=== PATIENT | female | born 1945 | race Caucasian/White ===

== ENCOUNTER 2018-06-10 10:18 | Day surgery (SDC) | payer MEDICARE, OTHER ==
[2018-06-03 16:21] VITALS: BMI 29.5
[~2018-06-10 10:18] MED LIST: ALPRAZolam 0.25 MG TAB PO PRN; ASPIRIN 325 MG TAB PO ONE; SODIUM CHLORIDE 0.9% 1,000 ML in EMPTY BAG 1 BAG IV ONE
[2018-06-10] MEDS ORDERED: ASPIRIN 325 MG TAB ONE (10:54)
[2018-06-10 10:57] LABS: Glucose,Whole Blood 147 mg/dL (75-99)
[2018-06-10] MEDS ORDERED: METOPROLOL TARTRATE 25 MG TAB PO STA (10:58)
[2018-06-10] MEDS ORDERED: LISINOPRIL 10 MG TAB PO STA (10:58)
[2018-06-10] MEDS ORDERED: DIGOXIN 125 MCG TAB PO ONE (10:59)
[2018-06-10 11:39] LABS: INR 1.1 (<1.2); Prothrombin Time 10.8 sec (9.0-12.0)
[2018-06-10] MEDS: BENZOCAINE SPRAY 1 CAN MUCOUS MEM ONE ×2 (11:42→11:48)
[2018-06-10] MEDS ORDERED: MIDAZOLAM 2 MG/2 ML VIAL IV ONE (11:49)
[2018-06-10] MEDS ORDERED: fentaNYL (PF) 50 MCG/ML 2 ML AMP IV ONE (11:49)
--- NOTE | 2018-06-10 12:37 | ECHOT ---
TRANSESOPHAGEAL ECHOCARDIOGRAM DATE OF SERVICE: 06/05/2018 PERFORMING PHYSICIAN: David Hu MD. PROCEDURE PERFORMED: Transesophageal echocardiogram. INDICATION: This is a pleasant 72-year-old female patient who was found recently to have severe cardiomyopathy along with moderate mitral regurgitation and moderate tricuspid regurgitation. The CHAITANYA is for further clarification of the severity of the mitral regurgitation as well as tricuspid regurgitation. COMPLICATION: None. LEVEL OF SEDATION: Moderate with sedation length of 10 minutes. After obtaining an informed consent, explaining the procedure, benefits, risks, complications and alternatives, the patient was brought to the transesophageal echocardiogram suite. A pulse oximetry and heart rate monitors were attached to the patient prior to the procedure. The patient's throat was sprayed using lidocaine locally. Following that, the patient was turned into left lateral position. A bite guard was placed and the patient was then sedated with the above doses of Versed and fentanyl in divided doses. Following that, the transesophageal echocardiogram probe was advanced through the bite guard into the mid esophagus where 2-D echocardiogram images as well as color Doppler images of various cardiac structures were obtained. We evaluated the interatrial septum using 2-D echocardiogram, color Doppler, and contrast study. The procedure was completed. There were no complications. FINDINGS: The left ventricle appears to be dilated. The left ventricular systolic function is severely impaired with EF between 25%-30% with global hypokinesia. The right ventricle is of normal size and function. The left atrium is severely dilated. There was spontaneous echo contrast seen in the left atrium. The aortic valve is thickened and calcified by trileaflet valve without stenosis with trace insufficiency. The mitral valve seems to be thickened and calcified with evidence of moderate mitral regurgitation with vena contract measurement of 0.5 cm. The tricuspid valve seems to be also regurgitant with evidence of moderate regurgitation only. The left atrial appendage appeared to be free from any thrombus. The interatrial septum appeared to be intact. CONCLUSION: 1. Severe cardiomyopathy with ejection fraction around 30%. 2. Severe left atrial enlargement. 3. Intact interatrial septum without any evidence of shunt. 4. Normal left atrial appendage without any evidence of thrombus. 5. Trileaflet aortic valve without stenosis with trace insufficiency. 6. Moderate mitral regurgitation. 7. Moderate tricuspid regurgitation. 8. No evidence of pericardial effusion. MMODL / IJN: [id number] /
[2018-06-10] MEDS ORDERED: VERAPAMIL 2.5 MG/ML 2 ML AMP ONE (13:17)
[2018-06-10] MEDS ORDERED: HEPARIN SODIUM 1,000 UN/ML (10ML VL) ONE (13:17)
[2018-06-10] MEDS ORDERED: LIDOCAINE 1% INJ 10MG/ML (20 ML MDV) ONE (13:17)
[2018-06-10] MEDS ORDERED: SODIUM CHLORIDE 0.9% 1,000 ML IV ONE (13:40)
[2018-06-10] MEDS ORDERED: LIDOCAINE 1% INJ 10MG/ML (20 ML MDV) SQ ONE (13:47)
[2018-06-10] MEDS ORDERED: IOPAMIDOL-370 125ML BTL INJ ONE (13:56)
[2018-06-10] MEDS ORDERED: RX INFO: IV CONTRAST WAS GIVEN 1 EACH MISC MISCELLANE PRN (14:01)
[2018-06-10] MEDS ORDERED: SODIUM CHLORIDE 0.9% 1,000 ML IV SCH (14:15)
--- NOTE | 2018-06-10 16:25 | CC ---
CARDIAC CATHETERIZATION REPORT DATE OF SERVICE: June 10, 2018 PERFORMING PHYSICIAN: David Hu M.D. PROCEDURE PERFORMED: 1. Selective right and left coronary angiogram. 2. Left heart catheterization. INDICATION: This is a pleasant 72-year-old female patient who was diagnosed recently with cardiomyopathy and the heart catheterization is to rule out any severe underlying CAD. APPROACH: Right common femoral artery. COMPLICATION: None. LEVEL OF SEDATION: Moderate. Sedation length 13 minutes. PROCEDURE DESCRIPTION: After obtaining an informed consent, the patient was brought to cardiac field laboratory operator. The right common femoral artery was cannulated using micropuncture technique and a micropuncture wire passed easily. Then I placed a 6-Occitan sheath in the right common femoral artery. After that, I did selective right and left coronary angiogram using JR4 and JL4 catheters. Left heart catheterization was then performed using 6-Occitan pigtail catheter. The procedure was completed without any complication. SELECTIVE CORONARY ANGIOGRAM: 1. The RCA is a large caliber vessel. It is a dominant vessel. It is angiographically normal. 2. The left main is angiographically normal. It bifurcates into the circumflex and left anterior descending artery. 3. Left circumflex is a large caliber vessel. It is a nondominant vessel. The left circumflex is angiographically normal. In the midportion gives rise into a large OM branch which appeared to be angiographically normal. 4. LAD: The proximal LAD is normal. Gives rise into a large diagonal branch which appeared to be angiographically normal. The mid and distal LAD are angiographically normal. HEMODYNAMICS: The left ventricular end-diastolic pressure was 8 mmHg and no gradient was identified across the aortic valve. CONCLUSION: 1. Normal coronary angiogram. 2. Nonischemic cardiomyopathy. 3. Normal left ventricular end-diastolic pressure. POSTPROCEDURE MANAGEMENT: Medical treatment. MMODL / IJN: [id number] /
[2018-06-10] MEDS ORDERED: ATORVASTATIN 10 MG TAB PO SCH (21:00)
[2018-06-10 21:09] LABS: Glucose,Whole Blood 280 mg/dL (75-99)
[2018-06-10] MEDS: MAGNESIUM OXIDE 400 MG TAB PO SCH (21:30)
[2018-06-10] MEDS: METOPROLOL TARTRATE 12.5 MG TAB PO SCH (21:30)
[2018-06-10] MEDS: CALCIUM ACETATE 667 MG CAP PO SCH (21:30)
[2018-06-10] MEDS: BALSALAZIDE DISODIUM 750 MG CAPSULE PO SCH (21:30)
[2018-06-11 05:47] LABS: Glucose,Whole Blood 172 mg/dL (75-99)
[2018-06-11] MEDS ORDERED: LEVOTHYROXINE 25 MCG TAB PO SCH (06:30)
[2018-06-11 08:23] VITALS: RESP 16; TEMP 98
[2018-06-11] MEDS: CALCIUM ACETATE 667 MG CAP PO SCH (08:35)
[2018-06-11] MEDS: METOPROLOL TARTRATE 12.5 MG TAB PO SCH (08:35)
[2018-06-11] MEDS: MAGNESIUM OXIDE 400 MG TAB PO SCH (08:35)
[2018-06-11] MEDS: BALSALAZIDE DISODIUM 750 MG CAPSULE PO SCH (08:37)
[2018-06-11] MEDS ORDERED: CALCIUM CARB-VIT D 500MG-200UN 1 EACH TAB PO SCH (09:00)
[2018-06-11] MEDS ORDERED: LISINOPRIL 10 MG TAB PO SCH (09:00)
[2018-06-11] MEDS ORDERED: MULTIVITAMINS, THERA 1 EACH TAB PO SCH (09:00)
--- NOTE | 2018-06-11 10:02 | P.DS ---
Providers Date of admission: 06/10/2018 Attending physician: David Hu Primary care physician: Adolfo Wang [facility] Hospital Course: This is a pleasant 72-year-old female patient was diagnosed recently with cardiomyopathy as well as moderate to severe MR and TR. She was admitted to the hospital yesterday and underwent transesophageal echocardiogram which revealed moderate MR and moderate TR only. Subsequently she underwent a heart catheterization and that revealed mild obstructive coronary artery disease. She was diagnosed with nonischemic cardiomyopathy. The patient was kept overnight because during the heart catheterization she was bradycardic and the heart rate goes down to the 30s and 40s but she is in atrial fibrillation all the time. I did decrease the dose of metoprolol and I did stop the digoxin. On follow-up with her today, she remains asymptomatic from a cardiac standpoint. The heart rate has improved to be in the 60s and 70s. The patient can be discharged home and I'll follow-up with the patient at [facility]. Plan - Discharge Summary Discharge Rx Participant: No New Discharge Prescriptions: New Metoprolol Tartrate [Lopressor] 12.5 mg PO BID tab Continue Warfarin [Coumadin] 6 mg PO SUSA Warfarin [Coumadin] 3 mg PO MOTUWETHFR Multivitamins, Thera [Multivitamin (formulary)] 1 tab PO DAILY Mesalamine [Delzicol] 400 mg PO BID Lisinopril [Zestril] 10 mg PO DAILY Atorvastatin [Lipitor] 10 mg PO HS Calcium Carbonate/Vitamin D3 [Calcium 600-Vit D3 400 Tablet] 1 each PO DAILY metFORMIN HCL 1,000 mg PO BID Magnesium Oxide [Mag-Ox] 400 mg PO BID Levothyroxine Sodium [Synthroid] 25 mcg PO DAILY Calcium Acetate [PhosLo] 667 mg PO BID Insulin Glargine,Hum.rec.anlog [Basaglar Kwikpen U-100] 10 - 12 unit SQ DAILY @1999 Discontinued Digoxin [Lanoxin] 125 mcg PO DAILY Metoprolol Tartrate [Lopressor] 25 mg PO BID Discharge Medication List Atorvastatin [Lipitor] 10 mg PO HS 06/03/18 [History] Calcium Acetate [PhosLo] 667 mg PO BID 06/03/18 [History] Calcium Carbonate/Vitamin D3 [Calcium 600-Vit D3 400 Tablet] 1 each PO DAILY [History] Insulin Glargine,Hum.rec.anlog [Basaglar Kwikpen U-100] 10 - 12 unit SQ DAILY@ 199906/03/18 [History] Levothyroxine Sodium [Synthroid] 25 mcg PO DAILY 06/03/18 [History] Lisinopril [Zestril] 10 mg PO DAILY 06/03/18 [History] Magnesium Oxide [Mag-Ox] 400 mg PO BID 06/03/18 [History] Mesalamine [Delzicol] 400 mg PO BID 06/03/18 [History] Multivitamins, Thera [Multivitamin (formulary)] 1 tab PO DAILY 06/03/18 [History ] Warfarin [Coumadin] 3 mg PO MOTUWETHFR 06/03/18 [History] Warfarin [Coumadin] 6 mg PO SUSA 06/03/18 [History] metFORMIN HCL 1,000 mg PO BID 06/03/18 [History] Metoprolol Tartrate [Lopressor] 12.5 mg PO BID tab 06/11/18 [Rx] Follow up Appointment(s)/Referral(s): David Hu MD [STAFF PHYSICIAN] - 06/26/18 4:15 pm ( at [facility]) Patient Instructions/Handouts: *Surgery [facility] - After Heart Catheterization - Multifocal Lens Assembler Instructions, Left Heart Catheterization (DC)
[2018-06-11 11:25] LABS: Glucose,Whole Blood 407 mg/dL (75-99)
[2018-06-11 11:30] VITALS: BP 155/99; PULSE 84
[2018-06-11] MEDS ORDERED: INSULIN ASPART 100 UNIT/ML 1 ML 10 ML VIAL SQ SCH (12:30)
== END 2018-06-11 13:01 ==
LOC: CATHCVL 10:18 → EEVIPCON 12:00 → 3SCARD 13:58 → CATHCVL 06-11 13:01
PROVIDERS: ATTEND Internal Medicine Interventional Cardiology
DX: I42.9 Cardiomyopathy, unspecified (principal); I08.3 Combined rheumatic disorders of mitral, aortic and tricuspid valves; I48.2 Chronic atrial fibrillation; I10 Essential (primary) hypertension; E78.5 Hyperlipidemia, unspecified; E11.9 Type 2 diabetes mellitus without complications; Z93.3 Colostomy status; Z79.01 Long term (current) use of anticoagulants; Z79.84 Long term (current) use of oral hypoglycemic drugs; Z79.890 Hormone replacement therapy; Z79.899 Other long term (current) drug therapy
CPT/HCPCS: 93312; 93320; 93325; 93458; 85610; C1894 ×2; C1769 ×2; J2250; J2001; J3010; Q9967

== ENCOUNTER 2019-03-31 12:14 | Inpatient (IN) | payer MEDICARE, OTHER ==
[2019-03-31 17:10] LABS: Glucose,Whole Blood 116 mg/dL (75-99)
[2019-03-31] MEDS: FUROSEMIDE 10 MG/ML 4 ML VIAL IV SCH (17:17)
--- NOTE | 2019-03-31 18:41 | P.HPIM ---
History of Present Illness patient is a pleasant 71-year-old the female was transferred from [facility] after she presented there with compensative short of breath patient did not give me any clear history of orthopnea proximal nocturnal dyspnea although patient does appear to have JVD on the right side and does have some pedal edema. CAT scan of the abdomen as well as the chest was obtained from the facility that she came from Of the Abdomen Did Not Reveal Any Pulmonary Edema at That Time Although I Was Unable to View the Images by Myself Because of Which I'll Obtain a Chest X-Ray. BNP Will Be Obtained As Well. Patient Had anechocardiogram in the past Showed Ejection Fraction of 30% Severe Nonischemic Any Myopathy and Patient Does Have History of Chronic A. fib Patient Was in A. fib When She Presented There Was Given a Dose of Cardizem Was on IV Cardizem Actually Patient Heart Rate Came down to 50s Here Patient Will Be Started on M etoprolol Here Patient Was on Digoxin and Metoprolol in the past Digoxin Was Discontinued Because of Bradycardia Patient May Even Have Sick Sinus Syndrome and the Metoprolol Dose Was Decreased at That Time to 12.5 Twice a Day.patient had moderate TR and MR. Patient was believed to have abdominal wall cellulitis as well patient is comparing of some abdominal pain which is pretty much nonspecific CAT scan of the abdomen did not show any significant abnormality patient does have redness around thelost to my side patient underwent bowel resection not sure why patient was alert and unable to provide me good history. Patient is also found to have elevated INR of around 8.3. Coumadin is being held at this time. Patient has serum creatinine of 1.60 do not have any baseline available unsure whether patient has chronic kidney disease acute renal failure. Review of Systems REVIEW OF SYSTEMS: CONSTITUTIONAL: No fever, no malaise, no fatigue. HEENT: No recent visual problems or hearing problems. Denied any sore throat. CARDIOVASCULAR: No chest pain, o no syncope. PULMONARY: No shortness of breath, no cough, no hemoptysis. GASTROINTESTINAL: No diarrhea, no nausea, no vomiting, no abdominal pain. NEUROLOGICAL: No headaches, no weakness, no numbness. HEMATOLOGICAL: Denies any bleeding or petechiae. GENITOURINARY: Denies any burning micturition, frequency, or urgency. MUSCULOSKELETAL/RHEUMATOLOGICAL: Denies any joint pain, swelling, or any muscle pain. ENDOCRINE: Denies any polyuria or polydipsia. The rest of the 14-point review of systems is negative. Past Medical History Past Medical History: Atrial Fibrillation, Diabetes Mellitus, Hyperlipidemia, Hypertension, Thyroid Disorder Additional Past Medical History / Comment(s): MILD DEVELOPMENTAL DELAY, [facility] COLOSTOMY BAG. WEARS DEPENDS. History of Any Multi-Drug Resistant Organisms: None Reported Past Surgical History: Bladder Surgery, Bowel Resection Additional Past Surgical History / Comment(s): HAS COLOSTOMY. Past Anesthesia/Blood Transfusion Reactions: Unable to Obtain Past Psychological History: No Psychological Hx Reported Smoking Status: Never smoker Past Alcohol Use History: None Reported Past Drug Use History: None Reported - Past Family History Mother Family Medical History: Unable to Obtain Medications and Allergies Home Medications Medication Instructions Recorded Confirmed Type Atorvastatin [Lipitor] 10 mg PO HS 06/03/18 03/31/19 History Calcium Acetate [PhosLo] 667 mg PO DAILY 06/03/18 03/31/19 History Calcium Carbonate/Vitamin D3 1 tab PO DAILY 06/03/18 03/31/19 History [Calcium 600-Vit D3 400 Tablet] Insulin Glargine,Hum.rec.anlog See Protocol SQ DAILY 06/03/18 03/31/19 History [Basaglar Kwikpen U-100] Levothyroxine Sodium [Synthroid] 25 mcg PO DAILY 06/03/18 03/31/19 History Lisinopril [Zestril] 10 mg PO DAILY 06/03/18 03/31/19 History Magnesium Oxide [Mag-Ox] 400 mg PO BID 06/03/18 03/31/19 History Multivitamins, Thera [Multivitamin 1 tab PO DAILY 06/03/18 03/31/19 History (formulary)] metFORMIN HCL 1,000 mg PO BID 06/03/18 03/31/19 History Furosemide [Lasix] 20 mg PO DAILY 03/31/19 03/31/19 History Loratadine 10 mg PO DAILY 03/31/19 03/31/19 History Mesalamine [Delzicol] 400 mg PO BID 03/31/19 03/31/19 History Metoprolol Tartrate [Lopressor] 25 mg PO BID 03/31/19 03/31/19 History Warfarin Sodium [Coumadin] 6 mg PO DIRECTED 03/31/19 03/31/19 History Allergies Allergy/AdvReac Type Severity Reaction Status Date / Time No Known Allergies Allergy Verified 03/31/19 16:38 Physical Exam Vitals: Intake and Output 03/31/19 03/31/19 03/31/19 06:59 14:59 22:59 Intake Total 480 Output Total 100 Balance 380 Intake: Oral 480 Output: Urine 100 Other: # Voids 1 # Bowel Movements 0 Weight 65.7 kg PHYSICAL EXAMINATION: GENERAL: The patient is alert and oriented x3, not in any acute distress. Well developed, well nourished. HEENT: Pupils are round and equally reacting to light. EOMI. No scleral icterus. No conjunctival pallor. Normocephalic, atraumatic. No pharyngeal erythema. No thyromegaly. CARDIOVASCULAR: S1 and S2 present. No murmurs, rubs, or gallops. regularly irregular rhythm PULMONARY: Chest is clear to auscultation, no wheezing or crackles. ABDOMEN: Soft, 10 has a colostomy in the left side there is definitely redness around the colostomy site area although very minimal unsure whether that is actually an infection or just inflammation expected. MUSCULOSKELETAL: No joint swelling or deformity. EXTREMITIES: No cyanosis, clubbing, or pedal edema. NEUROLOGICAL: Gross neurological examination did not reveal any focal deficits. SKIN: No rashes. Results Labs: Abnormal Lab Results - Last 24 Hours (Table) 03/31/19 Range/Units 16:57 POC Glucose (mg/dL) 116 H (75-99) mg/dL Thrombosis Risk Factor Assmnt - Choose All That Apply Each Factor Represents 1 point: Swollen legs (current) Each Risk Factor Represents 3 Points: Age 75 years or older Thrombosis Risk Factor Assessment Total Risk Factor Score: 4 Thrombosis Risk Factor Assessment Level: Moderate Risk Assessment and Plan Plan: -possible congestive heart failure chronic systolic dysfunction with possibility of acute exacerbation we'll obtain a chest x-ray and a BNP level clinically appears to have us CHF exacerbation with elevated JVD and bilateral pedal edema. His chest x-ray didn't show any pulmonary edema the there is no significant elevation of BNP IV Lasix will be discontinued as patient is already hyponatremic which I believe is secondary to hypovolemic hyponatremia -Possible hypervolemic hyponatremia: Stated to improve with IV Lasix -Congestive heart failure chronic systolic dysfunction with acute exacerbation patient does have moderate MR is as well as TR -Atrial fibrillation chronic A. fib presently rate controlled patient will be resumed on metoprolol, because of her low EF diltiazem will be discontinued and not tested at this time. -Renal failure unsure whether it's acute or chronic may be related to prerenal azotemia from menstrual heart failure -Type 2 diabetes mellitus -Hyperlipidemia -Hypothyroidism - mild elevation of troponin probably related to A. fib and acute renal failure. - possible cellulitis of the colostomy area will use doxycycline I do not believe patient will require higher antibiotics -suprathoracic cannot Coumadin will be held patient received vitamin K 10 mg at [facility]
[2019-03-31 20:48] LABS: Glucose,Whole Blood 185 mg/dL (75-99)
[2019-03-31] MEDS ORDERED: METOPROLOL TARTRATE 12.5 MG TAB PO SCH (21:00)
[2019-03-31] MEDS: METOPROLOL TARTRATE 25 MG TAB PO SCH (21:35)
[2019-03-31] MEDS: ATORVASTATIN 10 MG TAB PO SCH (21:35)
[2019-03-31] MEDS: DOXYCYCLINE 100 MG CAP PO SCH (21:35)
[2019-03-31] MEDS: BALSALAZIDE DISODIUM 750 MG CAPSULE PO SCH (21:36)
[2019-03-31] MEDS: INSULIN ASPART (NovoLOG) 100 UNIT/ML VIAL SQ SCH (21:36)
[2019-03-31] MEDS: MAGNESIUM OXIDE 400 MG TAB PO SCH (21:36)
--- NOTE | 2019-03-31 22:06 | XR ---
EXAMINATION: XR chest 1V portable DATE AND TIME: 03/31/2019 7:58 PM CLINICAL INDICATION: Dyspnea; chf TECHNIQUE: Portable AP upright COMPARISON: None FINDINGS: The cardiac silhouette is moderately enlarged. The lungs appear well-expanded and essentially clear. The pleural spaces are negative. No acute skeletal or soft tissue findings. IMPRESSION: No acute process.
[2019-04-01 01:19] LABS: Appearance,Urine Clear (Clear); Bilirubin,Urine Negative (Negative); Blood,Urine Negative (Negative); Color,Urine Light Yellow; Glucose,Urine (UA) Negative (Negative); Ketones,Urine Negative (Negative); Leukocyte Esterase,Urine Negative (Negative); Mucus,Urine Rare /hpf; Nitrite,Urine Negative (Negative); Protein,Urine 2+ (Negative); RBC,Urine <1 /hpf (0-5); Squamous Epithelial Cell,Urine <1 /hpf (0-4); Urobilinogen,Urine <2.0 mg/dL (<2.0)
[2019-04-01 06:30] LABS: Glucose,Whole Blood 73 mg/dL (75-99)
[2019-04-01 06:40] LABS: HCT 39.3 % (34.0-46.0); HGB 12.2 gm/dL (11.4-16.0); Hypochromasia Slight; MCHC 30.9 g/dL (31.0-37.0); MCV 93.8 fL (80.0-100.0); Mean Platelet Volume 7.1; Platelet Count 270 k/uL (150-450); RBC 4.19 m/uL (3.80-5.40); RDW 14.5 % (11.5-15.5); WBC 5.5 k/uL (3.8-10.6)
[2019-04-01] MEDS: LEVOTHYROXINE 25 MCG TAB PO SCH (06:50)
[2019-04-01] MEDS: FUROSEMIDE 10 MG/ML 4 ML VIAL IV SCH ×2 (06:50→17:57)
[2019-04-01] MEDS: INSULIN ASPART (NovoLOG) 100 UNIT/ML VIAL SQ SCH ×4 (06:50→21:18)
[2019-04-01 06:59] LABS: Calcium 7.9 mg/dL (8.4-10.2); Potassium 4.4 mmol/L (3.5-5.1)
[2019-04-01] MEDS: MAGNESIUM OXIDE 400 MG TAB PO SCH ×2 (08:10→21:17)
[2019-04-01] MEDS: METOPROLOL TARTRATE 25 MG TAB PO SCH ×2 (08:10→21:17)
[2019-04-01] MEDS: CALCIUM ACETATE 667 MG CAP PO SCH (08:10)
[2019-04-01] MEDS: CALCIUM CARB-VIT D 500MG-200UN 1 EACH TAB PO SCH (08:10)
[2019-04-01] MEDS: BALSALAZIDE DISODIUM 750 MG CAPSULE PO SCH ×3 (08:11→21:17)
[2019-04-01] MEDS: DOXYCYCLINE 100 MG CAP PO SCH ×2 (08:11→21:17)
[2019-04-01 10:06] VITALS: BMI 25.2
--- NOTE | 2019-04-01 10:15 | P.CRDCN ---
History of Present Illness Consult date: 04/01/19 Requesting physician: Yves E Mei Consult reason: atrial fibrillation Chief complaint: Shortness of breath History of present illness: Is a pleasant 73-year-old female who follows with Dr. Steel in [place] office, she has history of chronic persistent atrial fibrillation, diabet es, hypertension, hyperlipidemia, hypothyroidism, nonischemic cardiomyopathy, patient underwent a cardiac catheterization in May 2018 which revealed normal coronary arteries, nonischemic cardiomyopathy and normal left ventricular end-diastolic pressure, she also had a CHAITANYA performed at that time which showed severe cardiomyopathy with an EF of 30%, severe left atrial enlargement, intact interatrial septum without evidence of shunt, normal left atrial appendage with no evidence of thrombus, trileaflet aortic valve without stenosis, moderate MR, moderate TR with no evidence of any pericardial effusion. Patient presented to [facility] with symptoms of shortness of breath, she underwent a CT of the chest abdomen and pelvis which revealed a small right-sided pleural effusion several 5-6 mm nonspecific soft tissue nodules in the right lung field, limited evaluation due to respiratory motion especially in the upper abdomen, pancreas was nondiagnostic, he. According to the patient, approximately 3 weeks ago she was dealing with the stomach flu at home. Most recently she states that she could hardly breathe. She was still having some mild abdominal discomfort. Blood pressure on arrival there 117/100, heart rate 140, respirations 20, afebrile. Sodium 132, potassium 4.6, chloride 98, CO2 26, white blood cell count 6.8, hemoglobin 14, platelet count 302. CK 142, AST 90, ALT 62, total bili 0.6, troponin 0.06. Pro time 41 with an INR of 8.6. EKG performed [facility] showed atrial fibrillation with a rapid ventricular response. Chest x-ray on arrival here did not reveal any acute process. Blood pressure 140/70 with a heart rate in the 70s, 99% on 2 L of oxygen. Weight blood cell count 5.5, hemoglobin 12.2, platelet count 270. Sodium 138, potassium 4.4, BUN 39 and creatinine 1.5. Troponin 0.033, 0.031. BNP level 19,500.. TSH 2.4. The patient was initiated on IV Lasix, she's been diuresing well through the night last night and overall she does state that her breathing is better than on presentation to [place] yesterday, however she does not feel back to her normal at this point. Past Medical History Past Medical History: Atrial Fibrillation, Diabetes Mellitus, Hyperlipidemia, Hypertension, Thyroid Disorder Additional Past Medical History / Comment(s): MILD DEVELOPMENTAL DELAY, RESIDES AT [facility] 1990. COLOSTOMY BAG. WEARS DEPENDS. History of Any Multi-Drug Resistant Organisms: None Reported Past Surgical History: Bladder Surgery, Bowel Resection Additional Past Surgical History / Comment(s): HAS COLOSTOMY. Past Anesthesia/Blood Transfusion Reactions: Unable to Obtain Past Psychological History: No Psychological Hx Reported Smoking Status: Never smoker Past Alcohol Use History: None Reported Past Drug Use History: None Reported - Past Family History Mother Family Medical History: Unable to Obtain Medications and Allergies Home Medications Medication Instructions Recorded Confirmed Type Atorvastatin [Lipitor] 10 mg PO HS 06/03/18 03/31/19 History Calcium Acetate [PhosLo] 667 mg PO DAILY 06/03/18 03/31/19 History Calcium Carbonate/Vitamin D3 1 tab PO DAILY 06/03/18 03/31/19 History [Calcium 600-Vit D3 400 Tablet] Insulin Glargine,Hum.rec.anlog See Protocol SQ DAILY 06/03/18 03/31/19 History [Basaglar Kwikpen U-100] Levothyroxine Sodium [Synthroid] 25 mcg PO DAILY 06/03/18 03/31/19 History Lisinopril [Zestril] 10 mg PO DAILY 06/03/18 03/31/19 History Magnesium Oxide [Mag-Ox] 400 mg PO BID 06/03/18 03/31/19 History Multivitamins, Thera [Multivitamin 1 tab PO DAILY 06/03/18 03/31/19 History (formulary)] metFORMIN HCL 1,000 mg PO BID 06/03/18 03/31/19 History Furosemide [Lasix] 20 mg PO DAILY 03/31/19 03/31/19 History Loratadine 10 mg PO DAILY 03/31/19 03/31/19 History Mesalamine [Delzicol] 400 mg PO BID 03/31/19 03/31/19 History Metoprolol Tartrate [Lopressor] 25 mg PO BID 03/31/19 03/31/19 History Warfarin Sodium [Coumadin] 6 mg PO DIRECTED 03/31/19 03/31/19 History Allergies Allergy/AdvReac Type Severity Reaction Status Date / Time No Known Allergies Allergy Verified 03/31/19 16:38 Physical Exam Vitals: Vital Signs Temp Pulse Resp BP Pulse Ox 04/01/19 08:00 98.5 F 75 18 140/75 99 04/01/19 04:00 98.4 F 74 19 113/87 99 04/01/19 00:00 98.1 F 86 19 107/65 99 03/31/19 20:00 97.7 F 124 H 19 109/69 100 Intake and Output 03/31/19 04/01/19 04/01/19 22:59 06:59 14:59 Intake Total 480 Output Total 1825 650 50 Balance -1345 -650 -50 Intake: Oral 480 Output: Urine 1825 600 Stool 50 50 Other: Voiding Method Bedside Commode Bedside Commode # Voids 1 2 # Bowel Movements 0 Weight 65.7 kg 64.5 kg PHYSICAL EXAMINATION: GENERAL: 83-year-old female in no acute distress at the time of my examination HEENT: Head is atraumatic, normocephalic. Pupils equal, round. Sclera anicteric. Conjunctiva are clear. Mucous membranes of the mouth are moist. Neck is supple. There is elevated jugular venous pressure. No carotid bruit is heard. HEART EXAMINATION: Heart S1 and S2 irregularly irregular a systolic murmur is heard CHEST EXAMINATION: Lungs reveal diminished air entry to bilateral bases. ABDOMEN: Soft, patient has a colostomy in the left side with evidence of significant redness EXTREMITIES:[ 2+ peripheral pulses with 2+ evidence of peripheral edema evidence of ulcerations and erythema bilaterally to the lower extremities NEUROLOGIC patient is awake, alert and oriented 3 . . Results 04/01/19 06:05 04/01/19 06:05 Cardiac Enzymes 03/31/19 03/31/19 Range/Units 17:43 22:19 Troponin I 0.033 0.031 (0.000-0.034) ng/mL CBC 04/01/19 Range/Units 06:05 WBC 5.5 (3.8-10.6) k/uL RBC 4.19 (3.80-5.40) m/uL Hgb 12.2 (11.4-16.0) gm/dL Hct 39.3 (34.0-46.0) % Plt Count 270 (150-450) k/uL Comprehensive Metabolic Panel 04/01/19 Range/Units 06:05 Sodium 138 (137-145) mmol/L Potassium 4.4 (3.5-5.1) mmol/L Chloride 104 (98-107) mmol/L Carbon Dioxide 27 (22-30) mmol/L BUN 39 H (7-17) mg/dL Creatinine 1.51 H (0.52-1.04) mg/dL Glucose 61 L (74-99) mg/dL Calcium 7.9 L (8.4-10.2) mg/dL Current Medications Generic Name Dose Route Start Last Admin Trade Name Domingoq PRN Reason Stop Dose Admin Atorvastatin Calcium 10 mg 03/31/19 21:00 03/31/19 21:35 Lipitor PO 10 mg HS ISABEL Administration Balsalazide 2,250 mg 03/31/19 22:00 04/01/19 08:11 Colazal PO 2,250 mg TID ISABEL Administration Calcium Acetate 667 mg 04/01/19 09:00 04/01/19 08:10 Phoslo PO 667 mg DAILY ISABEL Administration Calcium Carbonate 1 each 04/01/19 09:00 04/01/19 08:10 Oscal 500+D PO 1 each DAILY ISABEL Administration Doxycycline Monohydrate 100 mg 03/31/19 21:00 04/01/19 08:11 Vibramycin PO 100 mg BID ISABEL Administration Furosemide 40 mg 03/31/19 17:00 04/01/19 06:50 Lasix IV 40 mg Q12H ISABEL Administration Insulin Aspart 0 unit 03/31/19 21:00 04/01/19 06:50 Novolog SQ Not Given [facility] Protocol Levothyroxine Sodium 25 mcg 04/01/19 06:30 04/01/19 06:50 Synthroid PO 25 mcg DAILY@0630 ISABEL Administration Magnesium Oxide 400 mg 03/31/19 21:00 04/01/19 08:10 Mag-Ox PO 400 mg BID ISABEL Administration Metoprolol Tartrate 25 mg 03/31/19 21:00 04/01/19 08:10 Lopressor PO 25 mg BID ISABEL Administration Intake and Output 03/31/19 04/01/19 04/01/19 22:59 06:59 14:59 Intake Total 480 Output Total 1275 650 50 Balance -1345 -650 -50 Intake: Oral 480 Output: Urine 1825 600 Stool 50 50 Other: Voiding Method Bedside Commode Bedside Commode # Voids 1 2 # Bowel Movements 0 Weight 65.7 kg 64.5 kg 04/01/19 06:05 04/01/19 06:05 EKG Interpretations (text) EKG shows atrial fibrillation with rapid ventricular response Assessment and Plan Plan: Assessment and plan #1 systolic congestive heart failure acute on chronic #2 chronic persistent atrial fibrillation with supratherapeutic INR #3 acute on chronic renal failure #4 hyperlipidemia #5 hypothyroidism #6 non-[place] troponin elevation likely secondary to A. fib with RVR #7 possible abdominal cellulitis Plan We'll repeat an echocardiogram with Doppler study. Continue current dose of IV Lasix. We'll also check to see if the patient has coverage for Eliquis, and then make the transition from Coumadin to Eliquis the INR is 2. Continue 25 mg of metoprolol twice a day, monitor intake and output along with daily weights and daily lytes BUN and creatinine. Obtain TSH level. Further recommendations to follow. DNP note has been reviewed, I agree with a documented findings and plan of care. Patient was seen and examined.
--- NOTE | 2019-04-01 11:00 | P.PN ---
Subjective 72-year-old admitted with the can start failure exacerbation does have chronic A. fib presently rate controlled. Patient is feeling better still has pulmonary edema can you with IV Lasix. Serum creatinine improved marginally. Patient has chronic systolic dysfunction ejection fraction of 30% nonischemic cardiomyopathy.patient is still short of breath. But improvingpatient's BNP significantly elevated. Constitutional: Denied any fatigue denied any fever. Cardio vascular: denied any chest pain, palpitations Gastrointestinal denied any nausea vomiting Pulmonary: Denied any shortness of breath cough Neurologic denied any new focal deficits All inpatient medications were reviewed and appropriate changes in these medications as dictated in the interval history and assessment and plan. Objective - Vital Signs Vital signs: Vital Signs Temp 98.5 F 04/01/19 08:00 Pulse 75 04/01/19 08:00 Resp 18 04/01/19 08:00 BP 140/75 04/01/19 08:00 Pulse Ox 99 04/01/19 08:00 Intake & Output 03/31/19 04/01/19 04/01/19 18:59 06:59 18:59 Intake Total 480 Output Total 100 2375 50 Balance 380 -2375 -50 Weight 65.7 kg 64.5 kg 64.5 kg Intake: Oral 480 Output: Urine 100 2325 Stool 50 50 Other: Voiding Method Bedside Commode # Voids 1 2 # Bowel Movements 0 - Exam PHYSICAL EXAMINATION: GENERAL: The patient is alert and oriented x3, not in any acute distress. Well developed, well nourished. HEENT: Pupils are round and equally reacting to light. EOMI. No scleral icterus. No conjunctival pallor. Normocephalic, atraumatic. No pharyngeal erythema. No thyromegaly. CARDIOVASCULAR: S1 and S2 present. No murmurs, rubs, or gallops. regularly irregular rhythm PULMONARY: Chest is clear to auscultation, no wheezing or crackles. ABDOMEN: Soft, has a colostomy in the left side there is definitely redness around the colostomy site area although very minimal unsure whether that is actually an infection or just inflammation expected. MUSCULOSKELETAL: No joint swelling or deformity. EXTREMITIES: No cyanosis, clubbing, or pedal edema. NEUROLOGICAL: Gross neurological examination did not reveal any focal deficits. SKIN: No rashes. - Labs CBC & Chem 7: 04/01/19 06:05 08/14/19 06:05 Labs: Abnormal Lab Results - Last 24 Hours (Table) 03/31/19 03/31/19 03/31/19 Range/Units 16:27 16:57 20:47 MCHC (31.0-37.0) g/dL BUN (7-17) mg/dL Creatinine (0.52-1.04) mg/dL Glucose (74-99) mg/dL POC Glucose (mg/dL) 116 H 185 H (75-99) mg/dL Calcium (8.4-10.2) mg/dL Urine Protein 2+ H (Negative) Urine Mucus Rare H (None) /hpf 04/01/19 04/01/19 04/01/19 Range/Units 06:05 06:05 06:27 MCHC 30.9 L (31.0-37.0) g/dL BUN 39 H (7-17) mg/dL Creatinine 1.51 H (0.52-1.04) mg/dL Glucose 61 L (74-99) mg/dL POC Glucose (mg/dL) 73 L (75-99) mg/dL Calcium 7.9 L (8.4-10.2) mg/dL Urine Protein (Negative) Urine Mucus (None) /hpf Assessment and Plan Plan: -possible congestive heart failure chronic systolic dysfunction with acute exacerbation, improving with IV Lasix - hypervolemic hyponatremia:with Lasix -[id number] heart failure chronic systolic dysfunction with acute exacerbation patient does have moderate MR is as well as TR -Atrial fibrillation chronic A. fib presently rate controlled patient will be resumed on metoprolol. -Renal failure unsure whether it's acute or chronic may be related to prerenal azotemia from congestive heart failure -Type 2 diabetes mellitus -Hyperlipidemia -Hypothyroidism - mild elevation of troponin probably related to A. fib and acute renal failure. - possible cellulitis of the colostomy area will use doxycycline I do not believe patient will require higher antibiotics -(therapeutic INR Coumadin will be held patient received vitamin K 10 mg at [facility]
[2019-04-01 11:35] LABS: INR 1.5 (<1.2); Prothrombin Time 15.1 sec (9.0-12.0)
[2019-04-01 12:20] LABS: Glucose,Whole Blood 202 mg/dL (75-99)
[2019-04-01 17:12] LABS: Glucose,Whole Blood 115 mg/dL (75-99)
--- NOTE | 2019-04-01 17:39 | P.CNPUL ---
History of Present Illness Consult date: 04/01/19 Reason for consult: dyspnea History of present illness: 73-year-old female patient who came into the hospital because of worsening shortness of breath, exertional and sent and the patient was having orthopnea and lower extremity edema that was progressively getting worse. The patient has undergone a previous catheterization back in May 2019 and the patient was found to have normal coronaries. The patient has nonischemic cardiomyopathy and it previous CHAITANYA had shown severe cardiomyopathy with an ejection fraction of 30% and severe left atrial enlargement. The patient was also found to have 5 aortic valve without stenosis, moderate mitral regurgitation, moderate tricuspid regurgitation without evidence of any pericardial effusion. The patient has also history of chronic atrial fibrillation, hypertension and hyperlipidemia and diabetes mellitus and hypothyroidism. The patient initially went to [facility] with a CAT scan of the chest abdomen and pelvis was done and showed a small right-sided pleural effusion in addition to that the rest of the abdominal findings were essentially within normal limits. The patient subsequently got transferred to our hospital. Her INR was toxic at [facility] and the patient was given 10 of vitamin K and currently have PT/INR is subtherapeutic. Also, she was in atrial fibrillation with rapid ventricular response and the rate is controlled for now. She is currently on 2 L of oxygen by nasal cannula and her pulse ox is 99%. BNP level was 19,500. Troponins were 0.032 respectively. The patient was started on IV Lasix pH is already feeling better. She is less short of breath compared to yesterday. No angina. No palpitation. No syncope. No pleurisy. No aspiration. She lives in a foster shelter. She is on long-term anticoagulation with warfarin. Her thyroid function test is no within normal limits. Review of Systems Constitutional: Reports fatigue, Reports lethargy, Reports weight gain Eyes: denies as per HPI, denies blurred vision, denies bulging eye, denies decreased vision, denies diplopia, denies discharge, denies dry eye, denies irritation, denies itching, denies pain, denies photophobia, denies loss of peripheral vision, denies loss of vision, denies tunnel vision/blind spots Ears: deny: decreased hearing, ear discharge, earache, tinnitus Ears, nose, mouth and throat: Denies headache, Denies sore throat Breasts: absent: as per HPI, change in shape, gynecomastia, masses, nipple discharge, pain, skin changes, swelling Cardiovascular: Reports decreased exercise tolerance, Reports dyspnea on exertion, Reports leg edema, Reports orthopnea, Reports palpitations, Reports shortness of breath Respiratory: Reports dyspnea Gastrointestinal: Denies abdominal pain, Denies diarrhea, Denies nausea, Denies vomiting Genitourinary: Reports as per HPI Menstruation: Reports as per HPI Musculoskeletal: Reports as per HPI Musculoskeletal: bilateral: ankle swelling, absent: ankle pain, ankle stiffness Integumentary: Reports as per HPI Neurological: Reports as per HPI (The patient has a mild developmental delay), Reports weakness Psychiatric: Reports as per HPI (The patient has mild developmental delay), Reports confusion Hematologic/Lymphatic: Reports as per HPI Allergic/Immunologic: Reports as per HPI Past Medical History Past Medical History: Atrial Fibrillation, Heart Failure, Diabetes Mellitus, Hyperlipidemia, Hypertension, Thyroid Disorder Additional Past Medical History / Comment(s): Mild developmental delay, the patient lives in a foster home since 1990, CHF with systolic heart failure/nonischemic cardiomyopathy, chronic atrial fibrillation, long-term antibiotic ventilation with warfarin, hypertension, hyperlipidemia, diabetes mellitus, hypothyroidism History of Any Multi-Drug Resistant Organisms: None Reported Past Surgical History: Bladder Surgery, Bowel Resection Additional Past Surgical History / Comment(s): HAS COLOSTOMY. Past Anesthesia/Blood Transfusion Reactions: Unable to Obtain Past Psychological History: No Psychological Hx Reported Smoking Status: Never smoker Past Alcohol Use History: None Reported Past Drug Use History: None Reported - Past Family History Mother Family Medical History: Unable to Obtain Medications and Allergies Home Medications Medication Instructions Recorded Confirmed Type Atorvastatin [Lipitor] 10 mg PO HS 06/03/18 03/31/19 History Calcium Acetate [PhosLo] 667 mg PO DAILY 06/03/18 03/31/19 History Calcium Carbonate/Vitamin D3 1 tab PO DAILY 06/03/18 03/31/19 History [Calcium 600-Vit D3 400 Tablet] Insulin Glargine,Hum.rec.anlog See Protocol SQ DAILY 06/03/18 03/31/19 History [Basaglar Kwikpen U-100] Levothyroxine Sodium [Synthroid] 25 mcg PO DAILY 06/03/18 03/31/19 History Lisinopril [Zestril] 10 mg PO DAILY 06/03/18 03/31/19 History Magnesium Oxide [Mag-Ox] 400 mg PO BID 06/03/18 03/31/19 History Multivitamins, Thera [Multivitamin 1 tab PO DAILY 06/03/18 03/31/19 History (formulary)] metFORMIN HCL 1,000 mg PO BID 06/03/18 03/31/19 History Furosemide [Lasix] 20 mg PO DAILY 03/31/19 03/31/19 History Loratadine 10 mg PO DAILY 03/31/19 03/31/19 History Mesalamine [Delzicol] 400 mg PO BID 03/31/19 03/31/19 History Metoprolol Tartrate [Lopressor] 25 mg PO BID 03/31/19 03/31/19 History Warfarin Sodium [Coumadin] 6 mg PO DIRECTED 03/31/19 03/31/19 History Allergies Allergy/AdvReac Type Severity Reaction Status Date / Time No Known Allergies Allergy Verified 03/31/19 16:38 Physical Exam Vitals: Vital Signs Temp Pulse Resp BP Pulse Ox 04/01/19 14:44 67 18 04/01/19 12:00 98.3 F 67 18 128/89 95 04/01/19 11:36 75 18 04/01/19 08:00 98.5 F 75 18 140/75 99 04/01/19 04:00 98.4 F 74 19 113/87 99 04/01/19 00:00 98.1 F 86 19 107/65 99 03/31/19 20:00 97.7 F 124 H 19 109/69 100 Intake and Output 04/01/19 04/01/19 04/01/19 06:59 14:59 22:59 Output Total 650 550 Balance -650 -550 Output: Urine 600 400 Stool 50 150 Other: Voiding Method Bedside Commode # Voids 2 Weight 64.5 kg 64.5 kg GENERAL: The patient is alert and oriented x3, not in any acute distress. Well developed, well nourished. Head exam was generally normal. There was no scleral icterus or corneal arcus. Mucous membranes were moist. Neck was supple and without jugular venous distension, thyromegaly, or carotid bruits. Carotids were easily palpable bilaterally. There was no adenopathy. CARDIOVASCULAR: The patient has an irregular S1 and S2 present, and this is consistent with atrial fibrillation. No murmurs, rubs, or gallops. regularly irregular rhythm PULMONARY: Chest is clear to auscultation, and the patient diminished breath on the collected in lung bases bilaterally ABDOMEN: Soft, has a colostomy in the left side there is definitely redness around the colostomy site area although very minimal , no direct tenderness or rebound tensile guarding MUSCULOSKELETAL: No joint swelling or deformity. EXTREMITIES: No cyanosis, clubbing and there is increased pitting edema in lower extremities bilaterally. NEUROLOGICAL: Gross neurological examination did not reveal any focal deficits. The patient has developmental delay SKIN:Examination of the skin revealed no evidence of significant rashes, suspicious appearing nevi or other concerning lesions. Results - Laboratory Findings CBC and BMP: 04/01/19 06:05 04/01/19 06:05 PT/INR, D-dimer PT 15.1 sec (9.0-12.0) H 04/01/19 11:08 INR 1.5 (<1.2) H 04/01/19 11:08 Abnormal lab findings: Abnormal Labs 03/31/19 03/31/19 03/31/19 16:27 16:57 20:47 MCHC PT INR BUN Creatinine Glucose POC Glucose (mg/dL) 116 H 185 H Calcium Urine Protein 2+ H Urine Mucus Rare H 04/01/19 04/01/19 04/01/19 06:05 06:05 06:27 MCHC 30.9 L PT INR BUN 39 H Creatinine 1.51 H Glucose 61 L POC Glucose (mg/dL) 73 L Calcium 7.9 L Urine Protein Urine Mucus 04/01/19 04/01/19 04/01/19 11:08 11:49 16:39 MCHC PT 15.1 H INR 1.5 H BUN Creatinine Glucose POC Glucose (mg/dL) 202 H 115 H Calcium Urine Protein Urine Mucus - Diagnostic Findings Chest x-ray: image reviewed Assessment and Plan Plan: 1 acute decompensated systolic heart failure in a patient with known history of congestion heart failure with an ejection fraction of less than 30% consistent with nonischemic cardiomyopathy 2 exertional dyspnea, orthopnea and lower eczematous edema secondary to above 3 history of moderate degree of mitral regurgitation and tricuspid regurgitation 4 acute kidney injury probably due to cardiorenal factors 5 chronic atrial fibrillation with rapid ventricular response and currently the patient's rate is under better control 6 supratherapeutic INR, treated with vitamin K and the patient's INR is down to 1.5 7 hyperlipidemia 8 hypothyroidism 9 mild troponin leak 10 developmental delay 11 history of bowel resection and the patient is a colostomy in place PLAN Continue IV Lasix 40 mg every 12 hours. Repeat the echocardiogram. Keep the Coumadin on hold and look for alternative and to coagulation such as Eliquis especially with her labile PT/INR levels. Continue metoprolol. Salt restriction. We'll continue to follow.
[2019-04-01 21:04] LABS: Glucose,Whole Blood 272 mg/dL (75-99)
[2019-04-01] MEDS: ATORVASTATIN 10 MG TAB PO SCH (21:17)
[2019-04-02] MEDS: FUROSEMIDE 10 MG/ML 4 ML VIAL IV SCH ×2 (05:47→17:29)
[2019-04-02 06:31] LABS: Glucose,Whole Blood 108 mg/dL (75-99)
[2019-04-02] MEDS: LEVOTHYROXINE 25 MCG TAB PO SCH (06:58)
[2019-04-02 07:19] LABS: INR 1.2 (<1.2); Prothrombin Time 12.5 sec (9.0-12.0)
[2019-04-02 07:27] LABS: Calcium 7.9 mg/dL (8.4-10.2); Potassium 3.9 mmol/L (3.5-5.1)
[2019-04-02] MEDS: INSULIN ASPART (NovoLOG) 100 UNIT/ML VIAL SQ SCH ×4 (08:04→22:57)
[2019-04-02] MEDS: METOPROLOL TARTRATE 25 MG TAB PO SCH ×2 (09:01→22:56)
[2019-04-02] MEDS: CALCIUM ACETATE 667 MG CAP PO SCH (09:01)
[2019-04-02] MEDS: CALCIUM CARB-VIT D 500MG-200UN 1 EACH TAB PO SCH (09:01)
[2019-04-02] MEDS: MAGNESIUM OXIDE 400 MG TAB PO SCH ×2 (09:01→22:57)
[2019-04-02] MEDS: DOXYCYCLINE 100 MG CAP PO SCH ×2 (09:02→22:56)
[2019-04-02] MEDS: BALSALAZIDE DISODIUM 750 MG CAPSULE PO SCH ×3 (09:02→22:56)
--- NOTE | 2019-04-02 11:38 | P.PN ---
Subjective 72-year-old admitted with the can start failure exacerbation does have chronic A. fib presently rate controlled. Patient is feeling better still has pulmonary edema can you with IV Lasix. Serum creatinine improved marginally. Patient has chronic systolic dysfunction ejection fraction of 30% nonischemic cardiomyopathy.patient is still short of breath. But improvingpatient's BNP significantly elevated. 04/02/2019 An patient's INR is getting better do not have any basic metabolic profile available at this time patient will be started on Eliquis as patient has nonvalvular A. fib atrial fibrillation Coumadin will be disc in your patient will be started on low-dose of Eliquis . He still has papilledema will can you with IV Lasix for today Constitutional: Denied any fatigue denied any fever. Cardio vascular: denied any chest pain, palpitations Gastrointestinal denied any nausea vomiting Pulmonary: Denied any shortness of breath cough Neurologic denied any new focal deficits All inpatient medications were reviewed and appropriate changes in these medications as dictated in the interval history and assessment and plan. Objective - Vital Signs Vital signs: Vital Signs Temp 97.6 F 04/02/19 08:30 Pulse 132 H 04/02/19 08:30 Resp 18 04/02/19 08:30 BP 104/63 04/02/19 08:30 Pulse Ox 100 04/02/19 09:07 Intake & Output 04/01/19 04/02/19 04/02/19 18:59 06:59 18:59 Intake Total 240 240 Output Total 550 2500 600 Balance -310 -2500 -360 Weight 64.5 kg 60.5 kg Intake: Oral 240 240 Output: Urine 400 2350 600 Stool 150 150 Other: Voiding Method Bedside Commode Bedside Commode # Voids 1 # Bowel Movements 1 1 - Exam PHYSICAL EXAMINATION: GENERAL: The patient is alert and oriented x3, not in any acute distress. Well developed, well nourished. HEENT: Pupils are round and equally reacting to light. EOMI. No scleral icterus. No conjunctival pallor. Normocephalic, atraumatic. No pharyngeal erythema. No thyromegaly. CARDIOVASCULAR: S1 and S2 present. No murmurs, rubs, or gallops. regularly irregular rhythm PULMONARY: Chest is clear to auscultation, no wheezing or crackles. ABDOMEN: Soft, has a colostomy in the left side there is definitely redness around the colostomy site area although very minimal unsure whether that is actually an infection or just inflammation expected. MUSCULOSKELETAL: No joint swelling or deformity. EXTREMITIES: No cyanosis, clubbing, still has a bilateral pedal edema NEUROLOGICAL: Gross neurological examination did not reveal any focal deficits. SKIN: No rashes. - Labs CBC & Chem 7: 04/01/19 06:05 04/02/19 06:25 Labs: Abnormal Lab Results - Last 24 Hours (Table) 04/01/19 04/01/19 04/01/19 Range/Units 11:08 11:49 16:39 PT 15.1 H (9.0-12.0) sec INR 1.5 H (<1.2) BUN (7-17) mg/dL Creatinine (0.52-1.04) mg/dL Glucose (74-99) mg/dL POC Glucose (mg/dL) 202 H 115 H (75-99) mg/dL Calcium (8.4-10.2) mg/dL 04/01/19 04/02/19 04/02/19 Range/Units 21:00 06:25 06:25 PT 12.5 H (9.0-12.0) sec INR 1.2 H (<1.2) BUN 39 H (7-17) mg/dL Creatinine 1.44 H (0.52-1.04) mg/dL Glucose 108 H (74-99) mg/dL POC Glucose (mg/dL) 272 H (75-99) mg/dL Calcium 7.9 L (8.4-10.2) mg/dL 04/02/19 Range/Units 06:30 PT (9.0-12.0) sec INR (<1.2) BUN (7-17) mg/dL Creatinine (0.52-1.04) mg/dL Glucose (74-99) mg/dL POC Glucose (mg/dL) 108 H (75-99) mg/dL Calcium (8.4-10.2) mg/dL Assessment and Plan Plan: - congestive heart failure chronic systolic dysfunction with acute exacerbation, improving with IV Lasix - hypervolemic hyponatremia:with Lasix -[id number] heart failure chronic systolic dysfunction with acute exacerbation patient does have moderate MR is as well as TR -Atrial fibrillation chronic A. fib presently rate controlled patient will be resumed on metoprolol. She will be started on Eliquis -Renal failure unsure whether it's acute or chronic may be related to prerenal azotemia from congestive heart failure -Type 2 diabetes mellitus -Hyperlipidemia -Hypothyroidism - mild elevation of troponin probably related to A. fib and acute renal failure. - possible cellulitis of the colostomy area will use doxycycline I do not believe patient will require higher antibiotics -Probably can on admission which resolved and patient will be started on Eliquis
--- NOTE | 2019-04-02 11:38 | P.PN ---
Subjective Progress Note Date: 04/02/19 This is a pleasant 73-year-old female who follows with Dr. Steel in [place] office, she has history of chronic persistent atrial fibrillation, diabetes, hypertension, hyperlipidemia, hypothyroidism, nonischemic cardiomyopathy, patient underwent a cardiac catheterization in May 2018 ic h revealed normal coronary arteries, nonischemic cardiomyopathy and normal left ventricular end-diastolic pressure, she also had a CHAITANYA performed at that time which showed severe cardiomyopathy with an EF of 30%, severe left atrial enlargement, intact interatrial septum without evidence of shunt, normal left atrial appendage with no evidence of thrombus, trileaflet aortic valve without stenosis, moderate MR, moderate TR with no evidence of any pericardial effusion. Patient presented to [facility] with symptoms of shortness of breath, she underwent a CT of the chest abdomen and pelvis which revealed a small right-sided pleural effusion several 5-6 mm nonspecific soft tissue nodules in the right lung field, limited evaluation due to respiratory motion especially in the upper abdomen, pancreas was nondiagnostic, he. According to the patient, approximately 3 weeks ago she was dealing with the stomach flu at home. Most recently she states that she could hardly breathe. She was still having some mild abdominal discomfort. Blood pressure on arrival there 117/100, heart rate 140, respirations 20, afebrile. Sodium 132, potassium 4.6, chloride 98, CO2 26, white blood cell count 6.8, hemoglobin 14, platelet count 302. CK 142, AST 90, ALT 62, total bili 0.6, troponin 0.06. Pro time 41 with an INR of 8.6. EKG performed [facility] showed atrial fibrillation with a rapid ventricular response. Chest x-ray on arrival here did not reveal any acute process. Blood pressure 140/70 with a heart rate in the 70s, 99% on 2 L of oxygen. Weight blood cell count 5.5, hemoglobin 12.2, platelet count 270. Sodium 138, potassium 4.4, BUN 39 and creatinine 1.5. Troponin 0.033, 0.031. BNP level 19,500.. TSH 2.4. The patient was initiated on IV Lasix, she's been diuresing well through the night last night and overall she does state that her breathing is better than on presentation to [facility] yesterday, however she does not feel back to her normal at this point. 04/02/2019 Patient was seen and examined this morning, she did diurese well through the night and her weight is down significantly today. Creatinine down to 1.4 today and she continues to be on IV Lasix. Echo is pending. We will start the patient today on Eliquis 2-1/2 mg one tablet by mouth twice a day continue current dose of IV Lasix monitoring intake and output along with daily weights and daily lytes BUN and creatinine. Objective - Vital Signs Vital signs: Vital Signs Temp 97.6 F 04/02/19 08:30 Pulse 132 H 04/02/19 08:30 Resp 18 04/02/19 08:30 BP 104/63 04/02/19 08:30 Pulse Ox 100 04/02/19 09:07 Intake & Output 04/01/19 04/02/19 04/02/19 18:59 06:59 18:59 Intake Total 240 240 Output Total 550 2500 600 Balance -310 -2500 -360 Weight 64.5 kg 60.5 kg Intake: Oral 240 240 Output: Urine 400 2350 600 Stool 150 150 Other: Voiding Method Bedside Commode Bedside Commode # Voids 1 # Bowel Movements 1 1 - Exam PHYSICAL EXAMINATION: GENERAL: 83-year-old female in no acute distress at the time of my examination HEENT: Head is atraumatic, normocephalic. Pupils equal, round. Sclera anicter ic. Conjunctiva are clear. Mucous membranes of the mouth are moist. Neck is supple. There is elevated jugular venous pressure. No carotid bruit is heard. HEART EXAMINATION: Heart S1 and S2 irregularly irregular a systolic murmur is heard CHEST EXAMINATION: Lungs reveal diminished air entry to bilateral bases. ABDOMEN: Soft, patient has a colostomy in the left side with evidence of signif icant redness EXTREMITIES:[ 2+ peripheral pulses with 2+ evidence of peripheral edema evidence of ulcerations and erythema bilaterally to the lower extremities NEUROLOGIC patient is awake, alert and oriented 3 . - Labs CBC & Chem 7: 04/01/19 06:05 04/02/19 06:25 Labs: Abnormal Lab Results - Last 24 Hours (Table) 04/01/19 04/01/19 04/01/19 Range/Units 11:08 11:49 16:39 PT 15.1 H (9.0-12.0) sec INR 1.5 H (<1.2) BUN (7-17) mg/dL Creatinine (0.52-1.04) mg/dL Glucose (74-99) mg/dL POC Glucose (mg/dL) 202 H 115 H (75-99) mg/dL Calcium (8.4-10.2) mg/dL 04/01/19 04/02/19 04/02/19 Range/Units 21:00 06:25 06:25 PT 12.5 H (9.0-12.0) sec INR 1.2 H (<1.2) BUN 39 H (7-17) mg/dL Creatinine 1.44 H (0.52-1.04) mg/dL Glucose 108 H (74-99) mg/dL POC Glucose (mg/dL) 272 H (75-99) mg/dL Calcium 7.9 L (8.4-10.2) mg/dL 04/02/19 Range/Units 06:30 PT (9.0-12.0) sec INR (<1.2) BUN (7-17) mg/dL Creatinine (0.52-1.04) mg/dL Glucose (74-99) mg/dL POC Glucose (mg/dL) 108 H (75-99) mg/dL Calcium (8.4-10.2) mg/dL Assessment and Plan Plan: Assessment and plan #1 systolic congestive heart failure acute on chronic #2 chronic persistent atrial fibrillation with supratherapeutic INR #3 acute on chronic renal failure #4 hyperlipidemia #5 hypothyroidism #6 non-MS troponin elevation likely secondary to A. fib with RVR #7 possible abdominal cellulitis Plan We will continue current dose of IV Lasix, start the patient on Eliquis 2-1/2 mg one tablet by mouth twice a day from today. Review echocardiogram with Doppler study. DNP note has been reviewed, I agree with a documented findings and plan of care. Patient was seen and examined.
[2019-04-02 11:57] LABS: Glucose,Whole Blood 178 mg/dL (75-99)
--- NOTE | 2019-04-02 12:10 | ECHOF ---
Referral Reason:chf MEASUREMENTS -------- HEIGHT: 160.0 cm WEIGHT: 64.4 kg BP: 140/75 IVSd: 0.8 cm (0.6 - 1.1) LVIDd: 5.4 cm (3.9 - 5.3) LVPWd: 1.1 cm (0.6 - 1.1) IVSs: 1.2 cm LVIDs: 4.8 cm LVPWs: 1.5 cm LA Diam: 5.0 cm (2.7 - 3.8) RVIDd: 2.1 cm (< 3.3) LAESV Index (A-L): 45.20 ml/m Ao Diam: 3.2 cm (2.0 - 3.7) LA Diam: 4.7 cm (2.7 - 3.8) AV Cusp: 1.6 cm (1.5 - 2.6) EPSS: 1.4 cm MV E Alonzo: 0.55 m/s MV DecT: 106 ms MV A Alonzo: 0.19 m/s MV E/A Ratio: 2.87 RAP: 5.00 mmHg RVSP: 45.16 mmHg MV EF SLOPE: 103.62 mm/s (70 - 150) MV EXCURSION: 21.87 mm (> 18.000) FINDINGS -------- Atrial fibrillation. This was a techncally difficult study with suboptimal views, , Lumason utilized for enhancement of im ages. The left ventricular size is normal. There is severe global hypokinesis of LV . Overall left vent ricular systolic function is severely impaired with, an EF between 20 - 25 %. Left ventricular fill img pressure cannot be estimated due to Atrial fibrillation. The right ventricle is normal in size. The left atrium is markedly dilated. LA is severely dilated >40 ml/m2 The right atrial size is normal. 5.0mg OF Lumason UTLIZED: 2 OR MORE WALL SEGMENTS NOT VISUALIZED. There is mild aortic valve sclerosis. There is no evidence of aortic regurgitation. Mild mitral annular calcification present. Mild mitral regurgitation is present. Mild tricuspid regurgitation present. There is mild pulmonary hypertension. The right ventricular systolic pressure, as measured by Doppler, is 45.16mmHg. There is no pulmonic regurgitation present. The aortic root size is normal. There is no pericardial effusion. CONCLUSIONS -------- 1. Atrial fibrillation. 2. This was a techncally difficult study with suboptimal views, , Lumason utilized for enhancement of images. 3. The left ventricular size is normal. 4. There is severe global hypokinesis of LV . 5. Overall left ventricular systolic function is severely impaired with, an EF between 20 - 25 %. 6. Left ventricular fillimg pressure cannot be estimated due to Atrial fibrillation. 7. The right ventricle is normal in size. 8. The left atrium is markedly dilated. 9. LA is severely dilated >40 ml/m2 10. The right atrial size is normal. 11. 5.0mg OF Lumason UTLIZED: 2 OR MORE WALL SEGMENTS NOT VISUALIZED. 12. There is mild aortic valve sclerosis. 13. Mild mitral annular calcification present. 14. Mild mitral regurgitation is present. 15. Mild tricuspid regurgitation present. 16. There is mild pulmonary hypertension. 17. The right ventricular systolic pressure, as measured by Doppler, is 45.16mmHg. 18. There is no pulmonic regurgitation present. 19. The aortic root size is normal. 20. There is no pericardial effusion. LOAN SERVICING SPECIALIST: Nikki Baez RDCS
[2019-04-02] MEDS: APIXABAN 2.5 MG TABLET PO SCH ×2 (12:43→22:57)
--- NOTE | 2019-04-02 15:42 | P.PN ---
Subjective Progress Note Date: 04/02/19 Principal diagnosis: Acute exacerbation of chronic systolic congestive heart failure. 73-year-old female patient who came into the hospital because of worsening shortness of breath, exertional and sent and the patient was having orthopnea and lower extremity edema that was progressively getting worse. The patient has undergone a previous catheterization back in May 2019 and the patient was found to have normal coronaries. The patient has nonischemic cardiomyopathy and it previous CHAITANYA had shown severe cardiomyopathy with an ejection fraction of 30% and severe left atrial enlargement. The patient was also found to have 5 aortic valve without stenosis, moderate mitral regurgitation, moderate tricuspid regurgitation without evidence of any pericardial effusion. The patient has also history of chronic atrial fibrillation, hypertension and hyperlipidemia and diabetes mellitus and hypothyroidism. The patient initially went to [facility] with a CAT scan of the chest abdomen and pelvis was done and showed a small right-sided pleural effusion in addition to that the rest of the abdominal findings were essentially within normal limits. The patient subsequently got transferred to our hospital. Her INR was toxic at [facility] and the patient was given 10 of vitamin K and currently have PT/INR is subtherapeutic. Also, she was in atrial fibrillation with rapid ventricular response and the rate is controlled for now. She is currently on 2 L of oxygen by nasal cannula and her pulse ox is 99%. BNP level was 19,500. Troponins were 0.032 r espectively. The patient was started on IV Lasix pH is already feeling better. She is less short of breath compared to yesterday. No angina. No palpitation. No syncope. No pleurisy. No aspiration. She lives in a [place] [facility]. She is on long-term anticoagulation with warfarin. Her thyroid function test is no within normal limits. The patient is seen today 04/02/2019 in follow-up on the selective care unit. She is currently sitting up in a chair at the bedside. Awake and alert in no acute distress. Breathing easier today as compared to yesterday. Maintaining good O2 saturations in the 90s on room air. She's been afebrile. Hemodynamically stable. Sodium 1:30. Potassium 3.9. Creatinine 1.44. She remains on Lasix 40 mg IV push every 12 hours. Remains in a negative balance. Down 4 kg. Less peripheral edema. Objective - Vital Signs Vital signs: Vital Signs Temp 97.8 F 04/02/19 12:00 Pulse 89 04/02/19 12:00 Resp 18 04/02/19 12:00 BP 114/76 04/02/19 12:00 Pulse Ox 96 04/02/19 12:00 Intake & Output 04/01/19 04/02/19 04/02/19 18:59 06:59 18:59 Intake Total 240 480 Output Total 550 2500 600 Balance -310 -2500 -120 Weight 64.5 kg 60.5 kg Intake: Oral 240 480 Output: Urine 400 2350 600 Stool 150 150 Other: Voiding Method Bedside Commode Bedside Commode # Voids 1 # Bowel Movements 1 1 - Exam GENERAL: The patient is alert and oriented, not in any acute distress. Well developed, well nourished. On room air. Head exam was generally normal. There was no scleral icterus or corneal arcus. Mucous membranes were moist. Neck was supple and without jugular venous distension, thyromegaly, or carotid bruits. Carotids were easily palpable bilaterally. There was no adenopathy. CARDIOVASCULAR: The patient has an irregular S1 and S2 present, and this is consistent with atrial fibrillation. No murmurs, rubs, or gallops. regularly irregular rhythm PULMONARY: Faint crackles in the bilateral posterior bases. Diminished. ABDOMEN: Soft, has a colostomy in the left side there is definitely redness around the colostomy site area although very minimal , no direct tenderness or rebound tensile guarding MUSCULOSKELETAL: No joint swelling or deformity. EXTREMITIES: No cyanosis, clubbing and there is increased pitting edema in lower extremities bilaterally. NEUROLOGICAL: Gross neurological examination did not reveal any focal deficits. The patient has developmental delay SKIN:Examination of the skin revealed no evidence of significant rashes, suspicious appearing nevi or other concerning lesions. - Labs CBC & Chem 7: 04/01/19 06:05 04/02/19 06:25 Labs: Abnormal Lab Results - Last 24 Hours (Table) 04/01/19 04/01/19 04/02/19 Range/Units 16:39 21:00 06:25 PT (9.0-12.0) sec INR (<1.2) BUN 39 H (7-17) mg/dL Creatinine 1.44 H (0.52-1.04) mg/dL Glucose 108 H (74-99) mg/dL POC Glucose (mg/dL) 115 H 272 H (75-99) mg/dL Calcium 7.9 L (8.4-10.2) mg/dL 04/02/19 04/02/19 04/02/19 Range/Units 06:25 06:30 11:54 PT 12.5 H (9.0-12.0) sec INR 1.2 H (<1.2) BUN (7-17) mg/dL Creatinine (0.52-1.04) mg/dL Glucose (74-99) mg/dL POC Glucose (mg/dL) 108 H 178 H (75-99) mg/dL Calcium (8.4-10.2) mg/dL Assessment and Plan Assessment: Impression: 1 acute decompensated systolic heart failure in a patient with known history of congestion heart failure with an ejection fraction of less than 30% consistent with nonischemic cardiomyopathy. Most recent echocardiogram continues to revealed severely impaired left ventricular systolic function with ejection frac tion 20-25%. 2 exertional dyspnea, orthopnea and lower eczematous edema secondary to above 3 history of moderate degree of mitral regurgitation and tricuspid regurgitation 4 acute kidney injury probably due to cardiorenal factors 5 chronic atrial fibrillation with rapid ventricular response and currently the patient's rate is under better control. Anticoagulated with Eliquis 6 hyperlipidemia 7 hypothyroidism 8 mild troponin leak 9 developmental delay 10 history of bowel resection and the patient is a colostomy in place Plan: The patient was seen and evaluated by Dr. Reaves. She is improved today as compared to yesterday. Continue diuretics. Anticoagulated with Eliquis. Incre ase her activity as tolerated. We'll continue to follow and make further recommendations based on her clinical status. I, the cosigning physician, performed a history & physical examination of the patient. Lungs sounds with faint bibasilar crackles. Maintaining good O2 saturations in the 90s on room air. I discussed the assessment and plan of care with my nurse practitioner, Lisha Strickland. I attest to the above note as dictated by her.
[2019-04-02 17:00] LABS: Glucose,Whole Blood 200 mg/dL (75-99)
[2019-04-02 21:52] LABS: Glucose,Whole Blood 141 mg/dL (75-99)
[2019-04-02] MEDS: ATORVASTATIN 10 MG TAB PO SCH (22:56)
[2019-04-03] MEDS: FUROSEMIDE 10 MG/ML 4 ML VIAL IV SCH (06:07)
[2019-04-03] MEDS: LEVOTHYROXINE 25 MCG TAB PO SCH (06:08)
[2019-04-03 06:50] LABS: Glucose,Whole Blood 118 mg/dL (75-99)
[2019-04-03] MEDS: INSULIN ASPART (NovoLOG) 100 UNIT/ML VIAL SQ SCH ×2 (07:02→12:26)
[2019-04-03 07:45] LABS: HCT 42.9 % (34.0-46.0); HGB 13.9 gm/dL (11.4-16.0); Hypochromasia Slight; MCH 30.1 pg (25.0-35.0); MCHC 32.3 g/dL (31.0-37.0); MCV 93.3 fL (80.0-100.0); Platelet Count 332 k/uL (150-450); RDW 14.3 % (11.5-15.5); WBC 7.2 k/uL (3.8-10.6)
[2019-04-03 08:07] LABS: Calcium 8.3 mg/dL (8.4-10.2); Potassium 4.3 mmol/L (3.5-5.1)
[2019-04-03] MEDS: APIXABAN 2.5 MG TABLET PO SCH (08:20)
[2019-04-03] MEDS: DOXYCYCLINE 100 MG CAP PO SCH (08:20)
[2019-04-03] MEDS: MAGNESIUM OXIDE 400 MG TAB PO SCH (08:20)
[2019-04-03] MEDS: CALCIUM ACETATE 667 MG CAP PO SCH (08:20)
[2019-04-03] MEDS: BALSALAZIDE DISODIUM 750 MG CAPSULE PO SCH (08:20)
[2019-04-03] MEDS: METOPROLOL TARTRATE 25 MG TAB PO SCH (08:20)
[2019-04-03] MEDS: CALCIUM CARB-VIT D 500MG-200UN 1 EACH TAB PO SCH (08:21)
[2019-04-03 11:07] VITALS: BP 119/77; PULSE 93; RESP 18; TEMP 97.8
[2019-04-03 11:51] LABS: Glucose,Whole Blood 298 mg/dL (75-99)
--- NOTE | 2019-04-03 13:13 | P.PN ---
Subjective Progress Note Date: 04/03/19 Principal diagnosis: CHF secondary to systolic dysfunction this is a pleasant 73-year-old female patient with a past medical history significant for nonischemic cardiomyopathy, chronic persistent atrial fibrillation, as well as multiple comorbid conditions, was transferred [facility] with increasing shortness of breath and she was diagnosed with acute exacerbation of congestive heart failure. The echocardiogram revealed cardiomyopathy was EF around 20%. On follow-up with the patient today, she seems to be feeling better in terms of shortness of breath no chest pain or chest discomfort. She was started on Lasix by mouth. She is going to be discharged later on today. Objective - Vital Signs Vital signs: Vital Signs Temp 97.8 F 04/03/19 11:03 Pulse 93 04/03/19 11:03 Resp 18 04/03/19 11:03 BP 119/77 04/03/19 11:03 Pulse Ox 98 04/03/19 11:03 Intake & Output 04/02/19 04/03/19 04/03/19 18:59 06:59 18:59 Intake Total 960 120 240 Output Total 600 400 Balance 360 -280 240 Weight 60.4 kg Intake: Oral 960 120 240 Output: Urine 600 400 Other: Voiding Method Bedside Commode Bedside Commode Bedside Commode # Voids 1 1 1 # Bowel Movements 1 1 - Constitutional General appearance: Present: no acute distress - Respiratory Respiratory: bilateral: diminished - Cardiovascular Rhythm: irregularly irregular Heart sounds: normal: S1, S2 - Labs CBC & Chem 7: 04/03/19 07:17 04/03/19 07:17 Labs: Abnormal Lab Results - Last 24 Hours (Table) 04/02/19 04/02/19 04/03/19 Range/Units 16:58 21:51 06:49 Carbon Dioxide (22-30) mmol/L BUN (7-17) mg/dL Creatinine (0.52-1.04) mg/dL Glucose (74-99) mg/dL POC Glucose (mg/dL) 200 H 141 H 118 H (75-99) mg/dL Calcium (8.4-10.2) mg/dL 04/03/19 04/03/19 Range/Units 07:17 11:50 Carbon Dioxide 32 H (22-30) mmol/L BUN 42 H (7-17) mg/dL Creatinine 1.53 H (0.52-1.04) mg/dL Glucose 134 H (74-99) mg/dL POC Glucose (mg/dL) 298 H (75-99) mg/dL Calcium 8.3 L (8.4-10.2) mg/dL Assessment and Plan Assessment: Assessment #1 congestive heart failure exacerbation secondary to systolic dysfunction #2 chronic persistent atrial fibrillation #3 multiple comorbid conditions Plan #1 continue the current medical regimen #2 the patient can be discharged home
--- NOTE | 2019-04-03 14:21 | P.DS ---
Providers Date of admission: 03/31/19 15:41 Attending physician: Yves Hurley MD Consults: 03/31/19 17:01 Consult Physician Routine Consulting Provider: David Hu Consult Reason/Comments: a.fib Do you want consulting provider notified?: Yes 03/31/19 17:38 Consult Physician Routine Consulting Provider: Laila Reaves Consult Reason/Comments: pulmonary nodules Do you want consulting provider notified?: Yes Primary care physician: Yves Hurley MD Hospital Course: 72-year-old admitted with the can start failure exacerbation does have chronic A. fib presently rate controlled. Patient is feeling better still has pulmonary edema can you with IV Lasix. Serum creatinine improved marginally. Patient has chronic systolic dysfunction ejection fraction of 30% nonischemic cardiomyopathy.patient is still short of breath. But improvingpatient's BNP significantly elevated. 04/02/2019 An patient's INR is getting better do not have any basic metabolic profile available at this time patient will be started on Eliquis as patient has nonvalvular A. fib atrial fibrillation Coumadin will be disc in your patient will be started on low-dose of Eliquis . He still has pulmonary edema will can you with IV Lasix for today 04/03/2019 Patient is fairly euvolemic at this time and patient was started on Eliquis for nonvalvular A. fib and the patient heart rate is fairly well controlled. Patient recent ejection fraction is 20-25% patient is high risk for readmission. Patient will be discharged AFC home with home care. PHYSICAL EXAMINATION: GENERAL: The patient is alert and oriented x3, not in any acute distress. Well developed, well nourished. HEENT: Pupils are round and equally reacting to light. EOMI. No scleral icterus. No conjunctival pallor. Normocephalic, atraumatic. No pharyngeal erythema. No thyromegaly. CARDIOVASCULAR: S1 and S2 present. No murmurs, rubs, or gallops. regularly irregular rhythm PULMONARY: Chest is clear to auscultation, no wheezing or crackles. ABDOMEN: Soft, has a colostomy in the left side there is definitely redness around the colostomy site area although very minimal unsure whether that is actually an infection or just inflammation expected. MUSCULOSKELETAL: No joint swelling or deformity. EXTREMITIES: No cyanosis, clubbing, still has a bilateral pedal edema NEUROLOGICAL: Gross neurological examination did not reveal any focal deficits. SKIN: No rashes Assessment and Plan Plan: - congestive heart failure chronic systolic dysfunction with acute exacerbation. - hypervolemic hyponatremia: Improved with Lasix -I5waemhval heart failure chronic systolic dysfunction with acute exacerbation patient does have moderate MR is as well as TR -Atrial fibrillation chronic A. fib presently rate controlled on Eliquis -Renal failure unsure whether it's acute or chronic may be related to prerenal azotemia from congestive heart failure -Type 2 diabetes mellitus -Hyperlipidemia -Hypothyroidism - mild elevation of troponin probably related to A. fib and acute renal failure. - possible cellulitis of the colostomy area will use doxycycline Plan - Discharge Summary Discharge Rx Participant: No New Discharge Prescriptions: New Apixaban [Eliquis] 2.5 mg PO BID #60 tablet Furosemide [Lasix] 40 mg PO BID@0900,1600 #60 tab Doxycycline [Vibramycin] 100 mg PO BID #14 cap Lisinopril [Zestril] 5 mg PO DAILY #30 tablet INSULIN LISPRO (humaLOG) [humaLOG] 1 injection SQ DIRECTED #10 ml Continue Multivitamins, Thera [Multivitamin (formulary)] 1 tab PO DAILY Atorvastatin [Lipitor] 10 mg PO HS Calcium Carbonate/Vitamin D3 [Calcium 600-Vit D3 400 Tablet] 1 tab PO DAILY Magnesium Oxide [Mag-Ox] 400 mg PO BID Levothyroxine Sodium [Synthroid] 25 mcg PO DAILY Calcium Acetate [PhosLo] 667 mg PO DAILY Loratadine 10 mg PO DAILY Mesalamine [Delzicol] 400 mg PO BID Metoprolol Tartrate [Lopressor] 25 mg PO BID Discontinued Lisinopril [Zestril] 10 mg PO DAILY metFORMIN HCL 1,000 mg PO BID Insulin Glargine,Hum.rec.anlog [Chani Sanchez U-100] See Protocol SQ DAILY Furosemide [Lasix] 20 mg PO DAILY Warfarin Sodium [Coumadin] 6 mg PO DIRECTED Discharge Medication List Atorvastatin [Lipitor] 10 mg PO HS 06/03/18 [History] Calcium Acetate [PhosLo] 667 mg PO DAILY 06/03/18 [History] Calcium Carbonate/Vitamin D3 [Calcium 600-Vit D3 400 Tablet] 1 tab PO DAILY 06/03/18 [History] Levothyroxine Sodium [Synthroid] 25 mcg PO DAILY 06/03/18 [History] Magnesium Oxide [Mag-Ox] 400 mg PO BID 06/03/18 [History] Multivitamins, Thera [Multivitamin (formulary)] 1 tab PO DAILY 06/03/18 [History] Loratadine 10 mg PO DAILY 03/31/19 [History] Mesalamine [Delzicol] 400 mg PO BID 03/31/19 [History] Metoprolol Tartrate [Lopressor] 25 mg PO BID 03/31/19 [History] Apixaban [Eliquis] 2.5 mg PO BID #60 tablet 04/03/19 [Rx] Doxycycline [Vibramycin] 100 mg PO BID #14 cap 04/03/19 [Rx] Furosemide [Lasix] 40 mg PO BID@0900,1600 #60 tab 04/03/19 [Rx] INSULIN LISPRO (humaLOG) [humaLOG] 1 injection SQ DIRECTED #10 ml 04/03/19 [Rx] Lisinopril [Zestril] 5 mg PO DAILY #30 tablet 04/03/19 [Rx] Follow up Appointment(s)/Referral(s): Primary Care, [Other] - 1 Week (Please call and schedule an appointment with a primary care doctor) David Hu MD [STAFF PHYSICIAN] - 1 Week ([facility] [phone] Message left on answering machine for Melinda. Office should call you back with an appointment time) Patient Instructions/Handouts: A-fib (Atrial Fibrillation) (DC), Safe Use of Anticoagulants (DC) Activity/Diet/Wound Care/Special Instructions: Call caregiver Jamel cari marin up [phone] Pt resides at a longterm/AFC Discharge Disposition: HOME WITH HOME HEALTH SERVICES
--- NOTE | 2019-04-03 15:22 | P.PN ---
Subjective Progress Note Date: 04/03/19 Principal diagnosis: Acute exacerbation of chronic systolic congestive heart failure. 73-year-old female patient who came into the hospital because of worsening shortness of breath, exertional and sent and the patient was having orthopnea and lower extremity edema that was progressively getting worse. The patient has undergone a previous catheterization back in May 2019 and the patient was found to have normal coronaries. The patient has nonischemic cardiomyopathy and it previous CHAITANYA had shown severe cardiomyopathy with an ejection fraction of 30% and severe left atrial enlargement. The patient was also found to have 5 aortic valve without stenosis, moderate mitral regurgitation, moderate tricuspid regurgitation without evidence of any pericardial effusion. The patient has also history of chronic atrial fibrillation, hypertension and hyperlipidemia and diabetes mellitus and hypothyroidism. The patient initially went to [facility] with a CAT scan of the chest abdomen and pelvis was done and showed a small right-sided pleural effusion in addition to that the rest of the abdominal findings were essentially within normal limits. The patient subsequently got transferred to our hospital. Her INR was toxic at [facility] and the patient was given 10 of vitamin K and currently have PT/INR is subtherapeutic. Also, she was in atrial fibrillation with rapid ventricular response and the rate is controlled for now. She is currently on 2 L of oxygen by nasal cannula and her pulse ox is 99%. BNP level was 19,500. Troponins were 0.032 r espectively. The patient was started on IV Lasix pH is already feeling better. She is less short of breath compared to yesterday. No angina. No palpitation. No syncope. No pleurisy. No aspiration. She lives in a foster usp. She is on long-term anticoagulation with warfarin. Her thyroid function test is no within normal limits. The patient is seen today 04/02/2019 in follow-up on the selective care unit. She is currently sitting up in a chair at the bedside. Awake and alert in no acute distress. Breathing easier today as compared to yesterday. Maintaining good O2 saturations in the 90s on room air. She's been afebrile. Hemodynamically stable. Sodium 1:30. Potassium 3.9. Creatinine 1.44. She remains on Lasix 40 mg IV push every 12 hours. Remains in a negative balance. Down 4 kg. Less peripheral edema. The patient is seen today 04/03/2018 in follow-up on the selective care unit. She's been up ambulating in the room with assistance. Using the bedside commod e. No shortness of breath, cough or congestion. No chills or night sweats. He is maintaining good O2 saturations in the high 90s on 2 L/m per nasal cannula. She's been afebrile. Hemodynamically stable. White count 7.2. Hemoglobin 13.9. Sodium 137. Potassium 4.3. Creatinine 1.53. Objective - Vital Signs Vital signs: Vital Signs Temp 97.8 F 04/03/19 11:03 Pulse 93 04/03/19 11:03 Resp 18 04/03/19 11:03 BP 119/77 04/03/19 11:03 Pulse Ox 98 04/03/19 11:03 Intake & Output 04/02/19 04/03/19 04/03/19 18:59 06:59 18:59 Intake Total 960 120 240 Output Total 600 400 Balance 360 -280 240 Weight 60.4 kg Intake: Oral 960 120 240 Output: Urine 600 400 Other: Voiding Method Bedside Commode Bedside Commode Bedside Commode # Voids 1 1 1 # Bowel Movements 1 1 - Exam GENERAL: The patient is alert and oriented, pleasant 73-year-old female not in any acute distress. Well developed, well nourished. Head exam was generally normal. There was no scleral icterus or corneal arcus. Mucous membranes were moist. Neck was supple and without jugular venous distension, thyromegaly, or carotid bruits. Carotids were easily palpable bilaterally. There was no adenopathy. CARDIOVASCULAR: The patient has an irregular S1 and S2 present, and this is consistent with atrial fibrillation. No murmurs, rubs, or gallops. regularly irr egular rhythm PULMONARY: Faint crackles in the bilateral posterior bases. Diminished. ABDOMEN: Soft, has a colostomy in the left side there is definitely redness around the colostomy site area although very minimal , no direct tenderness or rebound tensile guarding MUSCULOSKELETAL: No joint swelling or deformity. EXTREMITIES: No cyanosis, clubbing and there is increased pitting edema in lower extremities bilaterally. NEUROLOGICAL: Gross neurological examination did not reveal any focal deficits. The patient has developmental delay SKIN:Examination of the skin revealed no evidence of significant rashes, suspicious appearing nevi or other concerning lesions. - Labs CBC & Chem 7: 04/03/19 07:17 04/03/19 07:17 Labs: Abnormal Lab Results - Last 24 Hours (Table) 04/02/19 04/02/19 04/03/19 Range/Units 16:58 21:51 06:49 Carbon Dioxide (22-30) mmol/L BUN (7-17) mg/dL Creatinine (0.52-1.04) mg/dL Glucose (74-99) mg/dL POC Glucose (mg/dL) 200 H 141 H 118 H (75-99) mg/dL Calcium (8.4-10.2) mg/dL 04/03/19 04/03/19 Range/Units 07:17 11:50 Carbon Dioxide 32 H (22-30) mmol/L BUN 42 H (7-17) mg/dL Creatinine 1.53 H (0.52-1.04) mg/dL Glucose 134 H (74-99) mg/dL POC Glucose (mg/dL) 298 H (75-99) mg/dL Calcium 8.3 L (8.4-10.2) mg/dL Assessment and Plan Assessment: Impression: 1 acute decompensated systolic heart failure in a patient with known history of congestion heart failure with an ejection fraction of less than 30% consistent with nonischemic cardiomyopathy. Most recent echocardiogram continues to revealed severely impaired left ventricular systolic function with ejection fraction 20-25%. 2 exertional dyspnea, orthopnea and lower extremity edema secondary to above 3 history of moderate degree of mitral regurgitation and tricuspid regurgitation 4 acute kidney injury probably due to cardiorenal factors 5 chronic atrial fibrillation with rapid ventricular response and currently the patient's rate is under better control. Anticoagulated with Eliquis 6 hyperlipidemia 7 hypothyroidism 8 mild troponin leak 9 developmental delay 10 history of bowel resection and the patient is a colostomy in place Plan: The patient was seen and evaluated by Dr. Reaves. She is cleared for discharge from the pulmonary standpoint. I, the cosigning physician, performed a history & physical examination of the patient. Lungs sounds with faint bibasilar crackles. Maintaining good O2 saturations in the 90s on room air. I discussed the assessment and plan of care with my nurse practitioner, Lisha Strickland. I attest to the above note as dictated by her.
[2019-04-03] MEDS ORDERED: FUROSEMIDE 40 MG TAB PO SCH (16:00)
== END 2019-04-03 16:10 | disposition home health service (06) | DRG 291 ==
LOC: 3SCARD 15:41
PROVIDERS: ADMIT Internal Medicine; ATTEND Internal Medicine
DX: I13.0 Hypertensive heart and chronic kidney disease with heart failure and stage 1 through stage 4 chronic kidney disease, or unspecified chronic kidney disease (principal); I50.23 Acute on chronic systolic (congestive) heart failure; E87.1 Hypo-osmolality and hyponatremia; I48.1 Persistent atrial fibrillation; N17.9 Acute kidney failure, unspecified; K94.02 Colostomy infection; L03.311 Cellulitis of abdominal wall; E03.9 Hypothyroidism, unspecified; E11.22 Type 2 diabetes mellitus with diabetic chronic kidney disease; E78.5 Hyperlipidemia, unspecified; E86.1 Hypovolemia; I08.1 Rheumatic disorders of both mitral and tricuspid valves; I42.9 Cardiomyopathy, unspecified; L30.9 Dermatitis, unspecified; N18.9 Chronic kidney disease, unspecified; R79.1 Abnormal coagulation profile; Z79.01 Long term (current) use of anticoagulants; Z79.84 Long term (current) use of oral hypoglycemic drugs; Z79.890 Hormone replacement therapy; Z79.899 Other long term (current) drug therapy; Z90.49 Acquired absence of other specified parts of digestive tract; R62.50 Unspecified lack of expected normal physiological development in childhood; Y83.3 Surgical operation with formation of external stoma as the cause of abnormal reaction of the patient, or of later complication, without mention of misadventure at the time of the procedure
CPT/HCPCS: 71045; 80048; 81001; 83880; 84443; 84484; 85027; 85610; 93306; 94760

== ENCOUNTER 2019-04-11 13:58 | Inpatient (IN) | payer MEDICARE, OTHER ==
--- NOTE | 2019-04-11 14:09 | ED ---
General Adult HPI - General Stated complaint: A-Fib Time Seen by Provider: 04/11/19 14:00 Source: patient, RN/MD, EMS, RN notes reviewed, old records reviewed Mode of arrival: EMS - History of Present Illness Initial comments: This is a 73-year-old female history of atrial fibrillation was on but then is for the same who presented to [facility] today with complaints of abdominal pain and irregular heartbeat she had recently been in the emergency Department for similar symptoms found to be in A. fib with RVR and transferred for cardiac evaluation she also had a CT abdomen pelvis which was negative. She denies any fevers chills or sweats she does have an ostomy. She was found in this visit to have left lower lobe infiltrate as well as A. fib RVR. He was started on antibiotics as well as medication for the A. fib. She has no complaints at this time no other modifying factors. I did review the materials presented from [facility] - Related Data Home Medications Medication Instructions Recorded Confirmed Atorvastatin [Lipitor] 10 mg PO HS 06/03/18 04/11/19 Calcium Acetate [PhosLo] 667 mg PO DAILY 06/03/18 04/11/19 Calcium Carbonate/Vitamin D3 1 tab PO DAILY 06/03/18 04/11/19 [Calcium 600-Vit D3 400 Tablet] Levothyroxine Sodium [Synthroid] 25 mcg PO DAILY 06/03/18 04/11/19 Magnesium Oxide [Mag-Ox] 400 mg PO BID 06/03/18 04/11/19 Multivitamins, Thera [Multivitamin 1 tab PO DAILY 06/03/18 04/11/19 (formulary)] Loratadine 10 mg PO DAILY 03/31/19 04/11/19 Mesalamine [Delzicol] 400 mg PO BID 03/31/19 04/11/19 Metoprolol Tartrate [Lopressor] 25 mg PO BID 03/31/19 04/11/19 INSULIN LISPRO (humaLOG) [humaLOG] See Protocol SQ DIRECTED 04/11/19 04/11/19 Previous Rx's Medication Instructions Recorded Apixaban [Eliquis] 2.5 mg PO BID #60 tablet 04/03/19 Furosemide [Lasix] 40 mg PO BID@0900,1600 #60 tab 04/03/19 Lisinopril [Zestril] 5 mg PO DAILY #30 tablet 04/03/19 Allergies Allergy/AdvReac Type Severity Reaction Status Date / Time No Known Allergies Allergy Verified 04/11/19 14:06 Review of Systems ROS Statement: Those systems with pertinent positive or pertinent negative responses have been documented in the HPI. ROS Other: All systems not noted in ROS Statement are negative. Past Medical History Past Medical History: Atrial Fibrillation, Heart Failure, Diabetes Mellitus, Hyperlipidemia, Hypertension, Thyroid Disorder Additional Past Medical History / Comment(s): Mild developmental delay, the patient lives in a foster home since 1990, CHF with systolic heart failure/nonischemic cardiomyopathy, chronic atrial fibrillation, long-term antibiotic ventilation with warfarin, hypertension, hyperlipidemia, diabetes mellitus, hypothyroidism History of Any Multi-Drug Resistant Organisms: None Reported Past Surgical History: Bladder Surgery, Bowel Resection Additional Past Surgical History / Comment(s): HAS COLOSTOMY. Past Anesthesia/Blood Transfusion Reactions: Unable to Obtain Past Psychological History: No Psychological Hx Reported Smoking Status: Never smoker Past Alcohol Use History: None Reported Past Drug Use History: None Reported - Past Family History Mother Family Medical History: Unable to Obtain General Exam - General Exam Comments Initial Comments: This is a well-developed sec appearing female who is awake alert somewhat slow to answer General appearance: alert, in no apparent distress Head exam: Present: atraumatic, normocephalic, normal inspection Eye exam: Present: normal appearance, PERRL, EOMI. Absent: scleral icterus, conjunctival injection, periorbital swelling ENT exam: Present: normal exam, mucous membranes moist Neck exam: Present: normal inspection. Absent: tenderness, meningismus, lymphad enopathy Respiratory exam: Present: normal lung sounds bilaterally. Absent: respiratory distress, wheezes, rales, rhonchi, stridor Cardiovascular Exam: Present: tachycardia, irregular rhythm. Absent: systolic murmur, diastolic murmur, rubs, gallop, clicks GI/Abdominal exam: Present: soft, normal bowel sounds, other (Colostomy present in the left side). Absent: distended, tenderness, guarding, rebound, rigid Rectal exam: Present: deferred Extremities exam: Present: normal inspection, full ROM, normal capillary refill. Absent: tenderness, pedal edema, joint swelling, calf tenderness Back exam: Present: normal inspection Neurological exam: Present: alert, oriented X3, CN II-XII intact Psychiatric exam: Present: normal affect, normal mood Skin exam: Present: warm, intact, normal color, diaphoretic. Absent: rash Course Vital Signs 04/11/19 14:04 Temperature 97.8 F Pulse Rate 96 Respiratory 22 Rate Blood Pressure 121/92 O2 Sat by Pulse 95 Oximetry EKG Findings - EKG Results: EKG: interpreted by ERMD (Atrial fibrillation rate of 99 QRS 96 QT since QTC 404/[address] configuration prolonged QT) Medical Decision Making - Medical Decision Making The patient will be admitted for inpatient evaluation pneumonia and A. fib RVR did discuss the case with Dr. Colón. Disposition Clinical Impression: Atrial fibrillation with RVR, Left lower lobe pneumonia Disposition: ADMITTED IP TO THIS HOSP Condition: Fair Referrals: Adolfo Wang MD [Primary Care Provider] - 1-2 days
[2019-04-11] MEDS ORDERED: NALOXONE 0.4 MG/ML 1 ML VIAL IV PRN (15:17)
[2019-04-11] MEDS ORDERED: PNEUMONIA PROTOCOL UTILIZED 1 EACH MISC PO PRN (15:21)
[2019-04-11] MEDS: SODIUM CHLORIDE 0.9% 1,000 ML IV SCH (16:27)
[2019-04-11] MEDS: FUROSEMIDE 40 MG TAB PO SCH (16:27)
[2019-04-11 17:11] LABS: Glucose,Whole Blood 32 mg/dL (75-99)
[2019-04-11 17:13] LABS: Glucose,Whole Blood 31 mg/dL (75-99)
[2019-04-11 17:29] LABS: Glucose,Whole Blood 32 mg/dL (75-99)
[2019-04-11 17:33] VITALS: BMI 29.9
[2019-04-11 17:46] LABS: Glucose,Whole Blood 34 mg/dL (75-99)
[2019-04-11] MEDS: INSULIN ASPART (NovoLOG) 100 UNIT/ML VIAL SQ SCH ×2 (18:08→20:19)
[2019-04-11 18:20] LABS: Glucose,Whole Blood 45 mg/dL (75-99)
[2019-04-11 18:28] LABS: Glucose,Whole Blood 65 mg/dL (75-99)
[2019-04-11 18:59] LABS: Glucose,Whole Blood 81 mg/dL (75-99)
[2019-04-11 20:02] LABS: Glucose,Whole Blood 220 mg/dL (75-99)
[2019-04-11] MEDS: METOPROLOL TARTRATE 25 MG TAB PO SCH (20:19)
[2019-04-11] MEDS: APIXABAN 2.5 MG TABLET PO SCH (20:19)
[2019-04-11] MEDS: MAGNESIUM OXIDE 400 MG TAB PO SCH (20:19)
[2019-04-11] MEDS: MESALAMINE 400 MG PO SCH (20:19)
[2019-04-11] MEDS: ATORVASTATIN 10 MG TAB PO SCH (20:19)
--- NOTE | 2019-04-12 00:26 | P.HPIM ---
History of Present Illness H&P Date: 04/11/19 Chief Complaint: Abdominal discomfort Patient is a 72-year-old female with known history of chronic atrial fibrillation on anticoagulation with Eliquis, CHF with systolic heart failure/nonischemic cardio myopathy, hypertension, hyperlipidemia and hypothyroidism as well as diabetes type 2 was initially presented to [facility] with complaints of abdominal discomfort and found have A. fib with RVR in the ER. Patient was started on Cardizem drip. Patient recently had CT abdomen and pelvis which was negative for any acute process. Patient had chest x-ray showed left lower lobe infiltrate. Patient otherwise denied any complaints of fever or chills. Patient was started on ceftriaxone and azithromycin and transferred to [facility] for further management. EKG showed atrial fibrillation. Laboratory data reviewed. Patient does have colostomy bag in place left side. Review of Systems Constitutional: Patient denies any fever or chills . No generalized weakness or weight loss. Abdomen: Patient denied nausea vomiting and diarrhea and abdominal pain. Cardiovascular: Patient denies any chest pain or short of breath no palpitations. Respiratory: patient denied any cough is from production. No shortness of breath Neurologic: Patient denied any numbness or tingling headache. Patient is a poor historian. Complete review of systems could not be obtained from the patient. Past Medical History Past Medical History: Atrial Fibrillation, Heart Failure, Diabetes Mellitus, Hyperlipidemia, Hypertension, Thyroid Disorder Additional Past Medical History / Comment(s): Mild developmental delay, the patient lives in a foster home since 1990, CHF with systolic heart failure/nonischemic cardiomyopathy, chronic atrial fibrillation, long-term antibiotic ventilation with warfarin, hypertension, hyperlipidemia, diabetes mellitus, hypothyroidism History of Any Multi-Drug Resistant Organisms: None Reported Past Surgical History: Bladder Surgery, Bowel Resection Additional Past Surgical History / Comment(s): HAS COLOSTOMY. Past Anesthesia/Blood Transfusion Reactions: Unable to Obtain Past Psychological History: No Psychological Hx Reported Smoking Status: Never smoker Past Alcohol Use History: None Reported Past Drug Use History: None Reported - Past Family History Mother Family Medical History: Unable to Obtain Medications and Allergies Home Medications Medication Instructions Recorded Confirmed Type Atorvastatin [Lipitor] 10 mg PO HS 06/03/18 04/11/19 History Calcium Acetate [PhosLo] 667 mg PO DAILY 06/03/18 04/11/19 History Calcium Carbonate/Vitamin D3 1 tab PO DAILY 06/03/18 04/11/19 History [Calcium 600-Vit D3 400 Tablet] Levothyroxine Sodium [Synthroid] 25 mcg PO DAILY 06/03/18 04/11/19 History Magnesium Oxide [Mag-Ox] 400 mg PO BID 06/03/18 04/11/19 History Multivitamins, Thera [Multivitamin 1 tab PO DAILY 06/03/18 04/11/19 History (formulary)] Loratadine 10 mg PO DAILY 03/31/19 04/11/19 History Mesalamine [Delzicol] 400 mg PO BID 03/31/19 04/11/19 History Metoprolol Tartrate [Lopressor] 25 mg PO BID 03/31/19 04/11/19 History Apixaban [Eliquis] 2.5 mg PO BID #60 tablet 04/03/19 04/11/19 Rx Furosemide [Lasix] 40 mg PO BID@0900,1600 #60 tab 04/03/19 04/11/19 Rx Lisinopril [Zestril] 5 mg PO DAILY #30 tablet 04/03/19 04/11/19 Rx INSULIN LISPRO (humaLOG) [humaLOG] See Protocol SQ DIRECTED 04/11/19 04/11/19 History Allergies Allergy/AdvReac Type Severity Reaction Status Date / Time No Known Allergies Allergy Verified 04/11/19 14:06 Physical Exam Vitals: Vital Signs Temp Pulse Pulse Resp BP Pulse Ox 04/11/19 16:33 82 18 122/96 100 04/11/19 15:54 90 04/11/19 14:04 97.8 F 96 22 121/92 95 Intake and Output 04/11/19 04/11/19 04/11/19 06:59 14:59 22:59 Other: Weight 54.431 kg PHYSICAL EXAMINATION: Patient is lying in the bed comfortably, no acute distress, awake alert and oriented. Lethargic. HEENT: Normocephalic. Neck is supple. Pupils reactive. Nostrils clear. Oral cavity is moist. Ears reveal no drainage. Neck reveals no JVD, carotid bruits, or thyromegaly. CHEST EXAMINATION: Trachea is central. Symmetrical expansion. Bibasilar diminished air entry. Lung dior clear to auscultation and percussion. CARDIAC: Normal S1, S2 with no gallops. No murmurs ABDOMEN: Soft. Nontender. Bowel sounds normal. No organomegaly. No abdominal bruits. Left-sided colostomy bag present. Extremities: reveal no edema. No clubbing or cyanosis Neurologically awake, alert, oriented x3 with well-coordinated movements. No focal deficits noted Skin: No rash or skin lesions. Psychiatric: Coperative. Nonsuicidal Musculoskeletal: No joint swelling or deformity. Normal range of motion. Results CBC & Chem 7: 04/11/19 18:04 Labs: Abnormal Lab Results - Last 24 Hours (Table) 04/11/19 04/11/19 Range/Units 17:10 17:12 POC Glucose (mg/dL) 32 L 31 L (75-99) mg/dL Thrombosis Risk Factor Assmnt - DVT/VTE Prophylaxis DVT/VTE Prophylaxis: Pharmacologic Prophylaxis ordered Assessment and Plan Assessment: Left lower lobe pneumonia Atrial fibrillation with rapid regular rate. Off Cardizem drip. Chronic atrial fibrillation on anticoagulation with Eliquis Diabetes type 2 Hypertension Hyperlipidemia Chronic CHF with systolic dysfunction Nonischemic cardiomyopathy Hypothyroidism Colostomy bag with history of colectomy. Plan: Patient be continued on antibiotics in form of ceftriaxone and azithromycin. Continue with metoprolol and telemetry monitoring. Patient CBC BMP, TSH, BMP and repeat chest x-ray tomorrow. Continue the home medications and follow closely. Accu-Cheks and insulin sliding scale. Colostomy bag care. Further recommendations based on clinical course. Prognosis is guarded. Time with Patient: Greater than 30
[2019-04-12] MEDS: SODIUM CHLORIDE 0.9% 1,000 ML IV SCH (05:34)
[2019-04-12] MEDS: LEVOTHYROXINE 25 MCG TAB PO SCH (06:19)
[2019-04-12 06:22] LABS: Glucose,Whole Blood 64 mg/dL (75-99)
[2019-04-12] MEDS: INSULIN ASPART (NovoLOG) 100 UNIT/ML VIAL SQ SCH ×4 (06:23→20:34)
[2019-04-12 06:42] LABS: Glucose,Whole Blood 37 mg/dL (75-99)
[2019-04-12] MEDS ORDERED: DEXTROSE 10 % IN WATER 250 ML IV ONE (06:45)
[2019-04-12 06:53] LABS: Calcium 7.7 mg/dL (8.4-10.2); Potassium 4.5 mmol/L (3.5-5.1)
[2019-04-12 07:02] LABS: Glucose,Whole Blood 35 mg/dL (75-99)
--- NOTE | 2019-04-12 07:06 | XR ---
EXAMINATION TYPE: XR chest 1V DATE OF EXAM: 04/12/2019 CLINICAL HISTORY: Difficulty breathing and pneumonia progress study. TECHNIQUE: Single AP portable frontal view of the chest is obtained. COMPARISON: Outside Chest x-ray from one day earlier. Prior chest x-ray March 31, 2019. FINDINGS: Osseous structures remain demineralized. There is persistent cardiomegaly. There is backgr ound chronic parenchymal change without suspicious new focal airspace opacity or pneumothorax seen bi laterally. Small bilateral pleural effusions are felt to remain present. IMPRESSION: Overall stable findings, cardiomegaly with likely small bilateral pleural effusions are redemonstrated.
[2019-04-12 07:15] LABS: Glucose,Whole Blood 223 mg/dL (75-99)
[2019-04-12 07:21] LABS: Basophils % (A) 1 %; Eosinophils # (A) 0.1 k/uL (0-0.7); Eosinophils % (A) 2 %; Lymphocytes # (A) 0.7 k/uL (1.0-4.8); Lymphocytes % (A) 12 %; MCH 29.5 pg (25.0-35.0); MCHC 32.5 g/dL (31.0-37.0); Mean Platelet Volume 7.6; Monocytes # (A) 0.4 k/uL (0-1.0); Monocytes % (A) 7 %; Neutrophils # (A) 4.5 k/uL (1.3-7.7); Neutrophils % (A) 76 %; Platelet Count 302 k/uL (150-450); RBC 4.07 m/uL (3.80-5.40); RDW 15.3 % (11.5-15.5); WBC 5.8 k/uL (3.8-10.6)
[2019-04-12] MEDS: MULTIVITAMINS, THERA 1 EACH TAB PO SCH (08:17)
[2019-04-12] MEDS: LORATADINE 10 MG TAB PO SCH (08:17)
[2019-04-12] MEDS: APIXABAN 2.5 MG TABLET PO SCH ×2 (08:17→20:44)
[2019-04-12] MEDS: LISINOPRIL 5 MG TAB PO SCH (08:17)
[2019-04-12] MEDS: CALCIUM ACETATE 667 MG CAP PO SCH (08:17)
[2019-04-12] MEDS: CALCIUM CARB-VIT D 500MG-200UN 1 EACH TAB PO SCH (08:17)
[2019-04-12] MEDS: MAGNESIUM OXIDE 400 MG TAB PO SCH ×2 (08:17→20:44)
[2019-04-12] MEDS: METOPROLOL TARTRATE 25 MG TAB PO SCH ×2 (08:17→20:44)
[2019-04-12] MEDS: FUROSEMIDE 40 MG TAB PO SCH ×2 (08:17→15:45)
[2019-04-12] MEDS: MESALAMINE 400 MG PO SCH ×2 (08:18→20:44)
[2019-04-12 11:48] LABS: Glucose,Whole Blood 275 mg/dL (75-99)
[2019-04-12] MEDS: AZITHROMYCIN 500 MG TAB PO SCH (15:45)
[2019-04-12 17:07] LABS: Glucose,Whole Blood 106 mg/dL (75-99)
[2019-04-12] MEDS ORDERED: METOPROLOL TARTRATE 25 MG TAB PO STA (18:10)
[2019-04-12 20:36] LABS: Glucose,Whole Blood 95 mg/dL (75-99)
[2019-04-12] MEDS: ATORVASTATIN 10 MG TAB PO SCH (20:44)
[2019-04-13 03:17] LABS: Glucose,Whole Blood 92 mg/dL (75-99)
[2019-04-13] MEDS: LEVOTHYROXINE 25 MCG TAB PO SCH (05:47)
[2019-04-13 06:45] LABS: Glucose,Whole Blood 103 mg/dL (75-99)
[2019-04-13] MEDS: INSULIN ASPART (NovoLOG) 100 UNIT/ML VIAL SQ SCH ×4 (06:49→20:47)
[2019-04-13] MEDS: MESALAMINE 400 MG PO SCH ×2 (08:21→20:47)
[2019-04-13] MEDS: LORATADINE 10 MG TAB PO SCH (08:22)
[2019-04-13] MEDS: LISINOPRIL 5 MG TAB PO SCH (08:22)
[2019-04-13] MEDS: APIXABAN 2.5 MG TABLET PO SCH (08:22)
[2019-04-13] MEDS: CALCIUM ACETATE 667 MG CAP PO SCH (08:22)
[2019-04-13] MEDS: FUROSEMIDE 40 MG TAB PO SCH (08:22)
[2019-04-13] MEDS: CALCIUM CARB-VIT D 500MG-200UN 1 EACH TAB PO SCH (08:22)
[2019-04-13] MEDS: MAGNESIUM OXIDE 400 MG TAB PO SCH ×2 (08:23→20:46)
[2019-04-13] MEDS: METOPROLOL TARTRATE 25 MG TAB PO SCH ×3 (08:23→20:47)
[2019-04-13] MEDS: MULTIVITAMINS, THERA 1 EACH TAB PO SCH (08:25)
[2019-04-13] MEDS ORDERED: METOPROLOL TARTRATE 25 MG TAB PO SCH (09:00)
--- NOTE | 2019-04-13 09:00 | P.CRDCN ---
History of Present Illness Consult date: 04/13/19 Requesting physician: Naun Colón Consult reason: atrial fibrillation Chief complaint: Abdominal pain History of present illness: This is a pleasant 73-year-old female who follows with Dr. Steel in the [place] office, she has history of chronic persistent atrial fibrillation, hypertension, diabetes, hyperlipidemia, hypothyroidism, nonischemic cardiomyopathy, she underwent a cardiac catheterization in May 2018 which revealed a normal coronary arteries, she has nonischemic cardiomyopathy, moderate MR, moderate TR, was recently in the hospital earlier this month with exacerbation of congestive heart failure as well as A. fib with RVR. She presented to [facility] on this occasion with symptoms of abdominal discomfort, she was found to be in atrial fibrillation with a rapid ventricular response, initiated on a Cardizem drip and transferred here. Mare anton had a recent CAT scan of the abdomen and pelvis which was negative for any acute process, the patient had an x-ray at [facility] which revealed suggestion of the left lower lobe infiltrate, she was initiated on IV antibiotics. Her lab work performed there, sodium 133, potassium 3.8, BUN 42 and creatinine 1.4, lipase was 13 lactic acid 1.8 troponin 0.05 white blood cell count 8.7, hemoglobin 13.2, platelet count 336. Chest x-ray shows overall stable findings on arrival here, cardiomegaly with small bilateral pleural effusions redemonstrated. EKG shows atrial fibrillation with moderately rapid ventricular response. Blood pressure 113/73 with a heart rate in the 90s to low 100s, 100% on 2 L of oxygen. Patient is a afebrile. White blood cell count 5.8, hemoglobin 12.0, platelet count 302. Sodium 135, potassium 4.5, BUN 41 and creatinine 1.2. Troponin 0.029. BNP level 96169, TSH 1.4. Troponin 0.029. At the time of my examination this morning, patient denies any abdominal discomfort, her breathing appears to be stable she is lying flat in bed. Denies any chest discomfort at present. Past Medical History Past Medical History: Atrial Fibrillation, Heart Failure, Diabetes Mellitus, Hyperlipidemia, Hypertension, Thyroid Disorder Additional Past Medical History / Comment(s): Mild developmental delay, the patient lives in a foster home since 1990, CHF with systolic heart failure/nonischemic cardiomyopathy, chronic atrial fibrillation, long-term antibiotic ventilation with warfarin, hypertension, hyperlipidemia, diabetes mellitus, hypothyroidism History of Any Multi-Drug Resistant Organisms: None Reported Past Surgical History: Bladder Surgery, Bowel Resection Additional Past Surgical History / Comment(s): HAS COLOSTOMY. Past Anesthesia/Blood Transfusion Reactions: Unable to Obtain Past Psychological History: No Psychological Hx Reported Smoking Status: Never smoker Past Alcohol Use History: None Reported Past Drug Use History: None Reported - Past Family History Mother Family Medical History: Unable to Obtain Medications and Allergies Home Medications Medication Instructions Recorded Confirmed Type Atorvastatin [Lipitor] 10 mg PO HS 06/03/18 04/11/19 History Calcium Acetate [PhosLo] 667 mg PO DAILY 06/03/18 04/11/19 History Calcium Carbonate/Vitamin D3 1 tab PO DAILY 06/03/18 04/11/19 History [Calcium 600-Vit D3 400 Tablet] Levothyroxine Sodium [Synthroid] 25 mcg PO DAILY 06/03/18 04/11/19 History Magnesium Oxide [Mag-Ox] 400 mg PO BID 06/03/18 04/11/19 History Multivitamins, Thera [Multivitamin 1 tab PO DAILY 06/03/18 04/11/19 History (formulary)] Loratadine 10 mg PO DAILY 03/31/19 04/11/19 History Mesalamine [Delzicol] 400 mg PO BID 03/31/19 04/11/19 History Metoprolol Tartrate [Lopressor] 25 mg PO BID 03/31/19 04/11/19 History Apixaban [Eliquis] 2.5 mg PO BID #60 tablet 04/03/19 04/11/19 Rx Furosemide [Lasix] 40 mg PO BID@0900,1600 #60 tab 04/03/19 04/11/19 Rx Lisinopril [Zestril] 5 mg PO DAILY #30 tablet 04/03/19 04/11/19 Rx INSULIN LISPRO (humaLOG) [humaLOG] See Protocol SQ DIRECTED 04/11/19 04/11/19 History Allergies Allergy/AdvReac Type Severity Reaction Status Date / Time No Known Allergies Allergy Verified 04/11/19 14:06 Physical Exam Vitals: Vital Signs Temp Pulse Resp BP Pulse Ox 04/13/19 08:00 98.0 F 111 H 18 113/73 100 04/13/19 04:00 98.3 F 81 18 89/52 100 04/13/19 00:00 116 H 20 146/78 99 04/12/19 20:00 97.7 F 136 H 20 105/83 100 04/12/19 15:40 98 F 83 18 93/64 100 04/12/19 12:00 98 F 64 18 92/65 100 Intake and Output 04/12/19 04/13/19 04/13/19 22:59 06:59 14:59 Intake Total 60 Output Total 8 700 400 Balance 52 -700 -400 Intake: Oral 60 Output: Urine 8 500 400 Stool 200 Other: Voiding Method Bedside Commode # Voids 1 # Bowel Movements 1 Weight 60.5 kg PHYSICAL EXAMINATION: GENERAL: 83-year-old female in no acute distress at the time of my examination HEENT: Head is atraumatic, normocephalic. Pupils equal, round. Sclera anicteric. Conjunctiva are clear. Mucous membranes of the mouth are moist. Neck is supple. There is no elevated jugular venous pressure. No carotid bruit is heard. HEART EXAMINATION: S1 and S2 irregularly irregular a systolic murmur is heard CHEST EXAMINATION: Lungs are clear with mild diminished air entry to the bases, fine crackles to the bases. ABDOMEN: Soft, nontender. Bowel sounds are heard. Colostomy in place No organomegaly noted. EXTREMITIES:[ 2+ peripheral pulses with no evidence of peripheral edema bilateral of small ulcerations noted, chronic NEUROLOGIC patient is awake, alert and oriented 3 . . Results 04/12/19 06:03 04/12/19 06:03 Current Medications Generic Name Dose Route Start Last Admin Trade Name Maya PRN Reason Stop Dose Admin Apixaban 2.5 mg 04/11/19 21:00 04/13/19 08:22 Eliquis PO 2.5 mg BID ISABEL Administration Atorvastatin Calcium 10 mg 04/11/19 21:00 04/12/19 20:44 Lipitor PO 10 mg HS ISABEL Administration Azithromycin 500 mg 04/12/19 16:00 04/12/19 15:45 Zithromax PO 500 mg DAILY@1600 ISABEL Administration Calcium Acetate 667 mg 04/12/19 09:00 04/13/19 08:22 Phoslo PO 667 mg DAILY ISABEL Administration Calcium Carbonate 1 each 04/12/19 09:00 04/13/19 08:22 Oscal 500+D PO 1 each DAILY ISABEL Administration Furosemide 40 mg 04/11/19 16:00 04/13/19 08:22 Lasix PO 40 mg BID@0900,1600 ISABEL Administration Ceftriaxone Sodium 1 gm/ 50 mls @ 100 mls/hr 04/12/19 09:00 04/13/19 08:34 Sodium Chloride IVPB 100 mls/hr Q24HR ISABEL Administration Insulin Aspart 0 unit 04/11/19 17:30 04/13/19 06:49 Novolog SQ Not Given ACHS [facility] Protocol Levothyroxine Sodium 25 mcg 04/12/19 06:30 04/13/19 05:47 Synthroid PO 25 mcg 0630 ISABEL Administration Lisinopril 5 mg 04/12/19 09:00 04/13/19 08:22 Zestril PO 5 mg DAILY ISABEL Administration Loratadine 10 mg 04/12/19 09:00 04/13/19 08:22 Claritin PO 10 mg DAILY ISABEL Administration Magnesium Oxide 400 mg 04/11/19 21:00 04/13/19 08:23 Mag-Ox PO 400 mg BID ISABEL Administration Metoprolol Tartrate 25 mg 04/11/19 21:00 04/13/19 08:23 Lopressor PO 25 mg BID ISABEL Administration Miscellaneous Information 1 each 04/11/19 15:21 Pneumonia Protocol Utilized PO ONCE PRN Per Protocol Multivitamins 1 each 04/12/19 09:00 04/13/19 08:25 Theragran PO 1 each DAILY ISABEL Administration Naloxone HCl 0.2 mg 04/11/19 15:17 Narcan IV Q2M PRN Opioid Reversal Mesalamine 400 Mg 400 mg 04/11/19 21:00 04/13/19 08:21 PO Not Given BID ISABEL Intake and Output 04/12/19 04/13/19 04/13/19 22:59 06:59 14:59 Intake Total 60 Output Total 8 700 400 Balance 52 -700 -400 Intake: Oral 60 Output: Urine 8 500 400 Stool 200 Other: Voiding Method Bedside Commode # Voids 1 # Bowel Movements 1 Weight 60.5 kg 04/12/19 06:03 04/12/19 06:03 EKG Interpretations (text) EKG shows atrial fibrillation with a moderately rapid ventricular response. Assessment and Plan Plan: Assessment and plan #1 abdominal discomfort #2 chronic persistent atrial fibrillation on Eliquis for anticoagulation #3 acute on chronic renal failure #4 systolic congestive heart failure acute on chronic #5 possible left lower lobe pneumonia #6 nonischemic cardio myopathy with documented ejection fraction of 20-25% by recent echo performed earlier this month. Patient did have a cardiac cath in 2018 which revealed normal coronary arteries. Plan We will give the patient some IV Lasix, discontinue the oral Lasix. Increase the dose of beta arnaud to maintain a more adequate heart rate control. Add some Aldactone to the patient's medication regime. We will not repeat an echocardiogram on this admission as the patient just recently had one performed. Further recommendations to follow. DNP note has been reviewed, I agree with a documented findings and plan of care. Patient was seen and examined.
[2019-04-13] MEDS: FUROSEMIDE 10 MG/ML 4 ML VIAL IV SCH ×2 (09:39→20:47)
[2019-04-13] MEDS: SPIRONOLACTONE 25 MG TAB PO SCH (11:30)
[2019-04-13 11:50] LABS: Glucose,Whole Blood 154 mg/dL (75-99)
[2019-04-13] MEDS: AZITHROMYCIN 500 MG TAB PO SCH (16:02)
[2019-04-13 16:42] LABS: Glucose,Whole Blood 292 mg/dL (75-99)
[2019-04-13 20:17] LABS: Glucose,Whole Blood 160 mg/dL (75-99)
[2019-04-13] MEDS: ATORVASTATIN 10 MG TAB PO SCH (20:46)
[2019-04-13] MEDS: APIXABAN 5 MG TAB PO SCH (20:46)
--- NOTE | 2019-04-13 22:06 | P.PN ---
Subjective Progress Note Date: 04/12/19 Principal diagnosis: Left lower lobe pneumonia Atrial fibrillation with rapid ventricular rate Patient is a 72-year-old female with known history of chronic atrial fibrillation on anticoagulation with Eliquis, CHF with systolic heart failure/nonischemic cardio myopathy, hypertension, hyperlipidemia and hypothyroidism as well as diabetes type 2 was initially presented to [facility] with complaints of abdominal discomfort and found have A. fib with RVR in the ER. Patient was started on Cardizem drip. Patient recently had CT abdomen and pelvis which was negative for any acute process. Patient had chest x-ray showed left lower lobe infiltrate. Patient otherwise denied any complaints of fever or chills. Patient was started on ceftriaxone and azithromycin and transferred to [facility] for further management. EKG showed atrial fibrillation. Laboratory data reviewed. Patient does have colostomy bag in place left side. 04/12/2019 Patient's breathing status is better today. Otherwise patient went into RVR and cardiology was consulted. No complaints of chest pain or worsening short of breath. No leg swelling. Tolerating oral diet. Patient is hypoglycemic. Insulin is on hold. We will workup for hypoglycemia with the patient continues to have low blood sugars. Current medications reviewed. Objective - Vital Signs Vital signs: Vital Signs Temp 97.9 F 04/12/19 08:15 Pulse 98 04/12/19 08:15 Resp 18 04/12/19 08:15 BP 116/87 04/12/19 08:15 Pulse Ox 100 04/12/19 08:15 Intake & Output 04/11/19 04/12/19 04/12/19 18:59 06:59 18:59 Intake Total 236 340 Output Total 1 Balance 236 339 Weight 54.431 kg Intake: Oral 236 340 Output: Urine 1 Other: Voiding Method Bedside Commode # Bowel Movements 1 - Exam PHYSICAL EXAMINATION: Patient is lying in the bed comfortably, no acute distress, awake alert and oriented. Mild cognitive impairment. HEENT: Normocephalic. Neck is supple. Pupils reactive. Nostrils clear. Oral cavity is moist. Ears reveal no drainage. Neck reveals no JVD, carotid bruits, or thyromegaly. CHEST EXAMINATION: Trachea is central. Symmetrical expansion. Lung dior clear to auscultation and percussion. CARDIAC: Normal S1, S2 with no gallops. No murmurs. Irregularly irregular rhythm. ABDOMEN: Soft. Bowel sounds normal. No organomegaly. No abdominal bruits. Colostomy bag in place. Extremities: reveal no edema. No clubbing or cyanosis Neurologically awake, alert, oriented x3 with well-coordinated movements. No focal deficits noted Skin: No rash or skin lesions. Psychiatric: Coperative. Nonsuicidal Musculoskeletal: No joint swelling or deformity. Normal range of motion. - Labs CBC & Chem 7: 04/12/19 06:03 04/12/19 06:03 Labs: Abnormal Lab Results - Last 24 Hours (Table) 04/11/19 04/11/19 04/11/19 Range/Units 17:10 17:12 17:28 Lymphocytes # (1.0-4.8) k/uL Sodium (137-145) mmol/L BUN (7-17) mg/dL Creatinine (0.52-1.04) mg/dL Glucose (74-99) mg/dL POC Glucose (mg/dL) 32 L 31 L 32 L (75-99) mg/dL Calcium (8.4-10.2) mg/dL 04/11/19 04/11/19 04/11/19 Range/Units 17:45 18:09 18:27 Lymphocytes # (1.0-4.8) k/uL Sodium (137-145) mmol/L BUN (7-17) mg/dL Creatinine (0.52-1.04) mg/dL Glucose (74-99) mg/dL POC Glucose (mg/dL) 34 L 45 L 65 L (75-99) mg/dL Calcium (8.4-10.2) mg/dL 04/11/19 04/12/19 04/12/19 Range/Units 20:00 06:03 06:03 Lymphocytes # 0.7 L (1.0-4.8) k/uL Sodium 135 L (137-145) mmol/L BUN 41 H (7-17) mg/dL Creatinine 1.22 H (0.52-1.04) mg/dL Glucose 54 L (74-99) mg/dL POC Glucose (mg/dL) 220 H (75-99) mg/dL Calcium 7.7 L (8.4-10.2) mg/dL 04/12/19 04/12/19 04/12/19 Range/Units 06:20 06:41 07:01 Lymphocytes # (1.0-4.8) k/uL Sodium (137-145) mmol/L BUN (7-17) mg/dL Creatinine (0.52-1.04) mg/dL Glucose (74-99) mg/dL POC Glucose (mg/dL) 64 L 37 L 35 L (75-99) mg/dL Calcium (8.4-10.2) mg/dL 04/12/19 04/12/19 Range/Units 07:04 11:47 Lymphocytes # (1.0-4.8) k/uL Sodium (137-145) mmol/L BUN (7-17) mg/dL Creatinine (0.52-1.04) mg/dL Glucose (74-99) mg/dL POC Glucose (mg/dL) 223 H 275 H (75-99) mg/dL Calcium (8.4-10.2) mg/dL Assessment and Plan Assessment: Left lower lobe pneumonia Atrial fibrillation with rapid regular rate. Off Cardizem drip. Hypoglycemia likely due to insulin at home. Improving now. Chronic atrial fibrillation on anticoagulation with Eliquis Diabetes type 2 Hypertension Hyperlipidemia Chronic CHF with systolic dysfunction Nonischemic cardiomyopathy Hypothyroidism Colostomy bag with history of colectomy. Plan: Patient be continued on antibiotics in form of ceftriaxone and azithromycin. Continue with metoprolol and telemetry monitoring. Patient CBC BMP, TSH, BMP an d repeat chest x-ray tomorrow. Continue the home medications and follow closely. Accu-Cheks and insulin sliding scale. Colostomy bag care. Further recommendations based on clinical course. Prognosis is guarded. Time with Patient: Greater than 30
--- NOTE | 2019-04-13 22:08 | P.PN ---
Subjective Progress Note Date: 04/13/19 Principal diagnosis: Left lower lobe pneumonia Atrial fibrillation with rapid ventricular rate Patient is a 72-year-old female with known history of chronic atrial fibrillation on anticoagulation with Eliquis, CHF with systolic heart failure/nonischemic cardio myopathy, hypertension, hyperlipidemia and hypothyroidism as well as diabetes type 2 was initially presented to [facility] with complaints of abdominal discomfort and found have A. fib with RVR in the ER. Patient was started on Cardizem drip. Patient recently had CT abdomen and pelvis which was negative for any acute process. Patient had chest x-ray showed left lower lobe infiltrate. Patient otherwise denied any complaints of fever or chills. Patient was started on ceftriaxone and azithromycin and transferred to [facility] for further management. EKG showed atrial fibrillation. Laboratory data reviewed. Patient does have colostomy bag in place left side. 04/12/2019 Patient's breathing status is better today. Otherwise patient went into RVR and cardiology was consulted. No complaints of chest pain or worsening short of breath. No leg swelling. Tolerating oral diet. Patient is hypoglycemic. Insulin is on hold. We will workup for hypoglycemia with the patient continues to have low blood sugars. 03/24/2019 Patient is currently sitting in the chair comfortably. Complains of chest pain or worsening shortness of breath. Breathing status improved today. Patient was started on IV Lasix. BNP is elevated to 23,000. Chest x-ray showed congestion. Cardiology is following. Probably increase to 3 times a day. Hypoglycemia resolved. No fever no chills. Tolerating oral diet. Current medications reviewed. Objective - Vital Signs Vital signs: Vital Signs Temp 97.9 F 04/13/19 19:33 Pulse 126 H 04/13/19 20:00 Resp 18 04/13/19 20:00 BP 100/79 04/13/19 19:33 Pulse Ox 99 04/13/19 19:33 Intake & Output 04/13/19 04/13/19 04/14/19 06:59 18:59 06:59 Intake Total 838 Output Total 700 800 600 Balance -700 38 -600 Weight 60.5 kg Intake: Oral 838 Output: Urine 500 800 600 Stool 200 Other: Voiding Method Bedside Commode Bedside Commode # Voids 1 1 # Bowel Movements 1 - Exam PHYSICAL EXAMINATION: Patient is lying in the bed comfortably, no acute distress, awake alert and oriented. Mild cognitive impairment. HEENT: Normocephalic. Neck is supple. Pupils reactive. Nostrils clear. Oral cavity is moist. Ears reveal no drainage. Neck reveals no JVD, carotid bruits, or thyromegaly. CHEST EXAMINATION: Trachea is central. Symmetrical expansion. Lung dior clear to auscultation and percussion. CARDIAC: Normal S1, S2 with no gallops. No murmurs. Irregularly irregular rhythm. ABDOMEN: Soft. Bowel sounds normal. No organomegaly. No abdominal bruits. Colostomy bag in place. Extremities: reveal no edema. No clubbing or cyanosis Neurologically awake, alert, oriented x3 with well-coordinated movements. No focal deficits noted Skin: No rash or skin lesions. Psychiatric: Coperative. Nonsuicidal Musculoskeletal: No joint swelling or deformity. Normal range of motion. - Labs CBC & Chem 7: 04/12/19 06:03 04/12/19 06:03 Labs: Abnormal Lab Results - Last 24 Hours (Table) 04/13/19 04/13/19 04/13/19 Range/Units 06:43 11:50 16:40 POC Glucose (mg/dL) 103 H 154 H 292 H (75-99) mg/dL 04/13/19 Range/Units 20:15 POC Glucose (mg/dL) 160 H (75-99) mg/dL Microbiology - Last 24 Hours (Table) 04/11/19 16:08 Blood Culture - Preliminary Blood No Growth after 48 hours Assessment and Plan Assessment: Left lower lobe pneumonia Acute on chronic CHF with systolic dysfunction. Atrial fibrillation with rapid regular rate. Off Cardizem drip. Metoprolol increased to 3 times a day. Hypoglycemia likely due to insulin at home. Improving now. Chronic atrial fibrillation on anticoagulation with Eliquis Diabetes type 2 Hypertension Hyperlipidemia Chronic CHF with systolic dysfunction Nonischemic cardiomyopathy Hypothyroidism Colostomy bag with history of colectomy. Plan: Patient be continued on antibiotics in form of ceftriaxone and azithromycin. Continue with metoprolol and telemetry monitoring. Elevated BNP. Continue the home medications and follow closely. Accu-Cheks and insulin sliding scale. Colostomy bag care. Further recommendations based on clinical course. Prognosis is guarded. Time with Patient: Greater than 30
[2019-04-14] MEDS: LEVOTHYROXINE 25 MCG TAB PO SCH (06:23)
[2019-04-14 06:46] LABS: Glucose,Whole Blood 78 mg/dL (75-99)
[2019-04-14] MEDS: INSULIN ASPART (NovoLOG) 100 UNIT/ML VIAL SQ SCH ×4 (06:50→20:51)
[2019-04-14 06:59] LABS: Basophils % (A) 1 %; Eosinophils # (A) 0.1 k/uL (0-0.7); Eosinophils % (A) 2 %; HCT 40.4 % (34.0-46.0); HGB 12.9 gm/dL (11.4-16.0); Lymphocytes # (A) 0.7 k/uL (1.0-4.8); Lymphocytes % (A) 13 %; MCH 29.3 pg (25.0-35.0); MCHC 31.8 g/dL (31.0-37.0); MCV 92.1 fL (80.0-100.0); Mean Platelet Volume 7.3; Monocytes # (A) 0.4 k/uL (0-1.0); Monocytes % (A) 8 %; Neutrophils # (A) 4.1 k/uL (1.3-7.7); Neutrophils % (A) 75 %; Platelet Count 301 k/uL (150-450); RBC 4.39 m/uL (3.80-5.40); RDW 14.7 % (11.5-15.5); WBC 5.4 k/uL (3.8-10.6)
[2019-04-14 07:17] LABS: Calcium 8.4 mg/dL (8.4-10.2); Potassium 4.4 mmol/L (3.5-5.1)
[2019-04-14] MEDS: MESALAMINE 400 MG PO SCH ×2 (08:15→20:39)
[2019-04-14] MEDS: APIXABAN 5 MG TAB PO SCH ×2 (08:18→20:40)
[2019-04-14] MEDS: CALCIUM ACETATE 667 MG CAP PO SCH (08:18)
[2019-04-14] MEDS: LORATADINE 10 MG TAB PO SCH (08:19)
[2019-04-14] MEDS: CALCIUM CARB-VIT D 500MG-200UN 1 EACH TAB PO SCH (08:19)
[2019-04-14] MEDS: MAGNESIUM OXIDE 400 MG TAB PO SCH ×2 (08:19→20:40)
[2019-04-14] MEDS: METOPROLOL TARTRATE 25 MG TAB PO SCH ×3 (08:19→20:40)
[2019-04-14] MEDS: LISINOPRIL 5 MG TAB PO SCH (08:19)
[2019-04-14] MEDS: FUROSEMIDE 10 MG/ML 4 ML VIAL IV SCH (08:19)
[2019-04-14] MEDS: MULTIVITAMINS, THERA 1 EACH TAB PO SCH (08:19)
[2019-04-14] MEDS: SPIRONOLACTONE 25 MG TAB PO SCH (08:19)
[2019-04-14 12:26] LABS: Glucose,Whole Blood 217 mg/dL (75-99)
--- NOTE | 2019-04-14 13:18 | P.PN ---
Subjective Progress Note Date: 04/14/19 This is a pleasant 73-year-old female who follows with Dr. Steel in the [place] office, she has history of chronic persistent atrial fibrillation, hypertension, diabetes, hyperlipidemia, hypothyroidism, nonischemic cardiomyopathy, she underwent a cardiac catheterization in May 2018 which revealed a normal coronary arteries, she has nonischemic cardiomyopathy, moderate MR, moderate TR, was recently in the hospital earlier this month with exacerbation of congestive heart failure as well as A. fib with RVR. She presented to [facility] on this occasion with symptoms of abdominal discomfort, she was found to be in atrial fibrillation with a rapid ventricular response, initiated on a Cardizem drip and transferred here. Patient had a recent CAT scan of the abdomen and pelvis which was negative for any acute process, the patient had an x-ray at [facility] which revealed suggestion of the left lower lobe infiltrate, she was initiated on IV antibiotics. Her lab work performed there, sodium 133, potassium 3.8, BUN 42 and creatinine 1.4, lipase was 13 lactic acid 1.8 troponin 0.05 white blood cell count 8.7, hemoglobin 13.2, platelet count 336. Chest x-ray shows overall stable findings on arrival here, cardiomegaly with small bilateral pleural effusions redemonstrated. EKG shows atrial fibrillation with moderately rapid ventricular response. Blood pressure 113/73 with a heart rate in the 90s to low 100s, 100% on 2 L of oxygen. Patient is a afebrile. White blood cell count 5.8, hemoglobin 12.0, platelet count 302. Sodium 135, potassium 4.5, BUN 41 and creatinine 1.2. Troponin 0.029. BNP level 49387, TSH 1.4. Troponin 0.029. At the time of my examination this morning, patient denies any abdominal discomfort, her breathing appears to be stable she is lying flat in bed. Denies any chest discomfort at present. 04/14/2019 Patient was seen and examined this morning, her heart rate was up in the 09/18/1939 range after receiving her beta arnaud this morning. We'll initiate amiodarone bolus and drip per protocol. Blood pressure 108/70 with a heart rate in the 130s, 90% on 2 L of oxygen. White blood cell count 5.4, hemoglobin 12.9, platelet count 301. Sodium 137, potassium 4.4, BUN 39 and creatinine 1.5. We will discontinue the IV Lasix today and start the patient from tomorrow on Lasix 40 mg by mouth daily. Objective - Vital Signs Vital signs: Vital Signs Temp 97.8 F 04/14/19 08:00 Pulse 96 04/14/19 12:00 Resp 16 04/14/19 12:00 BP 107/75 04/14/19 12:00 Pulse Ox 99 04/14/19 12:00 Intake & Output 04/13/19 04/14/19 04/14/19 18:59 06:59 18:59 Intake Total 838 240 Output Total 800 2500 1000 Balance 38 -2500 -760 Weight 59.8 kg Intake: Oral 838 240 Output: Urine 800 2100 900 Stool 400 100 Other: Voiding Method Bedside Commode Bedside Commode # Voids 1 1 # Bowel Movements 1 - Exam PHYSICAL EXAMINATION: GENERAL: 83-year-old female in no acute distress at the time of my examination HEENT: Head is atraumatic, normocephalic. Pupils equal, round. Sclera anicteric. Conjunctiva are clear. Mucous membranes of the mouth are moist. Neck is supple. There is no elevated jugular venous pressure. No carotid bruit is heard. HEART EXAMINATION: S1 and S2 irregularly irregular a systolic murmur is heard CHEST EXAMINATION: Lungs are clear with mild diminished air entry to the bases, fine crackles to the bases. ABDOMEN: Soft, nontender. Bowel sounds are heard. Colostomy in place No organomegaly noted. EXTREMITIES:[ 2+ peripheral pulses with no evidence of peripheral edema bilateral of small ulcerations noted, chronic NEUROLOGIC patient is awake, alert and oriented 3 . . - Labs CBC & Chem 7: 04/14/19 06:29 04/14/19 06:29 Labs: Abnormal Lab Results - Last 24 Hours (Table) 04/13/19 04/13/19 04/14/19 Range/Units 16:40 20:15 06:29 Lymphocytes # (1.0-4.8) k/uL BUN 39 H (7-17) mg/dL Creatinine 1.54 H (0.52-1.04) mg/dL POC Glucose (mg/dL) 292 H 160 H (75-99) mg/dL 04/14/19 04/14/19 Range/Units 06:29 11:56 Lymphocytes # 0.7 L (1.0-4.8) k/uL BUN (7-17) mg/dL Creatinine (0.52-1.04) mg/dL POC Glucose (mg/dL) 217 H (75-99) mg/dL Microbiology - Last 24 Hours (Table) 04/11/19 16:08 Blood Culture - Preliminary Blood No Growth after 48 hours Assessment and Plan Plan: Assessment and plan #1 abdominal discomfort #2 chronic persistent atrial fibrillation on Eliquis for anticoagulation #3 acute on chronic renal failure #4 systolic congestive heart failure acute on chronic #5 possible left lower lobe pneumonia #6 nonischemic cardio myopathy with documented ejection fraction of 20-25% by r ecent echo performed earlier this month. Patient did have a cardiac cath in 2018 which revealed normal coronary arteries. Plan We will start the patient on IV amiodarone today, discontinue IV Lasix, from tomorrow start the patient on Lasix 40 mg daily. DNP note has been reviewed, I agree with a documented findings and plan of care. Patient was seen and examined.
[2019-04-14] MEDS ORDERED: DEXTROSE 5% IN WATER 100 ML with AMIODARONE 150 MG IV ONE (13:30)
[2019-04-14] MEDS ORDERED: AMIODARONE 360 MG in DEXTROSE 5% IN WATER 200 ML IV ONE ×2 (13:30)
[2019-04-14] MEDS: AZITHROMYCIN 500 MG TAB PO SCH (15:33)
[2019-04-14 17:31] LABS: Glucose,Whole Blood 272 mg/dL (75-99)
[2019-04-14] MEDS: AMIODARONE 300 MG in DEXTROSE 5% IN WATER 250 ML IV SCH ×2 (19:37)
[2019-04-14] MEDS: ATORVASTATIN 10 MG TAB PO SCH (20:40)
[2019-04-14 21:04] LABS: Glucose,Whole Blood 118 mg/dL (75-99)
--- NOTE | 2019-04-14 23:22 | P.PN ---
Subjective Progress Note Date: 04/14/19 Principal diagnosis: Left lower lobe pneumonia Atrial fibrillation with rapid ventricular rate Patient is a 72-year-old female with known history of chronic atrial fibrillation on anticoagulation with Eliquis, CHF with systolic heart failure/nonischemic cardio myopathy, hypertension, hyperlipidemia and hypothyroidism as well as diabetes type 2 was initially presented to [facility] with complaints of abdominal discomfort and found have A. fib with RVR in the ER. Patient was started on Cardizem drip. Patient recently had CT abdomen and pelvis which was negative for any acute process. Patient had chest x-ray showed left lower lobe infiltrate. Patient otherwise denied any complaints of fever or chills. Patient was started on ceftriaxone and azithromycin and transferred to [facility] for further management. EKG showed atrial fibrillation. Laboratory data reviewed. Patient does have colostomy bag in place left side. 04/12/2019 Patient's breathing status is better today. Otherwise patient went into RVR and cardiology was consulted. No complaints of chest pain or worsening short of breath. No leg swelling. Tolerating oral diet. Patient is hypoglycemic. Insulin is on hold. We will workup for hypoglycemia with the patient continues to have low blood sugars. 04/13/2019 Patient is currently sitting in the chair comfortably. Complains of chest pain or worsening shortness of breath. Breathing status improved today. Patient was started on IV Lasix. BNP is elevated to 23,000. Chest x-ray showed congestion. Cardiology is following. Probably increase to 3 times a day. Hypoglycemia resolved. No fever no chills. Tolerating oral diet. 04/14/2019 Patient is currently sitting in a chair comfortably. IV Lasix has been changed to by mouth. Otherwise patient is still atrial fibrillation with RVR. Cardiology started on amiodarone drip. Continued on beta blockers. Denied any complains of chest pain or worsening short of breath. No nausea vomiting or abdominal pain or diarrhea. Otherwise patient is being continued on antibiotics for pneumonia which will be continued for total of 5 days. No other acute overnight issues. Current medications reviewed. Objective - Vital Signs Vital signs: Vital Signs Temp 98.4 F 04/14/19 19:04 Pulse 109 H 04/14/19 19:04 Resp 16 04/14/19 19:04 BP 109/78 04/14/19 19:04 Pulse Ox 99 04/14/19 19:04 Intake & Output 04/14/19 04/14/19 04/15/19 06:59 18:59 06:59 Intake Total 1000 120 Output Total 2500 1600 250 Balance -2500 -600 -130 Weight 59.8 kg Intake: Oral 1000 120 Output: Urine 2100 1450 250 Stool 400 150 Other: Voiding Method Bedside Commode Bedside Commode # Voids 1 1 # Bowel Movements 1 - Exam PHYSICAL EXAMINATION: Patient is lying in the bed comfortably, no acute distress, awake alert and oriented. Mild cognitive impairment. HEENT: Normocephalic. Neck is supple. Pupils reactive. Nostrils clear. Oral cavity is moist. Ears reveal no drainage. Neck reveals no JVD, carotid bruits, or thyromegaly. CHEST EXAMINATION: Trachea is central. Symmetrical expansion. Lung dior clear to auscultation and percussion. CARDIAC: Normal S1, S2 with no gallops. No murmurs. Irregularly irregular rhythm. ABDOMEN: Soft. Bowel sounds normal. No organomegaly. No abdominal bruits. Colostomy bag in place. Extremities: reveal no edema. No clubbing or cyanosis Neurologically awake, alert, oriented x3 with well-coordinated movements. No focal deficits noted Skin: No rash or skin lesions. Psychiatric: Coperative. Nonsuicidal Musculoskeletal: No joint swelling or deformity. Normal range of motion. - Labs CBC & Chem 7: 04/14/19 06:29 04/14/19 06:29 Labs: Abnormal Lab Results - Last 24 Hours (Table) 04/14/19 04/14/19 04/14/19 Range/Units 06:29 06:29 11:56 Lymphocytes # 0.7 L (1.0-4.8) k/uL BUN 39 H (7-17) mg/dL Creatinine 1.54 H (0.52-1.04) mg/dL POC Glucose (mg/dL) 217 H (75-99) mg/dL 04/14/19 04/14/19 Range/Units 17:06 20:50 Lymphocytes # (1.0-4.8) k/uL BUN (7-17) mg/dL Creatinine (0.52-1.04) mg/dL POC Glucose (mg/dL) 272 H 118 H (75-99) mg/dL Microbiology - Last 24 Hours (Table) 08/24/19 16:08 Blood Culture - Preliminary Blood No Growth after 72 hours Assessment and Plan Assessment: Left lower lobe pneumonia Acute on chronic CHF with systolic dysfunction. Lasix changed to by mouth. Persistent Atrial fibrillation with rapid regular rate. Off Cardizem drip. Metoprolol increased to 3 times a day. Started on emergency department today. Hypoglycemia likely due to insulin at home. Improving now. Chronic atrial fibrillation on anticoagulation with Eliquis Diabetes type 2 Hypertension Hyperlipidemia Chronic CHF with systolic dysfunction Nonischemic cardiomyopathy Hypothyroidism Colostomy bag with history of colectomy. Plan: Patient be continued on antibiotics in form of ceftriaxone and azithromycin. Continue with metoprolol and telemetry monitoring. Patient continues to be in fibrillation with RVR. Started on amiodarone drip. Cardiology is following. Elevated BNP. Continue the home medications and follow closely. Accu-Cheks and insulin sliding scale. Colostomy bag care. Further recommendations based on clinical course. Prognosis is guarded. Time with Patient: Greater than 30
[2019-04-15] MEDS: LEVOTHYROXINE 25 MCG TAB PO SCH (06:08)
[2019-04-15 06:27] LABS: Glucose,Whole Blood 130 mg/dL (75-99)
[2019-04-15] MEDS: INSULIN ASPART (NovoLOG) 100 UNIT/ML VIAL SQ SCH ×4 (06:32→21:55)
[2019-04-15] MEDS: AMIODARONE 300 MG in DEXTROSE 5% IN WATER 250 ML IV SCH ×2 (06:33)
[2019-04-15] MEDS: APIXABAN 5 MG TAB PO SCH ×2 (08:14→21:55)
[2019-04-15] MEDS: MULTIVITAMINS, THERA 1 EACH TAB PO SCH (08:14)
[2019-04-15] MEDS: LORATADINE 10 MG TAB PO SCH (08:14)
[2019-04-15] MEDS: MAGNESIUM OXIDE 400 MG TAB PO SCH ×2 (08:14→21:55)
[2019-04-15] MEDS: LISINOPRIL 5 MG TAB PO SCH (08:14)
[2019-04-15] MEDS: CALCIUM CARB-VIT D 500MG-200UN 1 EACH TAB PO SCH (08:14)
[2019-04-15] MEDS: CALCIUM ACETATE 667 MG CAP PO SCH (08:14)
[2019-04-15] MEDS: FUROSEMIDE 40 MG TAB PO SCH (08:14)
[2019-04-15] MEDS: SPIRONOLACTONE 25 MG TAB PO SCH (08:15)
[2019-04-15] MEDS: METOPROLOL TARTRATE 25 MG TAB PO SCH ×3 (08:15→21:55)
[2019-04-15] MEDS: MESALAMINE 400 MG PO SCH ×2 (08:56→22:09)
[2019-04-15 09:21] LABS: Calcium 8.5 mg/dL (8.4-10.2)
[2019-04-15 09:36] LABS: Magnesium 2.1 mg/dL (1.6-2.3); Potassium 5.5 mmol/L (3.5-5.1)
[2019-04-15 12:00] LABS: Glucose,Whole Blood 417 mg/dL (75-99)
[2019-04-15 12:01] LABS: Glucose,Whole Blood 376 mg/dL (75-99)
--- NOTE | 2019-04-15 15:01 | P.PN ---
Subjective Progress Note Date: 04/15/19 This is a pleasant 73-year-old female who follows with Dr. Steel in the [place] office, she has history of chronic persistent atrial fibrillation, hypertension, diabetes, hyperlipidemia, hypothyroidism, nonischemic cardiomyopathy, she underwent a cardiac catheterization in May 2018 which revealed a normal coronary arteries, she has nonischemic cardiomyopathy, moderate MR, moderate TR, was recently in the hospital earlier this month with exacerbation of congestive heart failure as well as A. fib with RVR. She presented to [facility] on this occasion with symptoms of abdominal discomfort, she was found to be in atrial fibrillation with a rapid ventricular response, initiated on a Cardizem drip and transferred here. Patient had a recent CAT scan of the abdomen and pelvis which was negative for any acute process, the patient had an x-ray at [facility] which revealed suggestion of the left lower lobe infiltrate, she was initiated on IV antibiotics. Her lab work performed there, sodium 133, potassium 3.8, BUN 42 and creatinine 1.4, lipase was 13 lactic acid 1.8 troponin 0.05 white blood cell count 8.7, hemoglobin 13.2, platelet count 336. Chest x-ray shows overall stable findings on arrival here, cardiomegaly with small bilateral pleural effusions redemonstrated. EKG shows atrial fibrillation with moderately rapid ventricular response. Blood pressure 113/73 with a heart rate in the 90s to low 100s, 100% on 2 L of oxygen. Patient is a afebrile. White blood cell count 5.8, hemoglobin 12.0, platelet count 302. Sodium 135, potassium 4.5, BUN 41 and creatinine 1.2. Troponin 0.029. BNP level 88533, TSH 1.4. Troponin 0.029. At the time of my examination this morning, patient denies any abdominal discomfort, her breathing appears to be stable she is lying flat in bed. Denies any chest discomfort at present. 04/14/2019 Patient was seen and examined this morning, her heart rate was up in the 09/18/1939 range after receiving her beta arnaud this morning. We'll initiate amiodarone bolus and drip per protocol. Blood pressure 108/70 with a heart rate in the 130s, 90% on 2 L of oxygen. White blood cell count 5.4, hemoglobin 12.9, platelet count 301. Sodium 137, potassium 4.4, BUN 39 and creatinine 1.5. We will discontinue the IV Lasix today and start the patient from tomorrow on Lasix 40 mg by mouth daily. 04/15/2019 Patient was seen and examined this morning, she continues to be in atrial fibrillation but her heart rate today is under much better control. IV amiodarone drip will be discontinued and the patient will be started on oral amiodarone today. We will continue to monitor for another 24 hours and plan for possible discharge in the morning if stable. Creatinine has improved today, 1.4 potassium 5.5 we will discontinue her Aldactone. Objective - Vital Signs Vital signs: Vital Signs Temp 97.3 F L 04/15/19 12:10 Pulse 86 04/15/19 12:10 Resp 21 04/15/19 12:10 BP 111/61 04/15/19 12:10 Pulse Ox 100 04/15/19 12:10 Intake & Output 04/14/19 04/15/19 04/15/19 18:59 06:59 18:59 Intake Total 1000 370 240 Output Total 2562 822 4805 Balance -600 70 -1185 Weight 59.7 kg Intake: Intake, IV Titration 250 Amount Amiodarone 300 mg In 250 Dextrose 5% in Water 250 ml @ 0.5 MG/MIN 25 mls/hr IV .Q10H [facility] Rx#: [id number] Oral 1000 120 240 Output: Urine 5862 458 6011 Stool 150 50 350 Other: Voiding Method Bedside Commode Bedside Commode Bedside Commode # Voids 1 - Exam PHYSICAL EXAMINATION: GENERAL: 83-year-old female in no acute distress at the time of my examination HEENT: Head is atraumatic, normocephalic. Pupils equal, round. Sclera anicteric. Conjunctiva are clear. Mucous membranes of the mouth are moist. Neck is supple. There is no elevated jugular venous pressure. No carotid bruit is heard. HEART EXAMINATION: S1 and S2 irregularly irregular a systolic murmur is heard CHEST EXAMINATION: Lungs are clear with mild diminished air entry to the bases, fine crackles to the bases. ABDOMEN: Soft, nontender. Bowel sounds are heard. Colostomy in place No organomegaly noted. EXTREMITIES:[ 2+ peripheral pulses with no evidence of peripheral edema bilat eral of small ulcerations noted, chronic NEUROLOGIC patient is awake, alert and oriented 3 . . - Labs CBC & Chem 7: 04/14/19 06:29 04/15/19 07:19 Labs: Abnormal Lab Results - Last 24 Hours (Table) 04/14/19 04/14/19 04/15/19 Range/Units 17:06 20:50 06:25 Sodium (137-145) mmol/L Potassium (3.5-5.1) mmol/L Chloride (98-107) mmol/L BUN (7-17) mg/dL Creatinine (0.52-1.04) mg/dL Glucose (74-99) mg/dL POC Glucose (mg/dL) 272 H 118 H 130 H (75-99) mg/dL 04/15/19 04/15/19 04/15/19 Range/Units 07:19 11:39 11:50 Sodium 134 L (137-145) mmol/L Potassium 5.5 H (3.5-5.1) mmol/L Chloride 97 L (98-107) mmol/L BUN 41 H (7-17) mg/dL Creatinine 1.49 H (0.52-1.04) mg/dL Glucose 139 H (74-99) mg/dL POC Glucose (mg/dL) 417 H 376 H (75-99) mg/dL Microbiology - Last 24 Hours (Table) 04/11/19 16:08 Blood Culture - Preliminary Blood No Growth after 72 hours Assessment and Plan Plan: Assessment and plan #1 abdominal discomfort #2 chronic persistent atrial fibrillation on Eliquis for anticoagulation #3 acute on chronic renal failure #4 systolic congestive heart failure acute on chronic #5 possible left lower lobe pneumonia #6 nonischemic cardio myopathy with documented ejection fraction of 20-25% by recent echo performed earlier this month. Patient did have a cardiac cath in 2018 which revealed normal coronary arteries. Plan IV amiodarone has been discontinued, we will start the patient on oral amiodarone today, hold the Aldactone because of elevated potassium today, creatinine today also was down to 1.4 we will check her labs in the morning and plan for possible discharge tomorrow if stable. DNP note has been reviewed, I agree with a documented findings and plan of care. Patient was seen and examined.
[2019-04-15] MEDS: AZITHROMYCIN 500 MG TAB PO SCH (16:26)
[2019-04-15] MEDS: AMIODARONE 200 MG TAB PO SCH ×2 (16:26→21:55)
[2019-04-15 18:06] LABS: Glucose,Whole Blood 228 mg/dL (75-99)
[2019-04-15 20:25] LABS: Glucose,Whole Blood 243 mg/dL (75-99)
[2019-04-15] MEDS: ATORVASTATIN 10 MG TAB PO SCH (21:57)
[2019-04-16] MEDS: LEVOTHYROXINE 25 MCG TAB PO SCH (06:15)
[2019-04-16 06:28] LABS: Glucose,Whole Blood 132 mg/dL (75-99)
[2019-04-16] MEDS: INSULIN ASPART (NovoLOG) 100 UNIT/ML VIAL SQ SCH ×2 (06:36→13:11)
[2019-04-16 07:46] VITALS: TEMP 97.5
[2019-04-16] MEDS: MAGNESIUM OXIDE 400 MG TAB PO SCH (09:23)
[2019-04-16] MEDS: CALCIUM CARB-VIT D 500MG-200UN 1 EACH TAB PO SCH (09:23)
[2019-04-16] MEDS: APIXABAN 5 MG TAB PO SCH (09:24)
[2019-04-16] MEDS: FUROSEMIDE 40 MG TAB PO SCH (09:24)
[2019-04-16] MEDS: LISINOPRIL 5 MG TAB PO SCH (09:24)
[2019-04-16] MEDS: LORATADINE 10 MG TAB PO SCH (09:24)
[2019-04-16] MEDS: METOPROLOL TARTRATE 25 MG TAB PO SCH ×2 (09:54→16:41)
[2019-04-16] MEDS: AMIODARONE 200 MG TAB PO SCH ×2 (09:54→16:41)
[2019-04-16] MEDS: CALCIUM ACETATE 667 MG CAP PO SCH (09:55)
[2019-04-16] MEDS: MULTIVITAMINS, THERA 1 EACH TAB PO SCH (09:55)
[2019-04-16] MEDS: MESALAMINE 400 MG PO SCH (09:59)
[2019-04-16 10:26] VITALS: RESP 20
--- NOTE | 2019-04-16 11:24 | P.PN ---
Subjective Progress Note Date: 04/16/19 This is a pleasant 73-year-old female who follows with Dr. Hu in the [place] office, she has history of chronic persistent atrial fibrillation, hypertension, diabetes, hyperlipidemia, hypothyroidism, nonischemic cardiomyopathy, she underwent a cardiac catheterization in May 2018 which revealed a normal coronary arteries, she has nonischemic cardiomyopathy, moderate MR, moderate TR, was recently in the hospital earlier this month with exacerbation of congestive heart failure as well as A. fib with RVR. She presented to [facility] on this occasion with symptoms of abdominal discomfort, she was found to be in atrial fibrillation with a rapid ventricular response, initiated on a Cardizem drip and transferred here. Patient had a recent CT scan of the abdomen and pelvis which was negative for any acute process, the patient had an x-ray at [facility] which revealed suggestion of the left lower lobe infiltrate, she was initiated on IV antibiotics. Her lab work performed there, sodium 133, potassium 3.8, BUN 42 and creatinine 1.4, lipase was 13 lactic acid 1.8 troponin 0.05 white blood cell count 8.7, hemoglobin 13.2, platelet count 336. Chest x-ray showed overall stable findings on arrival here, cardiomegaly with small bilateral pleural effusions redemonstrated. EKG showed atrial fibrillation with moderately rapid ventricular response. Blood pressure 113/73 with a heart rate in the 90s to low 100s, 100% on 2 L of oxygen. Patient is a afebrile. White blood cell count 5.8, hemoglobin 12.0, platelet count 302. Sodium 135, potassium 4.5, BUN 41 and creatinine 1.2. Troponin 0.029. BNP level 10972, TSH 1.4. Troponin 0.029. 04/16/2019 Patient was seen and examined this morning. She continues to be in atrial fibrillation with a controlled ventricular response. She has been on oral amiodarone 200 mg by mouth 3 times a day. No labs drawn today. Labs yesterday showed a creatinine of 1.4 and potassium of 5.5 and her Aldactone was d iscontinued. Upon examination, patient is resting comfortably in bed. She feels her breathing has improved. She denies any chest discomfort or palpitations. She continues to have lower extremity edema. She denies any abdominal discomfort today. Objective - Vital Signs Vital signs: Vital Signs Temp 97.5 F L 08/29/19 07:42 Pulse 101 H 04/16/19 09:14 Resp 20 04/16/19 09:14 BP 110/70 04/16/19 07:42 Pulse Ox 96 04/16/19 08:41 Intake & Output 04/15/19 04/16/19 04/16/19 18:59 06:59 18:59 Intake Total 240 240 240 Output Total 1425 1150 Balance -1185 -910 240 Weight 59.8 kg Intake: Oral 240 240 240 Output: Urine 1075 850 Stool 350 300 Other: Voiding Method Bedside Commode Bedside Commode Bedside Commode # Voids 3 # Bowel Movements 1 - Exam PHYSICAL EXAMINATION: HEENT: Head is atraumatic, normocephalic. Pupils equal, round. Neck is supple. There is no elevated jugular venous pressure. Heart of hearing HEART EXAMINATION: Heart sounds irregular irregular, S1 and S2 with a systolic murmur. CHEST EXAMINATION: Lungs reveal mildly diminished air entry bilateral bases with faint crackles left base. No chest wall tenderness is noted on palpation or with deep breathing. ABDOMEN: Soft, nontender. Bowel sounds are heard. Colostomy in place. No organomegaly noted. EXTREMITIES: 2+ peripheral pulses with evidence of mild peripheral edema with chronic small ulcerations noted. NEUROLOGIC patient is awake, alert and oriented x3. . - Labs CBC & Chem 7: 04/14/19 06:29 04/16/19 10:46 Labs: Abnormal Lab Results - Last 24 Hours (Table) 04/15/19 04/15/19 04/15/19 Range/Units 11:39 11:50 17:02 POC Glucose (mg/dL) 417 H 376 H 228 H (75-99) mg/dL 04/15/19 04/16/19 Range/Units 20:19 05:58 POC Glucose (mg/dL) 243 H 132 H (75-99) mg/dL Microbiology - Last 24 Hours (Table) 04/11/19 16:08 Blood Culture - Preliminary Blood No Growth after 96 hours Assessment and Plan Assessment: #1 abdominal discomfort #2 chronic persistent atrial fibrillation on Eliquis for anticoagulation #3 acute on chronic renal failure #4 systolic congestive heart failure acute on chronic #5 possible left lower lobe pneumonia #6 nonischemic cardio myopathy with documented ejection fraction of 20-25% by recent echo performed earlier this month. Patient did have a cardiac cath in 2018 which revealed normal coronary arteries. 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 BMP done this morning shows a sodium of 136, potassium is improved at 5.1 and a BUN of 42 and creatinine 1.38 which are somewhat better compared to yesterday. From my perspective, patient could be discharged home when cleared by primary will follow-up as an outpatient. Otherwise, we'll continue to follow the patient during this admission and provide further recommendations accordingly. [employer] note has been reviewed, I agree with a documented findings and plan of care. Patient was seen and examined.
[2019-04-16 11:55] LABS: Calcium 8.5 mg/dL (8.4-10.2); Potassium 5.1 mmol/L (3.5-5.1)
[2019-04-16 12:18] LABS: Glucose,Whole Blood 236 mg/dL (75-99)
[2019-04-16 12:31] VITALS: BP 124/72; PULSE 82
--- NOTE | 2019-04-16 14:52 | P.PN ---
Subjective Progress Note Date: 04/15/19 Principal diagnosis: Left lower lobe pneumonia Atrial fibrillation with rapid ventricular rate Patient is a 72-year-old female with known history of chronic atrial fibrillation on anticoagulation with Eliquis, CHF with systolic heart failure/nonischemic cardio myopathy, hypertension, hyperlipidemia and hypothyroidism as well as diabetes type 2 was initially presented to [facility] with complaints of abdominal discomfort and found have A. fib with RVR in the ER. Patient was started on Cardizem drip. Patient recently had CT abdomen and pelvis which was negative for any acute process. Patient had chest x-ray showed left lower lobe infiltrate. Patient otherwise denied any complaints of fever or chills. Patient was started on ceftriaxone and azithromycin and transferred to [facility] for further management. EKG showed atrial fibrillation. Laboratory data reviewed. Patient does have colostomy bag in place left side. 04/12/2019 Patient's breathing status is better today. Otherwise patient went into RVR and cardiology was consulted. No complaints of chest pain or worsening short of breath. No leg swelling. Tolerating oral diet. Patient is hypoglycemic. Insulin is on hold. We will workup for hypoglycemia with the patient continues to have low blood sugars. 04/13/2019 Patient is currently sitting in the chair comfortably. Complains of chest pain or worsening shortness of breath. Breathing status improved today. Patient was started on IV Lasix. BNP is elevated to 23,000. Chest x-ray showed congestion. Cardiology is following. Probably increase to 3 times a day. Hypoglycemia resolved. No fever no chills. Tolerating oral diet. 04/14/2019 Patient is currently sitting in a chair comfortably. IV Lasix has been changed to by mouth. Otherwise patient is still atrial fibrillation with RVR. Cardiology started on amiodarone drip. Continued on beta blockers. Denied any complains of chest pain or worsening short of breath. No nausea vomiting or abdominal pain or diarrhea. Otherwise patient is being continued on antibiotics for pneumonia which will be continued for total of 5 days. No other acute overnight issues. 04/15/2019 Patient continues to be in atrial fibrillation but heart rate is better controlled. Amiodarone was changed to by mouth today. Currently on oral Lasix as well. Patient will be monitored for another 24 hours and anticipate discharge. Cardiology is on board. Current medications reviewed.04/15/2019 Objective - Vital Signs Vital signs: Vital Signs Temp 98.4 F 04/15/19 20:07 Pulse 89 04/15/19 20:07 Resp 18 04/15/19 20:07 BP 109/84 04/15/19 20:07 Pulse Ox 95 04/15/19 20:07 Intake & Output 04/15/19 04/15/19 04/16/19 06:59 18:59 06:59 Intake Total 370 240 240 Output Total 300 1425 550 Balance 70 -1185 -310 Weight 59.7 kg Intake: Intake, IV Titration 250 Amount Amiodarone 300 mg In 250 Dextrose 5% in Water 250 ml @ 0.5 MG/MIN 25 mls/hr IV .Q10H [facility] Rx#: [id number] Oral 120 240 240 Output: Urine 250 1075 250 Stool 50 350 300 Other: Voiding Method Bedside Commode Bedside Commode Bedside Commode # Voids 1 1 # Bowel Movements 1 - Exam PHYSICAL EXAMINATION: Patient is lying in the bed comfortably, no acute distress, awake alert and oriented. Mild cognitive impairment. HEENT: Normocephalic. Neck is supple. Pupils reactive. Nostrils clear. Oral cavity is moist. Ears reveal no drainage. Neck reveals no JVD, carotid bruits, or thyromegaly. CHEST EXAMINATION: Trachea is central. Symmetrical expansion. Lung dior clear to auscultation and percussion. CARDIAC: Normal S1, S2 with no gallops. No murmurs. Irregularly irregular rhythm. ABDOMEN: Soft. Bowel sounds normal. No organomegaly. No abdominal bruits. Colostomy bag in place. Extremities: reveal no edema. No clubbing or cyanosis Neurologically awake, alert, oriented x3 with well-coordinated movements. No focal deficits noted Skin: No rash or skin lesions. Psychiatric: Coperative. Nonsuicidal Musculoskeletal: No joint swelling or deformity. Normal range of motion. - Labs CBC & Chem 7: 04/14/19 06:29 04/16/19 10:46 Labs: Abnormal Lab Results - Last 24 Hours (Table) 04/15/19 04/15/19 04/15/19 Range/Units 06:25 07:19 11:39 Sodium 134 L (137-145) mmol/L Potassium 5.5 H (3.5-5.1) mmol/L Chloride 97 L (98-107) mmol/L BUN 41 H (7-17) mg/dL Creatinine 1.49 H (0.52-1.04) mg/dL Glucose 139 H (74-99) mg/dL POC Glucose (mg/dL) 130 H 417 H (75-99) mg/dL 04/15/19 04/15/19 04/15/19 Range/Units 11:50 17:02 20:19 Sodium (137-145) mmol/L Potassium (3.5-5.1) mmol/L Chloride (98-107) mmol/L BUN (7-17) mg/dL Creatinine (0.52-1.04) mg/dL Glucose (74-99) mg/dL POC Glucose (mg/dL) 376 H 228 H 243 H (75-99) mg/dL Microbiology - Last 24 Hours (Table) 04/11/19 16:08 Blood Culture - Preliminary Blood No Growth after 96 hours Assessment and Plan Assessment: Left lower lobe pneumonia Acute on chronic CHF with systolic dysfunction. Lasix changed to by mouth. Oral amiodarone. Persistent Atrial fibrillation with rapid regular rate. Off Cardizem drip. Metoprolol increased to 3 times a day. Started on emergency department today. Hypoglycemia likely due to insulin at home. Improving now. Chronic atrial fibrillation on anticoagulation with Eliquis Diabetes type 2 Hypertension Hyperlipidemia Chronic CHF with systolic dysfunction Nonischemic cardiomyopathy Hypothyroidism Colostomy bag with history of colectomy. Plan: Patient be continued on antibiotics in form of ceftriaxone and azithromycin. Continue with metoprolol and telemetry monitoring. Patient continues to be in fibrillation with RVR. Started on amiodarone drip. chnaged to PO today. Cardiology is following. Elevated BNP. Continue the home medications and follow closely. Accu-Cheks and insulin sliding scale. Colostomy bag care. Further recommendations based on clinical course. Prognosis is guarded. Time with Patient: Greater than 30
--- NOTE | 2019-04-16 14:55 | P.DS ---
Providers Date of admission: 04/11/19 15:17 Expected date of discharge: 04/16/19 Attending physician: Naun Colón Consults: 04/12/19 18:10 Consult Physician Routine Consulting Provider: Johnson Barcenas Consult Reason/Comments: a fib rvr Do you want consulting provider notified?: Yes Primary care physician: Adolfo Wang Hospital Course: Discharge diagnosis. Left lower lobe pneumonia. Completed 5 days of antibiotics. Acute on chronic CHF with systolic dysfunction. Lasix changed to by mouth. Also started on Oral amiodarone. Persistent Atrial fibrillation with rapid regular rate. Off Cardizem drip. Metoprolol increased to 3 times a day. Remains in atrial fibrillation. Hypoglycemia likely due to insulin at home. Improving now. Chronic atrial fibrillation on anticoagulation with Eliquis Diabetes type 2 Hypertension Hyperlipidemia Chronic CHF with systolic dysfunction Nonischemic cardiomyopathy Hypothyroidism Colostomy bag with history of colectomy. Hospital course Patient is a 72-year-old female with known history of chronic atrial fibrillation on anticoagulation with Eliquis, CHF with systolic heart failure/nonischemic cardio myopathy, hypertension, hyperlipidemia and hypothyroidism as well as diabetes type 2 was initially presented to [facility] with complaints of abdominal discomfort and found have A. fib with RVR in the ER. Patient was started on Cardizem drip. Patient recently had CT abdomen and pelvis which was negative for any acute process. Patient had chest x-ray showed left lower lobe infiltrate. Patient otherwise denied any complaints of fever or chills. Patient was started on ceftriaxone and azithromycin and transferred to [facility] for further management. EKG showed atrial fibrillation. Laboratory data reviewed. Patient does have colostomy bag in place left side. 04/12/2019 Patient's breathing status is better today. Otherwise patient went into RVR and cardiology was consulted. No complaints of chest pain or worsening short of breath. No leg swelling. Tolerating oral diet. Patient is hypoglycemic. Insulin is on hold. We will workup for hypoglycemia with the patient continues to have low blood sugars. 04/13/2019 Patient is currently sitting in the chair comfortably. Complains of chest pain or worsening shortness of breath. Breathing status improved today. Patient was started on IV Lasix. BNP is elevated to 23,000. Chest x-ray showed congestion. Cardiology is following. Probably increase to 3 times a day. Hypoglycemia resolved. No fever no chills. Tolerating oral diet. 04/14/2019 Patient is currently sitting in a chair comfortably. IV Lasix has been changed to by mouth. Otherwise patient is still atrial fibrillation with RVR. Cardiology started on amiodarone drip. Continued on beta blockers. Denied any complains of chest pain or worsening short of breath. No nausea vomiting or abdominal pain or diarrhea. Otherwise patient is being continued on antibiotics for pneumonia which will be continued for total of 5 days. No other acute overnight issues. 04/15/2019 Patient continues to be in atrial fibrillation but heart rate is better controlled. Amiodarone was changed to by mouth today. Currently on oral Lasix as well. Patient will be monitored for another 24 hours and anticipate discharge. Cardiology is on board. 04/16/2019 Patient's heart rate is better controlled. Continued on metoprolol 3 times daily along with amiodarone and Lasix. Patient completed antibiotic course for possible pneumonia for 5 days. Patient otherwise denied any complaints of chest pain or shortness of breath. No other acute overnight issues. No dizziness or lightheadedness. Stable to be discharged back to rehab. PHYSICAL EXAMINATION: Patient is lying in the bed comfortably, no acute distress, awake alert and oriented. Mild cognitive impairment. HEENT: Normocephalic. Neck is supple. Pupils reactive. Nostrils clear. Oral cavity is moist. Ears reveal no drainage. Neck reveals no JVD, carotid bruits, or thyromegaly. CHEST EXAMINATION: Trachea is central. Symmetrical expansion. Lung dior clear to auscultation and percussion. CARDIAC: Normal S1, S2 with no gallops. No murmurs. Irregularly irregular rhythm. ABDOMEN: Soft. Bowel sounds normal. No organomegaly. No abdominal bruits. Colostomy bag in place. Extremities: reveal no edema. No clubbing or cyanosis Neurologically awake, alert, oriented x2-3 with well-coordinated movements. No focal deficits noted. Baseline cognitive impairment Skin: No rash or skin lesions. Psychiatric: Coperative. Nonsuicidal Musculoskeletal: No joint swelling or deformity. Normal range of motion. Vital Signs 04/16/19 04/16/19 04/16/19 07:42 07:45 08:41 Temperature 97.5 F L Pulse Rate [ 101 H 100 [employer] ] Respiratory 24 Rate Blood Pressure 110/70 [Right Arm] O2 Sat by Pulse 100 96 Oximetry 04/16/19 04/16/19 09:14 12:27 Temperature 97.5 F L Pulse Rate [ 101 H 82 [employer] ] Respiratory 20 20 Rate Blood Pressure 124/72 [Right Arm] O2 Sat by Pulse 100 Oximetry Total time taken greater than 35 minutes including 18 minutes for counseling and coordination of care. Patient Condition at Discharge: Fair Plan - Discharge Summary Discharge Rx Participant: No New Discharge Prescriptions: New Amiodarone [Cordarone] 200 mg PO TID #30 tab Apixaban [Eliquis] 5 mg PO BID #60 tab Furosemide [Lasix] 40 mg PO DAILY #30 tab Metoprolol Tartrate [Lopressor] 25 mg PO TID #90 tab Continue Multivitamins, Thera [Multivitamin (formulary)] 1 tab PO DAILY Atorvastatin [Lipitor] 10 mg PO HS Calcium Carbonate/Vitamin D3 [Calcium 600-Vit D3 400 Tablet] 1 tab PO DAILY Magnesium Oxide [Mag-Ox] 400 mg PO BID Levothyroxine Sodium [Synthroid] 25 mcg PO DAILY Calcium Acetate [PhosLo] 667 mg PO DAILY Loratadine 10 mg PO DAILY Mesalamine [Delzicol] 400 mg PO BID Lisinopril [Zestril] 5 mg PO DAILY #30 tablet INSULIN LISPRO (humaLOG) [humaLOG] See Protocol SQ DIRECTED Discontinued Metoprolol Tartrate [Lopressor] 25 mg PO BID Apixaban [Eliquis] 2.5 mg PO BID #60 tablet Furosemide [Lasix] 40 mg PO BID@0900,1600 #60 tab Discharge Medication List Atorvastatin [Lipitor] 10 mg PO HS 06/03/18 [History] Calcium Acetate [PhosLo] 667 mg PO DAILY 06/03/18 [History] Calcium Carbonate/Vitamin D3 [Calcium 600-Vit D3 400 Tablet] 1 tab PO DAILY 06/03/18 [History] Levothyroxine Sodium [Synthroid] 25 mcg PO DAILY 06/03/18 [History] Magnesium Oxide [Mag-Ox] 400 mg PO BID 06/03/18 [History] Multivitamins, Thera [Multivitamin (formulary)] 1 tab PO DAILY 06/03/18 [History] Loratadine 10 mg PO DAILY 03/31/19 [History] Mesalamine [Delzicol] 400 mg PO BID 03/31/19 [History] Lisinopril [Zestril] 5 mg PO DAILY #30 tablet 04/03/19 [Rx] INSULIN LISPRO (humaLOG) [humaLOG] See Protocol SQ DIRECTED 04/11/19 [History] Amiodarone [Cordarone] 200 mg PO TID #30 tab 04/16/19 [Rx] Apixaban [Eliquis] 5 mg PO BID #60 tab 04/16/19 [Rx] Furosemide [Lasix] 40 mg PO DAILY #30 tab 04/16/19 [Rx] Metoprolol Tartrate [Lopressor] 25 mg PO TID #90 tab 04/16/19 [Rx] Follow up Appointment(s)/Referral(s): David Hu MD [STAFF PHYSICIAN] - 1 Week Adolfo Wang MD [Primary Care Provider] - 1-2 days Residential [facility] [NON-STAFF] - As Needed Activity/Diet/Wound Care/Special Instructions: [facility] in [place] for rehab Ostomy Care Recommendations for Transfer: [facility] Swift [facility] the [facility] Last pouching system change: 04.15.2019 Convatec one piece cut to fit with filter appliance #[id number] (four from the hospital provided) No Sting prep pads (10) Ostomy powder (One) Discharge Disposition: HOME WITH HOME HEALTH SERVICES
[2019-04-16] MEDS: AZITHROMYCIN 500 MG TAB PO SCH (16:42)
--- NOTE | 2019-04-21 14:01 | CDI ---
Documentation Clarification Form Date: 04/21/19 From: Stephanie Jain Phone: If you have a question regarding this query, please contact Belinda Pérez at [phone] between 8am and 5pm. Admit Date: 04/11/2019 3:17:00 PM Patient Name: Sophia Swift Visit Number: [id number] Discharge Date: 04/16/2019 4:38:00 PM ATTENTION: The Clinical Documentation Specialists (CDI) and [facility] Coding Staff appreciate your assistance in clarifying documentation. Please respond to the clarification below the line at the bottom and electronically sign. The CDI & [facility] Coding staff will review the response and follow-up if needed. Please note: Queries are made part of the Legal Health Record. If you have any questions, please contact the author of this message via ITS. Dr. Naun Colón Patient was admitted with pneumonia and atrial fibrillation. History/Risk Factors: Hypertension and diabetes Clinical Indicators: Decreased GFR, Current BUN/CR/GFR: 41/1.22/44 Discharge BUN/CR/GFR: 42/1.38/37 Patients Baseline BUN/CR/GFR: Not documented. Treatment: IVF: 10% Dextrose Water In order to capture the severity of condition, please clarify if the condition signifies: CKD Stage 1 (GFR > 90) CKD Stage 2 (GFR 60-89) CKD Stage 3 (GFR 30-59) CKD Stage 4 (GFR 15-29) CKD Stage 5 (GFR <15) ESRD Other, please specify Unable to determine CKD Stage 3 MTDD
--- NOTE | 2019-04-21 14:12 | CDI ---
Documentation Clarification Form Date: 04/21/2019 2:10:00 PM From: Stephanie Jain Phone: If you have a question regarding this query, please contact Deirdre Pérez at [phone] between 8am and 5pm. Admit Date: 04/11/2019 3:17:00 PM Patient Name: Sophia Swift Visit Number: [id number] Discharge Date: 04/16/2019 4:38:00 PM ATTENTION: The Clinical Documentation Specialists (CDI) and [facility] Coding Staff appreciate your assistance in clarifying documentation. Please respond to the clarification below the line at the bottom and electronically sign. The CDI & [facility] Coding staff will review the response and follow-up if needed. Please note: Queries are made part of the Legal Health Record. If you have any questions, please contact the author of this message via ITS. Dr. Naun Colón Chronic bilateral small ulceration is documented in the extremities under physical examination in the cardiology consult note and progress notes. Venous ulcer stage II of the right posterior winkler is documented in the nursing documentation. Patient history/risk factors: Diabetes Clinical Indicators: Erythema, yellow drainage and marga-wound maceration is documented in the nursing documentation. Treatment: Dressing with anti-microbial silver post-op foam and elastic wrap. In your professional opinion, can the etiology and severity of the wound be further specified as one of the following? Etiology: Pressure ulcer Non-pressure chronic ulcer due to diabetes Non-pressure chronic ulcer due to arterial insufficiency Non-pressure chronic ulcer due to venous insufficiency Non-pressure chronic ulcer due to trauma Other, Please specify Unable to determine Severity: Limited to breakdown of skin With fat layer exposed With necrosis of muscle With necrosis of bone Other, Please specify Unable to determine Non-pressure chronic ulcer due to venous insufficiency Limited to breakdown of skin MTDD
== END 2019-04-16 16:38 | DRG 308 ==
LOC: EC 13:58 → 3SCARD 15:17
PROVIDERS: ADMIT Internal Medicine; ATTEND Internal Medicine
DX: I48.1 Persistent atrial fibrillation (principal); J18.1 Lobar pneumonia, unspecified organism; I50.23 Acute on chronic systolic (congestive) heart failure; N17.9 Acute kidney failure, unspecified; I13.0 Hypertensive heart and chronic kidney disease with heart failure and stage 1 through stage 4 chronic kidney disease, or unspecified chronic kidney disease; L97.211 Non-pressure chronic ulcer of right calf limited to breakdown of skin; I42.9 Cardiomyopathy, unspecified; E11.649 Type 2 diabetes mellitus with hypoglycemia without coma; E11.22 Type 2 diabetes mellitus with diabetic chronic kidney disease; I08.1 Rheumatic disorders of both mitral and tricuspid valves; N18.3 Chronic kidney disease, stage 3 (moderate); I87.2 Venous insufficiency (chronic) (peripheral); E03.9 Hypothyroidism, unspecified; E78.5 Hyperlipidemia, unspecified; G31.84 Mild cognitive impairment of uncertain or unknown etiology; R10.9 Unspecified abdominal pain; Z79.01 Long term (current) use of anticoagulants; Z79.4 Long term (current) use of insulin; Z79.890 Hormone replacement therapy; Z79.899 Other long term (current) drug therapy; Z90.49 Acquired absence of other specified parts of digestive tract; Z93.3 Colostomy status
CPT/HCPCS: 71045; 80048; 82947; 83605; 83735; 83880; 84443; 84484; 85025; 87040; 93005; 99285

== ENCOUNTER 2019-05-31 14:01 | Inpatient (IN) | payer MEDICARE, OTHER ==
[2019-05-31 14:57] LABS: Calcium 8.7 mg/dL (8.4-10.2); Potassium 4.9 mmol/L (3.5-5.1); Total Bilirubin 0.9 mg/dL (0.2-1.3); Total Protein 5.7 g/dL (6.3-8.2)
[2019-05-31] MEDS ORDERED: SODIUM CHLORIDE 0.9% 500 ML 500 ML IV ONE (15:22)
[2019-05-31] MEDS ORDERED: SODIUM CHLORIDE 0.9% 1,000 ML IV STA (15:32)
[2019-05-31] MEDS ORDERED: Dextrose 25% Syringe (PEDs) 10 ML SYRINGE IVP STA (15:33)
[2019-05-31] MEDS ORDERED: DEXTROSE 50% SYRINGE 50 ML IVP STA (15:41)
--- NOTE | 2019-05-31 16:15 | ED ---
General Adult HPI - General Chief complaint: Recheck/Abnormal Lab/Rx Stated complaint: Sepsis Time Seen by Provider: 05/31/19 14:01 Source: patient, RN/MD, EMS, RN notes reviewed, old records reviewed Mode of arrival: EMS Limitations: no limitations - History of Present Illness Initial comments: This is a 73-year-old female with a history of atrial fibrillation who was brought in to [facility] today with fever she apparently was said to have blue fingers and fever she did not have blue fingers upon arrival. She was found however to have a left lower lobe pneumonia and elevated lactic acid she did have evidence of sepsis syndrome additionally she was noted to be bradycardic with a possible Mobitz type II second-degree heart block. She did maintain blood pressure. She was sent here for further evaluation. Upon arrival she was awake alert and oriented. She was demonstrating a very bradycardic rhythm in the 30s. She did however maintained her blood pressure. He had [facility] she was started on IV antibiotics as well as fluids she was given an approximate 60 mL of IV fluids per report. For her medication she is on amiodarone as well as metoprolol. - Related Data Home Medications Medication Instructions Recorded Confirmed Atorvastatin [Lipitor] 10 mg PO HS 06/03/18 05/31/19 Calcium Acetate [PhosLo] 667 mg PO DAILY 06/03/18 05/31/19 Calcium Carbonate/Vitamin D3 1 tab PO DAILY 06/03/18 05/31/19 [Calcium 600-Vit D3 400 Tablet] Levothyroxine Sodium [Synthroid] 25 mcg PO DAILY 06/03/18 05/31/19 Magnesium Oxide [Mag-Ox] 400 mg PO BID 06/03/18 05/31/19 Multivitamins, Thera [Multivitamin 1 tab PO DAILY 06/03/18 05/31/19 (formulary)] Loratadine 10 mg PO DAILY 03/31/19 05/31/19 INSULIN LISPRO (humaLOG) [humaLOG] See Protocol SQ DIRECTED 04/11/19 05/31/19 Apixaban [Eliquis] 2.5 mg PO BID 05/31/19 05/31/19 Insulin Glargine [Lantus] 14 unit SQ HS 05/31/19 05/31/19 Mesalamine [Delzicol] 400 mg PO BID 05/31/19 05/31/19 Metoprolol Tartrate [Lopressor] 25 mg PO TID 05/31/19 05/31/19 Previous Rx's Medication Instructions Recorded Lisinopril [Zestril] 5 mg PO DAILY #30 tablet 04/03/19 Amiodarone [Cordarone] 200 mg PO TID #30 tab 04/16/19 Allergies Allergy/AdvReac Type Severity Reaction Status Date / Time No Known Allergies Allergy Verified 05/31/19 15:44 Review of Systems ROS Statement: Those systems with pertinent positive or pertinent negative responses have been documented in the HPI. ROS Other: All systems not noted in ROS Statement are negative. Past Medical History Past Medical History: Atrial Fibrillation, Heart Failure, Diabetes Mellitus, Hyp erlipidemia, Hypertension, Thyroid Disorder Additional Past Medical History / Comment(s): Mild developmental delay, the patient lives in a foster home since 1990, CHF with systolic heart failure/nonischemic cardiomyopathy, chronic atrial fibrillation, long-term antibiotic ventilation with warfarin, hypertension, hyperlipidemia, diabetes mellitus, hypothyroidism History of Any Multi-Drug Resistant Organisms: None Reported Past Surgical History: Bladder Surgery, Bowel Resection Additional Past Surgical History / Comment(s): HAS COLOSTOMY. Past Anesthesia/Blood Transfusion Reactions: Unable to Obtain Past Psychological History: No Psychological Hx Reported Smoking Status: Never smoker Past Alcohol Use History: None Reported Past Drug Use History: None Reported - Past Family History Mother Family Medical History: Unable to Obtain General Exam - General Exam Comments Initial Comments: This is a well-developed well-nourished awake alert oriented 3 female Limitations: no limitations General appearance: alert, in no apparent distress Head exam: Present: atraumatic, normocephalic, normal inspection Eye exam: Present: normal appearance, PERRL, EOMI. Absent: scleral icterus, conjunctival injection, periorbital swelling ENT exam: Present: normal exam, mucous membranes moist Neck exam: Present: normal inspection, full ROM, other. Absent: tenderness, meningismus, lymphadenopathy Respiratory exam: Present: decreased breath sounds (No stridor JVD or bruits). Absent: respiratory distress, wheezes, rales, rhonchi, stridor Cardiovascular Exam: Present: bradycardia. Absent: systolic murmur, diastolic murmur, rubs, gallop, clicks GI/Abdominal exam: Present: soft, normal bowel sounds. Absent: distended, tenderness, guarding, rebound, rigid Extremities exam: Present: normal inspection, full ROM, normal capillary refill. Absent: tenderness, pedal edema, joint swelling, calf tenderness Back exam: Present: normal inspection Neurological exam: Present: alert, oriented X3, CN II-XII intact Psychiatric exam: Present: normal affect, normal mood Skin exam: Present: warm, dry, intact, normal color. Absent: rash Course Vital Signs 05/31/19 05/31/19 05/31/19 14:05 14:31 15:05 Temperature 98.0 F Pulse Rate 33 L 30 L 29 L Respiratory 18 18 18 Rate Blood Pressure 144/54 119/46 101/48 O2 Sat by Pulse 100 100 100 Oximetry 05/31/19 05/31/19 15:13 16:06 Temperature Pulse Rate 32 L 30 L Respiratory 18 18 Rate Blood Pressure 102/43 128/45 O2 Sat by Pulse 100 98 Oximetry - Reevaluation(s) Reevaluation #1: 05/31/19 16:40 Patient was reevaluated by me and several occasions she was noted have bradycardia consistently throughout her stay in the emergency department in the high 20s. Additionally she did drop her blood pressure on 2 occasions into the 80s systolic. She was given IV fluid she also was noted to be hypoglycemic she did get D 50. I did discuss the case both with Dr. Colón who did come the emergency department see the patient as well as Dr. Hu patient was taken to the [facility] for emergent temporary pacer. I also discussed case Dr. Lester. Patient will be admitted ICU. EKG Findings - EKG Results: EKG: interpreted by ONIEL (Marked sinus bradycardia 33 WA interval 168 QRS 90 QT since QTC 666/[address]-T wave configuration prolonged QT) Medical Decision Making - Lab Data Result diagrams: 05/31/19 14:27 Lab Results 05/31/19 05/31/19 05/31/19 Range/Units 14:27 14:27 14:27 Sodium 135 L (137-145) mmol/L Potassium 4.9 (3.5-5.1) mmol/L Chloride 98 (98-107) mmol/L Carbon Dioxide 31 H (22-30) mmol/L Anion Gap 6 mmol/L BUN 51 H (7-17) mg/dL Creatinine 1.47 H (0.52-1.04) mg/dL Est GFR (CKD-EPI)AfAm 40 (>60 ml/min/1.73 sqM) Est GFR (CKD-EPI)NonAf 35 (>60 ml/min/1.73 sqM) Glucose 61 L (74-99) mg/dL Plasma Lactic Acid Horacio 2.2 H* (0.7-2.0) mmol/L Calcium 8.7 (8.4-10.2) mg/dL Magnesium 2.0 (1.6-2.3) mg/dL Total Bilirubin 0.9 (0.2-1.3) mg/dL AST 34 (14-36) U/L ALT 29 (9-52) U/L Alkaline Phosphatase 75 (38-126) U/L Total Protein 5.7 L (6.3-8.2) g/dL Albumin 3.0 L (3.5-5.0) g/dL TSH 0.519 (0.465-4.680) mIU/L Critical Care Time Critical Care Time: Yes Critical Care Time: 39 minutes of critical care time which includes initial presentation with history physical labs review the material sent with the sending facility. Multiple reevaluation the patient again discuss with multiple physicians some initial orders and documentation of the above. Disposition Clinical Impression: Left lower lobe pneumonia, Bradycardia, Hypotensive episode, Lactic acidosis, Febrile illness, acute Disposition: ADMITTED IP TO THIS HOSP Condition: Serious Referrals: Adolfo Wang MD [Primary Care Provider] - 1-2 days
[2019-05-31] MEDS ORDERED: LIDOCAINE 1% INJ 10MG/ML (20 ML MDV) ONE (16:34)
[2019-05-31] MEDS ORDERED: PNEUMONIA PROTOCOL UTILIZED 1 EACH MISC PO PRN (16:44)
[2019-05-31] MEDS ORDERED: LEVOFLOXACIN 750MG-D5W PMX 750 MG in DEXTROSE/WATER 1 150ML.BAG IVPB STA (16:44)
[2019-05-31] MEDS ORDERED: LIDOCAINE 1% INJ 10MG/ML (20 ML MDV) SQ ONE ×2 (17:10→17:12)
[2019-05-31] MEDS ORDERED: MIDAZOLAM 2 MG/2 ML VIAL IVP ONE (17:12)
[2019-05-31] MEDS ORDERED: IV FLUID CONTINUATION 1,000 ML IV ONE (17:24)
--- NOTE | 2019-05-31 17:40 | P.CRDCN ---
History of Present Illness Consult date: 05/31/19 Chief complaint: Change in mental status History of present illness: This is a pleasant 73-year-old female patient follow at [place] with a resident at snf facility at [place] with an extensive past medical history consistent of long-standing persistent atrial fibrillation currently on oral anticoagulation with Eliquis, known severe nonischemic cardiomyopathy with an echocardiogram from March 2019 showing an ejection fraction of 20%, diabetes type 2, hypertension, dyslipidemia, as well as underlying dementia and also known colostomy, was brought from [facility] to the emergency room with formerly [facility] for further evaluation of change in mental status as well as fever. The patient somewhat is a poor historian and that is her baseline knowing her from before. She was found to be febrile at [facility]. Subsequently a UA was performed and showed UTI. Also a chest x-ray was performed and showed a pneumonia. Lactic acid came in to be elevated. The patient was diagnosed with sepsis/UTI/pneumonia and she was transferred to [facility]. In the emergency room here she was found to be in profound bradycardia with a resting heart rate around 30 beats per minutes. The EKG revealed profound sinus bradycardia. As an outpatient, she was receiving metoprolol as well as amiodarone. She was admitted to the hospital here in March 2019 with a pneumonia and she was found to be in A. fib with RVR and subsequently she was started on amiodarone in addition to metoprolol. An echocardiogram at that point showed an EF around 20% but the patient was noted to be not a candidate to have any device like AICD. The amiodarone as well as metoprolol were held. The patient subsequently was brought to the cardiac laboratory associate where she underwent a transvenous temporary pacemaker from right IJ. The patient normally does have a power of commercial litigation attorney who made a decision for her. Past Medical History Past Medical History: Atrial Fibrillation, Heart Failure, Diabetes Mellitus, Hyperlipidemia, Hypertension, Thyroid Disorder Additional Past Medical History / Comment(s): Mild developmental delay, the patient lives in a foster home since 1990, CHF with systolic heart failure/nonischemic cardiomyopathy, chronic atrial fibrillation, long-term antibiotic ventilation with warfarin, hypertension, hyperlipidemia, diabetes mellitus, hypothyroidism History of Any Multi-Drug Resistant Organisms: None Reported Past Surgical History: Bladder Surgery, Bowel Resection Additional Past Surgical History / Comment(s): HAS COLOSTOMY. Past Anesthesia/Blood Transfusion Reactions: Unable to Obtain Past Psychological History: No Psychological Hx Reported Smoking Status: Never smoker Past Alcohol Use History: None Reported Past Drug Use History: None Reported - Past Family History Mother Family Medical History: Unable to Obtain Medications and Allergies Home Medications Medication Instructions Recorded Confirmed Type Atorvastatin [Lipitor] 10 mg PO HS 06/03/18 05/31/19 History Calcium Acetate [PhosLo] 667 mg PO DAILY 06/03/18 05/31/19 History Calcium Carbonate/Vitamin D3 1 tab PO DAILY 06/03/18 05/31/19 History [Calcium 600-Vit D3 400 Tablet] Levothyroxine Sodium [Synthroid] 25 mcg PO DAILY 06/03/18 05/31/19 History Magnesium Oxide [Mag-Ox] 400 mg PO BID 06/03/18 05/31/19 History Multivitamins, Thera [Multivitamin 1 tab PO DAILY 06/03/18 05/31/19 History (formulary)] Loratadine 10 mg PO DAILY 03/31/19 05/31/19 History Lisinopril [Zestril] 5 mg PO DAILY #30 tablet 04/03/19 05/31/19 Rx INSULIN LISPRO (humaLOG) [humaLOG] See Protocol SQ DIRECTED 04/11/19 05/31/19 History Amiodarone [Cordarone] 200 mg PO TID #30 tab 04/16/19 05/31/19 Rx Apixaban [Eliquis] 2.5 mg PO BID 05/31/19 05/31/19 History Insulin Glargine [Lantus] 14 unit SQ HS 05/31/19 05/31/19 History Mesalamine [Delzicol] 400 mg PO BID 05/31/19 05/31/19 History Metoprolol Tartrate [Lopressor] 25 mg PO TID 05/31/19 05/31/19 History Allergies Allergy/AdvReac Type Severity Reaction Status Date / Time No Known Allergies Allergy Verified 05/31/19 15:44 Physical Exam Vitals: Vital Signs Temp Pulse Resp BP Pulse Ox 05/31/19 17:07 29 L 18 154/64 100 05/31/19 16:06 30 L 18 128/45 98 05/31/19 15:13 32 L 18 102/43 100 05/31/19 15:05 29 L 18 101/48 100 05/31/19 14:31 30 L 18 119/46 100 05/31/19 14:05 98.0 F 33 L 18 144/54 100 Intake and Output 05/31/19 05/31/19 05/31/19 06:59 14:59 22:59 Intake Total 20 Output Total 500 Balance -500 20 Intake: IV 20 Output: Urine 500 Uretheral (Thompson) 500 Other: Weight 58.06 kg - Constitutional General appearance: no acute distress - Respiratory Respiratory: bilateral: diminished - Cardiovascular Rhythm: regular Heart sounds: normal: S1, S2 Results 05/31/19 14:27 Cardiac Enzymes 05/31/19 Range/Units 14:27 AST 34 (14-36) U/L Comprehensive Metabolic Panel 05/31/19 Range/Units 14:27 Sodium 135 L (137-145) mmol/L Potassium 4.9 (3.5-5.1) mmol/L Chloride 98 (98-107) mmol/L Carbon Dioxide 31 H (22-30) mmol/L BUN 51 H (7-17) mg/dL Creatinine 1.47 H (0.52-1.04) mg/dL Glucose 61 L (74-99) mg/dL Calcium 8.7 (8.4-10.2) mg/dL AST 34 (14-36) U/L ALT 29 (9-52) U/L Alkaline Phosphatase 75 (38-126) U/L Total Protein 5.7 L (6.3-8.2) g/dL Albumin 3.0 L (3.5-5.0) g/dL Current Medications Generic Name Dose Route Start Last Admin Trade Name Freq PRN Reason Stop Dose Admin Apixaban 2.5 mg 05/31/19 21:00 Eliquis PO BID ISABEL Atorvastatin Calcium 10 mg 05/31/19 21:00 Lipitor PO HS ISABEL Calcium Acetate 667 mg 06/01/19 09:00 Phoslo PO DAILY ISABEL Levofloxacin 750 mg/ IV 150 mls @ 100 mls/hr 05/31/19 16:44 Solution IVPB 05/31/19 18:13 ONCE STA Piperacillin Sod/Tazobactam 100 mls @ 25 mls/hr 06/01/19 00:00 Sod 3.375 gm/ Sodium Chloride IVPB 06/11/19 00:01 Q8HR [facility] Insulin Aspart 0 unit 05/31/19 17:30 Novolog SQ ACHS [facility] Protocol Levofloxacin 750 mg 06/01/19 16:00 Levaquin PO 06/06/19 16:59 DAILY@1600 ISABEL Levothyroxine Sodium 25 mcg 06/01/19 09:00 Synthroid PO DAILY ISABEL Loratadine 10 mg 06/01/19 09:00 Claritin PO DAILY ISABEL Magnesium Oxide 400 mg 05/31/19 21:00 Mag-Ox PO BID [facility] Miscellaneous Information 1 each 05/31/19 16:44 Pneumonia Protocol Utilized PO ONCE PRN Per Protocol Multivitamins 1 each 06/01/19 09:00 Theragran PO DAILY [facility] Non-Formulary Medication 400 mg 05/31/19 21:00 Mesalamine PO BID ISABEL Non-Formulary Medication 1 tab 06/01/19 09:00 Calcium Carbonate/Vitamin D3 [Calcium 600-Vit D3 400 Tablet] PO DAILY ISABEL Intake and Output 05/31/19 05/31/19 05/31/19 06:59 14:59 22:59 Intake Total 20 Output Total 500 Balance -500 20 Intake: IV 20 Output: Urine 500 Uretheral (Thompson) 500 Other: Weight 58.06 kg Patient Weight 06/01/19 06:59 Weight 58.06 kg 05/31/19 14:27 Assessment and Plan Assessment: Assessment #1 UTI/sepsis #2 elevated lactic acid #3 possible underlying pneumonia #4 fever secondary to the above #5 profound bradycardia #6 severe nonischemic cardiomyopathy #7 known long-standing persistent atrial fibrillation #8 multiple comorbid conditions including diabetes, hypertension, dyslipidemia Plan #1 hold the amiodarone as well as metoprolol #2 the TSH was checked and came in to be unremarkable #3 the patient underwent successful placement of transvenous temporary pacemaker #4 she is going to be admitted to the intensive care unit #5 sepsis workup #6 discussed with the poor of commercial litigation attorney the next step Thank you for allowing us participate in her care and we will continue following up with the patient
--- NOTE | 2019-05-31 17:43 | P.PCN ---
Date of Procedure: 05/31/19 Operative Findings: Transvenous temporary pacemaker Performing physician David Steel M.D. Procedure performed Successful placement of transvenous temporary pacemaker Indication Severe symptomatic bradycardia Complication None Approach Right IJ vein Level of sedation Moderate with a sedation length of 10 minutes Procedure description After obtaining an informed consent the patient was brought to the cardiac soap slabber. Conscious sedation was achieved using 1 mg of Versed IV. Subsequently the right IJ was cannulated using micropuncture technique under ultrasound guidance, the micropuncture wire passed easily under fluoroscopy guidance, then I placed a 6-Frisian sheath in the right IJ. The sheath subsequently was flushed. Then it was secured. After that and under fluoroscopy guidance I advanced transvenous temporary pacemaker with balloon tip to the right ventricle. The pacemaker was set up at the setting of heart rate 60 bpm and an of 2.5. The procedure was completed without any complication Postprocedure management ICU admission Continue holding the metoprolol and amiodarone Follow-up with the patient
[2019-05-31 17:47] LABS: Glucose,Whole Blood 103 mg/dL (75-99)
--- NOTE | 2019-05-31 17:56 | P.HPIM ---
History of Present Illness H&P Date: 05/31/19 Chief Complaint: Bradycardia, sent from [facility] Patient is a 72-year-old female with known history of chronic atrial fibrillation on anticoagulation with Eliquis, CHF with systolic heart failure/nonischemic cardio myopathy, hypertension, hyperlipidemia, inflammatory bowel disease and hypothyroidism as well as diabetes type 2 was initially presented to [facility] with complaints of fever and also fingers turning blue. Patient had chest x-ray which showed left lower lobe pneumonia. Patient was also having lactic acidosis 2.2. Patient was given fluid bolus and started on IV antibiotics at this time. She was noted to have bradycardia and possible Mobitz type II heart block. Heart rate was in the 30s. Patient has chronic atrial fibrillation. Patient was eventually transferred to [facility] for further evaluation by cardiology. Denied any complaints of dizziness or lightheadedness while in bed. No fever no chills currently. Patient does have generalized weakness and tiredness otherwise. Patient does have chronic atrial fibrillation and was admitted to the hospital in March 2019 with rapid ventricular rate. Patient had difficulty controlling heart rate. She was initially on Cardizem drip and amiodarone drip. Patient was discharged home on amiodarone and metoprolol. Patient is also on anticoagulation with a liquids. Patient also completed 5 days of antibiotic therapy for left lower lobe pneumonia at that time. Patient was discharged to [facility] on 04/16/2019. Patient currently takes amiodarone, metoprolol. Due to significant bradycardia patient was placed on temporary pacemaker in the ER. Patient was also started on antibiotics in the form of Levaquin for possible left lower lobe pneumonia. Patient denied any complaints of abdominal pain. No nausea vomiting or diarrhea. Patient does have left abdominal wound for which she is following her surgeon. Patient is somewhat poor historian. Review of Systems Constitutional: Fever no chills.. Patient feels weak and tired Abdomen: Patient denied nausea vomiting and diarrhea and abdominal pain. Cardiovascular: Patient denies any chest pain or short of breath no palpitations. Respiratory: patient denied any cough is from production. No shortness of breath Neurologic: Patient denied any numbness or tingling headache. Musculoskeletal: Patient denies any complaints of joint swelling or deformity. Skin: Negative Psychiatric: Negative Endocrine: No heat or cold intolerance. No recent weight gain. Genitourinary: No dysuria or hematuria. All other 14 point ROS negative except the above Past Medical History Past Medical History: Atrial Fibrillation, Heart Failure, Diabetes Mellitus, Hyperlipidemia, Hypertension, Thyroid Disorder Additional Past Medical History / Comment(s): Mild developmental delay, the patient lives in a foster home since 1990, CHF with systolic heart failure/nonischemic cardiomyopathy, chronic atrial fibrillation, long-term antibiotic ventilation with warfarin, hypertension, hyperlipidemia, diabetes mellitus, hypothyroidism History of Any Multi-Drug Resistant Organisms: None Reported Past Surgical History: Bladder Surgery, Bowel Resection Additional Past Surgical History / Comment(s): HAS COLOSTOMY. Past Anesthesia/Blood Transfusion Reactions: Unable to Obtain Past Psychological History: No Psychological Hx Reported Smoking Status: Never smoker Past Alcohol Use History: None Reported Past Drug Use History: None Reported - Past Family History Mother Family Medical History: Unable to Obtain Medications and Allergies Home Medications Medication Instructions Recorded Confirmed Type Atorvastatin [Lipitor] 10 mg PO HS 06/03/18 05/31/19 History Calcium Acetate [PhosLo] 667 mg PO DAILY 06/03/18 05/31/19 History Calcium Carbonate/Vitamin D3 1 tab PO DAILY 06/03/18 05/31/19 History [Calcium 600-Vit D3 400 Tablet] Levothyroxine Sodium [Synthroid] 25 mcg PO DAILY 06/03/18 05/31/19 History Magnesium Oxide [Mag-Ox] 400 mg PO BID 06/03/18 05/31/19 History Multivitamins, Thera [Multivitamin 1 tab PO DAILY 06/03/18 05/31/19 History (formulary)] Loratadine 10 mg PO DAILY 03/31/19 05/31/19 History Lisinopril [Zestril] 5 mg PO DAILY #30 tablet 04/03/19 05/31/19 Rx INSULIN LISPRO (humaLOG) [humaLOG] See Protocol SQ DIRECTED 04/11/19 05/31/19 History Amiodarone [Cordarone] 200 mg PO TID #30 tab 04/16/19 05/31/19 Rx Apixaban [Eliquis] 2.5 mg PO BID 05/31/19 05/31/19 History Insulin Glargine [Lantus] 14 unit SQ HS 05/31/19 05/31/19 History Mesalamine [Delzicol] 400 mg PO BID 05/31/19 05/31/19 History Metoprolol Tartrate [Lopressor] 25 mg PO TID 05/31/19 05/31/19 History Allergies Allergy/AdvReac Type Severity Reaction Status Date / Time No Known Allergies Allergy Verified 05/31/19 15:44 Physical Exam Vitals: Vital Signs Temp Pulse Resp BP Pulse Ox 05/31/19 17:07 29 L 18 154/64 100 05/31/19 16:06 30 L 18 128/45 98 05/31/19 15:13 32 L 18 102/43 100 05/31/19 15:05 29 L 18 101/48 100 05/31/19 14:31 30 L 18 119/46 100 05/31/19 14:05 98.0 F 33 L 18 144/54 100 Intake and Output 05/31/19 05/31/19 05/31/19 06:59 14:59 22:59 Output Total 500 Balance -500 Output: Urine 500 Uretheral (Thompson) 500 Other: Weight 58.06 kg PHYSICAL EXAMINATION: Patient is lying in the bed comfortably, no acute distress, awake alert and oriented.. HEENT: Normocephalic. Neck is supple. Pupils reactive. Nostrils clear. Oral cavity is moist. Ears reveal no drainage. Neck reveals no JVD, carotid bruits, or thyromegaly. CHEST EXAMINATION: Trachea is central. Symmetrical expansion. Bibasilar crackles and diminished sounds. Otherwise Lung dior clear to auscultation and percussion. CARDIAC: Normal S1, S2 with no gallops. No murmurs ABDOMEN: Soft. Left-sided abdominal wall wound and possible fistula. Bowel sounds normal. No organomegaly. No abdominal bruits. Extremities: reveal no edema. No clubbing or cyanosis Neurologically awake, alert, oriented x3 with well-coordinated movements. No focal deficits noted Skin: No rash or skin lesions. Psychiatric: Coperative. Nonsuicidal Musculoskeletal: No joint swelling or deformity. Normal range of motion. Results CBC & Chem 7: 05/31/19 14:27 Labs: Abnormal Lab Results - Last 24 Hours (Table) 05/31/19 05/31/19 Range/Units 14:27 14:27 Sodium 135 L (137-145) mmol/L Carbon Dioxide 31 H (22-30) mmol/L BUN 51 H (7-17) mg/dL Creatinine 1.47 H (0.52-1.04) mg/dL Glucose 61 L (74-99) mg/dL Plasma Lactic Acid Horacio 2.2 H* (0.7-2.0) mmol/L Total Protein 5.7 L (6.3-8.2) g/dL Albumin 3.0 L (3.5-5.0) g/dL Thrombosis Risk Factor Assmnt - DVT/VTE Prophylaxis DVT/VTE Prophylaxis: Pharmacologic Prophylaxis ordered Assessment and Plan Assessment: Symptomatic bradycardia/Mobitz type II heart block. Placed on temporary pacemaker. Possible Left lower lobe pneumonia. chronic CHF with systolic dysfunction. On Lasix at home.. Chronic Persistent Atrial fibrillation with rapid ventricular rate. On anticoagulation with liquids Hypoglycemia likely due to insulin at home. Diabetes type 2 insulin-dependent Hypertension Hyperlipidemia Nonischemic cardiomyopathy Hypothyroidism Colostomy bag with history of colectomy. Plan: Patient will be continued on telemetry monitoring. Temporary pacemaker was placed in the ER. Cardiology is planning for cardiac catheterization. Metoprolol and amiodarone is on hold. Continue with antibiotics for left lower lobe pneumonia in the form of Levaquin. Continue to follow closely and insulin sliding scale. Further recommendations based on the clinical course. Prognosis is guarded. Time with Patient: Greater than 30
[2019-05-31] MEDS: INSULIN ASPART (NovoLOG) 100 UNIT/ML VIAL SQ SCH ×2 (18:12→20:18)
[2019-05-31] MEDS ORDERED: IPRATROPIUM-ALBUTEROL 3 ML NEB INHALATION PRN (18:38)
[2019-05-31 19:17] LABS: Appearance,Urine Clear (Clear); Bacteria,Urine Rare /hpf; Bilirubin,Urine Negative (Negative); Blood,Urine Negative (Negative); Color,Urine Light Yellow; Glucose,Urine (UA) Negative (Negative); Ketones,Urine Negative (Negative); Leukocyte Esterase,Urine Negative (Negative); Nitrite,Urine Negative (Negative); PH, Urine 7.5 (5.0-8.0); Protein,Urine 1+ (Negative); RBC,Urine 1 /hpf (0-5); Specific Gravity,Urine 1.008 (1.001-1.035); Urobilinogen,Urine <2.0 mg/dL (<2.0)
[2019-05-31 20:13] LABS: Glucose,Whole Blood 97 mg/dL (75-99)
[2019-05-31] MEDS: SODIUM CHLORIDE 0.9% 1,000 ML IV SCH (20:20)
[2019-05-31] MEDS: MAGNESIUM OXIDE 400 MG TAB PO SCH (20:21)
[2019-05-31] MEDS: ATORVASTATIN 10 MG TAB PO SCH (20:21)
[2019-05-31] MEDS: APIXABAN 2.5 MG TABLET PO SCH (20:21)
[2019-05-31] MEDS: BALSALAZIDE DISODIUM 750 MG CAPSULE PO SCH (20:21)
[2019-05-31] MEDS: IPRATROPIUM-ALBUTEROL 3 ML NEB INHALATION SCH (20:34)
[2019-06-01] MEDS: PIPERACILLIN-TAZOBACTAM 3.375 GM in SODIUM CHLORIDE 0.9% 100 ML IVPB SCH ×3 (00:50→19:07)
[2019-06-01] MEDS: SODIUM CHLORIDE 0.9% 1,000 ML IV SCH ×2 (04:45→19:00)
[2019-06-01 04:52] LABS: Basophils % (A) 0 %; Eosinophils # (A) 0.1 k/uL (0-0.7); Eosinophils % (A) 2 %; HCT 36.7 % (34.0-46.0); HGB 11.8 gm/dL (11.4-16.0); Lymphocytes # (A) 0.4 k/uL (1.0-4.8); Lymphocytes % (A) 5 %; MCH 30.1 pg (25.0-35.0); MCHC 32.1 g/dL (31.0-37.0); MCV 93.8 fL (80.0-100.0); Mean Platelet Volume 5.9; Monocytes # (A) 0.3 k/uL (0-1.0); Monocytes % (A) 4 %; Neutrophils # (A) 7.2 k/uL (1.3-7.7); Neutrophils % (A) 88 %; Platelet Count 212 k/uL (150-450); RBC 3.91 m/uL (3.80-5.40); RDW 15.4 % (11.5-15.5); WBC 8.2 k/uL (3.8-10.6)
[2019-06-01 05:03] LABS: Calcium 7.9 mg/dL (8.4-10.2); Potassium 4.8 mmol/L (3.5-5.1)
[2019-06-01 06:34] LABS: Glucose,Whole Blood 76 mg/dL (75-99)
[2019-06-01] MEDS: INSULIN ASPART (NovoLOG) 100 UNIT/ML VIAL SQ SCH ×4 (06:46→20:44)
[2019-06-01] MEDS: LEVOTHYROXINE 25 MCG TAB PO SCH (06:48)
[2019-06-01] MEDS: IPRATROPIUM-ALBUTEROL 3 ML NEB INHALATION SCH ×4 (07:57→19:49)
--- NOTE | 2019-06-01 08:19 | XR ---
EXAMINATION TYPE: XR chest 1V DATE OF EXAM: 06/01/2019 COMPARISON: 04/12/2019 HISTORY: Pneumonia TECHNIQUE: Single frontal view of the chest is obtained. FINDINGS: The heart is enlarged. There is left lower lobe consolidation and bilateral small effusion s with basilar subsegmental consolidation. No overt failure. No pneumothorax. Arthropathy of the shou lder. Atherosclerotic change aorta. IMPRESSION: Bilateral lower lobe infiltrate and small effusion greater on the left. Correlate for pn eumonia. No overt failure.
[2019-06-01] MEDS: PANTOPRAZOLE 40 MG/10 ML VIAL IV SCH (08:53)
[2019-06-01] MEDS: MAGNESIUM OXIDE 400 MG TAB PO SCH ×2 (08:53→20:44)
[2019-06-01] MEDS: CALCIUM ACETATE 667 MG CAP PO SCH (08:53)
[2019-06-01] MEDS: CALCIUM CARB-VIT D 500MG-200UN 1 EACH TAB PO SCH (08:53)
[2019-06-01] MEDS: APIXABAN 2.5 MG TABLET PO SCH ×2 (08:53→20:44)
[2019-06-01] MEDS: LORATADINE 10 MG TAB PO SCH (08:53)
[2019-06-01] MEDS: MULTIVITAMINS, THERA 1 EACH TAB PO SCH (09:04)
[2019-06-01] MEDS: BALSALAZIDE DISODIUM 750 MG CAPSULE PO SCH ×2 (09:04→20:44)
[2019-06-01] MEDS ORDERED: IOPAMIDOL CONTRAST (ORAL USE) VIAL PO PRN (09:49)
--- NOTE | 2019-06-01 10:48 | CDI ---
Documentation Clarification Form Date: 06/01/191043 CDS: Alex HOU, CCDS Admit Date:05/31 1644 Patient Name: Sophia Swift ATTENTION: The Clinical Documentation Specialists (CDI) and [facility] Coding Staff appreciate your assistance in clarifying documentation. Please respond to the clarification below the line at the bottom and electronically sign. The CDI & [facility] Coding staff will review the response and follow-up if needed. Please note: Queries are made part of the Legal Health Record. If you have any questions, please contact the author of this message via ITS. Dr. Colón An elevated BUN and creatinine have been noted with a declining GFR and require greater specificity. History/Risk Factors: Patients baseline BUN/CR/GFR: 42/1.38/37 Clinical Indicators: Current BUN: 51/36 Cr: 1.47/1.3 GFR: 35/40 Treatment: 1.5 L IVF Bolus In order to capture the severity of condition, please clarify if the condition signifies: Acute renal failure, Please specify etiology (if known): Cortical Necrosis Medullary Necrosis Tubular Necrosis Acute kidney injury Acute on chronic renal failure CKD Stage 1 GFR >90 CKD Stage 2 GFR 60-89 CKD Stage 3 GFR 30-59 CKD Stage 4 GFR 15-29 CKD Stage 5 GFR <15 Chronic renal failure/Chronic Kidney disease (CKD) please stage (if known): CKD Stage 1 GFR >90 CKD Stage 2 GFR 60-89 CKD Stage 3 GFR 30-59 CKD Stage 4 GFR 15-29 CKD Stage 5 GFR <15 Other, please specify Unable to determine (Last Revision: November 2017) Acute on chronic kidney disease stage III likely prerenal MTDD
--- NOTE | 2019-06-01 11:21 | CDI ---
Documentation Clarification Form Date: 06/01/19 9917 CDS: Beba Boo RN, CCDS Admit Date: 05/31/2019 0447 Patient Name: Sophia Swift ATTENTION: The Clinical Documentation Specialists (CDI) and [facility] Coding Staff appreciate your assistance in clarifying documentation. Please respond to the clarification below the line at the bottom and electronically sign. The CDI & [facility] Coding staff will review the response and follow-up if needed. Please note: Queries are made part of the Legal Health Record. If you have any questions, please contact the author of this message via ITS. Dr. Colón The patient presented with the following Symptomatic Mobitz type II heart block History/Risk Factors: DM, Pneumonia, chronic atrial fib Cardiology Consult: "UTI/Sepsis" Bradycardia with TVP, DM, HTN, Dyslipidemia Clinical Indicators: WBC: 8.2 Lactic acid: 2.2/1.6 Blood cultures: - CXR: bilateral lower lobe infiltrate and small effusion greater on the left, correlate for pneumonia Vitals signs on admission: Treatment: Antibiotics: Zosyn 3.375 gm IVPB Q 8 hrs, Levaquin 750 mg IVPB x 1 dose 1.5L IVF Bolus In your professional opinion, please clarify if these findings signify one of the following conditions, whether the condition is POA, and cause, if known: Condition Sepsis ruled out SIRS, without underlying infectious process Sepsis Severe Sepsis Septic Shock Other, please specify Unable to determine Present on Admission Yes No Identify the (suspected) organism Link or clarify if there is associated (due to/with): Organ failure Shock SIRS Criteria (2 or more of the following may indicate SIRS): -Temperature < 96.8F (36C) or > 101.0F (38.3C) -Heart Rate > 90 bpm -Respiratory Rate > 20 breaths/min or PaCO2 < 32 mmHg -White Blood Cell Count > 12,000 or < 4,000 cells/mm3 or > 10% bands -Lactate >2.0 mmol/L (>4.0 is equivalent to septic shock) (Last Revision: November 2017) Sepsis ruled out MTDD
[2019-06-01 11:38] LABS: Glucose,Whole Blood 204 mg/dL (75-99)
--- NOTE | 2019-06-01 11:51 | CDI ---
Documentation Clarification Form Date: 06/01/19 1147 CDS: Beba Boo RN, CCDS Admit Date: 05/31/19443 Patient Name: Sophia Swift ATTENTION: The Clinical Documentation Specialists (CDI) and [facility] Coding Staff appreciate your assistance in clarifying documentation. Please respond to the clarification below the line at the bottom and electronically sign. The CDI & [facility] Coding staff will review the response and follow-up if needed. Please note: Queries are made part of the Legal Health Record. If you have any questions, please contact the author of this message via ITS. Dr. Colón Pneumonia was documented in the H&P and Consult and requires further specificity. History/Risk Factors: LLL Pneumonia with Antibiotics March 2019 completing 5 days Abx at home, chronic systolic chf, chronic atrial Fib Clinical Indicators: Vital signs: Temp 98, RR 33, B/P 144/54, spo2 100% on 2L NC WBC/Left shift: 8.2/7.2 X-ray: "Bilateral lower lobe infiltrate and small effusion greater on the left. Correlate for pneumonia. No overt failure." 05/31 H&P Lung/Breathing assessment: "Bibasilar crackles and diminished sounds. Otherwise Lung dior clear to auscultation and percussion." Treatment: Antibiotics: Zosyn 3.375 gm IVPB Q 8 hrs O2: 2l NC Breathing Tx: Duoneb QID & 4 hrs PRN In order to capture the severity of condition, please clarify if the condition signifies and you are treating for: Aspiration Pneumonia, identify if: Due to solids or liquids Bacterial Pneumonia, specify causal organism (if known) Gram Negative Pneumonia Due to Strep Due to Staph Due to E. Coli Other bacteria (please specify) Other, please specify Unable to determine (Last Revision: November 2017) Gram Negative Pneumonia MTDD
--- NOTE | 2019-06-01 13:15 | P.PN ---
Subjective Patient is resting comfortably in bed. Quite talkative. Does not appear to be in any respiratory distress Ventricular pacing 60 beats a minute but when I reduced the ventricular pacing rate of 40 beats a minute she started conducting 121 and a sinus bradycardia is improved She was on amiodarone high-dose oral therapy along with high dose metoprolol She denies any chest discomfort should not dizzy and lightheaded she does not appear short of breath at all She has a colostomy wound which is quite excoriated and red and Dr. Dale will be looking at this White count 8.2 thousand and 1111.8, electrolytes normal BUN 36 creatinine 1.3 Impression Long-standing persistent atrial fibrillation Type 2 diabetes Hypertension Dyslipidemia Severe nonischemic cardio myopathy ejection fraction 20% Patient admitted with severe bradycardia with resting heart rate 30 beats a minute. This has improved now. Metoprolol and amiodarone on hold She has a TVP from the right internal jugular vein Suggest TSH Continue ventricle pacing Discontinue data blockers and amiodarone completely and allow her to recover Evaluation of colostomy site by general surgery Hopefully her heart rate picks up and we can avoid permanent pacing Objective - Vital Signs Vital signs: Vital Signs Temp 98.1 F 06/01/19 08:00 Pulse 62 06/01/19 11:26 Resp 16 06/01/19 11:00 BP 129/50 06/01/19 11:00 Pulse Ox 99 06/01/19 11:00 Intake & Output 05/31/19 06/01/19 06/01/19 18:59 06:59 18:59 Intake Total 20 1300 300 Output Total 500 2024 220 Balance -480 -725 80 Weight 58.06 kg 63.9 kg 63.9 kg Intake: IV 20 1100 300 Sodium Chloride 0.9% 1, 1100 300 000 ml @ 100 mls/hr IV . Q10H ISABEL Rx#:[id number] Intake, IV Titration 200 Amount Levofloxacin 750Mg-D5w 100 Pmx 750 mg In Dextrose/ Water 1 150ml.bag @ 100 mls/hr IVPB ONCE STA Rx#: [id number] Piperacillin-Tazobactam 3 100 .375 gm In Sodium Chloride 0.9% 100 ml @ 25 mls/hr IVPB Q8HR ISABEL Rx# :[id number] Output: Urine 500 2025 220 Uretheral (Thompson) 500 Other: Voiding Method Indwelling Catheter Indwelling Catheter - Labs CBC & Chem 7: 06/01/19 04:07 06/01/19 04:11 Labs: Abnormal Lab Results - Last 24 Hours (Table) 05/31/19 05/31/19 05/31/19 Range/Units 14:27 14:27 17:45 Lymphocytes # (1.0-4.8) k/uL Sodium 135 L (137-145) mmol/L Carbon Dioxide 31 H (22-30) mmol/L BUN 51 H (7-17) mg/dL Creatinine 1.47 H (0.52-1.04) mg/dL Glucose 61 L (74-99) mg/dL POC Glucose (mg/dL) 103 H (75-99) mg/dL Plasma Lactic Acid Horacio 2.2 H* (0.7-2.0) mmol/L Calcium (8.4-10.2) mg/dL Total Protein 5.7 L (6.3-8.2) g/dL Albumin 3.0 L (3.5-5.0) g/dL Urine Protein (Negative) Urine Bacteria (None) /hpf 05/31/19 06/01/19 06/01/19 Range/Units 19:05 04:07 04:11 Lymphocytes # 0.4 L (1.0-4.8) k/uL Sodium 136 L (137-145) mmol/L Carbon Dioxide (22-30) mmol/L BUN 36 H (7-17) mg/dL Creatinine 1.30 H (0.52-1.04) mg/dL Glucose 60 L (74-99) mg/dL POC Glucose (mg/dL) (75-99) mg/dL Plasma Lactic Acid Horacio (0.7-2.0) mmol/L Calcium 7.9 L (8.4-10.2) mg/dL Total Protein (6.3-8.2) g/dL Albumin (3.5-5.0) g/dL Urine Protein 1+ H (Negative) Urine Bacteria Rare H (None) /hpf 06/01/19 Range/Units 11:37 Lymphocytes # (1.0-4.8) k/uL Sodium (137-145) mmol/L Carbon Dioxide (22-30) mmol/L BUN (7-17) mg/dL Creatinine (0.52-1.04) mg/dL Glucose (74-99) mg/dL POC Glucose (mg/dL) 204 H (75-99) mg/dL Plasma Lactic Acid Horacio (0.7-2.0) mmol/L Calcium (8.4-10.2) mg/dL Total Protein (6.3-8.2) g/dL Albumin (3.5-5.0) g/dL Urine Protein (Negative) Urine Bacteria (None) /hpf
--- NOTE | 2019-06-01 14:13 | CT ---
EXAMINATION TYPE: CT abdomen pelvis wo con DATE OF EXAM: 06/01/2019 COMPARISON: None INDICATION: Abnormal stoma DLP: 614.5 mGycm, Automated exposure control for dose reduction was used. CONTRAST: 0 mL of Isovue 300. Abnormal laboratory results. Study performed with Oral Contrast TECHNIQUE: Axial images were obtained from above the diaphragm to the pubic rami in the axial plane a t 5 mm thick sections. Reconstructed images are reviewed on the computer in the coronal plane. FINDINGS: Limited CT sections are obtained the lung bases. Small bilateral pleural effusions are present. Mild cardiomegaly is present.. CT ABDOMEN: Liver: Normal Spleen: Normal Pancreas: Normal Adrenal glands: The adrenal glands are normal. Gallbladder: Normal Kidneys: No masses are evident. No hydronephrosis is present. There is a 1.9 cm cyst on the lateral left mid kidney measuring 16 Hounsfield units. Delayed images were obtained through the kidneys, wh ich remain unremarkable. Aorta: Vascular calcification is within the aorta. Inferior vena cava: Normal. CT PELVIS: There is an anterior abdominal wall hernia containing loop of colon. This appears nonobstr uctive. There is a anterior lateral left abdominal wall hernia containing multiple small bowel loops with contrast. No evidence of obstruction is evident. This appears to be associated with a possible o stomy site anterior abdomen. Oral contrast appears to extend to the level of the colon. Small amount of contrast at the level of t he rectum. No suspicious dilated loops of bowel are identified. Fecal debris is within the descending colon Appendix: Normal as visualized. Urinary bladder: Decompressed with a Thompson catheter. Genitourinary structures: Uterus and adnexal regions appear unremarkable. Osseous structures: No suspicious lytic or sclerotic lesions. IMPRESSIONS: 1. Anterior abdominal wall hernias. The larger contains multiple nondilated small bowel loops with o ral contrast adjacent to the ostomy site. 2. Small bilateral pleural effusions. 3. Mild cardiomegaly 4. Renal cyst
--- NOTE | 2019-06-01 15:37 | P.GSCN ---
History of Present Illness Consult date: 06/01/19 Reason for Consult: abnormal ostomy Requesting physician: Laila Reaves History of present illness: CHIEF COMPLAINT: abnormal ostomy HISTORY OF PRESENT ILLNESS: 73 year old patient currently admitted for bradycardia. General surgery was consulted to evaluate patients ostomy. Patient reports having a colostomy performed in 2012 due to "constipation" in [place]. She reports skin excoriation over the past 2-3 weeks surrounding her ostomy site. She currently has no stool output. Last BM was on Saturday. Patient reports painful bowel movements. PAST MEDICAL HISTORY: See list. PAST SURGICAL HISTORY: See list. SOCIAL HISTORY: No illicit drug use. REVIEW OF SYSTEMS: CONSTITUTIONAL: Denies fever or chills. HEENT: Denies blurred vision, vision changes, or eye pain. Denies hemoptysis CARDIOVASCULAR: Denies chest pain or pressure. RESPIRATORY: No shortness of breath. GASTROINTESTINAL: Refer to HPI for pertinent findings HEMATOLOGIC: Denies bleeding disorders. GENITOURINARY: Denies any blood in urine. SKIN: Reports skin irritation to ostomy PHYSICAL EXAM: VITAL SIGNS: Reviewed. GENERAL: Well-developed in no acute distress. HEENT: No sclera icterus. Extraocular movements grossly intact. Moist buccal mucosa. Head is atraumatic, normocephalic. ABDOMEN: Soft. Nontender. Ostomy site to left lower quadrant with large parastomal hernia, retracted ostomy site with very small opening remaining. No stool output noted. Surrounding skin excoriation. NEUROLOGIC: Alert and oriented. Cranial nerves II through XII grossly intact. LABORATORY DATA: WBC 8.2. Hemoglobin 11.8 ASSESSMENT: 1. Complications of colostomy site PLAN: 1. CT scan has been ordered. Await results 2. Downgrade diet to clear liquids 3. May continue to leave off ostomy appliance as patient has no stool output. If patient begins to have stool output, recommend barrier cream to be applied and larger ostomy pouch. 4. Patient will likely to require surgical revision of colostomy site 5. Will continue to follow and make recommendations patient course and CT results Nurse practitioner note has been reviewed by physician. Signing provider agrees with the documented findings, assessment, and plan of care. Past Medical History Past Medical History: Atrial Fibrillation, Heart Failure, Diabetes Mellitus, Hyperlipidemia, Hypertension, Thyroid Disorder Additional Past Medical History / Comment(s): Mild developmental delay, the patient lives in a foster home since 1990, CHF with systolic heart failure/nonischemic cardiomyopathy, chronic atrial fibrillation, on Eliquis, hypertension, hyperlipidemia, diabetes mellitus, hypothyroidism History of Any Multi-Drug Resistant Organisms: None Reported Past Surgical History: Bladder Surgery, Bowel Resection Additional Past Surgical History / Comment(s): HAS COLOSTOMY. Past Anesthesia/Blood Transfusion Reactions: Unable to Obtain Smoking Status: Never smoker - Past Family History Mother Family Medical History: Unable to Obtain Medications and Allergies Home Medications Medication Instructions Recorded Confirmed Type Atorvastatin [Lipitor] 10 mg PO HS 06/03/18 05/31/19 History Calcium Acetate [PhosLo] 667 mg PO DAILY 06/03/18 05/31/19 History Calcium Carbonate/Vitamin D3 1 tab PO DAILY 06/03/18 05/31/19 History [Calcium 600-Vit D3 400 Tablet] Levothyroxine Sodium [Synthroid] 25 mcg PO DAILY 06/03/18 05/31/19 History Magnesium Oxide [Mag-Ox] 400 mg PO BID 06/03/18 05/31/19 History Multivitamins, Thera [Multivitamin 1 tab PO DAILY 06/03/18 05/31/19 History (formulary)] Loratadine 10 mg PO DAILY 03/31/19 05/31/19 History Lisinopril [Zestril] 5 mg PO DAILY #30 tablet 04/03/19 05/31/19 Rx INSULIN LISPRO (humaLOG) [humaLOG] See Protocol SQ DIRECTED 04/11/19 05/31/19 History Amiodarone [Cordarone] 200 mg PO TID #30 tab 04/16/19 05/31/19 Rx Apixaban [Eliquis] 2.5 mg PO BID 05/31/19 05/31/19 History Insulin Glargine [Lantus] 14 unit SQ HS 05/31/19 05/31/19 History Mesalamine [Delzicol] 400 mg PO BID 05/31/19 05/31/19 History Metoprolol Tartrate [Lopressor] 25 mg PO TID 05/31/19 05/31/19 History Allergies Allergy/AdvReac Type Severity Reaction Status Date / Time No Known Allergies Allergy Verified 05/31/19 15:44 Surgical - Exam Vital Signs Temp Pulse Resp BP Pulse Ox 98.0 F 33 L 18 144/54 100 05/31/19 14:05 05/31/19 14:05 05/31/19 14:05 05/31/19 14:05 05/31/19 14:05 Results - Labs 06/01/19 04:07 06/01/19 04:11 Abnormal Lab Results - Last 24 Hours (Table) 05/31/19 05/31/19 05/31/19 Range/Units 14:27 17:45 19:05 Lymphocytes # (1.0-4.8) k/uL Sodium (137-145) mmol/L BUN (7-17) mg/dL Creatinine (0.52-1.04) mg/dL Glucose (74-99) mg/dL POC Glucose (mg/dL) 103 H (75-99) mg/dL Plasma Lactic Acid Horacio 2.2 H* (0.7-2.0) mmol/L Calcium (8.4-10.2) mg/dL Urine Protein 1+ H (Negative) Urine Bacteria Rare H (None) /hpf 06/01/19 06/01/19 06/01/19 Range/Units 04:07 04:11 11:37 Lymphocytes # 0.4 L (1.0-4.8) k/uL Sodium 136 L (137-145) mmol/L BUN 36 H (7-17) mg/dL Creatinine 1.30 H (0.52-1.04) mg/dL Glucose 60 L (74-99) mg/dL POC Glucose (mg/dL) 204 H (75-99) mg/dL Plasma Lactic Acid Horacio (0.7-2.0) mmol/L Calcium 7.9 L (8.4-10.2) mg/dL Urine Protein (Negative) Urine Bacteria (None) /hpf Diabetes panel 06/01/19 Range/Units 04:11 Sodium 136 L (137-145) mmol/L Potassium 4.8 (3.5-5.1) mmol/L Chloride 103 (98-107) mmol/L Carbon Dioxide 29 (22-30) mmol/L BUN 36 H (7-17) mg/dL Creatinine 1.30 H (0.52-1.04) mg/dL Glucose 60 L (74-99) mg/dL Calcium 7.9 L (8.4-10.2) mg/dL Thyroid panel 05/31/19 Range/Units 14:27 TSH 0.519 (0.465-4.680) mIU/L Calcium panel 06/01/19 Range/Units 04:11 Calcium 7.9 L (8.4-10.2) mg/dL Pituitary panel 05/31/19 06/01/19 Range/Units 14:27 04:11 Sodium 136 L (137-145) mmol/L Potassium 4.8 (3.5-5.1) mmol/L Chloride 103 (98-107) mmol/L Carbon Dioxide 29 (22-30) mmol/L BUN 36 H (7-17) mg/dL Creatinine 1.30 H (0.52-1.04) mg/dL Glucose 60 L (74-99) mg/dL Calcium 7.9 L (8.4-10.2) mg/dL TSH 0.519 (0.465-4.680) mIU/L Adrenal panel 06/01/19 Range/Units 04:11 Sodium 136 L (137-145) mmol/L Potassium 4.8 (3.5-5.1) mmol/L Chloride 103 (98-107) mmol/L Carbon Dioxide 29 (22-30) mmol/L BUN 36 H (7-17) mg/dL Creatinine 1.30 H (0.52-1.04) mg/dL Glucose 60 L (74-99) mg/dL Calcium 7.9 L (8.4-10.2) mg/dL
--- NOTE | 2019-06-01 15:46 | P.CNPUL ---
<Yari Rosario M - Last Filed: 06/01/19 15:46> History of Present Illness Consult date: 06/01/19 Requesting physician: Naun Colón Reason for consult: other Chief complaint: Fever, Mobitz type II History of present illness: This 73-year-old white female patient who resides in an assisted living facility in [facility], with past medical history of nonischemic cardiomyopathy with the baseline EF of 20-25%, chronic congestive heart failure, chronic A. fib on Eliquis, mild developmental delay, previous history of pneumonia,, hypertension, hyperlipidemia, inflammatory bowel disease status post bowel resection and colostomy, hypothyroidism, diabetes type 2 who presented to [facility] on 05/31/2019 for evaluation of fever, and "blue fingers". Patient denied any cough or congestion, she did have some clear rhinorrhea, she was found to be afebrile, blood pressure was stable, but when she was placed on a monitor she was noted to be bradycardic, with a rate of 30 BPM, and rhythm was noted to be Mobitz type II. Patient is on metoprolol and amiodarone a regular basis which are both on hold right now, she was previously evaluated for an AICD and was not a candidate. Heart catheterization in May 2018 showed normal coronary artery disease. At [facility] chest x-ray was completed reportedly showing possibility of left lower lobe pneumonia. Patient had a white count of 16, lactic acid of 3.7, she was given 1700 mL of normal saline in fluid boluses, she was started on empiric antibiotics in the form of Levaquin and Zosyn, and transferred to [facility] for further management, she was evaluated by cardiology and a temporary transvenous pacemaker was inserted via right IJ this morning patient's is seen in the intensive care unit. She is awake and alert, in no acute distress, she denies any difficulty breathing, denies any chest pain, she is 100% AV paced on the monitor. No fever or chills through the night, blood cultures are pending, pressure is 09/10/1958, room air pulse ox is 98, today's chest x-ray shows bilateral lower lobe infiltrates and small effusion greater on the left. Patient does have a left lower quadrant colostomy, however there is no appliance applied to it because of extensive excoriation around the ostomy site, and the appearance of the ostomy is abnormal as it has no bowel margins on the skin surface. Review of Systems All systems: negative Constitutional: Denies chills, Denies fever Eyes: denies blurred vision, denies pain Ears, nose, mouth and throat: Denies headache, Denies sore throat Cardiovascular: Denies chest pain, Denies shortness of breath Respiratory: Denies cough Gastrointestinal: Denies abdominal pain, Denies diarrhea, Denies nausea, Denies vomiting Genitourinary: Denies dysuria, Denies hematuria Musculoskeletal: Denies myalgias Integumentary: Reports wounds, Denies pruritus, Denies rash Neurological: Reports weakness, Denies numbness Psychiatric: Denies anxiety, Denies depression Endocrine: Reports fatigue, Denies weight change Past Medical History Past Medical History: Atrial Fibrillation, Heart Failure, Diabetes Mellitus, Hyperlipidemia, Hypertension, Thyroid Disorder Additional Past Medical History / Comment(s): Mild developmental delay, the patient lives in a foster home since 1990, CHF with systolic heart failure/nonischemic cardiomyopathy, chronic atrial fibrillation, on Eliquis, hypertension, hyperlipidemia, diabetes mellitus, hypothyroidism History of Any Multi-Drug Resistant Organisms: None Reported Past Surgical History: Bladder Surgery, Bowel Resection Additional Past Surgical History / Comment(s): HAS COLOSTOMY. Past Anesthesia/Blood Transfusion Reactions: Unable to Obtain Smoking Status: Never smoker - Past Family History Mother Family Medical History: Unable to Obtain Medications and Allergies Home Medications Medication Instructions Recorded Confirmed Type Atorvastatin [Lipitor] 10 mg PO HS 06/03/18 05/31/19 History Calcium Acetate [PhosLo] 667 mg PO DAILY 06/03/18 05/31/19 History Calcium Carbonate/Vitamin D3 1 tab PO DAILY 06/03/18 05/31/19 History [Calcium 600-Vit D3 400 Tablet] Levothyroxine Sodium [Synthroid] 25 mcg PO DAILY 06/03/18 05/31/19 History Magnesium Oxide [Mag-Ox] 400 mg PO BID 06/03/18 05/31/19 History Multivitamins, Thera [Multivitamin 1 tab PO DAILY 06/03/18 05/31/19 History (formulary)] Loratadine 10 mg PO DAILY 03/31/19 05/31/19 History Lisinopril [Zestril] 5 mg PO DAILY #30 tablet 04/03/19 05/31/19 Rx INSULIN LISPRO (humaLOG) [humaLOG] See Protocol SQ DIRECTED 04/11/19 05/31/19 History Amiodarone [Cordarone] 200 mg PO TID #30 tab 04/16/19 05/31/19 Rx Apixaban [Eliquis] 2.5 mg PO BID 05/31/19 05/31/19 History Insulin Glargine [Lantus] 14 unit SQ HS 05/31/19 05/31/19 History Mesalamine [Delzicol] 400 mg PO BID 05/31/19 05/31/19 History Metoprolol Tartrate [Lopressor] 25 mg PO TID 05/31/19 05/31/19 History Allergies Allergy/AdvReac Type Severity Reaction Status Date / Time No Known Allergies Allergy Verified 05/31/19 15:44 Physical Exam Vitals: Vital Signs Temp Pulse Resp BP Pulse Ox 06/01/19 08:07 58 L 06/01/19 07:57 60 06/01/19 07:00 59 L 12 123/57 98 06/01/19 06:30 60 18 118/52 98 06/01/19 06:00 60 15 100/48 99 06/01/19 05:30 60 17 106/53 97 06/01/19 05:00 60 17 122/55 97 06/01/19 04:30 58 L 26 H 124/58 97 06/01/19 04:00 98.1 F 60 22 99 06/01/19 03:30 56 L 17 125/57 97 06/01/19 03:00 60 19 118/57 98 06/01/19 02:30 60 13 96/53 98 06/01/19 02:00 60 15 124/60 98 06/01/19 01:30 60 24 112/55 99 06/01/19 01:00 60 15 127/63 97 06/01/19 00:30 60 16 130/65 98 06/01/19 00:00 97.8 F 60 14 129/65 99 05/31/19 23:30 60 12 110/60 99 05/31/19 23:00 60 16 103/58 98 05/31/19 22:30 54 L 8 L 95/45 100 05/31/19 22:00 60 14 100/51 97 05/31/19 21:33 60 18 98 05/31/19 21:30 60 22 119/76 97 05/31/19 21:00 60 17 144/62 100 05/31/19 20:49 60 05/31/19 20:38 100 05/31/19 20:37 60 05/31/19 20:30 60 16 145/68 100 05/31/19 20:00 98 F 60 13 152/70 100 05/31/19 19:30 60 13 139/74 100 05/31/19 19:15 59 L 13 145/71 100 05/31/19 19:00 60 13 132/68 100 05/31/19 18:45 60 16 131/71 99 05/31/19 18:30 59 L 12 109/51 99 05/31/19 18:15 60 13 130/73 100 05/31/19 18:00 60 12 129/66 100 05/31/19 17:47 97.9 F 60 13 05/31/19 17:07 29 L 18 154/64 100 05/31/19 16:06 30 L 18 128/45 98 05/31/19 15:13 32 L 18 102/43 100 05/31/19 15:05 29 L 18 101/48 100 05/31/19 14:31 30 L 18 119/46 100 05/31/19 14:05 98.0 F 33 L 18 144/54 100 Intake and Output 05/31/19 06/01/19 06/01/19 22:59 06:59 14:59 Intake Total 320 1000 Output Total 960 1065 Balance -640 -65 Intake: IV 320 800 Sodium Chloride 0.9% 1, 300 800 000 ml @ 100 mls/hr IV . Q10H [facility] Rx#:[id number] Intake, IV Titration 200 Amount Levofloxacin 750Mg-D5w 100 Pmx 750 mg In Dextrose/ Water 1 150ml.bag @ 100 mls/hr IVPB ONCE [facility] Rx#: [id number] Piperacillin-Tazobactam 3 100 .375 gm In Sodium Chloride 0.9% 100 ml @ 25 mls/hr IVPB Q8HR [facility] Rx# :[id number] Output: Urine 960 1065 Other: Voiding Method Indwelling Catheter Indwelling Catheter Weight 63.9 kg GENERAL EXAM: Alert, pleasant, 73-year-old white female, somewhat of a poor historian, oriented 3, comfortable in no apparent distress. HEAD: Normocephalic/atraumatic. EYES: Normal reaction of pupils, equal size. Conjunctiva pink, sclera white. NOSE: Clear with pink turbinates. THROAT: No erythema or exudates. NECK: No masses, no JVD, no thyroid enlargement, no adenopathy. Right IJ venous pacemaker in place CHEST: No chest wall deformity. Symmetrical expansion. LUNGS: Equal air entry with no crackles at the right lower base, diminished breath sounds at the left lower base CVS: Regular rate and rhythm, normal S1 and S2, no gallops, no murmurs, no rubs ABDOMEN: Soft, left lower quadrant ostomy, without the appliance, and there is extensive excoriation and some induration involving the abdominal wall. Ostomy opening has no bowel on the surface of skin. No hepatosplenomegaly, normal bowel sounds, no guarding or rigidity. EXTREMITIES: No clubbing, no edema, no cyanosis, 2+ pulses and upper and lower extremities. MUSCULOSKELETAL: Muscle strength and tone normal. SPINE: No scoliosis or deformity SKIN: No rashes CENTRAL NERVOUS SYSTEM: Alert and oriented -3. No focal deficits, tone is normal in all 4 extremities. PSYCHIATRIC: Alert and oriented -3. Appropriate affect. Intact judgment and insight. Results - Laboratory Findings CBC and BMP: 06/01/19 04:07 06/01/19 04:11 Abnormal lab findings: Abnormal Labs 05/31/19 05/31/19 05/31/19 14:27 14:27 17:45 Lymphocytes # Sodium 135 L Carbon Dioxide 31 H BUN 51 H Creatinine 1.47 H Glucose 61 L POC Glucose (mg/dL) 103 H Plasma Lactic Acid Horacio 2.2 H* Calcium Total Protein 5.7 L Albumin 3.0 L Urine Protein Urine Bacteria 05/31/19 06/01/19 06/01/19 19:05 04:07 04:11 Lymphocytes # 0.4 L Sodium 136 L Carbon Dioxide BUN 36 H Creatinine 1.30 H Glucose 60 L POC Glucose (mg/dL) Plasma Lactic Acid Horacio Calcium 7.9 L Total Protein Albumin Urine Protein 1+ H Urine Bacteria Rare H - Diagnostic Findings Chest x-ray: report reviewed, image reviewed Additional studies: EKG reviewed Assessment and Plan Plan: Assessment: #1. Symptomatic bradycardia, Mobitz type II, that is post transvenous temporary pacemaker insertion #2. Bilateral lower lobe infiltrates and small effusions, doubt pneumonia #3. Lactic acidosis, rule out infectious etiology #4. Abdominal wall excoriation, surrounding the ostomy site #5. Right lower extremity wound, chronic, possibly diabetic ulcer #6. Nonischemic cardiomyopathy with baseline EF of 20-25%, a candidate for AICD placement #7. Hypoglycemia, improved #8. Diabetes noticed type II #9. Hypothyroidism #10. 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 Chronic persistent atrial fibrillation on Eliquis #12. Hypertension #13. Hyperlipidemia Plan: Continue current antibiotic coverage, doubt presence of pneumonia, procalcitonin level, BNP level, will await the results of the blood cultures, no cough or congestion, patient is maintaining stable oxygenation on room air, afebrile, obtain influenza screen. Consult surgery for evaluation of abnormal ostomy. Patient had a temporary pacemaker inserted last night, had grown and metoprolol remain on hold, will likely discontinue Levaquin. Lactic acid has improved with IV hydration. Will surgical consultation in regards to the antibiotics and chronic wound on the right lower extremity and less ulceration involving the abdominal wall surrounding the ostomy area. We'll continue to follow. Remain in the intensive care unit. I performed a history & physical examination of the patient and discussed their management with my nurse practitioner, Yari Rosario. I reviewed the nurse practitioner's note and agree with the documented findings and plan of care. Lung sounds are positive for minimal crackles at the right lower base. The findings and the impression was discussed with the patient. I attest to the documentation by the nurse practitioner. Time with Patient: Greater than 30 <Laila Reaves - Last Filed: 06/01/19 15:49> Physical Exam Vitals: Vital Signs Temp Pulse Resp BP Pulse Ox 06/01/19 15:00 62 25 H 97/39 100 06/01/19 14:30 59 L 19 97/45 97 06/01/19 14:00 60 26 H 102/38 99 06/01/19 13:30 60 21 114/50 97 06/01/19 13:00 60 20 107/42 98 06/01/19 12:30 60 28 H 100/79 99 06/01/19 12:00 98.6 F 60 12 120/47 99 06/01/19 11:30 60 25 H 125/52 98 06/01/19 11:26 62 06/01/19 11:14 59 L 06/01/19 11:00 62 16 129/50 99 06/01/19 10:30 60 16 104/53 98 06/01/19 10:00 60 27 H 113/50 98 06/01/19 09:30 60 22 118/49 99 06/01/19 09:00 60 21 101/54 99 06/01/19 08:30 60 15 105/44 98 06/01/19 08:07 58 L 06/01/19 08:00 98.1 F 55 L 24 124/93 99 06/01/19 07:57 60 06/01/19 07:30 60 25 H 133/75 98 06/01/19 07:00 59 L 12 123/57 98 06/01/19 06:30 60 18 118/52 98 06/01/19 06:00 60 15 100/48 99 06/01/19 05:30 60 17 106/53 97 06/01/19 05:00 60 17 122/55 97 06/01/19 04:30 58 L 26 H 124/58 97 06/01/19 04:00 98.1 F 60 22 99 06/01/19 03:30 56 L 17 125/57 97 06/01/19 03:00 60 19 118/57 98 06/01/19 02:30 60 13 96/53 98 06/01/19 02:00 60 15 124/60 98 06/01/19 01:30 60 24 112/55 99 06/01/19 01:00 60 15 127/63 97 06/01/19 00:30 60 16 130/65 98 06/01/19 00:00 97.8 F 60 14 129/65 99 05/31/19 23:30 60 12 110/60 99 05/31/19 23:00 60 16 103/58 98 05/31/19 22:30 54 L 8 L 95/45 100 05/31/19 22:00 60 14 100/51 97 05/31/19 21:33 60 18 98 05/31/19 21:30 60 22 119/76 97 05/31/19 21:00 60 17 144/62 100 05/31/19 20:49 60 05/31/19 20:38 100 05/31/19 20:37 60 05/31/19 20:30 60 16 145/68 100 05/31/19 20:00 98 F 60 13 152/70 100 05/31/19 19:30 60 13 139/74 100 05/31/19 19:15 59 L 13 145/71 100 05/31/19 19:00 60 13 132/68 100 05/31/19 18:45 60 16 131/71 99 05/31/19 18:30 59 L 12 109/51 99 05/31/19 18:15 60 13 130/73 100 05/31/19 18:00 60 12 129/66 100 05/31/19 17:47 97.9 F 60 13 05/31/19 17:07 29 L 18 154/64 100 05/31/19 16:06 30 L 18 128/45 98 Intake and Output 06/01/19 06/01/19 06/01/19 06:59 14:59 22:59 Intake Total 1000 450 50 Output Total 1065 570 Balance -65 -120 50 Intake: IV 800 450 50 Sodium Chloride 0.9% 1, 800 450 50 000 ml @ 100 mls/hr IV . Q10H [facility] Rx#:[id number] Intake, IV Titration 200 Amount Levofloxacin 750Mg-D5w 100 Pmx 750 mg In Dextrose/ Water 1 150ml.bag @ 100 mls/hr IVPB ONCE [facility] Rx#: [id number] Piperacillin-Tazobactam 3 100 .375 gm In Sodium Chloride 0.9% 100 ml @ 25 mls/hr IVPB Q8HR [facility] Rx# :[id number] Output: Urine 1065 570 Other: Voiding Method Indwelling Catheter Indwelling Catheter Weight 63.9 kg 63.9 kg Results - Laboratory Findings CBC and BMP: 06/01/19 04:07 06/01/19 04:11 Abnormal lab findings: Abnormal Labs 05/31/19 05/31/19 05/31/19 14:27 14:27 17:45 Lymphocytes # Sodium 135 L Carbon Dioxide 31 H BUN 51 H Creatinine 1.47 H Glucose 61 L POC Glucose (mg/dL) 103 H Plasma Lactic Acid Horacio 2.2 H* Calcium Total Protein 5.7 L Albumin 3.0 L Urine Protein Urine Bacteria 05/31/19 06/01/1906/01/19 19:05 04:07 04:11 Lymphocytes # 0.4 L Sodium 136 L Carbon Dioxide BUN 36 H Creatinine 1.30 H Glucose 60 L POC Glucose (mg/dL) Plasma Lactic Acid Horacio Calcium 7.9 L Total Protein Albumin Urine Protein 1+ H Urine Bacteria Rare H 06/01/19 11:37 Lymphocytes # Sodium Carbon Dioxide BUN Creatinine Glucose POC Glucose (mg/dL) 204 H Plasma Lactic Acid Horacio Calcium Total Protein Albumin Urine Protein Urine Bacteria Assessment and Plan Plan: I saw this patient along with the nurse practitioner in the intensive care unit. The patient has a transvenous pacemaker in place. The patient is having some difficulties in passing bowel activity. I noted some excoriation of the skin at the ostomy site. 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 For that reason, I ordered a CAT scan of the abdomen and pelvis and a request a surgical consultation. The patient has multiple comorbidities as stated including nonischemic cardiomyopathy with an ejection fraction of 25% and the patient has an AICD in place, diabetes mellitus, hypothyroidism and previous history of inflammatory bowel disease with previous colectomy and diverting colostomy. She has chronic atrial fibrillation and she is maintained on long-term medical condition with Eliquis and she has hypertension and hyperlipidemia. We'll continue to follow. We'll obtain a surgical consultation.
[2019-06-01] MEDS ORDERED: LEVOFLOXACIN 750 MG TAB PO SCH (16:00)
[2019-06-01 16:53] LABS: Glucose,Whole Blood 240 mg/dL (75-99)
[2019-06-01 20:34] LABS: Glucose,Whole Blood 250 mg/dL (75-99)
[2019-06-01] MEDS: ATORVASTATIN 10 MG TAB PO SCH (20:44)
--- NOTE | 2019-06-01 22:38 | P.PN ---
Subjective Progress Note Date: 06/01/19 Principal diagnosis: Symptomatic bradycardia Patient is a 72-year-old female with known history of chronic atrial fibrillation on anticoagulation with Eliquis, CHF with systolic heart failure/nonischemic cardio myopathy, hypertension, hyperlipidemia, inflammatory bowel disease and hypothyroidism as well as diabetes type 2 was initially presented to [facility] with complaints of fever and also fingers turning blue. Patient had chest x-ray which showed left lower lobe pneumonia. Patient was also having lactic acidosis 2.2. Patient was given fluid bolus and started on IV antibiotics at this time. She was noted to have bradycardia and possible Mobitz type II heart block. Heart rate was in the 30s. Patient has chronic atrial fibrillation. Patient was eventually transferred to [facility] for further evaluation by cardiology. Denied any complaints of dizziness or lightheadedness while in bed. No fever no chills currently. Patient does have generalized weakness and tiredness otherwise. Patient does have chronic atrial fibrillation and was admitted to the hospital in March 2019 with rapid ventricular rate. Patient had difficulty controlling heart rate. She was initially on Cardizem drip and amiodarone drip. Patient was discharged home on amiodarone and metoprolol. Patient is also on anticoagulation with a liquids. Patient also completed 5 days of antibiotic therapy for left lower lobe pneumonia at that time. Patient was discharged to [facility] on 04/16/2019. Patient currently takes amiodarone, metoprolol. Due to significant bradycardia patient was placed on temporary pacemaker in the ER. Patient was also started on antibiotics in the form of Levaquin for possible left lower lobe pneumonia. Patient denied any complaints of abdominal pain. No nausea vomiting or diarrhea. Patient does have left abdominal wound for which she is following her surgeon. 06/01/2019 Patient is currently in the MICU. Awake alert and oriented 3. Heart rate improved to 60s now. Currently on transvenous pacemaker. Metoprolol and amiod arone on hold. Cardiology and pulmonary has seen the patient. CT of the abdominal pelvis was done to evaluate further ostomy functionality. Gen. surgery was consulted. Patient does have some stool output from the ostomy. Patient does have surrounding skin excoriation otherwise. No complains of chest pain or shortness of breath. No fever no chills. Patient is being continued on antibiotics for possible pneumonia. Current medications reviewed. Active Medications Albuterol/Ipratropium (Duoneb 0.5 Mg-3 Mg/3 Ml Soln) 3 ml INHALATION RT-QID [facility] Last Admin: 06/01/19 19:49 Dose: 3 ml Documented by: Albuterol/Ipratropium (Duoneb 0.5 Mg-3 Mg/3 Ml Soln) 3 ml INHALATION Q4H PRN PRN Reason: Shortness Of Breath Or Wheezing Apixaban (Eliquis) 2.5 mg PO BID [facility] Last Admin: 06/01/19 20:44 Dose: 2.5 mg Documented by: Atorvastatin Calcium (Lipitor) 10 mg PO HS [facility] Last Admin: 06/01/19 20:44 Dose: 10 mg Documented by: Balsalazide (Colazal) 1,500 mg PO BID [facility] Last Admin: 06/01/19 20:44 Dose: 1,500 mg Documented by: Calcium Acetate (Phoslo) 667 mg PO DAILY [facility] Last Admin: 06/01/19 08:53 Dose: 667 mg Documented by: Calcium Carbonate (Oscal 500+D) 1 each PO DAILY [facility] Last Admin: 06/01/19 08:53 Dose: 1 each Documented by: Piperacillin Sod/Tazobactam (Sod 3.375 gm/ Sodium Chloride) 100 mls @ 25 mls/hr IVPB Q8HR [facility] Stop: 06/11/19 00:01 Last Admin: 06/01/19 19:07 Dose: 25 mls/hr Documented by: Sodium Chloride (Saline 0.9%) 1,000 mls @ 100 mls/hr IV .Q10H [facility] Last Admin: 06/01/19 19:00 Dose: Not Given Documented by: Insulin Aspart (Novolog) 0 unit SQ [facility]; Protocol Last Admin: 06/01/19 20:44 Dose: 4 unit Documented by: Iopamidol (Isovue-300 (For Oral Use)) 30 ml PO Q60M PRN PRN Reason: CT Scan Stop: 06/02/19 09:50 Last Admin: 06/01/19 11:30 Dose: 30 ml Documented by: Levothyroxine Sodium (Synthroid) 25 mcg PO 0630 [facility] Last Admin: 06/01/19 06:48 Dose: 25 mcg Documented by: Loratadine (Claritin) 10 mg PO DAILY [facility] Last Admin: 06/01/19 08:53 Dose: 10 mg Documented by: Magnesium Oxide (Mag-Ox) 400 mg PO BID [facility] Last Admin: 06/01/19 20:44 Dose: 400 mg Documented by: Miscellaneous Information (Pneumonia Protocol Utilized) 1 each PO ONCE PRN PRN Reason: Per Protocol Multivitamins (Theragran) 1 each PO DAILY [facility] Last Admin: 06/01/19 09:04 Dose: 1 each Documented by: Pantoprazole Sodium (Protonix) 40 mg IV DAILY [facility] Last Admin: 06/01/19 08:53 Dose: 40 mg Documented by: Objective - Vital Signs Vital signs: Vital Signs Temp 98.8 F 06/01/19 20:00 Pulse 55 L 06/01/19 21:00 Resp 18 06/01/19 21:00 BP 91/56 06/01/19 21:00 Pulse Ox 99 06/01/19 21:00 Intake & Output 06/01/19 06/01/19 06/02/19 06:59 18:59 06:59 Intake Total 1300 650 250 Output Total 2024 670 220 Balance -725 -20 30 Weight 63.9 kg 63.9 kg Intake: IV 1100 650 250 Sodium Chloride 0.9% 1, 1100 650 250 000 ml @ 100 mls/hr IV . Q10H [facility] Rx#:[id number] Intake, IV Titration 200 Amount Levofloxacin 750Mg-D5w 100 Pmx 750 mg In Dextrose/ Water 1 150ml.bag @ 100 mls/hr IVPB ON[facility] Rx#: [id number] Piperacillin-Tazobactam 3 100 .375 gm In Sodium Chloride 0.9% 100 ml @ 25 mls/hr IVPB Q8HR [facility] Rx# :[id number] Output: Urine 2024 220 Other: Voiding Method Indwelling Catheter Indwelling Catheter Indwelling Catheter # Bowel Movements 1 - Exam PHYSICAL EXAMINATION: Patient is lying in the bed comfortably, no acute distress, awake alert and oriented.. HEENT: Normocephalic. Neck is supple. Pupils reactive. Nostrils clear. Oral cavity is moist. Ears reveal no drainage. Neck reveals no JVD, carotid bruits, or thyromegaly. CHEST EXAMINATION: Trachea is central. Symmetrical expansion. Bibasilar crackles and diminished sounds. Otherwise Lung dior clear to auscultation and percussion. CARDIAC: Normal S1, S2 with no gallops. No murmurs ABDOMEN: Soft. Left-sided abdominal wall skin excoriation around the ostomy. Bowel sounds normal. No organomegaly. No abdominal bruits. Extremities: reveal no edema. No clubbing or cyanosis Neurologically awake, alert, oriented x3 with well-coordinated movements. No focal deficits noted Skin: No rash or skin lesions. Psychiatric: Coperative. Nonsuicidal Musculoskeletal: No joint swelling or deformity. Normal range of motion. - Labs CBC & Chem 7: 06/01/19 04:07 06/01/19 04:11 Labs: Abnormal Lab Results - Last 24 Hours (Table) 06/01/19 06/01/19 06/01/19 Range/Units 04:07 04:07 04:11 Lymphocytes # 0.4 L (1.0-4.8) k/uL Sodium 136 L (137-145) mmol/L BUN 36 H (7-17) mg/dL Creatinine 1.30 H (0.52-1.04) mg/dL Glucose 60 L (74-99) mg/dL POC Glucose (mg/dL) (75-99) mg/dL Calcium 7.9 L (8.4-10.2) mg/dL Procalcitonin 1.10 H (0.02-0.09) ng/mL 06/01/19 06/01/19 06/01/19 Range/Units 11:37 16:52 20:32 Lymphocytes # (1.0-4.8) k/uL Sodium (137-145) mmol/L BUN (7-17) mg/dL Creatinine (0.52-1.04) mg/dL Glucose (74-99) mg/dL POC Glucose (mg/dL) 204 H 240 H 250 H (75-99) mg/dL Calcium (8.4-10.2) mg/dL Procalcitonin (0.02-0.09) ng/mL Microbiology - Last 24 Hours (Table) 05/31/19 18:22 Blood Culture - Preliminary Blood No Growth after 24 hours 05/31/19 19:03 Blood Culture - Preliminary Blood No Growth after 24 hours Assessment and Plan Assessment: Symptomatic bradycardia/Mobitz type II heart block. Placed on transcutaneous pacemaker initially. Successfully placed transvenous pacemaker. Possible Left lower lobe pneumonia. Unlikely sepsis. chronic CHF with systolic dysfunction. On Lasix at home.. Chronic Persistent Atrial fibrillation with rapid ventricular rate. On anticoa gulation with liquids. Metoprolol and amiodarone on hold Hypoglycemia likely due to insulin at home. Diabetes type 2 insulin-dependent Hypertension Hyperlipidemia Nonischemic cardiomyopathy Hypothyroidism History of colectomy and colostomy. Inflammatory bowel disease. Plan: Patient will be continued on telemetry monitoring. Status post transvenous pacemaker placement. Metoprolol and amiodarone is on hold. Continue with antibiotics for left lower lobe pneumonia in the form of Levaquin. Gen. surgery was consulted for possible ostomy obstruction. CT of the abdomen pelvis was done. Cardiology and pulmonary is on board. Continue to follow closely and insulin sliding scale. Further recommendations based on the clinical course. Prognosis is guarded. Time with Patient: Greater than 30
[2019-06-02] MEDS: PIPERACILLIN-TAZOBACTAM 3.375 GM in SODIUM CHLORIDE 0.9% 100 ML IVPB SCH ×3 (00:09→16:56)
[2019-06-02] MEDS: SODIUM CHLORIDE 0.9% 1,000 ML IV SCH ×2 (00:10→08:11)
[2019-06-02 04:52] LABS: Basophils % (A) 1 %; Eosinophils # (A) 0.1 k/uL (0-0.7); Eosinophils % (A) 2 %; HCT 34.6 % (34.0-46.0); HGB 11.2 gm/dL (11.4-16.0); Lymphocytes # (A) 0.5 k/uL (1.0-4.8); Lymphocytes % (A) 7 %; MCH 30.4 pg (25.0-35.0); MCHC 32.3 g/dL (31.0-37.0); MCV 94.3 fL (80.0-100.0); Mean Platelet Volume 5.8; Monocytes # (A) 0.4 k/uL (0-1.0); Monocytes % (A) 6 %; Neutrophils % (A) 81 %; Platelet Count 195 k/uL (150-450); RBC 3.67 m/uL (3.80-5.40); RDW 15.7 % (11.5-15.5); WBC 6.2 k/uL (3.8-10.6)
[2019-06-02 05:00] LABS: Calcium 7.9 mg/dL (8.4-10.2); Potassium 5.2 mmol/L (3.5-5.1)
[2019-06-02 07:00] LABS: Glucose,Whole Blood 76 mg/dL (75-99)
[2019-06-02] MEDS: LEVOTHYROXINE 25 MCG TAB PO SCH (07:00)
[2019-06-02] MEDS: INSULIN ASPART (NovoLOG) 100 UNIT/ML VIAL SQ SCH ×4 (07:00→20:34)
[2019-06-02] MEDS: IPRATROPIUM-ALBUTEROL 3 ML NEB INHALATION SCH ×4 (07:29→19:14)
--- NOTE | 2019-06-02 07:51 | XR ---
EXAMINATION TYPE: XR shoulder complete RT DATE OF EXAM: 06/02/2019 CLINICAL HISTORY: Right shoulder pain, possible injury. TECHNIQUE: Three views of the right shoulder are obtained. COMPARISON: None. FINDINGS: There is diffuse osseous demineralization. There is abnormal angulation of the scapula wit h questionable lucency. Remainder of the right shoulder demonstrates no acute fracture. Moderate acro mioclavicular arthropathy and mild glenohumeral arthropathy are seen. The acromioclavicular and monica ohumeral joint spaces appear aligned. The visualized ribs are intact and unremarkable. IMPRESSION: 1. There is abnormal angulation of the inferior scapula with questionable subtle lucency, correlate w ith point tenderness. 2. No acute fracture of the right proximal humerus, visualized ribs or visualized portion of the acro mion and clavicle.
--- NOTE | 2019-06-02 08:10 | P.PN ---
Subjective Progress Note Date: 06/02/19 On today's evaluation of 06/02/2019, the patient remains in a paced rhythm. The patient is a transvenous pacemaker in place which is being paced at the rate of 60 beats per minute. Underlying rhythm is sinus bradycardia in the low 40 range. The patient is currently off the beta arnaud enough amiodarone. No syncope. No altered mentation. No chest pain. Chest x-ray showing a small left-sided pleural effusion. Note that the patient has chronic systolic heart failure with impaired left a ejection fraction of 20-25% and she has history of nonischemic cardiomyopathy along with chronic atrial fibrillation and she was maintained on Eliquis on outpatient basis. She has also history of hypertension and hyperlipidemia and inflammatory bowel disease and she has undergone previous bowel resection and she has a colostomy in place in addition to hypothyroidism and diabetes mellitus. I was quite worried about the colostomy. 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 Based on that, I consulted general surgery. CAT scan of the abdomen and pelvis was done yesterday. The anterior abdominal wall hernia contained a loop of colon. This was not obstructed. There was also anterior lateral left abdominal wall hernia containing multiple small bowel loops with contrast. No evidence of any obstruction noted. The patient has no evidence of any bowel obstruction. There was no comment on the ostomy site made and I think this needs to be further verified by general surgery. Oral contrast extended to the level of colon. Small amount of contrast in the rectum. The cardiac catheterization that was done back in May 2080 showed a normal coronaries. The patient remains on long-term articulation with Eliquis which will be placed on hold pending surgical evaluation. The patient is being seen by general surgery. She did complain of a shoulder pain and for that shoulder x-ray will be done today. Objective - Vital Signs Vital signs: Vital Signs Temp 98.3 F 06/02/19 04:00 Pulse 60 06/02/19 07:00 Resp 20 06/02/19 07:00 BP 145/66 06/02/19 07:00 Pulse Ox 99 06/02/19 07:00 Intake & Output 06/01/19 06/02/19 06/02/19 18:59 06:59 18:59 Intake Total 650 1250 100 Output Total 670 955 100 Balance -20 295 0 Weight 63.9 kg 62.6 kg Intake: IV 650 1250 100 Piperacillin-Tazobactam 3 100 .375 gm In Sodium Chloride 0.9% 100 ml @ 25 mls/hr IVPB Q8HR [facility] Rx# :[id number] Sodium Chloride 0.9% 1, 650 1150 100 000 ml @ 100 mls/hr IV . Q10H [facility] Rx#:[id number] Output: Urine 670 955 100 Other: Voiding Method Indwelling Catheter Indwelling Catheter # Bowel Movements 1 1 - Exam GENERAL EXAM: Alert, pleasant, 73-year-old white female, somewhat of a poor historian, oriented 3, comfortable in no apparent distress. HEAD: Normocephalic/atraumatic. EYES: Normal reaction of pupils, equal size. Conjunctiva pink, sclera white. NOSE: Clear with pink turbinates. THROAT: No erythema or exudates. NECK: No masses, no JVD, no thyroid enlargement, no adenopathy. Right IJ venous pacemaker in place CHEST: No chest wall deformity. Symmetrical expansion. LUNGS: Equal air entry with no crackles at the right lower base, diminished breath sounds at the left lower base CVS: Regular rate and rhythm, normal S1 and S2, no gallops, no murmurs, no rubs ABDOMEN: Soft, left lower quadrant ostomy, without the appliance, and there is extensive excoriation and some induration involving the abdominal wall. Ostomy opening has no bowel on the surface of skin. No hepatosplenomegaly, normal bowel sounds, no guarding or rigidity. EXTREMITIES: No clubbing, no edema, no cyanosis, 2+ pulses and upper and lower extremities. MUSCULOSKELETAL: Muscle strength and tone normal. SPINE: No scoliosis or deformity SKIN: No rashes CENTRAL NERVOUS SYSTEM: Alert and oriented -3. No focal deficits, tone is normal in all 4 extremities. PSYCHIATRIC: Alert and oriented -3. Appropriate affect. Intact judgment and insight. - Labs CBC & Chem 7: 06/02/19 04:04 06/02/19 04:01 Labs: Abnormal Lab Results - Last 24 Hours (Table) 06/01/19 06/01/19 06/01/19 Range/Units 04:07 11:37 16:52 RBC (3.80-5.40) m/uL Hgb (11.4-16.0) gm/dL RDW (11.5-15.5) % Lymphocytes # (1.0-4.8) k/uL Sodium (137-145) mmol/L Potassium (3.5-5.1) mmol/L BUN (7-17) mg/dL Creatinine (0.52-1.04) mg/dL Glucose (74-99) mg/dL POC Glucose (mg/dL) 204 H 240 H (75-99) mg/dL Calcium (8.4-10.2) mg/dL Procalcitonin 1.10 H (0.02-0.09) ng/mL 06/01/19 06/02/19 06/02/19 Range/Units 20:32 04:01 04:04 RBC 3.67 L (3.80-5.40) m/uL Hgb 11.2 L (11.4-16.0) gm/dL RDW 15.7 H (11.5-15.5) % Lymphocytes # 0.5 L (1.0-4.8) k/uL Sodium 134 L (137-145) mmol/L Potassium 5.2 H (3.5-5.1) mmol/L BUN 38 H (7-17) mg/dL Creatinine 1.29 H (0.52-1.04) mg/dL Glucose 70 L (74-99) mg/dL POC Glucose (mg/dL) 250 H (75-99) mg/dL Calcium 7.9 L (8.4-10.2) mg/dL Procalcitonin (0.02-0.09) ng/mL Microbiology - Last 24 Hours (Table) 05/31/19 18:22 Blood Culture - Preliminary Blood No Growth after 24 hours 05/31/19 19:03 Blood Culture - Preliminary Blood No Growth after 24 hours Assessment and Plan Plan: #1. Symptomatic bradycardia, Mobitz type II, that is post transvenous temporary pacemaker insertion #2. Bilateral lower lobe infiltrates and small effusions, doubt pneumonia #3. Lactic acidosis, rule out infectious etiology #4. Abdominal wall excoriation, surrounding the ostomy site #5. Right lower extremity wound, chronic, possibly diabetic ulcer #6. Nonischemic cardiomyopathy with baseline EF of 20-25%, a candidate for AICD placement #7. Hypoglycemia, improved #8. Diabetes noticed type II #9. Hypothyroidism #10. 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 Chronic persistent atrial fibrillation on Eliquis #12. Hypertension #13. Hyperlipidemia Plan We'll keep the patient paced at the rate of 60. Underlying rhythm is still sinus bradycardia with possible Mobitz type II. The patient off the beta arnaud and keep the patient off the amiodarone for now. The patient will have a surgical evaluation. The ostomy needs to be checked by general surgery. We'll x-ray the right shoulder for some underlying pain. X-ray from today shows a small left sided pleural effusion. No other significant events otherwise for now. We'll continue to follow.
[2019-06-02] MEDS: CALCIUM ACETATE 667 MG CAP PO SCH (08:12)
[2019-06-02] MEDS: CALCIUM CARB-VIT D 500MG-200UN 1 EACH TAB PO SCH (08:12)
[2019-06-02] MEDS: MULTIVITAMINS, THERA 1 EACH TAB PO SCH (08:12)
[2019-06-02] MEDS: LORATADINE 10 MG TAB PO SCH (08:12)
[2019-06-02] MEDS: MAGNESIUM OXIDE 400 MG TAB PO SCH ×2 (08:12→20:34)
[2019-06-02] MEDS: PANTOPRAZOLE 40 MG/10 ML VIAL IV SCH (08:12)
[2019-06-02] MEDS: BALSALAZIDE DISODIUM 750 MG CAPSULE PO SCH ×2 (08:13→20:56)
--- NOTE | 2019-06-02 08:56 | XR ---
EXAMINATION TYPE: XR chest 1V DATE OF EXAM: 06/02/2019 COMPARISON: 06/01/2019 HISTORY: Pneumonia TECHNIQUE: Single frontal view of the chest is obtained. FINDINGS: The heart is enlarged. There is left lower lobe consolidation and bilateral small effusion s with basilar subsegmental consolidation. No overt failure. No pneumothorax. Arthropathy of the shou lder. Atherosclerotic change aorta. Diffuse osteopenia. IMPRESSION: Bilateral lower lobe infiltrate and small effusion greater on the left. Findings stable. Correlate for pneumonia. No overt failure.
--- NOTE | 2019-06-02 11:04 | P.PN ---
Subjective This is Radha Ruiz PA-C dictating a progress note on this patient The patient was interviewed and examined by me as well as by Dr. Min Case discussed with Dr. Min and he agrees with the plan of care IMPRESSION / ASSESSMENT: Symptomatic bradycardia, status post temporary transvenous pacemaker placement Nonischemic cardiomyopathy, previous echo showing EF 20 percent Persistent atrial fibrillation Type 2 diabetes Hypertension Dyslipidemia History of bowel resection and colostomy Dementia PLAN: Continue transvenous pacing VVI 50, lowering the rate to allow for recovery of intrinsic conduction Permanent pacing will be considered if her intrinsic conduction system does not recover Medical management of cardiomyopathy only HPI/interval history Patient is a 73-year-old female with past medical history significant for persi stent atrial fibrillation, type 2 diabetes, hypertension, dyslipidemia, nonischemic cardiomyopathy, colostomy, and dementia who presented with altered mental status. She was diagnosed with sepsis. She was on high doses of amiodarone and beta blockers and was found to have severe sinus bradycardia. Both medications were held and she underwent a temporary transvenous pacemaker placement. Patient seen and examined resting comfortably in bed. When her pacemaker was turned down to the VVI 40, she has underlying sinus bradycardia around 43 with intermittent pacing. Patient denies any complaints of chest pain or shortness of breath. Her colostomy does have some stool output today. EXAMINATION Temperature 98.1F, pulse 49, respirations 20, blood pressure 121/52, oxygen saturation 99% on room air Patient seen and examined resting comfortably in bed, in no acute distress Breath sounds slightly diminished bilaterally, no wheezing rhonchi or crackles noted Heart is regular, no murmurs noted No elevated JVD No lower extremity edema REVIEW OF LABS, ECG WBC 6.2, hemoglobin 11.2, platelets 195, potassium 5.2, BUN 38, creatinine 1.29 TSH within normal limits at 0.519 Objective - Vital Signs Vital signs: Vital Signs Temp 98.1 F 06/02/19 08:00 Pulse 49 L 06/02/19 10:00 Resp 25 H 06/02/19 10:00 BP 128/55 06/02/19 10:00 Pulse Ox 97 06/02/19 10:00 Intake & Output 06/01/19 06/02/19 06/02/19 18:59 06:59 18:59 Intake Total 650 1250 250 Output Total 670 955 200 Balance -20 295 50 Weight 63.9 kg 62.6 kg Intake: IV 650 1250 250 Piperacillin-Tazobactam 3 100 50 .375 gm In Sodium Chloride 0.9% 100 ml @ 25 mls/hr IVPB Q8HR [facility] Rx# :[id number] Sodium Chloride 0.9% 1, 650 1150 200 000 ml @ 50 mls/hr IV . Q20H [facility] Rx#:[id number] Output: Urine 670 955 200 Other: Voiding Method Indwelling Catheter Indwelling Catheter # Bowel Movements 1 1 - Labs CBC & Chem 7: 06/02/19 04:04 06/02/19 04:01 Labs: Abnormal Lab Results - Last 24 Hours (Table) 06/01/19 06/01/19 06/01/19 Range/Units 04:07 11:37 16:52 RBC (3.80-5.40) m/uL Hgb (11.4-16.0) gm/dL RDW (11.5-15.5) % Lymphocytes # (1.0-4.8) k/uL Sodium (137-145) mmol/L Potassium (3.5-5.1) mmol/L BUN (7-17) mg/dL Creatinine (0.52-1.04) mg/dL Glucose (74-99) mg/dL POC Glucose (mg/dL) 204 H 240 H (75-99) mg/dL Calcium (8.4-10.2) mg/dL Procalcitonin 1.10 H (0.02-0.09) ng/mL 06/01/19 06/02/19 06/02/19 Range/Units 20:32 04:01 04:04 RBC 3.67 L (3.80-5.40) m/uL Hgb 11.2 L (11.4-16.0) gm/dL RDW 15.7 H (11.5-15.5) % Lymphocytes # 0.5 L (1.0-4.8) k/uL Sodium 134 L (137-145) mmol/L Potassium 5.2 H (3.5-5.1) mmol/L BUN 38 H (7-17) mg/dL Creatinine 1.29 H (0.52-1.04) mg/dL Glucose 70 L (74-99) mg/dL POC Glucose (mg/dL) 250 H (75-99) mg/dL Calcium 7.9 L (8.4-10.2) mg/dL Procalcitonin (0.02-0.09) ng/mL Microbiology - Last 24 Hours (Table) 05/31/19 18:22 Blood Culture - Preliminary Blood No Growth after 24 hours 05/31/19 19:03 Blood Culture - Preliminary Blood No Growth after 24 hours
--- NOTE | 2019-06-02 12:03 | P.CNOR ---
History of Present Illness - [facility] Consult date: 06/02/19 Consult reason: other (Right shoulder pain) History of present illness: The patient notes a 1 day history of right posterior shoulder/thoracic pain. She denies any specific traumatic event. She denies previous shoulder problems. She did have a transvenous pacer placed through a right external jugular vein yesterday. Review of Systems Denies fevers or chills. Denies traumatic event. Notes posterior right shoulder/mid thoracic pain for one day. Constitutional: Reports as per HPI Past Medical History Past Medical History: Atrial Fibrillation, Heart Failure, Diabetes Mellitus, Hyperlipidemia, Hypertension, Thyroid Disorder Additional Past Medical History / Comment(s): Mild developmental delay, the patient lives in a foster home since 1990, CHF with systolic heart failure/nonischemic cardiomyopathy, chronic atrial fibrillation, on Eliquis, hypertension, hyperlipidemia, diabetes mellitus, hypothyroidism History of Any Multi-Drug Resistant Organisms: None Reported Past Surgical History: Bladder Surgery, Bowel Resection Additional Past Surgical History / Comment(s): HAS COLOSTOMY. Past Anesthesia/Blood Transfusion Reactions: Unable to Obtain Smoking Status: Never smoker - Past Family History Mother Family Medical History: Unable to Obtain Medications and Allergies Home Medications Medication Instructions Recorded Confirmed Type Atorvastatin [Lipitor] 10 mg PO HS 06/03/18 05/31/19 History Calcium Acetate [PhosLo] 667 mg PO DAILY 06/03/18 05/31/19 History Calcium Carbonate/Vitamin D3 1 tab PO DAILY 06/03/18 05/31/19 History [Calcium 600-Vit D3 400 Tablet] Levothyroxine Sodium [Synthroid] 25 mcg PO DAILY 06/03/18 05/31/19 History Magnesium Oxide [Mag-Ox] 400 mg PO BID 06/03/18 05/31/19 History Multivitamins, Thera [Multivitamin 1 tab PO DAILY 06/03/18 05/31/19 History (formulary)] Loratadine 10 mg PO DAILY 03/31/19 05/31/19 History Lisinopril [Zestril] 5 mg PO DAILY #30 tablet 04/03/19 05/31/19 Rx INSULIN LISPRO (humaLOG) [humaLOG] See Protocol SQ DIRECTED 04/11/19 05/31/19 History Amiodarone [Cordarone] 200 mg PO TID #30 tab 04/16/19 05/31/19 Rx Apixaban [Eliquis] 2.5 mg PO BID 05/31/19 05/31/19 History Insulin Glargine [Lantus] 14 unit SQ HS 05/31/19 05/31/19 History Mesalamine [Delzicol] 400 mg PO BID 05/31/19 05/31/19 History Metoprolol Tartrate [Lopressor] 25 mg PO TID 05/31/19 05/31/19 History Allergies Allergy/AdvReac Type Severity Reaction Status Date / Time No Known Allergies Allergy Verified 05/31/19 15:44 Physical Examination - Shoulder right Appearance: normal (No gross motor or sensory deficits right upper extremity, nontender right elbow and wrist) Tenderness with palpation: none (Nontender posterior scapula, tender mid th oracic spine) Pain: with forward flexion (Mild discomfort with active forward elevation) ROM: forward flexion: 100 degrees (Actively, 160 passively) ROM: external rotation: 50 degrees Strength: abduction: 4/5 Strength: external rotation: 4/5 Tests: internal impingement tests: positive Apprehension: anterior apprehension present: no, posterior apprehension present: no Results - Labs Labs: Abnormal Lab Results - Last 24 Hours (Table) 06/01/19 06/01/19 06/01/19 Range/Units 04:07 16:52 20:32 RBC (3.80-5.40) m/uL Hgb (11.4-16.0) gm/dL RDW (11.5-15.5) % Lymphocytes # (1.0-4.8) k/uL Sodium (137-145) mmol/L Potassium (3.5-5.1) mmol/L BUN (7-17) mg/dL Creatinine (0.52-1.04) mg/dL Glucose (74-99) mg/dL POC Glucose (mg/dL) 240 H 250 H (75-99) mg/dL Calcium (8.4-10.2) mg/dL Procalcitonin 1.10 H (0.02-0.09) ng/mL 06/02/19 06/02/19 Range/Units 04:01 04:04 RBC 3.67 L (3.80-5.40) m/uL Hgb 11.2 L (11.4-16.0) gm/dL RDW 15.7 H (11.5-15.5) % Lymphocytes # 0.5 L (1.0-4.8) k/uL Sodium 134 L (137-145) mmol/L Potassium 5.2 H (3.5-5.1) mmol/L BUN 38 H (7-17) mg/dL Creatinine 1.29 H (0.52-1.04) mg/dL Glucose 70 L (74-99) mg/dL POC Glucose (mg/dL) (75-99) mg/dL Calcium 7.9 L (8.4-10.2) mg/dL Procalcitonin (0.02-0.09) ng/mL Microbiology - Last 24 Hours (Table) 05/31/19 18:22 Blood Culture - Preliminary Blood No Growth after 24 hours 05/31/19 19:03 Blood Culture - Preliminary Blood No Growth after 24 hours H & H 06/01/19 06/02/19 Range/Units 04:07 04:04 Hgb 11.8 11.2 L (11.4-16.0) gm/dL Hct 36.7 34.6 (34.0-46.0) % Result Diagrams: 06/02/19 04:04 06/02/19 04:01 - Diagnostic results Shoulder x-ray: image reviewed (Mild irregularity inferior scapula, diminished humeral head to acromial distance) Assessment and Plan Assessment: Right shoulder pain/likely chronic rotator cuff tear Plan: At this point the majority of her symptoms appear to be over the thoracic spine, and she may benefit from further imaging/possible spine consultation. Recommend conservative management with analgesics. Other considerations would be referred pain from her cervical spine/recent transvenous pacer placement. Time with Patient: Greater than 30
[2019-06-02 12:04] LABS: Glucose,Whole Blood 179 mg/dL (75-99)
--- NOTE | 2019-06-02 13:32 | P.PN ---
<Ofelia Correa A - Last Filed: 06/02/19 13:31> Subjective Progress Note Date: 06/02/19 CHIEF COMPLAINT: abnormal ostomy HISTORY OF PRESENT ILLNESS: Patient examined at the bedside. She is tolerating clear liquid diet. She did have a few stools via her ostomy. Denies nausea or v omiting. PHYSICAL EXAM: VITAL SIGNS: Reviewed. GENERAL: Well-developed in no acute distress. HEENT: No sclera icterus. Extraocular movements grossly intact. Moist buccal mucosa. Head is atraumatic, normocephalic. ABDOMEN: Soft. Nontender. Ostomy site to left lower quadrant with large parastomal hernia, retracted ostomy site with very small opening remaining. No stool output noted. Surrounding skin excoriation. NEUROLOGIC: Alert and oriented. Cranial nerves II through XII grossly intact. ASSESSMENT: 1. Complications of colostomy site PLAN: 1. Continue clear liquid diet. NPO at midnight 2. Discontinue Eliquis. Ok from surgical standpoint from Heparin drip if needed until surgery. 3. Patient will be scheduled for revision of colostomy and repair of parastomal hernia tomorrow with Dr. Quintanilla Nurse practitioner note has been reviewed by physician. Signing provider agrees with the documented findings, assessment, and plan of care. Objective - Vital Signs Vital signs: Vital Signs Temp 98.1 F 06/02/19 08:00 Pulse 51 L 06/02/19 11:13 Resp 18 06/02/19 11:13 BP 141/65 06/02/19 11:00 Pulse Ox 98 06/02/19 11:00 Intake & Output 06/01/19 06/02/19 06/02/19 18:59 06:59 18:59 Intake Total 650 1250 400 Output Total 670 955 450 Balance -20 295 -50 Weight 63.9 kg 62.6 kg Intake: IV 650 1250 400 Piperacillin-Tazobactam 3 100 150 .375 gm In Sodium Chloride 0.9% 100 ml @ 25 mls/hr IVPB Q8HR [facility] Rx# :[id number] Sodium Chloride 0.9% 1, 650 1150 250 000 ml @ 50 mls/hr IV . Q20H [facility] Rx#:[id number] Output: Urine 670 955 450 Other: Voiding Method Indwelling Catheter Indwelling Catheter Indwelling Catheter # Bowel Movements 1 1 - Labs CBC & Chem 7: 06/02/19 04:04 06/02/19 04:01 Labs: Abnormal Lab Results - Last 24 Hours (Table) 06/01/19 06/01/19 06/01/19 Range/Units 04:07 16:52 20:32 RBC (3.80-5.40) m/uL Hgb (11.4-16.0) gm/dL RDW (11.5-15.5) % Lymphocytes # (1.0-4.8) k/uL Sodium (137-145) mmol/L Potassium (3.5-5.1) mmol/L BUN (7-17) mg/dL Creatinine (0.52-1.04) mg/dL Glucose (74-99) mg/dL POC Glucose (mg/dL) 240 H 250 H (75-99) mg/dL Calcium (8.4-10.2) mg/dL Procalcitonin 1.10 H (0.02-0.09) ng/mL 06/02/19 06/02/19 Range/Units 04:01 04:04 RBC 3.67 L (3.80-5.40) m/uL Hgb 11.2 L (11.4-16.0) gm/dL RDW 15.7 H (11.5-15.5) % Lymphocytes # 0.5 L (1.0-4.8) k/uL Sodium 134 L (137-145) mmol/L Potassium 5.2 H (3.5-5.1) mmol/L BUN 38 H (7-17) mg/dL Creatinine 1.29 H (0.52-1.04) mg/dL Glucose 70 L (74-99) mg/dL POC Glucose (mg/dL) (75-99) mg/dL Calcium 7.9 L (8.4-10.2) mg/dL Procalcitonin (0.02-0.09) ng/mL Microbiology - Last 24 Hours (Table) 05/31/19 18:22 Blood Culture - Preliminary Blood No Growth after 24 hours 05/31/19 19:03 Blood Culture - Preliminary Blood No Growth after 24 hours <Cedric Quintanilla - Last Filed: 06/03/19 15:23> Objective - Vital Signs Vital signs: Vital Signs Temp 98.5 F 10/16/19 12:00 Pulse 100 06/03/19 15:00 Resp 21 06/03/19 15:00 BP 139/84 06/03/19 15:00 Pulse Ox 97 06/03/19 15:00 Intake & Output 06/02/19 06/03/19 06/03/19 18:59 06:59 18:59 Intake Total 725 650 550 Output Total 1665 1265 555 Balance -940 -615 -5 Weight 62.2 kg Intake: IV 725 650 550 Piperacillin-Tazobactam 3 225 100 100 .375 gm In Sodium Chloride 0.9% 100 ml @ 25 mls/hr IVPB Q8HR [facility] Rx# :[id number] Sodium Chloride 0.9% 1, 500 550 450 000 ml @ 50 mls/hr IV . Q20H [facility] Rx#:[id number] Output: Urine 1665 1265 555 Other: Voiding Method Indwelling Catheter Indwelling Catheter Indwelling Catheter # Bowel Movements 1 1 - Labs CBC & Chem 7: 06/03/19 04:40 06/03/19 04:40 Labs: Abnormal Lab Results - Last 24 Hours (Table) 06/02/19 06/02/19 06/03/19 Range/Units 17:04 20:23 04:40 MCHC 30.7 L (31.0-37.0) g/dL RDW 16.0 H (11.5-15.5) % Lymphocytes # 0.6 L (1.0-4.8) k/uL Sodium (137-145) mmol/L BUN (7-17) mg/dL Creatinine (0.52-1.04) mg/dL POC Glucose (mg/dL) 193 H 223 H (75-99) mg/dL Calcium (8.4-10.2) mg/dL 06/03/19 06/03/19 Range/Units 04:40 11:45 MCHC (31.0-37.0) g/dL RDW (11.5-15.5) % Lymphocytes # (1.0-4.8) k/uL Sodium 132 L (137-145) mmol/L BUN 27 H (7-17) mg/dL Creatinine 1.10 H (0.52-1.04) mg/dL POC Glucose (mg/dL) 107 H (75-99) mg/dL Calcium 7.9 L (8.4-10.2) mg/dL Microbiology - Last 24 Hours (Table) 05/31/19 18:22 Blood Culture - Preliminary Blood No Growth after 48 hours 05/31/19 19:03 Blood Culture - Preliminary Blood No Growth after 48 hours
[2019-06-02] MEDS ORDERED: cloNIDine 0.1 MG/24HR PATCH TRANSDERM SCH (16:45)
[2019-06-02 17:06] LABS: Glucose,Whole Blood 193 mg/dL (75-99)
[2019-06-02 20:25] LABS: Glucose,Whole Blood 223 mg/dL (75-99)
[2019-06-02] MEDS: ATORVASTATIN 10 MG TAB PO SCH (20:34)
--- NOTE | 2019-06-02 22:32 | P.PN ---
Subjective Progress Note Date: 06/02/19 Principal diagnosis: Symptomatic bradycardia Patient is a 72-year-old female with known history of chronic atrial fibrillation on anticoagulation with Eliquis, CHF with systolic heart failure/nonischemic cardio myopathy, hypertension, hyperlipidemia, inflammatory bowel disease and hypothyroidism as well as diabetes type 2 was initially presented to [facility] with complaints of fever and also fingers turning blue. Patient had chest x-ray which showed left lower lobe pneumonia. Patient was also having lactic acidosis 2.2. Patient was given fluid bolus and started on IV antibiotics at this time. She was noted to have bradycardia and possible Mobitz type II heart block. Heart rate was in the 30s. Patient has chronic atrial fibrillation. Patient was eventually transferred to [facility] for further evaluation by cardiology. Denied any complaints of dizziness or lightheadedness while in bed. No fever no chills currently. Patient does have generalized weakness and tiredness otherwise. Patient does have chronic atrial fibrillation and was admitted to the hospital in March 2019 with rapid ventricular rate. Patient had difficulty controlling heart rate. She was initially on Cardizem drip and amiodarone drip. Patient was discharged home on amiodarone and metoprolol. Patient is also on anticoagulation with a liquids. Patient also completed 5 days of antibiotic therapy for left lower lobe pneumonia at that time. Patient was discharged to [facility] on 04/16/2019. Patient currently takes amiodarone, metoprolol. Due to significant bradycardia patient was placed on temporary pacemaker in the ER. Patient was also started on antibiotics in the form of Levaquin for possible left lower lobe pneumonia. Patient denied any complaints of abdominal pain. No nausea vomiting or diarrhea. Patient does have left abdominal wound for which she is following her surgeon. 06/01/2019 Patient is currently in the MICU. Awake alert and oriented 3. Heart rate improved to 60s now. Currently on transvenous pacemaker. Metoprolol and amiod arone on hold. Cardiology and pulmonary has seen the patient. CT of the abdominal pelvis was done to evaluate further ostomy functionality. Gen. surgery was consulted. Patient does have some stool output from the ostomy. Patient does have surrounding skin excoriation otherwise. No complains of chest pain or shortness of breath. No fever no chills. Patient is being continued on antibiotics for possible pneumonia. 06/02/2019 Patient is currently in the MICU. Currently denied any complaints of chest pain or worsening shortness of breath. Heart rate improved to 80s now. Patient is currently on transvenous pacemaker. Cardiology recommends to continue transvenous pacemaker and monitor for intrinsic conduction system recovery. Patient is having minimal stool output from the colostomy. General surgery is planning for colostomy repair and also repair of parastomal hernia. No fever no chills. No nausea no vomiting. No headache or dizziness or lightheadedness. Patient does complain of discomfort and the dominant. Current medications reviewed. Active Medications Albuterol/Ipratropium (Duoneb 0.5 Mg-3 Mg/3 Ml Soln) 3 ml INHALATION RT-QID [facility] Last Admin: 06/01/19 19:49 Dose: 3 ml Documented by: Albuterol/Ipratropium (Duoneb 0.5 Mg-3 Mg/3 Ml Soln) 3 ml INHALATION Q4H PRN PRN Reason: Shortness Of Breath Or Wheezing Apixaban (Eliquis) 2.5 mg PO BID [facility] Last Admin: 06/01/19 20:44 Dose: 2.5 mg Documented by: Atorvastatin Calcium (Lipitor) 10 mg PO HS [facility] Last Admin: 06/01/19 20:44 Dose: 10 mg Documented by: Balsalazide (Colazal) 1,500 mg PO BID [facility] Last Admin: 06/01/19 20:44 Dose: 1,500 mg Documented by: Calcium Acetate (Phoslo) 667 mg PO DAILY [facility] Last Admin: 06/01/19 08:53 Dose: 667 mg Documented by: Calcium Carbonate (Oscal 500+D) 1 each PO DAILY [facility] Last Admin: 06/01/19 08:53 Dose: 1 each Documented by: Piperacillin Sod/Tazobactam (Sod 3.375 gm/ Sodium Chloride) 100 mls @ 25 mls/hr IVPB Q8HR [facility] Stop: 06/11/19 00:01 Last Admin: 06/01/19 19:07 Dose: 25 mls/hr Documented by: Sodium Chloride (Saline 0.9%) 1,000 mls @ 100 mls/hr IV .Q10H [facility] Last Admin: 06/01/19 19:00 Dose: Not Given Documented by: Insulin Aspart (Novolog) 0 unit SQ ACHS [facility]; Protocol Last Admin: 06/01/19 20:44 Dose: 4 unit Documented by: Iopamidol (Isovue-300 (For Oral Use)) 30 ml PO Q60M PRN PRN Reason: CT Scan Stop: 06/02/19 09:50 Last Admin: 06/01/19 11:30 Dose: 30 ml Documented by: Levothyroxine Sodium (Synthroid) 25 mcg PO 0630 [facility] Last Admin: 06/01/19 06:48 Dose: 25 mcg Documented by: Loratadine (Claritin) 10 mg PO DAILY [facility] Last Admin: 06/01/19 08:53 Dose: 10 mg Documented by: Magnesium Oxide (Mag-Ox) 400 mg PO BID [facility] Last Admin: 06/01/19 20:44 Dose: 400 mg Documented by: Miscellaneous Information (Pneumonia Protocol Utilized) 1 each PO ONCE PRN PRN Reason: Per Protocol Multivitamins (Theragran) 1 each PO DAILY [facility] Last Admin: 06/01/19 09:04 Dose: 1 each Documented by: Pantoprazole Sodium (Protonix) 40 mg IV DAILY [facility] Last Admin: 06/01/19 08:53 Dose: 40 mg Documented by: Objective - Vital Signs Vital signs: Vital Signs Temp 98.1 F 06/02/19 08:00 Pulse 112 H 06/02/19 15:26 Resp 18 06/02/19 15:26 BP 130/88 06/02/19 15:00 Pulse Ox 99 06/02/19 15:00 Intake & Output 06/01/19 06/02/19 06/02/19 18:59 06:59 18:59 Intake Total 650 1250 400 Output Total 670 955 450 Balance -20 295 -50 Weight 63.9 kg 62.6 kg Intake: IV 650 1250 400 Piperacillin-Tazobactam 3 100 150 .375 gm In Sodium Chloride 0.9% 100 ml @ 25 mls/hr IVPB Q8HR [facility] Rx# :[id number] Sodium Chloride 0.9% 1, 650 1150 250 000 ml @ 50 mls/hr IV . Q20H [facility] Rx#:[id number] Output: Urine 670 955 450 Other: Voiding Method Indwelling Catheter Indwelling Catheter Indwelling Catheter # Bowel Movements 1 1 - Exam PHYSICAL EXAMINATION: Patient is lying in the bed comfortably, no acute distress, awake alert and oriented.. HEENT: Normocephalic. Neck is supple. Pupils reactive. Nostrils clear. Oral cavity is moist. Ears reveal no drainage. Neck reveals no JVD, carotid bruits, or thyromegaly. CHEST EXAMINATION: Trachea is central. Symmetrical expansion. Bibasilar crackles and diminished sounds. Otherwise Lung dior clear to auscultation and percussion. CARDIAC: Normal S1, S2 with no gallops. No murmurs ABDOMEN: Soft. Left-sided abdominal wall skin excoriation around the ostomy. Bowel sounds normal. No organomegaly. No abdominal bruits. Extremities: reveal no edema. No clubbing or cyanosis Neurologically awake, alert, oriented x3 with well-coordinated movements. No focal deficits noted Skin: No rash or skin lesions. Psychiatric: Coperative. Nonsuicidal Musculoskeletal: No joint swelling or deformity. Normal range of motion. - Labs CBC & Chem 7: 06/02/19 04:04 06/02/19 04:01 Labs: Abnormal Lab Results - Last 24 Hours (Table) 06/01/19 06/01/19 06/02/19 Range/Units 04:07 20:32 04:01 RBC (3.80-5.40) m/uL Hgb (11.4-16.0) gm/dL RDW (11.5-15.5) % Lymphocytes # (1.0-4.8) k/uL Sodium 134 L (137-145) mmol/L Potassium 5.2 H (3.5-5.1) mmol/L BUN 38 H (7-17) mg/dL Creatinine 1.29 H (0.52-1.04) mg/dL Glucose 70 L (74-99) mg/dL POC Glucose (mg/dL) 250 H (75-99) mg/dL Calcium 7.9 L (8.4-10.2) mg/dL Procalcitonin 1.10 H (0.02-0.09) ng/mL 06/02/19 06/02/19 Range/Units 04:04 12:02 RBC 3.67 L (3.80-5.40) m/uL Hgb 11.2 L (11.4-16.0) gm/dL RDW 15.7 H (11.5-15.5) % Lymphocytes # 0.5 L (1.0-4.8) k/uL Sodium (137-145) mmol/L Potassium (3.5-5.1) mmol/L BUN (7-17) mg/dL Creatinine (0.52-1.04) mg/dL Glucose (74-99) mg/dL POC Glucose (mg/dL) 179 H (75-99) mg/dL Calcium (8.4-10.2) mg/dL Procalcitonin (0.02-0.09) ng/mL Microbiology - Last 24 Hours (Table) 05/31/19 18:22 Blood Culture - Preliminary Blood No Growth after 24 hours 05/31/19 19:03 Blood Culture - Preliminary Blood No Growth after 24 hours Assessment and Plan Assessment: Symptomatic bradycardia/Mobitz type II heart block. Placed on transcutaneous pacemaker initially. Successfully placed transvenous pacemaker. Possible Left lower lobe pneumonia. Unlikely sepsis. chronic CHF with systolic dysfunction. On Lasix at home.. Chronic Persistent Atrial fibrillation with rapid ventricular rate. On anticoagulation with liquids. Metoprolol and amiodarone on hold Hypoglycemia likely due to insulin at home. Diabetes type 2 insulin-dependent Hypertension Hyperlipidemia Nonischemic cardiomyopathy Hypothyroidism History of colectomy and colostomy. Para stomal hernia. Inflammatory bowel disease. Plan: Patient will be continued on telemetry monitoring. Status post transvenous pacemaker placement. Metoprolol and amiodarone is on hold. Continue with antibiotics for left lower lobe pneumonia in the form of Levaquin. Anticoagulation is on hold due to surge ry tomorrow. Gen. surgery is following.. Cardiology and pulmonary is on board. Continue to follow closely and insulin sliding scale. Further recommendations based on the clinical course. Prognosis is guarded. Time with Patient: Greater than 30
[2019-06-03] MEDS: INSULIN ASPART (NovoLOG) 100 UNIT/ML VIAL SQ SCH ×4 (07:33→20:28)
[2019-06-03] MEDS: PIPERACILLIN-TAZOBACTAM 3.375 GM in SODIUM CHLORIDE 0.9% 100 ML IVPB SCH ×4 (07:33→23:26)
[2019-06-03] MEDS: LEVOTHYROXINE 25 MCG TAB PO SCH (07:33)
[2019-06-03] MEDS: SODIUM CHLORIDE 0.9% 1,000 ML IV SCH (07:33)
[2019-06-03 07:48] LABS: Anisocytosis Slight; Basophils # (A) 0.1 k/uL (0-0.2); Basophils % (A) 1 %; Eosinophils # (A) 0.1 k/uL (0-0.7); Eosinophils % (A) 2 %; HCT 37.7 % (34.0-46.0); HGB 11.6 gm/dL (11.4-16.0); Lymphocytes # (A) 0.6 k/uL (1.0-4.8); Lymphocytes % (A) 10 %; MCH 28.9 pg (25.0-35.0); MCHC 30.7 g/dL (31.0-37.0); MCV 94.2 fL (80.0-100.0); Mean Platelet Volume 6.6; Monocytes # (A) 0.4 k/uL (0-1.0); Monocytes % (A) 6 %; Neutrophils # (A) 5.1 k/uL (1.3-7.7); Neutrophils % (A) 79 %; Platelet Count 167 k/uL (150-450); RBC 4.01 m/uL (3.80-5.40); WBC 6.5 k/uL (3.8-10.6)
[2019-06-03] MEDS: IPRATROPIUM-ALBUTEROL 3 ML NEB INHALATION SCH ×4 (07:52→21:27)
[2019-06-03 08:04] LABS: Calcium 7.9 mg/dL (8.4-10.2); Potassium 4.8 mmol/L (3.5-5.1)
[2019-06-03] MEDS: MAGNESIUM OXIDE 400 MG TAB PO SCH ×2 (08:26→20:28)
[2019-06-03] MEDS: PANTOPRAZOLE 40 MG/10 ML VIAL IV SCH (08:26)
--- NOTE | 2019-06-03 08:31 | XR ---
EXAMINATION TYPE: XR chest 1V DATE OF EXAM: 06/03/2019 COMPARISON: Prior chest x-ray 06/02/2019 HISTORY: Pneumonia, follow-up TECHNIQUE: Single frontal view of the chest is obtained. FINDINGS: The heart remains enlarged. Transvenous pacemaker shows the distal tip of the lead within the right ventricle region. No evident pneumothorax. Blunting of the costophrenic angles and obscured hemidiaphragms again noted. Bibasilar increased density is present. IMPRESSION: Cardiomegaly with basilar effusions.
--- NOTE | 2019-06-03 09:12 | P.PN ---
Subjective Progress Note Date: 06/03/19 On today's evaluation of 06/03/2019 I'm seeing this patient for a follow-up. The patient's cardiac rhythm today's atrial fibrillation and her HR has picked up nicely and currently is in the mid 90s. Noted the patient was in second- degree AV block and she was requiring ventricular pacing as the patient was having symptomatic bradycardia. She was taken off the beta arnaud. She was taken off the amiodarone. She is also off the antibiotic ventilation for now as the patient is going to the operating room today to undergo a revision of the colostomy and repair of the incisional hernia. Noted the patient was having significant difficulties as the colostomy has expected under the skin and was acting more like a enterocutaneous fistula with the stomal opening being quite small. She is awake and alert. She has no specific complaints. She is a bit nervous about the surgery. She is on no medication to control her rate. Her heart rate currently is in the mid 90s and as mentioned is in atrial fibrillation. No other significant events overnight. She is receiving IV fluids in the form of normal saline at rate of 50 mL an hour. She is on empiric antibiotic coverage with IV Zosyn. She is nothing by mouth awaiting bowel surgery. The patient was also seen by orthopedic surgery regarding her right shoulder pain. She was assessed to have a right shoulder rotator cuff tear. There was advised to treat this conservatively with analgesics. The patient still has her transvenous pacemaker in place Currently on VVI 50 Objective - Vital Signs Vital signs: Vital Signs Temp 98.4 F 06/03/19 08:00 Pulse 87 06/03/19 08:03 Resp 23 06/03/19 08:00 BP 129/80 06/03/19 08:00 Pulse Ox 100 06/03/19 08:00 Intake & Output 06/02/19 06/03/19 06/03/19 18:59 06:59 18:59 Intake Total 725 650 100 Output Total 1665 1265 190 Balance -940 -615 -90 Weight 62.2 kg Intake: IV 725 650 100 Piperacillin-Tazobactam 3 225 100 .375 gm In Sodium Chloride 0.9% 100 ml @ 25 mls/hr IVPB Q8HR [facility] Rx# :[id number] Sodium Chloride 0.9% 1, 500 550 100 000 ml @ 50 mls/hr IV . Q20H [facility] Rx#:[id number] Output: Urine 1665 1265 190 Other: Voiding Method Indwelling Catheter Indwelling Catheter # Bowel Movements 1 1 - Exam GENERAL EXAM: Alert, pleasant, 73-year-old white female, somewhat of a poor historian, oriented 3, comfortable in no apparent distress. HEAD: Normocephalic/atraumatic. EYES: Normal reaction of pupils, equal size. Conjunctiva pink, sclera white. NOSE: Clear with pink turbinates. THROAT: No erythema or exudates. NECK: No masses, no JVD, no thyroid enlargement, no adenopathy. Right IJ venous pacemaker in place VVI 50 CHEST: No chest wall deformity. Symmetrical expansion. LUNGS: Equal air entry with no crackles at the right lower base, diminished breath sounds at the left lower base CVS: His atrial fibrillation, irregular rhythm, irregular S1 and S2, no gallops, no murmurs, no rubs ABDOMEN: Soft, left lower quadrant ostomy, without the appliance, and there is extensive excoriation and some induration involving the abdominal wall. Ostomy opening has no bowel on the surface of skin. No hepatosplenomegaly, normal bowel sounds, no guarding or rigidity. EXTREMITIES: No clubbing, no edema, no cyanosis, 2+ pulses and upper and lower extremities. MUSCULOSKELETAL: Muscle strength and tone normal. SPINE: No scoliosis or deformity SKIN: No rashes CENTRAL NERVOUS SYSTEM: Alert and oriented -3. No focal deficits, tone is normal in all 4 extremities. PSYCHIATRIC: Alert and oriented -3. Appropriate affect. Intact judgment and insight. - Labs CBC & Chem 7: 06/02/19 04:04 06/02/19 04:01 Labs: Abnormal Lab Results - Last 24 Hours (Table) 06/02/19 06/02/19 06/02/19 Range/Units 12:02 17:04 20:23 POC Glucose (mg/dL) 179 H 193 H 223 H (75-99) mg/dL Microbiology - Last 24 Hours (Table) 05/31/19 18:22 Blood Culture - Preliminary Blood No Growth after 48 hours 05/31/19 19:03 Blood Culture - Preliminary Blood No Growth after 48 hours Assessment and Plan Plan: #1. Symptomatic bradycardia, Mobitz type II recovered and this was drug and he was essentially due to a combination of metoprolol and amiodarone. Both medications were discontinued. The patient is back to her normal rhythm which is in atrial fibrillation with a heart rate ranging between 9200 beats per minute. She is off metoprolol. She is off the amiodarone for now. She is also off anticoagulation pending bowel surgery. #2. Bilateral lower lobe infiltrates and small effusions, doubt pneumonia #3. Lactic acidosis, recovered #4. Abnormal colostomy stoma, retracted under the skin with a stoma being quite narrow. The stoma itself is distracted and the patient has also a parastomal hernia and incisional hernia. The patient will be taken to the operating room today by general surgery for repair of these abnormalities. #5. Right lower extremity wound, chronic, possibly diabetic ulcer #6. Nonischemic cardiomyopathy with baseline EF of 20-25%, a candidate for AICD placement #7. Hypoglycemia, improved #8. Diabetes Mellitus type II #9. Hypothyroidism #10. Inflammatory bowel disease status post colectomy and colostomy #11. Chronic persistent atrial fibrillation on Eliquis , currently off anticoagulation. #12. Hypertension #13. Hyperlipidemia Plan Transvenous pacemaker VVI 50. The patient's rhythm has gone back to atrial fibrillation without any significant bradycardia. The patient is currently off metoprolol and amiodarone. The patient is also off Eliquis pending bowel surgery with repair of a parastomal hernia and revision of colostomy. She is hemodynamically stable. She'll be coming back to the ICU following her surgery. She is currently nothing by mouth. Renal function stable with a creatinine of 1.1
[2019-06-03] MEDS: BALSALAZIDE DISODIUM 750 MG CAPSULE PO SCH ×2 (09:37→20:28)
[2019-06-03 11:47] LABS: Glucose,Whole Blood 107 mg/dL (75-99)
--- NOTE | 2019-06-03 12:49 | P.PN ---
Subjective This is Radha Ruiz PA-C dictating a progress note on this patient The patient was interviewed and examined by me as well as by Dr. Min Case discussed with Dr. Min and he agrees with the plan of care IMPRESSION / ASSESSMENT: symptomatic bradycardia secondary to amiodarone and metoprolol, medications being held, status post temporary transvenous pacemaker, patient is currently in atrial fibrillation Persistent atrial fibrillation, rates in the 90s nonischemic cardiomyopathy, previous echo showing EF 20% Hypertension, blood pressure improved Dyslipidemia diabetes History of bowel resection and colostomy Dementia PLAN: keep the transvenous pacemaker in place and reevaluate after surgery hold off on metoprolol for now, will reevaluate rates after surgery anticoagulation on hold for surgery medical management for cardiomyopathy only continue to monitor the patient closely HPI/interval history Patient is a 73-year-old female with past medical history significant for persistent atrial fibrillation, type 2 diabetes, hypertension, dyslipidemia, nonischemic cardiomyopathy, colostomy, and dementia who presented with AMS and was admitted for treatment of sepsis. She was found to have significant sinus bradycardia and underwent a temporary transvenous pacemaker placement. yesterday she went into atrial fibrillation. Her rates have been the 90s. She is still off metoprolol. She was also hypertensive and we started her on a clonidine patch which has improved her blood pressure. She is scheduled to have a hernia repair today. Patient seen and examined resting comfortably in bed. states she is nervous about her surgery. Denies any chest pain, palpitation or shortness of breath. EXAMINATION temperature 98.5F, pulse 103, respirations 20, blood pressure 139/104, oxygen saturation 96% on room air Patient seen and examined resting comfortably in bed, in no acute distress breath sounds slightly diminished but clear heart is irregular and slightly tachycardic no elevated JVD No lower extremity edema REVIEW OF LABS, ECG WBC 6.5, hemoglobin 11.6, platelet count 167, potassium 4.8, BUN 27, creatinine 1.1 bedside telemetry reveals atrial fibrillation with rates in the 90s to low 100s Objective - Vital Signs Vital signs: Vital Signs Temp 98.5 F 06/03/19 12:00 Pulse 103 H 06/03/19 12:00 Resp 21 06/03/19 12:00 BP 139/104 06/03/19 12:00 Pulse Ox 96 06/03/19 12:00 Intake & Output 06/02/19 06/03/19 06/03/19 18:59 06:59 18:59 Intake Total 725 650 400 Output Total 1665 1265 390 Balance -940 -615 10 Weight 62.2 kg Intake: IV 725 650 400 Piperacillin-Tazobactam 3 225 100 100 .375 gm In Sodium Chloride 0.9% 100 ml @ 25 mls/hr IVPB Q8HR [facility] Rx# :[id number] Sodium Chloride 0.9% 1, 500 550 300 000 ml @ 50 mls/hr IV . Q20H [facility] Rx#:[id number] Output: Urine 1665 1265 390 Other: Voiding Method Indwelling Catheter Indwelling Catheter Indwelling Catheter # Bowel Movements 1 1 - Labs CBC & Chem 7: 06/03/19 04:40 06/03/19 04:40 Labs: Abnormal Lab Results - Last 24 Hours (Table) 06/02/19 06/02/19 06/03/19 Range/Units 17:04 20:23 04:40 MCHC 30.7 L (31.0-37.0) g/dL RDW 16.0 H (11.5-15.5) % Lymphocytes # 0.6 L (1.0-4.8) k/uL Sodium (137-145) mmol/L BUN (7-17) mg/dL Creatinine (0.52-1.04) mg/dL POC Glucose (mg/dL) 193 H 223 H (75-99) mg/dL Calcium (8.4-10.2) mg/dL 06/03/19 06/03/19 Range/Units 04:40 11:45 MCHC (31.0-37.0) g/dL RDW (11.5-15.5) % Lymphocytes # (1.0-4.8) k/uL Sodium 132 L (137-145) mmol/L BUN 27 H (7-17) mg/dL Creatinine 1.10 H (0.52-1.04) mg/dL POC Glucose (mg/dL) 107 H (75-99) mg/dL Calcium 7.9 L (8.4-10.2) mg/dL Microbiology - Last 24 Hours (Table) 05/31/19 18:22 Blood Culture - Preliminary Blood No Growth after 48 hours 05/31/19 19:03 Blood Culture - Preliminary Blood No Growth after 48 hours
[2019-06-03] MEDS: CALCIUM ACETATE 667 MG CAP PO SCH (14:49)
[2019-06-03] MEDS ORDERED: SUCCINYLCHOLINE CHLORIDE 100 MG/5 ML SYR IV ONE (15:42)
[2019-06-03] MEDS ORDERED: PROPOFOL 10 MG/ML 20 ML VIAL IV ONE (15:42)
[2019-06-03] MEDS ORDERED: .MORPHINE SULFATE (INJ) 10 MG/ML SYRINGE ONE (15:42)
[2019-06-03] MEDS ORDERED: GLYCOPYRROLATE 0.2 MG/ML 2 ML VIAL ONE (15:42)
[2019-06-03] MEDS ORDERED: FUROSEMIDE 10 MG/ML 2 ML VIAL ONE (15:42)
[2019-06-03] MEDS ORDERED: PHENYLEPHRINE-0.9% NACL SYG 1 MG/10 ML SYRINGE ONE (15:42)
[2019-06-03] MEDS ORDERED: MIDAZOLAM 2 MG/2 ML VIAL ONE (15:42)
[2019-06-03] MEDS ORDERED: ROCURONIUM BROMIDE 10 MG/ML 10 ML VIAL IV ONE (15:42)
[2019-06-03] MEDS ORDERED: LIDOCAINE 1% INJ 10MG/ML (20 ML MDV) ONE (15:42)
[2019-06-03] MEDS ORDERED: fentaNYL (PF) 50 MCG/ML 2 ML AMP ONE (15:42)
[2019-06-03] MEDS ORDERED: NEOSTIGMINE 1 MG/ML 10 ML VIAL ONE (15:42)
[2019-06-03 15:51] LABS: Glucose,Whole Blood 113 mg/dL (75-99)
[2019-06-03] MEDS ORDERED: LACTATED RINGERS 1,000 ML IV ONE ×3 (15:57→17:56)
[2019-06-03] MEDS: CALCIUM CARB-VIT D 500MG-200UN 1 EACH TAB PO SCH (17:20)
[2019-06-03] MEDS: MULTIVITAMINS, THERA 1 EACH TAB PO SCH (17:20)
--- NOTE | 2019-06-03 18:24 | P.OP ---
Date of Procedure: 06/03/19 Preoperative Diagnosis: Parastomal hernia Postoperative Diagnosis: Parastomal hernia Incisional hernia Adhesions Procedure(s) Performed: Exploratory laparotomy Lysis of adhesions Repair of parastomal hernia Partial colectomy Partial omentectomy Repair of incisional hernia Anesthesia: TG Surgeon: Cedric Quintanilla Estimated Blood Loss (ml): 50 Pathology: other (Colon, omentum) Condition: stable Disposition: PACU Description of Procedure: The patient's placed on the operating table in the supine position. She received general anesthesia. Her abdomen was prepped and draped usual sterile fashion. The abdomen was entered through midline incision. There was several incisional hernias located along the scar. Approximately 30 minutes of operative time used to lyse adhesions. There were extensive adhesions in the abdomen. The parastomal hernia was reduced. There was a large amount of small bowel within the hernia. At this point the colon was transected with the linear stapler. The fascial defect at the parastomal hernia was closed with 0 Ethibond suture. At this point the splenic flexure was taken down and then the mesentery the colon was divided with the incidental device. The colon was then transected with the GI stapler. At this point a suitable spot for the colostomy was chosen in the left upper quadrant. The: Clear. The fascia and then the skin was incised with a 15 blade and then using electrocautery the fascia was opened for the colostomy. The colon was then brought up through the colostomy site. At this point the omentum was examined. The omentum appeared to be nonviable several spots and the omentum was transected with the Enseal device. At this point the fascia was closed with #1 stranded fix suture. Marge's fascia was closed with 3-0 Vicryl. A LIOR drains placed through separate stab incision and placed on top of the fascia and then the skin was closed with lizy. The colostomy site was then excised by using electrocautery to divide the mucocutaneous junction and then the colostomy was dissected free from some taste tissues. The skin was closed lizy. Next the colostomy was matured with 3-0 Vicryl. Sterile dressings was applied. The colostomy plus applied. Patient tolerated the procedure well and sent to the recovery room stable condition.
[2019-06-03 18:32] LABS: Glucose,Whole Blood 102 mg/dL (75-99)
[2019-06-03] MEDS: LORATADINE 10 MG TAB PO SCH (19:05)
[2019-06-03] MEDS: ATORVASTATIN 10 MG TAB PO SCH (20:28)
[2019-06-03 20:29] LABS: Glucose,Whole Blood 127 mg/dL (75-99)
--- NOTE | 2019-06-03 21:12 | P.PN ---
Subjective Progress Note Date: 06/03/19 Principal diagnosis: Symptomatic bradycardia Patient is a 72-year-old female with known history of chronic atrial fibrillation on anticoagulation with Eliquis, CHF with systolic heart failure/nonischemic cardio myopathy, hypertension, hyperlipidemia, inflammatory bowel disease and hypothyroidism as well as diabetes type 2 was initially presented to [facility] with complaints of fever and also fingers turning blue. Patient had chest x-ray which showed left lower lobe pneumonia. Patient was also having lactic acidosis 2.2. Patient was given fluid bolus and started on IV antibiotics at this time. She was noted to have bradycardia and possible Mobitz type II heart block. Heart rate was in the 30s. Patient has chronic atrial fibrillation. Patient was eventually transferred to [facility] for further evaluation by cardiology. Denied any complaints of dizziness or lightheadedness while in bed. No fever no chills currently. Patient does have generalized weakness and tiredness otherwise. Patient does have chronic atrial fibrillation and was admitted to the hospital in March 2019 with rapid ventricular rate. Patient had difficulty controlling heart rate. She was initially on Cardizem drip and amiodarone drip. Patient was discharged home on amiodarone and metoprolol. Patient is also on anticoagulation with a liquids. Patient also completed 5 days of antibiotic therapy for left lower lobe pneumonia at that time. Patient was discharged to [facility] on 04/16/2019. Patient currently takes amiodarone, metoprolol. Due to significant bradycardia patient was placed on temporary pacemaker in the ER. Patient was also started on antibiotics in the form of Levaquin for possible left lower lobe pneumonia. Patient denied any complaints of abdominal pain. No nausea vomiting or diarrhea. Patient does have left abdominal wound for which she is following her surgeon. 06/01/2019 Patient is currently in the MICU. Awake alert and oriented 3. Heart rate improved to 60s now. Currently on transvenous pacemaker. Metoprolol and amiod arone on hold. Cardiology and pulmonary has seen the patient. CT of the abdominal pelvis was done to evaluate further ostomy functionality. Gen. surgery was consulted. Patient does have some stool output from the ostomy. Patient does have surrounding skin excoriation otherwise. No complains of chest pain or shortness of breath. No fever no chills. Patient is being continued on antibiotics for possible pneumonia. 06/02/2019 Patient is currently in the MICU. Currently denied any complaints of chest pain or worsening shortness of breath. Heart rate improved to 80s now. Patient is currently on transvenous pacemaker. Cardiology recommends to continue transvenous pacemaker and monitor for intrinsic conduction system recovery. Patient is having minimal stool output from the colostomy. General surgery is planning for colostomy repair and also repair of parastomal hernia. No fever no chills. No nausea no vomiting. No headache or dizziness or lightheadedness. Patient does complain of discomfort and the dominant. 06/03/2019 Patient is currently awake alert and oriented 3. Chronic atrial fibrillation and rate is controlled now. Patient is on transvenous pacemaker. General surgery is planning for ostomy revision and repair of paraostial hernia today. Patient has been afebrile. No complaints of chest pain or worsening shortness of breath. Chest x-ray showed cardiomegaly and bibasilar effusions. Current medications reviewed. Objective - Vital Signs Vital signs: Vital Signs Temp 98.3 F 06/03/19 15:30 Pulse 99 06/03/19 15:30 Resp 21 06/03/19 15:30 BP 146/99 06/03/19 15:30 Pulse Ox 97 06/03/19 15:30 Intake & Output 06/02/19 06/03/19 06/03/19 18:59 06:59 18:59 Intake Total 725 650 625 Output Total 1665 1265 610 Balance -940 -615 15 Weight 62.2 kg Intake: IV 725 650 625 Piperacillin-Tazobactam 3 225 100 125 .375 gm In Sodium Chloride 0.9% 100 ml @ 25 mls/hr IVPB Q8HR [facility] Rx# :[id number] Sodium Chloride 0.9% 1, 500 550 500 000 ml @ 50 mls/hr IV . Q20H [facility] Rx#:[id number] Output: Urine 1665 1265 610 Other: Voiding Method Indwelling Catheter Indwelling Catheter Indwelling Catheter # Bowel Movements 1 1 - Exam PHYSICAL EXAMINATION: Patient is lying in the bed comfortably, no acute distress, awake alert and oriented.. HEENT: Normocephalic. Neck is supple. Pupils reactive. Nostrils clear. Oral cavity is moist. Ears reveal no drainage. Neck reveals no JVD, carotid bruits, or thyromegaly. CHEST EXAMINATION: Trachea is central. Symmetrical expansion. Bibasilar crackles and diminished sounds. Otherwise Lung dior clear to auscultation and percussion. CARDIAC: Normal S1, S2 with no gallops. No murmurs ABDOMEN: Soft. Left-sided abdominal wall skin excoriation around the ostomy. Bowel sounds normal. No organomegaly. No abdominal bruits. Extremities: reveal no edema. No clubbing or cyanosis Neurologically awake, alert, oriented x3 with well-coordinated movements. No focal deficits noted Skin: No rash or skin lesions. Psychiatric: Coperative. Nonsuicidal Musculoskeletal: No joint swelling or deformity. Normal range of motion. - Labs CBC & Chem 7: 06/03/19 04:40 06/03/19 04:40 Labs: Abnormal Lab Results - Last 24 Hours (Table) 06/02/19 06/02/19 06/03/19 Range/Units 17:04 20:23 04:40 MCHC 30.7 L (31.0-37.0) g/dL RDW 16.0 H (11.5-15.5) % Lymphocytes # 0.6 L (1.0-4.8) k/uL Sodium (137-145) mmol/L BUN (7-17) mg/dL Creatinine (0.52-1.04) mg/dL POC Glucose (mg/dL) 193 H 223 H (75-99) mg/dL Calcium (8.4-10.2) mg/dL 06/03/19 06/03/19 06/03/19 Range/Units 04:40 11:45 15:49 MCHC (31.0-37.0) g/dL RDW (11.5-15.5) % Lymphocytes # (1.0-4.8) k/uL Sodium 132 L (137-145) mmol/L BUN 27 H (7-17) mg/dL Creatinine 1.10 H (0.52-1.04) mg/dL POC Glucose (mg/dL) 107 H 113 H (75-99) mg/dL Calcium 7.9 L (8.4-10.2) mg/dL Microbiology - Last 24 Hours (Table) 05/31/19 18:22 Blood Culture - Preliminary Blood No Growth after 48 hours 05/31/19 19:03 Blood Culture - Preliminary Blood No Growth after 48 hours Assessment and Plan Assessment: Symptomatic bradycardia/Mobitz type II heart block. Placed on transcutaneous pacemaker initially. Successfully placed transvenous pacemaker. Possible Left lower lobe pneumonia. Unlikely sepsis. chronic CHF with systolic dysfunction. On Lasix at home.. Chronic Persistent Atrial fibrillation. Patient was bradycardic on admission.. On anticoagulation with Eliquis. Metoprolol and amiodarone on hold Hypoglycemia likely due to insulin at home. Diabetes type 2 insulin-dependent Hypertension Hyperlipidemia Nonischemic cardiomyopathy Hypothyroidism History of colectomy and colostomy. Para stomal hernia. Inflammatory bowel disease. Plan: Patient will be continued on telemetry monitoring. Status post transvenous pacemaker placement. Metoprolol and amiodarone is on hold. Continue with antibiotics for left lower lobe pneumonia in the form of Levaquin. Anticoagulation is on hold due to surgery tomorrow. Gen. surgery is following.. Cardiology and pulmonary is on board. Continue to follow closely and insulin sliding scale. Further recommendations based on the clinical course. Prognosis is guarded. Time with Patient: Greater than 30
[2019-06-03] MEDS ORDERED: SODIUM CHLORIDE 0.9% 1,000 ML IV ONE (21:57)
[2019-06-04] MEDS: SODIUM CHLORIDE 0.9% 1,000 ML IV SCH (04:16)
[2019-06-04 06:02] LABS: Basophils % (A) 0 %; Eosinophils # (A) 0.1 k/uL (0-0.7); Eosinophils % (A) 1 %; HCT 38.6 % (34.0-46.0); HGB 12.3 gm/dL (11.4-16.0); Hypochromasia Moderate; Lymphocytes # (A) 0.6 k/uL (1.0-4.8); Lymphocytes % (A) 5 %; MCH 30.5 pg (25.0-35.0); MCHC 31.7 g/dL (31.0-37.0); MCV 96.2 fL (80.0-100.0); Mean Platelet Volume 5.9; Monocytes # (A) 0.4 k/uL (0-1.0); Monocytes % (A) 3 %; Neutrophils # (A) 9.6 k/uL (1.3-7.7); Neutrophils % (A) 89 %; Platelet Count 201 k/uL (150-450); RBC 4.01 m/uL (3.80-5.40); RDW 15.6 % (11.5-15.5); WBC 10.9 k/uL (3.8-10.6)
[2019-06-04 06:15] LABS: Calcium 7.6 mg/dL (8.4-10.2); Potassium 5.1 mmol/L (3.5-5.1)
[2019-06-04] MEDS ORDERED: SODIUM CHLORIDE 0.9% 1,000 ML IV ONE ×2 (06:19→14:43)
[2019-06-04] MEDS: LEVOTHYROXINE 25 MCG TAB PO SCH (06:21)
[2019-06-04 06:55] LABS: Glucose,Whole Blood 114 mg/dL (75-99)
[2019-06-04] MEDS: INSULIN ASPART (NovoLOG) 100 UNIT/ML VIAL SQ SCH ×4 (06:55→21:53)
[2019-06-04] MEDS: IPRATROPIUM-ALBUTEROL 3 ML NEB INHALATION SCH ×4 (07:07→19:46)
[2019-06-04] MEDS: PIPERACILLIN-TAZOBACTAM 3.375 GM in SODIUM CHLORIDE 0.9% 100 ML IVPB SCH ×2 (08:55→17:23)
[2019-06-04] MEDS: PANTOPRAZOLE 40 MG/10 ML VIAL IV SCH (08:56)
--- NOTE | 2019-06-04 09:20 | XR ---
EXAMINATION TYPE: XR chest 1V DATE OF EXAM: 06/04/2019 COMPARISON: 06/03/2019 HISTORY: Pneumonia follow-up TECHNIQUE: Single frontal view of the chest is obtained. FINDINGS: Bilateral consolidation and pleural effusion. Cardiac lead noted. Heart is enlarged. Ather osclerotic change aorta. Arthropathy of the shoulders. No pneumothorax. No overt failure. Degenerativ e change of the spine. IMPRESSION: 1. Stable cardiomegaly with bilateral consolidation and pleural effusion. Correlate for resolving CHF otherwise consider pneumonia.
[2019-06-04] MEDS: HYDROmorphone 1 MG/ML 1 ML SYRINGE IVP PRN ×2 (09:51→17:25)
[2019-06-04] MEDS: CALCIUM ACETATE 667 MG CAP PO SCH (10:54)
[2019-06-04] MEDS: MAGNESIUM OXIDE 400 MG TAB PO SCH ×2 (10:54→21:54)
[2019-06-04] MEDS: MULTIVITAMINS, THERA 1 EACH TAB PO SCH (10:54)
[2019-06-04] MEDS: LORATADINE 10 MG TAB PO SCH (10:54)
[2019-06-04] MEDS: CALCIUM CARB-VIT D 500MG-200UN 1 EACH TAB PO SCH (10:54)
[2019-06-04] MEDS: BALSALAZIDE DISODIUM 750 MG CAPSULE PO SCH ×2 (10:55→21:52)
[2019-06-04 11:34] LABS: Glucose,Whole Blood 118 mg/dL (75-99)
[2019-06-04 13:47] LABS: Calcium 7.5 mg/dL (8.4-10.2); Magnesium 1.7 mg/dL (1.6-2.3); Potassium 4.8 mmol/L (3.5-5.1)
--- NOTE | 2019-06-04 14:21 | P.PN ---
Subjective Progress Note Date: 06/04/19 CHIEF COMPLAINT: abnormal ostomy HISTORY OF PRESENT ILLNESS: Patient is status post exploratory laparotomy, lysis of lesions, repair of parastomal hernia, partial colectomy, partial omentectomy, and repair of incisional hernia. POD #1. Patient examined at the bedside with Dr. Quintanilla. Patient reports her abdominal pain is tolerable. Ostomy with small amount of liquid stool noted. PHYSICAL EXAM: VITAL SIGNS: Reviewed. GENERAL: Well-developed in no acute distress. HEENT: No sclera icterus. Extraocular movements grossly intact. Moist buccal mucosa. Head is atraumatic, normocephalic. ABDOMEN: Soft. Nontender. Ostomy to left upper quadrant with liquid stool noted. Midline dressing CDI. Dressing to left lower quadrant with sero sanguineous drainage. NEUROLOGIC: Alert and oriented. Cranial nerves II through XII grossly intact. ASSESSMENT: 1. Complications of colostomy site, s/p exploratory laparotomy, lysis of lesions, repair of parastomal hernia, partial colectomy, partial omentectomy, and repair of incisional hernia PLAN: 1. Begin full liquid diet 2. Change optifoam dressing to left lower quadrant as needed due to saturation 3. Continue to hold Eliquis today. Repeat hemoglobin in AM Nurse practitioner note has been reviewed by physician. Signing provider agrees with the documented findings, assessment, and plan of care. Objective - Vital Signs Vital signs: Vital Signs Temp 98.4 F 06/04/19 12:00 Pulse 101 H 06/04/19 13:00 Resp 12 06/04/19 13:00 BP 103/77 06/04/19 13:00 Pulse Ox 96 06/04/19 13:00 Intake & Output 06/03/19 06/04/19 06/04/19 18:59 06:59 18:59 Intake Total 1525 1750 1040 Output Total 960 322 87 Balance 565 1428 953 Weight 63 kg Intake: IV 1525 1750 800 Piperacillin-Tazobactam 3 125 100 100 .375 gm In Sodium Chloride 0.9% 100 ml @ 25 mls/hr IVPB Q8HR [facility] Rx# :[id number] Sodium Chloride 0.9% 1, 500 550 700 000 ml @ 100 mls/hr IV . Q10H [facility] Rx#:[id number] Sodium Chloride 0.9% 1, 1000 000 ml @ 999 mls/hr IV . Q1H1M [facility] Rx#:[id number] Oral 240 Output: Drainage 40 5 Right Upper Abdomen 40 5 Urine 910 232 82 Stool 50 Estimated Blood Loss 50 Other: Voiding Method Indwelling Catheter Indwelling Catheter Indwelling Catheter - Labs CBC & Chem 7: 06/04/19 05:32 06/04/19 13:02 Labs: Abnormal Lab Results - Last 24 Hours (Table) 06/03/19 06/03/19 06/03/19 Range/Units 15:49 18:30 20:27 WBC (3.8-10.6) k/uL RDW (11.5-15.5) % Neutrophils # (1.3-7.7) k/uL Lymphocytes # (1.0-4.8) k/uL Sodium (137-145) mmol/L Chloride (98-107) mmol/L Carbon Dioxide (22-30) mmol/L BUN (7-17) mg/dL Creatinine (0.52-1.04) mg/dL Glucose (74-99) mg/dL POC Glucose (mg/dL) 113 H 102 H 127 H (75-99) mg/dL Calcium (8.4-10.2) mg/dL 06/04/19 06/04/19 06/04/19 Range/Units 05:32 05:32 06:53 WBC 10.9 H (3.8-10.6) k/uL RDW 15.6 H (11.5-15.5) % Neutrophils # 9.6 H (1.3-7.7) k/uL Lymphocytes # 0.6 L (1.0-4.8) k/uL Sodium 136 L (137-145) mmol/L Chloride 109 H (98-107) mmol/L Carbon Dioxide 16 L (22-30) mmol/L BUN 32 H (7-17) mg/dL Creatinine 1.56 H (0.52-1.04) mg/dL Glucose 118 H (74-99) mg/dL POC Glucose (mg/dL) 114 H (75-99) mg/dL Calcium 7.6 L (8.4-10.2) mg/dL 06/04/19 06/04/19 Range/Units 11:32 13:02 WBC (3.8-10.6) k/uL RDW (11.5-15.5) % Neutrophils # (1.3-7.7) k/uL Lymphocytes # (1.0-4.8) k/uL Sodium (137-145) mmol/L Chloride 110 H (98-107) mmol/L Carbon Dioxide 14 L (22-30) mmol/L BUN 35 H (7-17) mg/dL Creatinine 1.87 H (0.52-1.04) mg/dL Glucose 130 H (74-99) mg/dL POC Glucose (mg/dL) 118 H (75-99) mg/dL Calcium 7.5 L (8.4-10.2) mg/dL Microbiology - Last 24 Hours (Table) 05/31/19 18:22 Blood Culture - Preliminary Blood No Growth after 72 hours 05/31/19 19:03 Blood Culture - Preliminary Blood No Growth after 72 hours
[2019-06-04] MEDS: DEXTROSE 5% IN WATER 1,000 ML with SODIUM BICARB (1 MEQ/ML) 150 ML IV SCH (15:24)
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
[2019-06-04] MEDS ORDERED: METOCLOPRAMIDE 5 MG/ML 2 ML VIAL IVP PRN (16:25)
--- NOTE | 2019-06-04 17:23 | P.PN ---
Subjective This is Radha Ruiz PA-C dictating a progress note on this patient The patient was interviewed and examined by me as well as by Dr. Min Case discussed with Dr. Min and he agrees with the plan of care IMPRESSION / ASSESSMENT: symptomatic bradycardia secondary to high dose amiodarone and metoprolol, status post temporary transvenous pacemaker, patient is currently in atrial fibrillation Persistent atrial fibrillation, rates in the 100s nonischemic cardiomyopathy, previous echo showing EF 20% Hypertension, blood pressure stable Dyslipidemia diabetes History of bowel resection and colostomy, post op day #1 s/p exploratory lap aroscopy, lysis of lesions, repair of parasternal hernia, partial colectomy, partial omentectomy, and repair of incisional hernia Dementia PLAN: Start low-dose metoprolol 12.5 mg 2 times a day for rate control Discontinue clonidine patch Will likely DC the transvenous pacemaker tomorrow restart eliquis when okay with surgery medical management for cardiomyopathy only HPI/interval history Patient is a 73-year-old female with past medical history significant for persistent atrial fibrillation, type 2 diabetes, hypertension, dyslipidemia, nonischemic cardiomyopathy, colostomy, and dementia who presented with AMS and was admitted for treatment of sepsis. She was found to have significant sinus bradycardia and underwent a temporary transvenous pacemaker placement. She later went back into atrial fibrillation. Her rates have been the 90s-100s. She is still off metoprolol. Yesterday she underwent an exploratory laparotomy, repair of peristomal hernia partial colectomy and repair of incisional hernia. Patient seen and examined resting comfortably in bed. states she is nervous about her surgery. Denies any chest pain, palpitation or shortness of breath. EXAMINATION Patient is afebrile, pulse 94, respirations 20, blood pressure 101/70, oxygen saturation 96% Patient seen and examined resting comfortably in bed, in no acute distress breath sounds slightly diminished but clear heart is irregular and slightly tachycardic no elevated JVD No lower extremity edema REVIEW OF LABS, ECG WBC 10.9, hemoglobin 12.3, platelets 201, potassium 4., BUN 35, creatinine 1.87 Objective - Vital Signs Vital signs: Vital Signs Temp 98.4 F 06/04/19 12:00 Pulse 85 06/04/19 15:00 Resp 23 06/04/19 15:00 BP 116/70 06/04/19 15:00 Pulse Ox 95 06/04/19 15:00 Intake & Output 06/03/19 06/04/19 06/04/19 18:59 06:59 18:59 Intake Total 1525 1750 2240 Output Total 960 322 87 Balance 565 1428 2153 Weight 63 kg Intake: IV 1525 1750 2000 Piperacillin-Tazobactam 3 125 100 100 .375 gm In Sodium Chloride 0.9% 100 ml @ 25 mls/hr IVPB Q8HR [facility] Rx# :[id number] Sodium Chloride 0.9% 1, 500 550 900 000 ml @ 100 mls/hr IV . Q10H [facility] Rx#:[id number] Sodium Chloride 0.9% 1, 1000 000 ml @ 999 mls/hr IV . Q1H1M [facility] Rx#:[id number] Sodium Chloride 0.9% 1, 1000 000 ml @ 999 mls/hr IV . Q1H1M [facility] Rx#:[id number] Oral 240 Output: Drainage 40 5 Right Upper Abdomen 40 5 Urine 910 232 82 Stool 50 Estimated Blood Loss 50 Other: Voiding Method Indwelling Catheter Indwelling Catheter Indwelling Catheter - Labs CBC & Chem 7: 06/04/19 05:32 06/04/19 13:02 Labs: Abnormal Lab Results - Last 24 Hours (Table) 06/03/19 06/03/19 06/03/19 Range/Units 15:49 18:30 20:27 WBC (3.8-10.6) k/uL RDW (11.5-15.5) % Neutrophils # (1.3-7.7) k/uL Lymphocytes # (1.0-4.8) k/uL Sodium (137-145) mmol/L Chloride (98-107) mmol/L Carbon Dioxide (22-30) mmol/L BUN (7-17) mg/dL Creatinine (0.52-1.04) mg/dL Glucose (74-99) mg/dL POC Glucose (mg/dL) 113 H 102 H 127 H (75-99) mg/dL Calcium (8.4-10.2) mg/dL 06/04/19 06/04/19 06/04/19 Range/Units 05:32 05:32 06:53 WBC 10.9 H (3.8-10.6) k/uL RDW 15.6 H (11.5-15.5) % Neutrophils # 9.6 H (1.3-7.7) k/uL Lymphocytes # 0.6 L (1.0-4.8) k/uL Sodium 136 L (137-145) mmol/L Chloride 109 H (98-107) mmol/L Carbon Dioxide 16 L (22-30) mmol/L BUN 32 H (7-17) mg/dL Creatinine 1.56 H (0.52-1.04) mg/dL Glucose 118 H (74-99) mg/dL POC Glucose (mg/dL) 114 H (75-99) mg/dL Calcium 7.6 L (8.4-10.2) mg/dL 06/04/19 06/04/19 Range/Units 11:32 13:02 WBC (3.8-10.6) k/uL RDW (11.5-15.5) % Neutrophils # (1.3-7.7) k/uL Lymphocytes # (1.0-4.8) k/uL Sodium (137-145) mmol/L Chloride 110 H (98-107) mmol/L Carbon Dioxide 14 L (22-30) mmol/L BUN 35 H (7-17) mg/dL Creatinine 1.87 H (0.52-1.04) mg/dL Glucose 130 H (74-99) mg/dL POC Glucose (mg/dL) 118 H (75-99) mg/dL Calcium 7.5 L (8.4-10.2) mg/dL Microbiology - Last 24 Hours (Table) 05/31/19 18:22 Blood Culture - Preliminary Blood No Growth after 72 hours 05/31/19 19:03 Blood Culture - Preliminary Blood No Growth after 72 hours
[2019-06-04] MEDS: ONDANSETRON 4 MG/2 ML VIAL IVP PRN (17:24)
[2019-06-04 18:34] LABS: Glucose,Whole Blood 265 mg/dL (75-99)
[2019-06-04] MEDS ORDERED: FUROSEMIDE 10 MG/ML 10 ML VIAL IV STA (18:51)
[2019-06-04 21:36] LABS: Glucose,Whole Blood 243 mg/dL (75-99)
--- NOTE | 2019-06-04 21:47 | P.PN ---
Subjective Progress Note Date: 06/04/19 Principal diagnosis: Symptomatic bradycardia Patient is a 72-year-old female with known history of chronic atrial fibrillation on anticoagulation with Eliquis, CHF with systolic heart failure/nonischemic cardio myopathy, hypertension, hyperlipidemia, inflammatory bowel disease and hypothyroidism as well as diabetes type 2 was initially presented to [facility] with complaints of fever and also fingers turning blue. Patient had chest x-ray which showed left lower lobe pneumonia. Patient was also having lactic acidosis 2.2. Patient was given fluid bolus and started on IV antibiotics at this time. She was noted to have bradycardia and possible Mobitz type II heart block. Heart rate was in the 30s. Patient has chronic atrial fibrillation. Patient was eventually transferred to [facility] for further evaluation by cardiology. Denied any complaints of dizziness or lightheadedness while in bed. No fever no chills currently. Patient does have generalized weakness and tiredness otherwise. Patient does have chronic atrial fibrillation and was admitted to the hospital in March 2019 with rapid ventricular rate. Patient had difficulty controlling heart rate. She was initially on Cardizem drip and amiodarone drip. Patient was discharged home on amiodarone and metoprolol. Patient is also on anticoagulation with a liquids. Patient also completed 5 days of antibiotic therapy for left lower lobe pneumonia at that time. Patient was discharged to [facility] on 04/16/2019. Patient currently takes amiodarone, metoprolol. Due to significant bradycardia patient was placed on temporary pacemaker in the ER. Patient was also started on antibiotics in the form of Levaquin for possible left lower lobe pneumonia. Patient denied any complaints of abdominal pain. No nausea vomiting or diarrhea. Patient does have left abdominal wound for which she is following her surgeon. 06/01/2019 Patient is currently in the MICU. Awake alert and oriented 3. Heart rate improved to 60s now. Currently on transvenous pacemaker. Metoprolol and amiod arone on hold. Cardiology and pulmonary has seen the patient. CT of the abdominal pelvis was done to evaluate further ostomy functionality. Gen. surgery was consulted. Patient does have some stool output from the ostomy. Patient does have surrounding skin excoriation otherwise. No complains of chest pain or shortness of breath. No fever no chills. Patient is being continued on antibiotics for possible pneumonia. 06/02/2019 Patient is currently in the MICU. Currently denied any complaints of chest pain or worsening shortness of breath. Heart rate improved to 80s now. Patient is currently on transvenous pacemaker. Cardiology recommends to continue transvenous pacemaker and monitor for intrinsic conduction system recovery. Patient is having minimal stool output from the colostomy. General surgery is planning for colostomy repair and also repair of parastomal hernia. No fever no chills. No nausea no vomiting. No headache or dizziness or lightheadedness. Patient does complain of discomfort and the dominant. 06/03/2019 Patient is currently awake alert and oriented 3. Chronic atrial fibrillation and rate is controlled now. Patient is on transvenous pacemaker. General surgery is planning for ostomy revision and repair of paraostial hernia today. Patient has been afebrile. No complaints of chest pain or worsening shortness of breath. Chest x-ray showed cardiomegaly and bibasilar effusions. 06/04/2019 Patient is a 71-year-old female with a known history of chronic atrial fibrillation on metoprolol and amiodarone, was initially admitted to the hospital due to bradycardia. Patient is status post transvenous pacemaker placement. Currently maintaining heart rate. Patient was started back on low- dose beta blockers today. Cardiology is following. Patient remained in atrial fibrillation. Patient underwent exploratory laparotomy with lysis of adhesions, repair of parastomal hernia, partial colectomy and omentectomy and repair of an incisional hernia. Postoperative day 1. Patient is currently awake alert oriented 3. Tolerating oral diet. Creatinine level went up to 1.87 today from 1.56. And bicarb level is 14. Patient does have decreased urine output and IV fluid bolus 2 and it was given. Chest x-ray showed small bilateral effusions. Currently on. 2 oxygen with another cannula. Pulmonary, cardiology and general surgery is following. Current medications reviewed. Active Medications Albuterol/Ipratropium (Duoneb 0.5 Mg-3 Mg/3 Ml Soln) 3 ml INHALATION RT-QID [facility] Last Admin: 06/04/19 19:46 Dose: 3 ml Documented by: Albuterol/Ipratropium (Duoneb 0.5 Mg-3 Mg/3 Ml Soln) 3 ml INHALATION Q4H PRN PRN Reason: Shortness Of Breath Or Wheezing Atorvastatin Calcium (Lipitor) 10 mg PO HS [facility] Last Admin: 06/03/19 20:28 Dose: Not Given Documented by: Balsalazide (Colazal) 1,500 mg PO BID [facility] Last Admin: 06/04/19 10:55 Dose: 1,500 mg Documented by: Calcium Acetate (Phoslo) 667 mg PO DAILY [facility] Last Admin: 06/04/19 10:54 Dose: 667 mg Documented by: Calcium Carbonate (Oscal 500+D) 1 each PO DAILY [facility] Last Admin: 06/04/19 10:54 Dose: 1 each Documented by: Hydromorphone HCl (Dilaudid) 1 mg IVP Q4HR PRN PRN Reason: Pain Last Admin: 06/04/19 17:25 Dose: 1 mg Documented by: Piperacillin Sod/Tazobactam (Sod 3.375 gm/ Sodium Chloride) 100 mls @ 25 mls/hr IVPB Q8HR [facility] Stop: 06/11/19 00:01 Last Admin: 06/04/19 17:23 Dose: 25 mls/hr Documented by: Sodium Bicarbonate 150 ml/ (Dextrose/Water) 1,150 mls @ 100 mls/hr IV .[id number] [facility] Last Admin: 06/04/19 15:24 Dose: 100 mls/hr Documented by: Insulin Aspart (Novolog) 0 unit SQ ACHS [facility]; Protocol Last Admin: 06/04/19 18:35 Dose: 4 unit Documented by: Levothyroxine Sodium (Synthroid) 25 mcg PO 0630 [facility] Last Admin: 06/04/19 06:21 Dose: Not Given Documented by: Loratadine (Claritin) 10 mg PO DAILY [facility] Last Admin: 06/04/19 10:54 Dose: 10 mg Documented by: Magnesium Oxide (Mag-Ox) 400 mg PO BID [facility] Last Admin: 06/04/19 10:54 Dose: 400 mg Documented by: Metoclopramide HCl (Reglan) 10 mg IVP Q6HR PRN PRN Reason: Nausea Metoprolol Tartrate (Lopressor) 12.5 mg PO BID [facility] Miscellaneous Information (Pneumonia Protocol Utilized) 1 each PO ONCE PRN PRN Reason: Per Protocol Multivitamins (Theragran) 1 each PO DAILY [facility] Last Admin: 06/04/19 10:54 Dose: 1 each Documented by: Ondansetron HCl (Zofran) 4 mg IVP Q6HR PRN PRN Reason: Nausea And Vomiting Last Admin: 06/04/19 17:24 Dose: 4 mg Documented by: Pantoprazole Sodium (Protonix) 40 mg IV DAILY [facility] Last Admin: 06/04/19 08:56 Dose: 40 mg Documented by: Objective - Vital Signs Vital signs: Vital Signs Temp 98.4 F 06/04/19 20:00 Pulse 86 06/04/19 21:00 Resp 19 06/04/19 21:00 BP 119/62 06/04/19 21:00 Pulse Ox 97 06/04/19 21:00 Intake & Output 06/04/19 06/04/19 06/05/19 06:59 18:59 06:59 Intake Total 1750 2640 300 Output Total 322 142 50 Balance 1428 2498 250 Weight 63 kg Intake: IV 1750 2400 300 Dextrose 5% in Water 1, 300 300 000 ml @ 100 mls/hr IV . [id number] [facility] with Sodium Bicarb (1 Meq/ml) 150 ml Rx#:[id number] Piperacillin-Tazobactam 3 100 200 .375 gm In Sodium Chloride 0.9% 100 ml @ 25 mls/hr IVPB Q8HR [facility] Rx# :[id number] Sodium Chloride 0.9% 1, 550 900 000 ml @ 100 mls/hr IV . Q10H [facility] Rx#:[id number] Sodium Chloride 0.9% 1, 1000 000 ml @ 999 mls/hr IV . Q1H1M ONE Rx#:[id number] Sodium Chloride 0.9% 1, 1000 000 ml @ 999 mls/hr IV . Q1H1M ONE Rx#:[id number] Oral 240 Output: Drainage 40 25 Right Upper Abdomen 40 25 Urine 232 117 50 Stool 50 Other: Voiding Method Indwelling Catheter Indwelling Catheter - Exam PHYSICAL EXAMINATION: Patient is lying in the bed comfortably, no acute distress, awake alert and oriented.. HEENT: Normocephalic. Neck is supple. Pupils reactive. Nostrils clear. Oral cavity is moist. Ears reveal no drainage. Neck reveals no JVD, carotid bruits, or thyromegaly. CHEST EXAMINATION: Trachea is central. Symmetrical expansion. Bibasilar crackles and diminished sounds. Otherwise Lung dior clear to auscultation and percussion. CARDIAC: Normal S1, S2 with no gallops. No murmurs ABDOMEN: Soft. Left-sided abdominal wall skin excoriation around the ostomy. Ostomy bag in place. Bowel sounds normal. No organomegaly. No abdominal bruits. Extremities: reveal no edema. No clubbing or cyanosis Neurologically awake, alert, oriented x3 with well-coordinated movements. No focal deficits noted Skin: No rash or skin lesions. Psychiatric: Coperative. Nonsuicidal Musculoskeletal: No joint swelling or deformity. Normal range of motion. - Labs CBC & Chem 7: 06/04/19 05:32 06/04/19 13:02 Labs: Abnormal Lab Results - Last 24 Hours (Table) 06/04/19 06/04/19 06/04/19 Range/Units 05:32 05:32 06:53 WBC 10.9 H (3.8-10.6) k/uL RDW 15.6 H (11.5-15.5) % Neutrophils # 9.6 H (1.3-7.7) k/uL Lymphocytes # 0.6 L (1.0-4.8) k/uL Sodium 136 L (137-145) mmol/L Chloride 109 H (98-107) mmol/L Carbon Dioxide 16 L (22-30) mmol/L BUN 32 H (7-17) mg/dL Creatinine 1.56 H (0.52-1.04) mg/dL Glucose 118 H (74-99) mg/dL POC Glucose (mg/dL) 114 H (75-99) mg/dL Calcium 7.6 L (8.4-10.2) mg/dL 06/04/19 06/04/19 06/04/19 Range/Units 11:32 13:02 18:33 WBC (3.8-10.6) k/uL RDW (11.5-15.5) % Neutrophils # (1.3-7.7) k/uL Lymphocytes # (1.0-4.8) k/uL Sodium (137-145) mmol/L Chloride 110 H (98-107) mmol/L Carbon Dioxide 14 L (22-30) mmol/L BUN 35 H (7-17) mg/dL Creatinine 1.87 H (0.52-1.04) mg/dL Glucose 130 H (74-99) mg/dL POC Glucose (mg/dL) 118 H 265 H (75-99) mg/dL Calcium 7.5 L (8.4-10.2) mg/dL Microbiology - Last 24 Hours (Table) 05/31/19 19:03 Blood Culture - Preliminary Blood No Growth after 96 hours 05/31/19 18:22 Blood Culture - Preliminary Blood No Growth after 96 hours Assessment and Plan Assessment: Symptomatic bradycardia/Mobitz type II heart block. Placed on transcutaneous pacemaker initially. Successfully placed transvenous pacemaker. Heart rate improved now. Possible Left lower lobe pneumonia. Unlikely sepsis. chronic CHF with systolic dysfunction. On Lasix at home.. Chronic Persistent Atrial fibrillation. Patient was bradycardic on admission.. On anticoagulation with Eliquis. Metoprolol and amiodarone on hold Hypoglycemia likely due to insulin at home. Diabetes type 2 insulin-dependent Hypertension Hyperlipidemia Nonischemic cardiomyopathy Hypothyroidism History of colectomy and colostomy. Para stomal hernia. Status post exploratory laparotomy and repair. And colostomy revision. Inflammatory bowel disease. Plan: Patient will be continued on telemetry monitoring. Status post transvenous pacemaker placement. Metoprolol and amiodarone is on hold. Metoprolol restarted at lower dose. Cardiology is following. Continue with antibiotics for left lower lobe pneumonia in the form of Zosyn. Anticoagulation is on hold due to surgery tomorrow. Can be restarted once cleared by surgery. Gen. surgery is following.. Continue to follow closely and insulin sliding scale. Further recommendations based on the clinical course. Prognosis is guarded. Time with Patient: Greater than 30
[2019-06-04] MEDS: METOPROLOL TARTRATE 12.5 MG TAB PO SCH (21:53)
[2019-06-04] MEDS: ATORVASTATIN 10 MG TAB PO SCH (21:53)
[2019-06-05] MEDS: PIPERACILLIN-TAZOBACTAM 3.375 GM in SODIUM CHLORIDE 0.9% 100 ML IVPB SCH ×3 (00:11→20:24)
[2019-06-05] MEDS: HYDROmorphone 1 MG/ML 1 ML SYRINGE IVP PRN ×2 (01:46→07:13)
[2019-06-05] MEDS: DEXTROSE 5% IN WATER 1,000 ML with SODIUM BICARB (1 MEQ/ML) 150 ML IV SCH (03:15)
[2019-06-05 06:39] LABS: Anisocytosis Slight; HCT 28.2 % (34.0-46.0); MCH 30.5 pg (25.0-35.0); MCHC 32.7 g/dL (31.0-37.0); MCV 93.1 fL (80.0-100.0); Mean Platelet Volume 6.1; Platelet Count 166 k/uL (150-450); RBC 3.03 m/uL (3.80-5.40); RDW 16.1 % (11.5-15.5); WBC 7.7 k/uL (3.8-10.6)
[2019-06-05 06:41] LABS: HGB 9.2 gm/dL (11.4-16.0)
[2019-06-05 06:45] LABS: Calcium 7.3 mg/dL (8.4-10.2); Magnesium 1.9 mg/dL (1.6-2.3); Potassium 3.9 mmol/L (3.5-5.1)
[2019-06-05] MEDS: LEVOTHYROXINE 25 MCG TAB PO SCH (06:56)
[2019-06-05 07:09] LABS: Glucose,Whole Blood 192 mg/dL (75-99)
[2019-06-05] MEDS: INSULIN ASPART (NovoLOG) 100 UNIT/ML VIAL SQ SCH ×4 (07:14→20:20)
[2019-06-05] MEDS: IPRATROPIUM-ALBUTEROL 3 ML NEB INHALATION SCH ×4 (07:52→19:06)
[2019-06-05] MEDS: ONDANSETRON 4 MG/2 ML VIAL IVP PRN (08:42)
[2019-06-05] MEDS: PANTOPRAZOLE 40 MG/10 ML VIAL IV SCH (08:46)
[2019-06-05] MEDS: MULTIVITAMINS, THERA 1 EACH TAB PO SCH (08:47)
[2019-06-05] MEDS: MAGNESIUM OXIDE 400 MG TAB PO SCH ×2 (08:47→20:24)
[2019-06-05] MEDS: CALCIUM ACETATE 667 MG CAP PO SCH (08:47)
[2019-06-05] MEDS: LORATADINE 10 MG TAB PO SCH (08:47)
[2019-06-05] MEDS: CALCIUM CARB-VIT D 500MG-200UN 1 EACH TAB PO SCH (08:47)
[2019-06-05] MEDS: METOPROLOL TARTRATE 12.5 MG TAB PO SCH ×2 (08:47→20:24)
[2019-06-05] MEDS: BALSALAZIDE DISODIUM 750 MG CAPSULE PO SCH ×2 (08:48→20:25)
--- NOTE | 2019-06-05 12:00 | P.PN ---
Progress Note - Text Progress Note Date: 06/05/19 The patient is resting comfortably in her bed. She's had no further vomiting. She's had limited output through her colostomy. On exam her vital signs are stable. Her abdomen is soft. Incision site is clean dry tach. Status post revision of colostomy with repair of parastomal hernia and inc isional hernia. Patient had extensive lysis of adhesions. She has a postoperative ileus. This is expected. We will advance her diet once she has return of bowel function.
[2019-06-05 12:09] LABS: Glucose,Whole Blood 294 mg/dL (75-99)
[2019-06-05] MEDS: SODIUM CHLORIDE 0.9% 1,000 ML IV SCH ×2 (12:13→20:23)
--- NOTE | 2019-06-05 14:43 | P.PN ---
Subjective This is Radha Ruiz PA-C dictating a progress note on this patient The patient was interviewed and examined by me as well as by Dr. Min Case discussed with Dr. Min and he agrees with the plan of care IMPRESSION / ASSESSMENT: symptomatic bradycardia secondary to high dose amiodarone and metoprolol, transvenous pacemaker removed today, patient remains in A. fib with rates in the 90s Persistent atrial fibrillation, rates in the 90s nonischemic cardiomyopathy, previous echo showing EF 20% Hypertension, blood pressure stable Dyslipidemia diabetes History of bowel resection and colostomy, post op day #2 s/p exploratory laparoscopy, lysis of lesions, repair of parasternal hernia, partial colectomy, partial omentectomy, and repair of incisional hernia Dementia PLAN: Continue low-dose metoprolol for rate control restart eliquis when okay with surgery medical management for cardiomyopathy only HPI/interval history Patient is a 73-year-old female with past medical history significant for persistent atrial fibrillation, type 2 diabetes, hypertension, dyslipidemia, nonischemic cardiomyopathy, colostomy, and dementia who presented with AMS and was admitted for treatment of sepsis. She was found to have significant sinus bradycardia and underwent a temporary transvenous pacemaker placement. She later went back into atrial fibrillation. Yesterday we started her on a low- dose of metoprolol and her rates have been in the 90s. Patient seen and examined resting comfortably in bed. Transvenous pacemaker removed at the bedside. Patient is complaining of some nausea. No chest pain or shortness of breath. EXAMINATION Temperature 98.6F, pulse 70, respirations 14, blood pressure 111/63, oxygen saturation 96% on room air Patient seen and examined resting comfortably in bed, in no acute distress Lungs are clear to auscultation bilaterally heart is irregular no elevated JVD No lower extremity edema REVIEW OF LABS, ECG WBC 7.7, hemoglobin 9.2, platelet 166, potassium 3.9, BUN 47, creatinine 2.11 Objective - Vital Signs Vital signs: Vital Signs Temp 98.6 F 06/05/19 12:00 Pulse 92 06/05/19 13:00 Resp 14 06/05/19 13:00 BP 122/76 06/05/19 13:00 Pulse Ox 75 L 06/05/19 13:00 Intake & Output 06/04/19 06/05/19 06/05/19 18:59 06:59 18:59 Intake Total 2640 1300 900 Output Total 142 440 400 Balance 2498 860 500 Weight 62.2 kg 62.2 kg Intake: IV 2400 1300 800 Dextrose 5% in Water 1, 300 1200 500 000 ml @ 100 mls/hr IV . [id number] [facility] with Sodium Bicarb (1 Meq/ml) 150 ml Rx#:[id number] Piperacillin-Tazobactam 3 200 100 100 .375 gm In Sodium Chloride 0.9% 100 ml @ 25 mls/hr IVPB Q8HR [facility] Rx# :[id number] Sodium Chloride 0.9% 1, 900 000 ml @ 100 mls/hr IV . Q10H [facility] Rx#:[id number] Sodium Chloride 0.9% 1, 200 000 ml @ 100 mls/hr IV . Q10H [facility] Rx#:[id number] Sodium Chloride 0.9% 1, 1000 000 ml @ 999 mls/hr IV . Q1H1M ONE Rx#:[id number] Oral 240 100 Output: Drainage 25 Right Upper Abdomen 25 Urine 117 440 250 Stool 150 Other: Voiding Method Indwelling Catheter Indwelling Catheter Indwelling Catheter - Labs CBC & Chem 7: 06/05/19 06:19 06/05/19 06:19 Labs: Abnormal Lab Results - Last 24 Hours (Table) 06/04/19 06/04/19 06/05/19 Range/Units 18:33 21:35 06:19 RBC 3.03 L (3.80-5.40) m/uL Hgb 9.2 L D (11.4-16.0) gm/dL Hct 28.2 L (34.0-46.0) % RDW 16.1 H (11.5-15.5) % Sodium (137-145) mmol/L BUN (7-17) mg/dL Creatinine (0.52-1.04) mg/dL Glucose (74-99) mg/dL POC Glucose (mg/dL) 265 H 243 H (75-99) mg/dL Calcium (8.4-10.2) mg/dL 06/05/19 06/05/19 06/05/19 Range/Units 06:19 07:08 12:07 RBC (3.80-5.40) m/uL Hgb (11.4-16.0) gm/dL Hct (34.0-46.0) % RDW (11.5-15.5) % Sodium 135 L (137-145) mmol/L BUN 47 H (7-17) mg/dL Creatinine 2.11 H (0.52-1.04) mg/dL Glucose 185 H (74-99) mg/dL POC Glucose (mg/dL) 192 H 294 H (75-99) mg/dL Calcium 7.3 L (8.4-10.2) mg/dL Microbiology - Last 24 Hours (Table) 05/31/19 19:03 Blood Culture - Preliminary Blood No Growth after 96 hours 05/31/19 18:22 Blood Culture - Preliminary Blood No Growth after 96 hours
--- NOTE | 2019-06-05 15:37 | P.PN ---
Subjective Progress Note Date: 06/05/19 71-year-old female with a known history of chronic atrial fibrillation on metoprolol and amiodarone, was initially admitted to the hospital due to bradycardia. Patient is status post transvenous pacemaker placement. Currently maintaining heart rate. Patient was started back on low-dose beta blockers 06/05/2019 Patient is seen and evaluated in ICU; patient is awake and alert but somewhat confused Vital signs remained stable with pulse of 92, respiration 18 and blood pressure 106/72 with SpO2 of 99% on 2 L Labs show a white blood count of 7.7, hemoglobin of 9.2 which is an acute drop from 12.3 yesterday and platelet count of 166; sodium 135 with potassium of 3.9; B UN/creatinine of 47/2.11 trending From 35/1.87 yesterday; blood sugars remain elevated between 192 - 294 Patient with symptomatic bradycardia secondary to high dose amiodarone and metoprolol; remains in atrial fibrillation with heart rate in 90s; echocardiogram showing ejection fraction of 20%; transvenous pacemaker has been removed; cardiology is following and recommending to continue with low-dose me toprolol for rate control and restart Eliquis when okayed by surgery Objective - Vital Signs Vital signs: Vital Signs Temp 98.6 F 06/05/19 12:00 Pulse 92 06/05/19 13:00 Resp 14 06/05/19 13:00 BP 122/76 06/05/19 13:00 Pulse Ox 75 L 06/05/19 13:00 Intake & Output 06/04/19 06/05/19 06/05/19 18:59 06:59 18:59 Intake Total 2640 1300 900 Output Total 142 440 400 Balance 2498 860 500 Weight 62.2 kg 62.2 kg Intake: IV 2400 1300 800 Dextrose 5% in Water 1, 300 1200 500 000 ml @ 100 mls/hr IV . [id number] [facility] with Sodium Bicarb (1 Meq/ml) 150 ml Rx#:[id number] Piperacillin-Tazobactam 3 200 100 100 .375 gm In Sodium Chloride 0.9% 100 ml @ 25 mls/hr IVPB Q8HR [facility] Rx# :[id number] Sodium Chloride 0.9% 1, 900 000 ml @ 100 mls/hr IV . Q10H [facility] Rx#:[id number] Sodium Chloride 0.9% 1, 200 000 ml @ 100 mls/hr IV . Q10H [facility] Rx#:[id number] Sodium Chloride 0.9% 1, 1000 000 ml @ 999 mls/hr IV . Q1H1M ONE Rx#:[id number] Oral 240 100 Output: Drainage 25 Right Upper Abdomen 25 Urine 117 440 250 Stool 150 Other: Voiding Method Indwelling Catheter Indwelling Catheter Indwelling Catheter - Exam HEENT: Normocephalic. Neck is supple. Pupils reactive. Nostrils clear. Oral cavity is moist. Ears reveal no drainage. Neck reveals no JVD, carotid bruits, or thyromegaly. CHEST EXAMINATION: Trachea is central. Symmetrical expansion. Bibasilar crackles and diminished sounds. Otherwise Lung dior clear to auscultation and percussion. CARDIAC: Normal S1, S2 with no gallops. No murmurs ABDOMEN: Soft. Left-sided abdominal wall skin excoriation around the ostomy. Ostomy bag in place. Bowel sounds normal. No organomegaly. No abdominal bruits. Extremities: reveal no edema. No clubbing or cyanosis - Labs CBC & Chem 7: 06/05/19 06:19 06/05/19 06:19 Labs: Abnormal Lab Results - Last 24 Hours (Table) 06/04/19 06/04/19 06/04/19 Range/Units 13:02 18:33 21:35 RBC (3.80-5.40) m/uL Hgb (11.4-16.0) gm/dL Hct (34.0-46.0) % RDW (11.5-15.5) % Sodium (137-145) mmol/L Chloride 110 H (98-107) mmol/L Carbon Dioxide 14 L (22-30) mmol/L BUN 35 H (7-17) mg/dL Creatinine 1.87 H (0.52-1.04) mg/dL Glucose 130 H (74-99) mg/dL POC Glucose (mg/dL) 265 H 243 H (75-99) mg/dL Calcium 7.5 L (8.4-10.2) mg/dL 06/05/19 06/05/19 06/05/19 Range/Units 06:19 06:19 07:08 RBC 3.03 L (3.80-5.40) m/uL Hgb 9.2 L D (11.4-16.0) gm/dL Hct 28.2 L (34.0-46.0) % RDW 16.1 H (11.5-15.5) % Sodium 135 L (137-145) mmol/L Chloride (98-107) mmol/L Carbon Dioxide (22-30) mmol/L BUN 47 H (7-17) mg/dL Creatinine 2.11 H (0.52-1.04) mg/dL Glucose 185 H (74-99) mg/dL POC Glucose (mg/dL) 192 H (75-99) mg/dL Calcium 7.3 L (8.4-10.2) mg/dL 06/05/19 Range/Units 12:07 RBC (3.80-5.40) m/uL Hgb (11.4-16.0) gm/dL Hct (34.0-46.0) % RDW (11.5-15.5) % Sodium (137-145) mmol/L Chloride (98-107) mmol/L Carbon Dioxide (22-30) mmol/L BUN (7-17) mg/dL Creatinine (0.52-1.04) mg/dL Glucose (74-99) mg/dL POC Glucose (mg/dL) 294 H (75-99) mg/dL Calcium (8.4-10.2) mg/dL Microbiology - Last 24 Hours (Table) 05/31/19 19:03 Blood Culture - Preliminary Blood No Growth after 96 hours 05/31/19 18:22 Blood Culture - Preliminary Blood No Growth after 96 hours Assessment and Plan Assessment: Symptomatic bradycardia/Mobitz type II heart block. Placed on transcutaneous pacemaker initially. Successfully placed transvenous pacemaker. Heart rate improved now. Possible Left lower lobe pneumonia. Unlikely sepsis. chronic CHF with systolic dysfunction. On Lasix at home.. Chronic Persistent Atrial fibrillation. Patient was bradycardic on admission.. On anticoagulation with Eliquis. Metoprolol and amiodarone on hold Hypoglycemia likely due to insulin at home. Diabetes type 2 insulin-dependent Hypertension Hyperlipidemia Nonischemic cardiomyopathy Hypothyroidism History of colectomy and colostomy. Para stomal hernia. Status post exploratory laparotomy and repair. And colostomy revision. Inflammatory bowel disease. Plan: Patient will be continued on telemetry monitoring. Status post transvenous pacemaker placement. Metoprolol and amiodarone is on hold. Metoprolol restarted at lower dose. Cardiology is following. Continue with antibiotics for left lower lobe pneumonia in the form of Zosyn. Anticoagulation is on hold due to surgery tomorrow. Can be restarted once cleared by surgery. Gen. surgery is following.. Time with Patient: Greater than 30
--- NOTE | 2019-06-05 16:10 | P.PN ---
Subjective Progress Note Date: 06/05/19 On the patient is postop day #2. Awake and alert. Following commands and answering questions. The patient underwent extensive laparotomy and repair of a parastomal normal hernia and partial colectomy and omentectomy and repair of an incisional hernia. She is doing well. There is liquidy output in the colostomy bag and some limited stool. No abdominal distention. No abdominal pain. No fever or chills. She did develop an acute kidney injury. She was resuscitated IV fluids. Her creatinine was elevated and is currently is up to 2.1. Nevertheless, the patient is producing adequate amount of urine output. The patient is in atrial fibrillation. Rate is controlled. She did have symptomatic bradycardia earlier secondary to a combination of amiodarone and metoprolol. The transvenous pacemaker was removed. She does have nonischemic cardiomyopathy with an ejection fraction of 20%. She also has hypertension and hyperlipidemia and diabetes mellitus. She is using incentive spirometer. No nausea or vomiting. No diarrhea or abdominal pain. No chest pain. Objective - Vital Signs Vital signs: Vital Signs Temp 98.6 F 06/05/19 12:00 Pulse 90 06/05/19 15:30 Resp 23 06/05/19 15:49 BP 106/72 06/05/19 15:00 Pulse Ox 99 06/05/19 15:00 Intake & Output 06/04/19 06/05/19 06/05/19 18:59 06:59 18:59 Intake Total 2640 1300 1100 Output Total 142 440 470 Balance 2498 860 630 Weight 62.2 kg 62.2 kg Intake: IV 2400 1300 1000 Dextrose 5% in Water 1, 300 1200 500 000 ml @ 100 mls/hr IV . [id number] ISABEL with Sodium Bicarb (1 Meq/ml) 150 ml Rx#:[id number] Piperacillin-Tazobactam 3 200 100 100 .375 gm In Sodium Chloride 0.9% 100 ml @ 25 mls/hr IVPB Q8HR IS[facility] Rx# :[id number] Sodium Chloride 0.9% 1, 900 000 ml @ 100 mls/hr IV . Q10H ISABEL Rx#:[id number] Sodium Chloride 0.9% 1, 400 000 ml @ 100 mls/hr IV . Q10H ISABEL Rx#:[id number] Sodium Chloride 0.9% 1, 1000 000 ml @ 999 mls/hr IV . Q1H1M ONE Rx#:[id number] Oral 240 100 Output: Drainage 25 Right Upper Abdomen 25 Urine 117 440 320 Stool 150 Other: Voiding Method Indwelling Catheter Indwelling Catheter Indwelling Catheter - Exam GENERAL EXAM: Alert, pleasant, 73-year-old white female, somewhat of a poor historian, oriented 3, comfortable in no apparent distress. HEAD: Normocephalic/atraumatic. EYES: Normal reaction of pupils, equal size. Conjunctiva pink, sclera white. NOSE: Clear with pink turbinates. THROAT: No erythema or exudates. NECK: No masses, no JVD, no thyroid enlargement, no adenopathy. Right IJ venous pacemaker in place VVI 50 CHEST: No chest wall deformity. Symmetrical expansion. LUNGS: Equal air entry with no crackles at the right lower base, diminished breath sounds at the left lower base CVS: His atrial fibrillation, irregular rhythm, irregular S1 and S2, no gallops, no murmurs, no rubs ABDOMEN: Soft, the surgical wound site is dry clean and intact. The patient has a new colostomy and the patient's previous colostomy site has been covered with appropriate dressing. The mid incisional site is dry clean and intact. Bowel sounds are sluggish at the present. No abdominal distention. No direct tenderness rebound tensile guarding. No ascites. No organomegaly.. EXTREMITIES: No clubbing, no edema, no cyanosis, 2+ pulses and upper and lower extremities. MUSCULOSKELETAL: Muscle strength and tone normal. SPINE: No scoliosis or deformity SKIN: No rashes CENTRAL NERVOUS SYSTEM: Alert and oriented -3. No focal deficits, tone is normal in all 4 extremities. PSYCHIATRIC: Alert and oriented -3. Appropriate affect. Intact judgment and insight. - Labs CBC & Chem 7: 06/05/19 06:19 06/05/19 06:19 Labs: Abnormal Lab Results - Last 24 Hours (Table) 06/04/19 06/04/19 06/05/19 Range/Units 18:33 21:35 06:19 RBC 3.03 L (3.80-5.40) m/uL Hgb 9.2 L D (11.4-16.0) gm/dL Hct 28.2 L (34.0-46.0) % RDW 16.1 H (11.5-15.5) % Sodium (137-145) mmol/L BUN (7-17) mg/dL Creatinine (0.52-1.04) mg/dL Glucose (74-99) mg/dL POC Glucose (mg/dL) 265 H 243 H (75-99) mg/dL Calcium (8.4-10.2) mg/dL 06/05/19 06/05/19 06/05/19 Range/Units 06:19 07:08 12:07 RBC (3.80-5.40) m/uL Hgb (11.4-16.0) gm/dL Hct (34.0-46.0) % RDW (11.5-15.5) % Sodium 135 L (137-145) mmol/L BUN 47 H (7-17) mg/dL Creatinine 2.11 H (0.52-1.04) mg/dL Glucose 185 H (74-99) mg/dL POC Glucose (mg/dL) 192 H 294 H (75-99) mg/dL Calcium 7.3 L (8.4-10.2) mg/dL Microbiology - Last 24 Hours (Table) 05/31/19 19:03 Blood Culture - Preliminary Blood No Growth after 96 hours 05/31/19 18:22 Blood Culture - Preliminary Blood No Growth after 96 hours Assessment and Plan Plan: #1. Symptomatic bradycardia, recovered and the patient has the transvenous pacemaker removed. The patient remains in atrial fibrillation with a controlled rate. #2. Exploratory laparotomy and lysis of adhesions in addition to repair of a parastomal hernia partial colectomy and omentectomy and repair of an incisional hernia. The patient is postop day # 2 #3. Non-anion gap metabolic acidosis recovered with a bicarb infusion and serum bicarb level is up to 24 #4. Acute kidney injury with a creatinine of of 2.1, nonoliguric #5. Right lower extremity wound, chronic, possibly diabetic ulcer #6. Nonischemic cardiomyopathy with baseline EF of 20-25%, a candidate for AICD placement #7. Hypoglycemia, improved #8. Diabetes Mellitus type II #9. Hypothyroidism #10. Inflammatory bowel disease status post colectomy and colostomy #11. Chronic persistent atrial fibrillation on Eliquis , currently Lovenox per chemical research engineer recommendations dose of 40 mg subcu every 12 hours. #12. Hypertension #13. Hyperlipidemia #14 small bilateral pleural effusions Plan Advance diet. Continue IV Zosyn. Monitor bowel activity and bowel output. Local wound care. Colostomy education and teaching to the patient. The patient is doing well. Creatinine is still elevated and this is to be monitored. Agree on Lovenox. Hold metoprolol and amiodarone for now. We'll continue to follow.
[2019-06-05 16:51] LABS: Glucose,Whole Blood 61 mg/dL (75-99)
[2019-06-05 16:53] LABS: Glucose,Whole Blood 71 mg/dL (75-99)
[2019-06-05 17:13] LABS: Glucose,Whole Blood 133 mg/dL (75-99)
[2019-06-05 20:20] LABS: Glucose,Whole Blood 115 mg/dL (75-99)
[2019-06-05] MEDS: ENOXAPARIN 40 MG/0.4 ML SYRINGE SQ SCH (20:24)
[2019-06-05] MEDS: ATORVASTATIN 10 MG TAB PO SCH (20:25)
[2019-06-06 06:04] LABS: Anisocytosis Slight; Basophils % (A) 1 %; Eosinophils # (A) 0.1 k/uL (0-0.7); Eosinophils % (A) 2 %; HCT 30.7 % (34.0-46.0); HGB 9.5 gm/dL (11.4-16.0); Lymphocytes # (A) 0.6 k/uL (1.0-4.8); Lymphocytes % (A) 11 %; MCH 29.4 pg (25.0-35.0); MCHC 30.9 g/dL (31.0-37.0); MCV 95.1 fL (80.0-100.0); Mean Platelet Volume 6.6; Monocytes # (A) 0.2 k/uL (0-1.0); Monocytes % (A) 4 %; Neutrophils % (A) 79 %; Platelet Count 173 k/uL (150-450); RBC 3.23 m/uL (3.80-5.40); RDW 16.4 % (11.5-15.5); WBC 5.1 k/uL (3.8-10.6)
--- NOTE | 2019-06-06 06:19 | XR ---
EXAMINATION TYPE: XR chest 1V portable DATE OF EXAM: 06/06/2019 HISTORY: Pneumonia . REFERENCE: Previous study dated 06/04/2019. FINDINGS: The heart is enlarged. There is bibasilar airspace disease. There are bilateral effusions. The overall appearance has not changed significantly. IMPRESSION: NO INTERVAL CHANGE IN APPEARANCE OF THE CHEST.
[2019-06-06 06:20] LABS: Calcium 7.5 mg/dL (8.4-10.2)
[2019-06-06] MEDS: INSULIN ASPART (NovoLOG) 100 UNIT/ML VIAL SQ SCH ×4 (06:39→20:11)
[2019-06-06 06:40] LABS: Glucose,Whole Blood 97 mg/dL (75-99)
[2019-06-06] MEDS: LEVOTHYROXINE 25 MCG TAB PO SCH (06:41)
[2019-06-06] MEDS: SODIUM CHLORIDE 0.9% 1,000 ML IV SCH ×3 (06:42→17:07)
[2019-06-06 07:01] LABS: Glucose,Whole Blood 73 mg/dL (75-99)
[2019-06-06 07:20] LABS: Glucose,Whole Blood 83 mg/dL (75-99)
[2019-06-06] MEDS: ONDANSETRON 4 MG/2 ML VIAL IVP PRN ×2 (07:57→18:32)
[2019-06-06] MEDS: IPRATROPIUM-ALBUTEROL 3 ML NEB INHALATION SCH ×4 (08:32→19:13)
[2019-06-06] MEDS: PANTOPRAZOLE 40 MG/10 ML VIAL IV SCH (08:46)
[2019-06-06] MEDS: BALSALAZIDE DISODIUM 750 MG CAPSULE PO SCH ×2 (08:46→20:15)
[2019-06-06] MEDS: ENOXAPARIN 40 MG/0.4 ML SYRINGE SQ SCH ×2 (08:46→20:15)
[2019-06-06] MEDS: LORATADINE 10 MG TAB PO SCH (08:47)
[2019-06-06] MEDS: CALCIUM CARB-VIT D 500MG-200UN 1 EACH TAB PO SCH (08:47)
[2019-06-06] MEDS: MULTIVITAMINS, THERA 1 EACH TAB PO SCH (08:47)
[2019-06-06] MEDS: MAGNESIUM OXIDE 400 MG TAB PO SCH ×2 (08:47→20:15)
[2019-06-06] MEDS: CALCIUM ACETATE 667 MG CAP PO SCH (08:47)
[2019-06-06] MEDS: METOPROLOL TARTRATE 12.5 MG TAB PO SCH ×2 (08:47→20:15)
[2019-06-06] MEDS: PIPERACILLIN-TAZOBACTAM 3.375 GM in SODIUM CHLORIDE 0.9% 100 ML IVPB SCH ×2 (08:47→20:15)
[2019-06-06] MEDS: HYDROmorphone 1 MG/ML 1 ML SYRINGE IVP PRN (08:57)
--- NOTE | 2019-06-06 10:11 | P.PN ---
Subjective Progress Note Date: 06/06/19 On 06/06/2019 the patient is postop day #3. She is looking well. She is sitting up on a chair. Ostomy is functional. No fever. No chills. She is taking oral intake in the form of clear liquid including popsicles. The patient does not have any abdominal distention and and she has no nausea or vomiting or emesis at this point in time. She is in atrial fibrillation and his rhythm is well-controlled for now. Her creatinine is stable at 2.2 and she is getting 0.9 mL of the rate of 100 mL an hour. White cell count is at 5.1. Hemoglobin is 9.5. The chest x-ray from today is showing some cardiomegaly and small bilateral pleural effusion lung bases bilaterally on room air oxygen. He is usi ng incentive spirometer and she is pulling approximately 500 mL on the IS. She was started on Lovenox for anticoagulation regarding her atrial fibrillation and she is receiving Lovenox at a dose of 40 SWhite blood culture ubcu every 12 hours. Antibiotic coverage is still with IV Zosyn. she has nonischemic cardiomyopathy with an ejection fraction of 20%. She has diabetes hypertension hyperlipidemia. She is postop day #3. Objective - Vital Signs Vital signs: Vital Signs Temp 97.7 F 06/06/19 08:00 Pulse 91 06/06/19 10:00 Resp 20 06/06/19 10:00 BP 154/98 06/06/19 10:00 Pulse Ox 93 L 06/06/19 09:00 Intake & Output 06/05/19 06/06/19 06/06/19 18:59 06:59 18:59 Intake Total 1600 1520 525 Output Total 615 585 180 Balance 985 935 345 Weight 62.2 kg 69.1 kg Intake: IV 1300 1400 300 Dextrose 5% in Water 1, 500 000 ml @ 100 mls/hr IV . [id number] ISABEL with Sodium Bicarb (1 Meq/ml) 150 ml Rx#:[id number] Piperacillin-Tazobactam 3 100 100 .375 gm In Sodium Chloride 0.9% 100 ml @ 25 mls/hr IVPB Q8HR [facility] Rx# :[id number] Sodium Chloride 0.9% 1, 700 1300 300 000 ml @ 100 mls/hr IV . Q10H IS[facility]EL Rx#:[id number] Intake, IV Titration 100 Amount Piperacillin-Tazobactam 3 100 .375 gm In Sodium Chloride 0.9% 100 ml @ 25 mls/hr IVPB Q12HR [facility] Rx #:[id number] Oral 300 120 125 Output: Drainage 60 50 Right Upper Abdomen 60 50 Urine 405 535 180 Stool 150 Other: Voiding Method Indwelling Catheter Indwelling Catheter Indwelling Catheter - Exam GENERAL EXAM: Alert, pleasant, 73-year-old white female, somewhat of a poor historian, oriented 3, comfortable in no apparent distress. HEAD: Normocephalic/atraumatic. EYES: Normal reaction of pupils, equal size. Conjunctiva pink, sclera white. NOSE: Clear with pink turbinates. THROAT: No erythema or exudates. NECK: No masses, no JVD, no thyroid enlargement, no adenopathy. Right IJ venous pacemaker in place VVI 50 CHEST: No chest wall deformity. Symmetrical expansion. LUNGS: Equal air entry with no crackles at the right lower base, diminished breath sounds at the left lower base CVS: His atrial fibrillation, irregular rhythm, irregular S1 and S2, no gallops, no murmurs, no rubs ABDOMEN: Soft, the surgical wound site is dry clean and intact. The patient has a new colostomy and the patient's previous colostomy site has been covered with appropriate dressing. The mid incisional site is dry clean and intact. Bowel sounds are sluggish at the present. No abdominal distention. No direct tenderness rebound tensile guarding. No ascites. No organomegaly.. EXTREMITIES: No clubbing, no edema, no cyanosis, 2+ pulses and upper and lower extremities. MUSCULOSKELETAL: Muscle strength and tone normal. SPINE: No scoliosis or deformity SKIN: No rashes CENTRAL NERVOUS SYSTEM: Alert and oriented -3. No focal deficits, tone is normal in all 4 extremities. PSYCHIATRIC: Alert and oriented -3. Appropriate affect. Intact judgment and insight. - Labs CBC & Chem 7: 06/06/19 05:25 06/06/19 05:25 Labs: Abnormal Lab Results - Last 24 Hours (Table) 06/05/19 06/05/19 06/05/19 Range/Units 12:07 16:49 16:51 RBC (3.80-5.40) m/uL Hgb (11.4-16.0) gm/dL Hct (34.0-46.0) % MCHC (31.0-37.0) g/dL RDW (11.5-15.5) % Lymphocytes # (1.0-4.8) k/uL BUN (7-17) mg/dL Creatinine (0.52-1.04) mg/dL POC Glucose (mg/dL) 294 H 61 L 71 L (75-99) mg/dL Calcium (8.4-10.2) mg/dL 06/05/19 06/05/19 06/06/19 Range/Units 17:11 20:18 05:25 RBC 3.23 L (3.80-5.40) m/uL Hgb 9.5 L (11.4-16.0) gm/dL Hct 30.7 L (34.0-46.0) % MCHC 30.9 L (31.0-37.0) g/dL RDW 16.4 H (11.5-15.5) % Lymphocytes # 0.6 L (1.0-4.8) k/uL BUN (7-17) mg/dL Creatinine (0.52-1.04) mg/dL POC Glucose (mg/dL) 133 H 115 H (75-99) mg/dL Calcium (8.4-10.2) mg/dL 06/06/19 06/06/19 Range/Units 05:25 06:59 RBC (3.80-5.40) m/uL Hgb (11.4-16.0) gm/dL Hct (34.0-46.0) % MCHC (31.0-37.0) g/dL RDW (11.5-15.5) % Lymphocytes # (1.0-4.8) k/uL BUN 45 H (7-17) mg/dL Creatinine 2.25 H (0.52-1.04) mg/dL POC Glucose (mg/dL) 73 L (75-99) mg/dL Calcium 7.5 L (8.4-10.2) mg/dL Microbiology - Last 24 Hours (Table) 05/31/19 18:22 Blood Culture - Preliminary Blood No Growth after 120 hours 05/31/19 19:03 Blood Culture - Preliminary Blood No Growth after 120 hours Assessment and Plan Plan: #1. Symptomatic bradycardia, recovered and the patient has the transvenous pacemaker removed. The patient remains in atrial fibrillation with a controlled rate. The patient is in A. fib and she is on Lovenox for anticoagulation and the patient's rate is controlled #2. Exploratory laparotomy and lysis of adhesions in addition to repair of a parastomal hernia partial colectomy and omentectomy and repair of an incisional hernia. The patient is postop day # 3, and she is on popsicles and some ice chips. #3. Non-anion gap metabolic acidosis recovered with a bicarb infusion and serum bicarb level is up to 24 #4. Acute kidney injury with a creatinine of of 2.2, nonoliguric, producing urine output in the order of 30-40 mL an hour. #5. Right lower extremity wound, chronic, possibly diabetic ulcer #6. Nonischemic cardiomyopathy with baseline EF of 20-25%, a candidate for AICD placement #7. Hypoglycemia, improved #8. Diabetes Mellitus type II #9. Hypothyroidism #10. Inflammatory bowel disease status post colectomy and colostomy #11. Chronic persistent atrial fibrillation on Eliquis , currently Lovenox per airline reservationist recommendations dose of 40 mg subcu every 12 hours. #12. Hypertension #13. Hyperlipidemia #14 small bilateral pleural effusions Plan Surgery to evaluate the patient and decide on advancing the diet. She is in atrial fibrillation. Rate is controlled patient anticoagulation. She is postop day #3. She is using incentive spirometer. We'll continue to follow. Local wound care. Colostomy education. Keep her in ICU for another 24 hours.
--- NOTE | 2019-06-06 11:08 | P.PN ---
Progress Note - Text Progress Note Date: 06/06/19 The patient's postoperative day 3 from repair of parastomal and incisional hernia. She's had no significant output through her ostomy. She has minimal clearance of pain. On exam her vital signs are stable. Her abdomen is soft. Incision site is clean dry intact. Colostomy is pink. There is very little output in the colostomy bag. Status post repair of parastomal incisional hernia with extensive lysis of adhesions. Patient will remain nothing by mouth for now. We will advance her diet as her bowel function returns.
[2019-06-06 11:49] LABS: Glucose,Whole Blood 178 mg/dL (75-99)
--- NOTE | 2019-06-06 13:47 | P.PN ---
Subjective Progress Note Date: 06/06/19 Principal diagnosis: Status post repair of parastomal incisional hernia/adhenolysis symptomatic bradycardia Acute renal injury 71-year-old female with a known history of chronic atrial fibrillation on metoprolol and amiodarone, was initially admitted to the hospital due to bradyca rdia. Patient is status post transvenous pacemaker placement. Currently maintaining heart rate. Patient was started back on low-dose beta blockers 06/05/2019 Patient is seen and evaluated in ICU; patient is awake and alert but somewhat confused Vital signs remained stable with pulse of 92, respiration 18 and blood pressure 106/72 with SpO2 of 99% on 2 L Labs show a white blood count of 7.7, hemoglobin of 9.2 which is an acute drop from 12.3 yesterday and platelet count of 166; sodium 135 with potassium of 3.9; B UN/creatinine of 47/2.11 trending From 35/1.87 yesterday; blood sugars remain elevated between 192 - 294 Patient with symptomatic bradycardia secondary to high dose amiodarone and metoprolol; remains in atrial fibrillation with heart rate in 90s; echoc ardiogram showing ejection fraction of 20%; transvenous pacemaker has been removed; cardiology is following and recommending to continue with low-dose metoprolol for rate control and restart Eliquis when okayed by surgery 06/06/2019 patient is postop day #3 incisional hernia repair. patient is sitting up on a chair. Ostomy is functional. No fever. No chills. patient has been started on clear liquid including popsicles. The patient does not have any abdominal distention and and she has no nausea or vomiting or emesis at this point in time. She is in atrial fibrillation and his rhythm is well-controlled for now. Her creatinine is stable at 2.2 and she is getting 0.9 mL of the rate of 100 mL an hour. White cell count is at 5.1. Hemoglobin is 9.5. The chest x-ray from today is showing some cardiomegaly and small bilateral pleural effusion lung bases bilaterally on room air oxygen. continue with incentive spirometer. She was started on Lovenox for anticoagulation regarding her atrial fibrillation and she is receiving Lovenox at a dose of 40 SWhite blood culture ubcu every 12 hours. Antibiotic coverage is still with IV Zosyn. she has nonischemic cardiomyopathy with an ejection fraction of 20%. She has diabetes hypertension hyperlipidemia. Objective - Vital Signs Vital signs: Vital Signs Temp 97.7 F 06/06/19 08:00 Pulse 91 06/06/19 10:00 Resp 20 06/06/19 10:00 BP 154/98 06/06/19 10:00 Pulse Ox 93 L 06/06/19 09:00 Intake & Output 06/05/19 06/06/19 06/06/19 18:59 06:59 18:59 Intake Total 1600 1520 525 Output Total 615 585 180 Balance 985 935 345 Weight 62.2 kg 69.1 kg Intake: IV 1300 1400 300 Dextrose 5% in Water 1, 500 000 ml @ 100 mls/hr IV . [id number] ISABEL with Sodium Bicarb (1 Meq/ml) 150 ml Rx#:[id number] Piperacillin-Tazobactam 3 100 100 .375 gm In Sodium Chloride 0.9% 100 ml @ 25 mls/hr IVPB Q8HR [facility] Rx# :[id number] Sodium Chloride 0.9% 1, 700 1300 300 000 ml @ 100 mls/hr IV . Q10H ISABEL Rx#:[id number] Intake, IV Titration 100 Amount Piperacillin-Tazobactam 3 100 .375 gm In Sodium Chloride 0.9% 100 ml @ 25 mls/hr IVPB Q12HR [facility]EL Rx #:[id number] Oral 300 120 125 Output: Drainage 60 50 Right Upper Abdomen 60 50 Urine 405 535 180 Stool 150 Other: Voiding Method Indwelling Catheter Indwelling Catheter Indwelling Catheter - Exam HEENT: Normocephalic. Neck is supple. Pupils reactive. Nostrils clear. Oral cavity is moist. Ears reveal no drainage. Neck reveals no JVD, carotid bruits, or thyromegaly. CHEST EXAMINATION: Trachea is central. Symmetrical expansion. Bibasilar crackles and diminished sounds. Otherwise Lung dior clear to auscultation and percussion. CARDIAC: Normal S1, S2 with no gallops. No murmurs ABDOMEN: Soft. Left-sided abdominal wall skin excoriation around the ostomy. Ostomy bag in place. Bowel sounds normal. No organomegaly. No abdominal bruits. Extremities: reveal no edema. No clubbing or cyanosis - Labs CBC & Chem 7: 06/06/19 05:25 06/06/19 05:25 Labs: Abnormal Lab Results - Last 24 Hours (Table) 06/05/19 06/05/19 06/05/19 Range/Units 12:07 16:49 16:51 RBC (3.80-5.40) m/uL Hgb (11.4-16.0) gm/dL Hct (34.0-46.0) % MCHC (31.0-37.0) g/dL RDW (11.5-15.5) % Lymphocytes # (1.0-4.8) k/uL BUN (7-17) mg/dL Creatinine (0.52-1.04) mg/dL POC Glucose (mg/dL) 294 H 61 L 71 L (75-99) mg/dL Calcium (8.4-10.2) mg/dL 06/05/19 06/05/19 06/06/19 Range/Units 17:11 20:18 05:25 RBC 3.23 L (3.80-5.40) m/uL Hgb 9.5 L (11.4-16.0) gm/dL Hct 30.7 L (34.0-46.0) % MCHC 30.9 L (31.0-37.0) g/dL RDW 16.4 H (11.5-15.5) % Lymphocytes # 0.6 L (1.0-4.8) k/uL BUN (7-17) mg/dL Creatinine (0.52-1.04) mg/dL POC Glucose (mg/dL) 133 H 115 H (75-99) mg/dL Calcium (8.4-10.2) mg/dL 06/06/19 06/06/19 Range/Units 05:25 06:59 RBC (3.80-5.40) m/uL Hgb (11.4-16.0) gm/dL Hct (34.0-46.0) % MCHC (31.0-37.0) g/dL RDW (11.5-15.5) % Lymphocytes # (1.0-4.8) k/uL BUN 45 H (7-17) mg/dL Creatinine 2.25 H (0.52-1.04) mg/dL POC Glucose (mg/dL) 73 L (75-99) mg/dL Calcium 7.5 L (8.4-10.2) mg/dL Microbiology - Last 24 Hours (Table) 05/31/19 18:22 Blood Culture - Preliminary Blood No Growth after 120 hours 05/31/19 19:03 Blood Culture - Preliminary Blood No Growth after 120 hours Assessment and Plan Assessment: Symptomatic bradycardia/Mobitz type II heart block. Placed on transcutaneous pacemaker initially. Successfully placed transvenous pacemaker. Heart rate improved now. Possible Left lower lobe pneumonia. Unlikely sepsis. chronic CHF with systolic dysfunction. On Lasix at home.. Chronic Persistent Atrial fibrillation. Patient was bradycardic on admission.. On anticoagulation with Eliquis. Metoprolol and amiodarone on hold Hypoglycemia likely due to insulin at home. Diabetes type 2 insulin-dependent Hypertension Hyperlipidemia Nonischemic cardiomyopathy Hypothyroidism History of colectomy and colostomy. Para stomal hernia. Status post exploratory laparotomy and repair. And co lostomy revision. Inflammatory bowel disease. Plan: Patient will be continued on telemetry monitoring. Status post transvenous pacemaker placement. Metoprolol and amiodarone is on hold. Metoprolol restarted at lower dose. Cardiology is following. Continue with antibiotics for left lower lobe pneumonia in the form of Zosyn. Anticoagulation is on hold due to surgery tomorrow. Can be restarted once cleared by surgery. Gen. surgery is following.. Time with Patient: Greater than 30
--- NOTE | 2019-06-06 16:20 | P.PN ---
<Radha Ruiz - Last Filed: 06/06/19 16:12> Subjective This is Radha Ruiz PA-C dictating a progress note on this patient The patient was interviewed and examined by me as well as by Dr. iMn Case discussed with Dr. Min and he agrees with the plan of care IMPRESSION / ASSESSMENT: symptomatic bradycardia secondary to high dose amiodarone and metoprolol, patient remains in A. fib with rates in the 80s post removal of transvenous pacemaker Persistent atrial fibrillation, rates in the 90s, has been started on Lovenox nonischemic cardiomyopathy, previous echo showing EF 20% Hypertension, blood pressure stable Dyslipidemia diabetes History of bowel resection and colostomy, post op day #3 s/p exploratory laparoscopy, lysis of lesions, repair of parasternal hernia, partial colectomy, partial omentectomy, and repair of incisional hernia Dementia HAL PLAN: Continue low-dose metoprolol for rate control Has been started on Lovenox, will restart eliquis when okay with surgery medical management for cardiomyopathy only HPI/interval history Patient is a 73-year-old female with past medical history significant for persistent atrial fibrillation, type 2 diabetes, hypertension, dyslipidemia, nonischemic cardiomyopathy, colostomy, and dementia who presented with AMS and was admitted for treatment of sepsis. She was found to have significant sinus bradycardia and underwent a temporary transvenous pacemaker placement. During the admission, she was evaluated by surgery for her ostomy, and underwent an exploratory laparotomy and hernia repair and repair of her ostomy. Her rates have been well controlled on the low dose of metoprolol and her transvenous pacemaker is removed yesterday. Patient did well overnight. Telemetry reveals A. fib with rates in the 80s. Patient seen and examined sitting up in bed. She does have some postoperative pain. Denies any palpitations, dizziness, chest pa in or shortness of breath. EXAMINATION Temperature 98.6F, pulse 70, respirations 14, blood pressure 111/63, oxygen saturation 96% on room air Patient seen and examined resting comfortably in bed, in no acute distress Lungs are clear to auscultation bilaterally heart is irregular, no murmurs noted no elevated JVD No lower extremity edema REVIEW OF LABS, ECG WBC 5.1, hemoglobin 9.5, platelets 173, potassium 4.0, BUN 45, creatinine 2.25 Objective - Vital Signs Vital signs: Vital Signs Temp 98.1 F 06/06/19 12:00 Pulse 91 06/06/19 16:03 Resp 14 06/06/19 15:00 BP 138/104 06/06/19 15:00 Pulse Ox 93 L 06/06/19 15:00 Intake & Output 06/05/19 06/06/19 06/06/19 18:59 06:59 18:59 Intake Total 1600 1520 1025 Output Total 615 585 505 Balance 985 935 520 Weight 62.2 kg 69.1 kg Intake: IV 1300 1400 800 Dextrose 5% in Water 1, 500 000 ml @ 100 mls/hr IV . [id number] [facility] with Sodium Bicarb (1 Meq/ml) 150 ml Rx#:[id number] Piperacillin-Tazobactam 3 100 100 .375 gm In Sodium Chloride 0.9% 100 ml @ 25 mls/hr IVPB Q8HR [facility] Rx# :[id number] Sodium Chloride 0.9% 1, 700 1300 800 000 ml @ 100 mls/hr IV . Q10H [facility] Rx#:[id number] Intake, IV Titration 100 Amount Piperacillin-Tazobactam 3 100 .375 gm In Sodium Chloride 0.9% 100 ml @ 25 mls/hr IVPB Q12HR [facility] Rx #:[id number] Oral 300 120 125 Output: Drainage 60 50 180 Right Upper Abdomen 60 50 180 Urine 405 535 325 Stool 150 Other: Voiding Method Indwelling Catheter Indwelling Catheter Indwelling Catheter - Labs CBC & Chem 7: 06/06/19 05:25 06/06/19 05:25 Labs: Abnormal Lab Results - Last 24 Hours (Table) 06/05/19 06/05/19 06/05/19 Range/Units 16:49 16:51 17:11 RBC (3.80-5.40) m/uL Hgb (11.4-16.0) gm/dL Hct (34.0-46.0) % MCHC (31.0-37.0) g/dL RDW (11.5-15.5) % Lymphocytes # (1.0-4.8) k/uL BUN (7-17) mg/dL Creatinine (0.52-1.04) mg/dL POC Glucose (mg/dL) 61 L 71 L 133 H (75-99) mg/dL Calcium (8.4-10.2) mg/dL 06/05/19 06/06/19 06/06/19 Range/Units 20:18 05:25 05:25 RBC 3.23 L (3.80-5.40) m/uL Hgb 9.5 L (11.4-16.0) gm/dL Hct 30.7 L (34.0-46.0) % MCHC 30.9 L (31.0-37.0) g/dL RDW 16.4 H (11.5-15.5) % Lymphocytes # 0.6 L (1.0-4.8) k/uL BUN 45 H (7-17) mg/dL Creatinine 2.25 H (0.52-1.04) mg/dL POC Glucose (mg/dL) 115 H (75-99) mg/dL Calcium 7.5 L (8.4-10.2) mg/dL 06/06/19 06/06/19 Range/Units 06:59 11:48 RBC (3.80-5.40) m/uL Hgb (11.4-16.0) gm/dL Hct (34.0-46.0) % MCHC (31.0-37.0) g/dL RDW (11.5-15.5) % Lymphocytes # (1.0-4.8) k/uL BUN (7-17) mg/dL Creatinine (0.52-1.04) mg/dL POC Glucose (mg/dL) 73 L 178 H (75-99) mg/dL Calcium (8.4-10.2) mg/dL Microbiology - Last 24 Hours (Table) 05/31/19 18:22 Blood Culture - Preliminary Blood No Growth after 120 hours 05/31/19 19:03 Blood Culture - Preliminary Blood No Growth after 120 hours <Yair Min - Last Filed: 06/06/19 21:21> Subjective Heart rates 9210 beats a minute No further bradycardia Avoid amiodarone Increase metoprolol to 25 mg twice daily Escalating creatinine noted Switched from Lovenox to heparin subcutaneous 5000 every 8 hours SCDs for DVT prophylaxis Objective - Vital Signs Vital signs: Vital Signs Temp 98.6 F 06/06/19 20:00 Pulse 100 06/06/19 21:00 Resp 15 06/06/19 21:00 BP 163/97 06/06/19 21:00 Pulse Ox 94 L 06/06/19 21:00 Intake & Output 06/06/19 06/06/19 06/07/19 06:59 18:59 06:59 Intake Total 1520 1675 300 Output Total 585 695 140 Balance 935 980 160 Weight 69.1 kg Intake: IV 1400 1100 300 Piperacillin-Tazobactam 3 100 .375 gm In Sodium Chloride 0.9% 100 ml @ 25 mls/hr IVPB Q8HR [facility] Rx# :[id number] Sodium Chloride 0.9% 1, 1300 1100 300 000 ml @ 100 mls/hr IV . Q10H [facility] Rx#:[id number] Intake, IV Titration 100 Amount Piperacillin-Tazobactam 3 100 .375 gm In Sodium Chloride 0.9% 100 ml @ 25 mls/hr IVPB Q12HR [facility] Rx #:[id number] Oral 120 475 Output: Drainage 50 270 40 Right Upper Abdomen 50 270 40 Urine 535 425 100 Other: Voiding Method Indwelling Catheter Indwelling Catheter Indwelling Catheter - Labs CBC & Chem 7: 06/06/19 05:25 06/06/19 05:25 Labs: Abnormal Lab Results - Last 24 Hours (Table) 06/06/19 06/06/19 06/06/19 Range/Units 05:25 05:25 06:59 RBC 3.23 L (3.80-5.40) m/uL Hgb 9.5 L (11.4-16.0) gm/dL Hct 30.7 L (34.0-46.0) % MCHC 30.9 L (31.0-37.0) g/dL RDW 16.4 H (11.5-15.5) % Lymphocytes # 0.6 L (1.0-4.8) k/uL BUN 45 H (7-17) mg/dL Creatinine 2.25 H (0.52-1.04) mg/dL POC Glucose (mg/dL) 73 L (75-99) mg/dL Calcium 7.5 L (8.4-10.2) mg/dL 06/06/19 06/06/19 06/06/19 Range/Units 11:48 16:58 20:11 RBC (3.80-5.40) m/uL Hgb (11.4-16.0) gm/dL Hct (34.0-46.0) % MCHC (31.0-37.0) g/dL RDW (11.5-15.5) % Lymphocytes # (1.0-4.8) k/uL BUN (7-17) mg/dL Creatinine (0.52-1.04) mg/dL POC Glucose (mg/dL) 178 H 157 H 131 H (75-99) mg/dL Calcium (8.4-10.2) mg/dL Microbiology - Last 24 Hours (Table) 05/31/19 18:22 Blood Culture - Final Blood No Growth after 144 hours 05/31/19 19:03 Blood Culture - Final Blood No Growth after 144 hours
[2019-06-06 16:59] LABS: Glucose,Whole Blood 157 mg/dL (75-99)
[2019-06-06 20:12] LABS: Glucose,Whole Blood 131 mg/dL (75-99)
[2019-06-06] MEDS: ATORVASTATIN 10 MG TAB PO SCH (20:15)
[2019-06-06] MEDS: HEPARIN SODIUM,PORCINE 5,000 UNIT/ML 1 ML VIAL SQ SCH (22:03)
[2019-06-07] MEDS: SODIUM CHLORIDE 0.9% 1,000 ML IV SCH ×2 (04:24→18:09)
[2019-06-07 06:21] LABS: Calcium 7.7 mg/dL (8.4-10.2); Potassium 3.8 mmol/L (3.5-5.1)
[2019-06-07 06:32] LABS: Basophils % (A) 1 %; Eosinophils # (A) 0.1 k/uL (0-0.7); Eosinophils % (A) 3 %; HCT 31.5 % (34.0-46.0); HGB 10.2 gm/dL (11.4-16.0); Hypochromasia Slight; Lymphocytes # (A) 0.7 k/uL (1.0-4.8); Lymphocytes % (A) 16 %; MCH 30.8 pg (25.0-35.0); MCHC 32.4 g/dL (31.0-37.0); MCV 95.2 fL (80.0-100.0); Mean Platelet Volume 6.2; Monocytes # (A) 0.2 k/uL (0-1.0); Monocytes % (A) 4 %; Neutrophils # (A) 3.4 k/uL (1.3-7.7); Neutrophils % (A) 72 %; Platelet Count 170 k/uL (150-450); RBC 3.31 m/uL (3.80-5.40); WBC 4.6 k/uL (3.8-10.6)
[2019-06-07 06:34] LABS: Glucose,Whole Blood 132 mg/dL (75-99)
[2019-06-07] MEDS: INSULIN ASPART (NovoLOG) 100 UNIT/ML VIAL SQ SCH ×4 (06:34→20:16)
[2019-06-07] MEDS: LEVOTHYROXINE 25 MCG TAB PO SCH (06:36)
[2019-06-07] MEDS: IPRATROPIUM-ALBUTEROL 3 ML NEB INHALATION SCH ×4 (07:58→21:14)
[2019-06-07] MEDS: BALSALAZIDE DISODIUM 750 MG CAPSULE PO SCH ×2 (08:39→20:09)
[2019-06-07] MEDS: MAGNESIUM OXIDE 400 MG TAB PO SCH ×2 (08:39→20:08)
[2019-06-07] MEDS: HEPARIN SODIUM,PORCINE 5,000 UNIT/ML 1 ML VIAL SQ SCH ×3 (08:39→23:31)
[2019-06-07] MEDS: PANTOPRAZOLE 40 MG/10 ML VIAL IV SCH (08:40)
[2019-06-07] MEDS: PIPERACILLIN-TAZOBACTAM 3.375 GM in SODIUM CHLORIDE 0.9% 100 ML IVPB SCH ×2 (08:40→20:09)
[2019-06-07] MEDS: CALCIUM ACETATE 667 MG CAP PO SCH (08:40)
[2019-06-07] MEDS: MULTIVITAMINS, THERA 1 EACH TAB PO SCH (08:40)
[2019-06-07] MEDS: LORATADINE 10 MG TAB PO SCH (08:40)
[2019-06-07] MEDS: CALCIUM CARB-VIT D 500MG-200UN 1 EACH TAB PO SCH (08:40)
[2019-06-07] MEDS ORDERED: METOPROLOL TARTRATE 25 MG TAB PO SCH (09:00)
--- NOTE | 2019-06-07 09:37 | P.PN ---
Progress Note - Text Progress Note Date: 06/07/19 The patient is resting comfortably her bed. She is slowly improving overall. She has some gas in her colostomy bag today. On exam her vital signs are stable. Her incision site is clean dry intact. Patient will have her diet slowly increased.
[2019-06-07 11:29] LABS: Glucose,Whole Blood 205 mg/dL (75-99)
--- NOTE | 2019-06-07 11:35 | P.PN ---
Subjective Progress Note Date: 06/07/19 On 06/07/2019 the patient is postop day #4. The patient is doing well. She has no specific complaints. She has some gas and bowel activity in the colostomy bag. Based on that she was advanced to full liquid diet. She remains on IV Zosyn. She remains in atrial fibrillation. She has nonischemic cardiomyopathy with an EF around 20%. She has hypertension and hyperlipidemia. She is awake and alert. She is on room air oxygen. Her A. fib is under good control. Lopressor has been restarted at a dose of 25 mg by mouth twice a day. She is very weak. She is not ambulating yet. No nausea. No vomiting. No emesis. White cell count is at 4.6 with a hemoglobin of 10.2. Creatinine is also stable at 2.05. Objective - Vital Signs Vital signs: Vital Signs Temp 98.3 F 06/07/19 08:00 Pulse 90 06/07/19 11:00 Resp 10 L 06/07/19 11:00 BP 146/98 06/07/19 11:00 Pulse Ox 94 L 06/07/19 11:00 Intake & Output 06/06/19 06/07/19 06/07/19 18:59 06:59 18:59 Intake Total 1675 1300 870 Output Total 695 465 205 Balance 980 835 665 Weight 70.6 kg Intake: IV 1100 1200 500 Sodium Chloride 0.9% 1, 1100 1200 500 000 ml @ 100 mls/hr IV . Q10H [facility] Rx#:[id number] Intake, IV Titration 100 100 Amount Piperacillin-Tazobactam 3 100 100 .375 gm In Sodium Chloride 0.9% 100 ml @ 25 mls/hr IVPB Q12HR [facility] Rx #:[id number] Oral 475 100 270 Output: Drainage 270 100 Right Upper Abdomen 270 100 Urine 425 365 155 Stool 50 Other: Voiding Method Indwelling Catheter Indwelling Catheter Indwelling Catheter - Exam GENERAL EXAM: Alert, pleasant, 73-year-old white female, somewhat of a poor historian, oriented 3, comfortable in no apparent distress. HEAD: Normocephalic/atraumatic. EYES: Normal reaction of pupils, equal size. Conjunctiva pink, sclera white. NOSE: Clear with pink turbinates. THROAT: No erythema or exudates. NECK: No masses, no JVD, no thyroid enlargement, no adenopathy. CHEST: No chest wall deformity. Symmetrical expansion. LUNGS: Equal air entry with no crackles at the right lower base, diminished breath sounds at the left lower base CVS: His atrial fibrillation, irregular rhythm, irregular S1 and S2, no gallops, no murmurs, no rubs ABDOMEN: Soft, the surgical wound site is dry clean and intact. The patient has a new colostomy and the patient's previous colostomy site has been covered with appropriate dressing. The mid incisional site is dry clean and intact. Bowel sounds are sluggish at the present. No abdominal distention. No direct tenderness rebound tensile guarding. No ascites. No organomegaly.. The bowel sounds are hypoactive. There is positive output in the colostomy bag including gas and stool material. EXTREMITIES: No clubbing, no edema, no cyanosis, 2+ pulses and upper and lower extremities. MUSCULOSKELETAL: Muscle strength and tone normal. SPINE: No scoliosis or deformity SKIN: No rashes CENTRAL NERVOUS SYSTEM: Alert and oriented -3. No focal deficits, tone is normal in all 4 extremities. PSYCHIATRIC: Alert and oriented -3. Appropriate affect. Intact judgment and insight. - Labs CBC & Chem 7: 06/07/19 05:36 06/07/19 05:36 Labs: Abnormal Lab Results - Last 24 Hours (Table) 06/06/19 06/06/19 06/06/19 Range/Units 11:48 16:58 20:11 RBC (3.80-5.40) m/uL Hgb (11.4-16.0) gm/dL Hct (34.0-46.0) % RDW (11.5-15.5) % Lymphocytes # (1.0-4.8) k/uL Carbon Dioxide (22-30) mmol/L BUN (7-17) mg/dL Creatinine (0.52-1.04) mg/dL POC Glucose (mg/dL) 178 H 157 H 131 H (75-99) mg/dL Calcium (8.4-10.2) mg/dL 06/07/19 06/07/19 06/07/19 Range/Units 05:36 05:36 06:33 RBC 3.31 L (3.80-5.40) m/uL Hgb 10.2 L (11.4-16.0) gm/dL Hct 31.5 L (34.0-46.0) % RDW 16.0 H (11.5-15.5) % Lymphocytes # 0.7 L (1.0-4.8) k/uL Carbon Dioxide 21 L (22-30) mmol/L BUN 45 H (7-17) mg/dL Creatinine 2.05 H (0.52-1.04) mg/dL POC Glucose (mg/dL) 132 H (75-99) mg/dL Calcium 7.7 L (8.4-10.2) mg/dL 06/07/19 Range/Units 11:27 RBC (3.80-5.40) m/uL Hgb (11.4-16.0) gm/dL Hct (34.0-46.0) % RDW (11.5-15.5) % Lymphocytes # (1.0-4.8) k/uL Carbon Dioxide (22-30) mmol/L BUN (7-17) mg/dL Creatinine (0.52-1.04) mg/dL POC Glucose (mg/dL) 205 H (75-99) mg/dL Calcium (8.4-10.2) mg/dL Microbiology - Last 24 Hours (Table) 05/31/19 18:22 Blood Culture - Final Blood No Growth after 144 hours 05/31/19 19:03 Blood Culture - Final Blood No Growth after 144 hours Assessment and Plan Plan: #1. Symptomatic bradycardia, recovered and the patient has the transvenous pa cemaker removed. The patient remains in atrial fibrillation with a controlled rate. The patient is in A. fib and she is restarted back on Lopressor 25 mg twice a day in the chart 70 progress will be left up to cardiology. The patient was Eliquis prior to her coming into the hospital. #2. Exploratory laparotomy and lysis of adhesions in addition to repair of a parastomal hernia partial colectomy and omentectomy and repair of an incisional hernia. The patient is postop day # 4, and she is being advanced to a full liquid diet as the patient is having adequate output and had colostomy bag. #3. Non-anion gap metabolic acidosis recovered with a bicarb infusion and serum bicarb level is up to 21 #4. Acute kidney injury with a creatinine of of 2.0, nonoliguric, producing urine output #5. Right lower extremity wound, chronic, possibly diabetic ulcer #6. Nonischemic cardiomyopathy with baseline EF of 20-25%, a candidate for AICD placement #7. Hypoglycemia, improved #8. Diabetes Mellitus type II #9. Hypothyroidism #10. Inflammatory bowel disease status post colectomy and colostomy #11. Chronic persistent atrial fibrillation on Eliquis , currently Lovenox per hotel service supervisor recommendations dose of 40 mg subcu every 12 hours. #12. Hypertension #13. Hyperlipidemia #14 small bilateral pleural effusions Plan Advance diet as tolerated. Agree on restarting Lopressor for rate control. Anti-correlation shows to be kept up to cardiology. I think it's reasonable to restart Eliquis her home anticoagulants. Monitor the output from the colostomy bag. Wound site is clean. We'll continue to follow. She is weak. She will need rehabilitation. I'll keep her in ICU for another 24 hours. Kept on IV fluids down to 40 mL an hour.
[2019-06-07] MEDS ORDERED: FUROSEMIDE 10 MG/ML 2 ML VIAL IV STA (12:55)
--- NOTE | 2019-06-07 14:03 | P.PN ---
Subjective This is Radha Ruiz PA-C dictating a progress note on this patient The patient was interviewed and examined by me as well as by Dr. Min Case discussed with Dr. Min and he agrees with the plan of care IMPRESSION / ASSESSMENT: symptomatic bradycardia secondary to high dose amiodarone and metoprolol, patient remains in A. fib with rates in the 100s post removal of transvenous pacemaker Persistent atrial fibrillation, rates in the 90s, eliquis has been restarted nonischemic cardiomyopathy, previous echo showing EF 20% Hypertension, blood pressure has been elevated in the 170s systolic despite increased dose of metoprolol Dyslipidemia diabetes History of bowel resection and colostomy, post op day #4 s/p exploratory laparoscopy, lysis of lesions, repair of parasternal hernia, partial colectomy, partial omentectomy, and repair of incisional hernia Dementia [place] PLAN: switch to metoprolol to carvedilol 3.125 twice a day for rate control and blood pressure control medical management for cardiomyopathy only HPI/interval history Patient is a 73-year-old female with past medical history significant for persistent atrial fibrillation, type 2 diabetes, hypertension, dyslipidemia, nonischemic cardiomyopathy, colostomy, and dementia who presented with AMS and was admitted for treatment of sepsis. She was found to have significant sinus bradycardia and underwent a temporary transvenous pacemaker placement. During the admission, she was evaluated by surgery for her ostomy, and underwent an exploratory laparotomy and hernia repair and repair of her ostomy. Yesterday we increased her metoprolol. Telemetry reveals A. fib with rates in the 100s. Blood pressure has also been elevated. Patient seen and examined , complaining of some postoperative pain but states that pain medication helps. Denies any palpitations, shortness of breath or chest pain. EXAMINATION I temperature 98.2F, pulse 99, respirations 14, blood pressure 146/98, oxygen saturation 94% on room air Patient seen and examined resting comfortably in bed, in no acute distress Lungs are clear to auscultation bilaterally heart is irregular, likely tachycardic no murmurs noted no elevated JVD No lower extremity edema REVIEW OF LABS, ECG Potassium 3.8, BUN 45, creatinine 2.05, hemoglobin 10.2 Objective - Vital Signs Vital signs: Vital Signs Temp 98.2 F 06/07/19 12:00 Pulse 96 06/07/19 13:00 Resp 27 H 06/07/19 13:00 BP 169/105 06/07/19 13:00 Pulse Ox 94 L 06/07/19 13:00 Intake & Output 06/06/19 06/07/19 06/07/19 18:59 06:59 18:59 Intake Total 1675 1300 1200 Output Total 695 465 215 Balance 980 835 985 Weight 70.6 kg Intake: IV 1100 1200 580 Sodium Chloride 0.9% 1, 1100 1200 580 000 ml @ 40 mls/hr IV . Q24H [facility] Rx#:[id number] Intake, IV Titration 100 100 Amount Piperacillin-Tazobactam 3 100 100 .375 gm In Sodium Chloride 0.9% 100 ml @ 25 mls/hr IVPB Q12HR [facility] Rx #:[id number] Oral 475 100 520 Output: Drainage 270 100 Right Upper Abdomen 270 100 Urine 425 365 215 Other: Voiding Method Indwelling Catheter Indwelling Catheter Indwelling Catheter - Labs CBC & Chem 7: 06/07/19 05:36 06/07/19 05:36 Labs: Abnormal Lab Results - Last 24 Hours (Table) 06/06/19 06/06/19 06/07/19 Range/Units 16:58 20:11 05:36 RBC 3.31 L (3.80-5.40) m/uL Hgb 10.2 L (11.4-16.0) gm/dL Hct 31.5 L (34.0-46.0) % RDW 16.0 H (11.5-15.5) % Lymphocytes # 0.7 L (1.0-4.8) k/uL Carbon Dioxide (22-30) mmol/L BUN (7-17) mg/dL Creatinine (0.52-1.04) mg/dL POC Glucose (mg/dL) 157 H 131 H (75-99) mg/dL Calcium (8.4-10.2) mg/dL 06/07/19 06/07/19 06/07/19 Range/Units 05:36 06:33 11:27 RBC (3.80-5.40) m/uL Hgb (11.4-16.0) gm/dL Hct (34.0-46.0) % RDW (11.5-15.5) % Lymphocytes # (1.0-4.8) k/uL Carbon Dioxide 21 L (22-30) mmol/L BUN 45 H (7-17) mg/dL Creatinine 2.05 H (0.52-1.04) mg/dL POC Glucose (mg/dL) 132 H 205 H (75-99) mg/dL Calcium 7.7 L (8.4-10.2) mg/dL Microbiology - Last 24 Hours (Table) 05/31/19 18:22 Blood Culture - Final Blood No Growth after 144 hours 05/31/19 19:03 Blood Culture - Final Blood No Growth after 144 hours
--- NOTE | 2019-06-07 16:54 | P.PN ---
Subjective Progress Note Date: 06/07/19 Principal diagnosis: Status post repair of parastomal incisional hernia/adhenolysis symptomatic bradycardia Acute renal injury 71-year-old female with a known history of chronic atrial fibrillation on metoprolol and amiodarone, was initially admitted to the hospital due to bradyca rdia. Patient is status post transvenous pacemaker placement. Currently maintaining heart rate. Patient was started back on low-dose beta blockers 06/05/2019 Patient is seen and evaluated in ICU; patient is awake and alert but somewhat confused Vital signs remained stable with pulse of 92, respiration 18 and blood pressure 106/72 with SpO2 of 99% on 2 L Labs show a white blood count of 7.7, hemoglobin of 9.2 which is an acute drop from 12.3 yesterday and platelet count of 166; sodium 135 with potassium of 3.9; B UN/creatinine of 47/2.11 trending From 35/1.87 yesterday; blood sugars remain elevated between 192 - 294 Patient with symptomatic bradycardia secondary to high dose amiodarone and metoprolol; remains in atrial fibrillation with heart rate in 90s; echoc ardiogram showing ejection fraction of 20%; transvenous pacemaker has been removed; cardiology is following and recommending to continue with low-dose metoprolol for rate control and restart Eliquis when okayed by surgery 06/06/2019 patient is postop day #3 incisional hernia repair. patient is sitting up on a chair. Ostomy is functional. No fever. No chills. patient has been started on clear liquid including popsicles. The patient does not have any abdominal distention and and she has no nausea or vomiting or emesis at this point in time. She is in atrial fibrillation and his rhythm is well-controlled for now. Her creatinine is stable at 2.2 and she is getting 0.9 mL of the rate of 100 mL an hour. White cell count is at 5.1. Hemoglobin is 9.5. The chest x-ray from today is showing some cardiomegaly and small bilateral pleural effusion lung bases bilaterally on room air oxygen. continue with incentive spirometer. She was started on Lovenox for anticoagulation regarding her atrial fibrillation and she is receiving Lovenox at a dose of 40 SWhite blood culture ubcu every 12 hours. Antibiotic coverage is still with IV Zosyn. she has nonischemic cardiomyopathy with an ejection fraction of 20%. She has diabetes hypertension hyperlipidemia. 06/07/2019 patient is postop day #4; no specific complaints. She has some gas and bowel activity in the colostomy bag Patient is advanced to full liquid diet. She remains on IV Zosyn. She remains in atrial fibrillation. She has nonischemic cardiomyopathy with an EF around 20%. She has hypertension and hyperlipidemia. She is awake and alert. She is on room air oxygen. Her A. fib is under good control. Lopressor has been restarted at a dose of 25 mg by mouth twice a day. She is very weak. She is not ambulating yet. No nausea. No vomiting. No emesis. White cell count is at 4.6 with a hemoglobin of 10.2. Creatinine is also stable at 2.05. Objective - Vital Signs Vital signs: Vital Signs Temp 98.2 F 06/07/19 12:00 Pulse 89 06/07/19 12:13 Resp 14 06/07/19 12:00 BP 146/98 06/07/19 12:00 Pulse Ox 94 L 06/07/19 12:00 Intake & Output 06/06/19 06/07/19 06/07/19 18:59 06:59 18:59 Intake Total 1675 1300 1160 Output Total 695 465 185 Balance 980 835 975 Weight 70.6 kg Intake: IV 1100 1200 540 Sodium Chloride 0.9% 1, 1100 1200 540 000 ml @ 40 mls/hr IV . Q24H [facility] Rx#:[id number] Intake, IV Titration 100 100 Amount Piperacillin-Tazobactam 3 100 100 .375 gm In Sodium Chloride 0.9% 100 ml @ 25 mls/hr IVPB Q12HR [facility] Rx #:[id number] Oral 475 100 520 Output: Drainage 270 100 Right Upper Abdomen 270 100 Urine 425 365 185 Other: Voiding Method Indwelling Catheter Indwelling Catheter Indwelling Catheter - Exam HEENT: Normocephalic. Neck is supple. Pupils reactive. Nostrils clear. Oral cavity is moist. Ears reveal no drainage. Neck reveals no JVD, carotid bruits, or thyromegaly. CHEST EXAMINATION: Trachea is central. Symmetrical expansion. Bibasilar crackles and diminished sounds. Otherwise Lung dior clear to auscultation and percussion. CARDIAC: Normal S1, S2 with no gallops. No murmurs ABDOMEN: Soft. Left-sided abdominal wall skin excoriation around the ostomy. Ostomy bag in place. Bowel sounds normal. No organomegaly. No abdominal bruits. Extremities: reveal no edema. No clubbing or cyanosis - Labs CBC & Chem 7: 06/07/19 05:36 06/07/19 05:36 Labs: Abnormal Lab Results - Last 24 Hours (Table) 06/06/19 06/06/19 06/07/19 Range/Units 16:58 20:11 05:36 RBC 3.31 L (3.80-5.40) m/uL Hgb 10.2 L (11.4-16.0) gm/dL Hct 31.5 L (34.0-46.0) % RDW 16.0 H (11.5-15.5) % Lymphocytes # 0.7 L (1.0-4.8) k/uL Carbon Dioxide (22-30) mmol/L BUN (7-17) mg/dL Creatinine (0.52-1.04) mg/dL POC Glucose (mg/dL) 157 H 131 H (75-99) mg/dL Calcium (8.4-10.2) mg/dL 06/07/19 06/07/19 06/07/19 Range/Units 05:36 06:33 11:27 RBC (3.80-5.40) m/uL Hgb (11.4-16.0) gm/dL Hct (34.0-46.0) % RDW (11.5-15.5) % Lymphocytes # (1.0-4.8) k/uL Carbon Dioxide 21 L (22-30) mmol/L BUN 45 H (7-17) mg/dL Creatinine 2.05 H (0.52-1.04) mg/dL POC Glucose (mg/dL) 132 H 205 H (75-99) mg/dL Calcium 7.7 L (8.4-10.2) mg/dL Microbiology - Last 24 Hours (Table) 05/31/19 18:22 Blood Culture - Final Blood No Growth after 144 hours 05/31/19 19:03 Blood Culture - Final Blood No Growth after 144 hours Assessment and Plan Assessment: Symptomatic bradycardia/Mobitz type II heart block. Placed on transcutaneous p acemaker initially. Successfully placed transvenous pacemaker. Heart rate improved now. Possible Left lower lobe pneumonia. Unlikely sepsis. chronic CHF with systolic dysfunction. On Lasix at home.. Chronic Persistent Atrial fibrillation. Patient was bradycardic on admission.. On anticoagulation with Eliquis. Metoprolol and amiodarone on hold Hypoglycemia likely due to insulin at home. Diabetes type 2 insulin-dependent Hypertension Hyperlipidemia Nonischemic cardiomyopathy Hypothyroidism History of colectomy and colostomy. Para stomal hernia. Status post exploratory laparotomy and repair. And colostomy revision. Inflammatory bowel disease. Plan: Patient will be continued on telemetry monitoring. Status post transvenous pacemaker placement. Metoprolol and amiodarone is on hold. Metoprolol restarted at lower dose. Cardiology is following. Continue with antibiotics for left lower lobe pneumonia in the form of Zosyn. Anticoagulation is on hold due to surgery tomorrow. Can be restarted once cleared by surgery. Gen. surgery is following..
[2019-06-07 17:04] LABS: Glucose,Whole Blood 230 mg/dL (75-99)
[2019-06-07] MEDS: CARVEDILOL 3.125 MG TAB PO SCH (17:07)
[2019-06-07] MEDS: ATORVASTATIN 10 MG TAB PO SCH (20:08)
[2019-06-07] MEDS: APIXABAN 2.5 MG TABLET PO SCH (20:08)
[2019-06-07 20:14] LABS: Glucose,Whole Blood 183 mg/dL (75-99)
[2019-06-08 05:17] LABS: Anisocytosis Slight; Hypochromasia Slight; MCH 30.6 pg (25.0-35.0); MCHC 32.3 g/dL (31.0-37.0); MCV 94.6 fL (80.0-100.0); Mean Platelet Volume 6.3; Platelet Count 181 k/uL (150-450); RBC 2.86 m/uL (3.80-5.40); WBC 5.1 k/uL (3.8-10.6)
[2019-06-08 05:25] LABS: HGB 8.7 gm/dL (11.4-16.0)
[2019-06-08 05:39] LABS: Eosinophils # (M) 0.05 k/uL (0-0.7); Lymphocytes # (M) 1.38 k/uL (1.0-4.8); Monocytes # (M) 0.31 k/uL (0-1.0); Neutrophils % (M) 66 %; Nucleated Red Blood Cells 0 /100 WBC (0-0); Total Cells Counted 100
[2019-06-08 05:40] LABS: Toxic Granulation Present
[2019-06-08 05:55] LABS: Calcium 7.5 mg/dL (8.4-10.2); Potassium 3.6 mmol/L (3.5-5.1)
[2019-06-08] MEDS ORDERED: Potassium Replacement Protocol 1 EACH MISC MISCELLANE PRN (06:17)
[2019-06-08 06:33] LABS: Glucose,Whole Blood 139 mg/dL (75-99)
[2019-06-08] MEDS: INSULIN ASPART (NovoLOG) 100 UNIT/ML VIAL SQ SCH ×4 (06:35→21:30)
[2019-06-08] MEDS: LEVOTHYROXINE 25 MCG TAB PO SCH (06:39)
[2019-06-08] MEDS: CARVEDILOL 3.125 MG TAB PO SCH ×2 (06:39→18:32)
[2019-06-08] MEDS ORDERED: POTASSIUM CHLORIDE ER 20 MEQ TAB.ER PO SCH (07:00)
[2019-06-08] MEDS: IPRATROPIUM-ALBUTEROL 3 ML NEB INHALATION SCH ×4 (07:54→20:55)
[2019-06-08] MEDS: PANTOPRAZOLE 40 MG/10 ML VIAL IV SCH (08:52)
[2019-06-08] MEDS: BALSALAZIDE DISODIUM 750 MG CAPSULE PO SCH ×2 (08:52→22:05)
[2019-06-08] MEDS: APIXABAN 2.5 MG TABLET PO SCH ×2 (08:52→21:28)
[2019-06-08] MEDS: LORATADINE 10 MG TAB PO SCH (08:53)
[2019-06-08] MEDS: CALCIUM CARB-VIT D 500MG-200UN 1 EACH TAB PO SCH (08:53)
[2019-06-08] MEDS: CALCIUM ACETATE 667 MG CAP PO SCH (08:53)
[2019-06-08] MEDS: PIPERACILLIN-TAZOBACTAM 3.375 GM in SODIUM CHLORIDE 0.9% 100 ML IVPB SCH ×2 (08:53→21:30)
[2019-06-08] MEDS: MAGNESIUM OXIDE 400 MG TAB PO SCH ×2 (08:53→21:29)
[2019-06-08 10:28] VITALS: BMI 30.4
--- NOTE | 2019-06-08 11:43 | XR ---
EXAMINATION TYPE: XR chest 1V portable DATE OF EXAM: 06/08/2019 COMPARISON: Prior chest x-ray 06/06/2019 HISTORY: Pneumonia TECHNIQUE: Single frontal view of the chest is obtained. FINDINGS: Patient is rotated and the heart remains enlarged. Bibasilar increased density persists, t here is blunting of the costophrenic angles. There is no pneumothorax. Perihilar vascular indistinctn ess is present. IMPRESSION: Findings are similar to prior exam. Correlate for congestive heart failure. Pneumonia no t excluded.
[2019-06-08 11:49] LABS: Glucose,Whole Blood 240 mg/dL (75-99)
--- NOTE | 2019-06-08 12:08 | CDI ---
poss nutritional anemia Documentation Clarification Form Date: 06/08/2019 11:58:14 AM From: Beba Boo RN, CCDS Admit Date: 05/31/2019 4:44:00 PM Patient Name: Sophia Swift Visit Number: [id number] ATTENTION: The Clinical Documentation Specialists (CDI) and [facility] Coding Staff appreciate your assistance in clarifying documentation. Please respond to the clarification below the line at the bottom and electronically sign. The CDI & [facility] Coding staff will review the response and follow-up if needed. Please note: Queries are made part of the Legal Health Record. If you have any questions, please contact the author of this message via ITS. Dr. Alejandra Gerardo declining Hgb and Hct have been noted and lacks specificity to accurately reflect your patients severity of condition and clarification is needed. History/Risk Factors: Symptomatic bradycardia with atrial fib, nonischemic cardiomyopathy, HTN, P-op day 5 exp lap w TOM and repair of parasternal hernia, partial colectomy, partial omentectomy and repair of incisional hernia, HAL Clinical indicators: Hemoglobin: 11.8/12.3/9.2/8.7 Hematocrit: 36.7/38.6/28.2/27 Treatment: Monitoring labs Eliquis 2.5 mg PO BID 4.5L IVF Boluses In order to capture the severity of condition, please clarify the type clinical significance of the declining Hgb and Hct and etiology if known: Acute blood loss anemia Acute on chronic blood loss anemia Chronic blood loss anemia Iron deficiency anemia Drug induced anemia Nutritional anemia Anemia of chronic disease Unable to determine Other, please specify (Last Revision: May 2017) MTDD
--- NOTE | 2019-06-08 13:57 | P.PN ---
Subjective Progress Note Date: 06/08/19 Principal diagnosis: Symptomatic bradycardia, status post 600 laparotomy lysis of adhesions and partial colectomy and omentectomy repair of incisional hernia postoperative day #5. Patient was reevaluated today on 06/08/2019, she is postoperative day #5. Patient seems to be doing surprisingly well, denies any cough wheezing or shortness of breath, she does have severe nonischemic cardiomyopathy, but she is basically asymptomatic. Patient had other medical problems including hypertension and hyperlipidemia, and atrial fibrillation which seems to be under good control. She is now on Lopressor at 25 mg twice a day. Labs were reviewed and basically unremarkable. Blood sugar is elevated at 240. Pulmonary-paredes the patient is asymptomatic. Objective - Vital Signs Vital signs: Vital Signs Temp 98.3 F 06/08/19 12:00 Pulse 75 06/08/19 12:00 Resp 9 L 06/08/19 12:00 BP 119/90 06/08/19 12:00 Pulse Ox 98 06/08/19 12:00 Intake & Output 06/07/19 06/08/19 06/08/19 18:59 06:59 18:59 Intake Total 2150 920 700 Output Total 910 920 284 Balance 1240 0 416 Weight 73 kg 73 kg Intake: IV 780 520 200 Sodium Chloride 0.9% 1, 780 520 200 000 ml @ 40 mls/hr IV . Q24H [facility] Rx#:[id number] Intake, IV Titration 100 100 100 Amount Piperacillin-Tazobactam 3 100 100 100 .375 gm In Sodium Chloride 0.9% 100 ml @ 25 mls/hr IVPB Q12HR [facility] Rx #:[id number] Oral 1270 300 400 Output: Drainage 325 130 80 Right Upper Abdomen 325 130 80 Urine 585 490 204 Stool 300 Other: Voiding Method Indwelling Catheter Indwelling Catheter Indwelling Catheter - Exam GENERAL EXAM: Revealed 73-year-old female pleasant in no distress. HEENT: PERRLA, EOMI, no icterus. Moist mucous membranes. Neck supple no neck masses no JVD. CHEST: No chest wall deformity. Symmetrical expansion. LUNGS: Diminished breath sounds at the bases no rhonchi and no wheezes. CVS: irregular rhythm, normal S1 and S2, no gallops, no murmurs, no rubs ABDOMEN: Soft, the surgical wound site is dry clean and intact. The patient has a new colostomy and the patient's previous colostomy site has been covered with appropriate dressing. The mid incisional site is dry clean and intact. Bowel sounds are sluggish at the present. No abdominal distention. No direct tenderness rebound tensile guarding. No ascites. No organomegaly.. The bowel sounds are hypoactive. There is positive output in the colostomy bag including gas and stool material. EXTREMITIES: No clubbing, no edema, no cyanosis, 2+ pulses and upper and lower extremities. MUSCULOSKELETAL: Muscle strength and tone normal. SPINE: No scoliosis or deformity SKIN: No rashes CENTRAL NERVOUS SYSTEM: Alert oriented 3 focal deficit.. PSYCHIATRIC: Normal mood affect and normal mental status examination - Labs CBC & Chem 7: 06/08/19 05:02 06/08/19 08:38 Labs: Abnormal Lab Results - Last 24 Hours (Table) 06/07/19 06/07/19 06/08/19 Range/Units 17:02 20:12 04:59 RBC (3.80-5.40) m/uL Hgb (11.4-16.0) gm/dL Hct (34.0-46.0) % RDW (11.5-15.5) % Chloride 110 H (98-107) mmol/L BUN 55 H (7-17) mg/dL Creatinine 1.96 H (0.52-1.04) mg/dL Glucose 57 L (74-99) mg/dL POC Glucose (mg/dL) 230 H 183 H (75-99) mg/dL Calcium 7.5 L (8.4-10.2) mg/dL 06/08/19 06/08/19 06/08/19 Range/Units 05:02 06:31 11:48 RBC 2.86 L (3.80-5.40) m/uL Hgb 8.7 L D (11.4-16.0) gm/dL Hct 27.0 L (34.0-46.0) % RDW 16.0 H (11.5-15.5) % Chloride (98-107) mmol/L BUN (7-17) mg/dL Creatinine (0.52-1.04) mg/dL Glucose (74-99) mg/dL POC Glucose (mg/dL) 139 H 240 H (75-99) mg/dL Calcium (8.4-10.2) mg/dL Assessment and Plan Assessment: Impression: Expiratory laparotomy and lysis of adhesions and repair of parastomal hernia partial colectomy omentectomy repair of incisional hernia postoperative day #5. Symptomatic bradycardia, resolved. Atrial fibrillation with controlled rate Acute kidney injury, improving. Multiple comorbidities including type 2 diabetes, hypothyroidism, inflammatory bowel disease, hypertension, hyperlipidemia, small bilateral pleural effusions, nonischemic cardiomyopathy with ejection fraction of 20% Recommendation: Patient will be transferred out of the ICU to a monitor bed on the medical floor, continue all her cardiac meds, continue incentive spirometry, we'll continue to follow. Cut down her IV fluid to KVO. Time with Patient: Less than 30
[2019-06-08] MEDS: SODIUM CHLORIDE 0.9% 1,000 ML IV SCH (14:14)
--- NOTE | 2019-06-08 14:26 | P.PN ---
Subjective Progress Note Date: 06/08/19 CHIEF COMPLAINT: abnormal ostomy HISTORY OF PRESENT ILLNESS: Patient is status post exploratory laparotomy, lysis of lesions, repair of parastomal hernia, partial colectomy, partial omentectomy, and repair of incisional hernia. Patient examined at the bedside with Dr. Quintanilla. Patient reports her abdominal pain is tolerable. Ostomy with stool noted. She is tolerating diet. PHYSICAL EXAM: VITAL SIGNS: Reviewed. GENERAL: Well-developed in no acute distress. HEENT: No sclera icterus. Extraocular movements grossly intact. Moist buccal mucosa. Head is atraumatic, normocephalic. ABDOMEN: Soft. Nontender. Ostomy to left upper quadrant with liquid stool noted. Midline dressing CDI. Dressing to left lower quadrant with small amount of serosanguineous drainage. NEUROLOGIC: Alert and oriented. Cranial nerves II through XII grossly intact. ASSESSMENT: 1. Complications of colostomy site, s/p exploratory laparotomy, lysis of lesions, repair of parastomal hernia, partial colectomy, partial omentectomy, and repair of incisional hernia PLAN: 1. Continue full liquid diet 2. Continue daily dressing changes Nurse practitioner note has been reviewed by physician. Signing provider agrees with the documented findings, assessment, and plan of care. Objective - Vital Signs Vital signs: Vital Signs Temp 98.3 F 06/08/19 12:00 Pulse 75 06/08/19 12:00 Resp 9 L 06/08/19 12:00 BP 119/90 06/08/19 12:00 Pulse Ox 98 06/08/19 12:00 Intake & Output 06/07/19 06/08/19 06/08/19 18:59 06:59 18:59 Intake Total 2150 920 700 Output Total 910 920 284 Balance 1240 0 416 Weight 73 kg 73 kg Intake: IV 780 520 200 Sodium Chloride 0.9% 1, 780 520 200 000 ml @ 40 mls/hr IV . Q24H [facility] Rx#:[id number] Intake, IV Titration 100 100 100 Amount Piperacillin-Tazobactam 3 100 100 100 .375 gm In Sodium Chloride 0.9% 100 ml @ 25 mls/hr IVPB Q12HR [facility] Rx #:[id number] Oral 1270 300 400 Output: Drainage 325 130 80 Right Upper Abdomen 325 130 80 Urine 585 490 204 Stool 300 Other: Voiding Method Indwelling Catheter Indwelling Catheter Indwelling Catheter - Labs CBC & Chem 7: 06/08/19 05:02 06/08/19 08:38 Labs: Abnormal Lab Results - Last 24 Hours (Table) 06/07/19 06/07/19 06/08/19 Range/Units 17:02 20:12 04:59 RBC (3.80-5.40) m/uL Hgb (11.4-16.0) gm/dL Hct (34.0-46.0) % RDW (11.5-15.5) % Chloride 110 H (98-107) mmol/L BUN 55 H (7-17) mg/dL Creatinine 1.96 H (0.52-1.04) mg/dL Glucose 57 L (74-99) mg/dL POC Glucose (mg/dL) 230 H 183 H (75-99) mg/dL Calcium 7.5 L (8.4-10.2) mg/dL 06/08/19 06/08/19 06/08/19 Range/Units 05:02 06:31 11:48 RBC 2.86 L (3.80-5.40) m/uL Hgb 8.7 L D (11.4-16.0) gm/dL Hct 27.0 L (34.0-46.0) % RDW 16.0 H (11.5-15.5) % Chloride (98-107) mmol/L BUN (7-17) mg/dL Creatinine (0.52-1.04) mg/dL Glucose (74-99) mg/dL POC Glucose (mg/dL) 139 H 240 H (75-99) mg/dL Calcium (8.4-10.2) mg/dL
[2019-06-08] MEDS: guaiFENesin SYRUP 100MG/5ML 200 MG/10 ML CUP PO PRN (14:29)
--- NOTE | 2019-06-08 17:07 | P.PN ---
Subjective This is Radha Ruiz PA-C dictating a progress note on this patient The patient was interviewed and examined by me as well as by Dr. Min Case discussed with Dr. Min and he agrees with the plan of care IMPRESSION / ASSESSMENT: symptomatic bradycardia secondary to high dose amiodarone and metoprolol, patient remains in A. fib with rates in the 80s post removal of transvenous pacemaker Persistent atrial fibrillation, rates in the 80s, has been restarted on eliquis nonischemic cardiomyopathy, previous echo showing EF 20% Hypertension, blood pressure stable Dyslipidemia diabetes History of bowel resection and colostomy, post op day #5 s/p exploratory laparoscopy, lysis of lesions, repair of parasternal hernia, partial colectomy, partial omentectomy, and repair of incisional hernia Dementia HAL PLAN: Continue carvedilol Continue eliquis medical management for cardiomyopathy only HPI/interval history Patient is a 73-year-old female with past medical history significant for persistent atrial fibrillation, type 2 diabetes, hypertension, dyslipidemia, nonischemic cardiomyopathy, colostomy, and dementia who presented with AMS and was admitted for treatment of sepsis. She was found to have significant sinus bradycardia and underwent a temporary transvenous pacemaker placement. During the admission, she was evaluated by surgery for her ostomy, and underwent an exploratory laparotomy and hernia repair and repair of her ostomy. She went in to atrial fibrillation after rates have been controlled. Transvenous pacemaker has been removed. Telemetry reveals her rates have been controlled overnight. Yesterday we switched her to carvedilol and her blood pressure has improved. Patient seen and examined sitting up in bed. . Denies any palpitations, dizziness, chest pain or shortness of breath. EXAMINATION Patient is afebrile, pulse 75, respirations 12, blood pressure 119/90, oxygen saturation 98% on room air Patient seen and examined resting comfortably in bed, in no acute distress Lungs are clear to auscultation bilaterally heart is irregular, no murmurs noted no elevated JVD No lower extremity edema Objective - Vital Signs Vital signs: Vital Signs Temp 98.3 F 06/08/19 12:00 Pulse 90 06/08/19 16:15 Resp 9 L 06/08/19 12:00 BP 119/90 06/08/19 12:00 Pulse Ox 98 06/08/19 12:00 Intake & Output 06/07/19 06/08/19 06/08/19 18:59 06:59 18:59 Intake Total 2150 920 820 Output Total 910 920 304 Balance 1240 0 516 Weight 73 kg 73 kg Intake: IV 780 520 200 Sodium Chloride 0.9% 1, 780 520 200 000 ml @ 40 mls/hr IV . Q24H [facility] Rx#:[id number] Intake, IV Titration 100 100 100 Amount Piperacillin-Tazobactam 3 100 100 100 .375 gm In Sodium Chloride 0.9% 100 ml @ 25 mls/hr IVPB Q12HR [facility] Rx #:[id number] Oral 1270 300 520 Output: Drainage 325 130 80 Right Upper Abdomen 325 130 80 Urine 585 490 224 Stool 300 Other: Voiding Method Indwelling Catheter Indwelling Catheter Indwelling Catheter - Labs CBC & Chem 7: 06/08/19 05:02 06/08/19 08:38 Labs: Abnormal Lab Results - Last 24 Hours (Table) 06/07/19 06/08/19 06/08/19 Range/Units 20:12 04:59 05:02 RBC 2.86 L (3.80-5.40) m/uL Hgb 8.7 L D (11.4-16.0) gm/dL Hct 27.0 L (34.0-46.0) % RDW 16.0 H (11.5-15.5) % Chloride 110 H (98-107) mmol/L BUN 55 H (7-17) mg/dL Creatinine 1.96 H (0.52-1.04) mg/dL Glucose 57 L (74-99) mg/dL POC Glucose (mg/dL) 183 H (75-99) mg/dL Calcium 7.5 L (8.4-10.2) mg/dL 06/08/19 06/08/19 Range/Units 06:31 11:48 RBC (3.80-5.40) m/uL Hgb (11.4-16.0) gm/dL Hct (34.0-46.0) % RDW (11.5-15.5) % Chloride (98-107) mmol/L BUN (7-17) mg/dL Creatinine (0.52-1.04) mg/dL Glucose (74-99) mg/dL POC Glucose (mg/dL) 139 H 240 H (75-99) mg/dL Calcium (8.4-10.2) mg/dL
[2019-06-08 17:14] LABS: Glucose,Whole Blood 154 mg/dL (75-99)
[2019-06-08 20:32] LABS: Glucose,Whole Blood 193 mg/dL (75-99)
[2019-06-08] MEDS: ATORVASTATIN 10 MG TAB PO SCH (21:29)
--- NOTE | 2019-06-09 00:13 | P.PN ---
Subjective Progress Note Date: 06/08/19 Principal diagnosis: Symptomatic bradycardia Patient is a 72-year-old female with known history of chronic atrial fibrillation on anticoagulation with Eliquis, CHF with systolic heart failure/nonischemic cardio myopathy, hypertension, hyperlipidemia, inflammatory bowel disease and hypothyroidism as well as diabetes type 2 was initially presented to [facility] with complaints of fever and also fingers turning blue. Patient had chest x-ray which showed left lower lobe pneumonia. Patient was also having lactic acidosis 2.2. Patient was given fluid bolus and started on IV antibiotics at this time. She was noted to have bradycardia and possible Mobitz type II heart block. Heart rate was in the 30s. Patient has chronic atrial fibrillation. Patient was eventually transferred to [facility] for further evaluation by cardiology. Denied any complaints of dizziness or lightheadedness while in bed. No fever no chills currently. Patient does have generalized weakness and tiredness otherwise. Patient does have chronic atrial fibrillation and was admitted to the hospital in March 2019 with rapid ventricular rate. Patient had difficulty controlling heart rate. She was initially on Cardizem drip and amiodarone drip. Patient was discharged home on amiodarone and metoprolol. Patient is also on anticoagulation with a liquids. Patient also completed 5 days of antibiotic therapy for left lower lobe pneumonia at that time. Patient was discharged to [facility] on 04/16/2019. Patient currently takes amiodarone, metoprolol. Due to significant bradycardia patient was placed on temporary pacemaker in the ER. Patient was also started on antibiotics in the form of Levaquin for possible left lower lobe pneumonia. Patient denied any complaints of abdominal pain. No nausea vomiting or diarrhea. Patient does have left abdominal wound for which she is following her surgeon. 06/01/2019 Patient is currently in the MICU. Awake alert and oriented 3. Heart rate improved to 60s now. Currently on transvenous pacemaker. Metoprolol and amiod arone on hold. Cardiology and pulmonary has seen the patient. CT of the abdominal pelvis was done to evaluate further ostomy functionality. Gen. surgery was consulted. Patient does have some stool output from the ostomy. Patient does have surrounding skin excoriation otherwise. No complains of chest pain or shortness of breath. No fever no chills. Patient is being continued on antibiotics for possible pneumonia. 06/02/2019 Patient is currently in the MICU. Currently denied any complaints of chest pain or worsening shortness of breath. Heart rate improved to 80s now. Patient is currently on transvenous pacemaker. Cardiology recommends to continue transvenous pacemaker and monitor for intrinsic conduction system recovery. Patient is having minimal stool output from the colostomy. General surgery is planning for colostomy repair and also repair of parastomal hernia. No fever no chills. No nausea no vomiting. No headache or dizziness or lightheadedness. Patient does complain of discomfort and the dominant. 06/03/2019 Patient is currently awake alert and oriented 3. Chronic atrial fibrillation and rate is controlled now. Patient is on transvenous pacemaker. General surgery is planning for ostomy revision and repair of paraostial hernia today. Patient has been afebrile. No complaints of chest pain or worsening shortness of breath. Chest x-ray showed cardiomegaly and bibasilar effusions. 06/04/2019 Patient is a 71-year-old female with a known history of chronic atrial fibrillation on metoprolol and amiodarone, was initially admitted to the hospital due to bradycardia. Patient is status post transvenous pacemaker placement. Currently maintaining heart rate. Patient was started back on low- dose beta blockers today. Cardiology is following. Patient remained in atrial fibrillation. Patient underwent exploratory laparotomy with lysis of adhesions, repair of parastomal hernia, partial colectomy and omentectomy and repair of an incisional hernia. Postoperative day 1. Patient is currently awake alert oriented 3. Tolerating oral diet. Creatinine level went up to 1.87 today from 1.56. And bicarb level is 14. Patient does have decreased urine output and IV fluid bolus 2 and it was given. Chest x-ray showed small bilateral effusions. Currently on. 2 oxygen with another cannula. Pulmonary, cardiology and general surgery is following. 06/07/2019 patient is postop day #4; no specific complaints. She has some gas and bowel activity in the colostomy bag Patient is advanced to full liquid diet. She remains on IV Zosyn. She remains in atrial fibrillation. She has nonischemic cardiomyopathy with an EF around 20%. She has hypertension and hyperlipidemia. She is awake and alert. She is on room air oxygen. Her A. fib is under good control. Lopressor has been restarted at a dose of 25 mg by mouth twice a day. She is very weak. She is not ambulating yet. No nausea. No vomiting. No emesis. White cell count is at 4.6 with a hemoglobin of 10.2. Creatinine is also stable at 2.05. 06/08/2019 Patient denied any complaints of chest pain or shortness of breath. Feels generally weak. No nausea vomiting or abdominal pain. No fever no chills. Patient is status post colostomy bag revision. Currently functioning very well. Patient was otherwise transferred to medical floor today. Heart rate is in 80s but remained in atrial fibrillation. Status post removal of transvenous pacemaker. Renal function slightly improved Patient is being continued on Coreg for rate control. Cardiology is on board. Patient be continued on oral diet and encourage ambulation and PTOT. Active Medications Albuterol/Ipratropium (Duoneb 0.5 Mg-3 Mg/3 Ml Soln) 3 ml INHALATION RT-QID [facility] Last Admin: 06/08/19 20:55 Dose: 3 ml Documented by: Albuterol/Ipratropium (Duoneb 0.5 Mg-3 Mg/3 Ml Soln) 3 ml INHALATION Q4H PRN PRN Reason: Shortness Of Breath Or Wheezing Apixaban (Eliquis) 2.5 mg PO BID [facility] Last Admin: 06/08/19 21:28 Dose: 2.5 mg Documented by: Atorvastatin Calcium (Lipitor) 10 mg PO HS [facility] Last Admin: 06/08/19 21:29 Dose: 10 mg Documented by: Balsalazide (Colazal) 1,500 mg PO BID [facility] Last Admin: 06/08/19 22:05 Dose: 1,500 mg Documented by: Calcium Acetate (Phoslo) 667 mg PO DAILY [facility] Last Admin: 06/08/19 08:53 Dose: 667 mg Documented by: Calcium Carbonate (Oscal 500+D) 1 each PO DAILY [facility] Last Admin: 06/08/19 08:53 Dose: 1 each Documented by: Carvedilol (Coreg) 3.125 mg PO BID-W/MEALS [facility] Last Admin: 06/08/19 18:32 Dose: 3.125 mg Documented by: Guaifenesin (Robitussin) 200 mg PO Q6H PRN PRN Reason: Cough Last Admin: 06/08/19 14:29 Dose: 200 mg Documented by: Hydromorphone HCl (Dilaudid) 1 mg IVP Q4HR PRN PRN Reason: Pain Last Admin: 06/06/19 08:57 Dose: 1 mg Documented by: Sodium Chloride (Saline 0.9%) 1,000 mls @ 40 mls/hr IV .Q24H [facility] Last Admin: 06/08/19 14:14 Dose: Not Given Documented by: Piperacillin Sod/Tazobactam (Sod 3.375 gm/ Sodium Chloride) 100 mls @ 25 mls/hr IVPB Q12HR [facility] Last Admin: 06/08/19 21:30 Dose: 25 mls/hr Documented by: Insulin Aspart (Novolog) 0 unit SQ ACHS [facility]; Protocol Last Admin: 06/08/19 21:30 Dose: 2 unit Documented by: Levothyroxine Sodium (Synthroid) 25 mcg PO 0630 [facility] Last Admin: 06/08/19 06:39 Dose: 25 mcg Documented by: Loratadine (Claritin) 10 mg PO DAILY [facility] Last Admin: 06/08/19 08:53 Dose: 10 mg Documented by: Magnesium Oxide (Mag-Ox) 400 mg PO BID [facility] Last Admin: 06/08/19 21:29 Dose: 400 mg Documented by: Metoclopramide HCl (Reglan) 10 mg IVP Q6HR PRN PRN Reason: Nausea Last Admin: 06/04/19 22:39 Dose: 10 mg Documented by: Miscellaneous Information (Pneumonia Protocol Utilized) 1 each PO ONCE PRN PRN Reason: Per Protocol Miscellaneous Information (Potassium Per Protocol) 1 each MISCELLANE DAILY PRN; Protocol PRN Reason: Per Protocol Multivitamins (Theragran) 1 each PO DAILY [facility] Last Admin: 06/07/19 08:40 Dose: 1 each Documented by: Ondansetron HCl (Zofran) 4 mg IVP Q6HR PRN PRN Reason: Nausea And Vomiting Last Admin: 06/06/19 18:32 Dose: 4 mg Documented by: Pantoprazole Sodium (Protonix) 40 mg IV DAILY [facility] Last Admin: 06/08/19 08:52 Dose: 40 mg Documented by: Objective - Vital Signs Vital signs: Vital Signs Temp 98.3 F 06/08/19 12:00 Pulse 90 06/08/19 16:15 Resp 9 L 06/08/19 12:00 BP 119/90 06/08/19 12:00 Pulse Ox 98 06/08/19 12:00 Intake & Output 06/07/19 06/08/19 06/08/19 18:59 06:59 18:59 Intake Total 2150 920 820 Output Total 910 920 304 Balance 1240 0 516 Weight 73 kg 73 kg Intake: IV 780 520 200 Sodium Chloride 0.9% 1, 780 520 200 000 ml @ 40 mls/hr IV . Q24H [facility] Rx#:[id number] Intake, IV Titration 100 100 100 Amount Piperacillin-Tazobactam 3 100 100 100 .375 gm In Sodium Chloride 0.9% 100 ml @ 25 mls/hr IVPB Q12HR [facility] Rx #:[id number] Oral 1270 300 520 Output: Drainage 325 130 80 Right Upper Abdomen 325 130 80 Urine 585 490 224 Stool 300 Other: Voiding Method Indwelling Catheter Indwelling Catheter Indwelling Catheter - Exam PHYSICAL EXAMINATION: Patient is lying in the bed comfortably, no acute distress, awake alert and oriented.. HEENT: Normocephalic. Neck is supple. Pupils reactive. Nostrils clear. Oral cavity is moist. Ears reveal no drainage. Neck reveals no JVD, carotid bruits, or thyromegaly. CHEST EXAMINATION: Trachea is central. Symmetrical expansion. Bibasilar crackles and diminished sounds. Otherwise Lung dior clear to auscultation and percussion. CARDIAC: Normal S1, S2 with no gallops. No murmurs ABDOMEN: Soft. Left-sided abdominal wall skin excoriation around the ostomy. Ostomy bag in place. Bowel sounds normal. No organomegaly. No abdominal bruits. Extremities: reveal no edema. No clubbing or cyanosis Neurologically awake, alert, oriented x3 with well-coordinated movements. No focal deficits noted Skin: No rash or skin lesions. Psychiatric: Coperative. Nonsuicidal Musculoskeletal: No joint swelling or deformity. Normal range of motion. - Labs CBC & Chem 7: 06/08/19 05:02 06/08/19 08:38 Labs: Abnormal Lab Results - Last 24 Hours (Table) 06/07/19 06/07/19 06/08/19 Range/Units 17:02 20:12 04:59 RBC (3.80-5.40) m/uL Hgb (11.4-16.0) gm/dL Hct (34.0-46.0) % RDW (11.5-15.5) % Chloride 110 H (98-107) mmol/L BUN 55 H (7-17) mg/dL Creatinine 1.96 H (0.52-1.04) mg/dL Glucose 57 L (74-99) mg/dL POC Glucose (mg/dL) 230 H 183 H (75-99) mg/dL Calcium 7.5 L (8.4-10.2) mg/dL 06/08/19 06/08/19 06/08/19 Range/Units 05:02 06:31 11:48 RBC 2.86 L (3.80-5.40) m/uL Hgb 8.7 L D (11.4-16.0) gm/dL Hct 27.0 L (34.0-46.0) % RDW 16.0 H (11.5-15.5) % Chloride (98-107) mmol/L BUN (7-17) mg/dL Creatinine (0.52-1.04) mg/dL Glucose (74-99) mg/dL POC Glucose (mg/dL) 139 H 240 H (75-99) mg/dL Calcium (8.4-10.2) mg/dL Assessment and Plan Assessment: Symptomatic bradycardia/Mobitz type II heart block. Likely due to high doses of amiodarone and metoprolol. Transvenous pacemaker was removed. Currently patient is on Coreg 3.125 mg twice daily. Heart rate is currently in 80s.. Possible Left lower lobe pneumonia. Unlikely sepsis. chronic CHF with systolic dysfunction. On Lasix at home.. Chronic Persistent Atrial fibrillation. Patient was bradycardic on admission.. On anticoagulation with Eliquis. Metoprolol and amiodarone on hold Hypoglycemia likely due to insulin at home. Diabetes type 2 insulin-dependent Hypertension Hyperlipidemia Nonischemic cardiomyopathy Hypothyroidism History of colectomy and colostomy. Para stomal hernia. Status post exploratory laparotomy and repair. And colostomy revision. Inflammatory bowel disease. Plan: Patient will be continued on telemetry monitoring. Status post transvenous pacemaker placement and removal. Metoprolol and amiodarone is on hold. Currently on Coreg. Cardiology is following. Continue with antibiotics for left lower lobe pneumonia in the form of Zosyn. Anticoagulation is on hold due to surgery and was restarted. Continue to follow closely and insulin sliding scale. Further recommendations based on the clinical course. Encourage ambulation and PT OT. Prognosis is guarded. Time with Patient: Greater than 30
[2019-06-09] MEDS: HYDROmorphone 1 MG/ML 1 ML SYRINGE IVP PRN (03:56)
[2019-06-09] MEDS: LEVOTHYROXINE 25 MCG TAB PO SCH (05:04)
[2019-06-09 07:09] LABS: Glucose,Whole Blood 92 mg/dL (75-99)
[2019-06-09] MEDS: IPRATROPIUM-ALBUTEROL 3 ML NEB INHALATION SCH (07:10)
[2019-06-09] MEDS: INSULIN ASPART (NovoLOG) 100 UNIT/ML VIAL SQ SCH ×4 (07:53→21:33)
[2019-06-09] MEDS: CARVEDILOL 3.125 MG TAB PO SCH ×2 (08:27→17:19)
[2019-06-09] MEDS: APIXABAN 2.5 MG TABLET PO SCH ×2 (10:47→21:33)
[2019-06-09] MEDS: BALSALAZIDE DISODIUM 750 MG CAPSULE PO SCH ×2 (10:47→21:33)
[2019-06-09] MEDS: CALCIUM ACETATE 667 MG CAP PO SCH (10:48)
[2019-06-09] MEDS: CALCIUM CARB-VIT D 500MG-200UN 1 EACH TAB PO SCH (10:49)
[2019-06-09] MEDS: LORATADINE 10 MG TAB PO SCH (10:49)
[2019-06-09] MEDS: MULTIVITAMINS, THERA 1 EACH TAB PO SCH (10:50)
[2019-06-09] MEDS: MAGNESIUM OXIDE 400 MG TAB PO SCH ×2 (10:50→21:33)
[2019-06-09] MEDS: PANTOPRAZOLE 40 MG/10 ML VIAL IV SCH (10:50)
[2019-06-09] MEDS: PIPERACILLIN-TAZOBACTAM 3.375 GM in SODIUM CHLORIDE 0.9% 100 ML IVPB SCH ×2 (10:52→21:33)
[2019-06-09 11:11] LABS: Glucose,Whole Blood 199 mg/dL (75-99)
--- NOTE | 2019-06-09 11:50 | P.PN ---
Subjective Progress Note Date: 06/09/19 Principal diagnosis: Symptomatic bradycardia, status post exploratory laparotomy, lysis of adhesions and partial colectomy and omentectomy and repair of incisional hernia, postoper ative day #6. The patient is seen today 06/09/2019 in follow-up on the regular medical floor. She is currently sitting up in bed. Awake and alert in no acute distress. Denies any shortness of breath, cough or congestion. Maintaining O2 saturation in the 90s on room air. She is afebrile. Blood cultures reveal no growth. She remains on Zosyn. Anticoagulated with Eliquis. Objective - Vital Signs Vital signs: Vital Signs Temp 98.3 F 06/09/19 08:42 Pulse 82 06/09/19 08:42 Resp 18 06/09/19 08:42 BP 134/78 06/09/19 08:42 Pulse Ox 94 L 06/09/19 08:42 Intake & Output 06/08/19 06/09/19 06/09/19 18:59 06:59 18:59 Intake Total 1540 1400 Output Total 404 3150 125 Balance 1136 -1750 -125 Weight 73 kg Intake: IV 200 160 Sodium Chloride 0.9% 1, 200 160 000 ml @ 40 mls/hr IV . Q24H [facility] Rx#:[id number] Intake, IV Titration 100 340 Amount Piperacillin-Tazobactam 3 100 100 .375 gm In Sodium Chloride 0.9% 100 ml @ 25 mls/hr IVPB Q12HR [facility] Rx #:[id number] Sodium Chloride 0.9% 1, 240 000 ml @ 40 mls/hr IV . Q24H [facility] Rx#:[id number] Oral 1240 900 Output: Drainage 80 2200 95 Right Upper Abdomen 80 2200 95 Urine 224 850 Stool 100 100 30 Other: Voiding Method Indwelling Catheter Indwelling Catheter - Exam GENERAL EXAM: Pleasant 73-year-old female patient, in no distress. On room air. HEENT: PERRLA, EOMI, no icterus. Moist mucous membranes. Neck supple no neck masses no JVD. CHEST: No chest wall deformity. Symmetrical expansion. LUNGS: Diminished breath sounds at the bases no rhonchi and no wheezes. CVS: irregular rhythm, normal S1 and S2, no gallops, no murmurs, no rubs ABDOMEN: Soft, the surgical wound site is dry clean and intact. The patient has a new colostomy and the patient's previous colostomy site has been covered with appropriate dressing. The mid incisional site is dry clean and intact. Bowel sounds are present. No abdominal distention. No direct tenderness rebound tensile guarding. No ascites. No organomegaly.. The bowel sounds are hypoactive. There is positive output in the colostomy bag including gas and stool material. EXTREMITIES: No clubbing, no edema, no cyanosis, 2+ pulses and upper and lower extremities. MUSCULOSKELETAL: Muscle strength and tone normal. SPINE: No scoliosis or deformity SKIN: No rashes CENTRAL NERVOUS SYSTEM: Alert oriented 3 focal deficit.. PSYCHIATRIC: Normal mood affect and normal mental status examination - Labs CBC & Chem 7: 06/08/19 05:02 06/08/19 08:38 Labs: Abnormal Lab Results - Last 24 Hours (Table) 06/08/19 06/08/19 06/08/19 Range/Units 11:48 17:13 20:31 POC Glucose (mg/dL) 240 H 154 H 193 H (75-99) mg/dL 06/09/19 Range/Units 11:09 POC Glucose (mg/dL) 199 H (75-99) mg/dL Assessment and Plan Assessment: Impression: Exploratory laparotomy and lysis of adhesions and repair of parastomal hernia partial colectomy omentectomy repair of incisional hernia postoperative day #6. Symptomatic bradycardia, resolved. Atrial fibrillation with controlled rate Acute kidney injury, improving. Multiple comorbidities including type 2 diabetes, hypothyroidism, inflammatory bowel disease, hypertension, hyperlipidemia, small bilateral pleural effusions, nonischemic cardiomyopathy with ejection fraction of 20%. Plan: The patient was seen and evaluated by Dr. Portillo. She is currently stable from the pulmonary and critical care standpoint. Encourage increased use the incentive spirometer and cough and deep breathing exercises. Increase her activity as tolerated. Continue with physical therapy. We'll continue to follow make further recommendations based on her clinical status. I, the cosigning physician, performed a history & physical examination of the patient. Lungs sounds are clear. Maintaining good O2 saturations in the 90s on room air. I discussed the assessment and plan of care with my nurse practitioner, Lisha Strickland. I attest to the above note as dictated by her.
--- NOTE | 2019-06-09 15:24 | P.PN ---
Subjective Progress Note Date: 06/09/19 CHIEF COMPLAINT: abnormal ostomy HISTORY OF PRESENT ILLNESS: Patient is status post exploratory laparotomy, lysis of lesions, repair of parastomal hernia, partial colectomy, partial omentectomy, and repair of incisional hernia. Patient examined at the bedside with Dr. Quintanilla. Patient reports her abdominal pain is tolerable. Ostomy with stool noted. She is tolerating diet. PHYSICAL EXAM: VITAL SIGNS: Reviewed. GENERAL: Well-developed in no acute distress. HEENT: No sclera icterus. Extraocular movements grossly intact. Moist buccal mucosa. Head is atraumatic, normocephalic. ABDOMEN: Soft. Nontender. Ostomy to left upper quadrant with liquid stool noted. Midline dressing CDI. Dressing to left lower quadrant with small amount of serosanguineous drainage. NEUROLOGIC: Alert and oriented. Cranial nerves II through XII grossly intact. ASSESSMENT: 1. Complications of colostomy site, s/p exploratory laparotomy, lysis of lesions, repair of parastomal hernia, partial colectomy, partial omentectomy, and repair of incisional hernia PLAN: Advance diet Stable for discharge from a general surgery standpoint when cleared by medicine Patient to follow up outpatient with Dr. Quintanilla Nurse practitioner note has been reviewed by physician. Signing provider agrees with the documented findings, assessment, and plan of care. Objective - Vital Signs Vital signs: Vital Signs Temp 97.3 F L 06/09/19 11:50 Pulse 90 06/09/19 11:50 Resp 16 06/09/19 11:50 BP 129/78 06/09/19 11:50 Pulse Ox 97 06/09/19 11:50 Intake & Output 06/08/19 06/09/19 06/09/19 18:59 06:59 18:59 Intake Total 1540 1400 1020 Output Total 404 3150 205 Balance 1136 -1750 815 Weight 73 kg Intake: IV 200 160 320 Sodium Chloride 0.9% 1, 200 160 320 000 ml @ 40 mls/hr IV . Q24H [facility] Rx#:[id number] Intake, IV Titration 100 340 100 Amount Piperacillin-Tazobactam 3 100 100 100 .375 gm In Sodium Chloride 0.9% 100 ml @ 25 mls/hr IVPB Q12HR [facility] Rx #:[id number] Sodium Chloride 0.9% 1, 240 000 ml @ 40 mls/hr IV . Q24H [facility] Rx#:[id number] Oral 1240 900 600 Output: Drainage 80 2200 175 Right Upper Abdomen 80 2200 175 Urine 224 850 Stool 100 100 30 Other: Voiding Method Indwelling Catheter Indwelling Catheter Indwelling Catheter - Labs CBC & Chem 7: 06/08/19 05:02 06/08/19 08:38 Labs: Abnormal Lab Results - Last 24 Hours (Table) 06/08/19 06/08/19 06/09/19 Range/Units 17:13 20:31 11:09 POC Glucose (mg/dL) 154 H 193 H 199 H (75-99) mg/dL
[2019-06-09 17:16] LABS: Glucose,Whole Blood 259 mg/dL (75-99)
[2019-06-09] MEDS: SODIUM CHLORIDE 0.9% 1,000 ML IV SCH (17:16)
[2019-06-09 20:01] LABS: Glucose,Whole Blood 197 mg/dL (75-99)
[2019-06-09] MEDS: ATORVASTATIN 10 MG TAB PO SCH (21:33)
[2019-06-10] MEDS: HYDROmorphone 1 MG/ML 1 ML SYRINGE IVP PRN (04:24)
[2019-06-10] MEDS: LEVOTHYROXINE 25 MCG TAB PO SCH (05:40)
[2019-06-10 07:10] LABS: Glucose,Whole Blood 117 mg/dL (75-99)
[2019-06-10 07:52] VITALS: RESP 20
[2019-06-10] MEDS: INSULIN ASPART (NovoLOG) 100 UNIT/ML VIAL SQ SCH ×3 (08:57→17:24)
[2019-06-10] MEDS: PIPERACILLIN-TAZOBACTAM 3.375 GM in SODIUM CHLORIDE 0.9% 100 ML IVPB SCH (09:12)
[2019-06-10] MEDS: guaiFENesin SYRUP 100MG/5ML 200 MG/10 ML CUP PO PRN (09:13)
[2019-06-10] MEDS: APIXABAN 2.5 MG TABLET PO SCH (09:14)
[2019-06-10] MEDS: LORATADINE 10 MG TAB PO SCH (09:14)
[2019-06-10] MEDS: CALCIUM CARB-VIT D 500MG-200UN 1 EACH TAB PO SCH (09:14)
[2019-06-10] MEDS: CALCIUM ACETATE 667 MG CAP PO SCH (09:14)
[2019-06-10] MEDS: MAGNESIUM OXIDE 400 MG TAB PO SCH (09:14)
[2019-06-10] MEDS: BALSALAZIDE DISODIUM 750 MG CAPSULE PO SCH (09:14)
[2019-06-10] MEDS: CARVEDILOL 3.125 MG TAB PO SCH ×2 (09:14→17:08)
[2019-06-10] MEDS: MULTIVITAMINS, THERA 1 EACH TAB PO SCH (09:14)
[2019-06-10] MEDS: PANTOPRAZOLE 40 MG/10 ML VIAL IV SCH (09:24)
[2019-06-10 11:12] LABS: Glucose,Whole Blood 233 mg/dL (75-99)
[2019-06-10 11:17] LABS: Calcium 7.6 mg/dL (8.4-10.2); Potassium 4.4 mmol/L (3.5-5.1)
[2019-06-10 11:26] LABS: Anisocytosis Slight; HCT 33.8 % (34.0-46.0); HGB 10.8 gm/dL (11.4-16.0); Hypochromasia Slight; MCH 30.1 pg (25.0-35.0); MCHC 31.9 g/dL (31.0-37.0); MCV 94.1 fL (80.0-100.0); Mean Platelet Volume 6.6; Platelet Count 210 k/uL (150-450); RBC 3.59 m/uL (3.80-5.40); RDW 16.2 % (11.5-15.5); WBC 5.9 k/uL (3.8-10.6)
[2019-06-10 11:59] LABS: Band Neutrophils % 1 %; Eosinophils # (M) 0.24 k/uL (0-0.7); Lymphocytes # (M) 1.24 k/uL (1.0-4.8); Monocytes # (M) 0.12 k/uL (0-1.0); Neutrophils % (M) 72 %; Nucleated Red Blood Cells 0 /100 WBC (0-0); Total Cells Counted 100
[2019-06-10 12:00] LABS: Poikilocytosis (M) Present
--- NOTE | 2019-06-10 12:40 | P.DS ---
Providers Date of admission: 05/31/19 16:44 Expected date of discharge: 06/10/19 Attending physician: Naun Colón Consults: 05/31/19 16:44 Consult Physician Stat Consulting Provider: David Hu Consult Reason/Comments: Symptomatic bradycardia Do you want consulting provider notified?: Already Contacted Consult Physician Stat Consulting Provider: Omer Lester Consult Reason/Comments: Pneumonia, sepsis, ICU management Do you want consulting provider notified?: Already Contacted 06/01/19 09:50 Consult Physician Routine Consulting Provider: Cedric Quintanilla Consult Reason/Comments: abnormal ostomy Do you want consulting provider notified?: Yes 06/02/19 09:06 Consult Physician Routine Consulting Provider: Urbano Viveros Consult Reason/Comments: possible shoulder dislocation Do you want consulting provider notified?: Yes Primary care physician: Adolfo Wang Hospital Course: Final diagnosis Symptomatic bradycardia/Mobitz type II heart block. Transvenous pacemaker was removed. Possible Left lower lobe pneumonia. chronic CHF with systolic dysfunction. Chronic Persistent Atrial fibrillation. Hypoglycemia Diabetes type 2 insulin-dependent Hypertension Hyperlipidemia Nonischemic cardiomyopathy Hypothyroidism History of colectomy and colostomy. Para stomal hernia. Status post exploratory laparotomy and repair. And colostomy revision. Inflammatory bowel disease. Discharge disposition Patient is being discharged in stable condition with guarded prognosis to [facility], [place] she is a resident there. She will continue with a short course of oral antibiotics in the form of Augmentin twice daily for the next 3 days. Patient will follow-up with primary care provider upon discharge. Total time taken is 35 minutes. History of present illness This is a 73-year-old female who was recently admitted with complaints of fever and left lower lobe pneumonia and was being closely monitored. Cardiology is following as well surgery. During hospitalization patient continue to have bradycardia and was placed on a temper a pacemaker and was placed in the MICU and was being closely monitored. During hospitalization patient underwent t ransvenous pacemaker placement and currently maintaining her rate. Patient was seen by surgery and underwent exploratory laparotomy with lysis of adhesions, repair of parastomal hernia, partial colectomy, and omentectomy, and repair of an incisional hernia. Currently patient's condition is stable with much improvement and will be discharged today to [facility] [place]. Patient will need repeat labs in 2-3 days. Patient denies any chest pain, shortness of breath, or palpitations at this time. Patient is afebrile. Patient denies any nausea or vomiting and is tolerating diet. Colostomy instructions have been written on the discharge instructions. Patient is to continue using the incentive spirometer at least 10 times every hour while awake along with coughing and deep breathing exercises. Patient is continue with PT/OT and increase activity as tolerated. Guarded prognosis. On exam vital signs are stable. Temp is 98.5F, pulse is 84, respirations are 18, blood pressure is 130/93, oxygen saturation is 98% on room air. Cardio S1 and S2 are muffled. Respiratory system shows diminished breath sounds at the bases otherwise clear to auscultation. Abdomen is soft and non-tender with colostomy bag present surgical wound site is dry and intact. Nervous system shows no focal deficits with moderate diffuse weakness. Please refer to medication reconciliation sheet for a list of medications. Health Concerns: Colostomy Care recommendations for Transition to Home/Rehab: Last date of Appliance Change: 06.05.2019 Mrs Swift is being sent to [facility] with the following supplies for [facility][id number] (three form [facility] provided) Convate pouching system #[id number] with filter (three [facility] provided) No sting prep pads (10 [facility]) Osotmy Powder (one from hospital) Skin breakdown below new ostomy stoma: Foam to these areas daily Patient Condition at Discharge: Fair Plan - Discharge Summary Discharge Rx Participant: No New Discharge Prescriptions: New Carvedilol [Coreg] 3.125 mg PO BID-W/MEALS #60 tab Amoxicillin/Potassium Clav [Augmentin 875-125 Tablet] 1 tab PO BID 3 Days #6 tab Continue Multivitamins, Thera [Multivitamin (formulary)] 1 tab PO DAILY Atorvastatin [Lipitor] 10 mg PO HS Calcium Carbonate/Vitamin D3 [Calcium 600-Vit D3 400 Tablet] 1 tab PO DAILY Magnesium Oxide [Mag-Ox] 400 mg PO BID Levothyroxine Sodium [Synthroid] 25 mcg PO DAILY Calcium Acetate [PhosLo] 667 mg PO DAILY Loratadine 10 mg PO DAILY INSULIN LISPRO (humaLOG) [humaLOG] See Protocol SQ DIRECTED Insulin Glargine [Lantus] 14 unit SQ HS Apixaban [Eliquis] 2.5 mg PO BID Mesalamine [Delzicol] 400 mg PO BID Discontinued Lisinopril [Zestril] 5 mg PO DAILY #30 tablet Amiodarone [Cordarone] 200 mg PO TID #30 tab Metoprolol Tartrate [Lopressor] 25 mg PO TID Discharge Medication List Atorvastatin [Lipitor] 10 mg PO HS 06/03/18 [History] Calcium Acetate [PhosLo] 667 mg PO DAILY 06/03/18 [History] Calcium Carbonate/Vitamin D3 [Calcium 600-Vit D3 400 Tablet] 1 tab PO DAILY 06/03/18 [History] Levothyroxine Sodium [Synthroid] 25 mcg PO DAILY 06/03/18 [History] Magnesium Oxide [Mag-Ox] 400 mg PO BID 06/03/18 [History] Multivitamins, Thera [Multivitamin (formulary)] 1 tab PO DAILY 06/03/18 [History] Loratadine 10 mg PO DAILY 03/31/19 [History] INSULIN LISPRO (humaLOG) [humaLOG] See Protocol SQ DIRECTED 04/11/19 [History] Apixaban [Eliquis] 2.5 mg PO BID 05/31/19 [History] Insulin Glargine [Lantus] 14 unit SQ HS 05/31/19 [History] Mesalamine [Delzicol] 400 mg PO BID 05/31/19 [History] Carvedilol [Coreg] 3.125 mg PO BID-W/MEALS #60 tab 06/09/19 [Rx] Amoxicillin/Potassium Clav [Augmentin 875-125 Tablet] 1 tab PO BID 3 Days #6 tab 06/10/19 [Rx] Follow up Appointment(s)/Referral(s): Adolfo Wang MD [Primary Care Provider] - 1-2 days Cedric Quintanilla MD [STAFF PHYSICIAN] - 1 Week Ambulatory/Diagnostic Orders: Basic Metabolic Panel [LAB.AMB] Time Frame: 2 Days, Location: None Selected Complete Blood Count w/diff [LAB.AMB] Time Frame: 2 Days, Location: None Selected Activity/Diet/Wound Care/Special Instructions: Activity as tolerated Continue current diet Complete full course of antibiotics Follow-up with primary care provider upon discharge Repeat labs in 2-3 days Discharge Disposition: TRANSFER TO SNF/ECF
[2019-06-10 12:42] VITALS: BP 131/96; PULSE 90; TEMP 97.9
[2019-06-10] MEDS: SODIUM CHLORIDE 0.9% 1,000 ML IV SCH (13:38)
[2019-06-10 17:12] LABS: Glucose,Whole Blood 278 mg/dL (75-99)
--- NOTE | 2019-06-12 23:11 | P.PN ---
Subjective Progress Note Date: 06/09/19 Principal diagnosis: Symptomatic bradycardia Patient is a 72-year-old female with known history of chronic atrial fibrillation on anticoagulation with Eliquis, CHF with systolic heart failure/nonischemic cardio myopathy, hypertension, hyperlipidemia, inflammatory bowel disease and hypothyroidism as well as diabetes type 2 was initially presented to [facility] with complaints of fever and also fingers turning blue. Patient had chest x-ray which showed left lower lobe pneumonia. Patient was also having lactic acidosis 2.2. Patient was given fluid bolus and started on IV antibiotics at this time. She was noted to have bradycardia and possible Mobitz type II heart block. Heart rate was in the 30s. Patient has chronic atrial fibrillation. Patient was eventually transferred to [facility] for further evaluation by cardiology. Denied any complaints of dizziness or lightheadedness while in bed. No fever no chills currently. Patient does have generalized weakness and tiredness otherwise. Patient does have chronic atrial fibrillation and was admitted to the hospital in March 2019 with rapid ventricular rate. Patient had difficulty controlling heart rate. She was initially on Cardizem drip and amiodarone drip. Patient was discharged home on amiodarone and metoprolol. Patient is also on anticoagulation with a liquids. Patient also completed 5 days of antibiotic therapy for left lower lobe pneumonia at that time. Patient was discharged to [facility] on 04/16/2019. Patient currently takes amiodarone, metoprolol. Due to significant bradycardia patient was placed on temporary pacemaker in the ER. Patient was also started on antibiotics in the form of Levaquin for possible left lower lobe pneumonia. Patient denied any complaints of abdominal pain. No nausea vomiting or diarrhea. Patient does have left abdominal wound for which she is following her surgeon. 06/01/2019 Patient is currently in the MICU. Awake alert and oriented 3. Heart rate improved to 60s now. Currently on transvenous pacemaker. Metoprolol and amiod arone on hold. Cardiology and pulmonary has seen the patient. CT of the abdominal pelvis was done to evaluate further ostomy functionality. Gen. surgery was consulted. Patient does have some stool output from the ostomy. Patient does have surrounding skin excoriation otherwise. No complains of chest pain or shortness of breath. No fever no chills. Patient is being continued on antibiotics for possible pneumonia. 06/02/2019 Patient is currently in the MICU. Currently denied any complaints of chest pain or worsening shortness of breath. Heart rate improved to 80s now. Patient is currently on transvenous pacemaker. Cardiology recommends to continue transvenous pacemaker and monitor for intrinsic conduction system recovery. Patient is having minimal stool output from the colostomy. General surgery is planning for colostomy repair and also repair of parastomal hernia. No fever no chills. No nausea no vomiting. No headache or dizziness or lightheadedness. Patient does complain of discomfort and the dominant. 06/03/2019 Patient is currently awake alert and oriented 3. Chronic atrial fibrillation and rate is controlled now. Patient is on transvenous pacemaker. General surgery is planning for ostomy revision and repair of paraostial hernia today. Patient has been afebrile. No complaints of chest pain or worsening shortness of breath. Chest x-ray showed cardiomegaly and bibasilar effusions. 06/04/2019 Patient is a 71-year-old female with a known history of chronic atrial fibrillation on metoprolol and amiodarone, was initially admitted to the hospital due to bradycardia. Patient is status post transvenous pacemaker placement. Currently maintaining heart rate. Patient was started back on low- dose beta blockers today. Cardiology is following. Patient remained in atrial fibrillation. Patient underwent exploratory laparotomy with lysis of adhesions, repair of parastomal hernia, partial colectomy and omentectomy and repair of an incisional hernia. Postoperative day 1. Patient is currently awake alert oriented 3. Tolerating oral diet. Creatinine level went up to 1.87 today from 1.56. And bicarb level is 14. Patient does have decreased urine output and IV fluid bolus 2 and it was given. Chest x-ray showed small bilateral effusions. Currently on. 2 oxygen with another cannula. Pulmonary, cardiology and general surgery is following. 06/07/2019 patient is postop day #4; no specific complaints. She has some gas and bowel activity in the colostomy bag Patient is advanced to full liquid diet. She remains on IV Zosyn. She remains in atrial fibrillation. She has nonischemic cardiomyopathy with an EF around 20%. She has hypertension and hyperlipidemia. She is awake and alert. She is on room air oxygen. Her A. fib is under good control. Lopressor has been restarted at a dose of 25 mg by mouth twice a day. She is very weak. She is not ambulating yet. No nausea. No vomiting. No emesis. White cell count is at 4.6 with a hemoglobin of 10.2. Creatinine is also stable at 2.05. 06/08/2019 Patient denied any complaints of chest pain or shortness of breath. Feels generally weak. No nausea vomiting or abdominal pain. No fever no chills. Patient is status post colostomy bag revision. Currently functioning very well. Patient was otherwise transferred to medical floor today. Heart rate is in 80s but remained in atrial fibrillation. Status post removal of transvenous pacemaker. Renal function slightly improved Patient is being continued on Coreg for rate control. Cardiology is on board. Patient be continued on oral diet and encourage ambulation and PTOT. 06/09/2019 Patient denied any complaints of chest pain or shortness of breath. Feels better. Ostomy is functioning. Heart rate is better controlled. Renal function is improving. Aspirin discharged to rehab in the next 24 hours. Active Medications Albuterol/Ipratropium (Duoneb 0.5 Mg-3 Mg/3 Ml Soln) 3 ml INHALATION RT-QID [facility] Last Admin: 06/08/19 20:55 Dose: 3 ml Documented by: Albuterol/Ipratropium (Duoneb 0.5 Mg-3 Mg/3 Ml Soln) 3 ml INHALATION Q4H PRN PRN Reason: Shortness Of Breath Or Wheezing Apixaban (Eliquis) 2.5 mg PO BID [facility] Last Admin: 06/08/19 21:28 Dose: 2.5 mg Documented by: Atorvastatin Calcium (Lipitor) 10 mg PO HS [facility] Last Admin: 06/08/19 21:29 Dose: 10 mg Documented by: Balsalazide (Colazal) 1,500 mg PO BID [facility] Last Admin: 06/08/19 22:05 Dose: 1,500 mg Documented by: Calcium Acetate (Phoslo) 667 mg PO DAILY [facility] Last Admin: 06/08/19 08:53 Dose: 667 mg Documented by: Calcium Carbonate (Oscal 500+D) 1 each PO DAILY [facility] Last Admin: 06/08/19 08:53 Dose: 1 each Documented by: Carvedilol (Coreg) 3.125 mg PO BID-W/MEALS [facility] Last Admin: 06/08/19 18:32 Dose: 3.125 mg Documented by: Guaifenesin (Robitussin) 200 mg PO Q6H PRN PRN Reason: Cough Last Admin: 06/08/19 14:29 Dose: 200 mg Documented by: Hydromorphone HCl (Dilaudid) 1 mg IVP Q4HR PRN PRN Reason: Pain Last Admin: 06/06/19 08:57 Dose: 1 mg Documented by: Sodium Chloride (Saline 0.9%) 1,000 mls @ 40 mls/hr IV .Q24H ISABEL Last Admin: 06/08/19 14:14 Dose: Not Given Documented by: Piperacillin Sod/Tazobactam (Sod 3.375 gm/ Sodium Chloride) 100 mls @ 25 mls/hr IVPB Q12HR [facility] Last Admin: 06/08/19 21:30 Dose: 25 mls/hr Documented by: Insulin Aspart (Novolog) 0 unit SQ ACHS [facility]; Protocol Last Admin: 06/08/19 21:30 Dose: 2 unit Documented by: Levothyroxine Sodium (Synthroid) 25 mcg PO 0630 [facility] Last Admin: 06/08/19 06:39 Dose: 25 mcg Documented by: Loratadine (Claritin) 10 mg PO DAILY [facility] Last Admin: 06/08/19 08:53 Dose: 10 mg Documented by: Magnesium Oxide (Mag-Ox) 400 mg PO BID [facility] Last Admin: 06/08/19 21:29 Dose: 400 mg Documented by: Metoclopramide HCl (Reglan) 10 mg IVP Q6HR PRN PRN Reason: Nausea Last Admin: 06/04/19 22:39 Dose: 10 mg Documented by: Miscellaneous Information (Pneumonia Protocol Utilized) 1 each PO ONCE PRN PRN Reason: Per Protocol Miscellaneous Information (Potassium Per Protocol) 1 each MISCELLANE DAILY PRN; Protocol PRN Reason: Per Protocol Multivitamins (Theragran) 1 each PO DAILY [facility] Last Admin: 06/07/19 08:40 Dose: 1 each Documented by: Ondansetron HCl (Zofran) 4 mg IVP Q6HR PRN PRN Reason: Nausea And Vomiting Last Admin: 06/06/19 18:32 Dose: 4 mg Documented by: Pantoprazole Sodium (Protonix) 40 mg IV DAILY [facility] Last Admin: 06/08/19 08:52 Dose: 40 mg Documented by: Objective - Vital Signs Vital signs: Vital Signs Temp 97.3 F L 06/09/19 11:50 Pulse 90 06/09/19 11:50 Resp 16 06/09/19 11:50 BP 129/78 06/09/19 11:50 Pulse Ox 97 06/09/19 11:50 Intake & Output 06/08/19 06/09/19 06/09/19 18:59 06:59 18:59 Intake Total 1540 1400 1020 Output Total 404 3150 205 Balance 1136 -1750 815 Weight 73 kg Intake: IV 200 160 320 Sodium Chloride 0.9% 1, 200 160 320 000 ml @ 40 mls/hr IV . Q24H ISABEL Rx#:[id number] Intake, IV Titration 100 340 100 Amount Piperacillin-Tazobactam 3 100 100 100 .375 gm In Sodium Chloride 0.9% 100 ml @ 25 mls/hr IVPB Q12HR ISABEL Rx #:[id number] Sodium Chloride 0.9% 1, 240 000 ml @ 40 mls/hr IV . Q24H ISABEL Rx#:[id number] Oral 1240 900 600 Output: Drainage 80 2200 175 Right Upper Abdomen 80 2200 175 Urine 224 850 Stool 100 100 30 Other: Voiding Method Indwelling Catheter Indwelling Catheter Indwelling Catheter - Exam PHYSICAL EXAMINATION: Patient is lying in the bed comfortably, no acute distress, awake alert and oriented.. HEENT: Normocephalic. Neck is supple. Pupils reactive. Nostrils clear. Oral cavity is moist. Ears reveal no drainage. Neck reveals no JVD, carotid bruits, or thyromegaly. CHEST EXAMINATION: Trachea is central. Symmetrical expansion. Bibasilar crackles and diminished sounds. Otherwise Lung dior clear to auscultation and percussion. CARDIAC: Normal S1, S2 with no gallops. No murmurs ABDOMEN: Soft. Left-sided abdominal wall skin excoriation around the ostomy. Ostomy bag in place. Bowel sounds normal. No organomegaly. No abdominal bruits. Extremities: reveal no edema. No clubbing or cyanosis Neurologically awake, alert, oriented x3 with well-coordinated movements. No focal deficits noted Skin: No rash or skin lesions. Psychiatric: Coperative. Nonsuicidal Musculoskeletal: No joint swelling or deformity. Normal range of motion. - Labs CBC & Chem 7: 06/10/19 10:40 06/10/19 10:40 Labs: Abnormal Lab Results - Last 24 Hours (Table) 06/08/19 06/08/19 06/09/19 Range/Units 17:13 20:31 11:09 POC Glucose (mg/dL) 154 H 193 H 199 H (75-99) mg/dL Assessment and Plan Assessment: Symptomatic bradycardia/Mobitz type II heart block. Likely due to high doses of amiodarone and metoprolol. Transvenous pacemaker was removed. Currently patient is on Coreg 3.125 mg twice daily. Heart rate is currently in 80s.. Possible Left lower lobe pneumonia. Unlikely sepsis. chronic CHF with systolic dysfunction. On Lasix at home.. Chronic Persistent Atrial fibrillation. Patient was bradycardic on admission.. On anticoagulation with Eliquis. Metoprolol and amiodarone on hold Hypoglycemia likely due to insulin at home. Diabetes type 2 insulin-dependent Hypertension Hyperlipidemia Nonischemic cardiomyopathy Hypothyroidism History of colectomy and colostomy. Para stomal hernia. Status post exploratory laparotomy and repair. And colostomy revision. Inflammatory bowel disease. Plan: Patient will be continued on telemetry monitoring. Status post transvenous pacemaker placement and removal. Metoprolol and amiodarone is on hold. Currently on Coreg. Cardiology is following. Continue with antibiotics for left lower lobe pneumonia in the form of Zosyn. Anticoagulation is on hold due to surgery and was restarted. Continue to follow closely and insulin sliding scale. Further recommendations based on the clinical course. Encourage ambulation and PT OT. Prognosis is guarded. Time with Patient: Greater than 30
== END 2019-06-10 18:35 | DRG 264 ==
LOC: EC 14:01 → 2SICU 16:44 → 3NMEDONC 06-08 13:05
PROVIDERS: ADMIT Internal Medicine; ATTEND Internal Medicine
PROC: 5A1223Z Performance of Cardiac Pacing, Continuous (ICD-10-PCS; 2019-05-31)
PROC: 0WQF0ZZ Repair Abdominal Wall, Open Approach (ICD-10-PCS; 2019-06-03)
PROC: 0WQF0ZZ Repair Abdominal Wall, Open Approach (ICD-10-PCS; 2019-06-03)
PROC: 0DBU0ZZ Excision of Omentum, Open Approach (ICD-10-PCS; 2019-06-03)
PROC: 0D1E4Z4 Bypass Large Intestine to Cutaneous, Percutaneous Endoscopic Approach (ICD-10-PCS; 2019-06-03)
PROC: 0DBE0ZZ Excision of Large Intestine, Open Approach (ICD-10-PCS; principal; 2019-06-03 13:00)
PROC: 0DNW0ZZ Release Peritoneum, Open Approach (ICD-10-PCS; 2019-06-03 13:00)
DX: I44.1 Atrioventricular block, second degree (principal); J15.6 Pneumonia due to other Gram-negative bacteria; E87.2 Acidosis; I13.0 Hypertensive heart and chronic kidney disease with heart failure and stage 1 through stage 4 chronic kidney disease, or unspecified chronic kidney disease; I50.22 Chronic systolic (congestive) heart failure; K56.7 Ileus, unspecified; K63.2 Fistula of intestine; N17.9 Acute kidney failure, unspecified; N39.0 Urinary tract infection, site not specified; I42.8 Other cardiomyopathies; I48.11 Longstanding persistent atrial fibrillation; R00.1 Bradycardia, unspecified; E03.9 Hypothyroidism, unspecified; E11.649 Type 2 diabetes mellitus with hypoglycemia without coma; T38.3X5A Adverse effect of insulin and oral hypoglycemic [antidiabetic] drugs, initial encounter; Z79.4 Long term (current) use of insulin; E78.5 Hyperlipidemia, unspecified; F03.90 Unspecified dementia, unspecified severity, without behavioral disturbance, psychotic disturbance, mood disturbance, and anxiety; N18.3 Chronic kidney disease, stage 3 (moderate); E11.22 Type 2 diabetes mellitus with diabetic chronic kidney disease; I25.10 Atherosclerotic heart disease of native coronary artery without angina pectoris; K43.2 Incisional hernia without obstruction or gangrene; K43.5 Parastomal hernia without obstruction or gangrene; K52.3 Indeterminate colitis; M75.101 Unspecified rotator cuff tear or rupture of right shoulder, not specified as traumatic; T46.2X5A Adverse effect of other antidysrhythmic drugs, initial encounter; Z79.01 Long term (current) use of anticoagulants; Z79.890 Hormone replacement therapy; Z79.899 Other long term (current) drug therapy; Z87.01 Personal history of pneumonia (recurrent); Z93.3 Colostomy status; Z90.49 Acquired absence of other specified parts of digestive tract; K66.0 Peritoneal adhesions (postprocedural) (postinfection); K57.30 Diverticulosis of large intestine without perforation or abscess without bleeding
CPT/HCPCS: 33210; 36415; 51702; 71045; 74176; 80048; 80053; 81001; 83605; 83735; 83880; 84132; 84145; 84443; 85025; 85027; 87040; 87502; 88307; 93005; 94640; 96361; 96374; 99291

== ENCOUNTER 2019-06-11 23:55 | Inpatient (IN) | payer MEDICARE, OTHER ==
--- NOTE | 2019-06-12 00:20 | ED ---
General Adult HPI - General Chief complaint: Arrhythmia/Palpitations Stated complaint: Afib Time Seen by Provider: 06/12/19 00:06 Source: EMS Mode of arrival: EMS Limitations: no limitations - History of Present Illness Initial comments: This patient is a 73-year-old woman transferred here from [facility]. The patient had been seen there is a transfer from the [facility]. Patient had been coughing more frequently and there was concern about possibility of developing healthcare associated pneumonia. Workup at the outside facility reportedly revealed patient to have pneumonia and also minimally elevated troponin. Patient transferred here for further care. History from the patient reveals a cough that is been worsening over 1-2 days. Some sputum patient not able to describe. Patient complains of some bilateral rib pain when she coughs otherwise no chest pain. Patient did receive Zosyn 3.375 g, albuterol 1 treatment, and aspirin 325 mg at the transferring facility. Onset/Timin -: days(s) Severity scale (1-10): 0 Improves with: none Worsens with: none Associated Symptoms: cough, fever/chills - Related Data Home Medications Medication Instructions Recorded Confirmed Atorvastatin [Lipitor] 10 mg PO HS 06/03/18 05/31/19 Calcium Acetate [PhosLo] 667 mg PO DAILY 06/03/18 05/31/19 Calcium Carbonate/Vitamin D3 1 tab PO DAILY 06/03/18 05/31/19 [Calcium 600-Vit D3 400 Tablet] Levothyroxine Sodium [Synthroid] 25 mcg PO DAILY 06/03/18 05/31/19 Magnesium Oxide [Mag-Ox] 400 mg PO BID 06/03/18 05/31/19 Multivitamins, Thera [Multivitamin 1 tab PO DAILY 06/03/18 05/31/19 (formulary)] Loratadine 10 mg PO DAILY 03/31/19 05/31/19 INSULIN LISPRO (humaLOG) [humaLOG] See Protocol SQ DIRECTED 04/11/19 05/31/19 Apixaban [Eliquis] 2.5 mg PO BID 05/31/19 05/31/19 Insulin Glargine [Lantus] 14 unit SQ HS 05/31/19 05/31/19 Mesalamine [Delzicol] 400 mg PO BID 05/31/19 05/31/19 Previous Rx's Medication Instructions Recorded Carvedilol [Coreg] 3.125 mg PO BID-W/MEALS #60 tab 06/09/19 Amoxicillin/Potassium Clav 1 tab PO BID 3 Days #6 tab 06/10/19 [Augmentin 875-125 Tablet] guaiFENesin SYRUP 100MG/5ML 200 mg PO Q6H PRN cup 06/10/19 [Robitussin] Allergies Allergy/AdvReac Type Severity Reaction Status Date / Time No Known Allergies Allergy Verified 06/12/19 00:05 Review of Systems ROS Statement: Those systems with pertinent positive or pertinent negative responses have been documented in the HPI. ROS Other: All systems not noted in ROS Statement are negative. Past Medical History Past Medical History: Atrial Fibrillation, Heart Failure, Diabetes Mellitus, Hyperlipidemia, Hypertension, Thyroid Disorder Additional Past Medical History / Comment(s): Mild developmental delay, the patient lives in a foster home since 1990, CHF with systolic heart failure/nonischemic cardiomyopathy, chronic atrial fibrillation, on Eliquis, hypertension, hyperlipidemia, diabetes mellitus, hypothyroidism History of Any Multi-Drug Resistant Organisms: None Reported Past Surgical History: Bladder Surgery, Bowel Resection Additional Past Surgical History / Comment(s): HAS COLOSTOMY. Past Anesthesia/Blood Transfusion Reactions: Unable to Obtain Past Psychological History: No Psychological Hx Reported Smoking Status: Never smoker Past Alcohol Use History: None Reported Past Drug Use History: None Reported - Past Family History Mother Family Medical History: Unable to Obtain General Exam Limitations: no limitations General appearance: alert, in no apparent distress, obese Head exam: Present: atraumatic, normocephalic Eye exam: Present: normal appearance. Absent: scleral icterus, conjunctival injection Neck exam: Present: normal inspection, full ROM Respiratory exam: Present: normal lung sounds bilaterally. Absent: respiratory distress, wheezes, rales, rhonchi, stridor Cardiovascular Exam: Present: regular rate (Rate 96 bpm at my exam), irregular rhythm, normal heart sounds. Absent: systolic murmur, diastolic murmur, rubs, g allop GI/Abdominal exam: Present: soft, normal bowel sounds, other (There is a colostomy in the left lower quadrants with normal-appearing output. Midline surgical incision has intact lizy. There is no erythema warmth or drainage. The wound is clean dry and intact.). Absent: distended, tenderness, guarding, rebound, rigid, mass Rectal exam: Present: normal inspection Extremities exam: Present: normal inspection, normal capillary refill. Absent: pedal edema, calf tenderness Back exam: Present: normal inspection, other (See the skin exam, there is a sacral decubitus ulcer) Neurological exam: Present: alert Skin exam: Present: warm, dry, normal color, other (There is an approximately 10 x 12 cm sacral decubitus ulcer). Absent: intact, rash Course Vital Signs 06/11/19 06/12/19 06/12/19 23:58 00:30 01:00 Temperature 98.2 F Pulse Rate 98 90 98 Respiratory 20 19 20 Rate Blood Pressure 128/84 128/84 115/96 O2 Sat by Pulse 100 100 100 Oximetry 06/12/19 06/12/19 01:30 04:27 Temperature 98.4 F Pulse Rate 96 84 Respiratory 20 20 Rate Blood Pressure 141/86 122/94 O2 Sat by Pulse 100 100 Oximetry EKG Findings - EKG Results: EKG: interpreted by ERMD, normal axis, normal QRS EKG shows: tachycardia (Underlying rhythm appears to be atrial flutter with variable AV conduction some, rate approximately 106 bpm) - Blocks, Gary, Hypertrophy, ST Abn: Repolarization changes or abnormalities: nonspecific abnormality, ST segment, and/or T wave Medical Decision Making - Lab Data Result diagrams: 06/12/19 01:30 06/12/19 01:30 Lab Results 06/12/19 06/12/19 06/12/19 Range/Units 01:30 01:30 01:30 WBC 5.2 (3.8-10.6) k/uL RBC 3.42 L (3.80-5.40) m/uL Hgb 10.1 L (11.4-16.0) gm/dL Hct 31.7 L (34.0-46.0) % MCV 92.7 (80.0-100.0) fL MCH 29.6 (25.0-35.0) pg MCHC 32.0 (31.0-37.0) g/dL RDW 16.4 H (11.5-15.5) % Plt Count 237 (150-450) k/uL Neutrophils % (Manual) 57 % Lymphocytes % (Manual) 33 % Monocytes % (Manual) 9 % Eosinophils % (Manual) 1 % Neutrophils # (Manual) 2.96 (1.3-7.7) k/uL Lymphocytes # (Manual) 1.72 (1.0-4.8) k/uL Monocytes # (Manual) 0.47 (0-1.0) k/uL Eosinophils # (Manual) 0.05 (0-0.7) k/uL Nucleated RBCs 0 (0-0) /100 WBC Manual Slide Review Performed Large Platelets Present Polychromasia Present Hypochromasia Slight Anisocytosis Slight Sodium 143 (137-145) mmol/L Potassium 4.0 (3.5-5.1) mmol/L Chloride 115 H (98-107) mmol/L Carbon Dioxide 25 (22-30) mmol/L Anion Gap 3 mmol/L BUN 31 H (7-17) mg/dL Creatinine 1.63 H (0.52-1.04) mg/dL Est GFR (CKD-EPI)AfAm 35 (>60 ml/min/1.73 sqM) Est GFR (CKD-EPI)NonAf 31 (>60 ml/min/1.73 sqM) Glucose 75 (74-99) mg/dL POC Glucose (mg/dL) (75-99) mg/dL POC Glu Podiatry Professor ID Plasma Lactic Acid Horacio 1.2 (0.7-2.0) mmol/L Calcium 7.7 L (8.4-10.2) mg/dL Total Bilirubin 0.3 (0.2-1.3) mg/dL AST 30 (14-36) U/L ALT 21 (9-52) U/L Alkaline Phosphatase 87 (38-126) U/L Troponin I (0.000-0.034) ng/mL Total Protein 4.3 L (6.3-8.2) g/dL Albumin 1.9 L (3.5-5.0) g/dL 06/12/19 06/12/19 06/12/19 Range/Units 01:30 05:26 06:25 WBC (3.8-10.6) k/uL RBC (3.80-5.40) m/uL Hgb (11.4-16.0) gm/dL Hct (34.0-46.0) % MCV (80.0-100.0) fL MCH (25.0-35.0) pg MCHC (31.0-37.0) g/dL RDW (11.5-15.5) % Plt Count (150-450) k/uL Neutrophils % (Manual) % Lymphocytes % (Manual) % Monocytes % (Manual) % Eosinophils % (Manual) % Neutrophils # (Manual) (1.3-7.7) k/uL Lymphocytes # (Manual) (1.0-4.8) k/uL Monocytes # (Manual) (0-1.0) k/uL Eosinophils # (Manual) (0-0.7) k/uL Nucleated RBCs (0-0) /100 WBC Manual Slide Review Large Platelets Polychromasia Hypochromasia Anisocytosis Sodium (137-145) mmol/L Potassium (3.5-5.1) mmol/L Chloride (98-107) mmol/L Carbon Dioxide (22-30) mmol/L Anion Gap mmol/L BUN (7-17) mg/dL Creatinine (0.52-1.04) mg/dL Est GFR (CKD-EPI)AfAm (>60 ml/min/1.73 sqM) Est GFR (CKD-EPI)NonAf (>60 ml/min/1.73 sqM) Glucose (74-99) mg/dL POC Glucose (mg/dL) 64 L (75-99) mg/dL POC Glu Podiatry Professor ID Reaume, Ethan Plasma Lactic Acid Horacio (0.7-2.0) mmol/L Calcium (8.4-10.2) mg/dL Total Bilirubin (0.2-1.3) mg/dL AST (14-36) U/L ALT (9-52) U/L Alkaline Phosphatase (38-126) U/L Troponin I 0.110 H* 0.086 H* (0.000-0.034) ng/mL Total Protein (6.3-8.2) g/dL Albumin (3.5-5.0) g/dL 06/12/19 Range/Units 06:40 WBC (3.8-10.6) k/uL RBC (3.80-5.40) m/uL Hgb (11.4-16.0) gm/dL Hct (34.0-46.0) % MCV (80.0-100.0) fL MCH (25.0-35.0) pg MCHC (31.0-37.0) g/dL RDW (11.5-15.5) % Plt Count (150-450) k/uL Neutrophils % (Manual) % Lymphocytes % (Manual) % Monocytes % (Manual) % Eosinophils % (Manual) % Neutrophils # (Manual) (1.3-7.7) k/uL Lymphocytes # (Manual) (1.0-4.8) k/uL Monocytes # (Manual) (0-1.0) k/uL Eosinophils # (Manual) (0-0.7) k/uL Nucleated RBCs (0-0) /100 WBC Manual Slide Review Large Platelets Polychromasia Hypochromasia Anisocytosis Sodium (137-145) mmol/L Potassium (3.5-5.1) mmol/L Chloride (98-107) mmol/L Carbon Dioxide (22-30) mmol/L Anion Gap mmol/L BUN (7-17) mg/dL Creatinine (0.52-1.04) mg/dL Est GFR (CKD-EPI)AfAm (>60 ml/min/1.73 sqM) Est GFR (CKD-EPI)NonAf (>60 ml/min/1.73 sqM) Glucose (74-99) mg/dL POC Glucose (mg/dL) 63 L (75-99) mg/dL POC Glu Podiatry Professor ID Tulio Wallis Plasma Lactic Acid Horacoi (0.7-2.0) mmol/L Calcium (8.4-10.2) mg/dL Total Bilirubin (0.2-1.3) mg/dL AST (14-36) U/L ALT (9-52) U/L Alkaline Phosphatase (38-126) U/L Troponin I (0.000-0.034) ng/mL Total Protein (6.3-8.2) g/dL Albumin (3.5-5.0) g/dL Disposition Clinical Impression: Sacral decubitus ulcer, Atrial flutter, Elevated troponin I level, Left lower lobe pneumonia Disposition: ADMITTED IP TO THIS HOSP Condition: Poor Referrals: Adolfo Wang MD [Primary Care Provider] - 1-2 days
[2019-06-12] MEDS ORDERED: MORPHINE SULFATE 4 MG/ML SYRINGE IV STA (01:03)
[2019-06-12 01:43] LABS: Anisocytosis Slight; HCT 31.7 % (34.0-46.0); HGB 10.1 gm/dL (11.4-16.0); Hypochromasia Slight; MCH 29.6 pg (25.0-35.0); MCV 92.7 fL (80.0-100.0); Platelet Count 237 k/uL (150-450); RBC 3.42 m/uL (3.80-5.40); RDW 16.4 % (11.5-15.5); WBC 5.2 k/uL (3.8-10.6)
[2019-06-12 01:53] LABS: Albumin 1.9 g/dL (3.5-5.0); Calcium 7.7 mg/dL (8.4-10.2); Total Bilirubin 0.3 mg/dL (0.2-1.3); Total Protein 4.3 g/dL (6.3-8.2)
[2019-06-12 02:08] LABS: Eosinophils # (M) 0.05 k/uL (0-0.7); Lymphocytes # (M) 1.72 k/uL (1.0-4.8); Monocytes # (M) 0.47 k/uL (0-1.0); Neutrophils % (M) 57 %; Nucleated Red Blood Cells 0 /100 WBC (0-0); Total Cells Counted 100
[2019-06-12 02:10] LABS: Large Platelets Present; Polychromasia Present
[2019-06-12] MEDS ORDERED: PNEUMONIA PROTOCOL UTILIZED 1 EACH MISC PO PRN (04:55)
[2019-06-12] MEDS ORDERED: MORPHINE SULFATE 4 MG/ML SYRINGE IVP ONE (05:43)
[2019-06-12] MEDS: CARVEDILOL 3.125 MG TAB PO SCH ×2 (06:20→16:17)
[2019-06-12] MEDS: SODIUM CHLORIDE 0.9% 1,000 ML IV SCH (06:21)
[2019-06-12 06:26] LABS: Glucose,Whole Blood 64 mg/dL (75-99)
[2019-06-12] MEDS ORDERED: LEVOTHYROXINE 25 MCG TAB PO SCH (06:30)
[2019-06-12 06:45] LABS: Glucose,Whole Blood 63 mg/dL (75-99)
[2019-06-12 06:57] LABS: Glucose,Whole Blood 55 mg/dL (75-99)
[2019-06-12 07:14] LABS: Glucose,Whole Blood 75 mg/dL (75-99)
[2019-06-12 08:11] LABS: Glucose,Whole Blood 152 mg/dL (75-99)
[2019-06-12] MEDS ORDERED: HEPARIN SODIUM,PORCINE 5,000 UNIT/ML 1 ML VIAL SQ SCH (09:00)
[2019-06-12] MEDS: PIPERACILLIN-TAZOBACTAM 3.375 GM in SODIUM CHLORIDE 0.9% 100 ML IVPB SCH ×3 (09:18→22:58)
[2019-06-12] MEDS: APIXABAN 2.5 MG TABLET PO SCH ×2 (09:33→20:03)
[2019-06-12] MEDS: MULTIVITAMINS, THERA 1 EACH TAB PO SCH (09:33)
[2019-06-12] MEDS: CALCIUM ACETATE 667 MG TAB PO SCH (09:33)
[2019-06-12] MEDS: MAGNESIUM OXIDE 400 MG TAB PO SCH ×2 (09:33→20:03)
[2019-06-12] MEDS: CALCIUM CARB-VIT D 500MG-200UN 1 EACH TAB PO SCH (09:33)
[2019-06-12] MEDS: MESALAMINE 400 MG PO SCH ×2 (11:33→20:02)
[2019-06-12] MEDS: MORPHINE SULFATE 4 MG/ML SYRINGE IVP PRN ×3 (11:36→20:03)
[2019-06-12 11:46] LABS: Glucose,Whole Blood 194 mg/dL (75-99)
[2019-06-12] MEDS: INSULIN ASPART (NovoLOG) 100 UNIT/ML VIAL SQ SCH ×3 (12:00→20:42)
--- NOTE | 2019-06-12 12:15 | P.CRDCN ---
History of Present Illness History of present illness: This is Radha Ruiz PA-C dictating a consult on this patient The patient was interviewed and examined by me as well as by Dr. Min Case discussed with Dr. Min and he agrees with the plan of care IMPRESSION / ASSESSMENT: Severe ischemic cardiomyopathy, EF less than 20% Persistent atrial fibrillation, rate fairly well controlled with carvedilol 3.125 twice a day, anticoagulated with eliquis Abnormal troponins likely secondary to combination of atrial tachycardia with RVR and underlying severe ischemic cardiomyopathy History of severe bradycardia on high doses of amiodarone and metoprolol Hypertension, blood pressure stable Dyslipidemia Recent exploratory laparotomy, lysis of lesions, repair of parastomal hernia, partial colectomy and partial omentectomy and repair of incisional hernia PLAN: Continue rate control with carvedilol 3.125 twice a day, hold off on increasing beta blockers as the patient has a history of severe bradycardia Continue anticoagulation with eliquis Continue atorvastatin HPI Patient is a 73-year-old female with a past medical history significant for persistent atrial fibrillation, known severe ischemic cardiomyopathy with an EF less than 20%, type 2 diabetes, hypertension, dyslipidemia, and recent abdominal surgery who presented with concerns for possible pneumonia. She is a patient of Dr. Steel and resides at a long-term care facility. Patient is a somewhat poor historian so her history was taken from the chart. Patient was transferred here from [place] with complaints of worsening cough for the last 2 days. She was started on antibiotics. We've been consulted because she has borderline abnormal troponins. Her EKG showed rapid atrial tachycardia/atrial fibrillation with rapid ventricular response, rate 106. She has been on carvedilol 3.125 twice a day and her rates have been mostly in the 80s with a few episodes up to the low 100s overnight. Patient seen and examined resting comfortably in bed. Complains of some abdominal pain. No chest pain, shortness of breath, palpitations or dizziness. ROS: No fevers, chills or rigors, Positive for cough, Positive abdominal pain, no nausea, vomiting no hematuria, dysuria, no musculoskeletal complaints, no strokes or seizures, EXAMINATION: Temperature 97.4F, pulse 86, respirations 16, blood pressure 110/77, oxygen saturation 100% on 2 L nasal cannula Patient seen and examined resting comfortably in bed, lying flat, in no acute distress Lungs clear to auscultation bilaterally, no wheezing, rhonchi or crackles Heart is irregularly irregular, no murmurs noted No elevated JVD Trace lower extremity edema Abdomen soft, mild tenderness to palpation diffusely REVIEW OF LABS, ECG & MEDICAL DATA WBC 5.2, hemoglobin 10.1, platelets 237, potassium 4.0, BUN 31, creatinine 1.63 Troponin 0.086, 0.11 Past Medical History Past Medical History: Atrial Fibrillation, Heart Failure, Diabetes Mellitus, Hy perlipidemia, Hypertension, Thyroid Disorder Additional Past Medical History / Comment(s): Mild developmental delay, the patient lives in a foster home since 1990, CHF with systolic heart failure/nonischemic cardiomyopathy, chronic atrial fibrillation, on Eliquis, hypertension, hyperlipidemia, diabetes mellitus, hypothyroidism History of Any Multi-Drug Resistant Organisms: None Reported Past Surgical History: Bladder Surgery, Bowel Resection Additional Past Surgical History / Comment(s): HAS COLOSTOMY. Past Anesthesia/Blood Transfusion Reactions: Unable to Obtain Past Psychological History: No Psychological Hx Reported Smoking Status: Never smoker Past Alcohol Use History: None Reported Past Drug Use History: None Reported - Past Family History Mother Family Medical History: Unable to Obtain Medications and Allergies Home Medications Medication Instructions Recorded Confirmed Type Atorvastatin [Lipitor] 10 mg PO HS 06/03/18 06/12/19 History Calcium Acetate [PhosLo] 667 mg PO DAILY 06/03/18 06/12/19 History Calcium Carbonate/Vitamin D3 1 tab PO DAILY 06/03/18 06/12/19 History [Calcium 600-Vit D3 400 Tablet] Levothyroxine Sodium [Synthroid] 25 mcg PO DAILY 06/03/18 06/12/19 History Magnesium Oxide [Mag-Ox] 400 mg PO BID 06/03/18 06/12/19 History Multivitamins, Thera [Multivitamin 1 tab PO DAILY 06/03/18 06/12/19 History (formulary)] Loratadine 10 mg PO DAILY 03/31/19 06/12/19 History INSULIN LISPRO (humaLOG) [humaLOG] See Protocol SQ DAILY 04/11/19 06/12/19 History Apixaban [Eliquis] 2.5 mg PO BID 05/31/19 06/12/19 History Insulin Glargine [Lantus] 14 unit SQ HS 05/31/19 06/12/19 History Mesalamine [Delzicol] 400 mg PO BID 05/31/19 06/12/19 History Carvedilol [Coreg] 3.125 mg PO BID-W/MEALS #60 tab 06/09/19 06/12/19 Rx Amoxicillin/Potassium Clav 1 tab PO BID 3 Days #6 tab 06/10/19 06/12/19 Rx [Augmentin 875-125 Tablet] Allergies Allergy/AdvReac Type Severity Reaction Status Date / Time No Known Allergies Allergy Verified 06/12/19 08:36 Physical Exam Vitals: Vital Signs Temp Pulse Pulse Resp BP BP Pulse Ox 06/12/19 08:00 97.4 F L 86 16 110/77 100 06/12/19 05:35 97.8 F 113 H 22 153/106 96 06/12/19 04:27 98.4 F 84 20 122/94 100 06/12/19 01:30 96 20 141/86 100 06/12/19 01:00 98 20 115/96 100 06/12/19 00:30 90 19 128/84 100 06/11/19 23:58 98.2 F 98 20 128/84 100 Intake and Output 06/11/19 06/12/19 06/12/19 22:59 06:59 14:59 Intake Total 360 Balance 360 Intake: Oral 360 Other: Voiding Method Indwelling Catheter Weight 76.612 kg Results 06/12/19 01:30 06/12/19 01:30 Cardiac Enzymes 06/12/19 06/12/19 06/12/19 Range/Units 01:30 01:30 05:26 AST 30 (14-36) U/L Troponin I 0.110 H* 0.086 H* (0.000-0.034) ng/mL CBC 06/12/19 Range/Units 01:30 WBC 5.2 (3.8-10.6) k/uL RBC 3.42 L (3.80-5.40) m/uL Hgb 10.1 L (11.4-16.0) gm/dL Hct 31.7 L (34.0-46.0) % Plt Count 237 (150-450) k/uL Comprehensive Metabolic Panel 06/12/19 Range/Units 01:30 Sodium 143 (137-145) mmol/L Potassium 4.0 (3.5-5.1) mmol/L Chloride 115 H (98-107) mmol/L Carbon Dioxide 25 (22-30) mmol/L BUN 31 H (7-17) mg/dL Creatinine 1.63 H (0.52-1.04) mg/dL Glucose 75 (74-99) mg/dL Calcium 7.7 L (8.4-10.2) mg/dL AST 30 (14-36) U/L ALT 21 (9-52) U/L Alkaline Phosphatase 87 (38-126) U/L Total Protein 4.3 L (6.3-8.2) g/dL Albumin 1.9 L (3.5-5.0) g/dL Current Medications Generic Name Dose Route Start Last Admin Trade Name Freq PRN Reason Stop Dose Admin Apixaban 2.5 mg 06/12/19 09:00 06/12/19 09:33 Eliquis PO 2.5 mg BID ISABEL Administration Atorvastatin Calcium 10 mg 06/12/19 21:00 Lipitor PO HS ISABEL Calcium Acetate 667 mg 06/12/19 09:00 06/12/19 09:33 Phoslo PO 667 mg DAILY ISABEL Administration Calcium Carbonate 1 each 06/12/19 09:00 06/12/19 09:33 Oscal 500+D PO 1 each DAILY ISABEL Administration Carvedilol 3.125 mg 06/12/19 07:30 06/12/19 06:20 Coreg PO 3.125 mg BID-W/MEALS ISABEL Administration Sodium Chloride 1,000 mls @ 20 mls/hr 06/12/19 05:00 06/12/19 06:21 Saline 0.9% IV 20 mls/hr .Q24H ISABEL Administration Piperacillin Sod/Tazobactam 100 mls @ 25 mls/hr 06/12/19 08:00 06/12/19 09:18 Sod 3.375 gm/ Sodium Chloride IVPB 06/22/19 08:01 25 mls/hr Q8HR ISABEL Administration Insulin Aspart 0 unit 06/12/19 12:30 06/12/19 12:00 Novolog SQ 2 unit ACHS ISABEL Administration Protocol Insulin Detemir 14 unit 06/12/19 21:00 Levemir SQ HS ISABEL Levofloxacin 750 mg 06/13/19 05:00 Levaquin PO Q24H ISABEL Levothyroxine Sodium 25 mcg 10/25/19 06:30 06/12/19 06:20 Synthroid PO 25 mcg DAILY@0630 ISABEL Administration Magnesium Oxide 400 mg 06/12/19 09:00 06/12/19 09:33 Mag-Ox PO 400 mg BID ISABEL Administration Miscellaneous Information 1 each 06/12/19 04:55 Pneumonia Protocol Utilized PO ONCE PRN Per Protocol Morphine Sulfate 4 mg 06/12/19 08:39 06/12/19 11:36 Morphine Sulfate (Inj) IVP 4 mg Q4HR PRN Administration Pain Multivitamins 1 each 06/12/19 09:00 06/12/19 09:33 Theragran PO 1 each DAILY ISABEL Administration Mesalamine 400 Mg 400 mg 06/12/19 09:00 06/12/19 11:33 PO Not Given BID ISABEL Intake and Output 06/11/19 06/12/19 06/12/19 22:59 06:59 14:59 Intake Total 360 Balance 360 Intake: Oral 360 Other: Voiding Method Indwelling Catheter Weight 76.612 kg 06/12/19 01:30 06/12/19 01:30
[2019-06-12 16:52] LABS: Glucose,Whole Blood 271 mg/dL (75-99)
[2019-06-12] MEDS: ATORVASTATIN 10 MG TAB PO SCH (20:03)
[2019-06-12 20:15] LABS: Glucose,Whole Blood 324 mg/dL (75-99)
--- NOTE | 2019-06-12 20:33 | XR ---
EXAMINATION: XR chest 1V portable DATE AND TIME: 06/12/2019 7:01 PM CLINICAL INDICATION: PHH; chf/pneumonia TECHNIQUE: AP upright portable COMPARISON: 06/08/2019 FINDINGS: The upper and mid lungs are well-expanded and clear. There is elevation of the hemidiaphragms consistent with low lung inflation at the moment of x-ray ex posure. There is evidence of small pleural effusions and partial airlessness within the lung bases, g reater on the left. The cardiac silhouette is moderate-markedly enlarged. No abnormal gas collections. The skeletal structures and soft tissues are negative for acute findings. IMPRESSION: SIMILAR OVERALL LUNG INFLATION PATTERN; NO NEW PROCESS.
[2019-06-12] MEDS ORDERED: INSULIN DETEMIR (LEVEMIR) 100 UNIT/ML SYR SQ SCH (21:00)
--- NOTE | 2019-06-12 23:36 | P.HPIM ---
History of Present Illness H&P Date: 06/12/19 Chief Complaint: Abdominal pain Patient is a 72-year-old female with known history of chronic atrial fibrillation on anticoagulation with Eliquis, recent history of bradycardia requiring transvenousby replacement -amiodarone and metoprolol discontinued, CHF with systolic heart failure/nonischemic cardio myopathy, hypertension, hyperlipidemia, inflammatory bowel disease and hypothyroidism as well as diabetes type2 was initially transferred to [facility] from extended care facility due to concern for pneumonia. Workup at the outside facility reportedly revealed patient to have pneumonia and also minimally elevated troponin. Patient transferred here for further care. History from the patient reveals a cough that is been worsening over 1-2 days. Minimal sputum production.. Patient complains of some bilateral rib pain when she coughs otherwise no chest pain. Patient did receive Zosyn 3.375 g, albuterol 1 treatment, and aspirin 325 mg at the transferring facility. Chest x-ray showed no new changes. Patient does have chronic left lower lobe infiltrate-like changes. Patient has been afebrile. Leukocytosis. Patient was discharged from the hospital on 06/10/2019. Troponin 0.110 and 0.086 No leukocytosis. Patient has been afebrile. Review of Systems Constitutional: Patient denies any fever or chills . No generalized weakness or weight loss. Abdomen: Patient denied nausea vomiting and diarrhea and burning sensation on the abdominal wall.. Cardiovascular: Patient denies any chest pain or short of breath no palpitations. Respiratory: patient denied any cough is from production. No shortness of breath Neurologic: Patient denied any numbness or tingling headache. Musculoskeletal: Patient denies any complaints of joint swelling or deformity. Skin: Negative Psychiatric: Negative Endocrine: No heat or cold intolerance. No recent weight gain. Genitourinary: No dysuria or hematuria. All other 14 point ROS negative except the above Past Medical History Past Medical History: Atrial Fibrillation, Heart Failure, Diabetes Mellitus, Hyperlipidemia, Hypertension, Thyroid Disorder Additional Past Medical History / Comment(s): Mild developmental delay, the patient lives in a foster home since 1990, CHF with systolic heart failure/nonischemic cardiomyopathy, chronic atrial fibrillation, on Eliquis, hypertension, hyperlipidemia, diabetes mellitus, hypothyroidism History of Any Multi-Drug Resistant Organisms: None Reported Past Surgical History: Bladder Surgery, Bowel Resection Additional Past Surgical History / Comment(s): HAS COLOSTOMY. Past Anesthesia/Blood Transfusion Reactions: Unable to Obtain Past Psychological History: No Psychological Hx Reported Smoking Status: Never smoker Past Alcohol Use History: None Reported Past Drug Use History: None Reported - Past Family History Mother Family Medical History: Unable to Obtain Medications and Allergies Home Medications Medication Instructions Recorded Confirmed Type Atorvastatin [Lipitor] 10 mg PO HS 06/03/18 06/12/19 History Calcium Acetate [PhosLo] 667 mg PO DAILY 06/03/18 06/12/19 History Calcium Carbonate/Vitamin D3 1 tab PO DAILY 06/03/18 06/12/19 History [Calcium 600-Vit D3 400 Tablet] Levothyroxine Sodium [Synthroid] 25 mcg PO DAILY 06/03/18 06/12/19 History Magnesium Oxide [Mag-Ox] 400 mg PO BID 06/03/18 06/12/19 History Multivitamins, Thera [Multivitamin 1 tab PO DAILY 06/03/18 06/12/19 History (formulary)] Loratadine 10 mg PO DAILY 03/31/19 06/12/19 History INSULIN LISPRO (humaLOG) [humaLOG] See Protocol SQ DAILY 04/11/19 06/12/19 History Apixaban [Eliquis] 2.5 mg PO BID 05/31/19 06/12/19 History Insulin Glargine [Lantus] 14 unit SQ HS 05/31/19 06/12/19 History Mesalamine [Delzicol] 400 mg PO BID 05/31/19 06/12/19 History Carvedilol [Coreg] 3.125 mg PO BID-W/MEALS #60 tab 06/09/19 06/12/19 Rx Amoxicillin/Potassium Clav 1 tab PO BID 3 Days #6 tab 06/10/19 06/12/19 Rx [Augmentin 875-125 Tablet] Allergies Allergy/AdvReac Type Severity Reaction Status Date / Time No Known Allergies Allergy Verified 06/12/19 08:36 Physical Exam Vitals: Vital Signs Temp Pulse Pulse Resp BP BP Pulse Ox 06/12/19 08:00 97.4 F L 86 16 110/77 100 06/12/19 05:35 97.8 F 113 H 22 153/106 96 06/12/19 04:27 98.4 F 84 20 122/94 100 06/12/19 01:30 96 20 141/86 100 06/12/19 01:00 98 20 115/96 100 06/12/19 00:30 90 19 128/84 100 06/11/19 23:58 98.2 F 98 20 128/84 100 Intake and Output 06/11/19 06/12/19 06/12/19 22:59 06:59 14:59 Intake Total 360 Balance 360 Intake: Oral 360 Other: Voiding Method Indwelling Catheter Weight 76.612 kg PHYSICAL EXAMINATION: Patient is lying in the bed comfortably, no acute distress, awake alert and oriented.. HEENT: Normocephalic. Neck is supple. Pupils reactive. Nostrils clear. Oral cavity is moist. Ears reveal no drainage. Neck reveals no JVD, carotid bruits, or thyromegaly. CHEST EXAMINATION: Trachea is central. Symmetrical expansion. Bibasilar crackles and diminished sounds. Otherwise Lung dior clear to auscultation and percussion. CARDIAC: Normal S1, S2 with no gallops. No murmurs . Atrial fibrillation. ABDOMEN: Soft. Left-sided abdominal wall skin excoriation. Ostomy bag in place above this. Bowel sounds normal. No organomegaly. No abdominal bruits. Surgical incision is clean. Extremities: reveal no edema. No clubbing or cyanosis Neurologically awake, alert, oriented x3 with well-coordinated movements. No focal deficits noted Skin: No rash or skin lesions. Psychiatric: Coperative. Nonsuicidal Musculoskeletal: No joint swelling or deformity. Normal range of motion. Results CBC & Chem 7: 06/12/19 01:30 06/12/19 01:30 Labs: Abnormal Lab Results - Last 24 Hours (Table) 06/12/19 06/12/19 06/12/19 Range/Units 01:30 01:30 01:30 RBC 3.42 L (3.80-5.40) m/uL Hgb 10.1 L (11.4-16.0) gm/dL Hct 31.7 L (34.0-46.0) % RDW 16.4 H (11.5-15.5) % Chloride 115 H (98-107) mmol/L BUN 31 H (7-17) mg/dL Creatinine 1.63 H (0.52-1.04) mg/dL POC Glucose (mg/dL) (75-99) mg/dL Calcium 7.7 L (8.4-10.2) mg/dL Troponin I 0.110 H* (0.000-0.034) ng/mL Total Protein 4.3 L (6.3-8.2) g/dL Albumin 1.9 L (3.5-5.0) g/dL 06/12/19 06/12/19 06/12/19 Range/Units 05:26 06:25 06:40 RBC (3.80-5.40) m/uL Hgb (11.4-16.0) gm/dL Hct (34.0-46.0) % RDW (11.5-15.5) % Chloride (98-107) mmol/L BUN (7-17) mg/dL Creatinine (0.52-1.04) mg/dL POC Glucose (mg/dL) 64 L 63 L (75-99) mg/dL Calcium (8.4-10.2) mg/dL Troponin I 0.086 H* (0.000-0.034) ng/mL Total Protein (6.3-8.2) g/dL Albumin (3.5-5.0) g/dL 06/12/19 06/12/19 Range/Units 06:56 08:08 RBC (3.80-5.40) m/uL Hgb (11.4-16.0) gm/dL Hct (34.0-46.0) % RDW (11.5-15.5) % Chloride (98-107) mmol/L BUN (7-17) mg/dL Creatinine (0.52-1.04) mg/dL POC Glucose (mg/dL) 55 L 152 H (75-99) mg/dL Calcium (8.4-10.2) mg/dL Troponin I (0.000-0.034) ng/mL Total Protein (6.3-8.2) g/dL Albumin (3.5-5.0) g/dL Thrombosis Risk Factor Assmnt - DVT/VTE Prophylaxis DVT/VTE Prophylaxis: Pharmacologic Prophylaxis ordered - Choose All That Apply Any of the Below Risk Factors Present?: Yes Each Factor Represents 1 point: Obesity (BMI >25), Serious lung disease incl. pneumonia (< 1month), Swollen legs (current) Other Risk Factors: Yes Each Risk Factor Represents 3 Points: Age 75 years or older Thrombosis Risk Factor Assessment Total Risk Factor Score: 6 Thrombosis Risk Factor Assessment Level: High Risk Assessment and Plan Assessment: Mildly elevated troponin level likely due to cardiomyopathy and A. fib with elevated heart rate. Symptomatic bradycardia during recent admission. due to high doses of amiodarone and metoprolol. Status post transvenous pacemaker. Continue with Coreg 3.125 mg twice a day. Heart rate is currently in 80s.. Left lower lobe chronic infiltrates like changes. Unlikely pneumonia.. Para stomal hernia. Status post exploratory laparotomy and repair and colostomy revision. Abdominal pain mainly burning sensation over the skin excoriation. acute on chronic kidney disease stage III. Creatinine level 1.63 chronic CHF with systolic dysfunction. On Lasix at home.. Chronic Persistent Atrial fibrillation. Patient was bradycardic on admission.. On anticoagulation with Eliquis. Metoprolol and amiodarone on hold Hypoglycemia likely due to insulin at home. Diabetes type 2 insulin-dependent Hypertension Hyperlipidemia Nonischemic cardiomyopathy Hypothyroidism History of colectomy and colostomy. Inflammatory bowel disease. Plan: Patient will be continued on current management with Coreg 3.125 mg twice daily. Cardiology has seen the patient and troponins no intervention at this time. We will discontinue IV antibiotics. Patient is tolerating oral diet. Continue the pain medications and wound care. Surgical incision/sutures appears clean. Possible discharge back to infection care facility in the next 24-48 hours. Time with Patient: Greater than 30
[2019-06-13] MEDS: CARVEDILOL 3.125 MG TAB PO SCH ×2 (05:54→17:14)
[2019-06-13] MEDS: MORPHINE SULFATE 4 MG/ML SYRINGE IVP PRN ×3 (05:54→14:56)
[2019-06-13] MEDS: LEVOFLOXACIN 750 MG TAB PO SCH (05:54)
[2019-06-13 05:58] LABS: Glucose,Whole Blood 60 mg/dL (75-99)
[2019-06-13] MEDS: SODIUM CHLORIDE 0.9% 1,000 ML IV SCH (06:00)
[2019-06-13] MEDS: INSULIN ASPART (NovoLOG) 100 UNIT/ML VIAL SQ SCH ×8 (06:01→19:57)
[2019-06-13 06:16] LABS: Glucose,Whole Blood 66 mg/dL (75-99)
[2019-06-13 06:31] LABS: Glucose,Whole Blood 64 mg/dL (75-99)
[2019-06-13] MEDS ORDERED: DEXTROSE 10 % IN WATER 250 ML IV ONE (06:33)
[2019-06-13 06:41] LABS: Glucose,Whole Blood 56 mg/dL (75-99)
[2019-06-13 07:03] LABS: Glucose,Whole Blood 104 mg/dL (75-99)
[2019-06-13] MEDS: MESALAMINE 400 MG PO SCH ×2 (10:18→19:48)
[2019-06-13] MEDS: PIPERACILLIN-TAZOBACTAM 3.375 GM in SODIUM CHLORIDE 0.9% 100 ML IVPB SCH ×3 (10:27→22:55)
[2019-06-13] MEDS: CALCIUM ACETATE 667 MG TAB PO SCH (10:28)
[2019-06-13] MEDS: MAGNESIUM OXIDE 400 MG TAB PO SCH ×2 (10:28→19:53)
[2019-06-13] MEDS: APIXABAN 2.5 MG TABLET PO SCH ×2 (10:28→19:53)
[2019-06-13] MEDS: MULTIVITAMINS, THERA 1 EACH TAB PO SCH (10:28)
[2019-06-13] MEDS: CALCIUM CARB-VIT D 500MG-200UN 1 EACH TAB PO SCH (10:28)
--- NOTE | 2019-06-13 11:19 | P.GSCN ---
History of Present Illness Consult date: 06/13/19 Reason for Consult: Recent exploratory laparotomy History of present illness: Patient hospitalized for shortness of breath and possible pneumonia. Patient was recently hospitalized for parastomal hernia and underwent exploratory laparotomy with partial colonic resection incisional hernia repair and revision of her colostomy site with movement to the left upper quadrant. She has had irritation all around the skin near the previous hernia site. This was present at the time of recent surgery as well. She has a drain that is still in place. This is serosanguineous. No fevers. Mild tachycardia. Shortness of breath seems improved. White blood cell count 5.2. Initial colostomy was placed for constipation and 2013. Review of Systems The patient denies any acute changes in vision or hearing, no dysphagia or odynophagia, no dysuria or hematuria, no headache, no runny nose, no rectal bleeding or melena, no unexplained weight loss Past Medical History Past Medical History: Atrial Fibrillation, Heart Failure, Diabetes Mellitus, Hyperlipidemia, Hypertension, Thyroid Disorder Additional Past Medical History / Comment(s): Mild developmental delay, the patient lives in a foster home since 1990, CHF with systolic heart failure/nonischemic cardiomyopathy, chronic atrial fibrillation, on Eliquis, hypertension, hyperlipidemia, diabetes mellitus, hypothyroidism History of Any Multi-Drug Resistant Organisms: None Reported Past Surgical History: Bladder Surgery, Bowel Resection Additional Past Surgical History / Comment(s): HAS COLOSTOMY. Past Anesthesia/Blood Transfusion Reactions: Unable to Obtain Past Psychological History: No Psychological Hx Reported Smoking Status: Never smoker Past Alcohol Use History: None Reported Past Drug Use History: None Reported - Past Family History Mother Family Medical History: Unable to Obtain Medications and Allergies Home Medications Medication Instructions Recorded Confirmed Type Atorvastatin [Lipitor] 10 mg PO HS 06/03/18 06/12/19 History Calcium Acetate [PhosLo] 667 mg PO DAILY 06/03/18 06/12/19 History Calcium Carbonate/Vitamin D3 1 tab PO DAILY 06/03/18 06/12/19 History [Calcium 600-Vit D3 400 Tablet] Levothyroxine Sodium [Synthroid] 25 mcg PO DAILY 06/03/18 06/12/19 History Magnesium Oxide [Mag-Ox] 400 mg PO BID 06/03/18 06/12/19 History Multivitamins, Thera [Multivitamin 1 tab PO DAILY 06/03/18 06/12/19 History (formulary)] Loratadine 10 mg PO DAILY 03/31/19 06/12/19 History INSULIN LISPRO (humaLOG) [humaLOG] See Protocol SQ DAILY 04/11/19 06/12/19 History Apixaban [Eliquis] 2.5 mg PO BID 05/31/19 06/12/19 History Insulin Glargine [Lantus] 14 unit SQ HS 05/31/19 06/12/19 History Mesalamine [Delzicol] 400 mg PO BID 05/31/19 06/12/19 History Carvedilol [Coreg] 3.125 mg PO BID-W/MEALS #60 tab 06/09/19 06/12/19 Rx Amoxicillin/Potassium Clav 1 tab PO BID 3 Days #6 tab 06/10/19 06/12/19 Rx [Augmentin 875-125 Tablet] Allergies Allergy/AdvReac Type Severity Reaction Status Date / Time No Known Allergies Allergy Verified 06/12/19 08:36 Surgical - Exam Vital Signs Temp Pulse Resp BP Pulse Ox 98.2 F 98 20 128/84 100 06/11/19 23:58 06/11/19 23:58 06/11/19 23:58 06/11/19 23:58 06/11/19 23:58 Physical exam: General: Well-developed, well-nourished HEENT: Normocephalic, sclerae nonicteric Abdomen: Nondistended, mild incisional tenderness, mild tenderness at the left lower quadrant horizontal scar site where the ostomy was previously located. Some skin breakdown in that area, difficult to state whether this is new or was present previously Extremities: No edema Neuro: Alert and oriented Results - Labs 06/12/19 01:30 06/12/19 01:30 Abnormal Lab Results - Last 24 Hours (Table) 06/12/19 06/12/19 06/12/19 Range/Units 11:42 16:50 20:14 POC Glucose (mg/dL) 194 H 271 H 324 H (75-99) mg/dL 06/13/19 06/13/19 06/13/19 Range/Units 05:55 06:10 06:24 POC Glucose (mg/dL) 60 L 66 L 64 L (75-99) mg/dL 10/26/19 10/26/19 Range/Units 06:31 06:51 POC Glucose (mg/dL) 56 L 104 H (75-99) mg/dL Microbiology - Last 24 Hours (Table) 06/12/19 05:26 Blood Culture - Preliminary Blood No Growth after 24 hours Assessment and Plan (1) Parastomal hernia Narrative/Plan: 73-year-old female with recent colostomy revision. We'll place bacitracin over the excoriated skin near the previous ostomy site. Continue diet as tolerated. Keep drain in place for now. We'll follow with you. Current Visit: Yes Status: Acute Code(s): K43.5 - PARASTOMAL HERNIA WITHOUT OBSTRUCTION OR GANGRENE SNOMED Code(s): 386705956
[2019-06-13 11:48] LABS: Glucose,Whole Blood 253 mg/dL (75-99)
--- NOTE | 2019-06-13 13:05 | P.PN ---
Subjective Progress Note Date: 06/13/19 This is a 73-year-old obese female with a past medical history significant for persistent atrial fibrillation, known severe ischemic cardiomyopathy with an EF less than 20%, type 2 diabetes, hypertension, dyslipidemia, and recent abdominal surgery who presented with concerns for possible pneumonia. She is a patient of Dr. Steel and resides at a long-term care facility. Patient is a somewhat poor historian so her history was taken from the chart. Patient was transferred here from [facility] with complaints of worsening cough for the last 2 days. She was started on antibiotics. We've been consulted because she has borderline abnormal troponins. Her EKG showed rapid atrial tachycardia/atrial fibrillation with rapid ventricular response, rate 106. She has been on carvedilol 3.125 twice a day and her rates have been mostly in the 80s with a few episodes up to the low 100s overnight. Patient seen and examined resting comfortably in bed. Complains of some abdominal pain. No chest pain, shortness of breath, palpitations or dizzine 06/13: Patient is being rechecked today in follow-up regarding elevated troponins. Initial troponin 0.110 and repeat 0.086. 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 Heart rate is in the low 100s. Blood pressure 115/79 pulse ox 98% on 2 L nasal cannula. Chest x-ray from last exam reveals similar overall lung inflation pattern. No new process. Maintain current medications. No plan for heart catheterization at this time. This morning she had a low blood glucose and given dextrose 10% per protocol. This has been addressed by primary. Gen: This is a 73-year-old female. She is resting in bed and appears to be comfortable. Patient is very talkative. HEENT: Head is atraumatic, normocephalic. Pupils equal, round. Sclerae is anicteric. NECK: Supple. No JVD. No lymphadenopathy. No thyromegaly. LUNGS: Clear to auscultation. No wheezes or rhonchi. No intercostal retracti ons. HEART: Irregularly irregular rate and rhythm. No murmur. ABDOMEN: Soft. Bowel sounds are present. No masses. No tenderness. EXTREMITIES: trace pedal edema. No calf tenderness. NEUROLOGICAL: Patient is awake, alert and oriented. Assessment: Severe ischemic cardiomyopathy, EF less than 20% Persistent atrial fibrillation, rate fairly well controlled, anticoagulated with eliquis Abnormal troponins likely secondary to combination of atrial fibrillation with RVR and underlying severe ischemic cardiomyopathy History of severe bradycardia on high doses of amiodarone and metoprolol Hypertension, blood pressure stable Dyslipidemia Recent exploratory laparotomy, lysis of lesions, repair of parastomal hernia, partial colectomy and partial omentectomy and repair of incisional hernia Plan: Continue rate control with carvedilol 3.125 twice a day, hold off on increasing beta blockers as the patient has a history of severe bradycardia Continue anticoagulation with eliquis Continue atorvastatin Further recommendations to follow based upon clinical course. Nurse practitioner note has been reviewed, I agree with documented findings and plan of care. Patient was seen and examined. Objective - Vital Signs Vital signs: Vital Signs Temp 98.4 F 06/13/19 03:56 Pulse 115 H 06/13/19 03:57 Resp 16 06/13/19 03:57 BP 109/66 06/13/19 03:56 Pulse Ox 98 06/13/19 03:56 Intake & Output 06/12/19 06/13/19 06/13/19 18:59 06:59 18:59 Intake Total 980 260 480 Output Total 120 385 Balance 860 -125 480 Weight 76.612 kg 74 kg Intake: IV 260 260 Piperacillin-Tazobactam 3 100 100 .375 gm In Sodium Chloride 0.9% 100 ml @ 25 mls/hr IVPB Q8HR [facility] Rx# :[id number] Sodium Chloride 0.9% 1, 160 160 000 ml @ 20 mls/hr IV . Q24H [facility] Rx#:[id number] Oral 720 480 Output: Drainage 120 60 Right Abdomen 120 60 Urine 325 Other: Voiding Method Indwelling Catheter Indwelling Catheter # Bowel Movements 1 - Labs CBC & Chem 7: 06/12/19 01:30 06/12/19 01:30 Labs: Abnormal Lab Results - Last 24 Hours (Table) 06/12/19 06/12/19 06/12/19 Range/Units 11:42 16:50 20:14 POC Glucose (mg/dL) 194 H 271 H 324 H (75-99) mg/dL 06/13/19 06/13/19 06/13/19 Range/Units 05:55 06:10 06:24 POC Glucose (mg/dL) 60 L 66 L 64 L (75-99) mg/dL 06/13/19 06/13/19 Range/Units 06:31 06:51 POC Glucose (mg/dL) 56 L 104 H (75-99) mg/dL Microbiology - Last 24 Hours (Table) 06/12/19 05:26 Blood Culture - Preliminary Blood No Growth after 24 hours
--- NOTE | 2019-06-13 13:16 | P.CNPUL ---
History of Present Illness Consult date: 06/13/19 Requesting physician: Rajat Stewart Reason for consult: dyspnea Chief complaint: Shortness of breath History of present illness: This is a pleasant 73-year-old female patient who resides at [facility]. She has a history of nonischemic cardiomyopathy with a baseline ejection fraction of 20-25%, chronic systolic congestive heart failure, chronic atrial fibrillation anticoagulated with Eliquis, mild developmental delay, hypertension, hyperlipidemia, bowel resection and colostomy, hypothyroidism, type 2 diabetes. She was just discharged from here on 06/10/2019 to an extended care facility after being hospitalized with symptomatic bradycardia, recovered without permanent pacemaker implantation, and significant excoriation around her ostomy site. She had undergone surgery with a new ostomy placement on 06/03/2019. She was returned to [facility] yesterday with complaints of increasing shortness of breath, cough and congestion. X-ray showed elevation of the hemidiaphragms consistent with low lung inflation and small pleural effusions left greater than right. No new processes compared to June 08 x-ray. White count 5.2. Hemoglobin 10.1. Creatinine 1.63. Troponin 0.110, 0.086. ProBNP 39,000. He was readmitted to the selective care unit. She is seen today in consultation. She is awake and alert in no acute distress. Resting quite flat in bed. She is afebrile. Maintaining good O2 saturations in the upper 90s on 2 L/m per nasal cannula. Hemodynamically stable. Atrial fibrillation/flutter. She remains on Eliquis. Review of Systems REVIEW OF SYSTEMS: CONSTITUTIONAL: Denies any recent significant weight loss or weight gain. EYES: Denies change in vision. EARS, NOSE, MOUTH, THROAT: Denies headaches, denies sore throat. CARDIOVASCULAR: Denies chest pain, palpitations or syncopal episodes. RESPIRATORY: Positive for shortness of breath, cough, congestion no hemoptysis. GASTROINTESTINAL: Denies change in appetite, denies abdominal pain, ostomy patent. GENITOURINARY: Denies hematuria, denies infections. MUSKULOSKELETAL: Denies pain, denies swelling. INTEGUMENTARY: Denies rash, denies eczema. NEUROLOGICAL: Denies recent memory loss, no recent seizure activity. PSYCHIATRIC: Denies anxiety, denies depression. HEMATOLOGIC/LYMPHATIC: Denies anemia, denies enlarged lymph nodes. Past Medical History Past Medical History: Atrial Fibrillation, Heart Failure, Diabetes Mellitus, Hyperlipidemia, Hypertension, Thyroid Disorder Additional Past Medical History / Comment(s): Mild developmental delay, the patient lives in a foster home since 1990, CHF with systolic heart failure/nonischemic cardiomyopathy, chronic atrial fibrillation, on Eliquis, hypertension, hyperlipidemia, diabetes mellitus, hypothyroidism History of Any Multi-Drug Resistant Organisms: None Reported Past Surgical History: Bladder Surgery, Bowel Resection Additional Past Surgical History / Comment(s): HAS COLOSTOMY. Past Anesthesia/Blood Transfusion Reactions: Unable to Obtain Past Psychological History: No Psychological Hx Reported Smoking Status: Never smoker Past Alcohol Use History: None Reported Past Drug Use History: None Reported - Past Family History Mother Family Medical History: Unable to Obtain Medications and Allergies Home Medications Medication Instructions Recorded Confirmed Type Atorvastatin [Lipitor] 10 mg PO HS 06/03/18 06/12/19 History Calcium Acetate [PhosLo] 667 mg PO DAILY 06/03/18 06/12/19 History Calcium Carbonate/Vitamin D3 1 tab PO DAILY 06/03/18 06/12/19 History [Calcium 600-Vit D3 400 Tablet] Levothyroxine Sodium [Synthroid] 25 mcg PO DAILY 06/03/18 06/12/19 History Magnesium Oxide [Mag-Ox] 400 mg PO BID 06/03/18 06/12/19 History Multivitamins, Thera [Multivitamin 1 tab PO DAILY 06/03/18 06/12/19 History (formulary)] Loratadine 10 mg PO DAILY 03/31/19 06/12/19 History INSULIN LISPRO (humaLOG) [humaLOG] See Protocol SQ DAILY 04/11/19 06/12/19 History Apixaban [Eliquis] 2.5 mg PO BID 05/31/19 06/12/19 History Insulin Glargine [Lantus] 14 unit SQ HS 05/31/19 06/12/19 History Mesalamine [Delzicol] 400 mg PO BID 05/31/19 06/12/19 History Carvedilol [Coreg] 3.125 mg PO BID-W/MEALS #60 tab 06/09/19 06/12/19 Rx Amoxicillin/Potassium Clav 1 tab PO BID 3 Days #6 tab 06/10/19 06/12/19 Rx [Augmentin 875-125 Tablet] Allergies Allergy/AdvReac Type Severity Reaction Status Date / Time No Known Allergies Allergy Verified 06/12/19 08:36 Physical Exam Vitals: Vital Signs Temp Pulse Resp BP Pulse Ox 06/13/19 09:45 98.1 F 109 H 16 115/69 98 06/13/19 03:57 115 H 16 06/13/19 03:56 98.4 F 115 H 16 109/66 98 06/13/19 00:00 99.0 F 92 16 120/73 99 06/12/19 20:00 98.2 F 98 18 131/82 99 06/12/19 16:00 98.4 F 105 H 16 138/82 99 Intake and Output 06/12/19 06/13/19 06/13/19 22:59 06:59 14:59 Intake Total 500 480 Output Total 50 385 70 Balance 450 -385 410 Intake: IV 260 Piperacillin-Tazobactam 3 100 .375 gm In Sodium Chloride 0.9% 100 ml @ 25 mls/hr IVPB Q8HR [facility] Rx# :[id number] Sodium Chloride 0.9% 1, 160 000 ml @ 20 mls/hr IV . Q24H [facility] Rx#:[id number] Oral 240 480 Output: Drainage 50 60 70 Right Abdomen 50 60 70 Urine 325 Other: Voiding Method Indwelling Catheter Indwelling Catheter Indwelling Catheter # Bowel Movements 1 Weight 74 kg GENERAL EXAM: Alert, pleasant, 73-year-old female patient, somewhat of a poor historian, oriented 3, and 2 L nasal cannula,comfortable in no apparent distress. HEAD: Normocephalic/atraumatic. EYES: Normal reaction of pupils, equal size. Conjunctiva pink, sclera white. NOSE: Clear with pink turbinates. THROAT: No erythema or exudates. NECK: No masses, no JVD, no thyroid enlargement, no adenopathy. CHEST: No chest wall deformity. Symmetrical expansion. LUNGS: Equal air entry with crackles in the bilateral posterior bases CVS: Irregular rate and rhythm, normal S1 and S2, no gallops, no murmurs, no rubs ABDOMEN: Soft, left lower quadrant ostomy. No hepatosplenomegaly, normal bowel sounds, no guarding or rigidity. EXTREMITIES: No clubbing, no edema, no cyanosis, 2+ pulses and upper and lower extremities. MUSCULOSKELETAL: Muscle strength and tone normal. SPINE: No scoliosis or deformity SKIN: No rashes CENTRAL NERVOUS SYSTEM: No focal deficits, tone is normal in all 4 extremities. PSYCHIATRIC: Alert and oriented -3. Appropriate affect. Intact judgment and insight. Results - Laboratory Findings CBC and BMP: 06/12/19 01:30 06/12/19 01:30 Abnormal lab findings: Abnormal Labs 06/12/19 06/12/19 06/12/19 01:30 01:30 01:30 RBC 3.42 L Hgb 10.1 L Hct 31.7 L RDW 16.4 H Chloride 115 H BUN 31 H Creatinine 1.63 H POC Glucose (mg/dL) Calcium 7.7 L Troponin I 0.110 H* Total Protein 4.3 L Albumin 1.9 L 06/12/19 06/12/19 06/12/19 05:26 06:25 06:40 RBC Hgb Hct RDW Chloride BUN Creatinine POC Glucose (mg/dL) 64 L 63 L Calcium Troponin I 0.086 H* Total Protein Albumin 06/12/19 06/12/19 06/12/19 06:56 08:08 11:42 RBC Hgb Hct RDW Chloride BUN Creatinine POC Glucose (mg/dL) 55 L 152 H 194 H Calcium Troponin I Total Protein Albumin 06/12/19 06/12/19 06/13/19 16:50 20:14 05:55 RBC Hgb Hct RDW Chloride BUN Creatinine POC Glucose (mg/dL) 271 H 324 H 60 L Calcium Troponin I Total Protein Albumin 06/13/19 06/13/19 06/13/19 06:10 06:24 06:31 RBC Hgb Hct RDW Chloride BUN Creatinine POC Glucose (mg/dL) 66 L 64 L 56 L Calcium Troponin I Total Protein Albumin 06/13/19 06/13/19 06:51 11:46 RBC Hgb Hct RDW Chloride BUN Creatinine POC Glucose (mg/dL) 104 H 253 H Calcium Troponin I Total Protein Albumin - Diagnostic Findings Chest x-ray: image reviewed Assessment and Plan Assessment: Impression: #1 Acute exacerbation of chronic systolic congestive heart failure in a patient with known nonischemic cardiomyopathy ejection fraction 20-25%. #2 Acute hypoxic respiratory failure secondary to above him a no clear evidence of pneumonia. No fever. No leukocytosis. #3 Recent hospitalization for severe symptomatic bradycardia requiring temporary pacemaker. No permanent pacemaker placed. Medications adjusted. #4 Recent hospitalization for extensive excoriation around the ostomy site status post new ostomy site, viable. #5 Chronic right lower extremity wound suspect diabetic ulcer area #6 Diabetes mellitus, type II. #7 Hypothyroidism. #8 Chronic persistent atrial fibrillation, anticoagulated with Eliquis. #9 Hypertension. #10 Hyperlipidemia. Plan: The patient was seen and evaluated by Dr. Portillo. Chest x-ray and labs reviewed. No clear evidence of pneumonia. She is currently on Zosyn and Levaquin. Add incentive spirometer. Cardiology is on the case regarding the congestive heart failure. We'll continue to follow and make further recommendations based on her clinical status. I, the cosigning physician, performed a history & physical examination of the patient. Lungs sounds with crackles in the bilateral posterior bases. Maintaining good O2 saturations in the 90s on 2 L/m per nasal cannula. I disc ussed the assessment and plan of care with my nurse practitioner, Lisha Strickland. I attest to the above note as dictated by her. Time with Patient: Greater than 30
[2019-06-13] MEDS: FUROSEMIDE 10 MG/ML 4 ML VIAL IV SCH (14:55)
[2019-06-13] MEDS: BACITRACIN 500 UNIT/GM OINT 28.4 GM TUBE TOPICAL SCH ×2 (14:57→19:56)
[2019-06-13 16:55] LABS: Glucose,Whole Blood 207 mg/dL (75-99)
[2019-06-13] MEDS: traMADol 50 MG TAB PO SCH ×2 (17:14→19:53)
[2019-06-13] MEDS: INSULIN DETEMIR (LEVEMIR) 100 UNIT/ML SYR SQ SCH (19:52)
[2019-06-13] MEDS: ATORVASTATIN 10 MG TAB PO SCH (19:53)
[2019-06-13 19:55] LABS: Glucose,Whole Blood 137 mg/dL (75-99)
--- NOTE | 2019-06-13 23:23 | P.PN ---
Subjective Progress Note Date: 06/13/19 Principal diagnosis: Mildly elevated troponin level Shortness of breath Abdominal pain at the site of skin excoriation below the colostomy. Patient is a 72-year-old female with known history of chronic atrial fibrillation on anticoagulation with Eliquis, recent history of bradycardia requiring transvenousby replacement -amiodarone and metoprolol discontinued, CHF with systolic heart failure/nonischemic cardio myopathy, hypertension, hyperlipidemia, inflammatory bowel disease and hypothyroidism as well as diabetes type2 was initially transferred to [facility] due to concern for pneumonia. Workup at the outside facility reportedly revealed patient to have pneumonia and also minimally elevated troponin. Patient transferred here for further care. History from the patient reveals a cough that is been worsening over 1-2 days. Minimal sputum production.. Patient complains of some bilateral rib pain when she coughs otherwise no chest pain. Patient did receive Zosyn 3.375 g, albuterol 1 treatment, and aspirin 325 mg at the transferring facility. Chest x-ray showed no new changes. Patient does have chronic left lower lobe in filtrate-like changes. Patient has been afebrile. Leukocytosis. Patient was discharged from the hospital on 06/10/2019. Troponin 0.110 and 0.086 No leukocytosis. Patient has been afebrile. 06/13/2019 Patient says that she feels better today. No fever no chills. Patient was seen by pulmonary. Unlikely pneumonia. Patient was also seen by general surgery and bacitracin ointment was applied at the skin excoriation site on the abdomen. Ostomy is functioning very well. Serositis pain is from the drain tube. Patient says that her abdominal pain is better. Tolerating oral diet. No chest pain or shortness of. Patient is being continued on Coreg 3.125 mg twice daily. Anticipate discharged to rehab on Saturday. Current medications reviewed. Active Medications Apixaban (Eliquis) 2.5 mg PO BID [facility] Last Admin: 06/13/19 19:53 Dose: 2.5 mg Documented by: Atorvastatin Calcium (Lipitor) 10 mg PO HS [facility] Last Admin: 06/13/19 19:53 Dose: 10 mg Documented by: Bacitracin (Bacitracin Oint) 1 applic TOPICAL BID [facility] Last Admin: 06/13/19 19:56 Dose: 1 applic Documented by: Calcium Acetate (Phoslo) 667 mg PO DAILY [facility] Last Admin: 06/13/19 10:28 Dose: 667 mg Documented by: Calcium Carbonate (Oscal 500+D) 1 each PO DAILY [facility] Last Admin: 06/13/19 10:28 Dose: 1 each Documented by: Carvedilol (Coreg) 3.125 mg PO BID-W/MEALS [facility] Last Admin: 06/13/19 17:14 Dose: 3.125 mg Documented by: Furosemide (Lasix) 40 mg IV DAILY [facility] Last Admin: 06/13/19 14:55 Dose: 40 mg Documented by: Sodium Chloride (Saline 0.9%) 1,000 mls @ 20 mls/hr IV .Q24H [facility] Last Admin: 06/13/19 06:00 Dose: 20 mls/hr Documented by: Piperacillin Sod/Tazobactam (Sod 3.375 gm/ Sodium Chloride) 100 mls @ 25 mls/hr IVPB Q8HR [facility] Stop: 06/22/19 08:01 Last Admin: 06/13/19 22:55 Dose: 25 mls/hr Documented by: Insulin Aspart (Novolog) 0 unit SQ [facility]; Protocol Last Admin: 06/13/19 19:57 Dose: 1 unit Documented by: Insulin Aspart (Novolog) 2 unit SQ ACHS [facility] Last Admin: 06/13/19 19:57 Dose: 2 unit Documented by: Insulin Detemir (Levemir) 10 unit SQ HS [facility] Last Admin: 06/13/19 19:52 Dose: Not Given Documented by: Levofloxacin (Levaquin) 750 mg PO Q24H [facility] Last Admin: 06/13/19 05:54 Dose: 750 mg Documented by: Magnesium Oxide (Mag-Ox) 400 mg PO BID [facility] Last Admin: 06/13/19 19:53 Dose: 400 mg Documented by: Miscellaneous Information (Pneumonia Protocol Utilized) 1 each PO ONCE PRN PRN Reason: Per Protocol Morphine Sulfate (Morphine Sulfate (Inj)) 4 mg IVP Q4HR PRN PRN Reason: Pain Last Admin: 06/13/19 14:56 Dose: 4 mg Documented by: Multivitamins (Theragran) 1 each PO DAILY [facility] Last Admin: 06/13/19 10:28 Dose: 1 each Documented by: Mesalamine 400 Mg 400 mg PO BID [facility] Last Admin: 06/13/19 19:48 Dose: Not Given Documented by: Tramadol HCl (Ultram) 50 mg PO QID [facility] Last Admin: 06/13/19 19:53 Dose: 50 mg Documented by: Objective - Vital Signs Vital signs: Vital Signs Temp 98.1 F 06/13/19 09:45 Pulse 109 H 06/13/19 09:45 Resp 16 06/13/19 09:45 BP 115/69 06/13/19 09:45 Pulse Ox 98 06/13/19 09:45 Intake & Output 06/12/19 06/13/19 06/13/19 18:59 06:59 18:59 Intake Total 574 388 0079 Output Total 120 385 520 Balance 860 -125 680 Weight 76.612 kg 74 kg Intake: IV 260 260 Piperacillin-Tazobactam 3 100 100 .375 gm In Sodium Chloride 0.9% 100 ml @ 25 mls/hr IVPB Q8HR [facility] Rx# :[id number] Sodium Chloride 0.9% 1, 160 160 000 ml @ 20 mls/hr IV . Q24H [facility] Rx#:[id number] Oral 720 1200 Output: Drainage 120 60 70 Right Abdomen 120 60 70 Urine 325 450 Other: Voiding Method Indwelling Catheter Indwelling Catheter Indwelling Catheter # Bowel Movements 1 - Exam PHYSICAL EXAMINATION: Patient is lying in the bed comfortably, no acute distress, awake alert and oriented.. HEENT: Normocephalic. Neck is supple. Pupils reactive. Nostrils clear. Oral cavity is moist. Ears reveal no drainage. Neck reveals no JVD, carotid bruits, or thyromegaly. CHEST EXAMINATION: Trachea is central. Symmetrical expansion. Bibasilar crackles and diminished sounds. Otherwise Lung dior clear to auscultation and percussion. CARDIAC: Normal S1, S2 with no gallops. No murmurs . Atrial fibrillation. ABDOMEN: Soft. Left-sided abdominal wall skin excoriation. Ostomy bag in place above this. Bowel sounds normal. No organomegaly. No abdominal bruits. Surgical incision is clean. Extremities: reveal no edema. No clubbing or cyanosis Neurologically awake, alert, oriented x3 with well-coordinated movements. No focal deficits noted Skin: No rash or skin lesions. Psychiatric: Coperative. Nonsuicidal Musculoskeletal: No joint swelling or deformity. Normal range of motion. - Labs CBC & Chem 7: 06/12/19 01:30 06/12/19 01:30 Labs: Abnormal Lab Results - Last 24 Hours (Table) 06/12/19 06/12/19 06/13/19 Range/Units 16:50 20:14 05:55 POC Glucose (mg/dL) 271 H 324 H 60 L (75-99) mg/dL 06/13/19 06/13/19 06/13/19 Range/Units 06:10 06:24 06:31 POC Glucose (mg/dL) 66 L 64 L 56 L (75-99) mg/dL 06/13/19 06/13/19 Range/Units 06:51 11:46 POC Glucose (mg/dL) 104 H 253 H (75-99) mg/dL Microbiology - Last 24 Hours (Table) 06/12/19 05:26 Blood Culture - Preliminary Blood No Growth after 24 hours Assessment and Plan Assessment: Mildly elevated troponin level likely due to cardiomyopathy and A. fib with elevated heart rate. Symptomatic bradycardia during recent admission. due to high doses of amiodarone and metoprolol. Status post transvenous pacemaker. Continue with Coreg 3.125 mg twice a day. Heart rate is currently in 80s.. Left lower lobe chronic infiltrates like changes. Unlikely pneumonia.. Para stomal hernia. Status post exploratory laparotomy and repair and colostomy revision. Abdominal pain mainly burning sensation over the skin excoriation. acute on chronic kidney disease stage III. Creatinine level 1.63 chronic CHF with systolic dysfunction. On Lasix at home.. Chronic Persistent Atrial fibrillation. Patient was bradycardic on admission.. On anticoagulation with Eliquis. Metoprolol and amiodarone on hold Hypoglycemia likely due to insulin at home. Diabetes type 2 insulin-dependent Hypertension Hyperlipidemia Nonischemic cardiomyopathy Hypothyroidism History of colectomy and colostomy. Inflammatory bowel disease. Plan: Patient will be continued on current management with Coreg 3.125 mg twice daily. Cardiology has seen the patient and troponins no intervention at this time. We will discontinue IV antibiotics. Patient is tolerating oral diet. Patient was seen by pulmonary and general surgery. Continue the pain medications and wound care. Surgical incision/sutures appears clean. Drain tube is in place. Possible discharge back to extended care facility in the next 24-48 hours. Time with Patient: Greater than 30
[2019-06-14] MEDS: MORPHINE SULFATE 4 MG/ML SYRINGE IVP PRN (00:05)
[2019-06-14 03:04] LABS: Glucose,Whole Blood 92 mg/dL (75-99)
[2019-06-14] MEDS: SODIUM CHLORIDE 0.9% 1,000 ML IV SCH ×2 (06:06→22:57)
[2019-06-14 06:18] LABS: Glucose,Whole Blood 103 mg/dL (75-99)
[2019-06-14] MEDS: LEVOFLOXACIN 750 MG TAB PO SCH (06:25)
[2019-06-14] MEDS: INSULIN ASPART (NovoLOG) 100 UNIT/ML VIAL SQ SCH ×10 (06:25→19:58)
[2019-06-14] MEDS: CARVEDILOL 3.125 MG TAB PO SCH ×2 (06:25→17:33)
[2019-06-14 10:50] LABS: Anisocytosis Slight; HCT 28.6 % (34.0-46.0); HGB 9.2 gm/dL (11.4-16.0); Hypochromasia Slight; MCH 29.8 pg (25.0-35.0); MCV 93.3 fL (80.0-100.0); Mean Platelet Volume 6.9; Platelet Count 302 k/uL (150-450); RBC 3.07 m/uL (3.80-5.40); RDW 16.3 % (11.5-15.5); WBC 4.7 k/uL (3.8-10.6)
[2019-06-14 10:59] LABS: Calcium 7.4 mg/dL (8.4-10.2); Potassium 4.4 mmol/L (3.5-5.1)
[2019-06-14] MEDS: FUROSEMIDE 10 MG/ML 4 ML VIAL IV SCH (11:02)
[2019-06-14] MEDS: CALCIUM ACETATE 667 MG TAB PO SCH (11:02)
[2019-06-14] MEDS: APIXABAN 2.5 MG TABLET PO SCH ×2 (11:02→19:47)
[2019-06-14] MEDS: CALCIUM CARB-VIT D 500MG-200UN 1 EACH TAB PO SCH (11:02)
[2019-06-14] MEDS: MAGNESIUM OXIDE 400 MG TAB PO SCH ×2 (11:02→19:47)
[2019-06-14] MEDS: traMADol 50 MG TAB PO SCH ×4 (11:02→22:56)
[2019-06-14] MEDS: MULTIVITAMINS, THERA 1 EACH TAB PO SCH (11:02)
[2019-06-14] MEDS: MESALAMINE 400 MG PO SCH ×2 (11:03→19:39)
[2019-06-14] MEDS: PIPERACILLIN-TAZOBACTAM 3.375 GM in SODIUM CHLORIDE 0.9% 100 ML IVPB SCH (11:03)
[2019-06-14] MEDS ORDERED: ONDANSETRON 4 MG/2 ML VIAL IVP PRN (11:37)
--- NOTE | 2019-06-14 11:40 | P.PN ---
Subjective Progress Note Date: 06/14/19 Principal diagnosis: Abdominal pain Patient complaining of mild nausea today. Ostomy still functioning however. The pain around her ostomy site is improved. T-max 100.1. Objective - Vital Signs Vital signs: Vital Signs Temp 97.8 F 06/14/19 08:00 Pulse 101 H 06/14/19 08:00 Resp 18 06/14/19 08:00 BP 94/57 06/14/19 08:00 Pulse Ox 99 06/14/19 08:00 Intake & Output 06/13/19 06/14/19 06/14/19 18:59 06:59 18:59 Intake Total 1980 Output Total 990 2170 90 Balance 990 -2170 -90 Weight 76 kg Intake: IV 420 Piperacillin-Tazobactam 3 200 .375 gm In Sodium Chloride 0.9% 100 ml @ 25 mls/hr IVPB Q8HR [facility] Rx# :[id number] Sodium Chloride 0.9% 1, 220 000 ml @ 20 mls/hr IV . Q24H [facility] Rx#:[id number] Oral 1560 Output: Drainage 290 270 90 Right Abdomen 290 270 90 Urine 450 1900 Stool 250 Other: Voiding Method Indwelling Catheter Indwelling Catheter Indwelling Catheter # Voids 1 # Bowel Movements 100 - Exam Abdomen: Soft, nondistended, incision clean and dry, excoriation beneath new ostomy incision improving - Labs CBC & Chem 7: 06/14/19 10:16 06/14/19 10:16 Labs: Abnormal Lab Results - Last 24 Hours (Table) 06/13/19 06/13/19 06/13/19 Range/Units 11:46 16:43 19:52 RBC (3.80-5.40) m/uL Hgb (11.4-16.0) gm/dL Hct (34.0-46.0) % RDW (11.5-15.5) % BUN (7-17) mg/dL Creatinine (0.52-1.04) mg/dL Glucose (74-99) mg/dL POC Glucose (mg/dL) 253 H 207 H 137 H (75-99) mg/dL Calcium (8.4-10.2) mg/dL 06/14/19 06/14/19 06/14/19 Range/Units 06:17 10:16 10:16 RBC 3.07 L (3.80-5.40) m/uL Hgb 9.2 L (11.4-16.0) gm/dL Hct 28.6 L (34.0-46.0) % RDW 16.3 H (11.5-15.5) % BUN 43 H (7-17) mg/dL Creatinine 1.58 H (0.52-1.04) mg/dL Glucose 151 H (74-99) mg/dL POC Glucose (mg/dL) 103 H (75-99) mg/dL Calcium 7.4 L (8.4-10.2) mg/dL Microbiology - Last 24 Hours (Table) 06/12/19 05:26 Blood Culture - Preliminary Blood No Growth after 48 hours Assessment and Plan (1) Parastomal hernia Narrative/Plan: Continue diet as tolerated. Will add Reglan for nausea. Ambulate. Will follow. Current Visit: Yes Status: Acute Code(s): K43.5 - PARASTOMAL HERNIA WITHOUT OBSTRUCTION OR GANGRENE SNOMED Code(s): 079390896
[2019-06-14 11:42] LABS: Glucose,Whole Blood 140 mg/dL (75-99)
--- NOTE | 2019-06-14 12:05 | P.PN ---
Subjective Progress Note Date: 06/14/19 This is a 73-year-old obese female with a past medical history significant for persistent atrial fibrillation, known severe ischemic cardiomyopathy with an EF less than 20%, type 2 diabetes, hypertension, dyslipidemia, and recent abdominal surgery who presented with concerns for possible pneumonia. She is a patient of Dr. Steel and resides at a long-term care facility. Patient is a somewhat poor historian so her history was taken from the chart. Patient was transferred here from [place] with complaints of worsening cough for the last 2 days. She was started on antibiotics. We've been consulted because she has borderline abnormal troponins. Her EKG showed rapid atrial tachycardia/atrial fibrillation with rapid ventricular response, rate 106. She has been on carvedilol 3.125 twice a day and her rates have been mostly in the 80s with a few episodes up to the low 100s overnight. Patient seen and examined resting comfortably in bed. Complains of some abdominal pain. No chest pain, shortness of breath, palpitations or dizzine 06/13: Patient is being rechecked today in follow-up regarding elevated troponins. Initial troponin 0.110 and repeat 0.086. community leader reveals atrial fibrillation with controlled rate. Heart rate is in the low 100s. Blood pressure 115/79 pulse ox 98% on 2 L nasal cannula. Chest x-ray from last exam reveals similar overall lung inflation pattern. No new process. Maintain current medications. No plan for heart catheterization at this time. This morning she had a low blood glucose and given dextrose 10% per protocol. This has been addressed by primary. 06/14: The patient has been in atrial fibrillation running in the 90s. Patient denies having any palpitations, chest pain or shortness of breath. She states she ate a good breakfast this morning. Repeat lab work reveals white count 4.7, hemoglobin 9.2. BUN 43 and creatinine 1.58. No medication changes will be made. Gen: This is a 73-year-old female. She is resting in bed and appears to be comfortable. Patient is very talkative. Afebrile, 101, blood pressure 94/57, pulse ox 99% on room air HEENT: Head is atraumatic, normocephalic. Pupils equal, round. Sclerae is anicteric. NECK: Supple. No JVD. No lymphadenopathy. No thyromegaly. LUNGS: Clear to auscultation. No wheezes or rhonchi. No intercostal retractions. HEART: Irregularly irregular rate and rhythm. No murmur. ABDOMEN: Soft. Bowel sounds are present. No masses. No tenderness. EXTREMITIES: trace pedal edema. No calf tenderness. NEUROLOGICAL: Patient is awake, alert and oriented. Assessment: Severe ischemic cardiomyopathy, EF less than 20% Persistent atrial fibrillation, rate fairly well controlled, anticoagulated with eliquis Abnormal troponins likely secondary to combination of atrial fibrillation with RVR and underlying severe ischemic cardiomyopathy History of severe bradycardia on high doses of amiodarone and metoprolol Hypertension, blood pressure stable Dyslipidemia Recent exploratory laparotomy, lysis of lesions, repair of parastomal hernia, partial colectomy and partial omentectomy and repair of incisional hernia Plan: Continue rate control with carvedilol 3.125 twice a day, hold off on increasing beta blockers as the patient has a history of severe bradycardia Continue anticoagulation with eliquis Continue atorvastatin Further recommendations to follow based upon clinical course. Nurse practitioner note has been reviewed, I agree with documented findings and plan of care. Patient was seen and examined. Objective - Vital Signs Vital signs: Vital Signs Temp 97.8 F 06/14/19 08:00 Pulse 101 H 06/14/19 08:00 Resp 18 06/14/19 08:00 BP 94/57 06/14/19 08:00 Pulse Ox 99 06/14/19 08:00 Intake & Output 06/13/19 06/14/19 06/14/19 18:59 06:59 18:59 Intake Total 1980 Output Total 990 2170 90 Balance 990 -2170 -90 Weight 76 kg Intake: IV 420 Piperacillin-Tazobactam 3 200 .375 gm In Sodium Chloride 0.9% 100 ml @ 25 mls/hr IVPB Q8HR [facility] Rx# :[id number] Sodium Chloride 0.9% 1, 220 000 ml @ 20 mls/hr IV . Q24H [facility] Rx#:[id number] Oral 1560 Output: Drainage 290 270 90 Right Abdomen 290 270 90 Urine 450 1900 Stool 250 Other: Voiding Method Indwelling Catheter Indwelling Catheter Indwelling Catheter # Voids 1 # Bowel Movements 100 - Labs CBC & Chem 7: 06/14/19 10:16 06/14/19 10:16 Labs: Abnormal Lab Results - Last 24 Hours (Table) 06/13/19 06/13/19 06/13/19 Range/Units 11:46 16:43 19:52 POC Glucose (mg/dL) 253 H 207 H 137 H (75-99) mg/dL 06/14/19 Range/Units 06:17 POC Glucose (mg/dL) 103 H (75-99) mg/dL Microbiology - Last 24 Hours (Table) 06/12/19 05:26 Blood Culture - Preliminary Blood No Growth after 48 hours
--- NOTE | 2019-06-14 12:15 | P.PN ---
Subjective Progress Note Date: 06/14/19 Principal diagnosis: Acute exacerbation of chronic systolic congestive heart failure This is a pleasant 73-year-old female patient who resides at [facility]. She has a history of nonischemic cardiomyopathy with a baseline ejection fraction of 20-25%, chronic systolic congestive heart failure, chronic atrial fibrillation anticoagulated with Eliquis, mild developmental delay, hypertension, hyperlipidemia, bowel resection and colostomy, hypothyroidism, type 2 diabetes. She was just discharged from here on 06/10/2019 to an extended care facility after being hospitalized with symptomatic bradycardia, recovered without permanent pacemaker implantation, and significant excoriation around her ostomy site. She had undergone surgery with a new ostomy placement on 06/03/2019. She was returned to [facility] yesterday with complaints of increasing shortness of breath, cough and congestion. X-ray showed elevation of the hemidiaphragms consistent with low lung inflation and small pleural effusions left greater than right. No new processes compared to June 08 x-ray. White count 5.2. Hemoglobin 10.1. Creatinine 1.63. Troponin 0.110, 0.086. ProBNP 39,000. He was readmitted to the selective care unit. She is seen today in consultation. She is awake and alert in no acute distress. Resting quite flat in bed. She is afebrile. Maintaining good O2 saturations in the upper 90s on 2 L/m per nasal cannula. Hemodynamically stable. Atrial fibrillation/flutter. She remains on Eliquis. Patient was reevaluated today on 06/14/2019, had slight nausea earlier today, denies any abdominal pain, denies any shortness of breath, no cough, no wheezing, she had a T-max of 100.1 yesterday. CBC is relatively unremarkable hemoglobin is 9.2 electrolytes are normal BUN is 43 creatinine is 1.58. Down from 1.63 yesterday in spite of diuretics. Objective - Vital Signs Vital signs: Vital Signs Temp 97.8 F 06/14/19 08:00 Pulse 101 H 06/14/19 08:00 Resp 18 06/14/19 08:00 BP 94/57 06/14/19 08:00 Pulse Ox 99 06/14/19 08:00 Intake & Output 06/13/19 06/14/19 06/14/19 18:59 06:59 18:59 Intake Total 1980 Output Total 990 2170 90 Balance 990 -2170 -90 Weight 76 kg Intake: IV 420 Piperacillin-Tazobactam 3 200 .375 gm In Sodium Chloride 0.9% 100 ml @ 25 mls/hr IVPB Q8HR [facility] Rx# :[id number] Sodium Chloride 0.9% 1, 220 000 ml @ 20 mls/hr IV . Q24H [facility] Rx#:[id number] Oral 1560 Output: Drainage 290 270 90 Right Abdomen 290 270 90 Urine 450 1900 Stool 250 Other: Voiding Method Indwelling Catheter Indwelling Catheter Indwelling Catheter # Voids 1 # Bowel Movements 100 - Exam GENERAL EXAM: Alert, pleasant, 73-year-old female patient, pleasant, in no distress. On room air at present HEENT: PERRLA, EOMI, neck disc, dry mucous membranes. Throat is clear.. CHEST: No chest wall deformity. Symmetrical expansion. LUNGS: Slightly diminished breath sounds at the left base, no rhonchi and no wheezes no crackles today. CVS: Irregular rate and rhythm, normal S1 and S2, no gallops, no murmurs, no rubs ABDOMEN: Soft, left lower quadrant ostomy. No hepatosplenomegaly, normal bowel sounds, no guarding or rigidity. EXTREMITIES: No clubbing, no edema, no cyanosis, 2+ pulses and upper and lower extremities. MUSCULOSKELETAL: Muscle strength and tone normal. SPINE: No scoliosis or deformity SKIN: No rashes CENTRAL NERVOUS SYSTEM: Alert and oriented 3, no gross focal neurologic deficit. PSYCHIATRIC: Normal mood affect and normal mental status examination - Labs CBC & Chem 7: 06/14/19 10:16 06/14/19 10:16 Labs: Abnormal Lab Results - Last 24 Hours (Table) 06/13/19 06/13/19 06/14/19 Range/Units 16:43 19:52 06:17 RBC (3.80-5.40) m/uL Hgb (11.4-16.0) gm/dL Hct (34.0-46.0) % RDW (11.5-15.5) % BUN (7-17) mg/dL Creatinine (0.52-1.04) mg/dL Glucose (74-99) mg/dL POC Glucose (mg/dL) 207 H 137 H 103 H (75-99) mg/dL Calcium (8.4-10.2) mg/dL 06/14/19 06/14/19 06/14/19 Range/Units 10:16 10:16 11:33 RBC 3.07 L (3.80-5.40) m/uL Hgb 9.2 L (11.4-16.0) gm/dL Hct 28.6 L (34.0-46.0) % RDW 16.3 H (11.5-15.5) % BUN 43 H (7-17) mg/dL Creatinine 1.58 H (0.52-1.04) mg/dL Glucose 151 H (74-99) mg/dL POC Glucose (mg/dL) 140 H (75-99) mg/dL Calcium 7.4 L (8.4-10.2) mg/dL Microbiology - Last 24 Hours (Table) 06/12/19 05:26 Blood Culture - Preliminary Blood No Growth after 48 hours Assessment and Plan Assessment: #1 Acute exacerbation of chronic systolic congestive heart failure in a patient with known nonischemic cardiomyopathy ejection fraction 20-25%. #2 Acute hypoxic respiratory failure secondary to above him a no clear evidence of pneumonia. No fever. No leukocytosis. #3 Recent hospitalization for severe symptomatic bradycardia requiring temporary pacemaker. No permanent pacemaker placed. Medications adjusted. #4 Recent hospitalization for extensive excoriation around the ostomy site status post new ostomy site, viable. #5 Chronic right lower extremity wound suspect diabetic ulcer area #6 Diabetes mellitus, type II. #7 Hypothyroidism. #8 Chronic persistent atrial fibrillation, anticoagulated with Eliquis. #9 Hypertension. #10 Hyperlipidemia. Recommendation: Continue present course of treatment, would recommend discontinue Levaquin, continue Zosyn, again no clear-cut evidence of pneumonia at this point. Continue cardiac meds and diuretics. And continue to monitor fluid status and electrolytes on a daily basis. Long-term prognosis remains e xtremely poor considering her severe LV dysfunction. Started the patient yesterday on 40 mg of Lasix daily. We'll continue to follow Time with Patient: Less than 30
[2019-06-14] MEDS: METOCLOPRAMIDE 5 MG/ML 2 ML VIAL IVP SCH ×3 (12:18→22:56)
[2019-06-14] MEDS: BACITRACIN 500 UNIT/GM OINT 28.4 GM TUBE TOPICAL SCH ×2 (12:20→19:47)
[2019-06-14 17:16] LABS: Glucose,Whole Blood 190 mg/dL (75-99)
[2019-06-14] MEDS: FAMOTIDINE 20 MG/2 ML VIAL IV SCH ×2 (17:38→19:47)
[2019-06-14] MEDS: ATORVASTATIN 10 MG TAB PO SCH (19:47)
[2019-06-14 19:50] LABS: Glucose,Whole Blood 263 mg/dL (75-99)
[2019-06-14] MEDS: INSULIN DETEMIR (LEVEMIR) 100 UNIT/ML SYR SQ SCH (19:58)
--- NOTE | 2019-06-14 23:31 | P.PN ---
Subjective Progress Note Date: 06/14/19 Principal diagnosis: Mildly elevated troponin level Shortness of breath Abdominal pain at the site of skin excoriation below the colostomy. Patient is a 72-year-old female with known history of chronic atrial fibrillation on anticoagulation with Eliquis, recent history of bradycardia requiring transvenousby replacement -amiodarone and metoprolol discontinued, CHF with systolic heart failure/nonischemic cardio myopathy, hypertension, hyperlipidemia, inflammatory bowel disease and hypothyroidism as well as diabetes type2 was initially transferred to [facility] from [facility] care facility due to concern for pneumonia. Workup at the outside facility reportedly revealed patient to have pneumonia and also minimally elevated troponin. Patient transferred here for further care. History from the patient reveals a cough that is been worsening over 1-2 days. Minimal sputum production.. Patient complains of some bilateral rib pain when she coughs otherwise no chest pain. Patient did receive Zosyn 3.375 g, albuterol 1 treatment, and aspirin 325 mg at the transferring facility. Chest x-ray showed no new changes. Patient does have chronic left lower lobe infiltrate-like changes. Patient has been afebrile. Leukocytosis. Patient was discharged from the hospital on 06/10/2019. Troponin 0.110 and 0.086 No leukocytosis. Patient has been afebrile. 06/13/2019 Patient says that she feels better today. No fever no chills. Patient was seen by pulmonary. Unlikely pneumonia. Patient was also seen by general surgery and bacitracin ointment was applied at the skin excoriation site on the abdomen. Ostomy is functioning very well. Serositis pain is from the drain tube. Patient says that her abdominal pain is better. Tolerating oral diet. No chest pain or shortness of. Patient is being continued on Coreg 3.125 mg twice daily. Anticipate discharged to rehab on Saturday. 06/14/2019 Patient denied any complaints of chest pain or shortness of breath. Abdominal pain improved. Patient is nauseated this morning. Otherwise tolerating oral diet. Patient is currently afebrile. T-max was 100.1 yesterday. Antibiotics will be discontinued. No evidence of pneumonia. No leukocytosis. Continue to monitor for any other source of infection. Pulmonary is following. Patient is being continued on Coreg for heart rate control and also on Lasix. Renal function is stable. Current medications reviewed. Active Medications Apixaban (Eliquis) 2.5 mg PO BID [facility] Last Admin: 06/13/19 19:53 Dose: 2.5 mg Documented by: Atorvastatin Calcium (Lipitor) 10 mg PO [facility] Last Admin: 06/13/19 19:53 Dose: 10 mg Documented by: Bacitracin (Bacitracin Oint) 1 applic TOPICAL BID [facility] Last Admin: 06/13/19 19:56 Dose: 1 applic Documented by: Calcium Acetate (Phoslo) 667 mg PO DAILY [facility] Last Admin: 06/13/19 10:28 Dose: 667 mg Documented by: Calcium Carbonate (Oscal 500+D) 1 each PO DAILY [facility] Last Admin: 06/13/19 10:28 Dose: 1 each Documented by: Carvedilol (Coreg) 3.125 mg PO BID-W/MEALS [facility] Last Admin: 06/13/19 17:14 Dose: 3.125 mg Documented by: Furosemide (Lasix) 40 mg IV DAILY [facility] Last Admin: 06/13/19 14:55 Dose: 40 mg Documented by: Sodium Chloride (Saline 0.9%) 1,000 mls @ 20 mls/hr IV .Q24H [facility] Last Admin: 06/13/19 06:00 Dose: 20 mls/hr Documented by: Piperacillin Sod/Tazobactam (Sod 3.375 gm/ Sodium Chloride) 100 mls @ 25 mls/hr IVPB Q8HR [facility] Stop: 06/22/19 08:01 Last Admin: 06/13/19 22:55 Dose: 25 mls/hr Documented by: Insulin Aspart (Novolog) 0 unit SQ [facility]; Protocol Last Admin: 06/13/19 19:57 Dose: 1 unit Documented by: Insulin Aspart (Novolog) 2 unit SQ ACHS [facility] Last Admin: 06/13/19 19:57 Dose: 2 unit Documented by: Insulin Detemir (Levemir) 10 unit SQ [facility] Last Admin: 06/13/19 19:52 Dose: Not Given Documented by: Levofloxacin (Levaquin) 750 mg PO Q24H [facility] Last Admin: 06/13/19 05:54 Dose: 750 mg Documented by: Magnesium Oxide (Mag-Ox) 400 mg PO BID [facility] Last Admin: 06/13/19 19:53 Dose: 400 mg Documented by: Miscellaneous Information (Pneumonia Protocol Utilized) 1 each PO ONCE PRN PRN Reason: Per Protocol Morphine Sulfate (Morphine Sulfate (Inj)) 4 mg IVP Q4HR PRN PRN Reason: Pain Last Admin: 06/13/19 14:56 Dose: 4 mg Documented by: Multivitamins (Theragran) 1 each PO DAILY [facility] Last Admin: 06/13/19 10:28 Dose: 1 each Documented by: Mesalamine 400 Mg 400 mg PO BID [facility] Last Admin: 06/13/19 19:48 Dose: Not Given Documented by: Tramadol HCl (Ultram) 50 mg PO QID [facility] Last Admin: 06/13/19 19:53 Dose: 50 mg Documented by: Objective - Vital Signs Vital signs: Vital Signs Temp 97.6 F 06/14/19 12:00 Pulse 95 06/14/19 16:00 Resp 18 06/14/19 16:00 BP 101/63 06/14/19 12:00 Pulse Ox 99 06/14/19 12:00 Intake & Output 06/13/19 06/14/19 06/14/19 18:59 06:59 18:59 Intake Total 1980 545 Output Total 990 2170 1220 Balance 990 -2170 -675 Weight 76 kg Intake: IV 420 220 Piperacillin-Tazobactam 3 200 .375 gm In Sodium Chloride 0.9% 100 ml @ 25 mls/hr IVPB Q8HR [facility] Rx# :[id number] Sodium Chloride 0.9% 1, 220 220 000 ml @ 20 mls/hr IV . Q24H [facility] Rx#:[id number] Intake, IV Titration 100 Amount Piperacillin-Tazobactam 3 100 .375 gm In Sodium Chloride 0.9% 100 ml @ 25 mls/hr IVPB Q8HR [facility] Rx# :[id number] Oral 1560 225 Output: Drainage 290 270 470 Right Abdomen 290 270 470 Urine 450 1900 750 Stool 250 Other: Voiding Method Indwelling Catheter Indwelling Catheter Indwelling Catheter # Voids 1 # Bowel Movements 100 - Exam PHYSICAL EXAMINATION: Patient is lying in the bed comfortably, no acute distress, awake alert and oriented.. HEENT: Normocephalic. Neck is supple. Pupils reactive. Nostrils clear. Oral cavity is moist. Ears reveal no drainage. Neck reveals no JVD, carotid bruits, or thyromegaly. CHEST EXAMINATION: Trachea is central. Symmetrical expansion. Bibasilar crackles and diminished sounds. Otherwise Lung dior clear to auscultation and percussion. CARDIAC: Normal S1, S2 with no gallops. No murmurs . Atrial fibrillation. ABDOMEN: Soft. Left-sided abdominal wall skin excoriation. Ostomy bag in place above this. Bowel sounds normal. No organomegaly. No abdominal bruits. Surgical incision is clean. Extremities: reveal no edema. No clubbing or cyanosis Neurologically awake, alert, oriented x3 with well-coordinated movements. No focal deficits noted Skin: No rash or skin lesions. Psychiatric: Coperative. Nonsuicidal Musculoskeletal: No joint swelling or deformity. Normal range of motion. - Labs CBC & Chem 7: 06/14/19 10:16 06/14/19 10:16 Labs: Abnormal Lab Results - Last 24 Hours (Table) 06/13/19 06/14/19 06/14/19 Range/Units 19:52 06:17 10:16 RBC 3.07 L (3.80-5.40) m/uL Hgb 9.2 L (11.4-16.0) gm/dL Hct 28.6 L (34.0-46.0) % RDW 16.3 H (11.5-15.5) % BUN (7-17) mg/dL Creatinine (0.52-1.04) mg/dL Glucose (74-99) mg/dL POC Glucose (mg/dL) 137 H 103 H (75-99) mg/dL Calcium (8.4-10.2) mg/dL 06/14/19 06/14/19 Range/Units 10:16 11:33 RBC (3.80-5.40) m/uL Hgb (11.4-16.0) gm/dL Hct (34.0-46.0) % RDW (11.5-15.5) % BUN 43 H (7-17) mg/dL Creatinine 1.58 H (0.52-1.04) mg/dL Glucose 151 H (74-99) mg/dL POC Glucose (mg/dL) 140 H (75-99) mg/dL Calcium 7.4 L (8.4-10.2) mg/dL Microbiology - Last 24 Hours (Table) 06/12/19 05:26 Blood Culture - Preliminary Blood No Growth after 48 hours Assessment and Plan Assessment: Mildly elevated troponin level likely due to cardiomyopathy and A. fib with elevated heart rate. Symptomatic bradycardia during recent admission. due to high doses of amiodarone and metoprolol. Status post transvenous pacemaker. Continue with Coreg 3.125 mg twice a day. Heart rate is currently in 80s.. Left lower lobe chronic infiltrates like changes. Unlikely pneumonia.. Para stomal hernia. Status post exploratory laparotomy and repair and colostomy revision. Abdominal pain mainly burning sensation over the skin excoriation. acute on chronic kidney disease stage III. Creatinine level 1.63 chronic CHF with systolic dysfunction. On Lasix at home.. Chronic Persistent Atrial fibrillation. Patient was bradycardic on admission.. On anticoagulation with Eliquis. Metoprolol and amiodarone on hold Hypoglycemia likely due to insulin at home. Diabetes type 2 insulin-dependent Hypertension Hyperlipidemia Nonischemic cardiomyopathy Hypothyroidism History of colectomy and colostomy. Inflammatory bowel disease. Plan: Patient will be continued on current management with Coreg 3.125 mg twice daily. Cardiology has seen the patient and troponins no intervention at this time. We will discontinue IV antibiotics. Patient is tolerating oral diet. Patient was seen by pulmonary and general surgery. Continue the pain medications and wound care. Surgical incision/sutures appears clean. Drain tube is in place. Possible discharge back to extended care facility in the next 24-48 hours. Time with Patient: Greater than 30
[2019-06-15 06:16] LABS: Glucose,Whole Blood 173 mg/dL (75-99)
[2019-06-15] MEDS: INSULIN ASPART (NovoLOG) 100 UNIT/ML VIAL SQ SCH ×8 (06:24→20:54)
[2019-06-15] MEDS: METOCLOPRAMIDE 5 MG/ML 2 ML VIAL IVP SCH ×4 (06:24→23:01)
[2019-06-15] MEDS: CARVEDILOL 3.125 MG TAB PO SCH ×2 (06:24→17:40)
[2019-06-15 06:44] LABS: Calcium 7.6 mg/dL (8.4-10.2); Potassium 4.2 mmol/L (3.5-5.1)
[2019-06-15 06:46] LABS: Anisocytosis Slight; HCT 29.2 % (34.0-46.0); HGB 9.4 gm/dL (11.4-16.0); MCH 29.8 pg (25.0-35.0); MCHC 32.2 g/dL (31.0-37.0); MCV 92.6 fL (80.0-100.0); Mean Platelet Volume 7.9; Platelet Count 333 k/uL (150-450); RBC 3.16 m/uL (3.80-5.40); RDW 16.5 % (11.5-15.5); WBC 4.5 k/uL (3.8-10.6)
[2019-06-15 07:13] LABS: Eosinophils # (M) 0.09 k/uL (0-0.7); Lymphocytes # (M) 1.98 k/uL (1.0-4.8); Monocytes # (M) 0.45 k/uL (0-1.0); Neutrophils % (M) 44 %; Nucleated Red Blood Cells 0 /100 WBC (0-0); Total Cells Counted 100
[2019-06-15] MEDS: MAGNESIUM OXIDE 400 MG TAB PO SCH ×2 (09:22→20:55)
[2019-06-15] MEDS: traMADol 50 MG TAB PO SCH ×4 (09:22→20:55)
[2019-06-15] MEDS: CALCIUM CARB-VIT D 500MG-200UN 1 EACH TAB PO SCH (09:23)
[2019-06-15] MEDS: FAMOTIDINE 20 MG/2 ML VIAL IV SCH (09:23)
[2019-06-15] MEDS: CALCIUM ACETATE 667 MG TAB PO SCH (09:23)
[2019-06-15] MEDS: APIXABAN 2.5 MG TABLET PO SCH ×2 (09:23→20:53)
[2019-06-15] MEDS: BACITRACIN 500 UNIT/GM OINT 28.4 GM TUBE TOPICAL SCH ×2 (09:23→20:53)
[2019-06-15] MEDS: MULTIVITAMINS, THERA 1 EACH TAB PO SCH (09:23)
[2019-06-15] MEDS: FUROSEMIDE 10 MG/ML 4 ML VIAL IV SCH (09:23)
[2019-06-15] MEDS: MESALAMINE 400 MG PO SCH ×2 (09:24→20:47)
--- NOTE | 2019-06-15 10:25 | P.PN ---
Subjective Progress Note Date: 06/15/19 Patient is a 73-year-old female with a past medical history significant for persistent atrial fibrillation, known severe ischemic cardiomyopathy with an EF less than 20%, type 2 diabetes, hypertension, dyslipidemia, and recent abdominal surgery who presented with concerns for possible pneumonia. She is a patient of Dr. Steel and resides at a long-term care facility. Patient is a somewhat poor historian so her history was taken from the chart. Patient was transferred here from [place] with complaints of worsening cough for the last 2 days or to her admission here. Cardiology was consulted because of abnormality in troponin, patient at this time continues to be on IV diuretics, continues to be in A. fib her rate is under better control today. At the time of my examination this morning she does complain of some nausea, she did not have an episode of vomiting this morning. I have requested a repeat chest x-ray be performed this morning. Objective - Vital Signs Vital signs: Vital Signs Temp 99.2 F 06/15/19 03:11 Pulse 105 H 06/15/19 03:15 Resp 18 06/15/19 03:15 BP 109/72 06/15/19 03:11 Pulse Ox 99 06/15/19 03:11 Intake & Output 06/14/19 06/15/19 06/15/19 18:59 06:59 18:59 Intake Total 1325 240 Output Total 2570 420 Balance -1245 -420 240 Weight 61.5 kg Intake: IV 220 Sodium Chloride 0.9% 1, 220 000 ml @ 20 mls/hr IV . Q24H [facility] Rx#:[id number] Intake, IV Titration 100 Amount Piperacillin-Tazobactam 3 100 .375 gm In Sodium Chloride 0.9% 100 ml @ 25 mls/hr IVPB Q8HR [facility] Rx# :[id number] Oral 1005 240 Output: Drainage 570 120 Right Abdomen 570 120 Urine 2000 300 Other: Voiding Method Indwelling Catheter Indwelling Catheter # Bowel Movements 1 - Exam GENERAL EXAM: Alert, pleasant, 73-year-old female patient, pleasant, in no distress. On room air at present HEENT: PERRLA, EOMI, neck disc, dry mucous membranes. Throat is clear.. CHEST: No chest wall deformity. Symmetrical expansion. LUNGS: Slightly diminished breath sounds at the left base, no rhonchi and no wheezes no crackles today. CVS: Irregular rate and rhythm, normal S1 and S2, no gallops, no murmurs, no rubs ABDOMEN: Soft, left lower quadrant ostomy. No hepatosplenomegaly, normal bowel sounds, no guarding or rigidity. EXTREMITIES: No clubbing, no edema, no cyanosis, 2+ pulses and upper and lower extremities. MUSCULOSKELETAL: Muscle strength and tone normal. SPINE: No scoliosis or deformity SKIN: No rashes CENTRAL NERVOUS SYSTEM: Alert and oriented 3, no gross focal neurologic deficit. PSYCHIATRIC: Normal mood affect and normal mental status examination - Labs CBC & Chem 7: 06/15/19 05:40 06/15/19 05:40 Labs: Abnormal Lab Results - Last 24 Hours (Table) 06/14/19 06/14/19 06/14/19 Range/Units 10: 10:16 11:33 RBC 3.07 L (3.80-5.40) m/uL Hgb 9.2 L (11.4-16.0) gm/dL Hct 28.6 L (34.0-46.0) % RDW 16.3 H (11.5-15.5) % BUN 43 H (7-17) mg/dL Creatinine 1.58 H (0.52-1.04) mg/dL Glucose 151 H (74-99) mg/dL POC Glucose (mg/dL) 140 H (75-99) mg/dL Calcium 7.4 L (8.4-10.2) mg/dL 06/14/19 06/14/19 06/15/19 Range/Units 16:34 19:49 05:40 RBC 3.16 L (3.80-5.40) m/uL Hgb 9.4 L (11.4-16.0) gm/dL Hct 29.2 L (34.0-46.0) % RDW 16.5 H (11.5-15.5) % BUN (7-17) mg/dL Creatinine (0.52-1.04) mg/dL Glucose (74-99) mg/dL POC Glucose (mg/dL) 190 H 263 H (75-99) mg/dL Calcium (8.4-10.2) mg/dL 06/15/19 06/15/19 Range/Units 05:40 06:14 RBC (3.80-5.40) m/uL Hgb (11.4-16.0) gm/dL Hct (34.0-46.0) % RDW (11.5-15.5) % BUN 52 H (7-17) mg/dL Creatinine 1.54 H (0.52-1.04) mg/dL Glucose 163 H (74-99) mg/dL POC Glucose (mg/dL) 173 H (75-99) mg/dL Calcium 7.6 L (8.4-10.2) mg/dL Microbiology - Last 24 Hours (Table) 06/12/19 05:26 Blood Culture - Preliminary Blood No Growth after 72 hours Assessment and Plan Plan: Assessment and plan #1 Acute exacerbation of chronic systolic congestive heart failure in a patient with known nonischemic cardiomyopathy ejection fraction 20-25%. #2 Acute hypoxic respiratory failure secondary to above him a no clear evidence of pneumonia. No fever. No leukocytosis. #3 Recent hospitalization for severe symptomatic bradycardia requiring temporary pacemaker. No permanent pacemaker placed. Medications adjusted. #4 Recent hospitalization for extensive excoriation around the ostomy site status post new ostomy site, viable. #5 Chronic right lower extremity wound suspect diabetic ulcer area #6 Diabetes mellitus, type II. #7 Hypothyroidism. #8 Chronic persistent atrial fibrillation, anticoagulated with Eliquis. #9 Hypertension. #10 Hyperlipidemia. #11 severe non - ischemic cardiomyopathy with documented ejection fraction of less than 20% Plan We will continue with current dose of IV Lasix, repeat chest x-ray this morning. Continue Eliquis for anticoagulation, Coreg 3.125 mg by mouth twice a day. We will also add a small dose of JONAH inhibitor monitoring renal function and potassium closely. DNP note has been reviewed, I agree with a documented findings and plan of care. Patient was seen and examined.
[2019-06-15 11:28] LABS: Glucose,Whole Blood 142 mg/dL (75-99)
--- NOTE | 2019-06-15 12:07 | P.PN ---
<Ofelia Correa - Last Filed: 06/15/19 11:59> Subjective Progress Note Date: 06/15/19 CHIEF COMPLAINT: Recent exploratory laparotomy HISTORY OF PRESENT ILLNESS: Patient examined this morning at the bedside. She denies abdominal pain. She reports eating cereal and juice this morning. Complains of mild nausea. No vomiting. Ostomy with stool present. PHYSICAL EXAM: VITAL SIGNS: Reviewed. GENERAL: Well-developed in no acute distress. HEENT: No sclera icterus. Extraocular movements grossly intact. Moist buccal mucosa. Head is atraumatic, normocephalic. ABDOMEN: Soft. Nondistended. Nontender. Ostomy with stool present. Dressing clean dry intact. LIOR drain with serosanguineous drainage NEUROLOGIC: Alert and oriented. Cranial nerves II through XII grossly intact. ASSESSMENT: 1. Recent exploratory laparotomy, lysis of adhesions, repair of parastomal hernia, partial colectomy, partial omentectomy, and repair of incisional hernia, 06/03/2019 PLAN: 1. Continue diet as tolerated 2. Continue anti-emetics 3. Continue bacitracin to skin excoriation left lower quadrant. Nurse practitioner note has been reviewed by physician. Signing provider agrees with the documented findings, assessment, and plan of care. Objective - Vital Signs Vital signs: Vital Signs Temp 98.6 F 06/15/19 08:00 Pulse 100 06/15/19 08:00 Resp 18 06/15/19 03:15 BP 102/53 06/15/19 08:00 Pulse Ox 99 06/15/19 08:00 Intake & Output 06/14/19 06/15/19 06/15/19 18:59 06:59 18:59 Intake Total 1325 240 Output Total 2570 420 140 Balance -1245 -420 100 Weight 61.5 kg Intake: IV 220 Sodium Chloride 0.9% 1, 220 000 ml @ 20 mls/hr IV . Q24H [facility] Rx#:[id number] Intake, IV Titration 100 Amount Piperacillin-Tazobactam 3 100 .375 gm In Sodium Chloride 0.9% 100 ml @ 25 mls/hr IVPB Q8HR [facility] Rx# :[id number] Oral 1005 240 Output: Drainage 570 120 140 Right Abdomen 570 120 140 Urine 2000 300 Other: Voiding Method Indwelling Catheter Indwelling Catheter Indwelling Catheter # Bowel Movements 1 - Labs CBC & Chem 7: 06/15/19 05:40 06/15/19 05:40 Labs: Abnormal Lab Results - Last 24 Hours (Table) 06/14/19 06/14/19 06/15/19 Range/Units 16:34 19:49 05:40 RBC 3.16 L (3.80-5.40) m/uL Hgb 9.4 L (11.4-16.0) gm/dL Hct 29.2 L (34.0-46.0) % RDW 16.5 H (11.5-15.5) % BUN (7-17) mg/dL Creatinine (0.52-1.04) mg/dL Glucose (74-99) mg/dL POC Glucose (mg/dL) 190 H 263 H (75-99) mg/dL Calcium (8.4-10.2) mg/dL 06/15/19 06/15/19 06/15/19 Range/Units 05:40 06:14 11:17 RBC (3.80-5.40) m/uL Hgb (11.4-16.0) gm/dL Hct (34.0-46.0) % RDW (11.5-15.5) % BUN 52 H (7-17) mg/dL Creatinine 1.54 H (0.52-1.04) mg/dL Glucose 163 H (74-99) mg/dL POC Glucose (mg/dL) 173 H 142 H (75-99) mg/dL Calcium 7.6 L (8.4-10.2) mg/dL Microbiology - Last 24 Hours (Table) 06/12/19 05:26 Blood Culture - Preliminary Blood No Growth after 72 hours <Som Orr - Last Filed: 06/15/19 18:10> Subjective As above. Patient somewhat confused today. Tolerating diet however. Pain seems improved. Continue local wound care. Objective - Vital Signs Vital signs: Vital Signs Temp 98.4 F 06/15/19 15:19 Pulse 104 H 06/15/19 15:19 Resp 16 06/15/19 15:19 BP 114/64 06/15/19 15:19 Pulse Ox 97 06/15/19 15:19 Intake & Output 06/14/19 06/15/19 06/15/19 18:59 06:59 18:59 Intake Total 1325 480 Output Total 2570 420 2330 Balance -1245 -420 -1850 Weight 61.5 kg Intake: IV 220 Sodium Chloride 0.9% 1, 220 000 ml @ 20 mls/hr IV . Q24H [facility] Rx#:[id number] Intake, IV Titration 100 Amount Piperacillin-Tazobactam 3 100 .375 gm In Sodium Chloride 0.9% 100 ml @ 25 mls/hr IVPB Q8HR [facility] Rx# :[id number] Oral 1005 480 Output: Drainage 570 120 330 Right Abdomen 570 120 330 Urine 2000 300 1700 Stool 300 Other: Voiding Method Indwelling Catheter Indwelling Catheter Indwelling Catheter # Bowel Movements 1 - Labs CBC & Chem 7: 06/15/19 05:40 06/15/19 05:40 Labs: Abnormal Lab Results - Last 24 Hours (Table) 06/14/19 06/15/19 06/15/19 Range/Units 19:49 05:40 05:40 RBC 3.16 L (3.80-5.40) m/uL Hgb 9.4 L (11.4-16.0) gm/dL Hct 29.2 L (34.0-46.0) % RDW 16.5 H (11.5-15.5) % BUN 52 H (7-17) mg/dL Creatinine 1.54 H (0.52-1.04) mg/dL Glucose 163 H (74-99) mg/dL POC Glucose (mg/dL) 263 H (75-99) mg/dL Calcium 7.6 L (8.4-10.2) mg/dL 06/15/19 06/15/19 06/15/19 Range/Units 06:14 11:17 17:18 RBC (3.80-5.40) m/uL Hgb (11.4-16.0) gm/dL Hct (34.0-46.0) % RDW (11.5-15.5) % BUN (7-17) mg/dL Creatinine (0.52-1.04) mg/dL Glucose (74-99) mg/dL POC Glucose (mg/dL) 173 H 142 H 233 H (75-99) mg/dL Calcium (8.4-10.2) mg/dL Microbiology - Last 24 Hours (Table) 06/12/19 05:26 Blood Culture - Preliminary Blood No Growth after 72 hours Assessment and Plan (1) Parastomal hernia Current Visit: Yes Status: Acute Code(s): K43.5 - PARASTOMAL HERNIA WITHOUT OBSTRUCTION OR GANGRENE SNOMED Code(s): 586938471
[2019-06-15] MEDS: MORPHINE SULFATE 4 MG/ML SYRINGE IVP PRN (12:41)
--- NOTE | 2019-06-15 12:58 | PN ---
PROGRESS NOTE DATE OF SERVICE: 06/15/2019 This is a 73-year-old female who was admitted back on June 12. She was admitted with a diagnosis of acute exacerbation of chronic systolic heart failure. She has a known history of nonischemic cardiomyopathy with ejection fraction of between 20%-25%. She was initially thought to have pneumonia but was determined not to. In addition, she had a recent hospitalization for severe symptomatic bradycardia requiring temporary pacemaker. The patient also has a recent history of a hospitalization for extensive excoriation around a prior ostomy site, status post status post revision with new ostomy site. The patient also has a history of chronic right lower extremity wound, diabetes mellitus, hypothyroidism, chronic persistent atrial fibrillation, hypertension, and hyperlipidemia. The patient is resting relatively comfortably today. The patient admits to a lot of pain throughout her body. She is not real specific as to where the pain is. She is also complaining of lots of nausea. When we entered the room, she had an emesis basis up to her facial area. The patient denies any difficulty breathing. There is no coughing or wheezing. No phlegm production. She states her breathing is somewhat improved. Current vital signs are reviewed. Her temperature is 98.6, T-max 99.2, heart rate 105, respiratory rate 18, blood pressure 102/53, mean 89 and saturations are 99% on 2 L. Appears in no acute distress. No conversational dyspnea or use of accessory muscles. HEENT: Examination is grossly unremarkable. Mucous membranes are moist. No oral lesions. NECK: Supple. Full range of motion. No adenopathy or thyromegaly. Neck veins are flat. CARDIOVASCULAR: Examination reveals mild tachycardia. It is irregular. Heart rate about 105 beats per minute. S1, S2 normal. LUNGS: Reveal a few scattered rhonchi. No wheezes or crackles. Breath sounds are diminished throughout. ABDOMEN: Soft, but obese. She has an ostomy bag in place. There is stool in the bag. EXTREMITIES: Intact. No cyanosis, clubbing, or edema. SKIN: Without rash. NEUROLOGIC: Examination is brief but nonfocal. Microbiologic studies include blood cultures which were negative from 06/12/2019. LABS: Reviewed. White count 4.5, hemoglobin 9.4, hematocrit 29.2, platelet count 333,000. Sodium, potassium, chloride normal. CO2 is 29, anion gap 4. BUN and creatinine were 52 and 1.54. Calcium 7.6. No recent chest x-rays to report. ASSESSMENT: 1. Acute exacerbation of chronic systolic heart failure in a patient with known nonischemic cardiomyopathy and AN ejection fraction of 20% to 25%. 2. No evidence of pneumonia based on clinical examination, history and chest x- ray. 3. Recent hospitalization for severe symptomatic bradycardia requiring temporary pacemaker placement. 4. Recent hospitalization for a revision of a previous ostomy site secondary to excoriation. 5. Chronic right lower extremity wound. 6. Diabetes mellitus, type 2. 7. Hypothyroidism. 8. Chronic persistent atrial fibrillation. 9. Hypertension. 10.Hyperlipidemia. PLAN The patient is doing reasonably well. Her primary complaints today include a primary pain throughout, although she cannot be specific anterior in terms of where the pain as well as nausea. Zofran was ordered for the nausea. Additional recommendations and suggestions are forthcoming. She is reasonably stable from the pulmonary standpoint. Antibiotics were discontinued. Will continue to follow. MMODL / IJN: [id number] / JAQUELIN
--- NOTE | 2019-06-15 13:49 | XR ---
EXAMINATION TYPE: XR chest 2V DATE OF EXAM: 06/15/2019 COMPARISON: Chest x-ray 06/12/2019 HISTORY: Follow-up congestive heart failure TECHNIQUE: Frontal and lateral views of the chest are obtained. FINDINGS: Prominent lung volumes are again noted, heart remains enlarged. There is blunting the cost ophrenic angles. No pneumothorax. There may be some improvement in the interstitium and central vascu larity. IMPRESSION: Recommend volume status. Persistent pleural effusions and associated atelectasis versus edema, correlate to exclude pneumonia. Cardiomegaly.
--- NOTE | 2019-06-15 15:35 | P.PN ---
Subjective Progress Note Date: 06/15/19 Principal diagnosis: Mildly elevated troponin level Shortness of breath Abdominal pain at the site of skin excoriation below the colostomy. Patient is a 72-year-old female with known history of chronic atrial fibrillation on anticoagulation with Eliquis, recent history of bradycardia requiring transvenousby replacement -amiodarone and metoprolol discontinued, CHF with systolic heart failure/nonischemic cardio myopathy, hypertension, hyperlipidemia, inflammatory bowel disease and hypothyroidism as well as diabetes type2 was initially transferred to [facility] from [facility] care facility due to concern for pneumonia. Workup at the outside facility reportedly revealed patient to have pneumonia and also minimally elevated troponin. Patient transferred here for further care. History from the patient reveals a cough that is been worsening over 1-2 days. Minimal sputum production.. Patient complains of some bilateral rib pain when she coughs otherwise no chest pain. Patient did receive Zosyn 3.375 g, albuterol 1 treatment, and aspirin 325 mg at the transferring facility. Chest x-ray showed no new changes. Patient does have chronic left lower lobe infiltrate-like changes. Patient has been afebrile. Leukocytosis. Patient was discharged from the hospital on 06/10/2019. Troponin 0.110 and 0.086 No leukocytosis. Patient has been afebrile. 06/13/2019 Patient says that she feels better today. No fever no chills. Patient was seen by pulmonary. Unlikely pneumonia. Patient was also seen by general surgery and bacitracin ointment was applied at the skin excoriation site on the abdomen. Ostomy is functioning very well. Serositis pain is from the drain tube. Patient says that her abdominal pain is better. Tolerating oral diet. No chest pain or shortness of. Patient is being continued on Coreg 3.125 mg twice daily. Anticipate discharged to rehab on Saturday. 06/14/2019 Patient denied any complaints of chest pain or shortness of breath. Abdominal pain improved. Patient is nauseated this morning. Otherwise tolerating oral diet. Patient is currently afebrile. T-max was 100.1 yesterday. Antibiotics will be discontinued. No evidence of pneumonia. No leukocytosis. Continue to monitor for any other source of infection. Pulmonary is following. Patient is being continued on Coreg for heart rate control and also on Lasix. Renal function is stable. Current medications reviewed. 06/15/2019 Patient is lying in bed in no acute distress. Patient states that she has been having some periods of nausea but is tolerating diet. Zofran was ordered. Patient ate all of her lunch with no difficulties. Formed brown stool noted in the colostomy bag and abdominal lizy are dry and intact. Patient states she is having some discomfort in the lower abdominal region near the surgical site. Surgery is following. Patient denies any chest pain, shortness of breath, or palpitations at this time. Patient is afebrile. No acute overnight issues. Will continue to monitor closely. Objective - Vital Signs Vital signs: Vital Signs Temp 98.6 F 06/15/19 08:00 Pulse 104 H 06/15/19 12:00 Resp 18 06/15/19 03:15 BP 110/68 06/15/19 12:00 Pulse Ox 98 06/15/19 12:00 Intake & Output 06/14/19 06/15/19 06/15/19 18:59 06:59 18:59 Intake Total 1325 480 Output Total 2570 420 1680 Balance -1245 -420 -1200 Weight 61.5 kg Intake: IV 220 Sodium Chloride 0.9% 1, 220 000 ml @ 20 mls/hr IV . Q24H [facility] Rx#:[id number] Intake, IV Titration 100 Amount Piperacillin-Tazobactam 3 100 .375 gm In Sodium Chloride 0.9% 100 ml @ 25 mls/hr IVPB Q8HR [facility] Rx# :[id number] Oral 1005 480 Output: Drainage 570 120 280 Right Abdomen 570 120 280 Urine 2000 300 1400 Other: Voiding Method Indwelling Catheter Indwelling Catheter Indwelling Catheter # Bowel Movements 1 - Exam Patient is lying in the bed comfortably, no acute distress, awake alert and oriented. Vital signs are stable. Temp is 98.6F, pulse is 100, blood pressure is 102/53, respirations are 18, oxygen saturation is 99% on room air HEENT: Normocephalic. Neck is supple. Pupils reactive. Nostrils clear. Oral cavity is moist. Ears reveal no drainage. Neck reveals no JVD, carotid bruits, or thyromegaly. CHEST EXAMINATION: Trachea is central. Symmetrical expansion. Bibasilar crackles and diminished sounds. Otherwise Lung dior clear to auscultation and percussion. CARDIAC: Normal S1, S2 with no gallops. No murmurs . Atrial fibrillation. ABDOMEN: Soft. Left-sided abdominal wall skin excoriation. Ostomy bag in place above this. Bowel sounds normal. No organomegaly. No abdominal bruits. Surgical incision is clean, dry, and intact with lizy noted Extremities: reveal no edema. No clubbing or cyanosis Neurologically awake, alert, oriented x3 with well-coordinated movements. No focal deficits noted Skin: No rash or skin lesions. Psychiatric: [id number]. Non-suicidal Musculoskeletal: No joint swelling or deformity. Normal range of motion. - Labs CBC & Chem 7: 06/15/19 05:40 06/15/19 05:40 Labs: Abnormal Lab Results - Last 24 Hours (Table) 06/14/19 06/14/19 06/15/19 Range/Units 16:34 19:49 05:40 RBC 3.16 L (3.80-5.40) m/uL Hgb 9.4 L (11.4-16.0) gm/dL Hct 29.2 L (34.0-46.0) % RDW 16.5 H (11.5-15.5) % BUN (7-17) mg/dL Creatinine (0.52-1.04) mg/dL Glucose (74-99) mg/dL POC Glucose (mg/dL) 190 H 263 H (75-99) mg/dL Calcium (8.4-10.2) mg/dL 06/15/19 06/15/19 06/15/19 Range/Units 05:40 06:14 11:17 RBC (3.80-5.40) m/uL Hgb (11.4-16.0) gm/dL Hct (34.0-46.0) % RDW (11.5-15.5) % BUN 52 H (7-17) mg/dL Creatinine 1.54 H (0.52-1.04) mg/dL Glucose 163 H (74-99) mg/dL POC Glucose (mg/dL) 173 H 142 H (75-99) mg/dL Calcium 7.6 L (8.4-10.2) mg/dL Microbiology - Last 24 Hours (Table) 06/12/19 05:26 Blood Culture - Preliminary Blood No Growth after 72 hours Assessment and Plan Assessment: Mildly elevated troponin level likely due to cardiomyopathy and A. fib with elevated heart rate. Symptomatic bradycardia during recent admission. due to high doses of amiodarone and metoprolol. Status post transvenous pacemaker. Continue with Coreg 3.125 mg twice a day. Heart rate is currently in 80s.. Left lower lobe chronic infiltrates like changes. Unlikely pneumonia.. Para stomal hernia. Status post exploratory laparotomy and repair and colostomy revision. Abdominal pain mainly burning sensation over the skin excoriation. acute on chronic kidney disease stage III. Creatinine level 1.54 chronic CHF with systolic dysfunction. On Lasix at home.. Chronic Persistent Atrial fibrillation. Patient was bradycardic on admission.. On anticoagulation with Eliquis. Metoprolol and amiodarone on hold Hypoglycemia likely due to insulin at home. Diabetes type 2 insulin-dependent Hypertension Hyperlipidemia Nonischemic cardiomyopathy Hypothyroidism History of colectomy and colostomy. Inflammatory bowel disease. Recommendations and discussion: Recommend to continue current medications, management, and symptomatic treatment. Cardiology has seen the patient and will see the patient as needed. IV antibiotics have been discontinued at this time. Patient continues with intermittent nausea but is tolerating diet at this time. Pulmonary and surgery are also following the patient. Guarded prognosis. Further recommendations to follow. Possible discharge to [facility] in 24 hours.
[2019-06-15 17:20] LABS: Glucose,Whole Blood 233 mg/dL (75-99)
[2019-06-15 20:20] LABS: Glucose,Whole Blood 324 mg/dL (75-99)
[2019-06-15] MEDS: ATORVASTATIN 10 MG TAB PO SCH (20:53)
[2019-06-15] MEDS: INSULIN DETEMIR (LEVEMIR) 100 UNIT/ML SYR SQ SCH (20:54)
[2019-06-16] MEDS: SODIUM CHLORIDE 0.9% 1,000 ML IV SCH (04:05)
[2019-06-16] MEDS: METOCLOPRAMIDE 5 MG/ML 2 ML VIAL IVP SCH ×2 (04:05→12:27)
[2019-06-16 07:01] LABS: Glucose,Whole Blood 39 mg/dL (75-99)
[2019-06-16 07:01] LABS: Glucose,Whole Blood 32 mg/dL (75-99)
[2019-06-16] MEDS: INSULIN ASPART (NovoLOG) 100 UNIT/ML VIAL SQ SCH ×3 (07:03→12:28)
[2019-06-16] MEDS ORDERED: DEXTROSE 10 % IN WATER 250 ML IV ONE (07:05)
[2019-06-16 07:10] LABS: Glucose,Whole Blood 57 mg/dL (75-99)
[2019-06-16] MEDS: FUROSEMIDE 10 MG/ML 4 ML VIAL IV SCH (07:15)
[2019-06-16] MEDS: MAGNESIUM OXIDE 400 MG TAB PO SCH (07:15)
[2019-06-16] MEDS: traMADol 50 MG TAB PO SCH ×2 (07:15→12:28)
[2019-06-16] MEDS: CALCIUM ACETATE 667 MG TAB PO SCH (07:15)
[2019-06-16] MEDS: CARVEDILOL 3.125 MG TAB PO SCH (07:16)
[2019-06-16] MEDS: MULTIVITAMINS, THERA 1 EACH TAB PO SCH (07:16)
[2019-06-16] MEDS: APIXABAN 2.5 MG TABLET PO SCH (07:16)
[2019-06-16] MEDS: CALCIUM CARB-VIT D 500MG-200UN 1 EACH TAB PO SCH (07:16)
[2019-06-16] MEDS: BACITRACIN 500 UNIT/GM OINT 28.4 GM TUBE TOPICAL SCH (07:17)
[2019-06-16] MEDS: MESALAMINE 400 MG PO SCH (07:17)
[2019-06-16 07:26] LABS: Glucose,Whole Blood 65 mg/dL (75-99)
[2019-06-16 07:29] VITALS: RESP 18
[2019-06-16 07:50] LABS: Glucose,Whole Blood 74 mg/dL (75-99)
[2019-06-16] MEDS ORDERED: FAMOTIDINE 20 MG TAB PO SCH (09:00)
[2019-06-16] MEDS ORDERED: LISINOPRIL 2.5 MG TAB PO SCH (09:00)
[2019-06-16 11:08] LABS: Calcium 8.3 mg/dL (8.4-10.2); Potassium 3.7 mmol/L (3.5-5.1)
[2019-06-16 11:42] LABS: Glucose,Whole Blood 139 mg/dL (75-99)
--- NOTE | 2019-06-16 12:36 | P.PN ---
<Ofelia Correa Humaira - Last Filed: 06/16/19 12:35> Subjective Progress Note Date: 06/16/19 CHIEF COMPLAINT: Recent exploratory laparotomy HISTORY OF PRESENT ILLNESS: Patient examined this morning at the bedside. She denies abdominal pain. Tolerating diet. Denies nausea or vomiting. Ostomy with stool present. PHYSICAL EXAM: VITAL SIGNS: Reviewed. GENERAL: Well-developed in no acute distress. HEENT: No sclera icterus. Extraocular movements grossly intact. Moist buccal mucosa. Head is atraumatic, normocephalic. ABDOMEN: Soft. Nondistended. Nontender. Ostomy with stool present. Dressing clean dry intact. LIOR drain with serosanguineous drainage NEUROLOGIC: Alert and oriented. Cranial nerves II through XII grossly intact. ASSESSMENT: 1. Recent exploratory laparotomy, lysis of adhesions, repair of parastomal hernia, partial colectomy, partial omentectomy, and repair of incisional hernia, 06/03/2019 PLAN: 1. Continue diet as tolerated 2. Continue bacitracin to skin excoriation left lower quadrant. 3. Stable for DC today from a surgical standpoint 4. Patient to follow up with Dr. Quintanilla outpatient Nurse practitioner note has been reviewed by physician. Signing provider agrees with the documented findings, assessment, and plan of care. Objective - Vital Signs Vital signs: Vital Signs Temp 97.7 F 06/16/19 07:28 Pulse 106 H 06/16/19 07:28 Resp 18 06/16/19 07:28 BP 162/83 06/16/19 07:28 Pulse Ox 97 06/16/19 07:28 Intake & Output 06/15/19 06/16/19 06/16/19 18:59 06:59 18:59 Intake Total 800 240 Output Total 2330 390 20 Balance -1530 -390 220 Intake: Oral 800 240 Output: Drainage 330 190 20 Right Abdomen 330 190 20 Urine 1700 Stool 300 200 Other: Voiding Method Indwelling Catheter Indwelling Catheter Indwelling Catheter - Labs CBC & Chem 7: 06/15/19 05:40 06/16/19 06:29 Labs: Abnormal Lab Results - Last 24 Hours (Table) 06/15/19 06/15/19 06/16/19 Range/Units 17:18 20: 06:29 Carbon Dioxide 31 H (22-30) mmol/L BUN 56 H (7-17) mg/dL Creatinine 1.53 H (0.52-1.04) mg/dL Glucose 43 L* (74-99) mg/dL POC Glucose (mg/dL) 233 H 324 H (75-99) mg/dL Calcium 8.3 L (8.4-10.2) mg/dL 06/16/19 06/16/19 06/16/19 Range/Units 06:52 06:53 07:08 Carbon Dioxide (22-30) mmol/L BUN (7-17) mg/dL Creatinine (0.52-1.04) mg/dL Glucose (74-99) mg/dL POC Glucose (mg/dL) 32 L 39 L 57 L (75-99) mg/dL Calcium (8.4-10.2) mg/dL 06/16/19 06/16/19 06/16/19 Range/Units 07:24 07:44 11:39 Carbon Dioxide (22-30) mmol/L BUN (7-17) mg/dL Creatinine (0.52-1.04) mg/dL Glucose (74-99) mg/dL POC Glucose (mg/dL) 65 L 74 L 139 H (75-99) mg/dL Calcium (8.4-10.2) mg/dL Microbiology - Last 24 Hours (Table) 06/12/19 05:26 Blood Culture - Preliminary Blood No Growth after 96 hours <oSm Orr - Last Filed: 06/16/19 14:26> Subjective Patient doing well. Denies pain at this time. Tolerating diet. Good ostomy function. LIOR drain with significant output still. Stable for transfer today. Follow-up with Dr. Quintanilla. Objective - Vital Signs Vital signs: Vital Signs Temp 97.7 F 06/16/19 07:28 Pulse 106 H 06/16/19 07:28 Resp 18 06/16/19 07:28 BP 162/83 06/16/19 07:28 Pulse Ox 97 06/16/19 07:28 Intake & Output 06/15/19 06/16/19 06/16/19 18:59 06:59 18:59 Intake Total 800 240 Output Total 2330 390 20 Balance -1530 -390 220 Intake: Oral 800 240 Output: Drainage 330 190 20 Right Abdomen 330 190 20 Urine 1700 Stool 300 200 Other: Voiding Method Indwelling Catheter Indwelling Catheter Indwelling Catheter - Labs CBC & Chem 7: 06/15/19 05:40 06/16/19 06:29 Labs: Abnormal Lab Results - Last 24 Hours (Table) 06/15/19 06/15/19 06/16/19 Range/Units 17:18 20:19 06:29 Carbon Dioxide 31 H (22-30) mmol/L BUN 56 H (7-17) mg/dL Creatinine 1.53 H (0.52-1.04) mg/dL Glucose 43 L* (74-99) mg/dL POC Glucose (mg/dL) 233 H 324 H (75-99) mg/dL Calcium 8.3 L (8.4-10.2) mg/dL 06/16/19 06/16/19 06/16/19 Range/Units 06:52 06:53 07:08 Carbon Dioxide (22-30) mmol/L BUN (7-17) mg/dL Creatinine (0.52-1.04) mg/dL Glucose (74-99) mg/dL POC Glucose (mg/dL) 32 L 39 L 57 L (75-99) mg/dL Calcium (8.4-10.2) mg/dL 06/16/19 06/16/19 06/16/19 Range/Units 07:24 07:44 11:39 Carbon Dioxide (22-30) mmol/L BUN (7-17) mg/dL Creatinine (0.52-1.04) mg/dL Glucose (74-99) mg/dL POC Glucose (mg/dL) 65 L 74 L 139 H (75-99) mg/dL Calcium (8.4-10.2) mg/dL Microbiology - Last 24 Hours (Table) 06/12/19 05:26 Blood Culture - Preliminary Blood No Growth after 96 hours Assessment and Plan (1) Parastomal hernia Current Visit: Yes Status: Acute Code(s): K43.5 - PARASTOMAL HERNIA WITHOUT OBSTRUCTION OR GANGRENE SNOMED Code(s): 287599245
--- NOTE | 2019-06-16 13:34 | P.DS ---
Providers Date of admission: 06/12/19 04:58 Expected date of discharge: 06/16/19 Attending physician: Rajat Stewart Consults: 06/12/19 04:55 Consult Physician Routine Consulting Provider: David Hu Consult Reason/Comments: elevated troponin Do you want consulting provider notified?: Yes 06/12/19 14:36 Consult Physician Routine Consulting Provider: Cedric Quintanilla Consult Reason/Comments: Recent post op Do you want consulting provider notified?: Yes Consult Physician Routine Consulting Provider: Carrol Portillo Consult Reason/Comments: pneumonia Do you want consulting provider notified?: Yes Primary care physician: Adolfo Wang Hospital Course: Final diagnosis Mildly elevated troponin level Symptomatic bradycardia during recent admission Left lower lobe chronic infiltrates like changes. Unlikely pneumonia Para stomal hernia. Status post exploratory laparotomy and repair and colostomy revision. Abdominal pain acute on chronic kidney disease stage III chronic CHF with systolic dysfunction Chronic Persistent Atrial fibrillation Hypoglycemia Diabetes type 2 insulin-dependent Hypertension Hyperlipidemia Nonischemic cardiomyopathy Hypothyroidism History of colectomy and colostomy. Inflammatory bowel disease. Discharge disposition Patient is being discharged in a stable condition with guarded prognosis to [facility] in [place] and will follow-up with primary care provider upon discharge. She will follow up with Dr. Quintanilla surgery in one week. Total time taken is 35 minutes. History of present illness This is a 73-year-old female who was recently admitted for possible pneumonia and also minimally elevated troponin and was being closely monitored. Patient was followed by multiple medical consultations. Patient is to follow-up with surgery in the outpatient setting in one week. Patient denies any chest pain, shortness of breath, or palpitations at this time. Patient is afebrile. Currently patient denies any nausea or vomiting and is tolerating diet. Patient had brief episodes yesterday of some nausea after eating but has since subsided. Patient is tolerating diet with no difficulties. During hospitalization patient's blood sugars were up and down and being closely monitored. This morning patient had a low blood sugar and was corrected. Patient was having no signs of distress at that time. Patient is to continue with Accu-Cheks before meals at bedtime and treat accordingly with the sliding scale. Patient's colostomy is doing well with formed brown stool present. Patient will follow-up with surgery in the outpatient setting in one week. Patient was seen by cardiology and some adjustments have been made to her Coreg. Patient will follow-up in the outpatient setting upon discharge. Currently patient's condition is stable with much improvement and is ready for discharge today. Guarded prognosis On exam vital signs are stable. Temp is 97.7F, pulse is 106, respirations are 18, oxygen saturation is 97% on room air, blood pressure is 162/83. Cardio S1 and S2 are present. Respiratory system shows diminished breath sounds at the bases with no wheezing noted. Abdomen is soft with mild tenderness at the garcia rgical site. Surgical dressing is dry and intact with lizy intact as well. Excoriation of skin to the left of the colostomy bag shows some slight improvement and will continue with bacitracin. Nervous system shows no focal deficits. Please refer to medication reconciliation sheet for a list of medications. Patient Condition at Discharge: Fair Plan - Discharge Summary Discharge Rx Participant: No New Discharge Prescriptions: New Bacitracin Oint 1 applic TOPICAL BID applic Famotidine [Pepcid] 20 mg PO DAILY tab traMADol HCl [Ultram] 50 mg PO TID PRN #12 tab PRN Reason: Pain Lisinopril [Zestril] 2.5 mg PO DAILY tab Carvedilol [Coreg] 6.25 mg PO BID-W/MEALS tab Furosemide [Lasix] 20 mg PO HS tab Furosemide [Lasix] 40 mg PO DAILY tab Continue Multivitamins, Thera [Multivitamin (formulary)] 1 tab PO DAILY Atorvastatin [Lipitor] 10 mg PO HS Calcium Carbonate/Vitamin D3 [Calcium 600-Vit D3 400 Tablet] 1 tab PO DAILY Magnesium Oxide [Mag-Ox] 400 mg PO BID Levothyroxine Sodium [Synthroid] 25 mcg PO DAILY Calcium Acetate [PhosLo] 667 mg PO DAILY Loratadine 10 mg PO DAILY INSULIN LISPRO (humaLOG) [humaLOG] See Protocol SQ DAILY Insulin Glargine [Lantus] 14 unit SQ HS Apixaban [Eliquis] 2.5 mg PO BID Mesalamine [Delzicol] 400 mg PO BID Discontinued Carvedilol [Coreg] 3.125 mg PO BID-W/MEALS #60 tab Amoxicillin/Potassium Clav [Augmentin 875-125 Tablet] 1 tab PO BID 3 Days #6 tab Discharge Medication List Atorvastatin [Lipitor] 10 mg PO HS 06/03/18 [History] Calcium Acetate [PhosLo] 667 mg PO DAILY 06/03/18 [History] Calcium Carbonate/Vitamin D3 [Calcium 600-Vit D3 400 Tablet] 1 tab PO DAILY 06/03/18 [History] Levothyroxine Sodium [Synthroid] 25 mcg PO DAILY 06/03/18 [History] Magnesium Oxide [Mag-Ox] 400 mg PO BID 06/03/18 [History] Multivitamins, Thera [Multivitamin (formulary)] 1 tab PO DAILY 06/03/18 [History] Loratadine 10 mg PO DAILY 03/31/19 [History] INSULIN LISPRO (humaLOG) [humaLOG] See Protocol SQ DAILY 04/11/19 [History] Apixaban [Eliquis] 2.5 mg PO BID 05/31/19 [History] Insulin Glargine [Lantus] 14 unit SQ HS 05/31/19 [History] Mesalamine [Delzicol] 400 mg PO BID 05/31/19 [History] Bacitracin Oint 1 applic TOPICAL BID applic 06/16/19 [Rx] Carvedilol [Coreg] 6.25 mg PO BID-W/MEALS tab 06/16/19 [Rx] Famotidine [Pepcid] 20 mg PO DAILY tab 06/16/19 [Rx] Furosemide [Lasix] 20 mg PO HS tab 06/16/19 [Rx] Furosemide [Lasix] 40 mg PO DAILY tab 06/16/19 [Rx] Lisinopril [Zestril] 2.5 mg PO DAILY tab 06/16/19 [Rx] traMADol HCl [Ultram] 50 mg PO TID PRN #12 tab 06/16/19 [Rx] Follow up Appointment(s)/Referral(s): David Hu MD [STAFF PHYSICIAN] - 2 Weeks Adolfo Wang MD [Primary Care Provider] - 1-2 days Cedric Quintanilla MD [STAFF PHYSICIAN] - 06/23/19 4:00 pm Ambulatory/Diagnostic Orders: Basic Metabolic Panel [LAB.AMB] Time Frame: 3 Days, Location: None Selected Complete Blood Count w/diff [LAB.AMB] Time Frame: 3 Days, Location: None Selected Activity/Diet/Wound Care/Special Instructions: Patient is returning to [facility] ([place], [place]) Continue current diet Follow-up with primary care provider upon discharge Follow-up with surgery as discussed Continue monitoring blood sugars before meals at bedtime Discharge Disposition: TRANSFER TO SNF/ECF
--- NOTE | 2019-06-16 13:50 | P.PN ---
Subjective Progress Note Date: 06/16/19 Principal diagnosis: Acute exacerbation of chronic systolic congestive heart failure This is a pleasant 73-year-old female patient who resides at [facility]. She has a history of nonischemic cardiomyopathy with a baseline ejection fraction of 20-25%, chronic systolic congestive heart failure, chronic atrial fibrillation anticoagulated with Eliquis, mild developmental delay, hypertension, hyperlipidemia, bowel resection and colostomy, hypothyroidism, type 2 diabetes. She was just discharged from here on 06/10/2019 to an extended care facility after being hospitalized with symptomatic bradycardia, recovered without permanent pacemaker implantation, and significant excoriation around her ostomy site. She had undergone surgery with a new ostomy placement on 06/03/2019. She was returned to [facility] yesterday with complaints of increasing shortness of breath, cough and congestion. X-ray showed elevation of the hemidiaphragms consistent with low lung inflation and small pleural effusions left greater than right. No new processes compared to June 08 x-ray. White count 5.2. Hemoglobin 10.1. Creatinine 1.63. Troponin 0.110, 0.086. ProBNP 39,000. He was readmitted to the selective care unit. She is seen today in consultation. She is awake and alert in no acute distress. Resting quite flat in bed. She is afebrile. Maintaining good O2 saturations in the upper 90s on 2 L/m per nasal cannula. Hemodynamically stable. Atrial fibrillation/flutter. She remains on Eliquis. The patient is seen today 06/16/2019 in follow-up on this regular medical floor. She is currently sitting up in a chair at the bedside. Awake and alert in no acute distress. Blood culture reveals no growth. Sodium 143. Potassium 3.7. Chloride 105. Bicarb 31. Creatinine 1.53. Currently on oral diuretics. Anticoagulated with Eliquis. Objective - Vital Signs Vital signs: Vital Signs Temp 97.7 F 06/16/19 07:28 Pulse 106 H 06/16/19 07:28 Resp 18 06/16/19 07:28 BP 162/83 06/16/19 07:28 Pulse Ox 97 06/16/19 07:28 Intake & Output 06/15/19 06/16/19 06/16/19 18:59 06:59 18:59 Intake Total 800 240 Output Total 2330 390 20 Balance -1530 -390 220 Intake: Oral 800 240 Output: Drainage 330 190 20 Right Abdomen 330 190 20 Urine 1700 Stool 300 200 Other: Voiding Method Indwelling Catheter Indwelling Catheter Indwelling Catheter - Exam GENERAL EXAM: Alert, pleasant, 73-year-old female patient, in no distress. On room air. HEENT: PERRLA, EOMI, neck disc, dry mucous membranes. Throat is clear.. CHEST: No chest wall deformity. Symmetrical expansion. LUNGS: Slightly diminished breath sounds at the left base, no rhonchi and no wheezes no crackles today. CVS: Irregular rate and rhythm, normal S1 and S2, no gallops, no murmurs, no rubs ABDOMEN: Soft, left lower quadrant ostomy. No hepatosplenomegaly, normal bowel sounds, no guarding or rigidity. EXTREMITIES: No clubbing, no edema, no cyanosis, 2+ pulses and upper and lower extremities. MUSCULOSKELETAL: Muscle strength and tone normal. SPINE: No scoliosis or deformity SKIN: No rashes CENTRAL NERVOUS SYSTEM: Alert and oriented, no gross focal neurologic deficit. PSYCHIATRIC: Normal mood affect and normal mental status examination - Labs CBC & Chem 7: 06/15/19 05:40 06/16/19 06:29 Labs: Abnormal Lab Results - Last 24 Hours (Table) 06/15/19 06/15/19 06/16/19 Range/Units 17:18 20:19 06:29 Carbon Dioxide 31 H (22-30) mmol/L BUN 56 H (7-17) mg/dL Creatinine 1.53 H (0.52-1.04) mg/dL Glucose 43 L* (74-99) mg/dL POC Glucose (mg/dL) 233 H 324 H (75-99) mg/dL Calcium 8.3 L (8.4-10.2) mg/dL 06/16/19 06/16/19 06/16/19 Range/Units 06:52 06:53 07:08 Carbon Dioxide (22-30) mmol/L BUN (7-17) mg/dL Creatinine (0.52-1.04) mg/dL Glucose (74-99) mg/dL POC Glucose (mg/dL) 32 L 39 L 57 L (75-99) mg/dL Calcium (8.4-10.2) mg/dL 06/16/19 06/16/1919 Range/Units 07:24 07:44 11:39 Carbon Dioxide (22-30) mmol/L BUN (7-17) mg/dL Creatinine (0.52-1.04) mg/dL Glucose (74-99) mg/dL POC Glucose (mg/dL) 65 L 74 L 139 H (75-99) mg/dL Calcium (8.4-10.2) mg/dL Microbiology - Last 24 Hours (Table) 06/12/19 05:26 Blood Culture - Preliminary Blood No Growth after 96 hours Assessment and Plan Assessment: Impression: #1 Acute exacerbation of chronic systolic congestive heart failure in a patient with known nonischemic cardiomyopathy ejection fraction 20-25%. #2 Acute hypoxic respiratory failure secondary to above, no clear evidence of pneumonia. No fever. No leukocytosis. #3 Recent hospitalization for severe symptomatic bradycardia requiring temporary pacemaker. No permanent pacemaker placed. Medications adjusted. #4 Recent hospitalization for extensive excoriation around the ostomy site status post new ostomy site, viable. #5 Chronic right lower extremity wound suspect diabetic ulcer area #6 Diabetes mellitus, type II. #7 Hypothyroidism. #8 Chronic persistent atrial fibrillation, anticoagulated with Eliquis. #9 Hypertension. #10 Hyperlipidemia. Plan: The patient was seen and evaluated by Dr. Lester. She is cleared for discharge from the pulmonary standpoint. We'll see the patient on an s-needed basis. I, the cosigning physician, performed a history & physical examination of the patient. Lungs sounds with faint crackles in the bilateral posterior bases. Maintaining good O2 saturations in the 90s on room air. I discussed the assessment and plan of care with my nurse practitioner, Lisha Strickland. I attest to the above note as dictated by her.
--- NOTE | 2019-06-16 13:56 | P.PN ---
Subjective This is a pleasant 73-year-old female past medical history significant for chronic persistent atrial fibrillation on long-term anticoagulation with Eliquis, nonischemic cardiomyopathy, chronic systolic heart failure ejection fraction less than 20%, diabetes mellitus, hypertension, dyslipidemia and symptomatic bradycardia. She lives an an extended care facility in [place] and follows with Dr. Hu. She underwent a cardiac catheterization 05/2018 revealing normal coronary arteries with severe global hypokinesia. She is currently being treated for acute exacerbation of systolic heart failure receiving IV lasix. Repeat chest xray yesterday afternoon revealed blunted costrophrenic angles with some improvement in central vascularity. She is seen and examined sitting up in the chair in no acute distress. She states overall her breathing has improved but not quite back to baseline. She continues to cough. She denies chest pain, dizziness or palpitations. Blood pressure 162/83 heart rate 106. Laboratory data reviewed, sodium 143, potassium 3.7, creatinine 1.53, glucose 43. GENERAL: Well-appearing, well-nourished and in no acute distress. NECK: Supple without JVD or thyromegaly. LUNGS: Breath sounds clear to auscultation bilaterally. Respiration equal and unlabored. No wheezes, rales or rhonchi. HEART: Irregular rate and rhythm without murmurs, rubs or gallops. S1 and S2 heard. EXTREMITIES: Normal range of motion, no edema. No clubbing or cyanosis. Peripheral pulses intact. ASSESSMENT Acute on chronic systolic heart failure Hypoglycemia Nonischemic cardiomyopathy Chronic kidney disease, GFR 33 Chronic persistent atrial fibrillation anticoagulated with Eliquis Recent hospitalization for severe symptomatic bradycardia requiring TVP, no permanent pacemaker needed. Amiodarone discontinued. Hypertension Dyslipidemia Diabetes mellitus PLAN Transition to oral diuretics, lasix 40 mg in the AM and 20 at HS. Increase coreg to 6.25 mg PO BID. Follow up with Dr. Hu in 2 weeks. Nurse Practitioner note has been reviewed, I agree with a documented findings and plan of care. Patient was seen and examined. Objective - Vital Signs Vital signs: Vital Signs Temp 97.7 F 06/16/19 07:28 Pulse 106 H 06/16/19 07:28 Resp 18 06/16/19 07:28 BP 162/83 06/16/19 07:28 Pulse Ox 97 06/16/19 07:28 Intake & Output 06/15/19 06/16/19 06/16/19 18:59 06:59 18:59 Intake Total 800 240 Output Total 2330 390 20 Balance -1530 -390 220 Intake: Oral 800 240 Output: Drainage 330 190 20 Right Abdomen 330 190 20 Urine 1700 Stool 300 200 Other: Voiding Method Indwelling Catheter Indwelling Catheter Indwelling Catheter - Labs CBC & Chem 7: 06/15/19 05:40 06/16/19 06:29 Labs: Abnormal Lab Results - Last 24 Hours (Table) 06/15/19 06/15/19 06/16/19 Range/Units 17:18 20:19 06:29 Carbon Dioxide 31 H (22-30) mmol/L BUN 56 H (7-17) mg/dL Creatinine 1.53 H (0.52-1.04) mg/dL Glucose 43 L* (74-99) mg/dL POC Glucose (mg/dL) 233 H 324 H (75-99) mg/dL Calcium 8.3 L (8.4-10.2) mg/dL 06/16/19 06/16/19 06/16/19 Range/Units 06:52 06:53 07:08 Carbon Dioxide (22-30) mmol/L BUN (7-17) mg/dL Creatinine (0.52-1.04) mg/dL Glucose (74-99) mg/dL POC Glucose (mg/dL) 32 L 39 L 57 L (75-99) mg/dL Calcium (8.4-10.2) mg/dL 06/16/19 06/16/19 06/16/19 Range/Units 07:24 07:44 11:39 Carbon Dioxide (22-30) mmol/L BUN (7-17) mg/dL Creatinine (0.52-1.04) mg/dL Glucose (74-99) mg/dL POC Glucose (mg/dL) 65 L 74 L 139 H (75-99) mg/dL Calcium (8.4-10.2) mg/dL Microbiology - Last 24 Hours (Table) 06/12/19 05:26 Blood Culture - Preliminary Blood No Growth after 96 hours
[2019-06-16 14:59] VITALS: BP 118/70; PULSE 98; TEMP 98.3
[2019-06-16 15:01] VITALS: BMI 22.5
[2019-06-16] MEDS ORDERED: CARVEDILOL 6.25 MG TAB PO SCH (17:30)
[2019-06-16] MEDS ORDERED: FUROSEMIDE 20 MG TAB PO SCH (21:00)
[2019-06-17] MEDS ORDERED: FUROSEMIDE 40 MG TAB PO SCH (09:00)
--- NOTE | 2019-06-24 08:33 | CDI ---
Documentation Clarification Form Date: 06/24/2019 8:23:48 AM From: Thelmajadiel Cuetos Phone: f you have a question about this query, please contact Belinda Pérez Photographic Printer at [phone] between 8am and 5pm. Admit Date: 06/12/2019 4:58:00 AM Patient Name: Sophia Swift Visit Number: [id number] Discharge Date: 06/16/2019 3:59:00 PM ATTENTION: The Clinical Documentation Specialists (CDI) and [facility] Coding Staff appreciate your assistance in clarifying documentation. Please respond to the clarification below the line at the bottom and electronically sign. The CDI & [facility] Coding staff will review the response and follow-up if needed. Please note: Queries are made part of the Legal Health Record. If you have any questions, please contact the author of this message via ITS. Dr. Rajat Stewart Conflicting documentation has been found in the medical record: DCS documents chronic systolic CHF. Pulmonary consult and Cardiology PN 06/16 document Acute exacerbation of chronic systolic CHF EF 20-25%. History/Risk Factors: Clinical Indicators: BNP 67146 on admit Treatment: IV diuretics transitioned to oral Lasix 40 mg In your opinion, what is the most clinically appropriate diagnosis for this patient? Acute exacerbation of systolic CHF Chronic systolic CHF Other explanation of clinical findings Unable to determine (no explanation for clinical findings) Acute exacerbation of systolic CHF MTDD
== END 2019-06-16 15:59 | DRG 291 ==
LOC: EC 23:55 → 3SCARD 06-12 04:58 → 4SSUR 06-15 14:37
PROVIDERS: ADMIT Hospitalist; ATTEND Hospitalist
DX: I13.0 Hypertensive heart and chronic kidney disease with heart failure and stage 1 through stage 4 chronic kidney disease, or unspecified chronic kidney disease (principal); I50.23 Acute on chronic systolic (congestive) heart failure; J96.01 Acute respiratory failure with hypoxia; L97.919 Non-pressure chronic ulcer of unspecified part of right lower leg with unspecified severity; E11.52 Type 2 diabetes mellitus with diabetic peripheral angiopathy with gangrene; I47.1 Supraventricular tachycardia; I48.19 Other persistent atrial fibrillation; I48.92 Unspecified atrial flutter; K94.09 Other complications of colostomy; N17.9 Acute kidney failure, unspecified; E03.9 Hypothyroidism, unspecified; E11.22 Type 2 diabetes mellitus with diabetic chronic kidney disease; E11.622 Type 2 diabetes mellitus with other skin ulcer; Z79.4 Long term (current) use of insulin; E11.649 Type 2 diabetes mellitus with hypoglycemia without coma; E78.5 Hyperlipidemia, unspecified; I25.5 Ischemic cardiomyopathy; I42.8 Other cardiomyopathies; K63.89 Other specified diseases of intestine; L89.159 Pressure ulcer of sacral region, unspecified stage; N18.3 Chronic kidney disease, stage 3 (moderate); Z79.01 Long term (current) use of anticoagulants; Z79.890 Hormone replacement therapy; Z79.899 Other long term (current) drug therapy; Z90.49 Acquired absence of other specified parts of digestive tract; S30.811A Abrasion of abdominal wall, initial encounter; R79.89 Other specified abnormal findings of blood chemistry
CPT/HCPCS: 36415; 71045; 71046; 80048; 80053; 83605; 83880; 84484; 85025; 85027; 87040; 93005; 96374; 99285

== ENCOUNTER 2019-11-25 14:22 | Inpatient (IN) | payer MEDICARE, OTHER ==
[2019-11-25 15:04] LABS: Basophils % (A) 0 %; Eosinophils # (A) 0.1 k/uL (0-0.7); Eosinophils % (A) 2 %; HCT 31.7 % (34.0-46.0); HGB 10.3 gm/dL (11.4-16.0); Lymphocytes # (A) 0.3 k/uL (1.0-4.8); Lymphocytes % (A) 4 %; MCHC 32.6 g/dL (31.0-37.0); MCV 89.2 fL (80.0-100.0); Mean Platelet Volume 6.9; Monocytes # (A) 0.5 k/uL (0-1.0); Monocytes % (A) 5 %; Neutrophils # (A) 7.8 k/uL (1.3-7.7); Neutrophils % (A) 89 %; Platelet Count 410 k/uL (150-450); RBC 3.55 m/uL (3.80-5.40); RDW 14.3 % (11.5-15.5); WBC 8.7 k/uL (3.8-10.6)
[2019-11-25 15:20] LABS: Calcium 8.6 mg/dL (8.4-10.2); Potassium 4.4 mmol/L (3.5-5.1); Total Bilirubin 0.9 mg/dL (0.2-1.3); Total Protein 6.2 g/dL (6.3-8.2)
[2019-11-25] MEDS ORDERED: SODIUM CHLORIDE 0.9% 1,000 ML IV SCH (15:45)
--- NOTE | 2019-11-25 15:46 | ED ---
General Adult HPI - General Chief complaint: Abdominal Pain Stated complaint: abd abscess Time Seen by Provider: 11/25/19 14:58 Source: patient, EMS, RN notes reviewed, old records reviewed Mode of arrival: EMS Limitations: no limitations - History of Present Illness Initial comments: 74 yo female with complicated past medical history presenting for evaluation of abdominal wall abscess. Patient was transferred from outside facility with CT showing a 15 x 10 cm x 3 cm abscess in the anterior abdominal wall. Patient had previous surgery in May with laparotomy colostomy, lysis of adhesion. She presented to an outside emergency department with chief complaint of abdominal pain and purulent drainage. - Related Data Home Medications Medication Instructions Recorded Confirmed Atorvastatin [Lipitor] 10 mg PO HS 06/03/18 06/12/19 Calcium Acetate [PhosLo] 667 mg PO DAILY 06/03/18 06/12/19 Calcium Carbonate/Vitamin D3 1 tab PO DAILY 06/03/18 06/12/19 [Calcium 600-Vit D3 400 Tablet] Levothyroxine Sodium [Synthroid] 25 mcg PO DAILY 06/03/18 06/12/19 Magnesium Oxide [Mag-Ox] 400 mg PO BID 06/03/18 06/12/19 Multivitamins, Thera [Multivitamin 1 tab PO DAILY 06/03/18 06/12/19 (formulary)] Loratadine 10 mg PO DAILY 03/31/19 06/12/19 INSULIN LISPRO (humaLOG) [humaLOG] See Protocol SQ DAILY 04/11/19 06/12/19 Apixaban [Eliquis] 2.5 mg PO BID 05/31/19 06/12/19 Insulin Glargine [Lantus] 14 unit SQ HS 05/31/19 06/12/19 Mesalamine [Delzicol] 400 mg PO BID 05/31/19 06/12/19 Previous Rx's Medication Instructions Recorded Bacitracin Oint 1 applic TOPICAL BID applic 06/16/19 Carvedilol [Coreg] 6.25 mg PO BID-W/MEALS tab 06/16/19 Famotidine [Pepcid] 20 mg PO DAILY tab 06/16/19 Furosemide [Lasix] 20 mg PO HS tab 06/16/19 Furosemide [Lasix] 40 mg PO DAILY tab 06/16/19 Lisinopril [Zestril] 2.5 mg PO DAILY tab 06/16/19 traMADol HCl [Ultram] 50 mg PO TID PRN #12 tab 06/16/19 Allergies Allergy/AdvReac Type Severity Reaction Status Date / Time No Known Allergies Allergy Verified 11/25/19 16:10 Review of Systems ROS Statement: Those systems with pertinent positive or pertinent negative responses have been documented in the HPI. ROS Other: All systems not noted in ROS Statement are negative. Past Medical History Past Medical History: Atrial Fibrillation, Heart Failure, Diabetes Mellitus, Hyperlipidemia, Hypertension, Thyroid Disorder Additional Past Medical History / Comment(s): Mild developmental delay, the patient lives in a foster home since 1990, CHF with systolic heart failure/nonischemic cardiomyopathy, chronic atrial fibrillation, on Eliquis, hy pertension, hyperlipidemia, diabetes mellitus, hypothyroidism History of Any Multi-Drug Resistant Organisms: None Reported Past Surgical History: Bladder Surgery, Bowel Resection Additional Past Surgical History / Comment(s): HAS COLOSTOMY. Past Anesthesia/Blood Transfusion Reactions: Unable to Obtain Past Psychological History: No Psychological Hx Reported Smoking Status: Never smoker Past Alcohol Use History: None Reported Past Drug Use History: None Reported - Past Family History Mother Family Medical History: Unable to Obtain General Exam Limitations: no limitations General appearance: alert, in no apparent distress Head exam: Present: atraumatic, normocephalic Eye exam: Present: normal appearance, PERRL ENT exam: Present: normal exam Neck exam: Present: normal inspection Respiratory exam: Present: normal lung sounds bilaterally. Absent: respiratory distress Cardiovascular Exam: Present: tachycardia, irregular rhythm GI/Abdominal exam: Present: soft, distended, tenderness (Tenderness in the bilateral lower quadrants, erythema and purulent drainage) Extremities exam: Present: normal inspection, normal capillary refill. Absent: calf tenderness Neurological exam: Present: alert, oriented X3 Psychiatric exam: Present: normal affect, normal mood Course Vital Signs 11/25/19 11/25/19 14:24 15:52 Temperature 98.9 F Pulse Rate 128 H 118 H Respiratory 18 18 Rate Blood Pressure 124/79 127/73 O2 Sat by Pulse 98 93 L Oximetry EKG Findings - EKG Comments: EKG Findings:: Atrial flutter with variable AV block, T-wave inversion in the lateral precordial leads, no ST segment elevation, rate of 1:15, QRS duration 96, QTC 409 Medical Decision Making - Medical Decision Making 74-year-old female presenting for anterior abdominal wall abscess measuring 15 x 10 x 3. Patient was given Zosyn prior to transfer. She will be continued on Zosyn and vancomycin. I discussed case with Dr. Quintanilla, will admit with internal medicine on consult. Repeat laboratory testing has been obtained. - Lab Data Result diagrams: 11/25/19 14:43 11/25/19 14:43 Lab Results 11/25/19 11/25/19 Range/Units 14:43 14:43 WBC 8.7 (3.8-10.6) k/uL RBC 3.55 L (3.80-5.40) m/uL Hgb 10.3 L (11.4-16.0) gm/dL Hct 31.7 L (34.0-46.0) % MCV 89.2 (80.0-100.0) fL MCH 29.0 (25.0-35.0) pg MCHC 32.6 (31.0-37.0) g/dL RDW 14.3 (11.5-15.5) % Plt Count 410 (150-450) k/uL Neutrophils % 89 % Lymphocytes % 4 % Monocytes % 5 % Eosinophils % 2 % Basophils % 0 % Neutrophils # 7.8 H (1.3-7.7) k/uL Lymphocytes # 0.3 L (1.0-4.8) k/uL Monocytes # 0.5 (0-1.0) k/uL Eosinophils # 0.1 (0-0.7) k/uL Basophils # 0.0 (0-0.2) k/uL Sodium 129 L (137-145) mmol/L Potassium 4.4 (3.5-5.1) mmol/L Chloride 92 L (98-107) mmol/L Carbon Dioxide 28 (22-30) mmol/L Anion Gap 9 mmol/L BUN 39 H (7-17) mg/dL Creatinine 1.24 H (0.52-1.04) mg/dL Est GFR (CKD-EPI)AfAm 49 (>60 ml/min/1.73 sqM) Est GFR (CKD-EPI)NonAf 42 (>60 ml/min/1.73 sqM) Glucose 131 H (74-99) mg/dL Calcium 8.6 (8.4-10.2) mg/dL Total Bilirubin 0.9 (0.2-1.3) mg/dL AST 36 (14-36) U/L ALT 11 (4-34) U/L Alkaline Phosphatase 94 (38-126) U/L Total Protein 6.2 L (6.3-8.2) g/dL Albumin 3.0 L (3.5-5.0) g/dL Disposition Clinical Impression: Afib, Atrial flutter, Abdominal wall abscess Disposition: ADMITTED IP TO THIS [facility] Condition: Stable Is patient prescribed a controlled substance at d/c from ED?: No Referrals: Adolfo Wang MD [Primary Care Provider] - 1-2 days Decision to Admit Reason: Admit from EC Decision Date: 11/25/19 Decision Time: 15:45
[2019-11-25] MEDS ORDERED: VANCOMYCIN IV PER PHARMACY 1 EACH MISC MISCELLANE PRN (15:54)
[2019-11-25] MEDS ORDERED: NALOXONE 0.4 MG/ML 1 ML VIAL IV PRN (15:54)
[2019-11-25] MEDS ORDERED: VANCOMYCIN 1,250 MG in SODIUM CHLORIDE 0.9% 250 ML IVPB STA (16:02)
[2019-11-25] MEDS ORDERED: BISACODYL 10 MG SUPP RECTAL PRN (19:46)
[2019-11-25] MEDS ORDERED: NA PHOS,M-B/NA PHOS,DI-BA 133 ML ENEMA RECTAL PRN (19:46)
[2019-11-25] MEDS ORDERED: MAGNESIUM HYDROXIDE 2,400 MG/10 ML CUP PO PRN (19:46)
--- NOTE | 2019-11-25 20:36 | XR ---
EXAMINATION TYPE: XR chest 2V DATE OF EXAM: 11/25/2019 COMPARISON: 06/15/2019 HISTORY: Congestive heart failure TECHNIQUE: Frontal and lateral views of the chest are obtained. FINDINGS: Cardiomediastinal silhouette is enlarged. There are improving small bilateral pleural effu sions on the lateral view. No pulmonary vascular congestion seen. Diffuse osseous demineralization is noted. No focal consolidation or pneumothorax seen. IMPRESSION: Improving small pleural effusions in comparison to 06/15/2019. Cardiomegaly remains. No new focal consolidation.
[2019-11-25] MEDS ORDERED: traMADol 50 MG TAB PO PRN (21:00)
[2019-11-25] MEDS: sulfaSALAzine 500 MG TAB PO SCH (21:08)
[2019-11-25] MEDS: MAGNESIUM OXIDE 400 MG TAB PO SCH (21:08)
[2019-11-25] MEDS: ATORVASTATIN 10 MG TAB PO SCH (21:08)
[2019-11-25] MEDS ORDERED: CARVEDILOL 6.25 MG TAB PO STA (21:23)
[2019-11-25 21:31] LABS: Glucose,Whole Blood 55 mg/dL (75-99)
[2019-11-25] MEDS ORDERED: DEXTROSE 50% SYRINGE 50 ML IVP ONE (21:36)
[2019-11-25 21:44] LABS: Glucose,Whole Blood 42 mg/dL (75-99)
[2019-11-25 21:57] LABS: Glucose,Whole Blood 114 mg/dL (75-99)
[2019-11-25] MEDS: PIPERACILLIN-TAZOBACTAM 3.375 GM in SODIUM CHLORIDE 0.9% 100 ML IVPB SCH (23:25)
[2019-11-25 23:51] LABS: Glucose,Whole Blood 348 mg/dL (75-99)
[2019-11-26] MEDS: LEVOTHYROXINE 25 MCG TAB PO SCH (06:13)
[2019-11-26] MEDS: INSULIN ASPART (NovoLOG) 100 UNIT/ML VIAL SQ SCH ×4 (06:13→20:29)
[2019-11-26 06:22] LABS: Glucose,Whole Blood 319 mg/dL (75-99)
[2019-11-26 07:09] LABS: Calcium 8.2 mg/dL (8.4-10.2)
[2019-11-26 07:20] LABS: Potassium 4.7 mmol/L (3.5-5.1)
[2019-11-26] MEDS ORDERED: CARVEDILOL 6.25 MG TAB PO SCH (07:30)
[2019-11-26] MEDS ORDERED: CALCIUM ACETATE 667 MG TAB PO SCH (09:00)
[2019-11-26] MEDS ORDERED: HYDROmorphone 1 MG/ML 1 ML SYRINGE IVP STA (09:22)
[2019-11-26] MEDS ORDERED: LIDOCAINE 1%-EPI 1:100,000 20 ML VIAL SQ ONE (09:30)
[2019-11-26] MEDS: CALCIUM CARB-VIT D 500MG-200UN 1 EACH TAB PO SCH (09:44)
[2019-11-26] MEDS: FAMOTIDINE 20 MG TAB PO SCH (09:44)
[2019-11-26] MEDS: MAGNESIUM OXIDE 400 MG TAB PO SCH ×2 (09:45→20:29)
[2019-11-26] MEDS: sulfaSALAzine 500 MG TAB PO SCH ×2 (09:45→23:03)
[2019-11-26] MEDS: SIMETHICONE 40 MG/0.6 ML DROPS 2,000 MG/30 ML BOTTLE MISCELLANE SCH (09:47)
[2019-11-26] MEDS ORDERED: METOPROLOL TARTRATE 25 MG TAB PO STA (10:25)
[2019-11-26] MEDS: PIPERACILLIN-TAZOBACTAM 3.375 GM in SODIUM CHLORIDE 0.9% 100 ML IVPB SCH ×3 (10:40→23:03)
--- NOTE | 2019-11-26 11:31 | P.CONS ---
History of Present Illness - Reason for Consult Congestive heart failure, atrial fibrillation with rapid ventricular rate, - History of Present Illness Patient is a 74-year-old female admitted for abdominal abscess patient is on IV vancomycin cultures are pending. Patient had a midline incision of the abdomen patient had a history of multiple abdominal surgeries patient had a colostomy bag as well. Abdominal wound abscess will be drained by general surgery today patient had a CT showing 15-10 in to 3 cm abscess in the anterior abdominal wall. Patient had a laparotomy colostomy and lysis of adhesions in May. She has extensive medical history of multiple medical problems including congestive heart failure chronic systolic dysfunction with EF of around 20-25% patient actually appears to be hypovolemic Lasix is being held. Patient had a BNP which is elevated to 9000 but her previous BNP is highly elevated to around 30 40,000. Patient doesn't have any significant JVD patient doesn't have any crackles on exam. The other chronic medical problem is atrial fibrillation patient is rapid ventricular rate patient blood pressure is low because of which I'm decreasing the Coreg and starting her on metoprolol patient's anticoagulation is being held until she gets her abscesses drained. The other major medical issues hyponatremia patient appears to have hypervolemic hyponatremia I ordered TSH syndrome random sodium seen in random creatinine serum osmolality and urine osmolality. Probably will be consulted patient is taking sodium tablets at home considering her heart failure history probably not a good idea because of his sodium tablets were discontinued I extensively reviewed her previous charts can't find anywhere that patient has an SIADH. Review of Systems REVIEW OF SYSTEMS: CONSTITUTIONAL: No fever, no malaise, no fatigue. HEENT: No recent visual problems or hearing problems. Denied any sore throat. CARDIOVASCULAR: No chest pain, orthopnea, PND, no palpitations, no syncope. PULMONARY: No shortness of breath, no cough, no hemoptysis. GASTROINTESTINAL: No diarrhea, no nausea, no vomiting. NEUROLOGICAL: No headaches, no weakness, no numbness. HEMATOLOGICAL: Denies any bleeding or petechiae. GENITOURINARY: Denies any burning micturition, frequency, or urgency. MUSCULOSKELETAL/RHEUMATOLOGICAL: Denies any joint pain, swelling, or any muscle pain. ENDOCRINE: Denies any polyuria or polydipsia. The rest of the 14-point review of systems is negative. Past Medical History Past Medical History: Atrial Fibrillation, Heart Failure, Diabetes Mellitus, Hyperlipidemia, Hypertension, Thyroid Disorder Additional Past Medical History / Comment(s): Mild developmental delay, the patient lives in a foster home since 1990, CHF with systolic heart failure/nonischemic cardiomyopathy, chronic atrial fibrillation, on Eliquis, hypertension, hyperlipidemia, diabetes mellitus, hypothyroidism History of Any Multi-Drug Resistant Organisms: None Reported Past Surgical History: Bladder Surgery, Bowel Resection Additional Past Surgical History / Comment(s): HAS COLOSTOMY. Past Anesthesia/Blood Transfusion Reactions: Unable to Obtain Past Psychological History: No Psychological Hx Reported Smoking Status: Never smoker Past Alcohol Use History: None Reported Past Drug Use History: None Reported - Past Family History Mother Family Medical History: Unable to Obtain Medications and Allergies Home Medications Medication Instructions Recorded Confirmed Type Atorvastatin [Lipitor] 10 mg PO HS 06/03/18 11/25/19 History Calcium Acetate [PhosLo] 667 mg PO DAILY 06/03/18 11/25/19 History Calcium Carbonate/Vitamin D3 1 tab PO DAILY 06/03/18 11/25/19 History [Calcium 600-Vit D3 400 Tablet] Levothyroxine Sodium [Synthroid] 25 mcg PO DAILY@0600 06/03/18 11/25/19 History Magnesium Oxide [Mag-Ox] 400 mg PO BID 06/03/18 11/25/19 History Multivitamins, Thera [Multivitamin 1 tab PO DAILY 06/03/18 11/25/19 History (formulary)] Loratadine 10 mg PO DAILY 03/31/19 11/25/19 History Apixaban [Eliquis] 2.5 mg PO BID 05/31/19 11/25/19 History Famotidine [Pepcid] 20 mg PO DAILY tab 06/16/19 11/25/19 Rx Lisinopril [Zestril] 2.5 mg PO DAILY tab 06/16/19 11/25/19 Rx Bisacodyl [Dulcolax] 10 mg RECTAL DAILY PRN 11/25/19 11/25/19 History Carbamide Peroxide [Debrox Otic] 10 drops BOTH EARS BID 11/25/19 11/25/19 History Carvedilol [Coreg] 6.25 mg PO AC-BID 11/25/19 11/25/19 History Dextrose Chew [Glucose Chew Tab] 4 - 16 gm PO ONCE PRN 11/25/19 11/25/19 History Furosemide [Lasix] 20 mg PO DAILY@1300 11/25/19 11/25/19 History Furosemide [Lasix] 40 mg PO DAILY@0900 11/25/19 11/25/19 History Glucagon Emergency Kit 1 mg IM ONCE PRN 11/25/19 11/25/19 History Insulin Detemir [Levemir Flextouch] 10 unit SQ HS 11/25/19 11/25/19 History Magnesium Hydroxide [Milk of 2,400 mg PO DAILY PRN 11/25/19 11/25/19 History Magnesia Concentrate] Na Phos,M-B/Na Phos,Di-Ba [Fleet 133 ml RECTAL Q72H PRN 11/25/19 11/25/19 History Adult] Ondansetron [Zofran ODT] 4 mg PO AC-TID 11/25/19 11/25/19 History Simethicone 40 mg/0.6 ml Drops 20 mg MISCELLANE DAILY 11/25/19 11/25/19 History [Mylicon Drops] Sodium Chloride Tab 1 gm PO DAILY 11/25/19 11/25/19 History sulfaSALAzine [Azulfidine] 500 mg PO BID 11/25/19 11/25/19 History traMADol HCl [Ultram] 50 mg PO BID 11/25/19 11/25/19 History Allergies Allergy/AdvReac Type Severity Reaction Status Date / Time No Known Allergies Allergy Verified 11/25/19 16:10 Physical Exam Vitals: Vital Signs Temp Pulse Pulse Resp BP BP Pulse Ox 11/26/19 04:00 98.0 F 124 H 17 99/66 99 11/26/19 00:00 97.9 F 126 H 18 97/56 100 11/25/19 20:00 98.3 F 130 H 19 119/70 94 L 11/25/19 17:20 99.0 F 128 H 18 131/90 95 11/25/19 16:39 129 H 18 115/86 98 11/25/19 15:52 118 H 18 127/73 93 L 11/25/19 14:24 98.9 F 128 H 18 124/79 98 Intake and Output 11/25/19 11/26/19 11/26/19 22:59 06:59 14:59 Output Total 100 400 Balance -100 -400 Output: Urine 300 Stool 100 100 Other: Voiding Method Toilet Toilet Weight 61.689 kg PHYSICAL EXAMINATION: GENERAL: The patient is alert and oriented x3, not in any acute distress. Well developed, well nourished. HEENT: Pupils are round and equally reacting to light. EOMI. No scleral icterus. No conjunctival pallor. Normocephalic, atraumatic. No pharyngeal erythema. No thyromegaly. CARDIOVASCULAR: S1 and S2 present. No murmurs, rubs, or gallops. PULMONARY: Chest is clear to auscultation, no wheezing or crackles. ABDOMEN: Soft, nontender, nondistended, normoactive bowel sounds. No palpable organomegaly. And has a midline incision with an abscess actively draining purulent discharge MUSCULOSKELETAL: No joint swelling or deformity. EXTREMITIES: No cyanosis, clubbing, or pedal edema. NEUROLOGICAL: Gross neurological examination did not reveal any focal deficits. SKIN: No rashes. Results CBC & Chem 7: 11/25/19 14:43 11/26/19 05:43 Labs: Abnormal Lab Results - Last 24 Hours (Table) 11/25/19 11/25/19 11/25/19 Range/Units 14:43 14:43 21:12 RBC 3.55 L (3.80-5.40) m/uL Hgb 10.3 L (11.4-16.0) gm/dL Hct 31.7 L (34.0-46.0) % Neutrophils # 7.8 H (1.3-7.7) k/uL Lymphocytes # 0.3 L (1.0-4.8) k/uL Sodium 129 L (137-145) mmol/L Chloride 92 L (98-107) mmol/L BUN 39 H (7-17) mg/dL Creatinine 1.24 H (0.52-1.04) mg/dL Glucose 131 H (74-99) mg/dL POC Glucose (mg/dL) 55 L (75-99) mg/dL Calcium (8.4-10.2) mg/dL Total Protein 6.2 L (6.3-8.2) g/dL Albumin 3.0 L (3.5-5.0) g/dL 11/25/19 11/25/19 11/25/19 Range/Units 21:34 21:56 23:35 RBC (3.80-5.40) m/uL Hgb (11.4-16.0) gm/dL Hct (34.0-46.0) % Neutrophils # (1.3-7.7) k/uL Lymphocytes # (1.0-4.8) k/uL Sodium (137-145) mmol/L Chloride (98-107) mmol/L BUN (7-17) mg/dL Creatinine (0.52-1.04) mg/dL Glucose (74-99) mg/dL POC Glucose (mg/dL) 42 L 114 H 348 H (75-99) mg/dL Calcium (8.4-10.2) mg/dL Total Protein (6.3-8.2) g/dL Albumin (3.5-5.0) g/dL 11/26/19 11/26/19 Range/Units 05:43 06:12 RBC (3.80-5.40) m/uL Hgb (11.4-16.0) gm/dL Hct (34.0-46.0) % Neutrophils # (1.3-7.7) k/uL Lymphocytes # (1.0-4.8) k/uL Sodium 129 L (137-145) mmol/L Chloride 97 L (98-107) mmol/L BUN 37 H (7-17) mg/dL Creatinine 1.18 H (0.52-1.04) mg/dL Glucose 284 H (74-99) mg/dL POC Glucose (mg/dL) 319 H (75-99) mg/dL Calcium 8.2 L (8.4-10.2) mg/dL Total Protein (6.3-8.2) g/dL Albumin (3.5-5.0) g/dL Assessment and Plan Plan: -Abdominal wall abscess patient will undergo incision and drainage at bedside patient on vancomycin which will be continued and we will await the deep cultures. -Hyponatremia: He appears to have hypervolemic hyponatremia hyponatremia workup as mentioned above nephrology was consulted. -Acute renal failure patient may appears to have chronic kidney disease stage III as well etiology of her chronic kidney disease is not clear at this time but patient's creatinine improved with holding of Lasix temporally and also hold off on lisinopril temporally today and possibly need to be started these medications as soon as possible patient to be closely monitored for heart failure exacerbation patient has very poor ejection fraction. -Congestive heart failure chronic systolic dysfunction patient appears to be hypovolemic at this time holding off on on lisinopril and Lasix both of which need to be started probably tomorrow we'll closely monitor for heart failure exacerbation, actually repeat an echocardiogram. -Atrial fibrillation with rapid ventricular rate patient will be resumed on Eliquis once the incision and drainage is done. Patient will be switched to metoprolol as patient is hypotensive with Coreg. Patient heart rate is still h igh. -Type 2 diabetes mellitus patient will be resumed on home regimen will monitor bed blood sugars and titrated depending on her requirement of insulin patient blood sugars appear to be controlled now -Hyperlipidemia -Hypothyroidism -Nonischemic cardiomyopathy
[2019-11-26 12:20] LABS: Glucose,Whole Blood 373 mg/dL (75-99)
--- NOTE | 2019-11-26 12:56 | P.GSCN ---
History of Present Illness History of present illness: HISTORY OF PRESENTING ILLNESS 74-year-old female presented to the hospital in [place] with complaints of drainage from abdominal wall surgical incision site. She states the area is very tender and has been consistently draining with increasing amounts over the previous couple of days. Prior to transfer here she was given a dose of IV Zosyn. Currently maintained on vancomycin. Infectious disease is following. REVIEW OF SYSTEMS At the time of my exam: CONSTITUTIONAL: Denies fever or chills. CARDIOVASCULAR: Denies chest pain, shortness of breath, orthopnea, PND or pa lpitations. RESPIRATORY: Denies cough. GASTROINTESTINAL: Denies abdominal pain, diarrhea, constipation, nausea or vomiting. MUSCULOSKELETAL: Denies myalgias. NEUROLOGIC: Denies numbness, tingling or weakness. ENDOCRINE: Denies fatigue, weight change, polydipsia or polyurina. GENITOURINARY: Denies burning, hematuria or urgency with micturation. HEMATOLOGIC: Denies history of anemia or bleeding. PAST SURGICAL HISTORY See list PAST MEDICAL HISTORY See list MEDICATIONS See list PHYSICAL EXAMINATION Blood pressure 91/53 heart rate 127 afebrile and maintaining oxygen saturation on room air. CONSTITUTIONAL: No apparent distress. HEENT: Head is normocephalic. Pupils are equal, round. Sclerae anicteric. Mucous membranes of the mouth are moist. ABDOMEN: Dressing in place to the midline. Purulent drainage noted on dressing. Tender to touch. Erythematous around incision site. NEUROLOGIC EXAMINATION: Patient is awake, alert and oriented x3. DIAGNOSTICS CT obtained at [place] revealed anterior abdominal wall abscess measuring 15 x 10 x 3. ASSESSMENT Abdominal wall abscess PLAN Bedside incision and drainage will be performed this afternoon. Obtain consent from her legal guardian. Procedure explained to the patient in great detail she is agreeable to move forward. Chronic for this consultation. The above impression and plan of care have been discussed and directed by the [facility] physician. Giana Taveras, nurse practitioner, acting as scribe for signing physician. Past Medical History Past Medical History: Atrial Fibrillation, Heart Failure, Diabetes Mellitus, Hyperlipidemia, Hypertension, Thyroid Disorder Additional Past Medical History / Comment(s): Mild developmental delay, the patient lives in a foster home since 1990, CHF with systolic heart failure/nonischemic cardiomyopathy, chronic atrial fibrillation, on Eliquis, hypertension, hyperlipidemia, diabetes mellitus, hypothyroidism History of Any Multi-Drug Resistant Organisms: None Reported Past Surgical History: Bladder Surgery, Bowel Resection Additional Past Surgical History / Comment(s): HAS COLOSTOMY. Past Anesthesia/Blood Transfusion Reactions: Unable to Obtain Past Psychological History: No Psychological Hx Reported Smoking Status: Never smoker Past Alcohol Use History: None Reported Past Drug Use History: None Reported - Past Family History Mother Family Medical History: Unable to Obtain Medications and Allergies Home Medications Medication Instructions Recorded Confirmed Type Atorvastatin [Lipitor] 10 mg PO HS 06/03/18 11/25/19 History Calcium Acetate [PhosLo] 667 mg PO DAILY 06/03/18 11/25/19 History Calcium Carbonate/Vitamin D3 1 tab PO DAILY 06/03/18 11/25/19 History [Calcium 600-Vit D3 400 Tablet] Levothyroxine Sodium [Synthroid] 25 mcg PO DAILY@0600 06/03/18 11/25/19 History Magnesium Oxide [Mag-Ox] 400 mg PO BID 06/03/18 11/25/19 History Multivitamins, Thera [Multivitamin 1 tab PO DAILY 06/03/18 11/25/19 History (formulary)] Loratadine 10 mg PO DAILY 03/31/19 11/25/19 History Apixaban [Eliquis] 2.5 mg PO BID 05/31/19 11/25/19 History Famotidine [Pepcid] 20 mg PO DAILY tab 06/16/19 11/25/19 Rx Lisinopril [Zestril] 2.5 mg PO DAILY tab 06/16/19 11/25/19 Rx Bisacodyl [Dulcolax] 10 mg RECTAL DAILY PRN 11/25/19 11/25/19 History Carbamide Peroxide [Debrox Otic] 10 drops BOTH EARS BID 11/25/19 11/25/19 History Carvedilol [Coreg] 6.25 mg PO AC-BID 11/25/19 11/25/19 History Dextrose Chew [Glucose Chew Tab] 4 - 16 gm PO ONCE PRN 11/25/19 11/25/19 History Furosemide [Lasix] 20 mg PO DAILY@1300 11/25/19 11/25/19 History Furosemide [Lasix] 40 mg PO DAILY@0900 11/25/19 11/25/19 History Glucagon Emergency Kit 1 mg IM ONCE PRN 11/25/19 11/25/19 History Insulin Detemir [Levemir Flextouch] 10 unit SQ HS 11/25/19 11/25/19 History Magnesium Hydroxide [Milk of 2,400 mg PO DAILY PRN 11/25/19 11/25/19 History Magnesia Concentrate] Na Phos,M-B/Na Phos,Di-Ba [Fleet 133 ml RECTAL Q72H PRN 11/25/19 11/25/19 History Adult] Ondansetron [Zofran ODT] 4 mg PO AC-TID 11/25/19 11/25/19 History Simethicone 40 mg/0.6 ml Drops 20 mg MISCELLANE DAILY 11/25/19 11/25/19 History [Mylicon Drops] Sodium Chloride Tab 1 gm PO DAILY 11/25/19 11/25/19 History sulfaSALAzine [Azulfidine] 500 mg PO BID 11/25/19 11/25/19 History traMADol HCl [Ultram] 50 mg PO BID 11/25/19 11/25/19 History Allergies Allergy/AdvReac Type Severity Reaction Status Date / Time No Known Allergies Allergy Verified 11/25/19 16:10 Surgical - Exam Vital Signs Temp Pulse Resp BP Pulse Ox 98.9 F 128 H 18 124/79 98 11/25/19 14:24 11/25/19 14:24 11/25/19 14:24 11/25/19 14:24 11/25/19 14:24 Results - Labs 11/25/19 14:43 11/26/19 05:43 Abnormal Lab Results - Last 24 Hours (Table) 11/25/19 11/25/19 11/25/19 Range/Units 14:43 14:43 21:12 RBC 3.55 L (3.80-5.40) m/uL Hgb 10.3 L (11.4-16.0) gm/dL Hct 31.7 L (34.0-46.0) % Neutrophils # 7.8 H (1.3-7.7) k/uL Lymphocytes # 0.3 L (1.0-4.8) k/uL Sodium 129 L (137-145) mmol/L Chloride 92 L (98-107) mmol/L BUN 39 H (7-17) mg/dL Creatinine 1.24 H (0.52-1.04) mg/dL Glucose 131 H (74-99) mg/dL POC Glucose (mg/dL) 55 L (75-99) mg/dL Calcium (8.4-10.2) mg/dL Total Protein 6.2 L (6.3-8.2) g/dL Albumin 3.0 L (3.5-5.0) g/dL 11/25/19 11/25/19 11/25/19 Range/Units 21:34 21:56 23:35 RBC (3.80-5.40) m/uL Hgb (11.4-16.0) gm/dL Hct (34.0-46.0) % Neutrophils # (1.3-7.7) k/uL Lymphocytes # (1.0-4.8) k/uL Sodium (137-145) mmol/L Chloride (98-107) mmol/L BUN (7-17) mg/dL Creatinine (0.52-1.04) mg/dL Glucose (74-99) mg/dL POC Glucose (mg/dL) 42 L 114 H 348 H (75-99) mg/dL Calcium (8.4-10.2) mg/dL Total Protein (6.3-8.2) g/dL Albumin (3.5-5.0) g/dL 11/26/19 11/26/19 11/26/19 Range/Units 05:43 06:12 12:10 RBC (3.80-5.40) m/uL Hgb (11.4-16.0) gm/dL Hct (34.0-46.0) % Neutrophils # (1.3-7.7) k/uL Lymphocytes # (1.0-4.8) k/uL Sodium 129 L (137-145) mmol/L Chloride 97 L (98-107) mmol/L BUN 37 H (7-17) mg/dL Creatinine 1.18 H (0.52-1.04) mg/dL Glucose 284 H (74-99) mg/dL POC Glucose (mg/dL) 319 H 373 H (75-99) mg/dL Calcium 8.2 L (8.4-10.2) mg/dL Total Protein (6.3-8.2) g/dL Albumin (3.5-5.0) g/dL Diabetes panel 11/25/19 11/26/19 Range/Units 14:43 05:43 Sodium 129 L 129 L (137-145) mmol/L Potassium 4.4 4.7 (3.5-5.1) mmol/L Chloride 92 L 97 L (98-107) mmol/L Carbon Dioxide 28 25 (22-30) mmol/L BUN 39 H 37 H (7-17) mg/dL Creatinine 1.24 H 1.18 H (0.52-1.04) mg/dL Glucose 131 H 284 H (74-99) mg/dL Calcium 8.6 8.2 L (8.4-10.2) mg/dL AST 36 (14-36) U/L ALT 11 (4-34) U/L Alkaline Phosphatase 94 (38-126) U/L Total Protein 6.2 L (6.3-8.2) g/dL Albumin 3.0 L (3.5-5.0) g/dL Calcium panel 11/25/19 11/26/19 Range/Units 14:43 05:43 Calcium 8.6 8.2 L (8.4-10.2) mg/dL Albumin 3.0 L (3.5-5.0) g/dL Pituitary panel 11/25/19 11/26/19 Range/Units 14:43 05:43 Sodium 129 L 129 L (137-145) mmol/L Potassium 4.4 4.7 (3.5-5.1) mmol/L Chloride 92 L 97 L (98-107) mmol/L Carbon Dioxide 28 25 (22-30) mmol/L BUN 39 H 37 H (7-17) mg/dL Creatinine 1.24 H 1.18 H (0.52-1.04) mg/dL Glucose 131 H 284 H (74-99) mg/dL Calcium 8.6 8.2 L (8.4-10.2) mg/dL Adrenal panel 11/25/19 11/26/19 Range/Units 14:43 05:43 Sodium 129 L 129 L (137-145) mmol/L Potassium 4.4 4.7 (3.5-5.1) mmol/L Chloride 92 L 97 L (98-107) mmol/L Carbon Dioxide 28 25 (22-30) mmol/L BUN 39 H 37 H (7-17) mg/dL Creatinine 1.24 H 1.18 H (0.52-1.04) mg/dL Glucose 131 H 284 H (74-99) mg/dL Calcium 8.6 8.2 L (8.4-10.2) mg/dL Total Bilirubin 0.9 (0.2-1.3) mg/dL AST 36 (14-36) U/L ALT 11 (4-34) U/L Alkaline Phosphatase 94 (38-126) U/L Total Protein 6.2 L (6.3-8.2) g/dL Albumin 3.0 L (3.5-5.0) g/dL
[2019-11-26] MEDS: VANCOMYCIN 1,250 MG in SODIUM CHLORIDE 0.9% 250 ML IVPB SCH (13:30)
--- NOTE | 2019-11-26 14:23 | ECHOF ---
Referral Reason:chf MEASUREMENTS -------- HEIGHT: 170.2 cm WEIGHT: 61.7 kg BP: 99/66 RVIDd: 3.3 cm (< 3.3) IVSd: 0.9 cm (0.6 - 1.1) LVIDd: 4.7 cm (3.9 - 5.3) LVPWd: 1.2 cm (0.6 - 1.1) IVSs: 1.4 cm LVIDs: 4.1 cm LVPWs: 1.3 cm Ao Diam: 3.1 cm (2.0 - 3.7) AV Cusp: 2.1 cm (1.5 - 2.6) LA Diam: 4.0 cm (2.7 - 3.8) MV E Alonzo: 0.77 m/s MV DecT: 120 ms MV A Alonzo: 0.42 m/s MV E/A Ratio: 1.86 RAP: 5.00 mmHg RVSP: 32.85 mmHg TAPSE: 18.39 mm FINDINGS -------- Sinus rhythm. Resting tachycardia (HR>100bpm). This was a technically adequate study. The left ventricular size is normal. There is mild concentric left ventricular hypertrophy. Overa ll left ventricular systolic function is severely impaired with, an EF between 20 - 25 %. Basal ant erior LV wall motion is akinetic. Basal anteroseptal LV wall motion is akinetic. Mid anterior L V wall motion is akinetic. Mid anteroseptal LV wall motion is akinetic. Apical anterior LV wall motion is akinetic. Apical lateral LV wall motion is akinetic. Apical septum LV wall motion is akinetic. The right ventricle is mildly enlarged. The left atrium is mildly dilated. The right atrial size is normal. Lumason used Aortic valve is trileaflet and is mildly thickened. The mitral valve leaflets are mildly thickened. Mild mitral regurgitation is present. There is mi ld mitral valve prolapse. The tricuspid valve appears structurally normal. Mild tricuspid regurgitation present. Right vent ricular systolic pressure is normal at < 35 mmHg. The pulmonic valve was not well visualized. There is no pulmonic regurgitation present. The aortic root size is normal. IVC Not well visulized. There is no pericardial effusion. CONCLUSIONS -------- 1. There is mild concentric left ventricular hypertrophy. 2. Overall left ventricular systolic function is severely impaired with, an EF between 20 - 25 %. 3. Basal anterior LV wall motion is akinetic. 4. Basal anteroseptal LV wall motion is akinetic. 5. Mid anterior LV wall motion is akinetic. 6. Mid anteroseptal LV wall motion is akinetic. 7. Apical anterior LV wall motion is akinetic. 8. Apical lateral LV wall motion is akinetic. 9. Apical septum LV wall motion is akinetic. 10. The right ventricle is mildly enlarged. 11. The left atrium is mildly dilated. 12. Lumason used 13. Aortic valve is trileaflet and is mildly thickened. 14. Mild mitral regurgitation is present. 15. There is mild mitral valve prolapse. 16. Mild tricuspid regurgitation present. RAIL TRANSIT OPERATOR: Sheila Carvalho RDCS
--- NOTE | 2019-11-26 14:52 | CONS ---
CONSULTATION REASON FOR CONSULTATION: Hyponatremia. HISTORY OF PRESENT ILLNESS: The patient is a 74-year-old female who was admitted to the hospital as a transfer from [place]. She came there as she noticed drainage from her recent surgical incision. The patient was recently hospitalized for abdominal wound abscess, which was drained. She also has a colostomy. The patient had laparotomy and colostomy with lysis of adhesions in May 2019. She has an underlying cardiomyopathy with ejection fraction 20% to 25%. The patient's sodium was noted to be 129. She is maintained on sodium chloride tablets as outpatient. I also noticed that she was on PhosLo prior to admission. Her creatinine is 1.18 and previous creatinine has been 1.5 to 1.6 mg/dL. Her sodium previously has been 143 to 137 mEq/L. The patient denies any chest pain, shortness of breath, nausea, or vomiting. She is in atrial fibrillation with RVR. Her blood pressure has been running on the lower side with systolic in the 90s. Heart rate currently about 127 per minute. PAST MEDICAL HISTORY: Abdominal surgeries with recent abdominal wound abscess and colostomy, atrial fibrillation, CHF, cardiomyopathy, hyperlipidemia, hypothyroidism. PAST SURGICAL HISTORY: Recent bowel resection, bladder surgery, previous colostomy. SOCIAL HISTORY: Negative for smoking, drug abuse, or alcohol abuse. MEDICATIONS: Medications at home are reviewed. ALLERGIES: None. On examination, the patient is comfortable and awake. She is not in any acute distress. She is oriented x2. Blood pressure 91/53, heart rate 127 per minute, she is afebrile. EXAMINATION OF THE HEART: S1 and S2. EXAMINATION OF THE LUNGS: Decreased breath sounds at the bases. ABDOMEN: Soft and nontender. Colostomy is noted. Surgical incision is dressed. Examination of the lower extremities show no evidence of edema. MULTICULTURAL MANAGER exam grossly intact. LABS: Sodium 129, potassium 4.7, chloride 97, BUN 37, creatinine 1.18. ASSESSMENT: 1. Hyponatremia. Patient appears to be hypovolemic at this time; however, given her cardiomyopathy I will hold off on saline administration. Agree with discontinuation of sodium chloride tablets as well. I will check a urine osmolality, random urine sodium, and repeat labs in a.m. Continue to encourage increased protein intake. Blood pressure is on the lower side mainly secondary to atrial fibrillation with RVR. If patient's hypotension worsens, I will try fluid challenge cautiously. 2. Chronic kidney disease stage 3, most likely secondary to nephrosclerosis. Previous creatinine about 1.5. This appears to have been an acute kidney injury. Currently, creatinine is down to 1.18 mg/dL. 3. Drainage from the surgical incision being managed by surgery. 4. History of cardiomyopathy, ejection fraction 20% to 25%. PLAN: Agree with discontinuation of sodium chloride tablets. Awaiting urine osmolality. Check UA and random urine sodium as well. Repeat labs in a.m. Hold off on fluids for now given her cardiomyopathy, although patient does not appear to be volume-overloaded. Thank you for this consultation. We will continue to follow the patient with you during her hospitalization. MMODL / IJN: [id number] /
[2019-11-26 17:33] LABS: Glucose,Whole Blood 358 mg/dL (75-99)
[2019-11-26 20:18] LABS: Glucose,Whole Blood 338 mg/dL (75-99)
[2019-11-26] MEDS: ATORVASTATIN 10 MG TAB PO SCH (20:29)
[2019-11-26] MEDS: APIXABAN 2.5 MG TABLET PO SCH (20:29)
[2019-11-26] MEDS: METOPROLOL TARTRATE 50 MG TAB PO SCH (20:29)
[2019-11-27 00:28] LABS: Appearance,Urine Clear (Clear); Bacteria,Urine Rare /hpf; Bilirubin,Urine Negative (Negative); Blood,Urine Trace (Negative); Color,Urine Yellow; Glucose,Urine (UA) Trace (Negative); Ketones,Urine Negative (Negative); Leukocyte Esterase,Urine Trace (Negative); Nitrite,Urine Negative (Negative); Protein,Urine 2+ (Negative); RBC,Urine 1 /hpf (0-5); Specific Gravity,Urine 1.021 (1.001-1.035); Squamous Epithelial Cell,Urine 2 /hpf (0-4); Urobilinogen,Urine <2.0 mg/dL (<2.0); WBC,Urine 4 /hpf (0-5)
[2019-11-27] MEDS: LEVOTHYROXINE 25 MCG TAB PO SCH (06:14)
[2019-11-27] MEDS: INSULIN ASPART (NovoLOG) 100 UNIT/ML VIAL SQ SCH ×4 (06:14→21:32)
--- NOTE | 2019-11-27 06:23 | CONS ---
CONSULTATION DATE OF SERVICE: 11/26/2019 REASON FOR CONSULTATION: Abdominal wall abscess cellulitis. HISTORY OF PRESENT ILLNESS: The patient is a 74-year-old female with a past medical history significant for laparotomy, colostomy, lysis of adhesion in this patient who presented to outside facility with abdominal pain. The patient's pain has been going on for a few days. No history of any trauma. The patient described the pain to be dull aching 5 to 6/10 and no radiation. The patient denies any high-grade fever, rigors or chills. The patient did have CT in the outside facility which did show 15 x 10 x 3 cm abscess for which the patient had been transferred to this facility. The patient was taken to the OR this morning, status post drainage of this abscess. Details of the surgery are currently pending at this point. The patient has been started on vancomycin and Zosyn. Culture has been obtained which is currently pending. Infectious Disease was consulted for further recommendations regarding antibiotic therapy. The patient on presentation to the hospital so far has been afebrile. The patient did have a normal white count and the kidney function currently at 1.18 creatinine. REVIEW OF SYSTEMS: Positive points have been mentioned in HPI. Rest of the systems are negative. PAST MEDICAL HISTORY: Atrial fibrillation, CHF, cardiomyopathy, hyperlipidemia, hypothyroidism. PAST SURGICAL HISTORY: Recent bowel resection and colostomy and bladder surgery. SOCIAL HISTORY: Denies smoking, drinking or drug use. FAMILY HISTORY: No pertinent findings noticed. ALLERGIES: No known drug allergies. MEDICATIONS: Medications include the patient is currently on vancomycin pharmacy to dose. She is on Zosyn, , Narcan, Lopressor, Mag oxide, Synthroid, , Lipitor, Eliquis, and Tylenol. PHYSICAL EXAMINATION: On examination, her blood pressure is 93/60 with a pulse of 100, temperature 98.1. She is 98% on room air. General description is an elderly female lying in bed in no distress. No tachypnea or accessory muscle of respiration use. HEENT: Examination shows pallor, no scleral icterus. Oral mucous membrane is dry. No pharyngeal erythema or thrush. NECK: Trachea central. No thyromegaly. LUNGS: Unlabored breathing, clear to auscultation anteriorly. No wheeze or crackle. HEART: S1, S2. Regular rate and rhythm. ABDOMEN: Soft. The surgical site is currently dressed with no drainage on the dressing. EXTREMITIES: No edema of feet. SKIN EXAMINATION: No rash or mass palpable. NEUROLOGICALLY: Patient is awake, alert, oriented x3. Mood and affect normal. LABS: Hemoglobin is 10 with white count 8.7. Creatinine is 1.24. Abdominal cultures currently pending. DIAGNOSTIC IMPRESSION AND PLAN: Patient with abdominal wall abscess in this patient who did have recent abdominal surgery with laparotomy, lysis of adhesion, and diverting colostomy. Concern likely for a gram-positive skin wandy less likely gram-negative infection. PLAN: 1. Vancomycin pharmacy to dose target of 15, while watching her kidney function and vancomycin trough closely. 2. Discontinue Zosyn and add cefepime to cover for gram-negative. 3. We will follow on clinical condition and culture to further adjust medication if needed. Thank you for this consultation. Will follow this patient along with you. MMODL / IJN: [id number] /
[2019-11-27 06:31] LABS: Calcium 8.3 mg/dL (8.4-10.2); Potassium 4.6 mmol/L (3.5-5.1)
[2019-11-27 06:32] LABS: Glucose,Whole Blood 327 mg/dL (75-99)
[2019-11-27 06:46] LABS: HCT 27.3 % (34.0-46.0); Hypochromasia Slight; MCH 29.1 pg (25.0-35.0); MCHC 31.9 g/dL (31.0-37.0); MCV 91.2 fL (80.0-100.0); Mean Platelet Volume 7.3; Platelet Count 446 k/uL (150-450); RDW 14.4 % (11.5-15.5); WBC 5.4 k/uL (3.8-10.6)
[2019-11-27 06:50] LABS: HGB 8.7 gm/dL (11.4-16.0)
[2019-11-27] MEDS: sulfaSALAzine 500 MG TAB PO SCH ×2 (09:13→23:45)
[2019-11-27] MEDS: MAGNESIUM OXIDE 400 MG TAB PO SCH (09:13)
[2019-11-27] MEDS: METOPROLOL TARTRATE 50 MG TAB PO SCH (09:13)
[2019-11-27] MEDS: APIXABAN 2.5 MG TABLET PO SCH ×2 (09:13→21:24)
[2019-11-27] MEDS: CALCIUM CARB-VIT D 500MG-200UN 1 EACH TAB PO SCH (09:13)
[2019-11-27] MEDS: CEFEPIME 2 GM in SODIUM CHLORIDE 0.9% 100 ML IVPB SCH ×2 (09:13→21:24)
[2019-11-27] MEDS: FAMOTIDINE 20 MG TAB PO SCH (09:13)
[2019-11-27] MEDS: SIMETHICONE 40 MG/0.6 ML DROPS 2,000 MG/30 ML BOTTLE MISCELLANE SCH (09:14)
[2019-11-27] MEDS: VANCOMYCIN 1,250 MG in SODIUM CHLORIDE 0.9% 250 ML IVPB SCH (09:14)
--- NOTE | 2019-11-27 09:49 | P.PN ---
Subjective HISTORY OF PRESENTING ILLNESS 74-year-old female presented to the hospital in [place] with complaints of drainage from abdominal wall surgical incision site. Bedside I & D yesterday with significant amount of purulent drainage. Wet to dry dressing with packing in place. Maintained on cefipime and vancomycin per ID service. She laurence es abdominal pain. Complaining today of chest pain and palpitations. Laboratory data reviewed, WBC 5.4, hgb 8.7, plt 446, sodium 133, potassium 4.6, creatinine 1.8, elevated blood sugars. PHYSICAL EXAMINATION Blood pressure 115/65 heart rate 130 maintaining oxygen saturation on room air CONSTITUTIONAL: No apparent distress. HEENT: Head is normocephalic. Pupils are equal, round. Sclerae anicteric. Mucous membranes of the mouth are moist. ABDOMEN: Dressing in place to the midline. No drainage noted on dressing. Non- tender. Colostomy stoma pink with stool in the drainage bag. NEUROLOGIC EXAMINATION: Patient is awake, alert and oriented x3. DIAGNOSTICS CT obtained at [place] revealed anterior abdominal wall abscess measuring 15 x 10 x 3. ASSESSMENT Abdominal wall abscess PLAN Continue to antibiotics per ID. Dressing changes qshift, add silver to the packing. Consult cardiology for elevated heart rate and chest pain. The above impression and plan of care have been discussed and directed by the signing physician. Giana Taveras, nurse practitioner, acting as scribe for sign ing physician. Objective - Vital Signs Vital signs: Vital Signs Temp 98.1 F 11/27/19 08:00 Pulse 130 H 11/27/19 08:00 Resp 16 11/27/19 08:00 BP 115/65 11/27/19 08:00 Pulse Ox 97 11/27/19 03:47 Intake & Output 11/26/19 11/27/19 11/27/19 18:59 06:59 18:59 Intake Total 230 275 Output Total 850 200 450 Balance -620 75 -450 Weight 63.3 kg Intake: Oral 230 275 Output: Urine 350 250 Stool 500 200 200 Other: Voiding Method Bedpan Toilet # Voids 1 2 1 - Labs CBC & Chem 7: 11/27/19 04:54 11/27/19 04:52 Labs: Abnormal Lab Results - Last 24 Hours (Table) 11/26/19 11/26/19 11/26/19 Range/Units 00:00 12:10 17:22 RBC (3.80-5.40) m/uL Hgb (11.4-16.0) gm/dL Hct (34.0-46.0) % Sodium (137-145) mmol/L BUN (7-17) mg/dL Creatinine (0.52-1.04) mg/dL Glucose (74-99) mg/dL POC Glucose (mg/dL) 373 H 358 H (75-99) mg/dL Calcium (8.4-10.2) mg/dL Urine Protein 2+ H (Negative) Urine Glucose (UA) Trace H (Negative) Urine Blood Trace H (Negative) Ur Leukocyte Esterase Trace H (Negative) Urine Bacteria Rare H (None) /hpf 11/26/19 11/26/19 11/27/19 Range/Units 18:43 20:16 04:52 RBC (3.80-5.40) m/uL Hgb (11.4-16.0) gm/dL Hct (34.0-46.0) % Sodium 130 L 133 L (137-145) mmol/L BUN 37 H (7-17) mg/dL Creatinine 1.80 H (0.52-1.04) mg/dL Glucose 268 H (74-99) mg/dL POC Glucose (mg/dL) 338 H (75-99) mg/dL Calcium 8.3 L (8.4-10.2) mg/dL Urine Protein (Negative) Urine Glucose (UA) (Negative) Urine Blood (Negative) Ur Leukocyte Esterase (Negative) Urine Bacteria (None) /hpf 11/27/19 11/27/19 Range/Units 04:54 06:05 RBC 3.00 L (3.80-5.40) m/uL Hgb 8.7 L D (11.4-16.0) gm/dL Hct 27.3 L (34.0-46.0) % Sodium (137-145) mmol/L BUN (7-17) mg/dL Creatinine (0.52-1.04) mg/dL Glucose (74-99) mg/dL POC Glucose (mg/dL) 327 H (75-99) mg/dL Calcium (8.4-10.2) mg/dL Urine Protein (Negative) Urine Glucose (UA) (Negative) Urine Blood (Negative) Ur Leukocyte Esterase (Negative) Urine Bacteria (None) /hpf Microbiology - Last 24 Hours (Table) 11/26/19 13:11 Anaerobic Culture - Preliminary Incision 11/26/19 10:50 Gram Stain - Preliminary Abdomen Wound Culture - Preliminary
--- NOTE | 2019-11-27 09:59 | P.OP ---
Date of Procedure: 11/26/19 Preoperative Diagnosis: Abdominal wall abscess Postoperative Diagnosis: Abdominal wall abscess Procedure(s) Performed: Incision and drainage of abdominal wall abscess Anesthesia: TG Surgeon: Cedric Quintanilla Estimated Blood Loss (ml): 2 Pathology: other (Wound culture) Condition: stable Disposition: PACU Description of Procedure: The patient's placed on her bed in supine position. She received local anesthetic and 1 mg IV Dilaudid. The area of the abscess was prepped and draped usual sterile fashion. The area was injected 1% local Xylocaine. And then the skin was incised with 11 blade. The abscess cavity is entered. Approximately 20 mL of purulent fluid was removed. The abscess cavity was then packed with a 4 x 4 gauze. Patient top she will was sent to recovery in stable condition
--- NOTE | 2019-11-27 10:23 | CONS ---
CONSULTATION This is a 74-year-old lady who sees Dr. Hu in the office. This lady had an abdominal surgery, laparotomy, lysis of adhesions, and diverting colostomy performed a few months ago. She was in the hospital at that time. She had what seems to be a profound bradycardia requiring a temporary pacemaker at some point. She had a cardiac catheterization in May 2018, which revealed no significant obstructive CAD. She has nonischemic cardiomyopathy with ejection fraction in the range of 25% or also. She also has type 2 diabetes, hypertension, and hyperlipidemia. Apparently she had an episode of significant bradycardia requiring temporary pacemaker sometime in the last 6 to 8 months. So, she does have what seems to be a significant bradycardia after administration of amiodarone and beta arnaud combination. This is the background story. I was asked to see her mainly because of an episode of chest discomfort. On questioning, patient's discomfort is in the left anterior chest which is almost reproducible, worse when she takes a deep breath and also I can apply gentle pressure and reproduce the pain. Her EKG revealed atrial flutter rate of about 100 to 110 per minute. No significant ST-T changes. Probability of this being anginal pain seems very less likely. I explained this to the patient. We will give the 50 mg of metoprolol tartrate that was ordered this morning, but I will switch her to Coreg 6.25 mg b.i.d. and will keep a close eye for any slow heart rates for her. She has an abdominal wall abscess that has been drained and she is now on antibiotics, probably gram-positive bacteria. She is relatively comfortable at the time of my evaluation. Her creatinine has gone up from 1.24 to 1.8 and she is also being seen by Nephrology. She has diabetes and blood sugars have been elevated. BNP is also in the range of 9000, but this may be a chronically elevated BNP for her. PAST MEDICAL HISTORY: 1. Nonischemic cardiomyopathy, unremarkable coronary angiogram in May 2018. 2. History of significant bradycardia with amiodarone and beta arnaud combination. 3. History of hypertension. 4. Diabetes. 5. Hyperlipidemia. 6. Abdominal surgery with lysis of adhesions and diverting colostomy and now presents with abdominal wall abscess. PHYSICAL EXAMINATION: On examination, blood pressure is 118/70, pulse rate 110 to 120. HEENT: Unremarkable. Fundus was not examined. Neck is supple. There is JVD of 1 cm. No carotid bruit. Heart exam reveals S1, S2. Tachycardia. Short systolic murmur. Lungs reveal diminished air entry. Abdomen exam deferred. Central nervous system grossly no focal deficits. IMPRESSION: 1. Atypical chest pain. 2. Chronic atrial fibrillation, rate is higher, probably related to pain and abscess and active infection. 3. Nonischemic cardiomyopathy. No coronary artery disease by catheterization in May 2018. 4. Type 2 diabetes with chronic kidney disease. Creatinine has gone up. 5. Hypertension. 6. Hyperlipidemia. RECOMMENDATIONS: I would recommend that we hydrate her cautiously and resume beta arnaud at a low dose. Keep an eye for any significant bradycardia. The patient is not in active heart failure. We will therefore continue all her other medications at this time. In view of rise in creatinine, I would not give her any JONAH inhibitors or ARB at this time. We will continue the apixaban 2.5 mg b.i.d., which she has always been on. Her weight is about 60 kg or so. I will give 50 mg Lopressor this morning, but switch her to Coreg 6.25 mg b.i.d. from this evening. I discussed my thoughts in detail with the patient. Thank you very much for the consult. MMODL / IJN: [id number] /
[2019-11-27 11:52] LABS: Glucose,Whole Blood 454 mg/dL (75-99)
--- NOTE | 2019-11-27 11:52 | P.PN ---
Subjective 74-year-old female admitted for abdominal abscess patient is on IV vancomycin cultures are pending. Patient had a midline incision of the abdomen patient had a history of multiple abdominal surgeries patient had a colostomy bag as well. Abdominal wound abscess will be drained by general surgery today patient had a CT showing 15-10 in to 3 cm abscess in the anterior abdominal wall. Patient had a laparotomy colostomy and lysis of adhesions in May. She has extensive medical history of multiple medical problems including congestive heart failure chronic systolic dysfunction with EF of around 20-25% patient actually appears to be hypovolemic Lasix is being held. Patient had a BNP which is elevated to 9000 but her previous BNP is highly elevated to around 30 40,000. Patient doesn't have any significant JVD patient doesn't have any c rackles on exam. The other chronic medical problem is atrial fibrillation patient is rapid ventricular rate patient blood pressure is low because of which I'm decreasing the Coreg and starting her on metoprolol patient's anticoagulation is being held until she gets her abscesses drained. The other major medical issues hyponatremia patient appears to have hypervolemic hyponatremia I ordered TSH syndrome random sodium seen in random creatinine serum osmolality and urine osmolality. Probably will be consulted patient is taking sodium tablets at home considering her heart failure history probably not a good idea because of his sodium tablets were discontinued I extensively reviewed her previous charts can't find anywhere that patient has an SIADH. 11/27/2019 Patient is still remains hypovolemic patient remains off Lasix at this time patient remains tachycardic cardiology was consulted and they switch metoprolol to Coreg. Patient serum creatinine although at the loss obtain vancomycin levels and the may need to be switched to daptomycin. Her serum sodium although improved. Her serum sodium is 133. Patient status post incision and drainage. Gram stain is showing gram-positive cocci patient is presently on vancomycin and cefepime Constitutional: Denied any fatigue denied any fever. Cardio vascular: denied any chest pain, palpitations Gastrointestinal denied any nausea vomiting Pulmonary: Denied any shortness of breath cough Neurologic denied any new focal deficits All inpatient medications were reviewed and appropriate changes in these medications as dictated in the interval history and assessment and plan. Objective - Vital Signs Vital signs: Vital Signs Temp 98.1 F 11/27/19 08:00 Pulse 130 H 11/27/19 08:00 Resp 16 11/27/19 08:00 BP 115/65 11/27/19 08:00 Pulse Ox 97 11/27/19 03:47 Intake & Output 11/26/19 11/27/19 11/27/19 18:59 06:59 18:59 Intake Total 230 275 120 Output Total 801 779 2335 Balance -620 75 -1080 Weight 63.3 kg Intake: Oral 230 275 120 Output: Urine 350 700 Stool 500 200 500 Other: Voiding Method Bedpan Toilet # Voids 1 2 2 - Exam PHYSICAL EXAMINATION: GENERAL: The patient is alert and oriented x3, not in any acute distress. Well developed, well nourished. HEENT: Pupils are round and equally reacting to light. EOMI. No scleral icterus. No conjunctival pallor. Normocephalic, atraumatic. No pharyngeal erythema. No thyromegaly. CARDIOVASCULAR: S1 and S2 present. No murmurs, rubs, or gallops. PULMONARY: Chest is clear to auscultation, no wheezing or crackles. ABDOMEN: Soft, nontender, nondistended, normoactive bowel sounds. No palpable organomegaly. And has a midline incision with an abscess actively draining purulent discharge MUSCULOSKELETAL: No joint swelling or deformity. EXTREMITIES: No cyanosis, clubbing, or pedal edema. NEUROLOGICAL: Gross neurological examination did not reveal any focal deficits. SKIN: No rashes. - Labs CBC & Chem 7: 11/27/19 04:54 11/27/19 04:52 Labs: Abnormal Lab Results - Last 24 Hours (Table) 11/26/19 11/26/19 11/26/19 Range/Units 00:00 12:10 17:22 RBC (3.80-5.40) m/uL Hgb (11.4-16.0) gm/dL Hct (34.0-46.0) % Sodium (137-145) mmol/L BUN (7-17) mg/dL Creatinine (0.52-1.04) mg/dL Glucose (74-99) mg/dL POC Glucose (mg/dL) 373 H 358 H (75-99) mg/dL Calcium (8.4-10.2) mg/dL Urine Protein 2+ H (Negative) Urine Glucose (UA) Trace H (Negative) Urine Blood Trace H (Negative) Ur Leukocyte Esterase Trace H (Negative) Urine Bacteria Rare H (None) /hpf 11/26/19 11/26/19 11/27/19 Range/Units 18:43 20:16 04:52 RBC (3.80-5.40) m/uL Hgb (11.4-16.0) gm/dL Hct (34.0-46.0) % Sodium 130 L 133 L (137-145) mmol/L BUN 37 H (7-17) mg/dL Creatinine 1.80 H (0.52-1.04) mg/dL Glucose 268 H (74-99) mg/dL POC Glucose (mg/dL) 338 H (75-99) mg/dL Calcium 8.3 L (8.4-10.2) mg/dL Urine Protein (Negative) Urine Glucose (UA) (Negative) Urine Blood (Negative) Ur Leukocyte Esterase (Negative) Urine Bacteria (None) /hpf 11/27/19 11/27/19 Range/Units 04:54 06:05 RBC 3.00 L (3.80-5.40) m/uL Hgb 8.7 L D (11.4-16.0) gm/dL Hct 27.3 L (34.0-46.0) % Sodium (137-145) mmol/L BUN (7-17) mg/dL Creatinine (0.52-1.04) mg/dL Glucose (74-99) mg/dL POC Glucose (mg/dL) 327 H (75-99) mg/dL Calcium (8.4-10.2) mg/dL Urine Protein (Negative) Urine Glucose (UA) (Negative) Urine Blood (Negative) Ur Leukocyte Esterase (Negative) Urine Bacteria (None) /hpf Microbiology - Last 24 Hours (Table) 11/26/19 13:11 Anaerobic Culture - Preliminary Incision 11/26/19 10:50 Gram Stain - Preliminary Abdomen Wound Culture - Preliminary Assessment and Plan Plan: -Abdominal wall abscess patient will undergo incision and drainage at bedside patient on vancomycin which will be continued and we will await the deep cultures. -Hyponatremia: He appears to have hypovolemic hyponatremia, can you to hold off on Lasix -Acute renal failure patient may appears to have chronic kidney disease stage III as well etiology of her chronic kidney disease is not clear at this time but patient's creatinine improved with holding of Lasix temporally and also hold off on lisinopril temporally today and possibly need to be started these medications as soon as possible patient to be closely monitored for heart failure exacerbation patient has very poor ejection fraction. Patient serum creatinine has worsened will obtain vancomycin levels. -Congestive heart failure chronic systolic dysfunction patient appears to be hypovolemic at this time holding off on on lisinopril and Lasix due to acute re nal failure with need to closely monitor for heart failure exacerbation -Atrial fibrillation with rapid ventricular rate patient will be resumed on Eliquis once the incision and drainage is done. Patient is on Coreg and the cardiology was consulted. Patient heart rate is still high. -Type 2 diabetes mellitus patient will be resumed on home regimen will monitor bed blood sugars and titrated depending on her requirement of insulin patient blood sugars appear to be controlled now -Hyperlipidemia -Hypothyroidism -Nonischemic cardiomyopathy
--- NOTE | 2019-11-27 16:35 | PN ---
PROGRESS NOTE Patient is seen for followup for hyponatremia which has actually corrected itself. However, patient's creatinine increased to 1.8 mg/dL today. She has had good urine output. She is complaining of pain from her surgical site and there has not been significant increase in her output from the ostomy. She does have severe underlying cardiomyopathy. Therefore, IV fluids have not been started. Currently patient is lying flat. She denies any shortness of breath or chest pains. PHYSICAL EXAMINATION: This morning blood pressure 115/65, heart rate 130 per minute, she is afebrile. Examination of the heart S1, S2. Examination of the lungs, decreased breath sounds at the bases. Abdomen is soft, nontender. Examination of the lower extremities shows no evidence of edema. Colostomy is noted. Surgical site is currently dressed. There is drainage noted from it. MACHINE BENDER exam grossly intact. LABS: Show sodium of 133, potassium 4.6, chloride 101. CO2 is 28, BUN 37, creatinine 1.8 mg/dL, hemoglobin 8.7 g/dL. ASSESSMENT: 1. Acute kidney injury, multifactorial, possibly component of hypovolemia as well as secondary to possible vancomycin toxicity level was 37.9 today. Recommend discontinuation of vancomycin and I will challenge her with gentle IV hydration if her renal function is worse tomorrow. Currently urine output is maintained, patient is not on any other nephrotoxic medications. 2. Hyponatremia. I believe it is hypovolemic, now improved. The patient does not need the sodium chloride tabs at this point. 3. Infection at the surgical incision in the abdomen, maintained on antibiotics as per ID. 4. Non ischemic cardiomyopathy, ejection fraction about 25%. 5. Atrial fibrillation with RVR maintained on Eliquis, being followed by Cardiology. 6. Abdominal wall abscess to undergo I and D at bedside. PLAN: Continue off sodium chloride. Discontinue vancomycin challenge with saline if renal function is worse tomorrow. Controlled heart rate, which will help with the kidney function as well. MMODL / IJN: [id number] /
[2019-11-27 17:00] LABS: Glucose,Whole Blood 438 mg/dL (75-99)
[2019-11-27] MEDS: CARVEDILOL 6.25 MG TAB PO SCH (17:16)
[2019-11-27 20:03] LABS: Glucose,Whole Blood 343 mg/dL (75-99)
[2019-11-27] MEDS: INSULIN DETEMIR (LEVEMIR) 100 UNIT/ML SYR SQ SCH (21:33)
--- NOTE | 2019-11-27 23:58 | PN ---
PROGRESS NOTE DATE OF SERVICE: 11/27/2019 REASON FOR FOLLOWUP: Abdominal wall abscess. INTERVAL HISTORY: The patient is currently afebrile. The patient is breathing comfortably. The patient denies having any chest pain or shortness of breath or cough. Abdominal pain is currently controlled. No nausea, vomiting or diarrhea. PHYSICAL EXAMINATION: Blood pressure 136/76, pulse of 84, temperature 98.1. She is 99% on room air. General description is an elderly female up in the bed in no distress. RESPIRATORY SYSTEM: Unlabored breathing. Clear to auscultation anteriorly. HEART: S1, S2. Regular rate and rhythm. ABDOMEN: Soft. Wound is currently packed. No surrounding redness or purulent drainage. LABS: Hemoglobin is 8.7, white count 5.4. She did have a jump in her creatinine to 1.80 and noticed to have an elevated vancomycin level. DIAGNOSTIC IMPRESSION AND PLAN: Patient with an abdominal wall abscess, status post drainage, now with a significant jump in creatinine. Vancomycin discontinued. Daptomycin has been added; to continue along with cefepime, adjusting it further based on the culture report. Continue with supportive care. MMODL / IJN: [id number] /
[2019-11-28 05:41] LABS: Glucose,Whole Blood 224 mg/dL (75-99)
[2019-11-28] MEDS: LEVOTHYROXINE 25 MCG TAB PO SCH (05:51)
[2019-11-28] MEDS: INSULIN ASPART (NovoLOG) 100 UNIT/ML VIAL SQ SCH ×4 (05:51→20:34)
[2019-11-28] MEDS: CARVEDILOL 6.25 MG TAB PO SCH ×2 (05:51→17:41)
[2019-11-28 06:32] LABS: Calcium 8.6 mg/dL (8.4-10.2)
[2019-11-28] MEDS: FAMOTIDINE 20 MG TAB PO SCH (08:42)
[2019-11-28] MEDS: APIXABAN 2.5 MG TABLET PO SCH ×2 (08:42→20:34)
[2019-11-28] MEDS: CEFEPIME 2 GM in SODIUM CHLORIDE 0.9% 100 ML IVPB SCH (08:42)
[2019-11-28] MEDS: sulfaSALAzine 500 MG TAB PO SCH ×2 (08:42→20:34)
[2019-11-28] MEDS: CALCIUM CARB-VIT D 500MG-200UN 1 EACH TAB PO SCH (08:42)
[2019-11-28] MEDS: SIMETHICONE 40 MG/0.6 ML DROPS 2,000 MG/30 ML BOTTLE MISCELLANE SCH (09:32)
--- NOTE | 2019-11-28 09:59 | P.PN ---
Subjective This is a pleasant 74 showed female status post abdominal surgery with lysis of adhesions and diverting colostomy. She is currently being treated for anterior wall incisional abscess. Consultation obtained secondary to atypical pleuritic chest pain and A. fib with RVR. She has a past medical history of nonischemic cardiomyopathy with ejection fraction 25%, diabetes mellitus, hypertension and dyslipidemia. She follows my office with Dr. Hu. She is seen and examined sitting up in the chair eating breakfast in no acute distress. She denies any further symptoms of chest discomfort. She has no shortness of breath dizziness or palpitations. Blood pressure 109/68 heart rate is fluctuating between 120 and 130. Currently maintained on Coreg 6.25 mg twice a day. GENERAL: Well-appearing, well-nourished and in no acute distress. NECK: Supple without JVD or thyromegaly. LUNGS: Breath sounds clear to auscultation bilaterally. Respiration equal and unlabored. No wheezes, rales or rhonchi. HEART: Irregular rate and rhythm with systolic ejection murmur at the left sternal border, rubs or gallops. S1 and S2 heard. EXTREMITIES: Normal range of motion, no edema. No clubbing or cyanosis. Peripheral pulses intact. ASSESSMENT Chest pain, atypical and pleuritic. Chronic persistent atrial fibrillation with variable ventricular rates Abdominal wall abscess Nonischemic cardiomyopathy Hypertension Dyslipidemia Diabetes mellitus PLAN Continue Coreg at 6.25 mg twice a day. Given her history in the past of significant bradycardia requiring temporary pacing we will keep this dose as it is and continue to watch her on the monitor. Rates may be elevated secondary to infection and make him down on this improves. Nurse Practitioner note has been reviewed, I agree with a documented findings and plan of care. Patient was seen and examined. Objective - Vital Signs Vital signs: Vital Signs Temp 98.4 F 11/28/19 04:00 Pulse 131 H 11/28/19 04:00 Resp 18 11/28/19 04:00 BP 109/58 11/28/19 04:00 Pulse Ox 97 11/28/19 04:00 Intake & Output 11/27/19 11/28/19 11/28/19 18:59 06:59 18:59 Intake Total 1030 450 200 Output Total 2550 1050 350 Balance -1520 -600 -150 Weight 62.5 kg Intake: Oral 1030 450 200 Output: Urine 1350 750 200 Stool 1200 300 150 Other: Voiding Method Toilet Toilet # Voids 3 - Labs CBC & Chem 7: 11/27/19 04:54 11/28/19 05:39 Labs: Abnormal Lab Results - Last 24 Hours (Table) 11/27/19 11/27/19 11/27/19 Range/Units 11:52 16:55 20:00 BUN (7-17) mg/dL Creatinine (0.52-1.04) mg/dL Glucose (74-99) mg/dL POC Glucose (mg/dL) 454 H 438 H 343 H (75-99) mg/dL 11/28/19 11/28/19 Range/Units 05:37 05:39 BUN 34 H (7-17) mg/dL Creatinine 1.31 H (0.52-1.04) mg/dL Glucose 191 H (74-99) mg/dL POC Glucose (mg/dL) 224 H (75-99) mg/dL
--- NOTE | 2019-11-28 10:11 | P.PN ---
Subjective Progress Note Date: 11/28/19 Principal diagnosis: Abdominal wall abscess Patient without new complaints. Colostomy appliance was leaking this morning. No pain. Tolerating diet. She is afebrile. Objective - Vital Signs Vital signs: Vital Signs Temp 98.4 F 11/28/19 04:00 Pulse 131 H 11/28/19 04:00 Resp 18 11/28/19 04:00 BP 109/58 11/28/19 04:00 Pulse Ox 97 11/28/19 04:00 Intake & Output 11/27/19 11/28/19 11/28/19 18:59 06:59 18:59 Intake Total 1030 450 200 Output Total 2550 1050 350 Balance -1520 -600 -150 Weight 62.5 kg Intake: Oral 1030 450 200 Output: Urine 1350 750 200 Stool 1200 300 150 Other: Voiding Method Toilet Toilet # Voids 3 - Exam Abdomen: Soft, nondistended, excoriation inferior to ostomy, wound with some purulent drainage noted, minimal tenderness - Labs CBC & Chem 7: 11/27/19 04:54 11/28/19 05:39 Labs: Abnormal Lab Results - Last 24 Hours (Table) 11/27/19 11/27/19 11/27/19 Range/Units 11:52 16:55 20:00 BUN (7-17) mg/dL Creatinine (0.52-1.04) mg/dL Glucose (74-99) mg/dL POC Glucose (mg/dL) 454 H 438 H 343 H (75-99) mg/dL 11/28/19 11/28/19 Range/Units 05:37 05:39 BUN 34 H (7-17) mg/dL Creatinine 1.31 H (0.52-1.04) mg/dL Glucose 191 H (74-99) mg/dL POC Glucose (mg/dL) 224 H (75-99) mg/dL Assessment and Plan (1) Abdominal wall abscess Narrative/Plan: Continue antibiotics for abdominal wall abscess. We'll consult ostomy nurse to evaluate the peristomal irritation and assist with proper fitting of the stomal appliance. Continue physical therapy. Current Visit: Yes Status: Acute Code(s): L02.211 - CUTANEOUS ABSCESS OF ABDOMINAL WALL SNOMED Code(s): 33526047
[2019-11-28 11:57] LABS: Glucose,Whole Blood 351 mg/dL (75-99)
--- NOTE | 2019-11-28 14:14 | PN ---
PROGRESS NOTE The patient is seen for followup for acute kidney injury. The patient is currently sitting up in bed. She is comfortable. Her renal function has improved. Creatinine is down to 1.3 from 1.8 yesterday. The patient's sodium has also improved. It is up to 137 now. She denies any significant complaints today. PHYSICAL EXAMINATION: On examination, blood pressure 125/65, heart rate 124 per minute. She is afebrile. EXAMINATION OF THE HEART: S1, S2. EXAMINATION OF LUNGS: Decreased breath sounds at bases. Abdomen is soft, nontender. Examination of lower extremities shows no significant edema. There is drainage noted on the dressing of her surgical incision in the abdomen. LABS: Labs show sodium 137, potassium 4.0, chloride 107, BUN 34, creatinine 1.3. ASSESSMENT: 1. Acute kidney injury, currently improved. Patient had been on vancomycin. This is now discontinued. She did not get IV fluids. Currently, patient has good urine output. We will continue to avoid nephrotoxic medications. Renal function is back down to baseline. 2. Chronic kidney disease stage 3 secondary to nephrosclerosis. 3. Hyponatremia, improved. The patient was on sodium chloride tabs which were discontinued on admission, she may have been mildly hypovolemic however since her sodium has improved I will avoid fluid administration as she has severe cardiomyopathy. 4. Severe cardiac cardiomyopathy, ejection fraction 20% to 25%. 5. Abdominal wound infection/abscess being followed by General Surgery. PLAN: Continue off of IV fluids. Repeat labs in a.m. Continue to avoid nephrotoxic medications. MMODL / IJN: [id number] /
[2019-11-28 17:15] LABS: Glucose,Whole Blood 344 mg/dL (75-99)
[2019-11-28 20:26] LABS: Glucose,Whole Blood 398 mg/dL (75-99)
[2019-11-28] MEDS: INSULIN DETEMIR (LEVEMIR) 100 UNIT/ML SYR SQ SCH (20:34)
[2019-11-28] MEDS: ACETAMINOPHEN TAB 325 MG TAB PO PRN (22:10)
--- NOTE | 2019-11-28 23:41 | PN ---
PROGRESS NOTE DATE OF SERVICE: 11/28/2019 REASON FOR FOLLOW UP: MRSA abdominal wall abscess. INTERVAL HISTORY: The patient is currently afebrile. She is breathing comfortably. Denies having any chest pain or cough. Abdominal pain has improved. No nausea, vomiting or diarrhea. PHYSICAL EXAMINATION: Blood pressure 141/74, pulse of 100, temperature 97.5. She is 98% on room air. General description: The patient is an elderly female up in the bed in no distress. Respiratory system: Unlabored breathing, clear to auscultation anteriorly. Heart S1, S2. Regular rate and rhythm. Abdomen soft. No tenderness. LABS: Creatinine is down to 1.31. Wound culture presumptive MRSA. DIAGNOSTIC IMPRESSION AND PLAN: Patient with MRSA abdominal wall abscess, status post debridement. Waiting for this pathogen to determine her discharge antibiotics. Continue with daptomycin. Monitor clinical course closely. MMODL / IJN: [id number] /
[2019-11-29] MEDS: CARVEDILOL 6.25 MG TAB PO SCH ×2 (06:21→16:41)
[2019-11-29] MEDS: LEVOTHYROXINE 25 MCG TAB PO SCH (06:21)
[2019-11-29 06:22] LABS: Glucose,Whole Blood 153 mg/dL (75-99)
[2019-11-29] MEDS: INSULIN ASPART (NovoLOG) 100 UNIT/ML VIAL SQ SCH ×4 (06:23→21:38)
[2019-11-29 06:58] LABS: Calcium 8.7 mg/dL (8.4-10.2); Potassium 4.6 mmol/L (3.5-5.1)
[2019-11-29] MEDS: sulfaSALAzine 500 MG TAB PO SCH ×2 (09:31→21:38)
[2019-11-29] MEDS: FAMOTIDINE 20 MG TAB PO SCH (09:32)
[2019-11-29] MEDS: APIXABAN 2.5 MG TABLET PO SCH ×2 (09:32→21:38)
[2019-11-29] MEDS: CALCIUM CARB-VIT D 500MG-200UN 1 EACH TAB PO SCH (09:32)
[2019-11-29] MEDS: HYDROPHILIC CREAM 180 GM TUBE TOPICAL SCH (09:32)
[2019-11-29] MEDS: SIMETHICONE 40 MG/0.6 ML DROPS 2,000 MG/30 ML BOTTLE MISCELLANE SCH (09:32)
[2019-11-29] MEDS: DILTIAZEM ORAL 30 MG TAB PO SCH ×2 (09:56→21:38)
--- NOTE | 2019-11-29 11:11 | P.PN ---
Subjective Progress Note Date: 11/29/19 Principal diagnosis: Abdominal wall abscess Patient doing fairly well today. No new discomforts. Tolerating diet. Good ostomy function. Drainage seems decreased from midline wound. Objective - Vital Signs Vital signs: Vital Signs Temp 97.8 F 11/29/19 08:00 Pulse 130 H 11/29/19 08:00 Resp 20 11/29/19 08:00 BP 117/69 11/29/19 08:00 Pulse Ox 100 11/29/19 08:00 Intake & Output 11/28/19 11/29/19 11/29/19 18:59 06:59 18:59 Intake Total 652 450 Output Total 1150 850 Balance -498 -400 Weight 64 kg Intake: Oral 652 450 Output: Urine 500 850 Stool 650 Other: Voiding Method Toilet # Voids 1 1 1 - Exam Abdomen: Soft, nondistended, ostomy function, wound clean with small amount of purulent drainage - Labs CBC & Chem 7: 11/27/19 04:54 11/29/19 05:57 Labs: Abnormal Lab Results - Last 24 Hours (Table) 11/28/19 11/28/19 11/28/19 Range/Units 11:50 17:12 20:25 BUN (7-17) mg/dL Creatinine (0.52-1.04) mg/dL Glucose (74-99) mg/dL POC Glucose (mg/dL) 351 H 344 H 398 H (75-99) mg/dL 11/29/19 11/29/19 Range/Units 05:57 06:21 BUN 33 H (7-17) mg/dL Creatinine 1.31 H (0.52-1.04) mg/dL Glucose 128 H (74-99) mg/dL POC Glucose (mg/dL) 153 H (75-99) mg/dL Microbiology - Last 24 Hours (Table) 11/26/19 10:50 Gram Stain - Final Abdomen Wound Culture - Final Methicillin resist S. aureus 11/26/19 13:11 Anaerobic Culture - Preliminary Incision Assessment and Plan (1) Abdominal wall abscess Narrative/Plan: Continue local wound care. Continue antibiotics. Diet as tolerated. Current Visit: Yes Status: Acute Code(s): L02.211 - CUTANEOUS ABSCESS OF ABDOMINAL WALL SNOMED Code(s): 61540438
--- NOTE | 2019-11-29 11:50 | PN ---
PROGRESS NOTE Sophia is a 74-year-old lady that we are following from Cardiology because of atrial fibrillation with poorly controlled ventricular rate. Yesterday I did not want to add any medications to her in spite of the fast heart rate because of concerns about a slow heart rate in the past. She is currently on Coreg 6.25 b.i.d. and this morning she remains in atrial fibrillation with fast heart rate. Heart rate is around 130 beats per minute persistently. I am putting her on Cardizem 30 mg b.i.d. She is already on Eliquis which he is going to continue. EXAM: Afebrile. Heart rate is 130 beats, blood pressure is 126/60 respiratory rate is 18, O2 sat is 98% on room air. Rest of her exam is unchanged. ASSESSMENT: Persistent atrial fibrillation with poorly controlled ventricular rate. PLAN: We will add Cardizem 30 q12. MMODL / IJN: [id number] /
[2019-11-29] MEDS ORDERED: INSULIN ASPART (NovoLOG) 100 UNIT/ML VIAL SQ ONE (12:03)
[2019-11-29 12:07] LABS: Glucose,Whole Blood 471 mg/dL (75-99)
[2019-11-29 12:07] LABS: Glucose,Whole Blood 499 mg/dL (75-99)
--- NOTE | 2019-11-29 14:26 | PN ---
PROGRESS NOTE Patient is seen for follow up for for acute kidney injury and hyponatremia. Her renal function has improved. The patient was maintained on vancomycin which is now discontinued. Sodium has also improved and it is at 137 now from 129. The patient is not on any IV fluids. She is sitting up in a bedside chair and denies any complaints. PHYSICAL EXAMINATION: On examination, blood pressure 117/69, heart rate 130 per minute, she is afebrile. Examination of the heart S1, S2. Examination of lungs decreased breath sounds at bases. ABDOMEN: Soft, nontender. Examination of lower extremities shows trace edema bilaterally. SHUTDOWN PLANNER exam grossly intact. LABS: Show sodium 137, potassium 4.6, chloride 107 BUN 33, creatinine 1.3. ASSESSMENT: 1. Acute kidney injury associated with vancomycin toxicity with RVR currently significantly improved. Patient is nonoliguric. I will continue to maintain her off IV fluids. 2. , now improved. 3. Abdominal wall abscess, currently with drainage around the surgical incision site. 4. Chronic kidney disease stage 3 secondary to nephrosclerosis. 5. Severe cardiomyopathy, ejection fraction 20-25%. PLAN: Continue off IV fluids. Continue to encourage increased oral intake and maintain off vancomycin. May continue with the daptomycin for now. MMODL / IJN: [id number] /
[2019-11-29 16:45] LABS: Glucose,Whole Blood 319 mg/dL (75-99)
[2019-11-29 20:33] LABS: Glucose,Whole Blood 146 mg/dL (75-99)
[2019-11-29] MEDS: INSULIN DETEMIR (LEVEMIR) 100 UNIT/ML SYR SQ SCH (21:38)
--- NOTE | 2019-11-29 22:40 | PN ---
PROGRESS NOTE DATE OF SERVICE: 11/29/2019. REASON FOR FOLLOW UP: MRSA abdominal wall abscess. INTERVAL HISTORY: The patient is currently afebrile. She is breathing comfortably. Overall pain and discomfort to the abdomen has improved. Denies any chest pain or cough. No diarrhea. PHYSICAL EXAMINATION: Blood pressure 152/86, pulse of 122, temperature 98.7. She is 100% on room air. General description: The patient is an elderly female up in the chair in no distress. Respiratory system: Unlabored breathing. Clear to auscultation anteriorly. Heart S1, S2. Regular rate and rhythm. ABDOMEN: Soft. Overall wound status post drainage of the abscess. Minimal induration. No purulent drainage. LABS: Wound culture has been finalized with MRSA with creatinine 1.31. DIAGNOSTIC IMPRESSION AND PLAN: Patient with abdominal wall abscess status post surgical drainage. Culture has been MRSA. The patient did have a problem with IV vancomycin because of her kidney function. Currently on daptomycin. The patient is going to custodial and may benefit from continued daptomycin through midline. If not, use doxycycline and close outpatient followup. MMODL / IJN: [id number] /
--- NOTE | 2019-11-29 23:15 | P.PN ---
Subjective Progress Note Date: 11/29/19 Principal diagnosis: Abdominal wall abscess Ms. Swift is a 74-year-old female with past medical history of atrial fibrillation, congestive heart failure ejection fraction of 20 to 25%, diabetes mellitus, hyperlipidemia, hypertension, thyroid disorder admitted for abdominal abscess. She is status post abdominal surgery with lysis of adhesion and by what think colostomy. She is currently being treated for abdominal wall incisional abscess with IV daptomycin. On 11/28/2019 -patient is comfortably sitting in a chair at the bedside. She states that her colostomy bag has been leaking. This is causing her some discomfort in the left lower abdomen. She denies having any abdominal pain. On review of systems she denies having any fevers chills or rigors. Cardiac no chest pain or palpitations. GI denies having any nausea or vomiting. Respiratory denies having any cough or difficulty in breathing. On 11/29/2019 -patient is comfortably sitting in a chair at the bedside. She states that her hands have been dry so she is applying moisturizer. She mentioned that the ostomy nurse took care of the ostomy site and she thinks that helped her. As per the nursing staff report patient's blood sugars have been high. Her diet was regular diet, so it was changed to diabetic diet. Patient still continues to be tachycardic, cardiology adjusting her medications. Patient denies having any chest pain or palpitations. No cough or difficulty in breathing. Denies having any nausea or vomiting. On reviewing the patient's labs sodium is 137. Creatinine has been stable for the past couple of days ago 1.31. Active Medications Acetaminophen (Tylenol Tab) 650 mg PO Q6HR PRN PRN Reason: Mild Pain or Fever > 100.5 Last Admin: 11/28/19 22:10 Dose: 650 mg Documented by: Apixaban (Eliquis) 2.5 mg PO BID [facility] Last Admin: 11/29/19 09:32 Dose: 2.5 mg Documented by: Bisacodyl (Dulcolax) 10 mg RECTAL DAILY PRN PRN Reason: Constipation Calcium Carbonate (Oscal 500+D) 1 each PO DAILY [facility] Last Admin: 11/29/19 09:32 Dose: 1 each Documented by: Carvedilol (Coreg) 6.25 mg PO BID-W/MEALS [facility] Last Admin: 11/29/19 16:41 Dose: 6.25 mg Documented by: Diltiazem HCl (Cardizem Oral) 30 mg PO BID [facility] Last Admin: 11/29/19 09:56 Dose: 30 mg Documented by: Famotidine (Pepcid) 20 mg PO DAILY [facility] Last Admin: 11/29/19 09:32 Dose: 20 mg Documented by: Daptomycin 250 mg/ Sodium (Chloride) 50 mls @ 100 mls/hr IVPB Q48H [facility]; Protocol Insulin Aspart (Novolog) 0 unit SQ ACHS [facility]; Protocol Last Admin: 11/29/19 17:08 Dose: 5 unit Documented by: Insulin Detemir (Levemir) 15 unit SQ HS [facility] Last Admin: 11/28/19 20:34 Dose: 15 unit Documented by: Levothyroxine Sodium (Synthroid) 25 mcg PO DAILY@0600 [facility] Last Admin: 11/29/19 06:21 Dose: 25 mcg Documented by: Magnesium Hydroxide (Milk Of Magnesia) 2,400 mg PO DAILY PRN PRN Reason: Constipation Multi-Ingred Cream/Lotion/Oil/Oint (Triad Cream) 1 applic TOPICAL DAILY [facility] Last Admin: 11/29/19 09:32 Dose: Not Given Documented by: Naloxone HCl (Narcan) 0.2 mg IV Q2M PRN PRN Reason: Opioid Reversal Simethicone (Mylicon Drops) 20 mg MISCELLANE DAILY [facility] Last Admin: 11/29/19 09:32 Dose: Not Given Documented by: Sodium Biphosphate/Sodium Phosphate (Fleet Adult) 133 ml RECTAL Q72H PRN PRN Reason: Constipation Sulfasalazine (Azulfidine) 500 mg PO BID [facility] Stop: 03/03/20 21:01 Last Admin: 11/29/19 09:31 Dose: 500 mg Documented by: Tramadol HCl (Ultram) 50 mg PO BID PRN PRN Reason: Moderate Pain Last Admin: 11/29/19 06:34 Dose: 50 mg Documented by: Objective - Vital Signs Vital signs: Vital Signs Temp 97.8 F 11/29/19 08:00 Pulse 130 H 11/29/19 08:00 Resp 20 11/29/19 08:00 BP 117/69 11/29/19 08:00 Pulse Ox 100 11/29/19 08:00 Intake & Output 11/28/19 11/29/19 11/29/19 18:59 06:59 18:59 Intake Total 652 450 Output Total 1150 850 Balance -498 -400 Weight 64 kg Intake: Oral 652 450 Output: Urine 500 850 Stool 650 Other: Voiding Method Toilet # Voids 1 1 1 - Exam PHYSICAL EXAM: GENERAL: The patient is alert and oriented x3, not in any acute distress. Well developed, well nourished. HEENT:. Pupils are round and reactive to light. No pallor. No icterus. CARDIOVASCULAR: Tachycardia PULMONARY: Chest is clear to auscultation, no wheezing or crackles. ABDOMEN: Soft, nontender, nondistended, hypoactive BS. Excoriation of the skin around the ostomy bag. EXTREMITIES: Mild pedal edema. NEUROLOGICAL: Gross neurological examination did not reveal any focal deficits. - Labs CBC & Chem 7: 11/27/19 04:54 11/29/19 05:57 Labs: Abnormal Lab Results - Last 24 Hours (Table) 11/28/19 11/28/19 11/29/19 Range/Units 17:12 20:25 05:57 BUN 33 H (7-17) mg/dL Creatinine 1.31 H (0.52-1.04) mg/dL Glucose 128 H (74-99) mg/dL POC Glucose (mg/dL) 344 H 398 H (75-99) mg/dL 11/29/19 11/29/19 11/29/19 Range/Units 06:21 11:49 11:51 BUN (7-17) mg/dL Creatinine (0.52-1.04) mg/dL Glucose (74-99) mg/dL POC Glucose (mg/dL) 153 H 499 H 471 H (75-99) mg/dL Microbiology - Last 24 Hours (Table) 11/26/19 10:50 Gram Stain - Final Abdomen Wound Culture - Final Methicillin resist S. aureus 11/26/19 13:11 Anaerobic Culture - Preliminary Incision Assessment and Plan Assessment: ASSESSMENT Abdominal wall abscess status post I and D Wound cultures presumptive MRSA Hypovolemic hyponatremia resolving Acute kidney injury -probably secondary to vancomycin Chronic kidney disease stage III Chronic systolic congestive heart failure not in exacerbation Atrial fibrillation with rapid ventricular rate Type 2 diabetes mellitus Hypothyroidism Hyperlipidemia Mild developmental delay PLAN: Patient's wound cultures came back positive for MRSA, she is currently on daptomycin as per ID Dr. Canales's recommendation. Patient's heart rate is still in between 120s to 130s, cardiology on board and adjusting her medications- Cardiazem added today. Sodium is WNL. Patient's creatinine is stable at 1.3. Continue anticoagulation with Eliquis. Further recommendations depending on the progress of the patient.
[2019-11-30] MEDS: ACETAMINOPHEN TAB 325 MG TAB PO PRN (03:58)
[2019-11-30 06:06] LABS: Glucose,Whole Blood 80 mg/dL (75-99)
[2019-11-30] MEDS: INSULIN ASPART (NovoLOG) 100 UNIT/ML VIAL SQ SCH ×4 (06:07→21:29)
[2019-11-30] MEDS: LEVOTHYROXINE 25 MCG TAB PO SCH (06:13)
[2019-11-30] MEDS: CARVEDILOL 6.25 MG TAB PO SCH ×2 (06:13→17:57)
[2019-11-30 06:35] LABS: Basophils % (A) 0 %; Eosinophils # (A) 0.4 k/uL (0-0.7); Eosinophils % (A) 5 %; HCT 25.5 % (34.0-46.0); HGB 8.1 gm/dL (11.4-16.0); Lymphocytes # (A) 0.9 k/uL (1.0-4.8); Lymphocytes % (A) 11 %; MCH 28.8 pg (25.0-35.0); MCHC 31.8 g/dL (31.0-37.0); MCV 90.7 fL (80.0-100.0); Mean Platelet Volume 6.9; Monocytes # (A) 0.6 k/uL (0-1.0); Monocytes % (A) 7 %; Neutrophils # (A) 6.1 k/uL (1.3-7.7); Neutrophils % (A) 75 %; Platelet Count 427 k/uL (150-450); RBC 2.81 m/uL (3.80-5.40); RDW 15.1 % (11.5-15.5); WBC 8.1 k/uL (3.8-10.6)
[2019-11-30 06:44] LABS: Calcium 8.3 mg/dL (8.4-10.2); Potassium 4.3 mmol/L (3.5-5.1)
--- NOTE | 2019-11-30 09:04 | P.PN ---
Subjective Patient is seen in follow-up for acute kidney injury and hyponatremia. Sodium level stable. Renal function improving. Creatinine 1.18 today. Denies chest pain or shortness of breath. No edema. Good urine output. Vital signs are stable. General: The patient appeared well nourished and normally developed. HEENT: Head exam is unremarkable. Neck is without jugular venous distension. LUNGS: Lungs are clear to auscultation and percussion. Breath sounds decreased. HEART: Rate and Rhythm are regular. First and second heart sounds normal. No m urmurs, rubs or gallops. ABDOMEN: Soft. Nondistended. EXTREMITITES: No clubbing, cyanosis, or edema. Objective - Vital Signs Vital signs: Vital Signs Temp 98.3 F 11/30/19 06:17 Pulse 139 H 11/30/19 04:00 Resp 18 11/30/19 04:00 BP 116/59 11/30/19 04:00 Pulse Ox 95 11/30/19 04:00 Intake & Output 11/29/19 11/30/19 11/30/19 18:59 06:59 18:59 Intake Total 810 240 Output Total 800 350 Balance 10 -110 Intake: Oral 810 240 Output: Urine 800 350 Other: # Voids 2 3 # Bowel Movements 300 - Labs CBC & Chem 7: 11/30/19 05:47 11/30/19 05:47 Labs: Abnormal Lab Results - Last 24 Hours (Table) 11/29/19 11/29/19 11/29/19 Range/Units 11:49 11:51 16:43 RBC (3.80-5.40) m/uL Hgb (11.4-16.0) gm/dL Hct (34.0-46.0) % Lymphocytes # (1.0-4.8) k/uL Sodium (137-145) mmol/L BUN (7-17) mg/dL Creatinine (0.52-1.04) mg/dL Glucose (74-99) mg/dL POC Glucose (mg/dL) 499 H 471 H 319 H (75-99) mg/dL Calcium (8.4-10.2) mg/dL 11/29/19 11/30/19 11/30/19 Range/Units 20:32 05:47 05:47 RBC 2.81 L (3.80-5.40) m/uL Hgb 8.1 L (11.4-16.0) gm/dL Hct 25.5 L (34.0-46.0) % Lymphocytes # 0.9 L (1.0-4.8) k/uL Sodium 136 L (137-145) mmol/L BUN 31 H (7-17) mg/dL Creatinine 1.18 H (0.52-1.04) mg/dL Glucose 61 L (74-99) mg/dL POC Glucose (mg/dL) 146 H (75-99) mg/dL Calcium 8.3 L (8.4-10.2) mg/dL Microbiology - Last 24 Hours (Table) 11/26/19 10:50 Gram Stain - Final Abdomen Wound Culture - Final Methicillin resist S. aureus Assessment and Plan Plan: Assessment: 1. Acute kidney injury secondary to ATN secondary to vancomycin toxicity. Improved. Creatinine 1.18 today. 2. Chronic kidney disease stage III with baseline creatinine in the range of 1.1-1.3. Etiology is nephrosclerosis. 3. Abdominal wall abscess with culture positive for MRSA. Maintain on antibiotics. 4. Chronic systolic CHF with ejection fraction of 20-25%. 5. Hyponatremia secondary to acute kidney injury. Improved. 6. A. fib maintained on Cardizem and Coreg. Also on anticoagulation. 7. Anemia of chronic kidney disease. Plan: Remains off IV fluids and diuretics. Encouraged oral intake. Check iron studies. Avoid nephrotoxins. Continue to monitor renal function and urine output.
[2019-11-30] MEDS: DILTIAZEM ORAL 30 MG TAB PO SCH ×3 (09:45→21:28)
[2019-11-30] MEDS: APIXABAN 2.5 MG TABLET PO SCH ×2 (09:45→21:28)
[2019-11-30] MEDS: FAMOTIDINE 20 MG TAB PO SCH (09:45)
[2019-11-30] MEDS: CALCIUM CARB-VIT D 500MG-200UN 1 EACH TAB PO SCH (09:45)
[2019-11-30] MEDS: SIMETHICONE 40 MG/0.6 ML DROPS 2,000 MG/30 ML BOTTLE MISCELLANE SCH (09:45)
[2019-11-30] MEDS: sulfaSALAzine 500 MG TAB PO SCH ×2 (09:45→21:28)
[2019-11-30] MEDS: HYDROPHILIC CREAM 180 GM TUBE TOPICAL SCH (09:46)
[2019-11-30 11:46] LABS: Glucose,Whole Blood 211 mg/dL (75-99)
--- NOTE | 2019-11-30 13:19 | P.PN ---
Subjective Progress Note Date: 11/28/19 Ms. Swift is a 74-year-old female with past medical history of atrial fibrillation, congestive heart failure ejection fraction of 20 to 25%, diabetes mellitus, hyperlipidemia, hypertension, thyroid disorder admitted for abdominal abscess. She is status post abdominal surgery with lysis of adhesion and by what think colostomy. She is currently being treated for abdominal wall incisional abscess with IV daptomycin. On 11/28/2019 -patient is comfortably sitting in a chair at the bedside. She states that her colostomy bag has been leaking. This is causing her some discomfort in the left lower abdomen. She denies having any abdominal pain. On review of systems she denies having any fevers chills or rigors. Cardiac no chest pain or palpitations. GI denies having any nausea or vomiting. Respiratory denies having any cough or difficulty in breathing. Patient's vitals medications and labs have been reviewed. Patient continues to be tachycardic. Cardiology on board and adjusting her medications for her tachycardia. Active Medications Acetaminophen (Tylenol Tab) 650 mg PO Q6HR PRN PRN Reason: Mild Pain or Fever > 100.5 Apixaban (Eliquis) 2.5 mg PO BID [facility] Last Admin: 11/28/19 20:34 Dose: 2.5 mg Documented by: Bisacodyl (Dulcolax) 10 mg RECTAL DAILY PRN PRN Reason: Constipation Calcium Carbonate (Oscal 500+D) 1 each PO DAILY [facility] Last Admin: 11/28/19 08:42 Dose: 1 each Documented by: Carvedilol (Coreg) 6.25 mg PO BID-W/MEALS [facility] Last Admin: 11/28/19 17:41 Dose: 6.25 mg Documented by: Famotidine (Pepcid) 20 mg PO DAILY [facility] Last Admin: 11/28/19 08:42 Dose: 20 mg Documented by: Daptomycin 250 mg/ Sodium (Chloride) 50 mls @ 100 mls/hr IVPB Q24HR [facility]; Protocol Last Admin: 11/28/19 09:32 Dose: 100 mls/hr Documented by: Insulin Aspart (Novolog) 0 unit SQ ACHS [facility]; Protocol Last Admin: 11/28/19 20:34 Dose: 7 unit Documented by: Insulin Detemir (Levemir) 15 unit SQ HS [facility] Last Admin: 11/28/19 20:34 Dose: 15 unit Documented by: Levothyroxine Sodium (Synthroid) 25 mcg PO DAILY@0600 [facility] Last Admin: 11/28/19 05:51 Dose: 25 mcg Documented by: Magnesium Hydroxide (Milk Of Magnesia) 2,400 mg PO DAILY PRN PRN Reason: Constipation Multi-Ingred Cream/Lotion/Oil/Oint (Triad Cream) 1 applic TOPICAL DAILY [facility] Naloxone HCl (Narcan) 0.2 mg IV Q2M PRN PRN Reason: Opioid Reversal Simethicone (Mylicon Drops) 20 mg MISCELLANE DAILY [facility] Last Admin: 11/28/19 09:32 Dose: 20 mg Documented by: Sodium Biphosphate/Sodium Phosphate (Fleet Adult) 133 ml RECTAL Q72H PRN PRN Reason: Constipation Sulfasalazine (Azulfidine) 500 mg PO BID [facility] Stop: 03/03/20 21:01 Last Admin: 11/28/19 20:34 Dose: 500 mg Documented by: Tramadol HCl (Ultram) 50 mg PO BID PRN PRN Reason: Moderate Pain Objective - Vital Signs Vital signs: Vital Signs Temp 96.2 F L 11/28/19 08:00 Pulse 124 H 11/28/19 08:00 Resp 18 11/28/19 08:00 BP 125/65 11/28/19 08:00 Pulse Ox 92 L 11/28/19 08:00 Intake & Output 11/27/19 11/28/19 11/28/19 18:59 06:59 18:59 Intake Total 1030 450 430 Output Total 2550 1050 550 Balance -1520 -600 -120 Weight 62.5 kg Intake: Oral 1030 450 430 Output: Urine 1350 750 200 Stool 1200 300 350 Other: Voiding Method Toilet Toilet # Voids 3 - Exam PHYSICAL EXAMINATION: GENERAL: The patient is alert and oriented x3, not in any acute distress. Well developed, well nourished. HEENT:. Pupils are round and reactive to light. No pallor. No icterus. CARDIOVASCULAR: Tachycardia PULMONARY: Chest is clear to auscultation, no wheezing or crackles. ABDOMEN: Soft, nontender, nondistended, hypoactibe BS. Excoriation of the skin around the ostomy bag. MUSCULOSKELETAL: No joint swelling or deformity. EXTREMITIES: No cyanosis, clubbing, or pedal edema. NEUROLOGICAL: Gross neurological examination did not reveal any focal deficits. - Labs CBC & Chem 7: 11/27/19 04:54 11/28/19 05:39 Labs: Abnormal Lab Results - Last 24 Hours (Table) 11/27/19 11/27/19 11/28/19 Range/Units 16:55 20:00 05:37 BUN (7-17) mg/dL Creatinine (0.52-1.04) mg/dL Glucose (74-99) mg/dL POC Glucose (mg/dL) 438 H 343 H 224 H (75-99) mg/dL 11/28/19 11/28/19 Range/Units 05:39 11:50 BUN 34 H (7-17) mg/dL Creatinine 1.31 H (0.52-1.04) mg/dL Glucose 191 H (74-99) mg/dL POC Glucose (mg/dL) 351 H (75-99) mg/dL Microbiology - Last 24 Hours (Table) 11/26/19 10:50 Gram Stain - Preliminary Abdomen Wound Culture - Preliminary Presumptive MRSA Assessment and Plan Assessment: ASSESSMENT Abdominal wall abscess status post I and D Wound cultures presumptive MRSA Hypovolemic hyponatremia resolving Acute kidney injury -probably secondary to vancomycin Chronic kidney disease stage III Chronic systolic congestive heart failure not in exacerbation Atrial fibrillation with rapid ventricular rate Type 2 diabetes mellitus Hypothyroidism Hyperlipidemia Mild developmental delay PLAN: Patient's wound cultures came back as presumptive MRSA she is currently on daptomycin as per SOLO Canales's recommendation. Patient's heart rate is still in between 120s to 130s, cardiology on board and adjusting her medications. Patient sodium trended up and it is 137 this morning. Patient's creatinine is trending down from 1.8-1.3. Continue anticoagulation with Eliquis. Further recommendations depending on the progress of the patient.
--- NOTE | 2019-11-30 13:34 | PN ---
PROGRESS NOTE Mrs. Swift is in atrial flutter, rate is in the 100 to 120. She had an abdominal wall abscess which is improving. Clinically, she feels better. I am going to increase the Cardizem from 30 to 60 mg t.i.d. Vitals are stable. Heart rate is faster. JVD is evident 1 cm. No carotid bruit. S1, S2 with tachycardia noted. Short systolic murmur noted. Lungs reveal improved air entry. Abdominal exam was deferred. Plan is to increase Cardizem to 60 mg t.i.d. continue all her other medication as before. Patient has has underlying sick sinus syndrome and therefore I will be very slow with rate control and not be too aggressive given the fact she had a significant bradycardia in the past. MMODL / IJN: [id number] /
--- NOTE | 2019-11-30 14:13 | P.PN ---
Subjective Progress Note Date: 11/30/19 CHIEF COMPLAINT: Abdominal wall abscess HISTORY OF PRESENT ILLNESS: 74-year-old female who is status post incision and drainage of abdominal wall abscess performed on 11/26/2019. Patient examined at the bedside this morning. She reports mild abdominal pain. Dressing is clean dry and intact. PHYSICAL EXAM: VITAL SIGNS: Reviewed. GENERAL: Well-developed in no acute distress. HEENT: No sclera icterus. Extraocular movements grossly intact. Moist buccal mucosa. Head is atraumatic, normocephalic. ABDOMEN: Soft. Nondistended. Mild tenderness. Ostomy with stool noted. Dressing clean dry intact. NEUROLOGIC: Alert and oriented. Cranial nerves II through XII grossly intact. ASSESSMENT: 1. Abdominal wall abscess, status post incision and drainage PLAN: -Continue local wound care -Case discussed with Dr. Canales. Will order midline for 10 days of Dapto outpatient -Anticipate discharge tomorrow Nurse practitioner note has been reviewed by physician. Signing provider agrees with the documented findings, assessment, and plan of care. Objective - Vital Signs Vital signs: Vital Signs Temp 98.3 F 11/30/19 06:17 Pulse 139 H 11/30/19 04:00 Resp 18 11/30/19 04:00 BP 116/59 11/30/19 04:00 Pulse Ox 95 11/30/19 04:00 Intake & Output 11/29/19 11/30/19 11/30/19 18:59 06:59 18:59 Intake Total 810 240 Output Total 800 350 Balance 10 -110 Intake: Oral 810 240 Output: Urine 800 350 Other: # Voids 2 3 # Bowel Movements 300 - Labs CBC & Chem 7: 11/30/19 05:47 11/30/19 05:47 Labs: Abnormal Lab Results - Last 24 Hours (Table) 11/29/19 11/29/19 11/29/19 Range/Units 11:49 11:51 16:43 RBC (3.80-5.40) m/uL Hgb (11.4-16.0) gm/dL Hct (34.0-46.0) % Lymphocytes # (1.0-4.8) k/uL Sodium (137-145) mmol/L BUN (7-17) mg/dL Creatinine (0.52-1.04) mg/dL Glucose (74-99) mg/dL POC Glucose (mg/dL) 499 H 471 H 319 H (75-99) mg/dL Calcium (8.4-10.2) mg/dL 11/29/19 11/30/19 11/30/19 Range/Units 20:32 05:47 05:47 RBC 2.81 L (3.80-5.40) m/uL Hgb 8.1 L (11.4-16.0) gm/dL Hct 25.5 L (34.0-46.0) % Lymphocytes # 0.9 L (1.0-4.8) k/uL Sodium 136 L (137-145) mmol/L BUN 31 H (7-17) mg/dL Creatinine 1.18 H (0.52-1.04) mg/dL Glucose 61 L (74-99) mg/dL POC Glucose (mg/dL) 146 H (75-99) mg/dL Calcium 8.3 L (8.4-10.2) mg/dL Microbiology - Last 24 Hours (Table) 11/26/19 10:50 Gram Stain - Final Abdomen Wound Culture - Final Methicillin resist S. aureus
[2019-11-30 15:10] LABS: % Iron Saturation 8.51 (12.00-45.00)
[2019-11-30 16:51] LABS: Glucose,Whole Blood 256 mg/dL (75-99)
--- NOTE | 2019-11-30 18:09 | PN ---
PROGRESS NOTE DATE OF SERVICE: 11/30/2019 REASON FOR FOLLOWUP: MRSA abdominal wall abscess. INTERVAL HISTORY: The patient did have a temperature of 100.1 this morning. The patient has been afebrile since then. She is complaining of some pain to the abdominal wall at the area of drainage. Denies having any chest pain or shortness of breath or cough. PHYSICAL EXAMINATION: Her blood pressure is 129/70 with a pulse of 130, temperature 97.8. She is 100% on room air. General description is an elderly female up in the chair in no distress. RESPIRATORY SYSTEM: Unlabored breathing. Clear to auscultation anteriorly. HEART: S1, S2. Regular rate and rhythm. ABDOMEN: Soft. Minimal edema around the incision site. No purulent drainage. LABS: Hemoglobin 8.1, white count 8.1. Creatinine is 1.18 with overall improvement of her . Abdominal cultures with MRSA. DIAGNOSTIC IMPRESSION AND PLAN: Patient with abdominal wall abscess, status post drainage, positive for methicillin- resistant Staphylococcus aureus. Patient did have problems with vancomycin and is currently on daptomycin. In view of overall improvement of kidney function, the dose should be adjusted to daily. Will get a midline to continue with IV daptomycin for about 10 days. Local care with dry Aquacel Silver dressing. Surgeon at the bedside. Care was discussed with him. MMODL / IJN: [id number] /
[2019-11-30 20:43] LABS: Glucose,Whole Blood 301 mg/dL (75-99)
[2019-11-30] MEDS: INSULIN DETEMIR (LEVEMIR) 100 UNIT/ML SYR SQ SCH (21:28)
--- NOTE | 2019-12-01 00:02 | P.PN ---
Subjective Progress Note Date: 11/30/19 Principal diagnosis: Abdominal wall abscess Ms. Swift is a 74-year-old female with past medical history of atrial fibrillation, congestive heart failure ejection fraction of 20 to 25%, diabetes mellitus, hyperlipidemia, hypertension, thyroid disorder admitted for abdominal abscess. She is status post abdominal surgery with lysis of adhesion and by what think colostomy. She is currently being treated for abdominal wall incisional abscess with IV daptomycin. On 11/28/2019 -patient is comfortably sitting in a chair at the bedside. She states that her colostomy bag has been leaking. This is causing her some discomfort in the left lower abdomen. She denies having any abdominal pain. On review of systems she denies having any fevers chills or rigors. Cardiac no chest pain or palpitations. GI denies having any nausea or vomiting. Respiratory denies having any cough or difficulty in breathing. On 11/29/2019 -patient is comfortably sitting in a chair at the bedside. She states that her hands have been dry so she is applying moisturizer. She mentioned that the ostomy nurse took care of the ostomy site and she thinks that helped her. As per the nursing staff report patient's blood sugars have been high. Her diet was regular diet, so it was changed to diabetic diet. Patient still continues to be tachycardic, cardiology adjusting her medications. Patient denies having any chest pain or palpitations. No cough or difficulty in breathing. Denies having any nausea or vomiting. On reviewing the patient's labs sodium is 137. Creatinine has been stable for the past couple of days ago 1.31. On 11/30/19 - No new complains. Patient's vitals medications and labs have been reviewed. Patient continues to be tachycardic. Cardiology on board and adjusting her medications for her tachycardia. Active Medications Acetaminophen (Tylenol Tab) 650 mg PO Q6HR PRN PRN Reason: Mild Pain or Fever > 100.5 Last Admin: 11/30/19 03:58 Dose: 650 mg Documented by: Apixaban (Eliquis) 2.5 mg PO BID [facility] Last Admin: 11/30/19 21:28 Dose: 2.5 mg Documented by: Bisacodyl (Dulcolax) 10 mg RECTAL DAILY PRN PRN Reason: Constipation Calcium Carbonate (Oscal 500+D) 1 each PO DAILY [facility] Last Admin: 11/30/19 09:45 Dose: 1 each Documented by: Carvedilol (Coreg) 6.25 mg PO BID-W/MEALS [facility] Last Admin: 11/30/19 17:57 Dose: 6.25 mg Documented by: Diltiazem HCl (Cardizem Oral) 60 mg PO TID [facility] Last Admin: 11/30/19 21:28 Dose: 60 mg Documented by: Famotidine (Pepcid) 20 mg PO DAILY [facility] Last Admin: 11/30/19 09:45 Dose: 20 mg Documented by: Daptomycin 250 mg/ Sodium (Chloride) 50 mls @ 100 mls/hr IVPB DAILY [facility]; Protocol Last Admin: 11/30/19 17:58 Dose: 100 mls/hr Documented by: Insulin Aspart (Novolog) 0 unit SQ ACHS [facility]; Protocol Last Admin: 11/30/19 21:29 Dose: 5 unit Documented by: Insulin Detemir (Levemir) 15 unit SQ HS [facility] Last Admin: 11/30/19 21:28 Dose: 15 unit Documented by: Levothyroxine Sodium (Synthroid) 25 mcg PO DAILY@0600 [facility] Last Admin: 11/30/19 06:13 Dose: 25 mcg Documented by: Magnesium Hydroxide (Milk Of Magnesia) 2,400 mg PO DAILY PRN PRN Reason: Constipation Multi-Ingred Cream/Lotion/Oil/Oint (Triad Cream) 1 applic TOPICAL DAILY [facility] Last Admin: 11/30/19 09:46 Dose: 1 applic Documented by: Naloxone HCl (Narcan) 0.2 mg IV Q2M PRN PRN Reason: Opioid Reversal Simethicone (Mylicon Drops) 20 mg MISCELLANE DAILY [facility] Last Admin: 11/30/19 09:45 Dose: 20 mg Documented by: Sodium Biphosphate/Sodium Phosphate (Fleet Adult) 133 ml RECTAL Q72H PRN PRN Reason: Constipation Sulfasalazine (Azulfidine) 500 mg PO BID [facility] Stop: 03/03/20 21:01 Last Admin: 11/30/19 21:28 Dose: 500 mg Documented by: Tramadol HCl (Ultram) 50 mg PO BID PRN PRN Reason: Moderate Pain Last Admin: 11/29/19 06:34 Dose: 50 mg Documented by: Objective - Vital Signs Vital signs: Vital Signs Temp 96.8 F L 11/30/19 08:00 Pulse 130 H 11/30/19 08:00 Resp 18 11/30/19 04:00 BP 129/70 11/30/19 08:00 Pulse Ox 100 11/30/19 08:00 Intake & Output 11/29/19 11/30/19 11/30/19 18:59 06:59 18:59 Intake Total 810 240 460 Output Total 800 350 Balance 10 -110 460 Intake: Oral 810 240 460 Output: Urine 800 350 Other: # Voids 2 3 # Bowel Movements 300 - Exam PHYSICAL EXAM: GENERAL: The patient is alert and oriented x3, not in any acute distress. Well developed, well nourished. HEENT:. Pupils are round and reactive to light. No pallor. No icterus. CARDIOVASCULAR: Tachycardia PULMONARY: Chest is clear to auscultation, no wheezing or crackles. ABDOMEN: Soft, nontender, nondistended, hypoactibe BS. Excoriation of the skin around the ostomy bag. MUSCULOSKELETAL: No joint swelling or deformity. EXTREMITIES: No cyanosis, clubbing, or pedal edema. NEUROLOGICAL: Gross neurological examination did not reveal any focal deficits. - Labs CBC & Chem 7: 11/30/19 05:47 11/30/19 05:47 Labs: Abnormal Lab Results - Last 24 Hours (Table) 11/29/19 11/29/19 11/30/19 Range/Units 16:43 20:32 05:47 RBC (3.80-5.40) m/uL Hgb (11.4-16.0) gm/dL Hct (34.0-46.0) % Lymphocytes # (1.0-4.8) k/uL Sodium 136 L (137-145) mmol/L BUN 31 H (7-17) mg/dL Creatinine 1.18 H (0.52-1.04) mg/dL Glucose 61 L (74-99) mg/dL POC Glucose (mg/dL) 319 H 146 H (75-99) mg/dL Calcium 8.3 L (8.4-10.2) mg/dL 11/30/19 11/30/19 Range/Units 05:47 11:44 RBC 2.81 L (3.80-5.40) m/uL Hgb 8.1 L (11.4-16.0) gm/dL Hct 25.5 L (34.0-46.0) % Lymphocytes # 0.9 L (1.0-4.8) k/uL Sodium (137-145) mmol/L BUN (7-17) mg/dL Creatinine (0.52-1.04) mg/dL Glucose (74-99) mg/dL POC Glucose (mg/dL) 211 H (75-99) mg/dL Calcium (8.4-10.2) mg/dL Assessment and Plan Assessment: ASSESSMENT Abdominal wall abscess status post I and D Wound cultures presumptive MRSA Hypovolemic hyponatremia resolving Acute kidney injury -probably secondary to vancomycin Chronic kidney disease stage III Chronic systolic congestive heart failure not in exacerbation Atrial fibrillation with rapid ventricular rate Type 2 diabetes mellitus Hypothyroidism Hyperlipidemia Mild developmental delay PLAN: Patient's wound cultures came back as presumptive MRSA she is currently on daptomycin as per ID Dr. Canales's recommendation. Patient's heart rate is still in between 120s to 130s, Cardiazem dose has been increased to 60 mg TID. Patient sodium stable at 136 this morning. Patient's creatinine is trending down from 1.3 to 1.1 today. Continue anticoagulation with Eliquis. Further recommendations depending on the progress of the patient.
[2019-12-01 03:37] VITALS: RESP 18
[2019-12-01 06:16] LABS: Glucose,Whole Blood 160 mg/dL (75-99)
[2019-12-01 06:28] LABS: Basophils % (A) 0 %; Eosinophils # (A) 0.4 k/uL (0-0.7); Eosinophils % (A) 5 %; HCT 25.4 % (34.0-46.0); Lymphocytes # (A) 0.9 k/uL (1.0-4.8); Lymphocytes % (A) 14 %; MCH 28.8 pg (25.0-35.0); MCHC 31.4 g/dL (31.0-37.0); MCV 91.6 fL (80.0-100.0); Mean Platelet Volume 7.2; Monocytes # (A) 0.5 k/uL (0-1.0); Monocytes % (A) 7 %; Neutrophils # (A) 4.6 k/uL (1.3-7.7); Neutrophils % (A) 70 %; Platelet Count 376 k/uL (150-450); RBC 2.77 m/uL (3.80-5.40); RDW 15.7 % (11.5-15.5); WBC 6.5 k/uL (3.8-10.6)
[2019-12-01] MEDS: CARVEDILOL 6.25 MG TAB PO SCH (06:32)
[2019-12-01] MEDS: INSULIN ASPART (NovoLOG) 100 UNIT/ML VIAL SQ SCH ×2 (06:32→13:00)
[2019-12-01] MEDS: LEVOTHYROXINE 25 MCG TAB PO SCH (06:32)
[2019-12-01 06:43] LABS: Calcium 8.3 mg/dL (8.4-10.2); Potassium 4.5 mmol/L (3.5-5.1)
--- NOTE | 2019-12-01 09:03 | P.PN ---
Subjective Patient is seen in follow-up for acute kidney injury and hyponatremia. Sodium level stable. Renal function improving. Creatinine 1.02 today. Denies chest pain or shortness of breath. No edema. Good urine output. Vital signs are stable. General: The patient appeared well nourished and normally developed. HEENT: Head exam is unremarkable. Neck is without jugular venous distension. LUNGS: Lungs are clear to auscultation and percussion. Breath sounds decreased. HEART: Rate and Rhythm are regular. First and second heart sounds normal. No m urmurs, rubs or gallops. ABDOMEN: Soft. Nondistended. EXTREMITITES: No clubbing, cyanosis, or edema. Objective - Vital Signs Vital signs: Vital Signs Temp 98.5 F 12/01/19 03:33 Pulse 78 12/01/19 03:33 Resp 18 12/01/19 03:33 BP 122/60 12/01/19 03:33 Pulse Ox 99 12/01/19 03:33 Intake & Output 11/30/19 12/01/19 12/01/19 18:59 06:59 18:59 Intake Total 700 240 240 Output Total 300 1100 Balance 400 -860 240 Weight 61 kg Intake: Oral 700 240 240 Output: Urine 300 900 Stool 200 Other: # Voids 1 1 # Bowel Movements 1 1 - Labs CBC & Chem 7: 12/01/19 05:45 12/01/19 05:45 Labs: Abnormal Lab Results - Last 24 Hours (Table) 11/30/19 11/30/19 11/30/19 Range/Units 05:47 11:44 16:48 RBC (3.80-5.40) m/uL Hgb (11.4-16.0) gm/dL Hct (34.0-46.0) % RDW (11.5-15.5) % Lymphocytes # (1.0-4.8) k/uL Sodium (137-145) mmol/L BUN (7-17) mg/dL Glucose (74-99) mg/dL POC Glucose (mg/dL) 211 H 256 H (75-99) mg/dL Calcium (8.4-10.2) mg/dL Iron 20 L (50-170) ug/dL % Saturation 8.51 L (12.00-45.00) 11/30/19 12/01/1920 Range/Units 20:42 05:45 05:45 RBC 2.77 L (3.80-5.40) m/uL Hgb 8.0 L (11.4-16.0) gm/dL Hct 25.4 L (34.0-46.0) % RDW 15.7 H (11.5-15.5) % Lymphocytes # 0.9 L (1.0-4.8) k/uL Sodium 135 L (137-145) mmol/L BUN 36 H (7-17) mg/dL Glucose 155 H (74-99) mg/dL POC Glucose (mg/dL) 301 H (75-99) mg/dL Calcium 8.3 L (8.4-10.2) mg/dL Iron (50-170) ug/dL % Saturation (12.00-45.00) 12/01/19 Range/Units 06:15 RBC (3.80-5.40) m/uL Hgb (11.4-16.0) gm/dL Hct (34.0-46.0) % RDW (11.5-15.5) % Lymphocytes # (1.0-4.8) k/uL Sodium (137-145) mmol/L BUN (7-17) mg/dL Glucose (74-99) mg/dL POC Glucose (mg/dL) 160 H (75-99) mg/dL Calcium (8.4-10.2) mg/dL Iron (50-170) ug/dL % Saturation (12.00-45.00) Microbiology - Last 24 Hours (Table) 11/26/19 13:11 Anaerobic Culture - Final Incision Assessment and Plan Plan: Assessment: 1. Acute kidney injury secondary to ATN secondary to vancomycin toxicity. Improved. Creatinine 1.02 today. 2. Chronic kidney disease stage III with baseline creatinine in the range of 1.1-1.3. Etiology is nephrosclerosis. 3. Abdominal wall abscess with culture positive for MRSA. Maintain on antibiotics. 4. Chronic systolic CHF with ejection fraction of 20-25%. 5. Hyponatremia secondary to acute kidney injury. Improved. 6. A. fib maintained on Cardizem and Coreg. Also on anticoagulation. 7. Anemia of chronic kidney disease. Iron deficiency noted. Plan: Remains off IV fluids and diuretics. Encouraged oral intake. Add Aranesp. Hold off on IV iron due to bacteremia. Avoid nephrotoxins. Continue to monitor renal function and urine output.
[2019-12-01] MEDS ORDERED: DARBEPOETIN ALFA 40 MCG/0.4 ML SYRINGE SQ SCH (10:00)
[2019-12-01] MEDS: DILTIAZEM ORAL 30 MG TAB PO SCH (10:28)
[2019-12-01] MEDS: FAMOTIDINE 20 MG TAB PO SCH (10:28)
[2019-12-01] MEDS: APIXABAN 2.5 MG TABLET PO SCH (10:28)
[2019-12-01] MEDS: CALCIUM CARB-VIT D 500MG-200UN 1 EACH TAB PO SCH (10:28)
[2019-12-01] MEDS: SIMETHICONE 40 MG/0.6 ML DROPS 2,000 MG/30 ML BOTTLE MISCELLANE SCH (10:29)
[2019-12-01] MEDS: HYDROPHILIC CREAM 180 GM TUBE TOPICAL SCH (10:29)
[2019-12-01 11:08] VITALS: BP 127/67; TEMP 96.7
[2019-12-01 11:47] LABS: Glucose,Whole Blood 330 mg/dL (75-99)
--- NOTE | 2019-12-01 12:35 | PN ---
PROGRESS NOTE Mrs. Swift is a 74-year-old lady who was admitted with abdominal wound infection. She is doing better in this regard. I am seeing her because of chronic atrial fib and rate was faster today with a combination of Coreg and 60 mg t.i.d. of Cardizem. Her rate is in the 70 to 80s. I am recommending that we cut back the Coreg to 3.125 mg b.i.d. Continue Cardizem at 60 mg t.i.d. We will increase activity and whenever it is okayed by her admitting doctor and consultants she can be discharged. Cardiac-paredes, she is stable. She will see Dr. Hu upon her discharge in the next 3 weeks or so. Vitals are stable. JVD is 1 cm. No carotid bruit. S1, S2 with irregular rate and rhythm noted. Lungs reveal diminished air entry. Abdomen and lower extremity exam is unchanged. MMODL / IJN: [id number] /
[2019-12-01] MEDS: sulfaSALAzine 500 MG TAB PO SCH (13:00)
[2019-12-01 13:19] VITALS: BMI 30.2
--- NOTE | 2019-12-01 14:04 | P.DS ---
Providers Date of admission: 11/25/19 15:55 Expected date of discharge: 12/01/19 Attending physician: Cedric Quintanilla Consults: 11/25/19 15:55 Consult Physician Routine Consulting Provider: Rajat Stewart Consult Reason/Comments: Medical management Do you want consulting provider notified?: Yes 11/26/19 10:21 Consult Physician Routine Consulting Provider: Madison Cline Consult Reason/Comments: hyponatremia Do you want consulting provider notified?: Yes 11/26/19 12:33 Consult Physician Routine Consulting Provider: Jamaal Canales Consult Reason/Comments: abdominal abscess Do you want consulting provider notified?: Already Contacted 11/27/19 08:28 Consult Physician Routine Consulting Provider: Kath Welsh Consult Reason/Comments: aflutter/ uncontrolled Do you want consulting provider notified?: Yes 11/27/19 08:31 Consult Physician Routine Consulting Provider: Kath Welsh Consult Reason/Comments: tachycardia, chest pain Do you want consulting provider notified?: Already Contacted Primary care physician: Adolfo Wang Hospital Course: 74-year-old female who is status post incision and drainage of abdominal wall abscess performed on 11/26/[address] Quintanilla. Patient was followed by infectious disease during hospitalization. Her cultures are positive for MRSA. She received a midline IV and is to receive daptomycin for 10 days at the time of discharge. She is stable for discharge to [facility] today. Please see EMR for further hospital course details. Discharge Diagnosis: 1. Abdominal wall abscess, status post incision and drainage Nurse practitioner note has been reviewed by physician. Signing provider agrees with the documented findings, assessment, and plan of care. Patient Condition at Discharge: Stable Plan - Discharge Summary New Discharge Prescriptions: New Diltiazem Oral [Cardizem*] 60 mg PO TID tab DAPTOmycin [Cubicin] 250 mg IVPB DAILY #10 vial Acetaminophen Tab [Tylenol] 650 mg PO Q6HR PRN tab PRN Reason: Mild Pain Or Fever > 100.5 Continue Multivitamins, Thera [Multivitamin (formulary)] 1 tab PO DAILY Atorvastatin [Lipitor] 10 mg PO HS Calcium Carbonate/Vitamin D3 [Calcium 600-Vit D3 400 Tablet] 1 tab PO DAILY Magnesium Oxide [Mag-Ox] 400 mg PO BID Levothyroxine Sodium [Synthroid] 25 mcg PO DAILY@0600 Calcium Acetate [PhosLo] 667 mg PO DAILY Loratadine 10 mg PO DAILY Apixaban [Eliquis] 2.5 mg PO BID Famotidine [Pepcid] 20 mg PO DAILY tab Sodium Chloride Tab 1 gm PO DAILY Insulin Detemir [Levemir Flextouch] 10 unit SQ HS Carbamide Peroxide [Debrox Otic] 10 drops BOTH EARS BID Simethicone 40 mg/0.6 ml Drops [Mylicon Drops] 20 mg MISCELLANE DAILY Ondansetron [Zofran ODT] 4 mg PO AC-TID Dextrose Chew [Glucose Chew Tab] 4 - 16 gm PO ONCE PRN PRN Reason: Hypocalcemia Glucagon Emergency Kit 1 mg IM ONCE PRN PRN Reason: Hypoglycemia Furosemide [Lasix] 40 mg PO DAILY@0900 Furosemide [Lasix] 20 mg PO DAILY@1300 Carvedilol [Coreg] 6.25 mg PO AC-BID Na Phos,M-B/Na Phos,Di-Ba [Fleet Adult] 133 ml RECTAL Q72H PRN PRN Reason: Constipation Bisacodyl [Dulcolax] 10 mg RECTAL DAILY PRN PRN Reason: Constipation Magnesium Hydroxide [Milk of Magnesia Concentrate] 2,400 mg PO DAILY PRN PRN Reason: Constipation Discontinued Lisinopril [Zestril] 2.5 mg PO DAILY tab sulfaSALAzine [Azulfidine] 500 mg PO BID traMADol HCl [Ultram] 50 mg PO BID Discharge Medication List Atorvastatin [Lipitor] 10 mg PO HS 06/03/18 [History] Calcium Acetate [PhosLo] 667 mg PO DAILY 06/03/18 [History] Calcium Carbonate/Vitamin D3 [Calcium 600-Vit D3 400 Tablet] 1 tab PO DAILY 06/03/18 [History] Levothyroxine Sodium [Synthroid] 25 mcg PO DAILY@0600 06/03/18 [History] Magnesium Oxide [Mag-Ox] 400 mg PO BID 06/03/18 [History] Multivitamins, Thera [Multivitamin (formulary)] 1 tab PO DAILY 06/03/18 [History] Loratadine 10 mg PO DAILY 03/31/19 [History] Apixaban [Eliquis] 2.5 mg PO BID 05/31/19 [History] Famotidine [Pepcid] 20 mg PO DAILY tab 06/16/19 [Rx] Bisacodyl [Dulcolax] 10 mg RECTAL DAILY PRN 11/25/19 [History] Carbamide Peroxide [Debrox Otic] 10 drops BOTH EARS BID 11/25/19 [History] Carvedilol [Coreg] 6.25 mg PO AC-BID 11/25/19 [History] Dextrose Chew [Glucose Chew Tab] 4 - 16 gm PO ONCE PRN 11/25/19 [History] Furosemide [Lasix] 20 mg PO DAILY@1300 11/25/19 [History] Furosemide [Lasix] 40 mg PO DAILY@0900 11/25/19 [History] Glucagon Emergency Kit 1 mg IM ONCE PRN 11/25/19 [History] Insulin Detemir [Levemir Flextouch] 10 unit SQ HS 11/25/19 [History] Magnesium Hydroxide [Milk of Magnesia Concentrate] 2,400 mg PO DAILY PRN 11/25/19 [History] Na Phos,M-B/Na Phos,Di-Ba [Fleet Adult] 133 ml RECTAL Q72H PRN 11/25/19 [History] Ondansetron [Zofran ODT] 4 mg PO AC-TID 11/25/19 [History] Simethicone 40 mg/0.6 ml Drops [Mylicon Drops] 20 mg MISCELLANE DAILY 11/25/19 [History] Sodium Chloride Tab 1 gm PO DAILY 11/25/19 [History] Acetaminophen Tab [Tylenol] 650 mg PO Q6HR PRN tab 12/01/19 [Rx] DAPTOmycin [Cubicin] 250 mg IVPB DAILY #10 vial 12/01/19 [Rx] Diltiazem Oral [Cardizem*] 60 mg PO TID tab 12/01/19 [Rx] Follow up Appointment(s)/Referral(s): Adolfo Wang MD [Primary Care Provider] - 1-2 days Cedric Quintanilla MD [STAFF PHYSICIAN] - 1 Week Activity/Diet/Wound Care/Special Instructions: [facility] extended care Abdomial Wound: Abdominal Skin tear/open blistered area care: Ostomy care Recommendations: Last pouching system change: 11.28.2019 Convatec one piece cut [facility][id number] [facility] No sting prep pads Cavilon (10) from the hospital Ostomy powder (1) from the hospital
--- NOTE | 2019-12-01 15:41 | PN ---
PROGRESS NOTE DATE OF SERVICE: 12/01/2019 REASON FOR FOLLOWUP: Abdominal abscess, MRSA. INTERVAL HISTORY: The patient is currently afebrile. She has been breathing comfortably. Denies having any chest pain or cough. No nausea, no vomiting. Abdominal pain is currently controlled. No vomiting or diarrhea. PHYSICAL EXAMINATION: Blood pressure 120/57, pulse of 112, temperature of 96.7, she is 97% on room air. General description is an elderly female up in the chair, in no distress. RESPIRATORY SYSTEM: Unlabored breathing, clear to auscultation anteriorly. HEART: S1, S2. Regular rate and rhythm. ABDOMEN: Soft. On examination, she was noticed to have leakage from her colostomy bag that has been contaminated her abdominal wound. LABS: Hemoglobin 8, white count 6.5, BUN of 36, creatinine 1.02. DIAGNOSTIC IMPRESSION AND PLAN: Patient with abdominal wall abscess, status post drainage. Culture with MRSA. Patient to continue with daptomycin 250 p.o. daily for 10 days. Local care with Aquacel packing of the wound and close outpatient followup. MMODL / IJN: [id number] /
[2019-12-01] MEDS ORDERED: CARVEDILOL 3.125 MG TAB PO SCH (17:30)
[2019-12-01 18:24] VITALS: PULSE 80
== END 2019-12-01 17:56 | DRG 856 ==
LOC: EC 14:22 → 3SCARD 15:55
PROVIDERS: ADMIT Surgery; ATTEND Surgery
PROC: 0W9F0ZZ Drainage of Abdominal Wall, Open Approach (ICD-10-PCS; 2019-11-26)
PROC: 05HB33Z Insertion of Infusion Device into Right Basilic Vein, Percutaneous Approach (ICD-10-PCS; principal; 2019-11-30 16:20)
DX: T81.41XA Infection following a procedure, superficial incisional surgical site, initial encounter (principal); N17.0 Acute kidney failure with tubular necrosis; L02.211 Cutaneous abscess of abdominal wall; I50.22 Chronic systolic (congestive) heart failure; I48.19 Other persistent atrial fibrillation; I13.0 Hypertensive heart and chronic kidney disease with heart failure and stage 1 through stage 4 chronic kidney disease, or unspecified chronic kidney disease; I42.8 Other cardiomyopathies; I48.92 Unspecified atrial flutter; E87.1 Hypo-osmolality and hyponatremia; L03.311 Cellulitis of abdominal wall; E78.5 Hyperlipidemia, unspecified; E11.22 Type 2 diabetes mellitus with diabetic chronic kidney disease; E03.9 Hypothyroidism, unspecified; E86.1 Hypovolemia; R62.50 Unspecified lack of expected normal physiological development in childhood; N18.3 Chronic kidney disease, stage 3 (moderate); B95.62 Methicillin resistant Staphylococcus aureus infection as the cause of diseases classified elsewhere; R07.89 Other chest pain; K59.00 Constipation, unspecified; D63.1 Anemia in chronic kidney disease; I49.5 Sick sinus syndrome; E11.65 Type 2 diabetes mellitus with hyperglycemia; T36.8X5A Adverse effect of other systemic antibiotics, initial encounter; Z71.3 Dietary counseling and surveillance; Z79.899 Other long term (current) drug therapy; Z79.890 Hormone replacement therapy; Z79.4 Long term (current) use of insulin; Z79.01 Long term (current) use of anticoagulants; Z93.3 Colostomy status; Z90.49 Acquired absence of other specified parts of digestive tract; Z95.0 Presence of cardiac pacemaker
CPT/HCPCS: 36410; 36415; 71046; 76937; 80048; 80053; 80202; 81001; 82728; 83540; 83550; 83880; 83935; 84100; 84295; 84300; 85025; 85027; 87070; 87075; 87077; 87186; 87205; 93005; 93306; 96360; 96365; 99285

== ENCOUNTER 2019-12-27 16:48 | Inpatient (IN) | payer MEDICARE, OTHER ==
[2019-12-27 16:57] LABS: Glucose,Whole Blood 73 mg/dL (75-99)
[2019-12-27] MEDS ORDERED: PIPERACILLIN-TAZOBACTAM 3.375 GM in SODIUM CHLORIDE 0.9% 100 ML IVPB STA (16:57)
[2019-12-27] MEDS ORDERED: HYDROmorphone 0.5 MG/0.5 ML SYRINGE IVP PRN (16:58)
[2019-12-27] MEDS ORDERED: NALOXONE 0.4 MG/ML 1 ML VIAL IV PRN (16:58)
[2019-12-27] MEDS ORDERED: ONDANSETRON 4 MG/2 ML VIAL IVP PRN (16:58)
[2019-12-27] MEDS ORDERED: DAPTOMYCIN IVPB SCH (17:00)
[2019-12-27] MEDS ORDERED: SODIUM CHLORIDE 0.9% IVPB SCH (17:00)
[2019-12-27] MEDS ORDERED: SODIUM CHLORIDE 0.9% 500 ML 500 ML IV ONE (17:01)
--- NOTE | 2019-12-27 17:11 | ED ---
General Adult HPI - General Chief complaint: Abdominal Pain Stated complaint: Abd pain Time Seen by Provider: 12/27/19 16:55 Source: patient, EMS, RN notes reviewed, old records reviewed Mode of arrival: EMS Limitations: no limitations - History of Present Illness Initial comments: 74-year-old female transferred from [place] with chief complaint of abdominal pain. Patient has history of abdominal wall abscess in this. He said on IV antibiotics at a long-term care facility. She had presented with increasing pain and several episodes of vomiting. She was found to have an enlarging abscess on CT and an elevated white blood cell count at 13.4. She was transferred for surgical evaluation as her general surgeon is at this institution. Patient states her pain is improved with time my evaluation. - Related Data Home Medications Medication Instructions Recorded Confirmed Atorvastatin [Lipitor] 10 mg PO HS 06/03/18 11/25/19 Calcium Acetate [PhosLo] 667 mg PO DAILY 06/03/18 11/25/19 Calcium Carbonate/Vitamin D3 1 tab PO DAILY 06/03/18 11/25/19 [Calcium 600-Vit D3 400 Tablet] Levothyroxine Sodium [Synthroid] 25 mcg PO DAILY@0600 06/03/18 11/25/19 Magnesium Oxide [Mag-Ox] 400 mg PO BID 06/03/18 11/25/19 Multivitamins, Thera [Multivitamin 1 tab PO DAILY 06/03/18 11/25/19 (formulary)] Loratadine 10 mg PO DAILY 03/31/19 11/25/19 Apixaban [Eliquis] 2.5 mg PO BID 05/31/19 11/25/19 Bisacodyl [Dulcolax] 10 mg RECTAL DAILY PRN 11/25/19 11/25/19 Carbamide Peroxide [Debrox Otic] 10 drops BOTH EARS BID 11/25/19 11/25/19 Carvedilol [Coreg] 6.25 mg PO AC-BID 11/25/19 11/25/19 Dextrose Chew [Glucose Chew Tab] 4 - 16 gm PO ONCE PRN 11/25/19 11/25/19 Furosemide [Lasix] 20 mg PO DAILY@1300 11/25/19 11/25/19 Furosemide [Lasix] 40 mg PO DAILY@0900 11/25/19 11/25/19 Glucagon Emergency Kit 1 mg IM ONCE PRN 11/25/19 11/25/19 Insulin Detemir [Levemir Flextouch] 10 unit SQ HS 11/25/19 11/25/19 Magnesium Hydroxide [Milk of 2,400 mg PO DAILY PRN 11/25/19 11/25/19 Magnesia Concentrate] Na Phos,M-B/Na Phos,Di-Ba [Fleet 133 ml RECTAL Q72H PRN 11/25/19 11/25/19 Adult] Ondansetron [Zofran ODT] 4 mg PO AC-TID 11/25/19 11/25/19 Simethicone 40 mg/0.6 ml Drops 20 mg MISCELLANE DAILY 11/25/19 11/25/19 [Mylicon Drops] Sodium Chloride Tab 1 gm PO DAILY 11/25/19 11/25/19 Previous Rx's Medication Instructions Recorded Famotidine [Pepcid] 20 mg PO DAILY tab 06/16/19 Acetaminophen Tab [Tylenol] 650 mg PO Q6HR PRN tab 12/01/19 DAPTOmycin [Cubicin] 250 mg IVPB DAILY #10 vial 12/01/19 Diltiazem Oral [Cardizem*] 60 mg PO TID tab 12/01/19 Allergies Allergy/AdvReac Type Severity Reaction Status Date / Time No Known Allergies Allergy Verified 11/25/19 16:10 Review of Systems ROS Statement: Those systems with pertinent positive or pertinent negative responses have been documented in the HPI. ROS Other: All systems not noted in ROS Statement are negative. Past Medical History Past Medical History: Atrial Fibrillation, Heart Failure, Diabetes Mellitus, Hyperlipidemia, Hypertension, Thyroid Disorder Additional Past Medical History / Comment(s): Mild developmental delay, the patient lives in a foster home since 1990, CHF with systolic heart failure/nonischemic cardiomyopathy, chronic atrial fibrillation, on Eliquis, hypertension, hyperlipidemia, diabetes mellitus, hypothyroidism, abdominal abscess History of Any Multi-Drug Resistant Organisms: MRSA Date of last positivie culture/infection: 11/26/19 MDRO Source:: ABDOMEN Past Surgical History: Bladder Surgery, Bowel Resection Additional Past Surgical History / Comment(s): HAS COLOSTOMY. Past Anesthesia/Blood Transfusion Reactions: Unable to Obtain Past Psychological History: No Psychological Hx Reported Smoking Status: Never smoker Past Alcohol Use History: None Reported Past Drug Use History: None Reported - Past Family History Mother Family Medical History: Unable to Obtain General Exam Limitations: no limitations General appearance: alert, in no apparent distress Head exam: Present: atraumatic, normocephalic Eye exam: Present: normal appearance, PERRL ENT exam: Present: mucous membranes dry Neck exam: Present: normal inspection. Absent: tenderness, meningismus Respiratory exam: Present: normal lung sounds bilaterally, respiratory distress Cardiovascular Exam: Present: tachycardia, irregular rhythm GI/Abdominal exam: Present: soft, distended, tenderness (Tenderness and erythema, left side lower abdomen just to the midline. Abscess just below ostomy) Extremities exam: Present: normal inspection, normal capillary refill. Absent: pedal edema Neurological exam: Present: alert, oriented X3, CN II-XII intact. Absent: motor sensory deficit Psychiatric exam: Present: normal affect, normal mood Skin exam: Present: warm, dry Course Vital Signs 12/27/19 16:57 Temperature 97.9 F Pulse Rate 125 H Respiratory 20 Rate Blood Pressure 153/90 O2 Sat by Pulse 97 Oximetry Medical Decision Making - Medical Decision Making She is initiated on antibiotics, daptomycin which she was previously on as well as Zosyn. Case discussed with Dr. Quintanilla he is familiar with the patient and will accept admission with infectious disease on consult. Laboratory testing will be repeated in the morning. - Lab Data Lab Results 12/27/19 Range/Units 16:56 POC Glucose (mg/dL) 73 L (75-99) mg/dL POC Glu Receiving Clerk ID Angelica Cerda Disposition Clinical Impression: Afib, Abdominal wall abscess Disposition: ADMITTED IP TO THIS HOSP Condition: Stable Is patient prescribed a controlled substance at d/c from ED?: No Referrals: Adolfo Wang MD [Primary Care Provider] - 1-2 days Decision to Admit Reason: Admit from EC Decision Date: 12/27/19 Decision Time: 17:12
[2019-12-27] MEDS: SODIUM CHLORIDE 0.9% 1,000 ML IV SCH (17:16)
[2019-12-27 20:43] LABS: Glucose,Whole Blood 54 mg/dL (75-99)
[2019-12-27] MEDS: INSULIN ASPART (NovoLOG) 100 UNIT/ML VIAL SQ SCH (20:46)
[2019-12-27] MEDS ORDERED: INSULIN ASPART (NovoLOG) 100 UNIT/ML VIAL SQ SCH (21:00)
[2019-12-27 21:04] LABS: Glucose,Whole Blood 52 mg/dL (75-99)
[2019-12-27 21:23] LABS: Glucose,Whole Blood 67 mg/dL (75-99)
[2019-12-27 21:38] LABS: Glucose,Whole Blood 60 mg/dL (75-99)
[2019-12-27 21:38] LABS: Glucose,Whole Blood 55 mg/dL (75-99)
[2019-12-27] MEDS ORDERED: DEXTROSE 50% SYRINGE 50 ML IVP ONE (21:41)
[2019-12-27] MEDS ORDERED: DEXTROSE 50% SYRINGE 50 ML IVP STA (21:42)
[2019-12-27 22:15] LABS: Glucose,Whole Blood 152 mg/dL (75-99)
[2019-12-27] MEDS: PIPERACILLIN-TAZOBACTAM 3.375 GM in SODIUM CHLORIDE 0.9% 100 ML IVPB SCH (23:30)
[2019-12-28] MEDS: SODIUM CHLORIDE 0.9% 1,000 ML IV SCH ×2 (05:15→17:18)
[2019-12-28] MEDS: INSULIN ASPART (NovoLOG) 100 UNIT/ML VIAL SQ SCH ×4 (07:34→20:59)
[2019-12-28 07:35] LABS: INR 1.1 (<1.2)
[2019-12-28 07:37] LABS: Basophils % (A) 0 %; Eosinophils # (A) 0.2 k/uL (0-0.7); Eosinophils % (A) 2 %; HCT 33.7 % (34.0-46.0); HGB 10.8 gm/dL (11.4-16.0); Hypochromasia Slight; Lymphocytes # (A) 0.1 k/uL (1.0-4.8); Lymphocytes % (A) 1 %; MCH 30.5 pg (25.0-35.0); MCV 95.3 fL (80.0-100.0); Mean Platelet Volume 7.1; Monocytes # (A) 0.2 k/uL (0-1.0); Monocytes % (A) 1 %; Neutrophils # (A) 11.8 k/uL (1.3-7.7); Neutrophils % (A) 96 %; Platelet Count 432 k/uL (150-450); RBC 3.53 m/uL (3.80-5.40); RDW 15.6 % (11.5-15.5); WBC 12.3 k/uL (3.8-10.6)
[2019-12-28 07:41] LABS: Glucose,Whole Blood 116 mg/dL (75-99)
[2019-12-28 07:43] LABS: Albumin 2.9 g/dL (3.5-5.0); Calcium 8.7 mg/dL (8.4-10.2); Magnesium 1.9 mg/dL (1.6-2.3); Potassium 4.4 mmol/L (3.5-5.1); Total Bilirubin 0.8 mg/dL (0.2-1.3); Total Protein 5.7 g/dL (6.3-8.2)
[2019-12-28] MEDS: PIPERACILLIN-TAZOBACTAM 3.375 GM in SODIUM CHLORIDE 0.9% 100 ML IVPB SCH ×2 (07:53→21:00)
[2019-12-28] MEDS ORDERED: ACETAMINOPHEN TAB 325 MG TAB PO PRN (10:12)
[2019-12-28] MEDS ORDERED: BISACODYL 10 MG SUPP RECTAL PRN (10:12)
--- NOTE | 2019-12-28 10:21 | P.CONS ---
History of Present Illness - History of Present Illness This is a pleasant 74 years old male with past medical history of chronic atrial fibrillation on Eliquis, chronic systolic nonischemic heart failure, diabetes mellitus, hypertension, hypothyroidism. Patient presents with abdominal pain and vomiting. Patient was transferred from [facility] for abdominal pain related to her large abdominal abscess, she was transferred to this hospital because her primary surgeon Dr. Arango works here. 11/24-11/30 she was admitted for abdominal wall abscess, secondary to MRSA at that time she was discharged on 10 days of daptomycin At [place] her CT of the abdomen and pelvis without contrast showing mild increase in the size of abscess 11 x 4.5 x 6.4 cm, however there was no IV contrast Vitals stable and patient is afebrile. WBC is 12.3 K, hemoglobin 10.8, platelets normal, INR is normal. BMP is unremarkable except for elevated creatinine of 2.05, with baseline 1.0-1.5, liver enzymes not elevated. Glucose was low yesterday 52-73 In the emergency room patient was started on Zosyn on normal saline at 75 mL per Infectious disease already been consulted Her medication review was on at home she was taken Lantus 18 units every morning and NovoLog with meals as 4, 5, 6 units respectively. Review of Systems CONSTITUTIONAL: No fever, no malaise, no fatigue. HEENT: No recent visual problems or hearing problems. Denied any sore throat. CARDIOVASCULAR: No orthopnea, PND, no palpitations, no syncope. PULMONARY: No shortness of breath, no cough, no hemoptysis. GASTROINTESTINAL: No diarrhea, no nausea, no vomiting, no abdominal pain. Normoactive bowel sounds. NEUROLOGICAL: No headaches, no weakness, no numbness. HEMATOLOGICAL: Denies any bleeding or petechiae. GENITOURINARY: Denies any burning micturition, frequency, or urgency. MUSCULOSKELETAL/RHEUMATOLOGICAL: Denies any joint pain, swelling, or any muscle pain. ENDOCRINE: Denies any polyuria or polydipsia. Past Medical History Past Medical History: Atrial Fibrillation, Heart Failure, Diabetes Mellitus, Hyperlipidemia, Hypertension, Thyroid Disorder Additional Past Medical History / Comment(s): Mild developmental delay, the patient lives in a foster home since 1990, CHF with systolic heart failure/nonischemic cardiomyopathy, chronic atrial fibrillation, on Eliquis, hypertension, hyperlipidemia, diabetes mellitus, hypothyroidism, abdominal absc ess History of Any Multi-Drug Resistant Organisms: MRSA Year Discovered:: 11/26/19 MDRO Source:: ABDOMEN Past Surgical History: Bladder Surgery, Bowel Resection Additional Past Surgical History / Comment(s): HAS COLOSTOMY. Past Anesthesia/Blood Transfusion Reactions: Unable to Obtain Past Psychological History: No Psychological Hx Reported Smoking Status: Never smoker Past Alcohol Use History: None Reported Past Drug Use History: None Reported - Past Family History Mother Family Medical History: Unable to Obtain Medications and Allergies Home Medications Medication Instructions Recorded Confirmed Type Atorvastatin [Lipitor] 10 mg PO HS@199906/03/18 12/27/19 History Calcium Acetate [PhosLo] 667 mg PO DAILY@0806/03/18 12/27/19 History Calcium Carbonate/Vitamin D3 1 tab PO DAILY@0800 06/03/18 12/27/19 History [Calcium 600-Vit D3 400 Tablet] Levothyroxine Sodium [Synthroid] 25 mcg PO DAILY@0600 06/03/18 12/27/19 History Magnesium Oxide [Mag-Ox] 400 mg PO BID@08,199906/03/18 12/27/19 History Multivitamins, Thera [Multivitamin 1 tab PO DAILY@0800 06/03/18 12/27/19 History (formulary)] Loratadine 10 mg PO DAILY@0800 03/31/19 12/27/19 History Apixaban [Eliquis] 2.5 mg PO BID@08,199905/31/19 12/27/19 History Bisacodyl [Dulcolax] 10 mg RECTAL DAILY PRN 11/25/19 12/27/19 History Carvedilol [Coreg] 6.25 mg PO AC-BID@08,199911/25/19 12/27/19 History Furosemide [Lasix] 40 mg PO DAILY@0800 11/25/19 12/27/19 History Magnesium Hydroxide [Milk of 2,400 mg PO DAILY PRN 11/25/19 12/27/19 History Magnesia Concentrate] Ondansetron [Zofran ODT] 4 mg PO AC-TID 11/25/19 12/27/19 History Simethicone 40 mg/0.6 ml Drops 20 mg MISCELLANE DAILY 11/25/19 12/27/19 History [Mylicon Drops] Sodium Chloride Tab 1 gm PO DAILY@0800 11/25/19 12/27/19 History Acetaminophen [Tylenol Arthritis] 650 mg PO Q6H PRN 12/27/19 12/27/19 History DAPTOmycin [Cubicin] 350 mg IVPB HS@199912/27/19 12/27/19 History Diltiazem HCl 90 mg PO TID 12/27/19 12/27/19 History Famotidine [Pepcid] 20 mg PO DAILY@0800 12/27/19 12/27/19 History INSULIN ASPART (NovoLOG) [NovoLOG 4 unit SQ AC-SUPPER 12/27/19 12/27/19 History (formulary)] INSULIN ASPART (NovoLOG) [NovoLOG 5 unit SQ AC-BRKFST 12/27/19 12/27/19 History (formulary)] INSULIN ASPART (NovoLOG) [NovoLOG 6 unit SQ AC-LUNCH 12/27/19 12/27/19 History (formulary)] INSULIN ASPART (NovoLOG) [NovoLOG See Protocol SQ ACHS 12/27/19 12/27/19 History (formulary)] Insulin Glargine,Hum.rec.anlog 18 unit SQ AC-BRKFST@0812/27/19 12/27/19 History [Basaglar Kwikpen U-100] traMADol HCL 50 mg PO Q12H PRN 12/27/19 12/27/19 History Allergies Allergy/AdvReac Type Severity Reaction Status Date / Time No Known Allergies Allergy Verified 12/27/19 17:19 Physical Exam Vitals: Vital Signs Temp Pulse Pulse Pulse Resp BP BP 12/28/19 07:40 68 12/28/19 07:32 99.3 F 128 H 18 95/62 12/28/19 01:30 99 F 83 20 135/60 12/27/19 19:33 98.5 F 81 16 12/27/19 18:25 97.8 F 68 18 12/27/19 16:57 97.9 F 125 H 20 153/90 BP Pulse Ox 12/28/19 07:40 12/28/19 07:32 95 12/28/19 01:30 100 12/27/19 19:33 125/67 97 12/27/19 18:25 125/41 95 12/27/19 16:57 97 Intake and Output 12/27/19 12/28/19 12/28/19 22:59 06:59 14:59 Intake Total 262.5 675 Output Total 300 Balance 262.5 675 -300 Intake: Intake, IV Titration 262.5 675 Amount Sodium Chloride 0.9% 1, 262.5 675 000 ml @ 75 mls/hr IV . [id number] [facility] Rx#:[id number] Output: Stool 300 Other: Voiding Method Bedside Commode # Voids 1 2 2 Weight 54.431 kg GENERAL: The patient is alert and oriented x3, not in any acute distress. Well developed, well nourished. HEENT: Pupils are round and equally reacting to light. EOMI. No scleral icterus. No conjunctival pallor. Normocephalic, atraumatic. No pharyngeal erythema. No thyromegaly. CARDIOVASCULAR: S1 and S2 present. No murmurs, rubs, or gallops. PULMONARY: Chest is clear to auscultation, no wheezing or crackles. -ABDOMEN: Soft, nontender, nondistended, normoactive bowel sounds. No palpable organomegaly. Left lower colostomy and below it there is fullness with redness and some serosanguineous discharge, associated with mild tenderness no rebound tenderness MUSCULOSKELETAL: No joint swelling or deformity. EXTREMITIES: No cyanosis, clubbing, or pedal edema. NEUROLOGICAL: Gross neurological examination did not reveal any focal deficits. SKIN: No rashes. No petechiae Results CBC & Chem 7: 12/28/19 06:22 12/28/19 06:22 Labs: Abnormal Lab Results - Last 24 Hours (Table) 12/27/19 12/27/19 12/27/19 Range/Units 16:56 20:39 20:58 WBC (3.8-10.6) k/uL RBC (3.80-5.40) m/uL Hgb (11.4-16.0) gm/dL Hct (34.0-46.0) % RDW (11.5-15.5) % Neutrophils # (1.3-7.7) k/uL Lymphocytes # (1.0-4.8) k/uL BUN (7-17) mg/dL Creatinine (0.52-1.04) mg/dL Glucose (74-99) mg/dL POC Glucose (mg/dL) 73 L 54 L 52 L (75-99) mg/dL Total Protein (6.3-8.2) g/dL Albumin (3.5-5.0) g/dL 12/27/19 12/27/19 12/27/19 Range/Units 21:21 21:35 21:36 WBC (3.8-10.6) k/uL RBC (3.80-5.40) m/uL Hgb (11.4-16.0) gm/dL Hct (34.0-46.0) % RDW (11.5-15.5) % Neutrophils # (1.3-7.7) k/uL Lymphocytes # (1.0-4.8) k/uL BUN (7-17) mg/dL Creatinine (0.52-1.04) mg/dL Glucose (74-99) mg/dL POC Glucose (mg/dL) 67 L 60 L 55 L (75-99) mg/dL Total Protein (6.3-8.2) g/dL Albumin (3.5-5.0) g/dL 12/27/19 12/28/19 12/28/19 Range/Units 22:12 06:22 06:22 WBC 12.3 H (3.8-10.6) k/uL RBC 3.53 L (3.80-5.40) m/uL Hgb 10.8 L (11.4-16.0) gm/dL Hct 33.7 L (34.0-46.0) % RDW 15.6 H (11.5-15.5) % Neutrophils # 11.8 H (1.3-7.7) k/uL Lymphocytes # 0.1 L (1.0-4.8) k/uL BUN 39 H (7-17) mg/dL Creatinine 2.05 H (0.52-1.04) mg/dL Glucose 118 H (74-99) mg/dL POC Glucose (mg/dL) 152 H (75-99) mg/dL Total Protein 5.7 L (6.3-8.2) g/dL Albumin 2.9 L (3.5-5.0) g/dL 12/28/19 Range/Units 07:34 WBC (3.8-10.6) k/uL RBC (3.80-5.40) m/uL Hgb (11.4-16.0) gm/dL Hct (34.0-46.0) % RDW (11.5-15.5) % Neutrophils # (1.3-7.7) k/uL Lymphocytes # (1.0-4.8) k/uL BUN (7-17) mg/dL Creatinine (0.52-1.04) mg/dL Glucose (74-99) mg/dL POC Glucose (mg/dL) 116 H (75-99) mg/dL Total Protein (6.3-8.2) g/dL Albumin (3.5-5.0) g/dL Assessment and Plan Assessment: Worsening and enlarged abdominal abscesses, 11 x 4.5 x 6.4 cm Acute kidney injury chronic kidney disease stage IIIB Diabetes mellitus with hypoglycemia, POD Chronic atrial fibrillation on Eliquis Chronic systolic nonischemic heart failure Hypertension Hypothyroidism Plan: This is a pleasant 74 years old female who presents with worsening abdominal abscess. Continue with Zosyn. Follow-up ID recommendation. Need for surgical intervention will be addressed by Surgery primary team. Follow culture results. Continue with insulin sliding scale Consult nephrology Labs and medication were reviewed.. Continue same treatment. Continue with symptomatic treatment. Resume home medication. Monitor lytes and vitals. DVT and GI prophylaxis. Further recommendations of the clinical course of the patient DVT prophylaxis: Eliquis GI Prophylaxis: Pepcid
--- NOTE | 2019-12-28 11:03 | P.NPCON ---
History of Present Illness - Reason for Consult acute renal failure - History of Present Illness Reason for consultation: Acute kidney injury on chronic kidney disease History of present illness: Patient is a 74-year-old female seen in consultation for acute kidney injury on chronic kidney disease. Patient's baseline creatinine is in the range of 1-1.3. This admission and was elevated at 2.05. She presented to the hospital with abdominal pain. Patient states she was having breakfast and noticed sharp pain in her abdomen. She initially went to [facility] and was subsequently transferred here. Patient was admitted in November 2019 with abdominal wall abscess with fluid culture positive for MRSA. She completed IV daptomycin subsequently. However her CT of the abdomen and pelvis at [facility] showed enlarging abscess. She is currently maintained on IV daptomycin and Zosyn. Infectious disease has been consulted. She currently has an ileostomy with good output. She denies regular use of nonsteroidals. She does have history of diabetes mellitus. No vomiting. Hemodynamically stable. Vital signs are stable. General: The patient appeared well nourished and normally developed. HEENT: Head exam is unremarkable. Neck is without jugular venous distension. LUNGS: Lungs are clear to auscultation and percussion. Breath sounds decreased. HEART: Rate and Rhythm are regular. ABDOMEN: Soft. Nontender, nondistended. Ileostomy noted. EXTREMITITES: No clubbing, cyanosis, or edema. Past Medical History Past Medical History: Atrial Fibrillation, Heart Failure, Diabetes Mellitus, Hyperlipidemia, Hypertension, Thyroid Disorder Additional Past Medical History / Comment(s): Mild developmental delay, the patient lives in a foster home since 1990, CHF with systolic heart failure/nonischemic cardiomyopathy, chronic atrial fibrillation, on Eliquis, hypertension, hyperlipidemia, diabetes mellitus, hypothyroidism, abdominal abscess History of Any Multi-Drug Resistant Organisms: MRSA Date of last positivie culture/infection: 11/26/19 MDRO Source:: ABDOMEN Past Surgical History: Bladder Surgery, Bowel Resection Additional Past Surgical History / Comment(s): HAS COLOSTOMY. Past Anesthesia/Blood Transfusion Reactions: Unable to Obtain Past Psychological History: No Psychological Hx Reported Smoking Status: Never smoker Past Alcohol Use History: None Reported Past Drug Use History: None Reported - Past Family History Mother Family Medical History: Unable to Obtain Medications and Allergies Home Medications Medication Instructions Recorded Confirmed Type Atorvastatin [Lipitor] 10 mg PO HS@199906/03/18 12/27/19 History Calcium Acetate [PhosLo] 667 mg PO DAILY@0806/03/18 12/27/19 History Calcium Carbonate/Vitamin D3 1 tab PO DAILY@79906/03/18 12/27/19 History [Calcium 600-Vit D3 400 Tablet] Levothyroxine Sodium [Synthroid] 25 mcg PO DAILY@0600 06/03/18 12/27/19 History Magnesium Oxide [Mag-Ox] 400 mg PO BID@08,199906/03/18 12/27/19 History Multivitamins, Thera [Multivitamin 1 tab PO DAILY@79906/03/18 12/27/19 History (formulary)] Loratadine 10 mg PO DAILY@79903/31/19 12/27/19 History Apixaban [Eliquis] 2.5 mg PO BID@08,199905/31/19 12/27/19 History Bisacodyl [Dulcolax] 10 mg RECTAL DAILY PRN 11/25/19 12/27/19 History Carvedilol [Coreg] 6.25 mg PO AC-BID@799,199911/25/19 12/27/19 History Furosemide [Lasix] 40 mg PO DAILY@79911/25/19 12/27/19 History Magnesium Hydroxide [Milk of 2,400 mg PO DAILY PRN 11/25/19 12/27/19 History Magnesia Concentrate] Ondansetron [Zofran ODT] 4 mg PO AC-TID 11/25/19 12/27/19 History Simethicone 40 mg/0.6 ml Drops 20 mg MISCELLANE DAILY 11/25/19 12/27/19 History [Mylicon Drops] Sodium Chloride Tab 1 gm PO DAILY@79911/25/19 12/27/19 History Acetaminophen [Tylenol Arthritis] 650 mg PO Q6H PRN 12/27/19 12/27/19 History DAPTOmycin [Cubicin] 350 mg IVPB HS@199912/27/19 12/27/19 History Diltiazem HCl 90 mg PO TID 12/27/19 12/27/19 History Famotidine [Pepcid] 20 mg PO DAILY@79912/27/19 12/27/19 History INSULIN ASPART (NovoLOG) [NovoLOG 4 unit SQ AC-SUPPER 12/27/19 12/27/19 History (formulary)] INSULIN ASPART (NovoLOG) [NovoLOG 5 unit SQ AC-BRKFST 12/27/19 12/27/19 History (formulary)] INSULIN ASPART (NovoLOG) [NovoLOG 6 unit SQ AC-LUNCH 12/27/19 12/27/19 History (formulary)] INSULIN ASPART (NovoLOG) [NovoLOG See Protocol SQ ACHS 12/27/19 12/27/19 History (formulary)] Insulin Glargine,Hum.rec.anlog 18 unit SQ AC-BRKFST@0800 12/27/19 12/27/19 History [Basaglar Kwikpen U-100] traMADol HCL 50 mg PO Q12H PRN 12/27/19 12/27/19 History Allergies Allergy/AdvReac Type Severity Reaction Status Date / Time No Known Allergies Allergy Verified 12/27/19 17:19 Physical Exam Vitals: Vital Signs Temp Pulse Pulse Pulse Resp BP BP 12/28/19 08:00 18 12/28/19 07:40 68 12/28/19 07:32 99.3 F 128 H 18 95/62 12/28/19 01:30 99 F 83 20 135/60 12/27/19 19:33 98.5 F 81 16 12/27/19 18:25 97.8 F 68 18 12/27/19 16:57 97.9 F 125 H 20 153/90 BP Pulse Ox 12/28/19 08:00 12/28/19 07:40 12/28/19 07:32 95 12/28/19 01:30 100 12/27/19 19:33 125/67 97 12/27/19 18:25 125/41 95 12/27/19 16:57 97 Intake and Output 12/27/19 12/28/19 12/28/19 22:59 06:59 14:59 Intake Total 262.5 675 Output Total 300 Balance 262.5 675 -300 Intake: Intake, IV Titration 262.5 675 Amount Sodium Chloride 0.9% 1, 262.5 675 000 ml @ 75 mls/hr IV . [id number] [facility] Rx#:[id number] Output: Stool 300 Other: Voiding Method Bedside Commode Bedside Commode # Voids 1 2 2 Weight 54.431 kg Results - Lab Results Most recent lab results Calcium 8.7 mg/dL (8.4-10.2) 12/28/19 06:22 Magnesium 1.9 mg/dL (1.6-2.3) 12/28/19 06:22 12/28/19 06:22 12/28/19 06:22 Assessment and Plan Plan: Assessment: 1. Acute kidney injury mostly prerenal secondary to infection. Creatinine 2.05 on admission. 2. Abdominal wall abscess maintained on IV antibiotics. General surgery and infectious disease following. 3. Insulin-dependent diabetes mellitus. 4. Chronic A. fib maintained on anticoagulation. 5. Chronic kidney disease stage III. Etiology is most likely diabetic kidney disease. Baseline creatinine in the range of 1-1.3. Plan: Maintain normal saline at 75 mL an hour. Check a urinalysis. Check renal ultrasound. Repeat electrolytes in the morning. Thank you for the pathogen. I will continue to follow the patient with you during her hospital stay.
--- NOTE | 2019-12-28 11:15 | P.GSHP ---
History of Present Illness H&P Date: 12/28/19 CHIEF COMPLAINT: abscess HISTORY OF PRESENT ILLNESS: 74 year old female known to surgical services who was transferred from [facility] secondary to abdominal pain. Patient has a history of an abdominal wall abscess and underwent incision and drainage of abscess on 11/26/2019. Patient underwent computed tomography scan at [facility] revealing increased abdominal wall abscess measuring 11 x 4.5 x 6.4 cm. Previously measuring 10 x 4 x 2.4 cm. PAST MEDICAL HISTORY: See list. PAST SURGICAL HISTORY: See list. SOCIAL HISTORY: No illicit drug use. REVIEW OF SYSTEMS: CONSTITUTIONAL: Denies fever or chills. HEENT: Denies blurred vision, vision changes, or eye pain. Denies hemoptysis CARDIOVASCULAR: Denies chest pain or pressure. RESPIRATORY: No shortness of breath. GASTROINTESTINAL: Refer to [facility] for pertinent findings HEMATOLOGIC: Denies bleeding disorders. GENITOURINARY: Denies any blood in urine. SKIN: Denies pruitis. Denies rash. PHYSICAL EXAM: VITAL SIGNS: Reviewed. GENERAL: Well-developed in no acute distress. HEENT: No sclera icterus. Extraocular movements grossly intact. Moist buccal mucosa. Head is atraumatic, normocephalic. ABDOMEN: Soft. Nondistended. Nontender. Ostomy noted. Small open areas of skin inferior to ostomy site. No drainage noted. NEUROLOGIC: Alert and oriented. Cranial nerves II through XII grossly intact. LABORATORY DATA: WBC 12.3. Hemoglobin 10.8. Platelet count 432. IMAGING: Patient underwent computed tomography scan at [facility] revealing increased abdominal wall abscess measuring 11 x 4.5 x 6.4 cm. Previously measuring 10 x 4 x 2.4 cm. ASSESSMENT: 1. Abdominal wall abscess PLAN: -Continue antibiotics. ID following. Monitor WBC -Clear liquid diet -Patient will be re-evaluated tomorrow for possibility of surgical intervention which would be performed on Monday, December 30, 2019 Nurse practitioner note has been reviewed by physician. Signing provider agrees with the documented findings, assessment, and plan of care. Past Medical History Past Medical History: Atrial Fibrillation, Heart Failure, Diabetes Mellitus, Hyperlipidemia, Hypertension, Thyroid Disorder Additional Past Medical History / Comment(s): Mild developmental delay, the patient lives in a foster home since 1990, CHF with systolic heart failure/nonischemic cardiomyopathy, chronic atrial fibrillation, on Eliquis, hypertension, hyperlipidemia, diabetes mellitus, hypothyroidism, abdominal abscess History of Any Multi-Drug Resistant Organisms: MRSA Date of last positivie culture/infection: 11/26/19 MDRO Source:: ABDOMEN Past Surgical History: Bladder Surgery, Bowel Resection Additional Past Surgical History / Comment(s): HAS COLOSTOMY. Past Anesthesia/Blood Transfusion Reactions: Unable to Obtain Past Psychological History: No Psychological Hx Reported Smoking Status: Never smoker Past Alcohol Use History: None Reported Past Drug Use History: None Reported - Past Family History Mother Family Medical History: Unable to Obtain Medications and Allergies Home Medications Medication Instructions Recorded Confirmed Type Atorvastatin [Lipitor] 10 mg PO HS@199906/03/18 12/27/19 History Calcium Acetate [PhosLo] 667 mg PO DAILY@79906/03/18 12/27/19 History Calcium Carbonate/Vitamin D3 1 tab PO DAILY@0806/03/18 12/27/19 History [Calcium 600-Vit D3 400 Tablet] Levothyroxine Sodium [Synthroid] 25 mcg PO DAILY@0606/03/18 12/27/19 History Magnesium Oxide [Mag-Ox] 400 mg PO BID@08,199906/03/18 12/27/19 History Multivitamins, Thera [Multivitamin 1 tab PO DAILY@79906/03/18 12/27/19 History (formulary)] Loratadine 10 mg PO DAILY@0803/31/19 12/27/19 History Apixaban [Eliquis] 2.5 mg PO BID@08,199905/31/19 12/27/19 History Bisacodyl [Dulcolax] 10 mg RECTAL DAILY PRN 11/25/19 12/27/19 History Carvedilol [Coreg] 6.25 mg PO AC-BID@08,199911/25/19 12/27/19 History Furosemide [Lasix] 40 mg PO DAILY@79911/25/19 12/27/19 History Magnesium Hydroxide [Milk of 2,400 mg PO DAILY PRN 11/25/19 12/27/19 History Magnesia Concentrate] Ondansetron [Zofran ODT] 4 mg PO AC-TID 11/25/19 12/27/19 History Simethicone 40 mg/0.6 ml Drops 20 mg MISCELLANE DAILY 11/25/19 12/27/19 History [Mylicon Drops] Sodium Chloride Tab 1 gm PO DAILY@0800 11/25/19 12/27/19 History Acetaminophen [Tylenol Arthritis] 650 mg PO Q6H PRN 12/27/19 12/27/19 History DAPTOmycin [Cubicin] 350 mg IVPB HS@199912/27/19 12/27/19 History Diltiazem HCl 90 mg PO TID 12/27/19 12/27/19 History Famotidine [Pepcid] 20 mg PO DAILY@0800 12/27/19 12/27/19 History INSULIN ASPART (NovoLOG) [NovoLOG 4 unit SQ AC-SUPPER 12/27/19 12/27/19 History (formulary)] INSULIN ASPART (NovoLOG) [NovoLOG 5 unit SQ AC-BRKFST 12/27/19 12/27/19 History (formulary)] INSULIN ASPART (NovoLOG) [NovoLOG 6 unit SQ AC-LUNCH 12/27/19 12/27/19 History (formulary)] INSULIN ASPART (NovoLOG) [NovoLOG See Protocol SQ ACHS 12/27/19 12/27/19 History (formulary)] Insulin Glargine,Hum.rec.anlog 18 unit SQ AC-BRKFST@79912/27/19 12/27/19 History [Basaglar Kwikpen U-100] traMADol HCL 50 mg PO Q12H PRN 12/27/19 12/27/19 History Allergies Allergy/AdvReac Type Severity Reaction Status Date / Time No Known Allergies Allergy Verified 12/27/19 17:19 Surgical - Exam Vital Signs Temp Pulse Resp BP Pulse Ox 97.9 F 125 H 20 153/90 97 12/27/19 16:57 12/27/19 16:57 12/27/19 16:57 12/27/19 16:57 12/27/19 16:57 Results - Labs 12/28/19 06:22 12/28/19 06:22 Abnormal Lab Results - Last 24 Hours (Table) 12/27/19 12/27/19 12/27/19 Range/Units 16:56 20:39 20:58 WBC (3.8-10.6) k/uL RBC (3.80-5.40) m/uL Hgb (11.4-16.0) gm/dL Hct (34.0-46.0) % RDW (11.5-15.5) % Neutrophils # (1.3-7.7) k/uL Lymphocytes # (1.0-4.8) k/uL BUN (7-17) mg/dL Creatinine (0.52-1.04) mg/dL Glucose (74-99) mg/dL POC Glucose (mg/dL) 73 L 54 L 52 L (75-99) mg/dL Total Protein (6.3-8.2) g/dL Albumin (3.5-5.0) g/dL 12/27/19 12/27/19 12/27/19 Range/Units 21:21 21:35 21:36 WBC (3.8-10.6) k/uL RBC (3.80-5.40) m/uL Hgb (11.4-16.0) gm/dL Hct (34.0-46.0) % RDW (11.5-15.5) % Neutrophils # (1.3-7.7) k/uL Lymphocytes # (1.0-4.8) k/uL BUN (7-17) mg/dL Creatinine (0.52-1.04) mg/dL Glucose (74-99) mg/dL POC Glucose (mg/dL) 67 L 60 L 55 L (75-99) mg/dL Total Protein (6.3-8.2) g/dL Albumin (3.5-5.0) g/dL 12/27/19 12/28/19 12/28/19 Range/Units 22:12 06:22 06:22 WBC 12.3 H (3.8-10.6) k/uL RBC 3.53 L (3.80-5.40) m/uL Hgb 10.8 L (11.4-16.0) gm/dL Hct 33.7 L (34.0-46.0) % RDW 15.6 H (11.5-15.5) % Neutrophils # 11.8 H (1.3-7.7) k/uL Lymphocytes # 0.1 L (1.0-4.8) k/uL BUN 39 H (7-17) mg/dL Creatinine 2.05 H (0.52-1.04) mg/dL Glucose 118 H (74-99) mg/dL POC Glucose (mg/dL) 152 H (75-99) mg/dL Total Protein 5.7 L (6.3-8.2) g/dL Albumin 2.9 L (3.5-5.0) g/dL 12/28/19 Range/Units 07:34 WBC (3.8-10.6) k/uL RBC (3.80-5.40) m/uL Hgb (11.4-16.0) gm/dL Hct (34.0-46.0) % RDW (11.5-15.5) % Neutrophils # (1.3-7.7) k/uL Lymphocytes # (1.0-4.8) k/uL BUN (7-17) mg/dL Creatinine (0.52-1.04) mg/dL Glucose (74-99) mg/dL POC Glucose (mg/dL) 116 H (75-99) mg/dL Total Protein (6.3-8.2) g/dL Albumin (3.5-5.0) g/dL Diabetes panel 12/28/19 Range/Units 06:22 Sodium 138 (137-145) mmol/L Potassium 4.4 (3.5-5.1) mmol/L Chloride 101 (98-107) mmol/L Carbon Dioxide 28 (22-30) mmol/L BUN 39 H (7-17) mg/dL Creatinine 2.05 H (0.52-1.04) mg/dL Glucose 118 H (74-99) mg/dL Calcium 8.7 (8.4-10.2) mg/dL AST 28 (14-36) U/L ALT 16 (4-34) U/L Alkaline Phosphatase 78 (38-126) U/L Total Protein 5.7 L (6.3-8.2) g/dL Albumin 2.9 L (3.5-5.0) g/dL Calcium panel 12/28/19 Range/Units 06:22 Calcium 8.7 (8.4-10.2) mg/dL Albumin 2.9 L (3.5-5.0) g/dL Pituitary panel 12/28/19 Range/Units 06:22 Sodium 138 (137-145) mmol/L Potassium 4.4 (3.5-5.1) mmol/L Chloride 101 (98-107) mmol/L Carbon Dioxide 28 (22-30) mmol/L BUN 39 H (7-17) mg/dL Creatinine 2.05 H (0.52-1.04) mg/dL Glucose 118 H (74-99) mg/dL Calcium 8.7 (8.4-10.2) mg/dL Adrenal panel 12/28/19 Range/Units 06:22 Sodium 138 (137-145) mmol/L Potassium 4.4 (3.5-5.1) mmol/L Chloride 101 (98-107) mmol/L Carbon Dioxide 28 (22-30) mmol/L BUN 39 H (7-17) mg/dL Creatinine 2.05 H (0.52-1.04) mg/dL Glucose 118 H (74-99) mg/dL Calcium 8.7 (8.4-10.2) mg/dL Total Bilirubin 0.8 (0.2-1.3) mg/dL AST 28 (14-36) U/L ALT 16 (4-34) U/L Alkaline Phosphatase 78 (38-126) U/L Total Protein 5.7 L (6.3-8.2) g/dL Albumin 2.9 L (3.5-5.0) g/dL
[2019-12-28 11:52] LABS: Glucose,Whole Blood 188 mg/dL (75-99)
[2019-12-28 13:09] LABS: Appearance,Urine Cloudy (Clear); Bacteria,Urine Rare /hpf; Bilirubin,Urine Negative (Negative); Blood,Urine Negative (Negative); Color,Urine Yellow; Glucose,Urine (UA) Negative (Negative); Ketones,Urine Negative (Negative); Leukocyte Esterase,Urine Large (Negative); Nitrite,Urine Negative (Negative); Protein,Urine 2+ (Negative); RBC,Urine 1 /hpf (0-5); Squamous Epithelial Cell,Urine 10 /hpf (0-4); Urobilinogen,Urine <2.0 mg/dL (<2.0); WBC,Urine 72 /hpf (0-5)
[2019-12-28 13:24] VITALS: BMI 21.9
[2019-12-28] MEDS: HEPARIN SODIUM,PORCINE 5,000 UNIT/ML 1 ML VIAL SQ SCH ×2 (16:14→23:11)
[2019-12-28] MEDS: DILTIAZEM ORAL 30 MG TAB PO SCH ×2 (16:14→20:59)
[2019-12-28 16:48] LABS: Glucose,Whole Blood 217 mg/dL (75-99)
--- NOTE | 2019-12-28 16:51 | US ---
EXAMINATION TYPE: US kidneys/renal and bladder DATE OF EXAM: 12/28/2019 COMPARISON: CT 2019 CLINICAL HISTORY: hal. HAL, exam done portable, exam done with patient sitting up in a chair. EXAM MEASUREMENTS: Right Kidney: 8.4 x 3.9 x 4.2 cm Left Kidney: 9.3 x 4.5 x 3.9 cm Right Kidney: small in size, cortical thinning, no hydronephrosis or masses seen. The hyperdense focu s associated with the right kidney on prior CT measuring approximately 1 cm is not seen on ultrasound . Left Kidney: cortical thinning, no hydronephrosis, 2.7 x 1.9 x 1.8cm hypoechoic area lateral mid pole Bladder: not fully distended Bilateral Jets seen: no Cortical medullary differentiation is maintained. There is no ascites. IMPRESSION: Renal sizes as described. Likely there is a simple cyst associated with the left kidney. Possible pro teinaceous cyst within the right kidney is not well seen, there is cortical thinning suggesting chron ic kidney disease.
[2019-12-28] MEDS: ATORVASTATIN 10 MG TAB PO SCH (19:52)
[2019-12-28] MEDS: CARVEDILOL 3.125 MG TAB PO SCH (19:52)
[2019-12-28] MEDS ORDERED: APIXABAN 2.5 MG TABLET PO SCH (20:00)
[2019-12-28] MEDS ORDERED: CARVEDILOL 6.25 MG TAB PO SCH (20:00)
[2019-12-28 20:07] LABS: Glucose,Whole Blood 319 mg/dL (75-99)
[2019-12-28] MEDS ORDERED: FAMOTIDINE 20 MG TAB PO SCH (21:00)
--- NOTE | 2019-12-28 22:33 | P.CONS ---
History of Present Illness - Reason for Consult Consult date: 12/28/19 abdominal wall abscess Requesting physician: Cedric Quintanilla - Chief Complaint abdominal pain and vomiting x 1 day - History of Present Illness Patient is a 74-year-old female who was recently admitted at this facility about a month ago patient at that point was diagnosed with abdominal wall abscess the patient status post surgical drainage of that abscess culture positive for MRSA patient did have borderline kidney function on discharge it was recommended a 10-day course of IV daptomycin to complete at the snf patient apparently did have overall resolution and healing of her abdominal wound however she presented back to [facility] yesterday with chief complaints of worsening abdominal pain mostly lower abdominal area intensity almost 10 out of 10 in severity describing to be sharp with associated vomiting no diarrhea no chest pain shortness of breath or cough patient did have a CT abdominal pelvis at that facility we did shows a large abdominal wall abscess she also have elevated white count patient subsequently has been transferred to [facility] for drainage of this abscess on admission the hospital patient has been afebrile today white of 12.3 creatinine 2.05 urine has been negative, the patient was negative patient has [facility] was consulted for further recommendation about antibiotic therapy. Review of Systems Positive point has been mentioned in HPI rest of the systems are negative Past Medical History Past Medical History: Atrial Fibrillation, Heart Failure, Diabetes Mellitus, Hyperlipidemia, Hypertension, Thyroid Disorder Additional Past Medical History / Comment(s): Mild developmental delay, the patient lives in a foster home since 1990, CHF with systolic heart failure/nonischemic cardiomyopathy, chronic atrial fibrillation, on Eliquis, hypertension, hyperlipidemia, diabetes mellitus, hypothyroidism, abdominal abscess History of Any Multi-Drug Resistant Organisms: MRSA Year Discovered:: 11/26/19 MDRO Source:: ABDOMEN Past Surgical History: Bladder Surgery, Bowel Resection Additional Past Surgical History / Comment(s): HAS COLOSTOMY. Past Anesthesia/Blood Transfusion Reactions: Unable to Obtain Past Psychological History: No Psychological Hx Reported Smoking Status: Never smoker Past Alcohol Use History: None Reported Past Drug Use History: None Reported - Past Family History Mother Family Medical History: Unable to Obtain Medications and Allergies Home Medications Medication Instructions Recorded Confirmed Type Atorvastatin [Lipitor] 10 mg PO HS@199906/03/18 12/27/19 History Calcium Acetate [PhosLo] 667 mg PO DAILY@0800 06/03/18 12/27/19 History Calcium Carbonate/Vitamin D3 1 tab PO DAILY@79906/03/18 12/27/19 History [Calcium 600-Vit D3 400 Tablet] Levothyroxine Sodium [Synthroid] 25 mcg PO DAILY@0600 06/03/18 12/27/19 History Magnesium Oxide [Mag-Ox] 400 mg PO BID@799,199906/03/18 12/27/19 History Multivitamins, Thera [Multivitamin 1 tab PO DAILY@79906/03/18 12/27/19 History (formulary)] Loratadine 10 mg PO DAILY@79903/31/19 12/27/19 History Apixaban [Eliquis] 2.5 mg PO BID@799,199905/31/19 12/27/19 History Bisacodyl [Dulcolax] 10 mg RECTAL DAILY PRN 11/25/19 12/27/19 History Carvedilol [Coreg] 6.25 mg PO AC-BID@799,199911/25/19 12/27/19 History Furosemide [Lasix] 40 mg PO DAILY@0811/25/19 12/27/19 History Magnesium Hydroxide [Milk of 2,400 mg PO DAILY PRN 11/25/19 12/27/19 History Magnesia Concentrate] Ondansetron [Zofran ODT] 4 mg PO AC-TID 11/25/19 12/27/19 History Simethicone 40 mg/0.6 ml Drops 20 mg MISCELLANE DAILY 11/25/19 12/27/19 History [Mylicon Drops] Sodium Chloride Tab 1 gm PO DAILY@79911/25/19 12/27/19 History Acetaminophen [Tylenol Arthritis] 650 mg PO Q6H PRN 12/27/19 12/27/19 History DAPTOmycin [Cubicin] 350 mg IVPB HS@199912/27/19 12/27/19 History Diltiazem HCl 90 mg PO TID 12/27/19 12/27/19 History Famotidine [Pepcid] 20 mg PO DAILY@0800 12/27/19 12/27/19 History INSULIN ASPART (NovoLOG) [NovoLOG 4 unit SQ AC-SUPPER 12/27/19 12/27/19 History (formulary)] INSULIN ASPART (NovoLOG) [NovoLOG 5 unit SQ AC-BRKFST 12/27/19 12/27/19 History (formulary)] INSULIN ASPART (NovoLOG) [NovoLOG 6 unit SQ AC-LUNCH 12/27/19 12/27/19 History (formulary)] INSULIN ASPART (NovoLOG) [NovoLOG See Protocol SQ ACHS 12/27/19 12/27/19 History (formulary)] Insulin Glargine,Hum.rec.anlog 18 unit SQ AC-BRKFST@0800 12/27/19 12/27/19 History [Basaglar Kwikpen U-100] traMADol HCL 50 mg PO Q12H PRN 12/27/19 12/27/19 History Allergies Allergy/AdvReac Type Severity Reaction Status Date / Time No Known Allergies Allergy Verified 12/27/19 17:19 Physical Exam Vitals: Vital Signs Temp Pulse Pulse Resp BP BP Pulse Ox 12/28/19 16:50 20 12/28/19 14:06 98.6 F 62 16 111/72 100 12/28/19 08:00 18 12/28/19 07:40 68 12/28/19 07:32 99.3 F 128 H 18 95/62 95 12/28/19 01:30 99 F 83 20 135/60 100 12/27/19 19:33 98.5 F 81 16 125/67 97 12/27/19 18:25 97.8 F 68 18 125/41 95 Intake and Output 12/28/19 12/28/19 12/28/19 06:59 14:59 22:59 Intake Total 675 740 Output Total 300 Balance 675 -300 740 Intake: Intake, IV Titration 675 Amount Sodium Chloride 0.9% 1, 675 000 ml @ 75 mls/hr IV . [id number] [facility] Rx#:[id number] Oral 740 Output: Stool 300 Other: Voiding Method Bedside Commode Bedside Commode # Voids 2 1 2 Weight 54.431 kg GENERAL DESCRIPTION: Elderly female up in the chair, no distress. No tachypnea or accessory muscle of respiration use. HEENT: Shows Pallor , no scleral icterus. Oral mucous membrane is dry. NECK: Trachea central, no thyromegaly. LUNGS: Unlabored breathing. Clear to auscultation anteriorly. No wheeze or crackle. HEART: S1, S2, regular rate and rhythm. ABDOMEN: Soft, lower abdominal wall swelling and tenderness , guarding or rigidity EXTREMITIES: No edema of feet. SKIN: No rash, no masses palpable. NEUROLOGICAL: The patient is awake, alert, oriented x3, mood and affect normal. Results CBC & Chem 7: 12/28/19 06:22 12/28/19 06:22 Labs: Abnormal Lab Results - Last 24 Hours (Table) 12/27/19 12/27/19 12/27/19 Range/Units 20:39 20:58 21:21 WBC (3.8-10.6) k/uL RBC (3.80-5.40) m/uL Hgb (11.4-16.0) gm/dL Hct (34.0-46.0) % RDW (11.5-15.5) % Neutrophils # (1.3-7.7) k/uL Lymphocytes # (1.0-4.8) k/uL BUN (7-17) mg/dL Creatinine (0.52-1.04) mg/dL Glucose (74-99) mg/dL POC Glucose (mg/dL) 54 L 52 L 67 L (75-99) mg/dL Total Protein (6.3-8.2) g/dL Albumin (3.5-5.0) g/dL Urine Appearance (Clear) Urine Protein (Negative) Ur Leukocyte Esterase (Negative) Urine WBC (0-5) /hpf Ur Squamous Epith Cells (0-4) /hpf Urine Bacteria (None) /hpf 12/27/19 12/27/19 12/27/19 Range/Units 21:35 21:36 22:12 WBC (3.8-10.6) k/uL RBC (3.80-5.40) m/uL Hgb (11.4-16.0) gm/dL Hct (34.0-46.0) % RDW (11.5-15.5) % Neutrophils # (1.3-7.7) k/uL Lymphocytes # (1.0-4.8) k/uL BUN (7-17) mg/dL Creatinine (0.52-1.04) mg/dL Glucose (74-99) mg/dL POC Glucose (mg/dL) 60 L 55 L 152 H (75-99) mg/dL Total Protein (6.3-8.2) g/dL Albumin (3.5-5.0) g/dL Urine Appearance (Clear) Urine Protein (Negative) Ur Leukocyte Esterase (Negative) Urine WBC (0-5) /hpf Ur Squamous Epith Cells (0-4) /hpf Urine Bacteria (None) /hpf 12/28/19 12/28/19 12/28/19 Range/Units 06:22 06:22 07:34 WBC 12.3 H (3.8-10.6) k/uL RBC 3.53 L (3.80-5.40) m/uL Hgb 10.8 L (11.4-16.0) gm/dL Hct 33.7 L (34.0-46.0) % RDW 15.6 H (11.5-15.5) % Neutrophils # 11.8 H (1.3-7.7) k/uL Lymphocytes # 0.1 L (1.0-4.8) k/uL BUN 39 H (7-17) mg/dL Creatinine 2.05 H (0.52-1.04) mg/dL Glucose 118 H (74-99) mg/dL POC Glucose (mg/dL) 116 H (75-99) mg/dL Total Protein 5.7 L (6.3-8.2) g/dL Albumin 2.9 L (3.5-5.0) g/dL Urine Appearance (Clear) Urine Protein (Negative) Ur Leukocyte Esterase (Negative) Urine WBC (0-5) /hpf Ur Squamous Epith Cells (0-4) /hpf Urine Bacteria (None) /hpf 12/28/19 12/28/19 12/28/19 Range/Units 11:31 12:50 16:40 WBC (3.8-10.6) k/uL RBC (3.80-5.40) m/uL Hgb (11.4-16.0) gm/dL Hct (34.0-46.0) % RDW (11.5-15.5) % Neutrophils # (1.3-7.7) k/uL Lymphocytes # (1.0-4.8) k/uL BUN (7-17) mg/dL Creatinine (0.52-1.04) mg/dL Glucose (74-99) mg/dL POC Glucose (mg/dL) 188 H 217 H (75-99) mg/dL Total Protein (6.3-8.2) g/dL Albumin (3.5-5.0) g/dL Urine Appearance Cloudy H (Clear) Urine Protein 2+ H (Negative) Ur Leukocyte Esterase Large H (Negative) Urine WBC 72 H (0-5) /hpf Ur Squamous Epith Cells 10 H (0-4) /hpf Urine Bacteria Rare H (None) /hpf Assessment and Plan Assessment: 1-patient presented hospital with abdominal wall abscess and this patient who did have recent history of abdominal wall abscess status post surgical drainage culture positive for MRSA that has healed but not developing another abscess with a question of secondary to gram-positive skin wandy versus gram-negative pathogen as we do not have access to the CT images at this facility 2- patient with borderline kidney function high risk of nephrotoxicity from vancomycin (1) Abdominal wall abscess Current Visit: Yes Status: Acute Code(s): L02.211 - CUTANEOUS ABSCESS OF ABDOMINAL WALL SNOMED Code(s): 50120590 Plan: 1-daptomycin 4 mg/kg and Zosyn to continue we will provide adequate antibiotic coverage for her abdominal wall abscess 2-await surgical drainage and deep cultures both aerobic anaerobic We will follow on clinical condition and cultures to further adjust medication if needed Thank you for this consultation we will follow the patient along with you Time with Patient: Greater than 30
[2019-12-29] MEDS: LEVOTHYROXINE 25 MCG TAB PO SCH (06:08)
[2019-12-29 06:52] LABS: Glucose,Whole Blood 109 mg/dL (75-99)
[2019-12-29] MEDS: INSULIN ASPART (NovoLOG) 100 UNIT/ML VIAL SQ SCH ×4 (07:16→20:53)
[2019-12-29 07:51] LABS: Calcium 7.5 mg/dL (8.4-10.2); Magnesium 1.7 mg/dL (1.6-2.3); Potassium 4.1 mmol/L (3.5-5.1)
[2019-12-29 07:52] LABS: Basophils % (A) 0 %; Eosinophils # (A) 0.4 k/uL (0-0.7); Eosinophils % (A) 7 %; HCT 29.8 % (34.0-46.0); Lymphocytes # (A) 0.4 k/uL (1.0-4.8); Lymphocytes % (A) 7 %; MCH 29.7 pg (25.0-35.0); MCHC 31.2 g/dL (31.0-37.0); MCV 95.4 fL (80.0-100.0); Monocytes # (A) 0.2 k/uL (0-1.0); Monocytes % (A) 3 %; Neutrophils # (A) 4.8 k/uL (1.3-7.7); Neutrophils % (A) 81 %; Platelet Count 279 k/uL (150-450); RBC 3.12 m/uL (3.80-5.40); RDW 15.5 % (11.5-15.5); WBC 5.9 k/uL (3.8-10.6)
[2019-12-29 08:14] LABS: HGB 9.3 gm/dL (11.4-16.0)
[2019-12-29] MEDS: HEPARIN SODIUM,PORCINE 5,000 UNIT/ML 1 ML VIAL SQ SCH ×3 (08:37→22:56)
[2019-12-29] MEDS: SIMETHICONE 40 MG/0.6 ML DROPS 2,000 MG/30 ML BOTTLE MISCELLANE SCH (08:37)
[2019-12-29] MEDS: FAMOTIDINE 20 MG TAB PO SCH (08:37)
[2019-12-29] MEDS: DILTIAZEM ORAL 30 MG TAB PO SCH ×3 (08:37→22:52)
[2019-12-29] MEDS: CARVEDILOL 3.125 MG TAB PO SCH ×2 (08:37→20:52)
[2019-12-29] MEDS: PIPERACILLIN-TAZOBACTAM 3.375 GM in SODIUM CHLORIDE 0.9% 100 ML IVPB SCH ×2 (08:38→22:52)
[2019-12-29] MEDS: SODIUM CHLORIDE 0.9% 1,000 ML IV SCH (08:38)
--- NOTE | 2019-12-29 10:35 | P.PN ---
Subjective Patient is seen in follow-up for acute kidney injury on chronic kidney disease. Patient baseline creatinine is in the range of 1-1.3.renal function is better. Creatinine 1.75 today. Oral intake is fair. No vomiting. Good output from ileostomy. Vital signs are stable. General: The patient appeared well nourished and normally developed. HEENT: Head exam is unremarkable. Neck is without jugular venous distension. LUNGS: Lungs are clear to auscultation and percussion. Breath sounds decreased. HEART: Rate and Rhythm are regular. First and second heart sounds normal. No murmurs, rubs or gallops. ABDOMEN: Abdominal exam reveals normal bowel sounds. Non-tender and non- distended. No evidence of peritonitis. EXTREMITITES: No clubbing, cyanosis, or edema. Objective - Vital Signs Vital signs: Vital Signs Temp 98.1 F 12/29/19 07:00 Pulse 77 12/29/19 07:00 Resp 17 12/29/19 07:00 BP 101/63 12/29/19 07:00 Pulse Ox 99 12/29/19 07:00 Intake & Output 12/28/19 12/29/19 12/29/19 18:59 06:59 18:59 Intake Total 1280 Output Total 350 100 Balance 930 -100 Weight 54.431 kg Intake: Oral 1280 Output: Stool 350 100 Other: Voiding Method Bedside Commode Toilet Bedside Commode Bedpan # Voids 1 1 1 - Labs CBC & Chem 7: 12/29/19 07:14 12/29/19 07:14 Labs: Abnormal Lab Results - Last 24 Hours (Table) 12/28/19 12/28/19 12/28/19 Range/Units 11:31 12:50 16:40 RBC (3.80-5.40) m/uL Hgb (11.4-16.0) gm/dL Hct (34.0-46.0) % Lymphocytes # (1.0-4.8) k/uL Sodium (137-145) mmol/L BUN (7-17) mg/dL Creatinine (0.52-1.04) mg/dL POC Glucose (mg/dL) 188 H 217 H (75-99) mg/dL Calcium (8.4-10.2) mg/dL Urine Appearance Cloudy H (Clear) Urine Protein 2+ H (Negative) Ur Leukocyte Esterase Large H (Negative) Urine WBC 72 H (0-5) /hpf Ur Squamous Epith Cells 10 H (0-4) /hpf Urine Bacteria Rare H (None) /hpf 12/28/19 12/29/19 12/29/19 Range/Units 20:06 06:51 07:14 RBC (3.80-5.40) m/uL Hgb (11.4-16.0) gm/dL Hct (34.0-46.0) % Lymphocytes # (1.0-4.8) k/uL Sodium 132 L (137-145) mmol/L BUN 34 H (7-17) mg/dL Creatinine 1.75 H (0.52-1.04) mg/dL POC Glucose (mg/dL) 319 H 109 H (75-99) mg/dL Calcium 7.5 L (8.4-10.2) mg/dL Urine Appearance (Clear) Urine Protein (Negative) Ur Leukocyte Esterase (Negative) Urine WBC (0-5) /hpf Ur Squamous Epith Cells (0-4) /hpf Urine Bacteria (None) /hpf 12/29/19 Range/Units 07:14 RBC 3.12 L (3.80-5.40) m/uL Hgb 9.3 L D (11.4-16.0) gm/dL Hct 29.8 L (34.0-46.0) % Lymphocytes # 0.4 L (1.0-4.8) k/uL Sodium (137-145) mmol/L BUN (7-17) mg/dL Creatinine (0.52-1.04) mg/dL POC Glucose (mg/dL) (75-99) mg/dL Calcium (8.4-10.2) mg/dL Urine Appearance (Clear) Urine Protein (Negative) Ur Leukocyte Esterase (Negative) Urine WBC (0-5) /hpf Ur Squamous Epith Cells (0-4) /hpf Urine Bacteria (None) /hpf Assessment and Plan Plan: Assessment: 1. Acute kidney injury mostly prerenal secondary to infection. Creatinine 2.05 on admission and is down to 1.75 today. No evidence of hydronephrosis noted on kidney ultrasound. 2. Abdominal wall abscess maintained on IV antibiotics. General surgery and infectious disease following. Scheduled for surgical drainage tomorrow. 3. Insulin-dependent diabetes mellitus. 4. Chronic A. fib maintained on Coreg and Cardizem. Anticoagulation currently held. 5. Chronic kidney disease stage III. Etiology is most likely diabetic kidney disease. Baseline creatinine in the range of 1-1.3. 6. Anemia of chronic kidney disease. Plan: Maintain normal saline at 75 mL an hour. Avoid nephrotoxins. Add Aranesp. Repeat electrolytes in the morning.
[2019-12-29 11:40] LABS: Glucose,Whole Blood 326 mg/dL (75-99)
[2019-12-29] MEDS ORDERED: DARBEPOETIN ALFA 25 MCG/0.42 ML SYRINGE SQ SCH (12:00)
[2019-12-29] MEDS: IOPAMIDOL CONTRAST (ORAL USE) VIAL PO PRN ×2 (12:42→13:47)
--- NOTE | 2019-12-29 12:53 | P.PN ---
Subjective This is a pleasant 74 years old male with past medical history of chronic atrial fibrillation on Eliquis, chronic systolic nonischemic heart failure, diabetes mellitus, hypertension, hypothyroidism. Patient presents with abdominal pain and vomiting. Patient was transferred from [facility] for abdominal pain related to her large abdominal abscess, she was transferred to this hospital because her primary surgeon Dr. Arango works here. 11/24-11/30 she was admitted for abdominal wall abscess, secondary to MRSA at that time she was discharged on 10 days of daptomycin At [place] her CT of the abdomen and pelvis without contrast showing mild increase in the size of abscess 11 x 4.5 x 6.4 cm, however there was no IV contrast Vitals stable and patient is afebrile. WBC is 12.3 K, hemoglobin 10.8, platelets normal, INR is normal. BMP is unremarkable except for elevated creatinine of 2.05, with baseline 1.0-1.5, liver enzymes not elevated. Glucose was low yesterday 52-73 In the emergency room patient was started on Zosyn on normal saline at 75 mL per Infectious disease already been consulted Her medication review was on at home she was taken Lantus 18 units every morning and NovoLog with meals as 4, 5, 6 units respectively. 12/29/2019 Patient lying in bed not in distress. She still have some discomfort and her abscess and possible incision and drainage, to be done tomorrow by surgery team.because of this her Eliquis was held and patient was placed on subcu heparin Her blood pressure this morning is 101/63, Coreg dose was lowered to help her blood pressure and renal function. Labs reviewed showing hemoglobin of 9.3. WBC came back to normal at 5.9, platelet also came down. It looks like has hemodilution.creatinine is coming down from 2.0 down to 1.7, renal ultrasound is with no hydronephrosis patient continue on daptomycinZosyn normal saline at 75 mL/h yesterday she needed 10 units of insulin on sliding scale, this morning 6 units. We'll Keep the patient on sliding scale as is going for surgery tomorrow review of system: CONSTITUTIONAL: No fever, no malaise, no fatigue. HEENT: No recent visual problems or hearing problems. Denied any sore throat. CARDIOVASCULAR: No orthopnea, PND, no palpitations, no syncope. PULMONARY: No shortness of breath, no cough, no hemoptysis. GASTROINTESTINAL: No diarrhea, no nausea, no vomiting, no abdominal pain. Normoactive bowel sounds. NEUROLOGICAL: No headaches, no weakness, no numbness. HEMATOLOGICAL: Denies any bleeding or petechiae. GENITOURINARY: Denies any burning micturition, frequency, or urgency. MUSCULOSKELETAL/RHEUMATOLOGICAL: Denies any joint pain, swelling, or any muscle pain. ENDOCRINE: Denies any polyuria or polydipsia. Active Medications Generic Name Dose Route Start Last Admin Trade Name Freq PRN Reason Stop Dose Admin Acetaminophen 325 mg 12/28/19 10:12 Tylenol Tab PO Q6H PRN Pain Atorvastatin Calcium 10 mg 12/28/19 20:00 12/28/19 19:52 Lipitor PO 10 mg HS@1999 ISABEL Administration Bisacodyl 10 mg 12/28/19 10:12 Dulcolax RECTAL DAILY PRN Constipation Carvedilol 3.125 mg 12/28/19 20:00 12/29/19 08:37 Coreg PO 3.125 mg AC-BID@ ISABEL Administration Darbepoetin Larry 25 mcg 12/29/19 12:00 Aranesp SQ Q7D ISABEL Diltiazem HCl 90 mg 12/28/19 16:00 12/29/19 08:37 Cardizem Oral PO 90 mg TID ISABEL Administration Famotidine 20 mg 12/29/19 09:00 12/29/19 08:37 Pepcid PO 20 mg DAILY ISABEL Administration Heparin Sodium (Porcine) 5,000 unit 12/28/19 16:00 12/29/19 08:37 Heparin SQ 5,000 unit Q8HR ISABEL Administration Hydromorphone HCl 0.5 mg 12/27/19 16:58 Dilaudid IVP Q3HR PRN Moderate Pain Sodium Chloride 1,000 mls @ 75 mls/hr 12/27/19 17:00 12/29/19 08:38 Saline 0.9% IV 75 mls/hr .[id number] ISABEL Administration Daptomycin 320 mg/ Sodium 50 mls @ 100 mls/hr 12/29/19 21:00 Chloride IVPB Q48H ISABEL Protocol Piperacillin Sod/Tazobactam 100 mls @ 25 mls/hr 12/28/19 21:00 12/29/19 08:38 Sod 3.375 gm/ Sodium Chloride IVPB 25 mls/hr Q12HR ISABEL Administration Insulin Aspart 0 unit 12/27/19 21:00 12/29/19 12:42 Novolog SQ 6 unit ACHS ISABEL Administration Protocol Iopamidol 30 ml 12/29/19 11:14 12/29/19 12:42 Isovue-300 (For Oral Use) PO 12/30/19 11:15 30 ml Q60M PRN Administration CT Scan Levothyroxine Sodium 25 mcg 12/29/19 06:00 12/29/19 06:08 Synthroid PO 25 mcg DAILY@0600 ISABEL Administration Naloxone HCl 0.2 mg 12/27/19 16:58 Narcan IV Q2M PRN Opioid Reversal Ondansetron HCl 4 mg 12/27/19 16:58 12/28/19 23:14 Zofran IVP 4 mg Q8HR PRN Administration Nausea And Vomiting Simethicone 20 mg 12/29/19 09:00 12/29/19 08:37 Mylicon Drops MISCELLANE 20 mg DAILY ISABEL Administration Objective - Vital Signs Vital signs: Vital Signs Temp 98.1 F 12/29/19 07:00 Pulse 77 12/29/19 07:00 Resp 17 12/29/19 07:00 BP 101/63 12/29/19 07:00 Pulse Ox 99 12/29/19 07:00 Intake & Output 12/28/19 12/29/19 12/29/19 18:59 06:59 18:59 Intake Total 1280 Output Total 350 100 Balance 930 -100 Weight 54.431 kg Intake: Oral 1280 Output: Stool 350 100 Other: Voiding Method Bedside Commode Toilet Bedside Commode Bedpan # Voids 1 1 1 - Exam GENERAL: The patient is alert and oriented x3, not in any acute distress. Well developed, well nourished. HEENT: Pupils are round and equally reacting to light. EOMI. No scleral icterus. No conjunctival pallor. Normocephalic, atraumatic. No pharyngeal erythema. No thyromegaly. CARDIOVASCULAR: S1 and S2 present. No murmurs, rubs, or gallops. PULMONARY: Chest is clear to auscultation, no wheezing or crackles. -ABDOMEN: Soft, nontender, nondistended, normoactive bowel sounds. No palpable organomegaly. Left lower colostomy and below it there is fullness with redness and some serosanguineous discharge, associated with mild tenderness no rebound tenderness MUSCULOSKELETAL: No joint swelling or deformity. EXTREMITIES: No cyanosis, clubbing, or pedal edema. NEUROLOGICAL: Gross neurological examination did not reveal any focal deficits. SKIN: No rashes. No petechiae - Labs CBC & Chem 7: 12/29/19 07:14 12/29/19 07:14 Labs: Abnormal Lab Results - Last 24 Hours (Table) 12/28/19 12/28/19 12/28/19 Range/Units 12:50 16:40 20:06 RBC (3.80-5.40) m/uL Hgb (11.4-16.0) gm/dL Hct (34.0-46.0) % Lymphocytes # (1.0-4.8) k/uL Sodium (137-145) mmol/L BUN (7-17) mg/dL Creatinine (0.52-1.04) mg/dL POC Glucose (mg/dL) 217 H 319 H (75-99) mg/dL Calcium (8.4-10.2) mg/dL Urine Appearance Cloudy H (Clear) Urine Protein 2+ H (Negative) Ur Leukocyte Esterase Large H (Negative) Urine WBC 72 H (0-5) /hpf Ur Squamous Epith Cells 10 H (0-4) /hpf Urine Bacteria Rare H (None) /hpf 12/29/19 12/29/19 12/29/19 Range/Units 06:51 07:14 07:14 RBC 3.12 L (3.80-5.40) m/uL Hgb 9.3 L D (11.4-16.0) gm/dL Hct 29.8 L (34.0-46.0) % Lymphocytes # 0.4 L (1.0-4.8) k/uL Sodium 132 L (137-145) mmol/L BUN 34 H (7-17) mg/dL Creatinine 1.75 H (0.52-1.04) mg/dL POC Glucose (mg/dL) 109 H (75-99) mg/dL Calcium 7.5 L (8.4-10.2) mg/dL Urine Appearance (Clear) Urine Protein (Negative) Ur Leukocyte Esterase (Negative) Urine WBC (0-5) /hpf Ur Squamous Epith Cells (0-4) /hpf Urine Bacteria (None) /hpf 12/29/19 Range/Units 11:39 RBC (3.80-5.40) m/uL Hgb (11.4-16.0) gm/dL Hct (34.0-46.0) % Lymphocytes # (1.0-4.8) k/uL Sodium (137-145) mmol/L BUN (7-17) mg/dL Creatinine (0.52-1.04) mg/dL POC Glucose (mg/dL) 326 H (75-99) mg/dL Calcium (8.4-10.2) mg/dL Urine Appearance (Clear) Urine Protein (Negative) Ur Leukocyte Esterase (Negative) Urine WBC (0-5) /hpf Ur Squamous Epith Cells (0-4) /hpf Urine Bacteria (None) /hpf Assessment and Plan Assessment: Worsening and enlarged abdominal abscesses, 11 x 4.5 x 6.4 cm Acute kidney injury chronic kidney disease stage IIIB, secondary to diabetic nephropathy Diabetes mellitus with hypoglycemia, POD Chronic atrial fibrillation on Eliquis Chronic systolic nonischemic heart failure Hypertension Hypothyroidism Plan: This is a pleasant 74 years old female who presents with worsening abdominal abscess. Continue with Zosyn. Follow-up ID recommendation. Need for surgical intervention will be addressed by Surgery primary team. Follow culture results. Continue with insulin sliding scale Consult nephrology Labs and medication were reviewed.. Continue same treatment. Continue with symptomatic treatment. Resume home medication. Monitor lytes and vitals. DVT and GI prophylaxis. Further recommendations of the clinical course of the patient DVT prophylaxis: Eliquis GI Prophylaxis: Pepcid
--- NOTE | 2019-12-29 13:39 | P.PN ---
Subjective Progress Note Date: 12/29/19 CHIEF COMPLAINT: abscess HISTORY OF PRESENT ILLNESS: Patient examined at the bedside with Dr. Quintanilla. Patient denies abdominal pain. Tolerating liquid diet without nausea or vomiting. WBC 5.9. Afebrile. PHYSICAL EXAM: VITAL SIGNS: Reviewed. GENERAL: Well-developed in no acute distress. HEENT: No sclera icterus. Extraocular movements grossly intact. Moist buccal mucosa. Head is atraumatic, normocephalic. ABDOMEN: Soft. Nondistended. Nontender. Ostomy noted. Small open areas of skin inferior to ostomy site. No drainage noted. NEUROLOGIC: Alert and oriented. Cranial nerves II through XII grossly intact. ASSESSMENT: 1. Abdominal wall abscess PLAN: -Continue antibiotics. ID following. Monitor WBC -Clear liquid diet. NPO at midnight -Obtain CT abdomen pelvis with oral contrast -Patient tentatively scheduled for incision and drainage of abdominal abscess tomorrow with Dr. Quintanilla pending CAT scan results Nurse practitioner note has been reviewed by physician. Signing provider agrees with the documented findings, assessment, and plan of care. Objective - Vital Signs Vital signs: Vital Signs Temp 98.1 F 12/29/19 07:00 Pulse 77 12/29/19 07:00 Resp 17 12/29/19 07:00 BP 101/63 12/29/19 07:00 Pulse Ox 99 12/29/19 07:00 Intake & Output 12/28/19 12/29/19 12/29/19 18:59 06:59 18:59 Intake Total 1280 Output Total 350 100 Balance 930 -100 Weight 54.431 kg Intake: Oral 1280 Output: Stool 350 100 Other: Voiding Method Bedside Commode Toilet Bedside Commode Bedpan # Voids 1 1 1 - Labs CBC & Chem 7: 12/29/19 07:14 12/29/19 07:14 Labs: Abnormal Lab Results - Last 24 Hours (Table) 12/28/19 12/28/19 12/29/19 Range/Units 16:40 20:06 06:51 RBC (3.80-5.40) m/uL Hgb (11.4-16.0) gm/dL Hct (34.0-46.0) % Lymphocytes # (1.0-4.8) k/uL Sodium (137-145) mmol/L BUN (7-17) mg/dL Creatinine (0.52-1.04) mg/dL POC Glucose (mg/dL) 217 H 319 H 109 H (75-99) mg/dL Calcium (8.4-10.2) mg/dL 12/29/19 12/29/19 12/29/19 Range/Units 07:14 07:14 11:39 RBC 3.12 L (3.80-5.40) m/uL Hgb 9.3 L D (11.4-16.0) gm/dL Hct 29.8 L (34.0-46.0) % Lymphocytes # 0.4 L (1.0-4.8) k/uL Sodium 132 L (137-145) mmol/L BUN 34 H (7-17) mg/dL Creatinine 1.75 H (0.52-1.04) mg/dL POC Glucose (mg/dL) 326 H (75-99) mg/dL Calcium 7.5 L (8.4-10.2) mg/dL
--- NOTE | 2019-12-29 16:07 | CT ---
EXAMINATION TYPE: CT abdomen pelvis wo con DATE OF EXAM: 12/29/2019 COMPARISON: 12/27/2019 HISTORY: Abdominal abscess. CT DLP: 758.6 mGycm Automated exposure control for dose reduction was used. TECHNIQUE: Helical acquisition of images was performed from the lung bases through the pelvis. FINDINGS: LUNG BASES: There are bilateral pleural effusions and cardiomegaly with subsegmental areas of consoli dation. LIVER/GB: No significant abnormality is appreciated. PANCREAS: Atrophy of the pancreas noted with calcifications correlate for chronic pancreatitis. SPLEEN: No significant abnormality is seen. ADRENALS: Mild thickening of the left adrenal gland stable in appearance. KIDNEYS: Hypodensity in the left kidney is indeterminate by noncontrast technique. No hydronephrosis or nephrolithiasis. Findings stable from previous exam. Measures approximately 11 Hounsfield units li sanjay related to simple cyst. ADENOPATHY: None visualized. OSSEOUS STRUCTURES: Hypertrophic and degenerative change of the spine with a grade 1 anterolisthesis L4 on L5. BOWEL: Nonspecific gas pattern. There are few prominent small bowel loops within the abdomen with mi ld wall thickening which could been the basis of an ileus or enteritis. Air is seen distally within t he colon. There appears to be a left-sided ostomy with parastomal hernia. Portion of the stomach appe ars to be contained. Probable bone island involving the left iliac bone. Lower lumbar spine canal yumiko nosis suspected. OTHER: Aorta of normal caliber with atherosclerotic changes. There persists a skin thickening along t he anterior abdominal wall. There also is a persistent fluid collection could represent abscess or se chavez or hematoma measuring transverse diameter of 7.7 cm and a maximal AP dimension of 3.1 cm. Simila r appearance to the prior exam. Multiple air within the bladder could be related to recent Thompson cath eter placement otherwise consider infectious etiology. There is subcutaneous edema correlate for mild anasarca. IMPRESSION: 1. Subcutaneous anterior abdominal wall fluid collection measuring 7.7 x 3.1 cm a similar appearance to the prior exam could represent abscess, hematoma or seroma. 2. Apparent left-sided ostomy with peristomal hernia. There are dilated and prominent small bowel loo ps in the lower abdomen and upper pelvis with mild wall thickening which could represent an enteritis or ileus correlate clinically. 3. Abnormal air within the bladder could be related to recent Thompson catheter placement correlate clin ically. Otherwise, consider infectious etiology and urinalysis. 4. There are bilateral small pleural effusions which is progressed from the prior exam.
--- NOTE | 2019-12-29 17:00 | PN ---
PROGRESS NOTE DATE OF SERVICE: 12/29/2019 REASON FOR FOLLOWUP: Abdominal wall abscess. INTERVAL HISTORY: The patient is currently afebrile. The patient is breathing comfortably. The patient's abdominal pain is currently controlled. No further vomiting. No chest pain or shortness of breath or cough. PHYSICAL EXAMINATION: On examination, her blood pressure is 114/74 with a pulse of 61, temperature 98.5. She is 93% on room air. General description is an elderly female up in a chair in no distress. RESPIRATORY SYSTEM: Unlabored breathing. Clear to auscultation anteriorly. HEART: S1, S2. Regular rate and rhythm. ABDOMEN: Soft. Lower abdominal area did have an area swelling and redness. No open area or any drainage. LABS/IMAGING: Hemoglobin is 9.3, white count 5.9. BUN of 34, creatinine 1.75. Abdominal CT shows a 7.7 x 3.1 cm abscess. DIAGNOSTIC IMPRESSION AND PLAN: Patient with an abdominal wall abscess, previous history of an abscess. Culture with positive MRSA. Waiting for surgical debridement and deep culture. Continue with daptomycin and Zosyn because of her borderline kidney function and monitor clinical course closely. MMODL / IJN: [id number] /
[2019-12-29 17:22] LABS: Glucose,Whole Blood 85 mg/dL (75-99)
[2019-12-29 20:14] LABS: Glucose,Whole Blood 315 mg/dL (75-99)
[2019-12-29] MEDS: ATORVASTATIN 10 MG TAB PO SCH (20:52)
[2019-12-29] MEDS ORDERED: DAPTOMYCIN IVPB SCH (21:00)
[2019-12-29] MEDS ORDERED: SODIUM CHLORIDE 0.9% IVPB SCH (21:00)
[2019-12-30] MEDS: SODIUM CHLORIDE 0.9% 1,000 ML IV SCH ×2 (00:49→13:23)
[2019-12-30] MEDS: LEVOTHYROXINE 25 MCG TAB PO SCH (05:48)
[2019-12-30 07:07] LABS: Glucose,Whole Blood 91 mg/dL (75-99)
[2019-12-30 07:26] LABS: Basophils % (A) 0 %; Eosinophils # (A) 0.4 k/uL (0-0.7); Eosinophils % (A) 9 %; HCT 30.1 % (34.0-46.0); HGB 9.3 gm/dL (11.4-16.0); Lymphocytes # (A) 0.5 k/uL (1.0-4.8); Lymphocytes % (A) 12 %; MCH 29.4 pg (25.0-35.0); MCHC 30.9 g/dL (31.0-37.0); MCV 95.2 fL (80.0-100.0); Mean Platelet Volume 7.7; Monocytes # (A) 0.2 k/uL (0-1.0); Monocytes % (A) 4 %; Neutrophils # (A) 2.9 k/uL (1.3-7.7); Neutrophils % (A) 72 %; Platelet Count 280 k/uL (150-450); RBC 3.16 m/uL (3.80-5.40); RDW 15.2 % (11.5-15.5)
[2019-12-30] MEDS: INSULIN ASPART (NovoLOG) 100 UNIT/ML VIAL SQ SCH ×4 (07:34→21:37)
[2019-12-30 08:01] LABS: Calcium 7.7 mg/dL (8.4-10.2); Magnesium 1.7 mg/dL (1.6-2.3); Potassium 3.8 mmol/L (3.5-5.1)
[2019-12-30] MEDS: SIMETHICONE 40 MG/0.6 ML DROPS 2,000 MG/30 ML BOTTLE MISCELLANE SCH (09:15)
[2019-12-30] MEDS: PIPERACILLIN-TAZOBACTAM 3.375 GM in SODIUM CHLORIDE 0.9% 100 ML IVPB SCH ×2 (09:15→18:12)
[2019-12-30] MEDS: HEPARIN SODIUM,PORCINE 5,000 UNIT/ML 1 ML VIAL SQ SCH ×2 (09:16→18:12)
[2019-12-30] MEDS: DILTIAZEM ORAL 30 MG TAB PO SCH ×3 (09:16→22:32)
[2019-12-30] MEDS: CARVEDILOL 3.125 MG TAB PO SCH ×2 (09:16→21:56)
[2019-12-30] MEDS: FAMOTIDINE 20 MG TAB PO SCH (09:16)
--- NOTE | 2019-12-30 10:15 | P.PN ---
Subjective Patient is seen in follow-up for acute kidney injury on chronic kidney disease. Patient baseline creatinine is in the range of 1-1.3. Renal function is better. Creatinine 1.38 today. Oral intake is fair. No vomiting. Good output from ileostomy. No abdominal pain at this time. Vital signs are stable. General: The patient appeared well nourished and normally developed. HEENT: Head exam is unremarkable. Neck is without jugular venous distension. LUNGS: Lungs are clear to auscultation and percussion. Breath sounds decreased. HEART: Rate and Rhythm are regular. First and second heart sounds normal. No murmurs, rubs or gallops. ABDOMEN: Nontender, nondistended. EXTREMITITES: No clubbing, cyanosis, or edema. Objective - Vital Signs Vital signs: Vital Signs Temp 98.2 F 12/30/19 07:00 Pulse 61 12/30/19 07:00 Resp 18 12/30/19 07:00 BP 133/70 12/30/19 07:00 Pulse Ox 100 12/30/19 07:00 Intake & Output 12/29/19 12/30/19 12/30/19 18:59 06:59 18:59 Intake Total 700 Output Total 100 200 25 Balance 600 -200 -25 Intake: Intake, IV Titration 700 Amount Piperacillin-Tazobactam 3 100 .375 gm In Sodium Chloride 0.9% 100 ml @ 25 mls/hr IVPB Q12HR [facility] Rx #:[id number] Sodium Chloride 0.9% 1, 600 000 ml @ 75 mls/hr IV . [id number] [facility] Rx#:[id number] Output: Stool 100 200 25 Other: Voiding Method Toilet Bedside Commode Bedpan # Voids 1 1 - Labs CBC & Chem 7: 12/30/19 07:05 12/30/19 07:05 Labs: Abnormal Lab Results - Last 24 Hours (Table) 12/29/19 12/29/19 12/29/19 Range/Units 07:14 11:39 20:12 RBC (3.80-5.40) m/uL Hgb (11.4-16.0) gm/dL Hct (34.0-46.0) % MCHC (31.0-37.0) g/dL Lymphocytes # (1.0-4.8) k/uL Sodium (137-145) mmol/L BUN (7-17) mg/dL Creatinine (0.52-1.04) mg/dL POC Glucose (mg/dL) 326 H 315 H (75-99) mg/dL Calcium (8.4-10.2) mg/dL Procalcitonin 0.37 H (0.02-0.09) ng/mL 12/30/19 12/30/19 Range/Units 07:05 07:05 RBC 3.16 L (3.80-5.40) m/uL Hgb 9.3 L (11.4-16.0) gm/dL Hct 30.1 L (34.0-46.0) % MCHC 30.9 L (31.0-37.0) g/dL Lymphocytes # 0.5 L (1.0-4.8) k/uL Sodium 136 L (137-145) mmol/L BUN 24 H (7-17) mg/dL Creatinine 1.38 H (0.52-1.04) mg/dL POC Glucose (mg/dL) (75-99) mg/dL Calcium 7.7 L (8.4-10.2) mg/dL Procalcitonin (0.02-0.09) ng/mL Assessment and Plan Plan: Assessment: 1. Acute kidney injury mostly prerenal secondary to infection. Creatinine 2.05 on admission and is down to 1.38 today. No evidence of hydronephrosis noted on kidney ultrasound. 2. Abdominal wall abscess maintained on IV antibiotics. General surgery and infectious disease following. Scheduled for surgical drainage today. 3. Insulin-dependent diabetes mellitus. 4. Chronic A. fib maintained on Coreg and Cardizem. Anticoagulation currently held. 5. Chronic kidney disease stage III. Etiology is most likely diabetic kidney disease. Baseline creatinine in the range of 1-1.3. 6. Anemia of chronic kidney disease maintained on Aranesp. Plan: Maintain normal saline at 75 mL an hour. Avoid nephrotoxins. Repeat electrolytes in the morning.
[2019-12-30 11:10] LABS: Glucose,Whole Blood 100 mg/dL (75-99)
--- NOTE | 2019-12-30 12:52 | P.PN ---
Subjective This is a pleasant 74 years old male with past medical history of chronic atrial fibrillation on Eliquis, chronic systolic nonischemic heart failure, diabetes mellitus, hypertension, hypothyroidism. Patient presents with abdominal pain and vomiting. Patient was transferred from [facility] for abdominal pain related to her large abdominal abscess, she was transferred to this hospital because her primary surgeon Dr. Arango works here. 11/24-11/30 she was admitted for abdominal wall abscess, secondary to MRSA at that time she was discharged on 10 days of daptomycin At [place] her CT of the abdomen and pelvis without contrast showing mild increase in the size of abscess 11 x 4.5 x 6.4 cm, however there was no IV contrast Vitals stable and patient is afebrile. WBC is 12.3 K, hemoglobin 10.8, platelets normal, INR is normal. BMP is unremarkable except for elevated creatinine of 2.05, with baseline 1.0-1.5, liver enzymes not elevated. Glucose was low yesterday 52-73 In the emergency room patient was started on Zosyn on normal saline at 75 mL per Infectious disease already been consulted Her medication review was on at home she was taken Lantus 18 units every morning and NovoLog with meals as 4, 5, 6 units respectively. 12/29/2019 Patient lying in bed not in distress. She still have some discomfort and her abscess and possible incision and drainage, to be done tomorrow by surgery team.because of this her Eliquis was held and patient was placed on subcu heparin Her blood pressure this morning is 101/63, Coreg dose was lowered to help her blood pressure and renal function. Labs reviewed showing hemoglobin of 9.3. WBC came back to normal at 5.9, platelet also came down. It looks like has hemodilution.creatinine is coming down from 2.0 down to 1.7, renal ultrasound is with no hydronephrosis patient continue on daptomycinZosyn normal saline at 75 mL/h yesterday she needed 10 units of insulin on sliding scale, this morning 6 units. We'll Keep the patient on sliding scale as is going for surgery tomorrow 12/30/2019 patient is awake and alert. No chest pain or dyspnea.vital signs stable and she is saturating 100% on room air WBCs 4.0K, hemoglobin 9.3,creatinine better to 1.38 she hadCT of the abdomen and pelvis with no contrast showing persistent hernia with possible ileus or gastroenteritis Patient remains on normal saline 75 mL/h and nephrology on the case. also she is on daptomycin and Zosyn pending I&D today and follow culture results. ID team on the case review of system: CONSTITUTIONAL: No fever, no malaise, no fatigue. HEENT: No recent visual problems or hearing problems. Denied any sore throat. CARDIOVASCULAR: No orthopnea, PND, no palpitations, no syncope. PULMONARY: No shortness of breath, no cough, no hemoptysis. NEUROLOGICAL: No headaches, no weakness, no numbness. HEMATOLOGICAL: Denies any bleeding or petechiae. GENITOURINARY: Denies any burning micturition, frequency, or urgency. MUSCULOSKELETAL/RHEUMATOLOGICAL: Denies any joint pain, swelling, or any muscle pain. ENDOCRINE: Denies any polyuria or polydipsia. Active Medications Generic Name Dose Route Start Last Admin Trade Name Freq PRN Reason Stop Dose Admin Acetaminophen 325 mg 12/28/19 10:12 Tylenol Tab PO Q6H PRN Pain Atorvastatin Calcium 10 mg 12/28/19 20:00 12/29/19 20:52 Lipitor PO 10 mg HS@2000 [facility] Administration Bisacodyl 10 mg 12/28/19 10:12 Dulcolax RECTAL DAILY PRN Constipation Carvedilol 3.125 mg 12/28/19 20:00 12/30/19 09:16 Coreg PO 3.125 mg AC-BID@0800,2000 [facility] Administration Darbepoetin Larry 25 mcg 12/29/19 12:00 12/29/19 13:47 Aranesp SQ 25 mcg Q7D [facility] Administration Diltiazem HCl 90 mg 12/28/19 16:00 12/30/19 09:16 Cardizem Oral PO 90 mg TID [facility] Administration Famotidine 20 mg 12/29/19 09:00 12/30/19 09:16 Pepcid PO 20 mg DAILY [facility] Administration Heparin Sodium (Porcine) 5,000 unit 12/28/19 16:00 12/30/19 09:16 Heparin SQ 5,000 unit Q8HR [facility] Administration Hydromorphone HCl 0.5 mg 12/27/19 16:58 Dilaudid IVP Q3HR PRN Moderate Pain Sodium Chloride 1,000 mls @ 75 mls/hr 12/27/19 17:00 12/30/19 00:49 Saline 0.9% IV Not Given .[id number] [facility] Daptomycin 320 mg/ Sodium 50 mls @ 100 mls/hr 12/29/19 21:00 12/29/19 20:52 Chloride IVPB 100 mls/hr Q48H [facility] Administration Protocol Piperacillin Sod/Tazobactam 100 mls @ 25 mls/hr 12/30/19 16:00 Sod 3.375 gm/ Sodium Chloride IVPB Q8HR [facility] Insulin Aspart 0 unit 12/27/19 21:00 12/30/19 07:34 Novolog SQ Not Given ACHS [facility] Protocol Levothyroxine Sodium 25 mcg 12/29/19 06:00 12/30/19 05:48 Synthroid PO 25 mcg DAILY@0600 [facility] Administration Naloxone HCl 0.2 mg 12/27/19 16:58 Narcan IV Q2M PRN Opioid Reversal Ondansetron HCl 4 mg 12/27/19 16:58 12/28/19 23:14 Zofran IVP 4 mg Q8HR PRN Administration Nausea And Vomiting Simethicone 20 mg 12/29/19 09:00 12/30/19 09:15 Mylicon Drops MISCELLANE 20 mg DAILY [facility] Administration Objective - Vital Signs Vital signs: Vital Signs Temp 98.2 F 12/30/19 07:00 Pulse 61 12/30/19 07:00 Resp 18 12/30/19 07:00 BP 133/70 12/30/19 07:00 Pulse Ox 100 12/30/19 07:00 Intake & Output 12/29/19 12/30/19 12/30/19 18:59 06:59 18:59 Intake Total 700 Output Total 100 200 25 Balance 600 -200 -25 Intake: Intake, IV Titration 700 Amount Piperacillin-Tazobactam 3 100 .375 gm In Sodium Chloride 0.9% 100 ml @ 25 mls/hr IVPB Q12HR [facility] Rx #:[id number] Sodium Chloride 0.9% 1, 600 000 ml @ 75 mls/hr IV . [id number] [facility] Rx#:[id number] Output: Stool 100 200 25 Other: Voiding Method Toilet Bedside Commode Bedpan # Voids 1 1 - Exam GENERAL: The patient is alert and oriented x3, not in any acute distress. Well developed, well nourished. HEENT: Pupils are round and equally reacting to light. EOMI. No scleral icterus. No conjunctival pallor. Normocephalic, atraumatic. No pharyngeal erythema. No thyromegaly. CARDIOVASCULAR: S1 and S2 present. No murmurs, rubs, or gallops. PULMONARY: Chest is clear to auscultation, no wheezing or crackles. -ABDOMEN: Soft, nontender, nondistended, normoactive bowel sounds. No palpable organomegaly. Left lower colostomy and below it there is fullness with redness and some serosanguineous discharge, associated with mild tenderness no rebound tenderness MUSCULOSKELETAL: No joint swelling or deformity. EXTREMITIES: No cyanosis, clubbing, or pedal edema. NEUROLOGICAL: Gross neurological examination did not reveal any focal deficits. SKIN: No rashes. No petechiae - Labs CBC & Chem 7: 12/30/19 07:05 12/30/19 07:05 Labs: Abnormal Lab Results - Last 24 Hours (Table) 12/29/19 12/29/19 12/30/19 Range/Units 07:14 20:12 07:05 RBC 3.16 L (3.80-5.40) m/uL Hgb 9.3 L (11.4-16.0) gm/dL Hct 30.1 L (34.0-46.0) % MCHC 30.9 L (31.0-37.0) g/dL Lymphocytes # 0.5 L (1.0-4.8) k/uL Sodium (137-145) mmol/L BUN (7-17) mg/dL Creatinine (0.52-1.04) mg/dL POC Glucose (mg/dL) 315 H (75-99) mg/dL Calcium (8.4-10.2) mg/dL Procalcitonin 0.37 H (0.02-0.09) ng/mL 12/30/19 12/30/19 Range/Units 07:05 11:09 RBC (3.80-5.40) m/uL Hgb (11.4-16.0) gm/dL Hct (34.0-46.0) % MCHC (31.0-37.0) g/dL Lymphocytes # (1.0-4.8) k/uL Sodium 136 L (137-145) mmol/L BUN 24 H (7-17) mg/dL Creatinine 1.38 H (0.52-1.04) mg/dL POC Glucose (mg/dL) 100 H (75-99) mg/dL Calcium 7.7 L (8.4-10.2) mg/dL Procalcitonin (0.02-0.09) ng/mL Assessment and Plan Assessment: Worsening and enlarged abdominal abscesses, 11 x 4.5 x 6.4 cm marga-Ileostomy persistent hernia with possible ileus and/or enteritis Acute kidney injury chronic kidney disease stage IIIB, secondary to diabetic nephropathy Diabetes mellitus with hypoglycemia, POD Chronic atrial fibrillation on Eliquis Chronic systolic nonischemic heart failure Hypertension Hypothyroidism Plan: This is a pleasant 74 years old female who presents with worsening abdominal abscess. Continue with Zosyn. Follow-up ID recommendation. Need for surgical intervention will be addressed by Surgery primary team the patient is going for surgery on 12/29 for I&D. Follow culture results. Continue with insulin sliding scale, continue with antibiotics. Nephrology service on the case Labs and medication were reviewed.. Continue same treatment. Continue with sym ptomatic treatment. Resume home medication. Monitor lytes and vitals. DVT and GI prophylaxis. Further recommendations of the clinical course of the patient DVT prophylaxis: Eliquis GI Prophylaxis: Pepcid
[2019-12-30] MEDS ORDERED: IV FLUID CONTINUATION 1,000 ML IV ONE (15:13)
[2019-12-30 15:38] LABS: Glucose,Whole Blood 127 mg/dL (75-99)
[2019-12-30] MEDS ORDERED: ROCURONIUM BROMIDE 10 MG/ML 5 ML VIAL IV ONE (16:05)
[2019-12-30] MEDS ORDERED: NEOSTIGMINE 1 MG/ML 10 ML VIAL ONE (16:05)
[2019-12-30] MEDS ORDERED: fentaNYL (PF) 50 MCG/ML 2 ML AMP ONE (16:05)
[2019-12-30] MEDS ORDERED: PROPOFOL 10 MG/ML 20 ML VIAL IV ONE (16:05)
[2019-12-30] MEDS ORDERED: SUCCINYLCHOLINE CHLORIDE 100 MG/5 ML SYR IV ONE (16:05)
[2019-12-30] MEDS ORDERED: GLYCOPYRROLATE 0.2 MG/ML 2 ML VIAL ONE (16:05)
[2019-12-30] MEDS ORDERED: LIDOCAINE 1% INJ 10MG/ML (20 ML MDV) ONE (16:05)
--- NOTE | 2019-12-30 16:38 | P.OP ---
Date of Procedure: 12/30/19 Preoperative Diagnosis: Abdominal wall abscess Postoperative Diagnosis: Abdominal wall abscess Procedure(s) Performed: Incision and drainage and debridement of abdominal abscess Anesthesia: TG Surgeon: Cedric Quintanilla Estimated Blood Loss (ml): 5 Pathology: none sent Condition: stable Disposition: PACU Description of Procedure: The patient's placed on the operative table in the supine position. She received general anesthesia. Her abdomen was prepped and draped usual sterile fashion. At the inferior portion of reverse previous midline laparotomy scar there was an abscess sinus. The skin was incised using a 15 blade and using large cautery the abscess was unroofed. The abscess measured approximately 10 10 x 4 cm. The wound was debrided with wet-to-dry gauze and some fibropurulent material was removed from the abscess cavity. The abscess was then packed with wet-to-dry Kerlix. Patient top procedure well and was sent to recovery in stable condition
--- NOTE | 2019-12-30 17:03 | PN ---
PROGRESS NOTE DATE OF SERVICE: 12/30/2019 REASON FOR FOLLOWUP: Abdominal wall abscess. INTERVAL HISTORY: The patient is currently afebrile. The patient is breathing comfortably, waiting for surgical drainage of this abscess. No chest pain, shortness of breath or cough. PHYSICAL EXAMINATION: Blood pressure 156/75 with a pulse of 61, temperature 97.9. She is 98% on room air. General description is an elderly female up in the chair in no distress. RESPIRATORY SYSTEM: Unlabored breathing. Clear to auscultation anteriorly. HEART: S1, S2. Regular rate and rhythm. ABDOMEN: Soft. No tenderness. LABS: Hemoglobin 9.3, white count 4.0, BUN of 24, creatinine 1.38. DIAGNOSTIC IMPRESSION AND PLAN: Patient with abdominal wall abscess, previous history of MRSA infection, waiting for surgical drainage and deep cultures. Continue with Zosyn, daptomycin and monitor clinical course closely. MMODL / IJN: [id number] /
[2019-12-30 20:55] LABS: Glucose,Whole Blood 137 mg/dL (75-99)
[2019-12-30] MEDS: ATORVASTATIN 10 MG TAB PO SCH (22:31)
[2019-12-31] MEDS: PIPERACILLIN-TAZOBACTAM 3.375 GM in SODIUM CHLORIDE 0.9% 100 ML IVPB SCH ×4 (00:11→23:53)
[2019-12-31] MEDS: HEPARIN SODIUM,PORCINE 5,000 UNIT/ML 1 ML VIAL SQ SCH ×4 (00:11→23:55)
[2019-12-31] MEDS: SODIUM CHLORIDE 0.9% 1,000 ML IV SCH ×2 (05:10→12:08)
[2019-12-31] MEDS: LEVOTHYROXINE 25 MCG TAB PO SCH (05:45)
[2019-12-31 07:10] LABS: Glucose,Whole Blood 116 mg/dL (75-99)
[2019-12-31] MEDS: INSULIN ASPART (NovoLOG) 100 UNIT/ML VIAL SQ SCH ×4 (07:17→21:40)
[2019-12-31] MEDS: SIMETHICONE 40 MG/0.6 ML DROPS 2,000 MG/30 ML BOTTLE MISCELLANE SCH (07:57)
[2019-12-31] MEDS: DILTIAZEM ORAL 30 MG TAB PO SCH ×3 (07:58→21:40)
[2019-12-31] MEDS: CARVEDILOL 3.125 MG TAB PO SCH ×2 (07:58→21:40)
[2019-12-31] MEDS: FAMOTIDINE 20 MG TAB PO SCH (07:58)
[2019-12-31 09:24] LABS: Basophils % (A) 0 %; Eosinophils # (A) 0.3 k/uL (0-0.7); Eosinophils % (A) 7 %; HCT 35.3 % (34.0-46.0); HGB 11.3 gm/dL (11.4-16.0); Hypochromasia Moderate; Lymphocytes # (A) 0.6 k/uL (1.0-4.8); Lymphocytes % (A) 12 %; MCH 30.9 pg (25.0-35.0); MCV 96.5 fL (80.0-100.0); Mean Platelet Volume 7.5; Monocytes # (A) 0.2 k/uL (0-1.0); Monocytes % (A) 5 %; Neutrophils # (A) 3.6 k/uL (1.3-7.7); Neutrophils % (A) 74 %; Platelet Count 333 k/uL (150-450); RBC 3.66 m/uL (3.80-5.40); RDW 15.1 % (11.5-15.5); WBC 4.8 k/uL (3.8-10.6)
[2019-12-31 09:26] LABS: Calcium 8.5 mg/dL (8.4-10.2); Magnesium 1.6 mg/dL (1.6-2.3); Potassium 4.1 mmol/L (3.5-5.1)
--- NOTE | 2019-12-31 10:15 | P.PN ---
Subjective Patient is seen in follow-up for acute kidney injury on chronic kidney disease. Patient baseline creatinine is in the range of 1-1.3. Renal function is at baseline. Oral intake is fair. No vomiting. Good output from ileostomy. Admits to soreness in the abdomen. Vital signs are stable. General: The patient appeared well nourished and normally developed. HEENT: Head exam is unremarkable. Neck is without jugular venous distension. LUNGS: Lungs are clear to auscultation and percussion. Breath sounds decreased. HEART: Rate and Rhythm are regular. First and second heart sounds normal. No murmurs, rubs or gallops. ABDOMEN: Generalized tenderness. Ileostomy noted. EXTREMITITES: No clubbing, cyanosis, or edema. Objective - Vital Signs Vital signs: Vital Signs Temp 98.1 F 12/31/19 07:00 Pulse 58 L 12/31/19 07:00 Resp 16 12/31/19 07:58 BP 155/77 12/31/19 07:00 Pulse Ox 97 12/31/19 07:00 Intake & Output 12/30/19 12/31/19 12/31/19 18:59 06:59 18:59 Intake Total 400 Output Total 27 25 Balance 373 -25 Intake: IV 400 Output: Stool 25 25 Estimated Blood Loss 2 Other: Voiding Method Toilet Bedside Commode Bedpan # Voids 2 6 - Labs CBC & Chem 7: 12/31/19 08:26 12/31/19 08:26 Labs: Abnormal Lab Results - Last 24 Hours (Table) 12/30/19 12/30/19 12/30/19 Range/Units 11:09 15:18 20:53 RBC (3.80-5.40) m/uL Hgb (11.4-16.0) gm/dL Lymphocytes # (1.0-4.8) k/uL Creatinine (0.52-1.04) mg/dL Glucose (74-99) mg/dL POC Glucose (mg/dL) 100 H 127 H 137 H (75-99) mg/dL 12/31/19 12/31/19 12/31/19 Range/Units 07:07 08:26 08:26 RBC 3.66 L (3.80-5.40) m/uL Hgb 11.3 L (11.4-16.0) gm/dL Lymphocytes # 0.6 L (1.0-4.8) k/uL Creatinine 1.17 H (0.52-1.04) mg/dL Glucose 165 H (74-99) mg/dL POC Glucose (mg/dL) 116 H (75-99) mg/dL Assessment and Plan Plan: Assessment: 1. Acute kidney injury mostly prerenal secondary to infection. Creatinine 2.05 on admission and is down to 1.17 today. No evidence of hydronephrosis noted on kidney ultrasound. 2. Abdominal wall abscess maintained on IV antibiotics. General surgery and infectious disease following. S/p incision and drainage on December 29. 3. Insulin-dependent diabetes mellitus. 4. Chronic A. fib maintained on Coreg and Cardizem. Anticoagulation currently held. 5. Chronic kidney disease stage III. Etiology is most likely diabetic kidney disease. Baseline creatinine in the range of 1-1.3. 6. Anemia of chronic kidney disease maintained on Aranesp. 7. Hypomagnesemia from poor oral intake. Plan: Maintain normal saline at 75 mL an hour. Replace magnesium. 2 g IV today. Avoid nephrotoxins. Repeat electrolytes in the morning.
[2019-12-31 11:48] LABS: Glucose,Whole Blood 304 mg/dL (75-99)
[2019-12-31] MEDS: MAGNESIUM SULFATE-D5W PMX 1 GM in DEXTROSE/WATER 1 100ML.BAG IVPB SCH ×2 (12:07→13:08)
--- NOTE | 2019-12-31 12:59 | P.PN ---
Subjective This is a pleasant 74 years old male with past medical history of chronic atrial fibrillation on Eliquis, chronic systolic nonischemic heart failure, diabetes mellitus, hypertension, hypothyroidism. Patient presents with abdominal pain and vomiting. Patient was transferred from [facility] for abdominal pain related to her large abdominal abscess, she was transferred to this hospital because her primary surgeon Dr. Arango works here. 11/24-11/30 she was admitted for abdominal wall abscess, secondary to MRSA at that time she was discharged on 10 days of daptomycin At [place] her CT of the abdomen and pelvis without contrast showing mild increase in the size of abscess 11 x 4.5 x 6.4 cm, however there was no IV contrast Vitals stable and patient is afebrile. WBC is 12.3 K, hemoglobin 10.8, platelets normal, INR is normal. BMP is unremarkable except for elevated creatinine of 2.05, with baseline 1.0-1.5, liver enzymes not elevated. Glucose was low yesterday 52-73 In the emergency room patient was started on Zosyn on normal saline at 75 mL per Infectious disease already been consulted Her medication review was on at home she was taken Lantus 18 units every morning and NovoLog with meals as 4, 5, 6 units respectively. 12/29/2019 Patient lying in bed not in distress. She still have some discomfort and her abscess and possible incision and drainage, to be done tomorrow by surgery team.because of this her Eliquis was held and patient was placed on subcu heparin Her blood pressure this morning is 101/63, Coreg dose was lowered to help her blood pressure and renal function. Labs reviewed showing hemoglobin of 9.3. WBC came back to normal at 5.9, platelet also came down. It looks like has hemodilution.creatinine is coming down from 2.0 down to 1.7, renal ultrasound is with no hydronephrosis patient continue on daptomycinZosyn normal saline at 75 mL/h yesterday she needed 10 units of insulin on sliding scale, this morning 6 units. We'll Keep the patient on sliding scale as is going for surgery tomorrow 12/30/2019 patient is awake and alert. No chest pain or dyspnea.vital signs stable and she is saturating 100% on room air WBCs 4.0K, hemoglobin 9.3,creatinine better to 1.38 she hadCT of the abdomen and pelvis with no contrast showing persistent hernia with possible ileus or gastroenteritis Patient remains on normal saline 75 mL/h and nephrology on the case. also she is on daptomycin and Zosyn pending I&D today and follow culture results. ID team on the case 12/31/2019 She is a status post I and D for her abdominal wall abscesses yesterday. Today is postop day #1. She sis seated in her chair and pleasant , she is having her diet with no nausea vomiting vitals are stable, and Improvement with Creatinine down to 1.17. Sugar Controlled She Remains on Zosyn, Daptomycin Continue with normal saline at 75 mL/h as per nephrology Objective - Vital Signs Vital signs: Vital Signs Temp 98.1 F 12/31/19 07:00 Pulse 58 L 12/31/19 07:00 Resp 16 12/31/19 07:58 BP 155/77 12/31/19 07:00 Pulse Ox 97 12/31/19 07:00 Intake & Output 12/30/19 12/31/19 12/31/19 18:59 06:59 18:59 Intake Total 400 Output Total 27 25 Balance 373 -25 Intake: IV 400 Output: Stool 25 25 Estimated Blood Loss 2 Other: Voiding Method Toilet Bedside Commode Bedpan # Voids 2 6 - Exam GENERAL: The patient is alert and oriented x3, not in any acute distress. Well developed, well nourished. HEENT: Pupils are round and equally reacting to light. EOMI. No scleral icterus. No conjunctival pallor. Normocephalic, atraumatic. No pharyngeal erythema. No thyromegaly. CARDIOVASCULAR: S1 and S2 present. No murmurs, rubs, or gallops. PULMONARY: Chest is clear to auscultation, no wheezing or crackles. -ABDOMEN: Soft, nontender, nondistended, normoactive bowel sounds. No palpable organomegaly. Left lower colostomy and below it there is fullness with redness and some serosanguineous discharge, associated with mild tenderness no rebound tenderness MUSCULOSKELETAL: No joint swelling or deformity. EXTREMITIES: No cyanosis, clubbing, or pedal edema. NEUROLOGICAL: Gross neurological examination did not reveal any focal deficits. SKIN: No rashes. No petechiae - Labs CBC & Chem 7: 12/31/19 08:26 12/31/19 08:26 Labs: Abnormal Lab Results - Last 24 Hours (Table) 12/30/19 12/30/19 12/31/19 Range/Units 15:18 20:53 07:07 RBC (3.80-5.40) m/uL Hgb (11.4-16.0) gm/dL Lymphocytes # (1.0-4.8) k/uL Creatinine (0.52-1.04) mg/dL Glucose (74-99) mg/dL POC Glucose (mg/dL) 127 H 137 H 116 H (75-99) mg/dL 12/31/19 12/31/19 12/31/19 Range/Units 08:26 08:26 11:45 RBC 3.66 L (3.80-5.40) m/uL Hgb 11.3 L (11.4-16.0) gm/dL Lymphocytes # 0.6 L (1.0-4.8) k/uL Creatinine 1.17 H (0.52-1.04) mg/dL Glucose 165 H (74-99) mg/dL POC Glucose (mg/dL) 304 H (75-99) mg/dL Assessment and Plan Assessment: Worsening and enlarged abdominal abscesses, 11 x 4.5 x 6.4 cm marga-Ileostomy persistent hernia with possible ileus and/or enteritis Acute kidney injury chronic kidney disease stage IIIB, secondary to diabetic nephropathy Diabetes mellitus with hypoglycemia, POD Chronic atrial fibrillation on Eliquis Chronic systolic nonischemic heart failure Hypertension Hypothyroidism Plan: This is a pleasant 74 years old female who presents with worsening abdominal abscess. Continue with Zosyn. Follow-up ID recommendation. Need for surgical intervention will be addressed by Surgery primary team the patient is going for surgery on 12/29 for I&D. Follow culture results. Continue with insulin sliding scale, continue with antibiotics. Nephrology service on the case Labs and medication were reviewed.. Continue same treatment. Continue with symptomatic treatment. Resume home medication. Monitor lytes and vitals. DVT and GI prophylaxis. Further recommendations of the clinical course of the pat ient DVT prophylaxis: Eliquis GI Prophylaxis: Pepcid
[2019-12-31] MEDS ORDERED: DAPTOMYCIN IVPB SCH (15:00)
[2019-12-31] MEDS ORDERED: SODIUM CHLORIDE 0.9% IVPB SCH (15:00)
--- NOTE | 2019-12-31 15:02 | P.PN ---
Subjective Progress Note Date: 12/31/19 CHIEF COMPLAINT: abscess HISTORY OF PRESENT ILLNESS: Patient is status post incision and drainage and debridement of abdominal abscess. Postoperative day #1. Patient examined at the bedside with Dr. Quintanilla. Patient denies abdominal pain. Tolerating liquid t without nausea or vomiting. WBC 4.8. Afebrile. PHYSICAL EXAM: VITAL SIGNS: Reviewed. GENERAL: Well-developed in no acute distress. HEENT: No sclera icterus. Extraocular movements grossly intact. Moist buccal mucosa. Head is atraumatic, normocephalic. ABDOMEN: Soft. Nondistended. Nontender. Ostomy noted. Dressing clean dry intact. NEUROLOGIC: Alert and oriented. Cranial nerves II through XII grossly intact. ASSESSMENT: 1. Abdominal wall abscess PLAN: -Continue antibiotics. ID following. Monitor WBC -Advance diet -Continue wet-to-dry Kerlix dressing changes to abdomen daily. -Wound care [employer] MACHINE on consult. Anticipate wound vac to abdomen. Will defer decision to their service. Nurse practitioner note has been reviewed by physician. Signing provider agrees with the documented findings, assessment, and plan of care. Objective - Vital Signs Vital signs: Vital Signs Temp 98.1 F 12/31/19 07:00 Pulse 58 L 12/31/19 07:00 Resp 16 12/31/19 07:58 BP 155/77 12/31/19 07:00 Pulse Ox 97 12/31/19 07:00 Intake & Output 12/30/19 12/31/19 12/31/19 18:59 06:59 18:59 Intake Total 400 Output Total 27 25 Balance 373 -25 Weight 54.431 kg Intake: IV 400 Output: Stool 25 25 Estimated Blood Loss 2 Other: Voiding Method Toilet Bedside Commode Bedpan # Voids 2 6 2 - Labs CBC & Chem 7: 12/31/19 08:26 12/31/19 08:26 Labs: Abnormal Lab Results - Last 24 Hours (Table) 12/30/19 12/30/19 12/31/19 Range/Units 15:18 20:53 07:07 RBC (3.80-5.40) m/uL Hgb (11.4-16.0) gm/dL Lymphocytes # (1.0-4.8) k/uL Creatinine (0.52-1.04) mg/dL Glucose (74-99) mg/dL POC Glucose (mg/dL) 127 H 137 H 116 H (75-99) mg/dL 12/31/19 12/31/19 12/31/19 Range/Units 08:26 08:26 11:45 RBC 3.66 L (3.80-5.40) m/uL Hgb 11.3 L (11.4-16.0) gm/dL Lymphocytes # 0.6 L (1.0-4.8) k/uL Creatinine 1.17 H (0.52-1.04) mg/dL Glucose 165 H (74-99) mg/dL POC Glucose (mg/dL) 304 H (75-99) mg/dL
[2019-12-31 16:41] LABS: Glucose,Whole Blood 313 mg/dL (75-99)
--- NOTE | 2019-12-31 17:33 | P.CONS ---
History of Present Illness - Reason for Consult Consult date: 12/31/19 Wound care - History of Present Illness This is a 74-year-old pleasant female who is being seen by the wound care center on [address] for a ulceration to the abdomen. Patient underwent surgical I&D and debridement for a abscess to the abdominal wall cavity. At this time patient has gauze packing to the site with AVD in place. She is complaining of abdominal discomfort to the lower dominant area. Review of Systems Review Of Systems: Constitutional: Reports pain . No fever, no chills, no night sweats. No weight change. No weakness, fatigue or lethargy. No daytime sleepiness. Integumentary:reports wounds, no lesions. No rash or pruritus. No unusual bruising. No change in hair or nails. Past Medical History Past Medical History: Atrial Fibrillation, Heart Failure, Diabetes Mellitus, Hyperlipidemia, Hypertension, Thyroid Disorder Additional Past Medical History / Comment(s): Mild developmental delay, the patient lives in a foster home since 1990, CHF with systolic heart failure/nonischemic cardiomyopathy, chronic atrial fibrillation, on Eliquis, hypertension, hyperlipidemia, diabetes mellitus, hypothyroidism, abdominal abscess History of Any Multi-Drug Resistant Organisms: MRSA Year Discovered:: 11/26/19 MDRO Source:: ABDOMEN Past Surgical History: Bladder Surgery, Bowel Resection Additional Past Surgical History / Comment(s): HAS COLOSTOMY. Past Anesthesia/Blood Transfusion Reactions: Unable to Obtain Past Psychological History: No Psychological Hx Reported Smoking Status: Never smoker Past Alcohol Use History: None Reported Past Drug Use History: None Reported - Past Family History Mother Family Medical History: Unable to Obtain Medications and Allergies Home Medications Medication Instructions Recorded Confirmed Type Atorvastatin [Lipitor] 10 mg PO HS@199906/03/18 12/27/19 History Calcium Acetate [PhosLo] 667 mg PO DAILY@0800 06/03/18 12/27/19 History Calcium Carbonate/Vitamin D3 1 tab PO DAILY@0800 06/03/18 12/27/19 History [Calcium 600-Vit D3 400 Tablet] Levothyroxine Sodium [Synthroid] 25 mcg PO DAILY@0600 06/03/18 12/27/19 History Magnesium Oxide [Mag-Ox] 400 mg PO BID@0800,199906/03/18 12/27/19 History Multivitamins, Thera [Multivitamin 1 tab PO DAILY@0800 10/16/18 05/10/20 History (formulary)] Loratadine 10 mg PO DAILY@79903/31/19 12/27/19 History Apixaban [Eliquis] 2.5 mg PO BID@799,199905/31/19 12/27/19 History Bisacodyl [Dulcolax] 10 mg RECTAL DAILY PRN 11/25/19 12/27/19 History Carvedilol [Coreg] 6.25 mg PO AC-BID@799,199911/25/19 12/27/19 History Furosemide [Lasix] 40 mg PO DAILY@79911/25/19 12/27/19 History Magnesium Hydroxide [Milk of 2,400 mg PO DAILY PRN 11/25/19 12/27/19 History Magnesia Concentrate] Ondansetron [Zofran ODT] 4 mg PO AC-TID 11/25/19 12/27/19 History Simethicone 40 mg/0.6 ml Drops 20 mg MISCELLANE DAILY 11/25/19 12/27/19 History [Mylicon Drops] Sodium Chloride Tab 1 gm PO DAILY@79911/25/19 12/27/19 History Acetaminophen [Tylenol Arthritis] 650 mg PO Q6H PRN 12/27/19 12/27/19 History DAPTOmycin [Cubicin] 350 mg IVPB HS@199912/27/19 12/27/19 History Diltiazem HCl 90 mg PO TID 12/27/19 12/27/19 History Famotidine [Pepcid] 20 mg PO DAILY@79912/27/19 12/27/19 History INSULIN ASPART (NovoLOG) [NovoLOG 4 unit SQ AC-SUPPER 12/27/19 12/27/19 History (formulary)] INSULIN ASPART (NovoLOG) [NovoLOG 5 unit SQ AC-BRKFST 12/27/19 12/27/19 History (formulary)] INSULIN ASPART (NovoLOG) [NovoLOG 6 unit SQ AC-LUNCH 12/27/19 12/27/19 History (formulary)] INSULIN ASPART (NovoLOG) [NovoLOG See Protocol SQ ACHS 12/27/19 12/27/19 History (formulary)] Insulin Glargine,Hum.rec.anlog 18 unit SQ AC-BRKFST@0800 12/27/19 12/27/19 History [Chani Sanchez U-100] traMADol HCL 50 mg PO Q12H PRN 12/27/19 12/27/19 History Allergies Allergy/AdvReac Type Severity Reaction Status Date / Time No Known Allergies Allergy Verified 12/27/19 17:19 Physical Exam Vitals: Vital Signs Temp Pulse Resp BP Pulse Ox 12/31/19 15:00 97.9 F 61 17 120/52 100 12/31/19 07:58 16 12/31/19 07:00 98.1 F 58 L 16 155/77 97 12/31/19 03:22 18 12/31/19 00:11 18 12/30/19 19:45 18 12/30/19 19:00 48 L 180/92 98 12/30/19 18:50 61 120/51 99 12/30/19 18:30 55 L 152/76 98 12/30/19 18:20 55 L 152/76 98 12/30/19 18:15 55 L 152/76 98 12/30/19 18:05 61 153/77 99 12/30/19 18:00 61 153/77 99 12/30/19 17:50 59 L 146/62 99 12/30/19 17:45 59 L 146/62 99 12/30/19 17:35 97.4 F L 55 L 147/71 98 12/30/19 17:30 97.4 F L 55 L 18 147/71 98 Intake and Output 12/31/19 12/31/19 12/31/19 06:59 14:59 22:59 Output Total 25 Balance -25 Output: Stool 25 Other: Voiding Method Toilet Bedside Commode Bedpan # Voids 2 Weight 54.431 kg Physical exam: General Appearance: Alert, cooperative, no distress, appears stated age. Skin: Abdominal ulceration with gauze packing in place, edge of ulceration is showing granulation periwound shows excoriation and blistering no open ulcerations at this time. Significant amount of serosanguineous drainage noted. Ostomy noted . all other Skin color, texture, tugor normal, no rashes or lesions. Neurologic: Alert oriented x3 Results CBC & Chem 7: 12/31/19 08:26 12/31/19 08:26 Labs: Abnormal Lab Results - Last 24 Hours (Table) 12/30/19 12/31/19 12/31/19 Range/Units 20:53 07:07 08:26 RBC 3.66 L (3.80-5.40) m/uL Hgb 11.3 L (11.4-16.0) gm/dL Lymphocytes # 0.6 L (1.0-4.8) k/uL Creatinine (0.52-1.04) mg/dL Glucose (74-99) mg/dL POC Glucose (mg/dL) 137 H 116 H (75-99) mg/dL 12/31/19 12/31/19 12/31/19 Range/Units 08:26 11:45 16:39 RBC (3.80-5.40) m/uL Hgb (11.4-16.0) gm/dL Lymphocytes # (1.0-4.8) k/uL Creatinine 1.17 H (0.52-1.04) mg/dL Glucose 165 H (74-99) mg/dL POC Glucose (mg/dL) 304 H 313 H (75-99) mg/dL Assessment and Plan (1) Diabetes with skin ulcer Current Visit: Yes Status: Acute Code(s): E11.622 - TYPE 2 DIABETES MELLITUS WITH OTHER SKIN ULCER; L98.499 - NON-PRESSURE CHRONIC ULCER OF SKIN OF SITES W UNSP SEVERITY SNOMED Code(s): 19195195 (2) Delayed surgical wound healing Current Visit: Yes Status: Acute Code(s): T81.89XA - OTH COMPLICATIONS OF PROCEDURES, NEC, INIT SNOMED Code(s): 746796456 (3) Abdominal wall abscess Current Visit: Yes Status: Acute Code(s): L02.211 - CUTANEOUS ABSCESS OF ABDOMINAL WALL SNOMED Code(s): 46478839 Plan: Utilizing barrier cream to the excoriated lower abdomen. Absorptive silver above the gauze packing to assist with drainage. Continue with ABD. Initiate negative pressure wound therapy upon discharge with home care at 125 mmHg continuous suction with black foam. Change Saturday. Patient to be scheduled in the wound care center next week for continued treatment. Patient verbalized understanding. Discussed with Dr. Quintanilla's [employer]ER Thank you for the consultation. Any questions please contact the wound care center DNP note has been reviewed and discussed with Dr. Hagen and the impression and plan of care has been directed as dictated.
--- NOTE | 2019-12-31 17:34 | PN ---
PROGRESS NOTE DATE OF SERVICE: 12/31/2019 REASON FOR FOLLOWUP: Abdominal wall abscess. INTERVAL HISTORY: The patient is currently afebrile. The patient was taken to the OR yesterday. Patient is status post drainage of the abdominal wall abscess. Unfortunately no culture has been done. The patient tolerated the procedure. Currently pain is controlled. No chest pain, shortness of breath or cough or any diarrhea. PHYSICAL EXAMINATION: Blood pressure 120/52 with a pulse of 61, temperature 97.9. She is 100% on room air. General description is an elderly female up in the chair in no distress. RESPIRATORY SYSTEM: Unlabored breathing. Clear to auscultation anteriorly. HEART: S1, S2. Regular rate and rhythm. ABDOMEN: Soft. No tenderness. LABS: Hemoglobin 11.3, white count 4.8, creatinine 1.17. DIAGNOSTIC IMPRESSION AND PLAN: Patient with abdominal wall abscess, status post surgical drainage with no cultures done. Currently on daptomycin and Zosyn; to continue. Local care per Surgery. Continue with supportive care. MMODL / IJN: [id number] /
[2019-12-31 21:31] LABS: Glucose,Whole Blood 243 mg/dL (75-99)
[2019-12-31] MEDS: ATORVASTATIN 10 MG TAB PO SCH (21:40)
[2020-01-01] MEDS: LEVOTHYROXINE 25 MCG TAB PO SCH (05:24)
[2020-01-01 07:13] LABS: Glucose,Whole Blood 177 mg/dL (75-99)
[2020-01-01] MEDS: SODIUM CHLORIDE 0.9% 1,000 ML IV SCH (07:26)
[2020-01-01] MEDS: INSULIN ASPART (NovoLOG) 100 UNIT/ML VIAL SQ SCH ×4 (07:52→21:09)
[2020-01-01] MEDS: HEPARIN SODIUM,PORCINE 5,000 UNIT/ML 1 ML VIAL SQ SCH (07:52)
[2020-01-01] MEDS: PIPERACILLIN-TAZOBACTAM 3.375 GM in SODIUM CHLORIDE 0.9% 100 ML IVPB SCH ×2 (07:52→16:04)
[2020-01-01] MEDS: CARVEDILOL 3.125 MG TAB PO SCH ×2 (07:52→21:09)
[2020-01-01] MEDS: DILTIAZEM ORAL 30 MG TAB PO SCH ×3 (08:34→21:09)
[2020-01-01] MEDS: FAMOTIDINE 20 MG TAB PO SCH (08:34)
[2020-01-01] MEDS: SIMETHICONE 40 MG/0.6 ML DROPS 2,000 MG/30 ML BOTTLE MISCELLANE SCH (08:34)
[2020-01-01 08:42] LABS: Calcium 7.5 mg/dL (8.4-10.2); Magnesium 1.8 mg/dL (1.6-2.3); Potassium 3.6 mmol/L (3.5-5.1)
--- NOTE | 2020-01-01 10:12 | P.PN ---
Subjective This is a pleasant 74 years old male with past medical history of chronic atrial fibrillation on Eliquis, chronic systolic nonischemic heart failure, diabetes mellitus, hypertension, hypothyroidism. Patient presents with abdominal pain and vomiting. Patient was transferred from [facility] for abdominal pain related to her large abdominal abscess, she was transferred to this hospital because her primary surgeon Dr. Arango works here. 11/24-11/30 she was admitted for abdominal wall abscess, secondary to MRSA at that time she was discharged on 10 days of daptomycin At [place] her CT of the abdomen and pelvis without contrast showing mild increase in the size of abscess 11 x 4.5 x 6.4 cm, however there was no IV contrast Vitals stable and patient is afebrile. WBC is 12.3 K, hemoglobin 10.8, platelets normal, INR is normal. BMP is unremarkable except for elevated creatinine of 2.05, with baseline 1.0-1.5, liver enzymes not elevated. Glucose was low yesterday 52-73 In the emergency room patient was started on Zosyn on normal saline at 75 mL per Infectious disease already been consulted Her medication review was on at home she was taken Lantus 18 units every morning and NovoLog with meals as 4, 5, 6 units respectively. 12/29/2019 Patient lying in bed not in distress. She still have some discomfort and her abscess and possible incision and drainage, to be done tomorrow by surgery team.because of this her Eliquis was held and patient was placed on subcu heparin Her blood pressure this morning is 101/63, Coreg dose was lowered to help her blood pressure and renal function. Labs reviewed showing hemoglobin of 9.3. WBC came back to normal at 5.9, platelet also came down. It looks like has hemodilution.creatinine is coming down from 2.0 down to 1.7, renal ultrasound is with no hydronephrosis patient continue on daptomycinZosyn normal saline at 75 mL/h yesterday she needed 10 units of insulin on sliding scale, this morning 6 units. We'll Keep the patient on sliding scale as is going for surgery tomorrow 12/30/2019 patient is awake and alert. No chest pain or dyspnea.vital signs stable and she is saturating 100% on room air WBCs 4.0K, hemoglobin 9.3,creatinine better to 1.38 she hadCT of the abdomen and pelvis with no contrast showing persistent hernia with possible ileus or gastroenteritis Patient remains on normal saline 75 mL/h and nephrology on the case. also she is on daptomycin and Zosyn pending I&D today and follow culture results. ID team on the case 12/31/2019 She is a status post I and D for her abdominal wall abscesses yesterday. Today is postop day #1. She sis seated in her chair and pleasant , she is having her diet with no nausea vomiting vitals are stable, and Improvement with Creatinine down to 1.17. Sugar Controlled She Remains on Zosyn, Daptomycin Continue with normal saline at 75 mL/h as per nephrology 01/01/2020 She is a status post I and D for her abdominal wall abscesses . Today is postop day #1. She is written for wound VAC to be placed. She feels better. She is able to tolerate diet and she is smiling a pleasant with no new complaints. No abdominal pain. Vitals are stable. Creatinine is 1.3 today, which is her baseline, we'll lower the fl. of normal saline to 50 mL per hour. She remains on Zosyn and daptomycin, and we will resume her Eliquis today Patient might benefit from ECF for rehab upon discharge and social group worker consult, patient agrees Objective - Vital Signs Vital signs: Vital Signs Temp 98.9 F 01/01/20 07:00 Pulse 64 01/01/20 07:00 Resp 17 01/01/20 07:00 BP 128/73 01/01/20 07:00 Pulse Ox 95 01/01/20 07:00 Intake & Output 12/31/19 01/01/20 01/01/20 18:59 06:59 18:59 Intake Total 1440 Output Total 25 25 Balance -25 1415 Weight 54.431 kg Intake: Intake, IV Titration 1440 Amount Piperacillin-Tazobactam 3 200 .375 gm In Sodium Chloride 0.9% 100 ml @ 25 mls/hr IVPB Q8HR [facility] Rx# :[id number] Sodium Chloride 0.9% 1, 1240 000 ml @ 75 mls/hr IV . [id number] [facility] Rx#:[id number] Output: Stool 25 25 Other: Voiding Method Toilet Toilet Bedside Commode Bedpan # Voids 2 2 - Exam GENERAL: The patient is alert and oriented x3, not in any acute distress. Well developed, well nourished. HEENT: Pupils are round and equally reacting to light. EOMI. No scleral icterus. No conjunctival pallor. Normocephalic, atraumatic. No pharyngeal erythema. No thyromegaly. CARDIOVASCULAR: S1 and S2 present. No murmurs, rubs, or gallops. PULMONARY: Chest is clear to auscultation, no wheezing or crackles. -ABDOMEN: Soft, nontender, nondistended, normoactive bowel sounds. No palpable organomegaly. Left lower colostomy and below it there is fullness with redness and some serosanguineous discharge, associated with mild tenderness no rebound tenderness MUSCULOSKELETAL: No joint swelling or deformity. EXTREMITIES: No cyanosis, clubbing, or pedal edema. NEUROLOGICAL: Gross neurological examination did not reveal any focal deficits. SKIN: No rashes. No petechiae - Labs CBC & Chem 7: 12/31/19 08:26 01/01/20 07:38 Labs: Abnormal Lab Results - Last 24 Hours (Table) 12/31/19 12/31/19 12/31/19 Range/Units 11:45 16:39 21:28 Sodium (137-145) mmol/L Creatinine (0.52-1.04) mg/dL Glucose (74-99) mg/dL POC Glucose (mg/dL) 304 H 313 H 243 H (75-99) mg/dL Calcium (8.4-10.2) mg/dL 01/01/20 01/01/20 Range/Units 07:11 07:38 Sodium 135 L (137-145) mmol/L Creatinine 1.34 H (0.52-1.04) mg/dL Glucose 152 H (74-99) mg/dL POC Glucose (mg/dL) 177 H (75-99) mg/dL Calcium 7.5 L (8.4-10.2) mg/dL Assessment and Plan Assessment: Worsening and enlarged abdominal abscesses, 11 x 4.5 x 6.4 cm marga-Ileostomy persistent hernia with possible ileus and/or enteritis Acute kidney injury chronic kidney disease stage IIIB, secondary to diabetic nephropathy Diabetes mellitus with hypoglycemia, POD Chronic atrial fibrillation on Eliquis Chronic systolic nonischemic heart failure Hypertension Hypothyroidism Plan: This is a pleasant 74 years old female who presents with worsening abdominal abscess. Continue with Zosyn. Follow-up ID recommendation. Need for surgical intervention will be addressed by Surgery primary team the patient is going for surgery on 12/29 for I&D. Follow culture results. Continue with insulin sliding scale, continue with antibiotics. Nephrology service on the case Labs and medication were reviewed.. Continue same treatment. Continue with symptomatic treatment. Resume home medication. Monitor lytes and vitals. DVT and GI prophylaxis. Further recommendations of the clinical course of the patient DVT prophylaxis: Eliquis GI Prophylaxis: Pepcid
[2020-01-01] MEDS: APIXABAN 2.5 MG TABLET PO SCH ×2 (10:33→21:09)
--- NOTE | 2020-01-01 11:14 | P.PN ---
Subjective Patient is seen in follow-up for acute kidney injury on chronic kidney disease. Patient baseline creatinine is in the range of 1-1.3. Renal function is at baseline. Oral intake is fair. No vomiting. Good output from ileostomy. Denies pain. Now on a regular diet. Vital signs are stable. General: The patient appeared well nourished and normally developed. HEENT: Head exam is unremarkable. Neck is without jugular venous distension. LUNGS: Lungs are clear to auscultation and percussion. Breath sounds decreased. HEART: Rate and Rhythm are regular. ABDOMEN: Generalized tenderness. Ileostomy noted. EXTREMITITES: No clubbing, cyanosis, or edema. Objective - Vital Signs Vital signs: Vital Signs Temp 98.9 F 01/01/20 07:00 Pulse 64 01/01/20 07:00 Resp 17 01/01/20 07:00 BP 128/73 01/01/20 07:00 Pulse Ox 95 01/01/20 07:00 Intake & Output 12/31/19 01/01/20 01/01/20 18:59 06:59 18:59 Intake Total 1440 Output Total 25 25 Balance -25 1415 Weight 54.431 kg Intake: Intake, IV Titration 1440 Amount Piperacillin-Tazobactam 3 200 .375 gm In Sodium Chloride 0.9% 100 ml @ 25 mls/hr IVPB Q8HR [facility] Rx# :[id number] Sodium Chloride 0.9% 1, 1240 000 ml @ 75 mls/hr IV . [id number] [facility] Rx#:[id number] Output: Stool 25 25 Other: Voiding Method Toilet Toilet Bedside Commode Bedpan # Voids 2 2 - Labs CBC & Chem 7: 12/31/19 08:26 01/01/20 07:38 Labs: Abnormal Lab Results - Last 24 Hours (Table) 12/31/19 12/31/19 12/31/19 Range/Units 11:45 16:39 21:28 Sodium (137-145) mmol/L Creatinine (0.52-1.04) mg/dL Glucose (74-99) mg/dL POC Glucose (mg/dL) 304 H 313 H 243 H (75-99) mg/dL Calcium (8.4-10.2) mg/dL 01/01/20 01/01/20 Range/Units 07:11 07:38 Sodium 135 L (137-145) mmol/L Creatinine 1.34 H (0.52-1.04) mg/dL Glucose 152 H (74-99) mg/dL POC Glucose (mg/dL) 177 H (75-99) mg/dL Calcium 7.5 L (8.4-10.2) mg/dL Assessment and Plan Plan: Assessment: 1. Acute kidney injury mostly prerenal secondary to infection. Creatinine 2.05 on admission and is now back to baseline. Creatinine 1.34 today. No evidence of hydronephrosis noted on kidney ultrasound. 2. Abdominal wall abscess maintained on IV antibiotics. General surgery and infectious disease following. S/p incision and drainage on December 29. 3. Insulin-dependent diabetes mellitus. 4. Chronic A. fib maintained on Coreg and Cardizem. Also on anticoagulation. 5. Chronic kidney disease stage III. Etiology is most likely diabetic kidney disease. Baseline creatinine in the range of 1-1.3. 6. Anemia of chronic kidney disease maintained on Aranesp. 7. Hypomagnesemia from poor oral intake. Improved post replacement. Plan: Hep-Lock IV fluids. Avoid nephrotoxins. Stable to be discharged from nephrology standpoint. Follow up outpatient in 2 weeks.
[2020-01-01 11:50] LABS: Glucose,Whole Blood 261 mg/dL (75-99)
--- NOTE | 2020-01-01 13:48 | P.DS ---
Providers Date of admission: 12/27/19 16:58 Expected date of discharge: 01/01/20 Attending physician: Cedric Quintanilla Consults: 12/27/19 17:00 Consult Physician Routine Consulting Provider: Jamaal Canales Consult Reason/Comments: Anterior abdominal wall abscess Do you want consulting provider notified?: Yes 12/27/19 20:09 Consult Physician Routine Consulting Provider: Yves Hurley Consult Reason/Comments: medical management Do you want consulting provider notified?: Yes 12/28/19 10:08 Consult Physician Urgent Consulting Provider: Jose Miller Consult Reason/Comments: Acute on chronic kidney disease Do you want consulting provider notified?: Yes Primary care physician: Adolfo Wang Hospital Course: 74-year-old female who underwent incision and drainage and debridement of abdominal abscess. patient is doing well postoperatively without any immediate complications. She was evaluated by the wound care nurse practitioner and wound VAC was recommended at the time of discharge. Patient is tolerating diet without nausea or vomiting. Vital signs are stable. She is stable for discharge home today. Please see EMR for further hospital course details. Discharge Diagnosis: 1. Abdominal wall abscess Nurse practitioner note has been reviewed by physician. Signing provider agrees with the documented findings, assessment, and plan of care. Patient Condition at Discharge: Stable Plan - Discharge Summary Discharge Rx Participant: No New Discharge Prescriptions: No Action Multivitamins, Thera [Multivitamin (formulary)] 1 tab PO DAILY@0800 Atorvastatin [Lipitor] 10 mg PO HS@1999 Calcium Carbonate/Vitamin D3 [Calcium 600-Vit D3 400 Tablet] 1 tab PO DAILY@0800 Magnesium Oxide [Mag-Ox] 400 mg PO BID@ Levothyroxine Sodium [Synthroid] 25 mcg PO DAILY@0600 Calcium Acetate [PhosLo] 667 mg PO DAILY@0800 Loratadine 10 mg PO DAILY@0800 Apixaban [Eliquis] 2.5 mg PO BID@ Sodium Chloride Tab 1 gm PO DAILY@0800 Simethicone 40 mg/0.6 ml Drops [Mylicon Drops] 20 mg MISCELLANE DAILY Ondansetron [Zofran ODT] 4 mg PO AC-TID Furosemide [Lasix] 40 mg PO DAILY@0800 Carvedilol [Coreg] 6.25 mg PO AC-BID@799,1999 Bisacodyl [Dulcolax] 10 mg RECTAL DAILY PRN PRN Reason: Constipation Magnesium Hydroxide [Milk of Magnesia Concentrate] 2,400 mg PO DAILY PRN PRN Reason: Constipation INSULIN ASPART (NovoLOG) [NovoLOG (formulary)] 6 unit SQ AC-LUNCH INSULIN ASPART (NovoLOG) [NovoLOG (formulary)] 4 unit SQ AC-SUPPER INSULIN ASPART (NovoLOG) [NovoLOG (formulary)] See Protocol SQ ACHS INSULIN ASPART (NovoLOG) [NovoLOG (formulary)] 5 unit SQ AC-BRKFST Diltiazem HCl 90 mg PO TID traMADol HCL 50 mg PO Q12H PRN PRN Reason: Pain Insulin Glargine,Hum.rec.anlog [Basaglar Kwikpen U-100] 18 unit SQ AC- BRKFST@0800 Acetaminophen [Tylenol Arthritis] 650 mg PO Q6H PRN PRN Reason: Pain Famotidine [Pepcid] 20 mg PO DAILY@08 DAPTOmycin [Cubicin] 350 mg IVPB HS@1999 Discharge Medication List Atorvastatin [Lipitor] 10 mg PO HS@199906/03/18 [History] Calcium Acetate [PhosLo] 667 mg PO DAILY@0806/03/18 [History] Calcium Carbonate/Vitamin D3 [Calcium 600-Vit D3 400 Tablet] 1 tab PO DAILY@0800 06/03/18 [History] Levothyroxine Sodium [Synthroid] 25 mcg PO DAILY@0600 06/03/18 [History] Magnesium Oxide [Mag-Ox] 400 mg PO BID@799,199906/03/18 [History] Multivitamins, Thera [Multivitamin (formulary)] 1 tab PO DAILY@0800 06/03/18 [History] Loratadine 10 mg PO DAILY@0800 03/31/19 [History] Apixaban [Eliquis] 2.5 mg PO BID@799,199905/31/19 [History] Bisacodyl [Dulcolax] 10 mg RECTAL DAILY PRN 11/25/19 [History] Carvedilol [Coreg] 6.25 mg PO AC-BID@799,199911/25/19 [History] Furosemide [Lasix] 40 mg PO DAILY@0800 11/25/19 [History] Magnesium Hydroxide [Milk of Magnesia Concentrate] 2,400 mg PO DAILY PRN 11/25/19 [History] Ondansetron [Zofran ODT] 4 mg PO AC-TID 11/25/19 [History] Simethicone 40 mg/0.6 ml Drops [Mylicon Drops] 20 mg MISCELLANE DAILY 11/25/19 [History] Sodium Chloride Tab 1 gm PO DAILY@0811/25/19 [History] Acetaminophen [Tylenol Arthritis] 650 mg PO Q6H PRN 12/27/19 [History] DAPTOmycin [Cubicin] 350 mg IVPB HS@199912/27/19 [History] Diltiazem HCl 90 mg PO TID 12/27/19 [History] Famotidine [Pepcid] 20 mg PO DAILY@0812/27/19 [History] INSULIN ASPART (NovoLOG) [NovoLOG (formulary)] 4 unit SQ AC-SUPPER 12/27/19 [History] INSULIN ASPART (NovoLOG) [NovoLOG (formulary)] 5 unit SQ AC-BRKFST 12/27/19 [History] INSULIN ASPART (NovoLOG) [NovoLOG (formulary)] 6 unit SQ AC-LUNCH 12/27/19 [History] INSULIN ASPART (NovoLOG) [NovoLOG (formulary)] See Protocol SQ ACHS 12/27/19 [History] Insulin Glargine,Hum.rec.anlog [Basaglar Kwikpen U-100] 18 unit SQ AC- BRKFST@0812/27/19 [History] traMADol HCL 50 mg PO Q12H PRN 12/27/19 [History] Follow up Appointment(s)/Referral(s): Adolfo Wang MD [Primary Care Provider] - 1-2 days [facility] [NON-STAFF] - 1 Week Cedric Quintanilla MD [STAFF PHYSICIAN] - 1 Week
--- NOTE | 2020-01-01 14:14 | PN ---
PROGRESS NOTE DATE OF SERVICE: 01/01/2020 REASON FOR FOLLOWUP: Abdominal wall abscess. INTERVAL HISTORY: The patient is currently afebrile. Patient is breathing comfortably. No chest pain or cough. Abdominal pain is currently controlled. No nausea, vomiting. PHYSICAL EXAMINATION: Blood pressure 128/73 with a pulse of 64. Temperature 97.9. She is 95% on room air. General description is an elderly female up in the chair in no distress. Respiratory system: Unlabored breathing. Clear to auscultation anteriorly. Heart S1, S2. Regular rate and rhythm. ABDOMEN: Soft. Wound is currently packed. Redness has decreased. LABS: Creatinine 1.34. DIAGNOSTIC IMPRESSION AND PLAN: Patient with abdominal wall abscess status post drainage. Culture not done. Overall improvement on current IV antibiotics to finish therapy with short course of oral doxycycline. Local wound care can be switched over to wound VAC. Continue supportive care. MMODL / IJN: [id number] /
[2020-01-01 16:36] LABS: Glucose,Whole Blood 212 mg/dL (75-99)
[2020-01-01 20:31] LABS: Glucose,Whole Blood 183 mg/dL (75-99)
[2020-01-01] MEDS: ATORVASTATIN 10 MG TAB PO SCH (21:09)
[2020-01-02] MEDS: PIPERACILLIN-TAZOBACTAM 3.375 GM in SODIUM CHLORIDE 0.9% 100 ML IVPB SCH ×3 (00:21→17:33)
[2020-01-02] MEDS: LEVOTHYROXINE 25 MCG TAB PO SCH (05:39)
[2020-01-02 07:09] LABS: Glucose,Whole Blood 268 mg/dL (75-99)
[2020-01-02] MEDS: INSULIN ASPART (NovoLOG) 100 UNIT/ML VIAL SQ SCH ×4 (09:14→21:07)
[2020-01-02] MEDS: APIXABAN 2.5 MG TABLET PO SCH ×2 (09:15→21:06)
[2020-01-02] MEDS: CARVEDILOL 3.125 MG TAB PO SCH ×2 (09:15→21:06)
[2020-01-02] MEDS: SIMETHICONE 40 MG/0.6 ML DROPS 2,000 MG/30 ML BOTTLE MISCELLANE SCH (09:15)
[2020-01-02] MEDS: DILTIAZEM ORAL 30 MG TAB PO SCH ×3 (09:15→21:07)
[2020-01-02] MEDS: FAMOTIDINE 20 MG TAB PO SCH (09:15)
[2020-01-02 11:46] LABS: Glucose,Whole Blood 268 mg/dL (75-99)
--- NOTE | 2020-01-02 11:54 | P.PN ---
Subjective This is a pleasant 74 years old male with past medical history of chronic atrial fibrillation on Eliquis, chronic systolic nonischemic heart failure, diabetes mellitus, hypertension, hypothyroidism. Patient presents with abdominal pain and vomiting. Patient was transferred from [facility] for abdominal pain related to her large abdominal abscess, she was transferred to this hospital because her primary surgeon Dr. Arango works here. 11/24-11/30 she was admitted for abdominal wall abscess, secondary to MRSA at that time she was discharged on 10 days of daptomycin At [place] her CT of the abdomen and pelvis without contrast showing mild increase in the size of abscess 11 x 4.5 x 6.4 cm, however there was no IV contrast Vitals stable and patient is afebrile. WBC is 12.3 K, hemoglobin 10.8, platelets normal, INR is normal. BMP is unremarkable except for elevated creatinine of 2.05, with baseline 1.0-1.5, liver enzymes not elevated. Glucose was low yesterday 52-73 In the emergency room patient was started on Zosyn on normal saline at 75 mL per Infectious disease already been consulted Her medication review was on at home she was taken Lantus 18 units every morning and NovoLog with meals as 4, 5, 6 units respectively. 12/29/2019 Patient lying in bed not in distress. She still have some discomfort and her abscess and possible incision and drainage, to be done tomorrow by surgery team.because of this her Eliquis was held and patient was placed on subcu heparin Her blood pressure this morning is 101/63, Coreg dose was lowered to help her blood pressure and renal function. Labs reviewed showing hemoglobin of 9.3. WBC came back to normal at 5.9, platelet also came down. It looks like has hemodilution.creatinine is coming down from 2.0 down to 1.7, renal ultrasound is with no hydronephrosis patient continue on daptomycinZosyn normal saline at 75 mL/h yesterday she needed 10 units of insulin on sliding scale, this morning 6 units. We'll Keep the patient on sliding scale as is going for surgery tomorrow 12/30/2019 patient is awake and alert. No chest pain or dyspnea.vital signs stable and she is saturating 100% on room air WBCs 4.0K, hemoglobin 9.3,creatinine better to 1.38 she hadCT of the abdomen and pelvis with no contrast showing persistent hernia with possible ileus or gastroenteritis Patient remains on normal saline 75 mL/h and nephrology on the case. also she is on daptomycin and Zosyn pending I&D today and follow culture results. ID team on the case 12/31/2019 She is a status post I and D for her abdominal wall abscesses yesterday. Today is postop day #1. She sis seated in her chair and pleasant , she is having her diet with no nausea vomiting vitals are stable, and Improvement with Creatinine down to 1.17. Sugar Controlled She Remains on Zosyn, Daptomycin Continue with normal saline at 75 mL/h as per nephrology 01/01/2020 She is a status post I and D for her abdominal wall abscesses . Today is postop day #1. She is written for wound VAC to be placed. She feels better. She is able to tolerate diet and she is smiling a pleasant with no new complaints. No abdominal pain. Vitals are stable. Creatinine is 1.3 today, which is her baseline, we'll lower the fl. of normal saline to 50 mL per hour. She remains on Zosyn and daptomycin, and we will resume her Eliquis today Patient might benefit from ECF for rehab upon discharge and social media strategist consult, patient agrees 01/02/2020 Patient is clinically stable. She has large wound in her lower abdomen with large wick is in a Place. No other new complaints. She has urine catheter is in place. Hemodynamically stable with no new complaints. Eliquis is restarted Antibiotic was switched to oral upon discharge by ID team Objective - Vital Signs Vital signs: Vital Signs Temp 98 F 01/02/20 07:59 Pulse 66 01/02/20 07:59 Resp 16 01/02/20 07:59 BP 146/70 01/02/20 07:59 Pulse Ox 99 01/02/20 07:59 Intake & Output 01/01/20 01/02/20 01/02/20 18:59 06:59 18:59 Intake Total 300 300 Output Total 175 Balance 300 125 Intake: Intake, IV Titration 300 Amount DAPTOmycin 320 mg In 50 Sodium Chloride 0.9% 50 ml @ 100 mls/hr IVPB Q48H [facility] Rx#:[id number] Piperacillin-Tazobactam 3 100 .375 gm In Sodium Chloride 0.9% 100 ml @ 25 mls/hr IVPB Q8HR [facility] Rx# :[id number] Sodium Chloride 0.9% 1, 150 000 ml @ 50 mls/hr IV . Q20H [facility] Rx#:[id number] Oral 300 Output: Stool 175 Other: Voiding Method Toilet # Voids 1 - Exam GENERAL: The patient is alert and oriented x3, not in any acute distress. Well developed, well nourished. HEENT: Pupils are round and equally reacting to light. EOMI. No scleral icterus. No conjunctival pallor. Normocephalic, atraumatic. No pharyngeal erythema. No thyromegaly. CARDIOVASCULAR: S1 and S2 present. No murmurs, rubs, or gallops. PULMONARY: Chest is clear to auscultation, no wheezing or crackles. -ABDOMEN: Soft, nontender, nondistended, normoactive bowel sounds. No palpable organomegaly. Left lower colostomy and below it there is fullness with redness and some serosanguineous discharge, associated with mild tenderness no rebound tenderness MUSCULOSKELETAL: No joint swelling or deformity. EXTREMITIES: No cyanosis, clubbing, or pedal edema. NEUROLOGICAL: Gross neurological examination did not reveal any focal deficits. SKIN: No rashes. No petechiae - Labs CBC & Chem 7: 12/31/19 08:26 01/01/20 07:38 Labs: Abnormal Lab Results - Last 24 Hours (Table) 01/01/20 01/01/20 01/01/20 Range/Units 11:41 16:34 20:30 POC Glucose (mg/dL) 261 H 212 H 183 H (75-99) mg/dL 01/02/20 Range/Units 07:06 POC Glucose (mg/dL) 268 H (75-99) mg/dL Assessment and Plan Assessment: Worsening and enlarged abdominal abscesses, 11 x 4.5 x 6.4 cm marga-Ileostomy persistent hernia with possible ileus and/or enteritis Acute kidney injury chronic kidney disease stage IIIB, secondary to diabetic nephropathy Diabetes mellitus with hypoglycemia, POD Chronic atrial fibrillation on Eliquis Chronic systolic nonischemic heart failure Hypertension Hypothyroidism Plan: This is a pleasant 74 years old female who presents with worsening abdominal abscess. Continue with Zosyn. Follow-up ID recommendation. Need for surgical intervention will be addressed by Surgery primary team the patient is going for surgery on 12/29 for I&D. Follow culture results. Continue with insulin sliding scale, continue with antibiotics. Nephrology service on the case Labs and medication were reviewed.. Continue same treatment. Continue with symptomatic treatment. Resume home medication. Monitor lytes and vitals. DVT and GI prophylaxis. Further recommendations of the clinical course of the patient DVT prophylaxis: Eliquis GI Prophylaxis: Pepcid
--- NOTE | 2020-01-02 12:35 | P.PN ---
Subjective Progress Note Date: 01/02/20 CHIEF COMPLAINT: Complicated abdominal wound HISTORY OF PRESENT ILLNESS: The patient is a 74-year-old female status post debridement of complicated abdominal wound, 12/30/19. She is postop day 3. She is tolerating diet. No reports of abdominal pain. Her main complaint includes trouble with urination. ROS: No reports of nausea and vomiting. Has bowel movements through ostomy. No fevers or chills. No new chest pain. PHYSICAL EXAM: VITAL SIGNS: Reviewed CONSTITUTIONAL: Well developed and in no acute distress. EYES: Conjuctivae without sclera icterus. Extraocular movements grossly intact. HEAD, EARS, NOSE, THROAT: Moist buccal mucosa. Head is atraumatic, normocephalic. Hears conversational speech. No nasal drainage. NECK: Supple. No thyroidomegaly. RESPIRATORY: Non-labored respirations and equal bilateral excursions. CARDIOVASCULAR: Palpable 2+ radial pulses. ABDOMEN: Lower midline complicated open wound with dressing and packing intact. Left lower quadrant ostomy pink patent with semisolid stool. Stoma functioning. MUSCULOSKELETAL: No gross deformity of the lower extremities noted. No clubbing. No cyanosis. SKIN: Good skin turgor. Well perfused. NEUROLOGIC: Cranial nerves II through XII grossly intact. No focal or lateralizing signs. PSYCH: Appropriate affect. Alert and oriented to person, place and time. CLINICAL LABS: No new labs ASSESSMENT: 1. Abdominal wall abscess 2. Complicated anterior abdominal wall wound PLAN: 1. Agree with wound vac placement 2. Pending placement for rehab Objective - Vital Signs Vital signs: Vital Signs Temp 98 F 01/02/20 07:59 Pulse 66 01/02/20 07:59 Resp 16 01/02/20 07:59 BP 146/70 01/02/20 07:59 Pulse Ox 99 01/02/20 07:59 Intake & Output 01/01/20 01/02/20 01/02/20 18:59 06:59 18:59 Intake Total 300 300 100 Output Total 175 Balance 300 125 100 Intake: Intake, IV Titration 300 100 Amount DAPTOmycin 320 mg In 50 Sodium Chloride 0.9% 50 ml @ 100 mls/hr IVPB Q48H [facility] Rx#:[id number] Piperacillin-Tazobactam 3 100 100 .375 gm In Sodium Chloride 0.9% 100 ml @ 25 mls/hr IVPB Q8HR [facility] Rx# :[id number] Sodium Chloride 0.9% 1, 150 000 ml @ 50 mls/hr IV . Q20H [facility] Rx#:[id number] Oral 300 Output: Stool 175 Other: Voiding Method Toilet # Voids 1 - Labs CBC & Chem 7: 12/31/19 08:26 01/01/20 07:38 Labs: Abnormal Lab Results - Last 24 Hours (Table) 01/01/20 01/01/20 01/02/20 Range/Units 16:34 20:30 07:06 POC Glucose (mg/dL) 212 H 183 H 268 H (75-99) mg/dL 01/02/20 Range/Units 11:42 POC Glucose (mg/dL) 268 H (75-99) mg/dL Assessment and Plan (1) Open wound anterior abdominal wall Current Visit: Yes Status: Acute Code(s): S31.109A - UNSP OPN WND ABD WALL, UNSP Q W/O PENET PERIT CAV, INIT SNOMED Code(s): 317660980 (2) Abdominal wall abscess Current Visit: Yes Status: Acute Code(s): L02.211 - CUTANEOUS ABSCESS OF ABDOMINAL WALL SNOMED Code(s): 65685110 (3) Parastomal hernia Current Visit: No Status: Acute Code(s): K43.5 - PARASTOMAL HERNIA WITHOUT OBSTRUCTION OR GANGRENE SNOMED Code(s): 641014283
[2020-01-02] MEDS ORDERED: SODIUM CHLORIDE 0.9% IVPB SCH (15:00)
[2020-01-02] MEDS ORDERED: DAPTOMYCIN IVPB SCH (15:00)
[2020-01-02 17:13] LABS: Glucose,Whole Blood 281 mg/dL (75-99)
--- NOTE | 2020-01-02 17:22 | PN ---
PROGRESS NOTE The patient is seen for followup for acute kidney injury. Her creatinine has improved from 2.0 on initial admission to 1.3. However, yesterday it was down to 1.17. Currently patient is maintained on antibiotics in the form of daptomycin and Zosyn for abdominal abscess. She did grow MRSA from the wound last month. PHYSICAL EXAMINATION: Today, patient is sitting up in a bedside chair. She is comfortable. Blood pressure is 146/70, heart rate 54 per minute, she is afebrile. Examination of the heart S1, S2. Examination on lungs, decreased breath sounds at bases. Abdomen is soft, nontender. Examination of lower extremities shows no significant edema. ASPARAGUS BUNCHER exam grossly intact. LABS: Show sodium 135, potassium 3.6, chloride 107, CO2 is 23. BUN 14, creatinine 1.34. ASSESSMENT: 1. Acute kidney injury, mostly prerenal and associated with underlying infection, currently improved. No evidence of obstruction. 2. Abdominal wall abscess, maintained on IV antibiotics. 3. Chronic kidney disease stage 3 secondary to diabetic kidney disease. Previous creatinine 1-1.3. 4. Anemia of chronic disease, maintained on Aranesp. 5. Type 2 diabetes. 6. Hypomagnesemia, status post replacement associated with decreased oral intake. PLAN: Patient is stable for discharge from nephrology standpoint. Repeat labs as outpatient. Monitor renal function. Avoid nephrotoxic agents. MMODL / IJN: [id number] /
[2020-01-02 20:08] LABS: Glucose,Whole Blood 257 mg/dL (75-99)
[2020-01-02] MEDS: ATORVASTATIN 10 MG TAB PO SCH (21:07)
--- NOTE | 2020-01-02 21:12 | PN ---
PROGRESS NOTE DATE OF SERVICE: 01/02/2020 REASON FOR FOLLOWUP: Abdominal wall abscess. INTERVAL HISTORY: The patient is currently afebrile. The patient is breathing comfortably. Denies any chest pain or shortness of breath, cough. Abdominal pain is currently controlled. No nausea or vomiting. PHYSICAL EXAMINATION: Blood pressure is 176/91 with a pulse of 71, temperature of 98. She is 100% on room air. GENERAL DESCRIPTION: The patient is an elderly female lying in bed in no distress. RESPIRATORY system: Unlabored breathing, clear to auscultation anteriorly. HEART S1, S2. Regular rate and rhythm. ABDOMEN: Soft. No tenderness. Abdominal wound base looks clean. LABS: No new labs have been obtained today. DIAGNOSTIC IMPRESSION AND PLAN: Patient with abdominal abscess status post surgical drainage. Overall clinically improving. Local wound care with wound VAC. Antibiotic Zosyn and switching to oral antibiotic on discharge. Continue supportive care. MMODL / IJN: [id number] /
[2020-01-03] MEDS: PIPERACILLIN-TAZOBACTAM 3.375 GM in SODIUM CHLORIDE 0.9% 100 ML IVPB SCH ×3 (00:53→17:26)
[2020-01-03] MEDS: LEVOTHYROXINE 25 MCG TAB PO SCH (06:08)
[2020-01-03 07:10] LABS: Glucose,Whole Blood 288 mg/dL (75-99)
[2020-01-03] MEDS: INSULIN ASPART (NovoLOG) 100 UNIT/ML VIAL SQ SCH ×6 (08:21→21:30)
[2020-01-03] MEDS: SIMETHICONE 40 MG/0.6 ML DROPS 2,000 MG/30 ML BOTTLE MISCELLANE SCH (08:22)
[2020-01-03] MEDS: FAMOTIDINE 20 MG TAB PO SCH (08:22)
[2020-01-03] MEDS: CARVEDILOL 3.125 MG TAB PO SCH ×2 (08:22→21:30)
[2020-01-03] MEDS: DILTIAZEM ORAL 30 MG TAB PO SCH ×3 (08:22→22:35)
[2020-01-03] MEDS: APIXABAN 2.5 MG TABLET PO SCH ×2 (08:22→21:30)
--- NOTE | 2020-01-03 10:40 | P.PN ---
Subjective This is a pleasant 74 years old male with past medical history of chronic atrial fibrillation on Eliquis, chronic systolic nonischemic heart failure, diabetes mellitus, hypertension, hypothyroidism. Patient presents with abdominal pain and vomiting. Patient was transferred from [facility] for abdominal pain related to her large abdominal abscess, she was transferred to this hospital because her primary surgeon Dr. Arango works here. 11/24-11/30 she was admitted for abdominal wall abscess, secondary to MRSA at that time she was discharged on 10 days of daptomycin At [place] her CT of the abdomen and pelvis without contrast showing mild increase in the size of abscess 11 x 4.5 x 6.4 cm, however there was no IV contrast Vitals stable and patient is afebrile. WBC is 12.3 K, hemoglobin 10.8, platelets normal, INR is normal. BMP is unremarkable except for elevated creatinine of 2.05, with baseline 1.0-1.5, liver enzymes not elevated. Glucose was low yesterday 52-73 In the emergency room patient was started on Zosyn on normal saline at 75 mL per Infectious disease already been consulted Her medication review was on at home she was taken Lantus 18 units every morning and NovoLog with meals as 4, 5, 6 units respectively. 12/29/2019 Patient lying in bed not in distress. She still have some discomfort and her abscess and possible incision and drainage, to be done tomorrow by surgery team.because of this her Eliquis was held and patient was placed on subcu heparin Her blood pressure this morning is 101/63, Coreg dose was lowered to help her blood pressure and renal function. Labs reviewed showing hemoglobin of 9.3. WBC came back to normal at 5.9, platelet also came down. It looks like has hemodilution.creatinine is coming down from 2.0 down to 1.7, renal ultrasound is with no hydronephrosis patient continue on daptomycinZosyn normal saline at 75 mL/h yesterday she needed 10 units of insulin on sliding scale, this morning 6 units. We'll Keep the patient on sliding scale as is going for surgery tomorrow 12/30/2019 patient is awake and alert. No chest pain or dyspnea.vital signs stable and she is saturating 100% on room air WBCs 4.0K, hemoglobin 9.3,creatinine better to 1.38 she hadCT of the abdomen and pelvis with no contrast showing persistent hernia with possible ileus or gastroenteritis Patient remains on normal saline 75 mL/h and nephrology on the case. also she is on daptomycin and Zosyn pending I&D today and follow culture results. ID team on the case 12/31/2019 She is a status post I and D for her abdominal wall abscesses yesterday. Today is postop day #1. She sis seated in her chair and pleasant , she is having her diet with no nausea vomiting vitals are stable, and Improvement with Creatinine down to 1.17. Sugar Controlled She Remains on Zosyn, Daptomycin Continue with normal saline at 75 mL/h as per nephrology 01/01/2020 She is a status post I and D for her abdominal wall abscesses . Today is postop day #1. She is written for wound VAC to be placed. She feels better. She is able to tolerate diet and she is smiling a pleasant with no new complaints. No abdominal pain. Vitals are stable. Creatinine is 1.3 today, which is her baseline, we'll lower the fl. of normal saline to 50 mL per hour. She remains on Zosyn and daptomycin, and we will resume her Eliquis today Patient might benefit from ECF for rehab upon discharge and social media developer consult, patient agrees 01/02/2020 Patient is clinically stable. She has large wound in her lower abdomen with large wick is in a Place. No other new complaints. She has urine catheter is in place. Hemodynamically stable with no new complaints. Eliquis is restarted Antibiotic was switched to oral upon discharge by ID team 01/03/2020 no new complaints, patient is awake and comfortable. Hemodynamically stable. Sugar is elevated undergoing to start her insulin, she was taken Lantus 18 units before breakfast and 4-6 units with meals. We going to restart Levemir 15 units daily at 5 units of NovoLog with meals. Continue with insulin sliding scale and monitor glucose Objective - Vital Signs Vital signs: Vital Signs Temp 98.3 F 01/03/20 07:00 Pulse 67 01/03/20 07:00 Resp 16 01/03/20 07:00 BP 150/69 01/03/20 07:00 Pulse Ox 98 01/03/20 07:00 Intake & Output 01/02/20 01/03/20 01/03/20 18:59 06:59 18:59 Intake Total 150 Balance 150 Intake: Intake, IV Titration 150 Amount DAPTOmycin 320 mg In 50 Sodium Chloride 0.9% 50 ml @ 100 mls/hr IVPB Q48H ISABEL Rx#:[id number] Piperacillin-Tazobactam 3 100 .375 gm In Sodium Chloride 0.9% 100 ml @ 25 mls/hr IVPB Q8HR ISABEL Rx# :[id number] Other: Voiding Method Toilet # Voids 2 2 # Bowel Movements 3 - Exam GENERAL: The patient is alert and oriented x3, not in any acute distress. Well developed, well nourished. HEENT: Pupils are round and equally reacting to light. EOMI. No scleral icterus. No conjunctival pallor. Normocephalic, atraumatic. No pharyngeal erythema. No thyromegaly. CARDIOVASCULAR: S1 and S2 present. No murmurs, rubs, or gallops. PULMONARY: Chest is clear to auscultation, no wheezing or crackles. -ABDOMEN: Soft, nontender, nondistended, normoactive bowel sounds. No palpable organomegaly. Left lower colostomy and below it there is fullness with redness and some serosanguineous discharge, associated with mild tenderness no rebound tenderness MUSCULOSKELETAL: No joint swelling or deformity. EXTREMITIES: No cyanosis, clubbing, or pedal edema. NEUROLOGICAL: Gross neurological examination did not reveal any focal deficits. SKIN: No rashes. No petechiae - Labs CBC & Chem 7: 12/31/19 08:26 01/01/20 07:38 Labs: Abnormal Lab Results - Last 24 Hours (Table) 01/02/20 01/02/20 01/02/20 Range/Units 11:42 17:11 20:06 POC Glucose (mg/dL) 268 H 281 H 257 H (75-99) mg/dL 01/03/20 Range/Units 07:03 POC Glucose (mg/dL) 288 H (75-99) mg/dL Assessment and Plan Assessment: Worsening and enlarged abdominal abscesses, 11 x 4.5 x 6.4 cm marga-Ileostomy persistent hernia with possible ileus and/or enteritis Acute kidney injury chronic kidney disease stage IIIB, secondary to diabetic nephropathy Diabetes mellitus with hypoglycemia, POD Chronic atrial fibrillation on Eliquis Chronic systolic nonischemic heart failure Hypertension Hypothyroidism Plan: This is a pleasant 74 years old female who presents with worsening abdominal abscess. Continue with Zosyn. Follow-up ID recommendation. Need for surgical intervention will be addressed by Surgery primary team the patient is going for surgery on 12/29 for I&D. Follow culture results. Continue with insulin sliding scale, continue with antibiotics. Nephrology service on the case Labs and medication were reviewed.. Continue same treatment. Continue with sy mptomatic treatment. Resume home medication. Monitor lytes and vitals. DVT and GI prophylaxis. Further recommendations of the clinical course of the patient DVT prophylaxis: Eliquis GI Prophylaxis: Pepcid
[2020-01-03 11:35] LABS: Glucose,Whole Blood 331 mg/dL (75-99)
--- NOTE | 2020-01-03 11:48 | P.PN ---
Subjective Progress Note Date: 01/03/20 CHIEF COMPLAINT: Complicated abdominal wound HISTORY OF PRESENT ILLNESS: The patient is a 74-year-old female status post debridement of complicated abdominal wound, 12/30/19. She is postop day 4. No new complaints. She is sitting up in the chair. No abdominal pain. She is tolerating diet. ROS: No reports of nausea and vomiting. Has bowel movements through ostomy. No fevers or chills. No new chest pain. PHYSICAL EXAM: VITAL SIGNS: Reviewed CONSTITUTIONAL: Well developed and in no acute distress. EYES: Conjuctivae without sclera icterus. Extraocular movements grossly intact. HEAD, EARS, NOSE, THROAT: Moist buccal mucosa. Head is atraumatic, normocephalic. Hears conversational speech. No nasal drainage. NECK: Supple. No thyroidomegaly. RESPIRATORY: Non-labored respirations and equal bilateral excursions. CARDIOVASCULAR: Palpable 2+ radial pulses. ABDOMEN: Wound vac present. Left lower quadrant ostomy pink patent with semisolid stool. MUSCULOSKELETAL: No gross deformity of the lower extremities noted. No clubbing. No cyanosis. SKIN: Good skin turgor. Well perfused. NEUROLOGIC: Cranial nerves II through XII grossly intact. No focal or lateralizing signs. PSYCH: Appropriate affect. Alert and oriented to person, place and time. CLINICAL LABS: No new labs. Last Hgb 11.3 on 12/29 ASSESSMENT: 1. Abdominal wall abscess 2. Complicated anterior abdominal wall wound PLAN: 1. Wound vac management at rehab 2. Repeat CBC for history of anemia Objective - Vital Signs Vital signs: Vital Signs Temp 98.3 F 01/03/20 07:00 Pulse 67 01/03/20 07:00 Resp 16 01/03/20 07:00 BP 150/69 01/03/20 07:00 Pulse Ox 98 01/03/20 07:00 Intake & Output 01/02/20 01/03/20 01/03/20 18:59 06:59 18:59 Intake Total 150 Balance 150 Intake: Intake, IV Titration 150 Amount DAPTOmycin 320 mg In 50 Sodium Chloride 0.9% 50 ml @ 100 mls/hr IVPB Q48H ISABEL Rx#:[id number] Piperacillin-Tazobactam 3 100 .375 gm In Sodium Chloride 0.9% 100 ml @ 25 mls/hr IVPB Q8HR ISABEL Rx# :[id number] Other: Voiding Method Toilet # Voids 2 2 # Bowel Movements 3 - Labs CBC & Chem 7: 12/31/19 08:26 01/01/20 07:38 Labs: Abnormal Lab Results - Last 24 Hours (Table) 01/02/20 01/02/20 01/02/20 Range/Units 11:42 17:11 20:06 POC Glucose (mg/dL) 268 H 281 H 257 H (75-99) mg/dL 01/03/20 01/03/20 Range/Units 07:03 11:33 POC Glucose (mg/dL) 288 H 331 H (75-99) mg/dL Assessment and Plan (1) Open wound anterior abdominal wall Current Visit: Yes Status: Acute Code(s): S31.109A - UNSP OPN WND ABD WALL, UNSP Q W/O PENET PERIT CAV, INIT SNOMED Code(s): 175084743 (2) Abdominal wall abscess Current Visit: Yes Status: Acute Code(s): L02.211 - CUTANEOUS ABSCESS OF ABDOMINAL WALL SNOMED Code(s): 71620379 (3) Parastomal hernia Current Visit: No Status: Acute Code(s): K43.5 - PARASTOMAL HERNIA WITHOUT OBSTRUCTION OR GANGRENE SNOMED Code(s): 287745727
[2020-01-03 12:25] LABS: Basophils % (A) 0 %; Eosinophils # (A) 0.5 k/uL (0-0.7); Eosinophils % (A) 6 %; HCT 32.6 % (34.0-46.0); Hypochromasia Marked; Lymphocytes # (A) 0.8 k/uL (1.0-4.8); Lymphocytes % (A) 10 %; MCH 30.1 pg (25.0-35.0); MCHC 30.7 g/dL (31.0-37.0); MCV 98.1 fL (80.0-100.0); Mean Platelet Volume 7.6; Monocytes # (A) 0.5 k/uL (0-1.0); Monocytes % (A) 5 %; Neutrophils # (A) 6.5 k/uL (1.3-7.7); Neutrophils % (A) 77 %; Platelet Count 311 k/uL (150-450); RBC 3.32 m/uL (3.80-5.40); RDW 15.5 % (11.5-15.5); WBC 8.4 k/uL (3.8-10.6)
[2020-01-03] MEDS: INSULIN DETEMIR (LEVEMIR) 100 UNIT/ML SYR SQ SCH (12:52)
--- NOTE | 2020-01-03 16:05 | PN ---
PROGRESS NOTE Patient is seen for followup for acute kidney injury. Her renal function has improved. Creatinine is down to 1.3 on December 31 and do not have any recent labs. The patient is sitting up in a bedside chair. She is comfortable denies any significant complaints. She has good urine output. On examination blood pressure is 150/69, heart rate 67 per minute, she is afebrile. There is trace edema noted bilateral lower extremities. 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 LABS: Hemoglobin 10.0, white cell count 8.4. No recent BMP noted. ASSESSMENT: 1. Acute kidney injury, currently improved. Check labs tomorrow. No nephrotoxic agents on board. 2. Abdominal wall abscess, maintained on IV antibiotics. 3. Chronic kidney disease stage 3 secondary to diabetic kidney disease. Previous creatinine 1-1.3. 4. Hypomagnesemia, status post replacement. 5. Type 2 diabetes. PLAN: Check labs. Okay for discharge from nephrology standpoint if cleared by surgery. MMODL / IJN: [id number] /
[2020-01-03 16:33] LABS: Calcium 8.3 mg/dL (8.4-10.2); Potassium 4.6 mmol/L (3.5-5.1)
[2020-01-03 17:24] LABS: Glucose,Whole Blood 195 mg/dL (75-99)
[2020-01-03 20:16] LABS: Glucose,Whole Blood 194 mg/dL (75-99)
[2020-01-03] MEDS: ATORVASTATIN 10 MG TAB PO SCH (21:30)
[2020-01-04] MEDS: PIPERACILLIN-TAZOBACTAM 3.375 GM in SODIUM CHLORIDE 0.9% 100 ML IVPB SCH ×2 (00:40→08:02)
--- NOTE | 2020-01-04 02:33 | PN ---
PROGRESS NOTE DATE OF SERVICE: 01/03/2020 REASON FOR FOLLOWUP: Abdominal wall abscess. INTERVAL HISTORY: The patient is currently afebrile. The patient denies having any chest pain or shortness of breath or cough. No nausea or vomiting. No abdominal pain. No diarrhea. PHYSICAL EXAMINATION: Blood pressure 146/8w with a pulse of 80, temperature 98.3. She is 100% on room air. General description is an elderly female lying in bed in no distress. RESPIRATORY SYSTEM: Unlabored breathing, clear to auscultation anteriorly. HEART: S1, S2. Regular rate and rhythm. ABDOMEN: Soft. Abdominal wound is currently covered with a wound VAC. LABS: Hemoglobin is 10, white count 8.4, BUN of 24, creatinine is 1.14. DIAGNOSTIC IMPRESSION AND PLAN: Patient with abdominal wall abscess, status post surgical drainage. Abdominal wound currently looks clean. Local care to continue with wound VAC. Antibiotic will be switched to oral doxycycline 100 mg twice a day for about 10 days on discharge and a close outpatient followup. MMODL / IJN: [id number] /
[2020-01-04] MEDS: LEVOTHYROXINE 25 MCG TAB PO SCH (05:47)
[2020-01-04 07:08] LABS: Glucose,Whole Blood 182 mg/dL (75-99)
[2020-01-04] MEDS: FAMOTIDINE 20 MG TAB PO SCH (08:01)
[2020-01-04] MEDS: DILTIAZEM ORAL 30 MG TAB PO SCH (08:01)
[2020-01-04] MEDS: CARVEDILOL 3.125 MG TAB PO SCH (08:01)
[2020-01-04] MEDS: INSULIN DETEMIR (LEVEMIR) 100 UNIT/ML SYR SQ SCH (08:02)
[2020-01-04] MEDS: APIXABAN 2.5 MG TABLET PO SCH (08:02)
[2020-01-04] MEDS: INSULIN ASPART (NovoLOG) 100 UNIT/ML VIAL SQ SCH ×4 (08:03→12:49)
[2020-01-04] MEDS: SIMETHICONE 40 MG/0.6 ML DROPS 2,000 MG/30 ML BOTTLE MISCELLANE SCH (08:04)
[2020-01-04 08:14] VITALS: RESP 16
--- NOTE | 2020-01-04 11:34 | P.DS ---
Providers Date of admission: 12/27/19 16:58 Expected date of discharge: 01/04/20 Attending physician: Cedric Quintanilla Consults: 12/27/19 17:00 Consult Physician Routine Consulting Provider: Jamaal Canales Consult Reason/Comments: Anterior abdominal wall abscess Do you want consulting provider notified?: Yes 12/27/19 20:09 Consult Physician Routine Consulting Provider: Yves Hurley Consult Reason/Comments: medical management Do you want consulting provider notified?: Yes 12/28/19 10:08 Consult Physician Urgent Consulting Provider: Jose Miller Consult Reason/Comments: Acute on chronic kidney disease Do you want consulting provider notified?: Yes Primary care physician: Adolfo Wang Hospital Course: 74-year-old female who underwent incision and drainage and debridement of abdominal abscess. patient is doing well postoperatively without any immediate complications. She was evaluated by the wound care nurse practitioner and wound VAC was recommended at the time of discharge. Patient is tolerating diet without nausea or vomiting. Vital signs are stable. She is stable for discharge home today. Please see EMR for further hospital course details. Discharge Diagnosis: 1. Abdominal wall abscess Nurse practitioner note has been reviewed by physician. Signing provider agrees with the documented findings, assessment, and plan of care. Patient Condition at Discharge: Stable Plan - Discharge Summary Discharge Rx Participant: No New Discharge Prescriptions: New Doxycycline [Vibramycin] 100 mg PO BID 7 Days #14 capsule Discontinued DAPTOmycin [Cubicin] 350 mg IVPB HS@2000 No Action Multivitamins, Thera [Multivitamin (formulary)] 1 tab PO DAILY@0800 Atorvastatin [Lipitor] 10 mg PO HS@2000 Calcium Carbonate/Vitamin D3 [Calcium 600-Vit D3 400 Tablet] 1 tab PO DAILY@0800 Magnesium Oxide [Mag-Ox] 400 mg PO BID@0800,1999 Levothyroxine Sodium [Synthroid] 25 mcg PO DAILY@0600 Calcium Acetate [PhosLo] 667 mg PO DAILY@0800 Loratadine 10 mg PO DAILY@0800 Apixaban [Eliquis] 2.5 mg PO BID@0800,1999 Sodium Chloride Tab 1 gm PO DAILY@0800 Simethicone 40 mg/0.6 ml Drops [Mylicon Drops] 20 mg MISCELLANE DAILY Ondansetron [Zofran ODT] 4 mg PO AC-TID Furosemide [Lasix] 40 mg PO DAILY@0800 Carvedilol [Coreg] 6.25 mg PO AC-BID@799,1999 Bisacodyl [Dulcolax] 10 mg RECTAL DAILY PRN PRN Reason: Constipation Magnesium Hydroxide [Milk of Magnesia Concentrate] 2,400 mg PO DAILY PRN PRN Reason: Constipation INSULIN ASPART (NovoLOG) [NovoLOG (formulary)] 6 unit SQ AC-LUNCH INSULIN ASPART (NovoLOG) [NovoLOG (formulary)] 4 unit SQ AC-SUPPER INSULIN ASPART (NovoLOG) [NovoLOG (formulary)] See Protocol SQ ACHS INSULIN ASPART (NovoLOG) [NovoLOG (formulary)] 5 unit SQ AC-BRKFST Diltiazem HCl 90 mg PO TID traMADol HCL 50 mg PO Q12H PRN PRN Reason: Pain Insulin Glargine,Hum.rec.anlog [Basaglar Kwikpen U-100] 18 unit SQ AC- BRKFST@0800 Acetaminophen [Tylenol Arthritis] 650 mg PO Q6H PRN PRN Reason: Pain Famotidine [Pepcid] 20 mg PO DAILY@0800 Discharge Medication List Atorvastatin [Lipitor] 10 mg PO HS@199906/03/18 [History] Calcium Acetate [PhosLo] 667 mg PO DAILY@0806/03/18 [History] Calcium Carbonate/Vitamin D3 [Calcium 600-Vit D3 400 Tablet] 1 tab PO DAILY@0800 06/03/18 [History] Levothyroxine Sodium [Synthroid] 25 mcg PO DAILY@0600 06/03/18 [History] Magnesium Oxide [Mag-Ox] 400 mg PO BID@799,199906/03/18 [History] Multivitamins, Thera [Multivitamin (formulary)] 1 tab PO DAILY@0800 06/03/18 [History] Loratadine 10 mg PO DAILY@0800 03/31/19 [History] Apixaban [Eliquis] 2.5 mg PO BID@799,199905/31/19 [History] Bisacodyl [Dulcolax] 10 mg RECTAL DAILY PRN 11/25/19 [History] Carvedilol [Coreg] 6.25 mg PO AC-BID@799,199911/25/19 [History] Furosemide [Lasix] 40 mg PO DAILY@0800 11/25/19 [History] Magnesium Hydroxide [Milk of Magnesia Concentrate] 2,400 mg PO DAILY PRN 11/25/19 [History] Ondansetron [Zofran ODT] 4 mg PO AC-TID 11/25/19 [History] Simethicone 40 mg/0.6 ml Drops [Mylicon Drops] 20 mg MISCELLANE DAILY 11/25/19 [History] Sodium Chloride Tab 1 gm PO DAILY@0811/25/19 [History] Acetaminophen [Tylenol Arthritis] 650 mg PO Q6H PRN 12/27/19 [History] Diltiazem HCl 90 mg PO TID 12/27/19 [History] Famotidine [Pepcid] 20 mg PO DAILY@0812/27/19 [History] INSULIN ASPART (NovoLOG) [NovoLOG (formulary)] 4 unit SQ AC-SUPPER 12/27/19 [History] INSULIN ASPART (NovoLOG) [NovoLOG (formulary)] 5 unit SQ AC-BRKFST 12/27/19 [History] INSULIN ASPART (NovoLOG) [NovoLOG (formulary)] 6 unit SQ AC-LUNCH 12/27/19 [History] INSULIN ASPART (NovoLOG) [NovoLOG (formulary)] See Protocol SQ ACHS 12/27/19 [History] Insulin Glargine,Hum.rec.anlog [Basaglar Kwikpen U-100] 18 unit SQ AC- BRKFST@79912/27/19 [History] traMADol HCL 50 mg PO Q12H PRN 12/27/19 [History] Doxycycline [Vibramycin] 100 mg PO BID 7 Days #14 capsule 01/01/20 [Rx] Follow up Appointment(s)/Referral(s): Adolfo Wang MD [Primary Care Provider] - 1-2 days [facility] [NON-STAFF] - 1 Week Jose Miller DO [STAFF PHYSICIAN] - 2 Weeks Cedric Quintanilla MD [STAFF PHYSICIAN] - As Needed Activity/Diet/Wound Care/Special Instructions: Apply wound vac post discharge per wound care KITCHEN BATH DESIGNER instructions
[2020-01-04 11:52] LABS: Glucose,Whole Blood 363 mg/dL (75-99)
[2020-01-04 14:21] VITALS: BP 159/68; PULSE 49; TEMP 98.7
--- NOTE | 2020-01-04 14:54 | P.PN ---
Subjective This is a pleasant 74 years old male with past medical history of chronic atrial fibrillation on Eliquis, chronic systolic nonischemic heart failure, diabetes mellitus, hypertension, hypothyroidism. Patient presents with abdominal pain and vomiting. Patient was transferred from [facility] for abdominal pain related to her large abdominal abscess, she was transferred to this hospital because her primary surgeon Dr. Arango works here. 11/24-11/30 she was admitted for abdominal wall abscess, secondary to MRSA at that time she was discharged on 10 days of daptomycin At [place] her CT of the abdomen and pelvis without contrast showing mild increase in the size of abscess 11 x 4.5 x 6.4 cm, however there was no IV contrast Vitals stable and patient is afebrile. WBC is 12.3 K, hemoglobin 10.8, platelets normal, INR is normal. BMP is unremarkable except for elevated creatinine of 2.05, with baseline 1.0-1.5, liver enzymes not elevated. Glucose was low yesterday 52-73 In the emergency room patient was started on Zosyn on normal saline at 75 mL per Infectious disease already been consulted Her medication review was on at home she was taken Lantus 18 units every morning and NovoLog with meals as 4, 5, 6 units respectively. 12/29/2019 Patient lying in bed not in distress. She still have some discomfort and her abscess and possible incision and drainage, to be done tomorrow by surgery team.because of this her Eliquis was held and patient was placed on subcu heparin Her blood pressure this morning is 101/63, Coreg dose was lowered to help her blood pressure and renal function. Labs reviewed showing hemoglobin of 9.3. WBC came back to normal at 5.9, platelet also came down. It looks like has hemodilution.creatinine is coming down from 2.0 down to 1.7, renal ultrasound is with no hydronephrosis patient continue on daptomycinZosyn normal saline at 75 mL/h yesterday she needed 10 units of insulin on sliding scale, this morning 6 units. We'll Keep the patient on sliding scale as is going for surgery tomorrow 12/30/2019 patient is awake and alert. No chest pain or dyspnea.vital signs stable and she is saturating 100% on room air WBCs 4.0K, hemoglobin 9.3,creatinine better to 1.38 she hadCT of the abdomen and pelvis with no contrast showing persistent hernia with possible ileus or gastroenteritis Patient remains on normal saline 75 mL/h and nephrology on the case. also she is on daptomycin and Zosyn pending I&D today and follow culture results. ID team on the case 12/31/2019 She is a status post I and D for her abdominal wall abscesses yesterday. Today is postop day #1. She sis seated in her chair and pleasant , she is having her diet with no nausea vomiting vitals are stable, and Improvement with Creatinine down to 1.17. Sugar Controlled She Remains on Zosyn, Daptomycin Continue with normal saline at 75 mL/h as per nephrology 01/01/2020 She is a status post I and D for her abdominal wall abscesses . Today is postop day #1. She is written for wound VAC to be placed. She feels better. She is able to tolerate diet and she is smiling a pleasant with no new complaints. No abdominal pain. Vitals are stable. Creatinine is 1.3 today, which is her baseline, we'll lower the fl. of normal saline to 50 mL per hour. She remains on Zosyn and daptomycin, and we will resume her Eliquis today Patient might benefit from ECF for rehab upon discharge and social research assistant consult, patient agrees 01/02/2020 Patient is clinically stable. She has large wound in her lower abdomen with large wick is in a Place. No other new complaints. She has urine catheter is in place. Hemodynamically stable with no new complaints. Eliquis is restarted Antibiotic was switched to oral upon discharge by ID team 01/03/2020 no new complaints, patient is awake and comfortable. Hemodynamically stable. Sugar is elevated undergoing to start her insulin, she was taken Lantus 18 units before breakfast and 4-6 units with meals. We going to restart Levemir 15 units daily at 5 units of NovoLog with meals. Continue with insulin sliding scale and monitor glucose 01/04/2020 Patient is doing well, her pain controlled, no nausea vomiting. Denies chest pain or dyspnea. She is hemodynamically stable Sugar is better controlled after starting her back on insulin. Labs reviewed Patient is medically clear for discharge once she got cleared by all consultants with recommendation for outpatient follow-up with her primary care doctor in [address]tan espinoza Medication was reconciled Objective - Vital Signs Vital signs: Vital Signs Temp 98.7 F 01/04/20 14:20 Pulse 49 L 01/04/20 14:20 Resp 16 01/04/20 14:20 BP 159/68 01/04/20 14:20 Pulse Ox 100 01/04/20 14:20 Intake & Output 01/03/20 01/04/20 01/04/20 18:59 06:59 18:59 Intake Total 100 760 Output Total 375 150 Balance 100 -375 610 Intake: Intake, IV Titration 100 Amount Piperacillin-Tazobactam 3 100 .375 gm In Sodium Chloride 0.9% 100 ml @ 25 mls/hr IVPB Q8HR [facility] Rx# :[id number] Oral 760 Output: Urine 375 Stool 150 Other: Voiding Method Toilet Toilet Toilet # Voids 2 1 2 # Bowel Movements 1 - Exam GENERAL: The patient is alert and oriented x3, not in any acute distress. Well developed, well nourished. HEENT: Pupils are round and equally reacting to light. EOMI. No scleral icterus. No conjunctival pallor. Normocephalic, atraumatic. No pharyngeal erythema. No thyromegaly. CARDIOVASCULAR: S1 and S2 present. No murmurs, rubs, or gallops. PULMONARY: Chest is clear to auscultation, no wheezing or crackles. -ABDOMEN: Soft, nontender, nondistended, normoactive bowel sounds. No palpable organomegaly. Left lower colostomy and below it there is fullness with redness and some serosanguineous discharge, associated with mild tenderness no rebound tenderness MUSCULOSKELETAL: No joint swelling or deformity. EXTREMITIES: No cyanosis, clubbing, or pedal edema. NEUROLOGICAL: Gross neurological examination did not reveal any focal deficits. SKIN: No rashes. No petechiae - Labs CBC & Chem 7: 01/03/20 12:00 01/03/20 12:00 Labs: Abnormal Lab Results - Last 24 Hours (Table) 01/03/20 01/03/20 01/03/20 Range/Units 12:00 17:22 20:15 Sodium 134 L (137-145) mmol/L BUN 24 H (7-17) mg/dL Creatinine 1.14 H (0.52-1.04) mg/dL Glucose 335 H (74-99) mg/dL POC Glucose (mg/dL) 195 H 194 H (75-99) mg/dL Calcium 8.3 L (8.4-10.2) mg/dL 01/04/20 01/04/20 Range/Units 07:00 11:48 Sodium (137-145) mmol/L BUN (7-17) mg/dL Creatinine (0.52-1.04) mg/dL Glucose (74-99) mg/dL POC Glucose (mg/dL) 182 H 363 H (75-99) mg/dL Calcium (8.4-10.2) mg/dL Assessment and Plan Assessment: Worsening and enlarged abdominal abscesses, 11 x 4.5 x 6.4 cm marga-Ileostomy persistent hernia with possible ileus and/or enteritis Acute kidney injury chronic kidney disease stage IIIB, secondary to diabetic nephropathy Diabetes mellitus with hypoglycemia, POD Chronic atrial fibrillation on Eliquis Chronic systolic nonischemic heart failure Hypertension Hypothyroidism Plan: This is a pleasant 74 years old female who presents with worsening abdominal abscess. Continue with Zosyn. Follow-up ID recommendation. Need for surgical intervention will be addressed by Surgery primary team the patient is going for surgery on 12/29 for I&D. Follow culture results. Continue with insulin sliding scale, continue with antibiotics. Nephrology service on the case Labs and medication were reviewed.. Continue same treatment. Continue with symptomatic treatment. Resume home medication. Monitor lytes and vitals. DVT and GI prophylaxis. Further recommendations of the clinical course of the patient DVT prophylaxis: Eliquis GI Prophylaxis: Pepcid
[2020-01-04] MEDS ORDERED: SODIUM CHLORIDE 0.9% IVPB SCH (15:00)
[2020-01-04] MEDS ORDERED: DAPTOMYCIN IVPB SCH (15:00)
--- NOTE | 2020-01-04 15:02 | PN ---
PROGRESS NOTE DATE OF SERVICE: 01/04/2020 REASON FOR FOLLOWUP: Abdominal abscess and wound. INTERVAL HISTORY: The patient is currently afebrile, patient is breathing comfortably. Denies having any chest pain or cough. No nausea, vomiting. Abdominal pain is currently controlled. PHYSICAL EXAMINATION: Blood pressure 152/83 with a pulse of 64, temperature 98.4, she is 100% on room air. General description is an elderly female up in the chair in no distress. RESPIRATORY SYSTEM: Unlabored breathing, clear to auscultation. HEART: S1, S2. Regular rate and rhythm. ABDOMEN: Soft, no tenderness. Wound are covered with a wound VAC. LABS: Hemoglobin is 10, white count 8.4, BUN of 24, creatinine 1.14. DIAGNOSTIC IMPRESSION AND PLAN: Patient with abdominal abscess, status post surgical drainage. The patient overall clinical improvement. She will finish therapy with oral doxycycline, local wound care to continue with wound VAC and close outpatient followup. MMODL / IJN: [id number] /
--- NOTE | 2020-01-04 21:52 | PN ---
PROGRESS NOTE Patient is seen for followup for acute kidney injury. Her renal function has improved; creatinine down to 1.1 from yesterday. She is being treated for abdominal wall abscess and maintained on antibiotics, currently improving. Plan is for discharge today. On examination, blood pressure was 152/83, heart rate 64 per minute. Patient is afebrile. Examination shows patient has mild edema in lower extremities. Abdomen is soft, nontender. ONLINE MEDIA DIRECTOR exam is grossly intact. Labs show sodium 134, potassium 4.6, chloride 101. CO2 is 25, BUN 24, creatinine 1.14 on 01/03/2020. ASSESSMENT: 1. Acute kidney injury, acute tubular necrosis, currently resolved. 2. Mild volume overload. We can add low-dose loop diuretics post discharge, depending on renal function and volume status. Avoid grrc-uvrw-gofnyvqlvl foods. 3. Chronic kidney disease secondary to diabetic kidney disease, stage III. Baseline creatinine 1 to 1.3. 4. Hypomagnesemia, status post replacement. 5. Abdominal wall abscess, maintained on antibiotics, currently improving. PLAN: Repeat labs as outpatient. Consider loop diuretics post discharge if patient remains hypervolemic. MMODL / IJN: [id number] /
--- NOTE | 2020-01-05 12:54 | CDI ---
Documentation Clarification Form Date: 01/05/20 From: Isha Radford CCS Phone: If you have a question about this query, please contact Belinda Pérez, Education Technician at [phone] between 8am and 5pm. Admit Date: 12/27/19 Discharge Date:01/04/20 Patient Name: Sophia Swift Visit Number: [id number] ATTENTION: The Clinical Documentation Specialists (CDI) and [facility] Coding Staff appreciate your assistance in clarifying documentation. Please respond to the clarification below the line at the bottom and electronically sign. The CDI & [facility] Coding staff will review the response and follow-up if needed. Please note: Queries are made part of the Legal Health Record. If you have any questions, please contact the author of this message via ITS. Dear Dr. Quintanilla, Conflicting documentation has been found in the medical record: Consult Dr. Palomino dated 12/30 documents: Delayed surgical wound healing and abdominal ulceration with gauze packing in place- diabetes with skin ulcer History/Risk Factors: Ileostomy status, Abdominal abscess, DM, CKD, HX MRSA Clinical Indicators: Abdominal wound abscess, Parastomal hernia Treatment: Incision w/ drainage and debridement, Zosyn 3.375 mg IVPB In your opinion, what is the most clinically appropriate diagnosis for this patient? Non-healing surgical wound Diabetic ulceration with abscess Other explanation of clinical findings Unable to determine (no explanation for clinical findings) Nonhealing, chronic abscess cavity MTDD
== END 2020-01-04 15:35 | DRG 579 ==
LOC: EC 16:48 → 4SSUR 16:58
PROVIDERS: ADMIT Surgery; ATTEND Surgery
PROC: 0JD80ZZ Extraction of Abdomen Subcutaneous Tissue and Fascia, Open Approach (ICD-10-PCS; principal; 2019-12-30 15:20)
DX: L02.211 Cutaneous abscess of abdominal wall (principal); N17.0 Acute kidney failure with tubular necrosis; I13.0 Hypertensive heart and chronic kidney disease with heart failure and stage 1 through stage 4 chronic kidney disease, or unspecified chronic kidney disease; I42.8 Other cardiomyopathies; I48.20 Chronic atrial fibrillation, unspecified; I50.22 Chronic systolic (congestive) heart failure; Z11.59 Encounter for screening for other viral diseases; E11.649 Type 2 diabetes mellitus with hypoglycemia without coma; D63.1 Anemia in chronic kidney disease; N18.3 Chronic kidney disease, stage 3 (moderate); E11.22 Type 2 diabetes mellitus with diabetic chronic kidney disease; E11.622 Type 2 diabetes mellitus with other skin ulcer; Z93.2 Ileostomy status; Z79.4 Long term (current) use of insulin; E78.5 Hyperlipidemia, unspecified; E03.9 Hypothyroidism, unspecified; R62.50 Unspecified lack of expected normal physiological development in childhood; E83.42 Hypomagnesemia; R11.2 Nausea with vomiting, unspecified; K43.5 Parastomal hernia without obstruction or gangrene; Z71.3 Dietary counseling and surveillance; Z79.899 Other long term (current) drug therapy; Z79.890 Hormone replacement therapy; Z79.01 Long term (current) use of anticoagulants; Z90.49 Acquired absence of other specified parts of digestive tract; Z86.14 Personal history of Methicillin resistant Staphylococcus aureus infection
CPT/HCPCS: 36415; 74176; 76770; 80048; 80053; 81001; 83735; 84145; 85025; 85610; 87635; 96365; 99285

== ENCOUNTER 2023-01-05 10:43 | Emergency (ER) | payer MEDICARE, OTHER ==
[2023-01-05] MEDS ORDERED: ALTEPLASE 2 MG VIAL (CATHFLO) IV STA (11:07)
[2023-01-05 12:04] LABS: Anisocytosis Slight; Basophils % (A) 0 %; Eosinophils % (A) 0 %; HCT 29.4 % (34.0-46.0); HGB 9.5 gm/dL (11.4-16.0); Lymphocytes # (A) 0.8 k/uL (1.0-4.8); Lymphocytes % (A) 10 %; MCH 30.3 pg (25.0-35.0); MCHC 32.3 g/dL (31.0-37.0); MCV 93.9 fL (80.0-100.0); Mean Platelet Volume 9.1; Monocytes # (A) 0.3 k/uL (0-1.0); Monocytes % (A) 3 %; Neutrophils # (A) 6.7 k/uL (1.3-7.7); Neutrophils % (A) 85 %; Platelet Count 269 k/uL (150-450); RBC 3.13 m/uL (3.80-5.40); RDW 17.4 % (11.5-15.5); WBC 7.9 k/uL (3.8-10.6)
--- NOTE | 2023-01-05 12:13 | ED ---
General Adult HPI - General Source: patient, EMS, RN notes reviewed Mode of arrival: EMS Limitations: no limitations <Bob Jarrett - Last Filed: 01/05/23 13:33> - History of Present Illness -: hour(s) Radiation: non-radiation Consistency: constant Improves with: none Worsens with: none Associated Symptoms: denies other symptoms Treatments Prior to Arrival: none <William Roman - Last Filed: 01/05/23 17:20> - General Chief complaint: Recheck/Abnormal Lab/Rx Stated complaint: Dialysis catheter issue Time Seen by Provider: 01/05/23 10:50 - History of Present Illness Initial comments: 77-year-old female presents emergency Department with chief complaint of dialysis catheter failure. Patient reportedly was given have dialysis today but her catheter was clogged. Patient states that she has no pain denies any shortness breath no significant weight gain. Patient offers no other associated symptoms. (Bob Jarrett) - Related Data Home Medications Medication Instructions Recorded Confirmed Atorvastatin [Lipitor] 10 mg PO HS@209906/03/18 01/05/23 Levothyroxine Sodium [Synthroid] 25 mcg PO HS@2000 06/03/18 01/05/23 Magnesium Oxide [Mag-Ox] 400 mg PO DAILY@0806/03/18 01/05/23 Acetaminophen [Tylenol Arthritis] 650 mg PO Q6H PRN 12/27/19 01/05/23 Famotidine [Pepcid] 20 mg PO Q48H 12/27/19 01/05/23 Calcium Acetate [Phoslo] 667 mg PO DAILY@79901/05/23 01/05/23 Calcium Carbonate [Calcium] 600 mg PO DAILY@79901/05/23 01/05/23 Cetirizine HCl [Zyrtec] 10 mg PO DAILY@79901/05/23 01/05/23 Cholecalciferol [Vitamin D3 (25 50 mcg PO DAILY@79901/05/23 01/05/23 Mcg = 1000 Iu)] Daily Angie 1 tab PO DAILY@79901/05/23 01/05/23 Fluticasone Nasal [place] [Flonase 2 spray EA NOSTRIL DAILY@0701/05/23 01/05/23 Nasal [place]] Insulin Degludec [Tresiba] 35 units SQ DAILY@0700 01/05/23 01/05/23 Insulin Lispro [Admelog Solostar] See Protocol SQ AC-TID 01/05/23 01/05/23 Ondansetron [Zofran] 4 mg PO Q6H PRN 01/05/23 01/05/23 Spironolactone [Aldactone] 25 mg PO DAILY@0800 01/05/23 01/05/23 Torsemide [Demadex] 10 mg PO DAILY@0800 01/05/23 01/05/23 carvediloL [Coreg] 6.25 mg PO BID@0800,1700 01/05/23 01/05/23 dilTIAZem HCL 60 mg PO TID 01/05/23 01/05/23 Allergies Allergy/AdvReac Type Severity Reaction Status Date / Time FOOD DYE/COLORING Allergy Unknown Uncoded 01/05/23 12:01 Review of Systems ROS Other: All systems not noted in ROS Statement are negative. <Bob Jarrett - Last Filed: 01/05/23 13:33> ROS Other: All systems not noted in ROS Statement are negative. <William Roman - Last Filed: 01/05/23 17:20> ROS Statement: Those systems with pertinent positive or pertinent negative responses have been documented in the HPI. Past Medical History Past Medical History: Atrial Fibrillation, Heart Failure, Diabetes Mellitus, Hyperlipidemia, Hypertension, Thyroid Disorder Additional Past Medical History / Comment(s): Mild developmental delay, the patient lives in a foster home since 1990, CHF with systolic heart failure/nonischemic cardiomyopathy, chronic atrial fibrillation, on Eliquis, hypertension, hyperlipidemia, diabetes mellitus, hypothyroidism, abdominal abscess History of Any Multi-Drug Resistant Organisms: MRSA Date of last positivie culture/infection: 11/26/19 MDRO Source:: ABDOMEN Past Surgical History: Bladder Surgery, Bowel Resection Additional Past Surgical History / Comment(s): HAS COLOSTOMY. Past Anesthesia/Blood Transfusion Reactions: Unable to Obtain Past Psychological History: No Psychological Hx Reported Smoking Status: Never smoker Past Alcohol Use History: None Reported Past Drug Use History: None Reported - Past Family History Mother Family Medical History: Unable to Obtain <Bob Jarrett - Last Filed: 01/05/23 13:33> General Exam Limitations: no limitations General appearance: alert, in no apparent distress Head exam: Present: atraumatic, normocephalic, normal inspection Eye exam: Present: normal appearance, PERRL, EOMI. Absent: scleral icterus, conjunctival injection, periorbital swelling Respiratory exam: Present: normal lung sounds bilaterally. Absent: respiratory distress, wheezes, rales, rhonchi, stridor Cardiovascular Exam: Present: regular rate, normal rhythm, normal heart sounds. Absent: systolic murmur, diastolic murmur, rubs, gallop, clicks <Bob Jarrett - Last Filed: 01/05/23 13:33> General appearance: alert, in no apparent distress Head exam: Present: atraumatic, normocephalic, normal inspection Eye exam: Present: normal appearance, PERRL, EOMI. Absent: scleral icterus, conjunctival injection, periorbital swelling ENT exam: Present: normal exam, mucous membranes moist Neck exam: Present: normal inspection. Absent: tenderness, meningismus, lymphadenopathy Respiratory exam: Present: normal lung sounds bilaterally. Absent: respiratory distress, wheezes, rales, rhonchi, stridor Cardiovascular Exam: Present: regular rate, normal rhythm, normal heart sounds. Absent: systolic murmur, diastolic murmur, rubs, gallop, clicks GI/Abdominal exam: Present: soft, normal bowel sounds. Absent: distended, tenderness, guarding, rebound, rigid Extremities exam: Present: normal inspection, full ROM, normal capillary refill. Absent: tenderness, pedal edema, joint swelling, calf tenderness Back exam: Present: normal inspection Neurological exam: Present: alert, oriented X3, CN II-XII intact Psychiatric exam: Present: normal affect, normal mood Skin exam: Present: warm, dry, intact, normal color. Absent: rash <William Roman - Last Filed: 01/05/23 17:20> Course <William Roman - Last Filed: 01/05/23 17:20> Vital Signs 01/05/23 01/05/23 10:44 14:48 Temperature 98.6 F Pulse Rate 67 63 Respiratory 16 18 Rate Blood Pressure 119/60 127/75 O2 Sat by Pulse 100 Oximetry - Reevaluation(s) Reevaluation #1: 01/05/23 17:17 Medical records reviewed. (William Roman) Reevaluation #2: 01/05/23 17:17 Patient has no symptoms, catheter is improved (William Roman) Reevaluation #3: 01/05/23 17:17 Patient informed results and questions answered (William Roman) Medical Decision Making - Lab Data Result diagrams: 01/05/23 11:46 01/05/23 11:46 <Bob Jarrett - Last Filed: 01/05/23 13:33> - Lab Data Result diagrams: 01/05/23 11:46 01/05/23 11:46 <William Roman - Last Filed: 01/05/23 17:20> - Medical Decision Making Was pt. sent in by a medical professional or institution (, PA, SENIOR RECRUITMENT CONSULTANT, urgent care, hospital, or fdc...) When possible be specific @ -Sent in by fdc for dialysis catheter evaluation Did you speak to anyone other than the patient for history (EMS, parent, family, police, friend...)? What history was obtained from this source @ -No Did you review nursing and triage notes (agree or disagree)? Why? @ -I reviewed and agree with nursing and triage notes Were old charts reviewed (outside hosp., previous admission, EMS record, old EKG, old radiological studies, urgent care reports/EKG's, fdc records)? Report findings @ -No old charts were reviewed Differential Diagnosis (chest pain, altered mental status, abdominal pain women, abdominal pain men, vaginal bleeding, weakness, fever, dyspnea, syncope, headache, dizziness, GI bleed, back pain, seizure, CVA, palpatations, mental health, musculoskeletal)? @ -Renal failure, dialysis catheter dysfunction EKG interpreted by me (3pts min.). @ -As above X-rays interpreted by me (1pt min.). @ -None done CT interpreted by me (1pt min.). @ -None done U/S interpreted by me (1pt. min.). @ -None done What testing was considered but not performed or refused? (CT, X-rays, U/S, labs)? Why? @ -None What meds were considered but not given or refused? Why? @ -None Did you discuss the management of the patient with other professionals (prof blood i.e. , PA, SENIOR RECRUITMENT CONSULTANT, lab, RT, psych nurse, medical social worker, poultry feed supervisor, teacher, commercial escrow officer, employment case manager)? Give summary @ -Discussed with nephrology, Hemo tech regarding using alteplase on dialysis catheter. Was smoking cessation discussed for >3mins.? @ -No Was critical care preformed (if so, how long)? @ -No Were there social determinants of health that impacted care today? How? (Homelessness, low income, unemployed, alcoholism, drug addiction, transportation, low edu. Level, literacy, decrease access to med. care, correction, rehab)? @ -No Was there de-escalation of care discussed even if they declined (Discuss DNR or withdrawal of care, Hospice)? DNR status @ -No What co-morbidities impacted this encounter? (DM, HTN, Smoking, COPD, CAD, Cancer, CVA, ARF, Chemo, Hep., AIDS, mental health diagnosis, sleep apnea, morbid obesity)? @ -Renal failure Was patient admitted / discharged? Hospital course, mention meds given and route, prescriptions, significant lab abnormalities, going to OR and other pertinent info. @ -Discharged patient's catheter was placed using alteplase, patient had dialysis is stable for discharge. Undiagnosed new problem with uncertain prognosis? @ -No Drug Therapy requiring intensive monitoring for toxicity (Heparin, Nitro, Insulin, Cardizem)? @ -No Were any procedures done? @ -No Diagnosis/symptom? @ -Dialysis catheter malfunction, Acute, or Chronic, or Acute on Chronic? @ -Acute Uncomplicated (without systemic symptoms) or Complicated (systemic symptoms)? @ -Uncomplicated Side effects of treatment? @ -No Exacerbation, Progression, or Severe Exacerbation? @ -No Poses a threat to life or bodily function? How? (Chest pain, [place], [place], pneumonia, PE, COPD, DKA, ARF, appy, cholecystitis, CVA, Diverticulitis, Homicidal, Suicidal, threat to staff... and all critical care pts) @ -No (Bob Jarrett) 77 female did receive dialysis here in the ER, dialysis catheter was able to be manipulated function, patient does have going catheter currently working. Patient lab values otherwise within normal limits patient is no fluid overload, patient can be discharged home (William Roman) - Lab Data Lab Results 01/05/23 01/05/23 Range/Units 11:46 11:46 WBC 7.9 (3.8-10.6) k/uL RBC 3.13 L (3.80-5.40) m/uL Hgb 9.5 L (11.4-16.0) gm/dL Hct 29.4 L (34.0-46.0) % MCV 93.9 (80.0-100.0) fL MCH 30.3 (25.0-35.0) pg MCHC 32.3 (31.0-37.0) g/dL RDW 17.4 H (11.5-15.5) % Plt Count 269 (150-450) k/uL MPV 9.1 Neutrophils % 85 % Lymphocytes % 10 % Monocytes % 3 % Eosinophils % 0 % Basophils % 0 % Neutrophils # 6.7 (1.3-7.7) k/uL Lymphocytes # 0.8 L (1.0-4.8) k/uL Monocytes # 0.3 (0-1.0) k/uL Eosinophils # 0.0 (0-0.7) k/uL Basophils # 0.0 (0-0.2) k/uL Anisocytosis Slight Sodium 133 L (137-145) mmol/L Potassium 4.7 (3.5-5.1) mmol/L Chloride 96 L (98-107) mmol/L Carbon Dioxide 26 (22-30) mmol/L Anion Gap 11 mmol/L BUN 32 H (7-17) mg/dL Creatinine 3.07 H (0.52-1.04) mg/dL Est GFR (CKD-EPI)AfAm 16 (>60 ml/min/1.73 sqM) Est GFR (CKD-EPI)NonAf 14 (>60 ml/min/1.73 sqM) Glucose 291 H (74-99) mg/dL Calcium 8.6 (8.4-10.2) mg/dL Phosphorus 3.6 (2.5-4.5) mg/dL Magnesium 1.9 (1.6-2.3) mg/dL Disposition <Bob Jarrett - Last Filed: 01/05/23 13:33> Is patient prescribed a controlled substance at d/c from ED?: No Time of Disposition: 17:00 <William Roman - Last Filed: 01/05/23 17:20> Clinical Impression: Acute renal failure, Chronic renal failure, Hemodialysis catheter malfunction Disposition: HOME SELF-CARE Condition: Good Instructions (If sedation given, give patient instructions): Hemodialysis (DC) Referrals: Jose Miller DO [STAFF PHYSICIAN] - 1-2 days
[2023-01-05 12:32] LABS: Calcium 8.6 mg/dL (8.4-10.2); Magnesium 1.9 mg/dL (1.6-2.3); Phosphorus 3.6 mg/dL (2.5-4.5); Potassium 4.7 mmol/L (3.5-5.1)
[2023-01-05 18:55] VITALS: BP 162/80; PULSE 82; RESP 18; TEMP 98
== END 2023-01-05 19:30 | disposition home or self-care (01) ==
LOC: EC 10:43
DX: T82.49XA Other complication of vascular dialysis catheter, initial encounter (principal); N17.9 Acute kidney failure, unspecified; E11.22 Type 2 diabetes mellitus with diabetic chronic kidney disease; I13.0 Hypertensive heart and chronic kidney disease with heart failure and stage 1 through stage 4 chronic kidney disease, or unspecified chronic kidney disease; N18.9 Chronic kidney disease, unspecified; I48.20 Chronic atrial fibrillation, unspecified; E78.5 Hyperlipidemia, unspecified; E03.9 Hypothyroidism, unspecified; Z79.4 Long term (current) use of insulin; Z79.01 Long term (current) use of anticoagulants; Z79.890 Hormone replacement therapy; Z79.899 Other long term (current) drug therapy; Z99.2 Dependence on renal dialysis; Z91.018 Allergy to other foods
CPT/HCPCS: 36415; 80048; 83735; 84100; 85025; 90935; 96374; 99284

== ENCOUNTER 2023-02-11 10:39 | Day surgery (SDC) | payer MEDICARE, OTHER ==
[2023-02-07 09:13] VITALS: BMI 30.3
[~2023-02-11 10:39] MED LIST changes: -ALPRAZolam 0.25 MG TAB PO PRN; -ASPIRIN 325 MG TAB PO ONE; +LACTATED RINGERS 1,000 ML IV SCH; -SODIUM CHLORIDE 0.9% 1,000 ML in EMPTY BAG 1 BAG IV ONE
[2023-02-11 11:29] LABS: Glucose,Whole Blood 130 mg/dL (70-110)
[2023-02-11 11:30] VITALS: TEMP 97.1
[2023-02-11] MEDS ORDERED: SODIUM CHLORIDE 0.9% 1,000 ML IV ONE (11:34)
[2023-02-11] MEDS ORDERED: LIDOCAINE 2% INJ 20 MG/ML (2 ML VIAL) ONE (12:19)
[2023-02-11] MEDS ORDERED: PROPOFOL 10 MG/ML 20 ML VIAL IV ONE (12:19)
--- NOTE | 2023-02-11 12:30 | P.GSHP ---
History of Present Illness H&P Date: 02/11/23 Chief Complaint: anemia, possible GI bleed this 77-year-old female with iron to anemia. Ppatient presents today for EGD and colonoscopy for possible GI bleed. Past Medical History Past Medical History: Atrial Fibrillation, Heart Failure, Diabetes Mellitus, GERD/Reflux, GI Bleed, Hyperlipidemia, Hypertension, Osteoarthritis (OA), Pne umonia, Renal Disease, Thyroid Disorder Additional Past Medical History / Comment(s): Mild developmental delay, resides at [facility] # [phone]., [facility] Public [facility] # [phone]., CHF with systolic heart failure/nonischemic cardiomyopathy, hypothyroidism, hx of abdominal wall abscess., pericardial effusion, sinus tachycardia., uti's, sepsis, ileus., anemia dialysis at [facility] [place] , ., & Saturdays., dialysis catheter left chest., colostomy., ambulates with rolling walker and 1 person assist. History of Any Multi-Drug Resistant Organisms: MRSA Date of last positivie culture/infection: 11/26/19 MDRO Source:: ABDOMEN Past Surgical History: Bladder Surgery, Bowel Resection Additional Past Surgical History / Comment(s): COLOSTOMY. (2013)., exploratory laparotomy & repair and colostomy revision incisional hernia repair & lysis of adhesions. (2019) Past Anesthesia/Blood Transfusion Reactions: Unable to Obtain Past Psychological History: No Psychological Hx Reported Smoking Status: Never smoker Past Alcohol Use History: None Reported Past Drug Use History: None Reported - Past Family History Mother Family Medical History: Unable to Obtain Medications and Allergies Home Medications Medication Instructions Recorded Confirmed Type Atorvastatin [Lipitor] 10 mg PO HS 06/03/18 02/11/23 History Levothyroxine Sodium [Synthroid] 25 mcg PO HS 06/03/18 02/11/23 History Magnesium Oxide [Mag-Ox] 400 mg PO DAILY 06/03/18 02/11/23 History Acetaminophen [Tylenol Arthritis] 650 mg PO Q6H PRN 12/27/19 02/11/23 History Famotidine [Pepcid] 20 mg PO Q48H 12/27/19 02/11/23 History Calcium Acetate [Phoslo] 667 mg PO DAILY 01/05/23 02/11/23 History Calcium Carbonate [Calcium] 600 mg PO DAILY 01/05/23 02/11/23 History Cetirizine HCl [Zyrtec] 10 mg PO DAILY 01/05/23 02/11/23 History Cholecalciferol [Vitamin D3 (25 50 mcg PO DAILY@0800 01/05/23 02/11/23 History Mcg = 1000 Iu)] Daily Angie 1 tab PO DAILY 01/05/23 02/11/23 History Fluticasone Nasal [place] [Flonase 2 spray EA NOSTRIL DAILY 01/05/23 02/11/23 History Nasal [place]] Insulin Degludec [Tresiba] 20 units SQ DAILY 01/05/23 02/11/23 History Ondansetron [Zofran] 4 mg PO Q6H PRN 01/05/23 02/11/23 History Spironolactone [Aldactone] 12.5 mg PO DAILY 01/05/23 02/11/23 History Torsemide [Demadex] 40 mg PO DAILY 01/05/23 02/11/23 History carvediloL [Coreg] 6.25 mg PO BID 01/05/23 02/11/23 History dilTIAZem HCL 60 mg PO TID 01/05/23 02/11/23 History Apixaban [Eliquis] 2.5 mg PO BID 02/07/23 02/11/23 History Insulin Lispro [Admelog Solostar] 0 units SQ AC-TID PRN 02/07/23 02/11/23 History Allergies Allergy/AdvReac Type Severity Reaction Status Date / Time orange juice [[place]] Allergy Unknown Unknown Verified 02/11/23 11:38 strawberry Allergy Unknown Unknown Verified 02/11/23 11:38 fruits that are orange & red Allergy Unknown Unknown Uncoded 02/11/23 11:38 color FOOD DYE/COLORING Allergy Unknown Uncoded 02/11/23 11:38 Surgical - Exam Vital Signs Temp Pulse Resp BP Pulse Ox 97.1 F L 64 14 152/72 99 02/11/23 11:28 02/11/23 11:28 02/11/23 11:28 02/11/23 11:28 02/11/23 11:28 - General well developed, well nourished, no distress - Eyes PERRL - ENT normal pinna - Neck no masses - Respiratory normal expansion - Cardiovascular Rhythm: regular - Abdomen Abdomen: soft, non tender Results - Labs 02/11/23 11:18 Abnormal Lab Results - Last 24 Hours (Table) 02/11/23 02/11/23 Range/Units 11:18 11:26 Potassium 5.3 H (3.5-5.1) mmol/L POC Glucose (mg/dL) 130 H (70-110) mg/dL Diabetes panel 02/11/23 Range/Units 11:18 Potassium 5.3 H (3.5-5.1) mmol/L Pituitary panel 02/11/23 Range/Units 11:18 Potassium 5.3 H (3.5-5.1) mmol/L Adrenal panel 02/11/23 Range/Units 11:18 Potassium 5.3 H (3.5-5.1) mmol/L Assessment and Plan Assessment: iron deficiency anemia Possible GI bleed We'll perform EGD and colonoscopy.
--- NOTE | 2023-02-11 12:54 | P.OP ---
Date of Procedure: 02/11/23 Preoperative Diagnosis: iron deficiency anemia Possible GI bleed Postoperative Diagnosis: antral gastritis Anesthesia: MAC Surgeon: Cedric Quintanilla Pathology: other (antrum) Condition: stable Disposition: PACU Description of Procedure: the patient's placed on the endoscopy table in the lateral position. She received IV sedation. The gastroscope placed oropharynx passed in the esophagus and into the stomach. Scope was then placed through the pylorus. The first and second portion of the duodenum appeared normal. The scope summer back the antrum was mildly inflamed. A biopsy was performed. The scope was then retroflexed and the remainder the stomach appeared normal. The GE junction was at 40 cm. The distal esophagus appeared normal. The proximal esophagus appeared normal. Scope withdrawn for patient. Next digital rectal exam was performed. There was evidence of anal stenosis. The anus was gently dilated with the examining finger. And then the flexible colonoscope was placed patient anus. In the rectum there is evidence of proctitis. There was some white exudative film on the rectal mucosa with averevidence of some hemorrhage. A biopsy of the rectus performed with the cold forcep. The flexible colonoscope was then advanced into the rectal stump. The rectal stump measured apapproximately 20 cm in length. This point the scope was withdrawn. And then thewas placed in the patient's colostomy. The colostomy is located in the left lower quadrant. The scope was then advanced through the colon. In the left colon there was a small polyp seen this is removed with the snare. The polyp was unable to be retrieved. A portion of the polyp was suctioned. Scope was then advanced another polyp was seen and removed a combination of snare and cold forcep. The scope was then further advanced and the transverse colon. Scope could not be placed into the right colon secondary to tortuosity of the bowel. Several attempts were made to maneuver the colonoscope the patient was bucking and was not tolerating the procedure. This point scope was withdrawn. The visualized transverse colon appeared normal. The visualized ascending colon appeared normal except for the polyps is removed. There is no evidence of any GI bleed in visualize colon. The scope was then withdrawn from the colostomy.
[2023-02-11 13:00] VITALS: RESP 16
[2023-02-11 13:11] LABS: Glucose,Whole Blood 116 mg/dL (70-110)
[2023-02-11 13:20] VITALS: BP 120/77; PULSE 73
== END 2023-02-11 13:42 | disposition home or self-care (01) ==
LOC: ORWHC2ENDO 10:39
PROVIDERS: ATTEND Surgery
DX: K29.50 Unspecified chronic gastritis without bleeding (principal); D12.6 Benign neoplasm of colon, unspecified; D50.9 Iron deficiency anemia, unspecified; K62.89 Other specified diseases of anus and rectum; I48.91 Unspecified atrial fibrillation; E78.5 Hyperlipidemia, unspecified; I11.0 Hypertensive heart disease with heart failure; I50.20 Unspecified systolic (congestive) heart failure; E03.9 Hypothyroidism, unspecified; M19.90 Unspecified osteoarthritis, unspecified site; J18.9 Pneumonia, unspecified organism; E11.22 Type 2 diabetes mellitus with diabetic chronic kidney disease; N18.6 End stage renal disease; K21.9 Gastro-esophageal reflux disease without esophagitis; Z98.84 Bariatric surgery status; Z98.890 Other specified postprocedural states; Z99.2 Dependence on renal dialysis; Z79.4 Long term (current) use of insulin; Z79.890 Hormone replacement therapy; Z79.899 Other long term (current) drug therapy; Z91.018 Allergy to other foods
CPT/HCPCS: 88305; 84132; 45380; 44394; 44389; 43239; J2704; J2001

== ENCOUNTER 2023-07-04 07:42 | Emergency (ER) | payer MEDICARE, OTHER ==
[2023-07-04 08:18] VITALS: RESP 18; TEMP 97.7
--- NOTE | 2023-07-04 08:19 | ED ---
Recheck HPI - General Chief Complaint: Recheck/Abnormal Lab/Rx Stated Complaint: jaundice Time Seen by Provider: 07/04/23 07:46 Source: patient, EMS, RN notes reviewed Mode of arrival: EMS Limitations: no limitations - History of Present Illness Initial Comments: This is a 77-year-old female who presents to the emergency department for jaundice. Patient lives at [facility] and for the last 2 days the staff members have noticed her body becoming jaundiced. She is on hemodialysis Saturday, , and Saturday, but has not yet received dialysis today. Patient does complain of some intermittent right upper quadrant and epigastric pain beginning last night. Denies any nausea or vomiting. She has not started any new medications recently and denies any recent illness. Also denies any hx of liver disease. MD Complaint: abnormal lab - Related Data Home Medications Medication Instructions Recorded Confirmed Atorvastatin [Lipitor] 10 mg PO HS 06/03/18 07/04/23 Levothyroxine Sodium [Synthroid] 25 mcg PO HS 06/03/18 07/04/23 Magnesium Oxide [Mag-Ox] 400 mg PO DAILY 06/03/18 07/04/23 Acetaminophen [Tylenol Arthritis] 650 mg PO Q6H PRN 12/27/19 07/04/23 Famotidine [Pepcid] 20 mg PO Q48H 12/27/19 07/04/23 Daily Angie 1 tab PO DAILY 01/05/23 07/04/23 Fluticasone Nasal [place] [Flonase 2 spray EA NOSTRIL DAILY 01/05/23 07/04/23 Nasal [place]] Insulin Degludec [Tresiba] 20 units SQ DAILY 01/05/23 07/04/23 Ondansetron [Zofran] 4 mg PO Q6H PRN 01/05/23 07/04/23 Spironolactone [Aldactone] 12.5 mg PO DAILY 01/05/23 07/04/23 carvediloL [Coreg] 6.25 mg PO BID 01/05/23 07/04/23 dilTIAZem HCL 60 mg PO TUTHSA@1300,2100 01/05/23 07/04/23 Apixaban [Eliquis] 2.5 mg PO BID 02/07/23 07/04/23 Insulin Aspart [NovoLOG Flexpen] See Protocol SQ SUMOWEFR 07/04/23 07/04/23 Insulin Aspart [NovoLOG Flexpen] See Protocol SQ TUTHSA 07/04/23 07/04/23 Sevelamer [Renvela] 800 mg PO DAILY@1200 07/04/23 07/04/23 Torsemide [Demadex] 40 mg PO DAILY 07/04/23 07/04/23 dilTIAZem HCL 60 mg PO SUMOWEFR@08,13,21 07/04/23 07/04/23 Allergies Allergy/AdvReac Type Severity Reaction Status Date / Time orange juice [[place]] Allergy Unknown Unknown Verified 07/04/23 14:08 strawberry Allergy Unknown Unknown Verified 07/04/23 14:08 fruits that are orange & red Allergy Unknown Unknown Uncoded 07/04/23 14:08 color FOOD DYE/COLORING Allergy Unknown Uncoded 07/04/23 14:08 Review of Systems ROS Statement: Those systems with pertinent positive or pertinent negative responses have been documented in the HPI. ROS Other: All systems not noted in ROS Statement are negative. Past Medical History Past Medical History: Atrial Fibrillation, Heart Failure, Diabetes Mellitus, GERD/Reflux, GI Bleed, Hyperlipidemia, Hypertension, Osteoarthritis (OA), Pneumonia, Renal Disease, Thyroid Disorder Additional Past Medical History / Comment(s): Mild developmental delay, resides at [facility] # [phone]., [facility] Public Guardian # [phone]., CHF with systolic heart failure/nonischemic cardiomyopathy, hypothyroidism, hx of abdominal wall abscess., pericardial effusion, sinus tachycardia., uti's, sepsis, ileus., anemia dialysis at [facility] , ., & Saturdays., dialysis catheter left chest., colostomy., ambulates with rolling walker and 1 person assist. History of Any Multi-Drug Resistant Organisms: MRSA Date of last positivie culture/infection: 11/26/19 MDRO Source:: ABDOMEN Past Surgical History: Bladder Surgery, Bowel Resection Additional Past Surgical History / Comment(s): COLOSTOMY. (2013)., exploratory laparotomy & repair and colostomy revision incisional hernia repair & lysis of adhesions. (2019) Past Anesthesia/Blood Transfusion Reactions: Unable to Obtain Past Psychological History: No Psychological Hx Reported Smoking Status: Never smoker Past Alcohol Use History: None Reported Past Drug Use History: None Reported - Past Family History Mother Family Medical History: Unable to Obtain General Exam Limitations: no limitations General appearance: alert, in no apparent distress Head exam: Present: atraumatic, normocephalic, normal inspection Eye exam: Present: scleral icterus Respiratory exam: Present: normal lung sounds bilaterally. Absent: respiratory distress, wheezes, rales, rhonchi, stridor Cardiovascular Exam: Present: regular rate, normal rhythm, normal heart sounds. Absent: systolic murmur, diastolic murmur, rubs, gallop, clicks GI/Abdominal exam: Present: soft, tenderness (RUQ and epigastric), normal bowel sounds. Absent: distended Neurological exam: Present: alert, oriented X3, CN II-XII intact Psychiatric exam: Present: normal affect, normal mood Skin exam: Present: other (Diffuse jaundice throughout her whole body) Course Vital Signs 07/04/23 07/04/23 07/04/23 07:48 08:39 10:50 Temperature 97.7 F Pulse Rate 82 72 64 Respiratory 18 18 18 Rate Blood Pressure 112/57 104/66 125/79 O2 Sat by Pulse 99 99 96 Oximetry 07/04/23 07/04/23 14:00 15:35 Temperature Pulse Rate 70 72 Respiratory 18 18 Rate Blood Pressure 134/67 138/84 O2 Sat by Pulse 97 96 Oximetry Medical Decision Making - Medical Decision Making This is a 77-year-old female who presents to the emergency department for jaundice. Was pt. sent in by a medical professional or institution? @ -[facility] Did you speak to anyone other than the patient for history? @ -No Did you review nursing and triage notes? @ -Yes, and I agree, it is accurate with regards to the patient's symptoms. Were old charts reviewed? @ -No Differential Diagnosis? @ -Differential Jaundice: Hepatitis, medication, gallstones, infection, autoimmune problems, this is not meant to be an all-inclusive list. EKG interpreted by me (3pts min.)? @ -Not obtained X-rays interpreted by me (1pt min.)? @ -Not obtained CT interpreted by me (1pt min.)? @ -CT scan of the abdomen and pelvis obtained. My interpretation identifies biliary duct dilation. U/S interpreted by me (1pt. min.)? @ -Abdominal US obtained. My interpretation identifies CBD dilation. What testing was considered but not performed? (CT, X-rays, U/S, labs)? Why? @ -None What meds were considered but not given? Why? @ -None Did you discuss the management of the patient with other professionals? @ -Yes, I initially spoke with WILBERTO Johnson, who advised transfer to another facility for a higher level of care based on the CT scan findings and possible pancreatic involvement. I then spoke with WILBERTO Simpson at [facility], who is agreeable to ED to ED transfer. Did you reconcile home meds? @ -No Was smoking cessation discussed for >3mins.? @ -No Was critical care preformed (if so, how long)? @ -No Were there social determinants of health that impacted care today? How? (Homelessness, low income, unemployed, alcoholism, drug addiction, transportation, low edu. Level, literacy, decrease access to med. care, prison, rehab)? @ -No Was there de-escalation of care discussed even if they declined? (Discuss DNR or withdrawal of care, Hospice)? @ -No What co-morbidities impacted this encounter? (DM, HTN, Smoking, COPD, CAD, Cancer, CVA, Hep., AIDS, mental health diagnosis, sleep apnea, morbid obesity)? @ -A-fib, DM, renal disease Was patient admitted / discharged? @ -Transferred. Lab work obtained revealing transaminitis with a total bilirubin of 9.5. Conjugated bilirubin 6.1. Alkaline phosphatase 1374. AST 137 and ALT 95. Pancreatic enzymes within normal limits. We did also obtain a GGT which was found to be 641. Ultrasound of the abdomen obtained revealing dilated pancreatic and intrahepatic biliary ducts along with a dilated common bile duct. Gallbladder was not visualized. Patient denies having a cholecyste ctomy. We then obtained a computed tomography scan of the abdomen and pelvis. This identified moderate intrahepatic biliary ductal dilation and extrahepatic biliary ductal dilation with common bile duct measuring 2.6 cm. There is also focal soft tissue seen in the region of the pancreatic head that could reflect a pancreatic mass. MRI is advised. I spoke with WILBERTO Johnson, at our facility. She advised that the patient should be transferred for a higher level of care given the potential pancreatic involvement noted on the CT scan findings. Case discussed with Dr. Valencia, gastroenterology, at [facility], who is agreeable to transfer. Dr. Torres is the accepting physician for ED to ED transfer. Undiagnosed new problem with uncertain prognosis? @ -None Drug Therapy requiring intensive monitoring for toxicity (Heparin, Nitro, Insul in, Cardizem)? @ -None Were any procedures done? @ -None Diagnosis/symptom? @ -Transaminitis, jaundice, biliary duct dilation Acute, or Chronic, or Acute on Chronic? @ -Acute Uncomplicated (without systemic symptoms) or Complicated (systemic symptoms)? @ -Complicated Side effects of treatment? @ -None Exacerbation, Progression, or Severe Exacerbation] @ -Not applicable Poses a threat to life or bodily function? @ -Yes This case was discussed in detail with the attending ED physician, Dr. Hinton. Presentation, findings, and treatment plan discussed in detail as well. - Lab Data Result diagrams: 07/04/23 08:04 07/04/23 08:04 Lab Results 07/04/23 07/04/23 07/04/23 Range/Units 08:04 08:04 08:04 WBC 4.7 (3.8-10.6) k/uL RBC 3.86 (3.80-5.40) m/uL Hgb 12.6 (11.4-16.0) gm/dL Hct 39.1 (34.0-46.0) % MCV 101.4 H (80.0-100.0) fL MCH 32.7 (25.0-35.0) pg MCHC 32.2 (31.0-37.0) g/dL RDW 16.1 H (11.5-15.5) % Plt Count 250 (150-450) k/uL MPV 7.8 Neutrophils % 77 % Lymphocytes % 14 % Monocytes % 6 % Eosinophils % 1 % Basophils % 0 % Neutrophils # 3.7 (1.3-7.7) k/uL Lymphocytes # 0.7 L (1.0-4.8) k/uL Monocytes # 0.3 (0-1.0) k/uL Eosinophils # 0.0 (0-0.7) k/uL Basophils # 0.0 (0-0.2) k/uL Hypochromasia Slight Anisocytosis Slight Macrocytosis Slight PT 11.4 (10.0-12.5) sec INR 1.1 (<1.2) APTT 31.5 H (22.0-30.0) sec Sodium 138 (137-145) mmol/L Potassium 4.8 (3.5-5.1) mmol/L Chloride 100 (98-107) mmol/L Carbon Dioxide 21 L (22-30) mmol/L Anion Gap 17 mmol/L BUN 65 H (7-17) mg/dL Creatinine 5.44 H (0.52-1.04) mg/dL Est GFR (CKD-EPI)AfAm 8 (>60 ml/min/1.73 sqM) Est GFR (CKD-EPI)NonAf 7 (>60 ml/min/1.73 sqM) Glucose 196 H (74-99) mg/dL Plasma Lactic Acid Horacio (0.7-2.0) mmol/L Calcium 9.0 (8.4-10.2) mg/dL Phosphorus 5.5 H (2.5-4.5) mg/dL Magnesium 2.1 (1.6-2.3) mg/dL Total Bilirubin 9.5 H (0.2-1.3) mg/dL Conjugated Bilirubin 6.1 H (0.0-0.3) mg/dL Unconjugated Bilirubin 1.4 H (0.0-1.1) mg/dL Delta Bilirubin 2.0 H (0.0-0.2) mg/dL GGT (12-43) U/L AST 137 H (14-36) U/L ALT 95 H (4-34) U/L Alkaline Phosphatase 1374 H (38-126) U/L Ammonia (<30) umol/L Total Protein 7.1 (6.3-8.2) g/dL Albumin 3.8 (3.5-5.0) g/dL Amylase (30-110) U/L Lipase (23-300) U/L Urine Color Urine Appearance (Clear) Urine pH (5.0-8.0) Ur Specific [place] (1.001-1.035) Urine Protein (Negative) Urine Glucose (UA) (Negative) Urine Ketones (Negative) Urine Blood (Negative) Urine Nitrite (Negative) Urine Bilirubin (Negative) Urine Urobilinogen (<2.0) mg/dL Ur Leukocyte Esterase (Negative) Urine RBC (0-5) /hpf Urine WBC (0-5) /hpf Ur Squamous Epith Cells (0-4) /hpf Amorphous Sediment (None) /hpf Urine Bacteria (None) /hpf Urine Mucus (None) /hpf Acetaminophen <10.0 ug/mL 07/04/23 07/04/23 07/04/23 Range/Units 08:04 08:04 08:04 WBC (3.8-10.6) k/uL RBC (3.80-5.40) m/uL Hgb (11.4-16.0) gm/dL Hct (34.0-46.0) % MCV (80.0-100.0) fL MCH (25.0-35.0) pg MCHC (31.0-37.0) g/dL RDW (11.5-15.5) % Plt Count (150-450) k/uL MPV Neutrophils % % Lymphocytes % % Monocytes % % Eosinophils % % Basophils % % Neutrophils # (1.3-7.7) k/uL Lymphocytes # (1.0-4.8) k/uL Monocytes # (0-1.0) k/uL Eosinophils # (0-0.7) k/uL Basophils # (0-0.2) k/uL Hypochromasia Anisocytosis Macrocytosis PT (10.0-12.5) sec INR (<1.2) APTT (22.0-30.0) sec Sodium (137-145) mmol/L Potassium (3.5-5.1) mmol/L Chloride (98-107) mmol/L Carbon Dioxide (22-30) mmol/L Anion Gap mmol/L BUN (7-17) mg/dL Creatinine (0.52-1.04) mg/dL Est GFR (CKD-EPI)AfAm (>60 ml/min/1.73 sqM) Est GFR (CKD-EPI)NonAf (>60 ml/min/1.73 sqM) Glucose (74-99) mg/dL Plasma Lactic Acid Horacio 1.3 (0.7-2.0) mmol/L Calcium (8.4-10.2) mg/dL Phosphorus (2.5-4.5) mg/dL Magnesium (1.6-2.3) mg/dL Total Bilirubin (0.2-1.3) mg/dL Conjugated Bilirubin (0.0-0.3) mg/dL Unconjugated Bilirubin (0.0-1.1) mg/dL Delta Bilirubin (0.0-0.2) mg/dL GGT 641 H (12-43) U/L AST (14-36) U/L ALT (4-34) U/L Alkaline Phosphatase (38-126) U/L Ammonia (<30) umol/L Total Protein (6.3-8.2) g/dL Albumin (3.5-5.0) g/dL Amylase 62 (30-110) U/L Lipase 19 L (23-300) U/L Urine Color Yellow Urine Appearance Cloudy H (Clear) Urine pH 5.5 (5.0-8.0) Ur Specific [place] 1.010 (1.001-1.035) Urine Protein 1+ H (Negative) Urine Glucose (UA) Negative (Negative) Urine Ketones Negative (Negative) Urine Blood Trace H (Negative) Urine Nitrite Negative (Negative) Urine Bilirubin 1+ H (Negative) Urine Urobilinogen <2.0 (<2.0) mg/dL Ur Leukocyte Esterase Trace H (Negative) Urine RBC <1 (0-5) /hpf Urine WBC 8 H (0-5) /hpf Ur Squamous Epith Cells 2 (0-4) /hpf Amorphous Sediment Rare H (None) /hpf Urine Bacteria Rare H (None) /hpf Urine Mucus Rare H (None) /hpf Acetaminophen ug/mL 07/04/23 Range/Units 10:50 WBC (3.8-10.6) k/uL RBC (3.80-5.40) m/uL Hgb (11.4-16.0) gm/dL Hct (34.0-46.0) % MCV (80.0-100.0) fL MCH (25.0-35.0) pg MCHC (31.0-37.0) g/dL RDW (11.5-15.5) % Plt Count (150-450) k/uL MPV Neutrophils % % Lymphocytes % % Monocytes % % Eosinophils % % Basophils % % Neutrophils # (1.3-7.7) k/uL Lymphocytes # (1.0-4.8) k/uL Monocytes # (0-1.0) k/uL Eosinophils # (0-0.7) k/uL Basophils # (0-0.2) k/uL Hypochromasia Anisocytosis Macrocytosis PT (10.0-12.5) sec INR (<1.2) APTT (22.0-30.0) sec Sodium (137-145) mmol/L Potassium (3.5-5.1) mmol/L Chloride (98-107) mmol/L Carbon Dioxide (22-30) mmol/L Anion Gap mmol/L BUN (7-17) mg/dL Creatinine (0.52-1.04) mg/dL Est GFR (CKD-EPI)AfAm (>60 ml/min/1.73 sqM) Est GFR (CKD-EPI)NonAf (>60 ml/min/1.73 sqM) Glucose (74-99) mg/dL Plasma Lactic Acid [place] (0.7-2.0) mmol/L Calcium (8.4-10.2) mg/dL Phosphorus (2.5-4.5) mg/dL Magnesium (1.6-2.3) mg/dL Total Bilirubin (0.2-1.3) mg/dL Conjugated Bilirubin (0.0-0.3) mg/dL Unconjugated Bilirubin (0.0-1.1) mg/dL Delta Bilirubin (0.0-0.2) mg/dL GGT (12-43) U/L AST (14-36) U/L ALT (4-34) U/L Alkaline Phosphatase (38-126) U/L Ammonia 11 (<30) umol/L Total Protein (6.3-8.2) g/dL Albumin (3.5-5.0) g/dL Amylase (30-110) U/L Lipase (23-300) U/L Urine Color Urine Appearance (Clear) Urine pH (5.0-8.0) Ur Specific [place] (1.001-1.035) Urine Protein (Negative) Urine Glucose (UA) (Negative) Urine Ketones (Negative) Urine Blood (Negative) Urine Nitrite (Negative) Urine Bilirubin (Negative) Urine Urobilinogen (<2.0) mg/dL Ur Leukocyte Esterase (Negative) Urine RBC (0-5) /hpf Urine WBC (0-5) /hpf Ur Squamous Epith Cells (0-4) /hpf Amorphous Sediment (None) /hpf Urine Bacteria (None) /hpf Urine Mucus (None) /hpf Acetaminophen ug/mL - Radiology Data Radiology results: report reviewed, image reviewed Disposition Clinical Impression: Transaminitis, Jaundice, Dilation of biliary tract Disposition: OTHER INSTITUTION NOT DEFINED Referrals: Eduar Coronel MD [Primary Care Provider] - 1-2 days - Out of Hospital Transfer - Req. Specs Out of Hospital Transfer - Requested Specifics: Other Emergency Center ([facility])
[2023-07-04 08:28] LABS: Amorphous Sediment,Urine Rare /hpf; Appearance,Urine Cloudy (Clear); Bacteria,Urine Rare /hpf; Bilirubin,Urine 1+ (Negative); Blood,Urine Trace (Negative); Color,Urine Yellow; Glucose,Urine (UA) Negative (Negative); Ketones,Urine Negative (Negative); Leukocyte Esterase,Urine Trace (Negative); Mucus,Urine Rare /hpf; Nitrite,Urine Negative (Negative); PH, Urine 5.5 (5.0-8.0); Protein,Urine 1+ (Negative); RBC,Urine <1 /hpf (0-5); Squamous Epithelial Cell,Urine 2 /hpf (0-4); Urobilinogen,Urine <2.0 mg/dL (<2.0); WBC,Urine 8 /hpf (0-5)
[2023-07-04 08:37] LABS: Anisocytosis Slight; Basophils % (A) 0 %; Eosinophils % (A) 1 %; HCT 39.1 % (34.0-46.0); HGB 12.6 gm/dL (11.4-16.0); Hypochromasia Slight; Lymphocytes # (A) 0.7 k/uL (1.0-4.8); Lymphocytes % (A) 14 %; MCH 32.7 pg (25.0-35.0); MCHC 32.2 g/dL (31.0-37.0); MCV 101.4 fL (80.0-100.0); Macrocytosis Slight; Mean Platelet Volume 7.8; Monocytes # (A) 0.3 k/uL (0-1.0); Monocytes % (A) 6 %; Neutrophils # (A) 3.7 k/uL (1.3-7.7); Neutrophils % (A) 77 %; Platelet Count 250 k/uL (150-450); RBC 3.86 m/uL (3.80-5.40); RDW 16.1 % (11.5-15.5); WBC 4.7 k/uL (3.8-10.6)
[2023-07-04 08:51] LABS: ALT 95 U/L (4-34); Acetaminophen <10.0 ug/mL; African American GFR (CKD) 8 (>60 ml/min/1.73 sqM); Anion Gap 17 mmol/L; Bilirubin, Conjugated 6.1 mg/dL (0.0-0.3); Bilirubin,Unconjugated 1.4 mg/dL (0.0-1.1); Blood Urea Nitrogen 65 mg/dL (7-17); Carbon Dioxide 21 mmol/L (22-30); Chloride 100 mmol/L (98-107); Glucose 196 mg/dL (74-99); Non-African American GFR(CKD) 7 (>60 ml/min/1.73 sqM); Sodium 138 mmol/L (137-145); Total Bilirubin 9.5 mg/dL (0.2-1.3)
[2023-07-04 09:11] LABS: Potassium 4.8 mmol/L (3.5-5.1)
[2023-07-04 09:12] LABS: AST 137 U/L (14-36); Albumin 3.8 g/dL (3.5-5.0); Alkaline Phosphatase 1374 U/L (38-126); Magnesium 2.1 mg/dL (1.6-2.3); Phosphorus 5.5 mg/dL (2.5-4.5); Total Protein 7.1 g/dL (6.3-8.2)
[2023-07-04 09:26] LABS: INR 1.1 (<1.2); Partial Thromboplastin Time 31.5 sec (22.0-30.0); Prothrombin Time 11.4 sec (10.0-12.5)
--- NOTE | 2023-07-04 10:12 | US ---
EXAMINATION TYPE: US abdomen limited DATE OF EXAM: 07/04/2023 COMPARISON: 12/28/2019 renal ultrasound. CLINICAL INDICATION: Female, 77 years old with history of Transaminitis, RUQ pain; RUQ pain, right fl ank pain, transaminitis TECHNIQUE: Multiple sonographic images of the right upper quadrant are obtained. FINDINGS: EXAM MEASUREMENTS: Liver Length: 16.7 cm Gallbladder Wall: not visualized cm CBD: 1.8 cm Right Kidney: 8.8x4.9x4.0 cm DRAWER LINER NOTES: Pancreas: Markedly dilated pancreatic duct measures up to 0.9cm. Normal up to 0.3 cm. Liver: severely dilated intrahepatic ducts seen throughout Gallbladder: not visualized, patient denies cholecystectomy, may be contracted or nondiscernible fro m adjacent dilated ducts Evidence for sonographic Becerra's sign: No CBD: dilated Right Kidney: small 1cm anechoic structure at superior pole, cortical thinning exam limited by bowel, body habitus, patient cooperation and dilated ducts IMPRESSION: 1. Dilated pancreatic duct and intrahepatic biliary ducts. Common bile duct is dilated. Consider melodie tional workup with ERCP. 2. Changes suggestive of chronic right renal failure. 3. Hepatomegaly
[2023-07-04 11:44] LABS: Amylase 62 U/L (30-110); GGT 641 U/L (12-43); Lipase 19 U/L (23-300)
--- NOTE | 2023-07-04 13:12 | CT ---
EXAMINATION TYPE: CT abdomen pelvis wo con DATE OF EXAM: 07/04/2023 COMPARISON: 12/28/2001 HISTORY: Jaundice, abdominal pain, elevated LFTs Examination of the solid and hollow viscera is limited given the lack of contrast. FINDINGS: LUNG BASES: No evidence for nodule. No evidence for infiltrate. LIVER/GB: The gallbladder is not visualized. There is interval development of at least moderate intra hepatic biliary ductal dilatation and extrahepatic biliary ductal dilatation with common bile duct me asuring 2.6 cm. Focal soft tissue seen in the region of the pancreatic head could reflect pancreatic head mass. Most of the pancreas is atrophic. MRI recommended. No space-occupying hepatic lesion. PANCREAS: No pancreatic mass identified. No inflammatory process seen. SPLEEN: No evidence for splenomegaly. No intrasplenic lesions seen. ADRENALS: No adrenal nodules identified. No evidence for thickening. KIDNEYS: Atrophic changes of the kidneys with cystic change identified lower pole left kidney. No prisca dence for renal mass. No nephrolithiasis. No hydronephrosis. 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 Appendix has a normal appearance. No ev idence of bowel obstruction. No inflammatory process. Lymph nodes: No evidence for adenopathy greater than 1 cm. Abdominal aorta: Atheromatous changes seen. No evidence for aneurysm. Genital organs: Sternotomy changes noted. Other: Severe degenerative changes lumbar spine. IMPRESSION: 1.There is interval development of at least moderate intrahepatic biliary ductal dilatation and extra hepatic biliary ductal dilatation with common bile duct measuring 2.6 cm. Focal soft tissue seen in t he region of the pancreatic head could reflect pancreatic head mass. Most of the pancreas is atrophic . MRI recommended.
[2023-07-04 15:37] VITALS: BP 138/84; PULSE 72
== END 2023-07-04 15:39 | disposition other institution (70) ==
LOC: EC 07:42
DX: R17 Unspecified jaundice (principal); R74.01 Elevation of levels of liver transaminase levels; K83.8 Other specified diseases of biliary tract; E11.9 Type 2 diabetes mellitus without complications; E78.5 Hyperlipidemia, unspecified; I48.91 Unspecified atrial fibrillation; M19.90 Unspecified osteoarthritis, unspecified site; I11.0 Hypertensive heart disease with heart failure; I50.9 Heart failure, unspecified; E03.9 Hypothyroidism, unspecified; Z91.018 Allergy to other foods; Z88.8 Allergy status to other drugs, medicaments and biological substances; Z79.890 Hormone replacement therapy; Z79.4 Long term (current) use of insulin; Z79.01 Long term (current) use of anticoagulants; Z79.51 Long term (current) use of inhaled steroids; Z79.899 Other long term (current) drug therapy
CPT/HCPCS: 36415; 74176; 76705; 80053; 80143; 81001; 82140; 82150; 82248; 82977; 83605; 83690; 83735; 84100; 85025; 85610; 85730; 99285